=== PATIENT | female | born 1965 | race Caucasian/White ===

== ENCOUNTER → 2016-05-08 | Outpatient (CLI) | payer BC, MEDICARE ==
[~2016-05-08] MED LIST: /ACETCOD2T PO; ACET65TA OR; ALBU0.084 INH; ALBU17IN INH; ALBU83IN INH; ALBUTEROL INH; ALDA25TA2 PO; AMBI5TAB OR; AMBI5TAB PO; AMBIEN PO; ATROVENT0.02% INH; CEFT500T OR; CHAN0.5P6 PO; CIPR0.2S AS; CLIN300C PO; COLA100C2 OR; CORE80CA PO; DIGO0.126 PO; DIOV160T5 PO; DIOV320T PO; DIOV80TA; DOCU10ELUD PO; HYDR25TA6 OR; IBUP200C PO; LASI40TA PO; LASI80TA PO; LEVO25TA5 PO; LISI10TA4 PO; LORTTAB5 PO; MAG-TAB PO; MAG400TA PO; MAGN64TASA PO; MIRALEX PO; MULTIVIT PO; MULTTAB4 PO; PLAQ200T PO; POTASSIUM PO; PRAM0.252 PO; PRED1TAB32 PO; PRED20TA OR; SERT25TA2; SYMB16INH INH; TORS20TA2 PO; TYLE325T5 PO; VENTAER IN; VITA500C24 PO; ZEST10TA4 PO; ZOLO100T PO
[2016-05-08 07:14] LABS: MEAN CORPUSCULAR HEMOGLOBIN 26.6 pg (27.0-33.0); MEAN CORPUSCULAR HGB CONC 30.2 g/dl (32.0-36.5); MEAN CORPUSCULAR VOLUME 88.1 fl (80.0-96.0); RED CELL DISTRIBUTION WIDTH 16.8 % (11.5-14.5); WHITE BLOOD COUNT 5.4 K/mm3 (4.0-10.0)
[2016-05-08 07:26] LABS: INR 1.84
[2016-05-08 07:31] LABS: ANION GAP 10 MEQ/L (8-16); BLOOD UREA NITROGEN 13 MG/DL (7-18); CALCIUM LEVEL 8.5 MG/DL (8.5-10.1); CARBON DIOXIDE LEVEL 29 MEQ/L (21-32); CHLORIDE LEVEL 104 MEQ/L (98-107); CREATININE FOR GFR 0.78 MG/DL (0.55-1.02); GLOMERULAR FILTRATION RATE > 60.0 (>51); GLUCOSE, FASTING 96 MG/DL (70-105); MAGNESIUM LEVEL 2.1 MG/DL (1.8-2.4); POTASSIUM SERUM 4.6 MEQ/L (3.5-5.1); SODIUM LEVEL 143 MEQ/L (136-145)
== END ==
LOC: M LAB 06:25
PROVIDERS: ATTEND Physician Assistant Surgical
DX: I50.9 Heart failure, unspecified (principal)

== ENCOUNTER → 2016-05-14 | Outpatient (CLI) | payer MEDICARE ==
[2016-05-14 07:52] LABS: INR 3.07
[2016-05-14 08:05] LABS: MEAN CORPUSCULAR HGB CONC 30.3 g/dl (32.0-36.5); MEAN CORPUSCULAR VOLUME 89.3 fl (80.0-96.0); RED CELL DISTRIBUTION WIDTH 15.8 % (11.5-14.5); WHITE BLOOD COUNT 5.2 K/mm3 (4.0-10.0)
[2016-05-14 08:12] LABS: ANION GAP 7 MEQ/L (8-16); BLOOD UREA NITROGEN 10 MG/DL (7-18); CALCIUM LEVEL 8.1 MG/DL (8.5-10.1); CARBON DIOXIDE LEVEL 28 MEQ/L (21-32); CHLORIDE LEVEL 106 MEQ/L (98-107); CREATININE FOR GFR 0.94 MG/DL (0.55-1.02); GLOMERULAR FILTRATION RATE > 60.0 (>51); GLUCOSE, FASTING 99 MG/DL (70-105); MAGNESIUM LEVEL 2.5 MG/DL (1.8-2.4); POTASSIUM SERUM 4.4 MEQ/L (3.5-5.1); SODIUM LEVEL 141 MEQ/L (136-145)
== END ==
LOC: M LAB 07:21
PROVIDERS: ATTEND Physician Assistant Surgical
DX: I50.9 Heart failure, unspecified (principal); I42.9 Cardiomyopathy, unspecified; Z95.811 Presence of heart assist device; Z79.01 Long term (current) use of anticoagulants

== ENCOUNTER → 2016-05-22 | Outpatient (CLI) | payer MEDICARE ==
[2016-05-22 06:54] LABS: MEAN CORPUSCULAR HEMOGLOBIN 25.5 pg (27.0-33.0); MEAN CORPUSCULAR HGB CONC 29.8 g/dl (32.0-36.5); MEAN CORPUSCULAR VOLUME 85.5 fl (80.0-96.0); RED CELL DISTRIBUTION WIDTH 17.5 % (11.5-14.5); WHITE BLOOD COUNT 4.8 K/mm3 (4.0-10.0)
[2016-05-22 07:03] LABS: INR 2.83
[2016-05-22 07:12] LABS: ANION GAP 9 MEQ/L (8-16); BLOOD UREA NITROGEN 17 MG/DL (7-18); CALCIUM LEVEL 8.8 MG/DL (8.5-10.1); CARBON DIOXIDE LEVEL 26 MEQ/L (21-32); CHLORIDE LEVEL 104 MEQ/L (98-107); CREATININE FOR GFR 0.95 MG/DL (0.55-1.02); GLOMERULAR FILTRATION RATE > 60.0 (>51); GLUCOSE, FASTING 98 MG/DL (70-105); MAGNESIUM LEVEL 2.3 MG/DL (1.8-2.4); POTASSIUM SERUM 3.8 MEQ/L (3.5-5.1); SODIUM LEVEL 139 MEQ/L (136-145)
== END ==
LOC: M LAB 06:32
PROVIDERS: ATTEND Physician Assistant Surgical
DX: I50.9 Heart failure, unspecified (principal); I42.9 Cardiomyopathy, unspecified; Z95.811 Presence of heart assist device; Z79.01 Long term (current) use of anticoagulants

== ENCOUNTER → 2016-05-29 | Outpatient (CLI) | payer MEDICARE ==
[2016-05-29 06:59] LABS: MEAN CORPUSCULAR HEMOGLOBIN 25.4 pg (27.0-33.0); MEAN CORPUSCULAR VOLUME 84.9 fl (80.0-96.0); RED CELL DISTRIBUTION WIDTH 17.3 % (11.5-14.5); WHITE BLOOD COUNT 6.3 K/mm3 (4.0-10.0)
[2016-05-29 07:02] LABS: INR 3.74
[2016-05-29 07:11] LABS: ANION GAP 7 MEQ/L (8-16); BLOOD UREA NITROGEN 12 MG/DL (7-18); CARBON DIOXIDE LEVEL 28 MEQ/L (21-32); CHLORIDE LEVEL 105 MEQ/L (98-107); CREATININE FOR GFR 0.88 MG/DL (0.55-1.02); GLOMERULAR FILTRATION RATE > 60.0 (>51); GLUCOSE, FASTING 98 MG/DL (70-105); MAGNESIUM LEVEL 2.4 MG/DL (1.8-2.4); POTASSIUM SERUM 4.2 MEQ/L (3.5-5.1); SODIUM LEVEL 140 MEQ/L (136-145)
== END ==
LOC: M LAB 06:32
PROVIDERS: ATTEND Physician Assistant Surgical
DX: I50.9 Heart failure, unspecified (principal); I42.9 Cardiomyopathy, unspecified; Z95.811 Presence of heart assist device; Z79.01 Long term (current) use of anticoagulants

== ENCOUNTER → 2016-06-05 | Outpatient (CLI) | payer MEDICARE ==
[2016-06-05 07:13] LABS: MEAN CORPUSCULAR HEMOGLOBIN 25.4 pg (27.0-33.0); MEAN CORPUSCULAR VOLUME 84.5 fl (80.0-96.0); RED CELL DISTRIBUTION WIDTH 16.6 % (11.5-14.5); WHITE BLOOD COUNT 4.8 K/mm3 (4.0-10.0)
[2016-06-05 07:17] LABS: INR 3.76
[2016-06-05 07:25] LABS: ANION GAP 7 MEQ/L (8-16); BLOOD UREA NITROGEN 14 MG/DL (7-18); CARBON DIOXIDE LEVEL 30 MEQ/L (21-32); CHLORIDE LEVEL 104 MEQ/L (98-107); CREATININE FOR GFR 0.95 MG/DL (0.55-1.02); GLOMERULAR FILTRATION RATE > 60.0 (>51); GLUCOSE, FASTING 90 MG/DL (70-105); POTASSIUM SERUM 4.1 MEQ/L (3.5-5.1); SODIUM LEVEL 141 MEQ/L (136-145)
== END ==
LOC: M LAB 06:40
PROVIDERS: ATTEND Physician Assistant Surgical
DX: I50.9 Heart failure, unspecified (principal); I42.9 Cardiomyopathy, unspecified; Z79.01 Long term (current) use of anticoagulants; Z95.811 Presence of heart assist device

== ENCOUNTER → 2016-06-13 | Outpatient (CLI) | payer MEDICARE ==
[2016-06-13 06:39] LABS: MEAN CORPUSCULAR HEMOGLOBIN 24.7 pg (27.0-33.0); MEAN CORPUSCULAR HGB CONC 29.5 g/dl (32.0-36.5); MEAN CORPUSCULAR VOLUME 83.7 fl (80.0-96.0); RED CELL DISTRIBUTION WIDTH 16.4 % (11.5-14.5)
[2016-06-13 06:45] LABS: INR 3.02
[2016-06-13 06:57] LABS: ANION GAP 7 MEQ/L (8-16); BLOOD UREA NITROGEN 12 MG/DL (7-18); CALCIUM LEVEL 8.2 MG/DL (8.5-10.1); CARBON DIOXIDE LEVEL 29 MEQ/L (21-32); CHLORIDE LEVEL 103 MEQ/L (98-107); CREATININE FOR GFR 0.92 MG/DL (0.55-1.02); GLOMERULAR FILTRATION RATE > 60.0 (>51); GLUCOSE, FASTING 114 MG/DL (70-105); MAGNESIUM LEVEL 2.1 MG/DL (1.8-2.4); POTASSIUM SERUM 3.8 MEQ/L (3.5-5.1); SODIUM LEVEL 139 MEQ/L (136-145)
== END ==
LOC: M LAB 06:10
PROVIDERS: ATTEND Physician Assistant Surgical
DX: Z79.01 Long term (current) use of anticoagulants (principal); I50.9 Heart failure, unspecified; I42.9 Cardiomyopathy, unspecified; Z95.811 Presence of heart assist device

== ENCOUNTER → 2016-06-20 | Outpatient (CLI) | payer MEDICARE ==
[2016-06-20 07:20] LABS: INR 2.98
[2016-06-20 07:21] LABS: MEAN CORPUSCULAR HEMOGLOBIN 25.3 pg (27.0-33.0); MEAN CORPUSCULAR HGB CONC 30.5 g/dl (32.0-36.5); MEAN CORPUSCULAR VOLUME 83.1 fl (80.0-96.0); RED CELL DISTRIBUTION WIDTH 15.9 % (11.5-14.5); WHITE BLOOD COUNT 4.3 K/mm3 (4.0-10.0)
[2016-06-20 07:36] LABS: ANION GAP 8 MEQ/L (8-16); BLOOD UREA NITROGEN 12 MG/DL (7-18); CALCIUM LEVEL 8.5 MG/DL (8.5-10.1); CARBON DIOXIDE LEVEL 30 MEQ/L (21-32); CHLORIDE LEVEL 103 MEQ/L (98-107); CREATININE FOR GFR 0.85 MG/DL (0.55-1.02); GLOMERULAR FILTRATION RATE > 60.0 (>51); GLUCOSE, FASTING 87 MG/DL (70-105); POTASSIUM SERUM 3.8 MEQ/L (3.5-5.1); SODIUM LEVEL 141 MEQ/L (136-145)
== END ==
LOC: M LAB 06:23
PROVIDERS: ATTEND Physician Assistant Surgical
DX: I50.9 Heart failure, unspecified (principal); I42.9 Cardiomyopathy, unspecified; Z95.811 Presence of heart assist device; Z79.01 Long term (current) use of anticoagulants

== ENCOUNTER → 2016-06-27 | Outpatient (CLI) | payer MEDICARE ==
[~2016-06-27] MED LIST changes: +DOXY100T16 PO; +MEDR4PAK PO; +TRAZ50TA4 PO; +WARF-18 PO; +WARF-23 PO; +XANA0.5T PO
[2016-06-27 06:30] LABS: MEAN CORPUSCULAR HEMOGLOBIN 24.2 pg (27.0-33.0); MEAN CORPUSCULAR VOLUME 83.3 fl (80.0-96.0); RED CELL DISTRIBUTION WIDTH 16.6 % (11.5-14.5); WHITE BLOOD COUNT 4.8 K/mm3 (4.0-10.0)
[2016-06-27 06:39] LABS: INR 2.9
[2016-06-27 07:04] LABS: ANION GAP 7 MEQ/L (8-16); BLOOD UREA NITROGEN 12 MG/DL (7-18); CALCIUM LEVEL 7.9 MG/DL (8.5-10.1); CARBON DIOXIDE LEVEL 30 MEQ/L (21-32); CHLORIDE LEVEL 103 MEQ/L (98-107); CREATININE FOR GFR 0.91 MG/DL (0.55-1.02); GLOMERULAR FILTRATION RATE > 60.0 (>51); GLUCOSE, FASTING 130 MG/DL (70-105); MAGNESIUM LEVEL 2.2 MG/DL (1.8-2.4); SODIUM LEVEL 140 MEQ/L (136-145)
== END ==
LOC: M LAB 06:05
PROVIDERS: ATTEND Physician Assistant Surgical
DX: I50.9 Heart failure, unspecified (principal); I42.9 Cardiomyopathy, unspecified; Z95.811 Presence of heart assist device; Z79.01 Long term (current) use of anticoagulants

== ENCOUNTER 2016-06-30 15:21 | Emergency (ER) | payer MEDICARE ==
[~2016-06-30] VITALS: Ht 170.2 cm; Wt 127.0 kg
[~2016-06-30 15:21] MED LIST changes: -DOXY100T16 PO; -MEDR4PAK PO; -TRAZ50TA4 PO; -WARF-18 PO; -WARF-23 PO; -XANA0.5T PO
[2016-06-30] MEDS ORDERED: methylPREDNISolone INJ 125 MG/2 ML VIAL (J2930) IV ONE (16:00)
[2016-06-30] MEDS: IPRATROPIUM 0.5MG/ALBUTEROL 2.5MG INH SOL UD 3ML (DUONEB)(J7620) NEB SCH ×3 (16:10→16:40)
[2016-06-30] MEDS ORDERED: WARF-18 PO (16:12)
[2016-06-30] MEDS ORDERED: XANA0.5T PO (16:12)
[2016-06-30] MEDS ORDERED: WARF-23 PO (16:12)
[2016-06-30] MEDS ORDERED: TRAZ50TA4 PO (16:12)
[2016-06-30 16:17] LABS: INR 3.17
[2016-06-30 16:28] LABS: BASO % 0.2 % (0.0-1.0); EOS # 0.1 K/mm3 (0.0-0.50); EOS % 0.7 % (0.0-3.0); LARGE UNSTAINED CELL # 0.2 K/mm3 (0.0-0.4); LYMPH # 0.3 K/mm3 (1.5-4.5); LYMPH % 2.9 % (24.0-44.0); MEAN CORPUSCULAR HEMOGLOBIN 24.6 pg (27.0-33.0); MEAN CORPUSCULAR HGB CONC 30.4 g/dl (32.0-36.5); MONO # 0.4 K/mm3 (0.0-0.8); NEUTROPHILS # 7.9 K/mm3 (1.8-7.7); NEUTROPHILS % 90.2 % (36.0-66.0); PLATELET COUNT, AUTOMATED 300 k/mm3 (150-450); RED CELL DISTRIBUTION WIDTH 16.6 % (11.5-14.5); WHITE BLOOD COUNT 8.8 K/mm3 (4.0-10.0)
[2016-06-30 16:33] LABS: ANION GAP 6 MEQ/L (8-16); BLOOD UREA NITROGEN 13 MG/DL (7-18); CARBON DIOXIDE LEVEL 30 MEQ/L (21-32); CHLORIDE LEVEL 103 MEQ/L (98-107); CREATININE FOR GFR 0.97 MG/DL (0.55-1.02); GLOMERULAR FILTRATION RATE > 60.0 (>51); GLUCOSE, FASTING 88 MG/DL (70-105); POTASSIUM SERUM 4.2 MEQ/L (3.5-5.1); SODIUM LEVEL 139 MEQ/L (136-145)
[2016-06-30] MEDS ORDERED: MEDR4PAK PO (17:30)
[2016-06-30] MEDS ORDERED: DOXY100T16 PO (17:32)
[2016-06-30 17:55] VITALS: BP 94/62
--- NOTE | 2016-07-01 07:16 | REP ---
PORTABLE CHEST: AP portable view of the chest is performed and compared to prior studies, most recently 04/28/2016. There is cardiomegaly with pulmonary venous hypertension. The findings are similar to the prior exam. There is no evidence of acute infiltrate. The mediastinal silhouette appears unchanged. Left pacemaker is again noted as well as multiple sternal wires. Ventricular assist pump is again seen. IMPRESSION: Cardiomegaly. No new infiltrate. Signed by Brody Carrillo MD 07/01/2016 01:53 P
--- NOTE | 2016-07-01 20:08 | ECGEPIP ---
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
== END 2016-06-30 17:58 | disposition home or self-care (01) ==
LOC: M ED 16:59
DX: J44.1 Chronic obstructive pulmonary disease with (acute) exacerbation (principal); I25.5 Ischemic cardiomyopathy; Z79.899 Other long term (current) drug therapy; Z88.5 Allergy status to narcotic agent; Z88.2 Allergy status to sulfonamides; Z79.01 Long term (current) use of anticoagulants; Z87.891 Personal history of nicotine dependence; Z95.810 Presence of automatic (implantable) cardiac defibrillator; I10 Essential (primary) hypertension; I83.90 Asymptomatic varicose veins of unspecified lower extremity; G47.30 Sleep apnea, unspecified; N39.3 Stress incontinence (female) (male); F41.9 Anxiety disorder, unspecified; F32.9 Major depressive disorder, single episode, unspecified
CPT/HCPCS: 36415; 71010; 80048; 82550; 82553; 83615; 83880; 84484; 85025; 85610; 87040; 87804; 93005; 93041; 94640; 94760; 96374; 99285; J2930

== ENCOUNTER 2016-07-01 16:07 | Emergency (ER) | payer MEDICARE ==
[~2016-07-01] VITALS: Ht 170.2 cm; Wt 127.0 kg
[~2016-07-01 16:07] MED LIST changes: +DOXY100T16 PO; +MEDR4PAK PO; +TRAZ50TA4 PO; +WARF-18 PO; +WARF-23 PO; +XANA0.5T PO
[2016-07-01] MEDS: IPRATROPIUM 0.5MG/ALBUTEROL 2.5MG INH SOL UD 3ML (DUONEB)(J7620) NEB SCH ×3 (17:51→18:22)
[2016-07-01] MEDS ORDERED: methylPREDNISolone INJ 125 MG/2 ML VIAL (J2930) IV ONE (18:45)
[2016-07-01] MEDS ORDERED: ACETAMINOPHEN TAB 650MG DOSE (2X325MG) PO ONE (19:30)
[2016-07-01 19:36] VITALS: BP 110/70
== END 2016-07-01 19:37 | disposition short-term general hospital (02) ==
LOC: EDBD 16:07 → M ED 17:23
DX: J44.1 Chronic obstructive pulmonary disease with (acute) exacerbation (principal); Z79.899 Other long term (current) drug therapy; Z95.811 Presence of heart assist device; Z79.01 Long term (current) use of anticoagulants; Z88.2 Allergy status to sulfonamides; Z88.5 Allergy status to narcotic agent; F17.210 Nicotine dependence, cigarettes, uncomplicated
CPT/HCPCS: 94640; 96374; 99284; J2930

== ENCOUNTER → 2016-07-16 | Outpatient (CLI) | payer MEDICARE ==
[2016-07-16 07:26] LABS: MEAN CORPUSCULAR HEMOGLOBIN 25.9 pg (27.0-33.0); MEAN CORPUSCULAR HGB CONC 30.6 g/dl (32.0-36.5); MEAN CORPUSCULAR VOLUME 84.6 fl (80.0-96.0); RED CELL DISTRIBUTION WIDTH 18.5 % (11.5-14.5)
[2016-07-16 07:34] LABS: INR 2.46
[2016-07-16 07:49] LABS: ANION GAP 7 MEQ/L (8-16); BLOOD UREA NITROGEN 16 MG/DL (7-18); CARBON DIOXIDE LEVEL 33 MEQ/L (21-32); CHLORIDE LEVEL 102 MEQ/L (98-107); CREATININE FOR GFR 0.99 MG/DL (0.55-1.02); GLOMERULAR FILTRATION RATE > 60.0 (>51); GLUCOSE, FASTING 81 MG/DL (70-105); MAGNESIUM LEVEL 2.1 MG/DL (1.8-2.4); POTASSIUM SERUM 3.9 MEQ/L (3.5-5.1); SODIUM LEVEL 142 MEQ/L (136-145)
== END ==
LOC: M LAB 06:58
PROVIDERS: ATTEND Physician Assistant Surgical
DX: I50.9 Heart failure, unspecified (principal); I42.9 Cardiomyopathy, unspecified; Z79.01 Long term (current) use of anticoagulants; Z95.811 Presence of heart assist device

== ENCOUNTER → 2016-07-24 | Outpatient (CLI) | payer MEDICARE ==
[2016-07-24 06:48] LABS: MEAN CORPUSCULAR HEMOGLOBIN 26.2 pg (27.0-33.0); MEAN CORPUSCULAR HGB CONC 30.6 g/dl (32.0-36.5); MEAN CORPUSCULAR VOLUME 85.6 fl (80.0-96.0); RED CELL DISTRIBUTION WIDTH 19.4 % (11.5-14.5); WHITE BLOOD COUNT 4.4 K/mm3 (4.0-10.0)
[2016-07-24 06:54] LABS: INR 3.13
[2016-07-24 07:27] LABS: ANION GAP 6 MEQ/L (8-16); BLOOD UREA NITROGEN 16 MG/DL (7-18); CALCIUM LEVEL 8.2 MG/DL (8.5-10.1); CARBON DIOXIDE LEVEL 31 MEQ/L (21-32); CHLORIDE LEVEL 103 MEQ/L (98-107); CREATININE FOR GFR 0.91 MG/DL (0.55-1.02); GLOMERULAR FILTRATION RATE > 60.0 (>51); GLUCOSE, FASTING 77 MG/DL (70-105); MAGNESIUM LEVEL 2.2 MG/DL (1.8-2.4); POTASSIUM SERUM 4.3 MEQ/L (3.5-5.1); SODIUM LEVEL 140 MEQ/L (136-145)
== END ==
LOC: M LAB 06:27
PROVIDERS: ATTEND Physician Assistant Surgical
DX: I50.9 Heart failure, unspecified (principal); I42.9 Cardiomyopathy, unspecified

== ENCOUNTER → 2016-08-01 | Outpatient (CLI) | payer MEDICARE ==
[2016-08-01 07:04] LABS: INR 2.58; MEAN CORPUSCULAR HEMOGLOBIN 26.7 pg (27.0-33.0); MEAN CORPUSCULAR HGB CONC 30.9 g/dl (32.0-36.5); MEAN CORPUSCULAR VOLUME 86.6 fl (80.0-96.0); RED CELL DISTRIBUTION WIDTH 20.7 % (11.5-14.5); WHITE BLOOD COUNT 3.4 K/mm3 (4.0-10.0)
[2016-08-01 07:41] LABS: ANION GAP 6 MEQ/L (8-16); BLOOD UREA NITROGEN 17 MG/DL (7-18); CALCIUM LEVEL 7.7 MG/DL (8.5-10.1); CARBON DIOXIDE LEVEL 29 MEQ/L (21-32); CHLORIDE LEVEL 105 MEQ/L (98-107); CREATININE FOR GFR 0.91 MG/DL (0.55-1.02); GLOMERULAR FILTRATION RATE > 60.0 (>51); GLUCOSE, FASTING 92 MG/DL (70-105); MAGNESIUM LEVEL 2.1 MG/DL (1.8-2.4); POTASSIUM SERUM 4.1 MEQ/L (3.5-5.1); SODIUM LEVEL 140 MEQ/L (136-145)
== END ==
LOC: M LAB 06:14
PROVIDERS: ATTEND Physician Assistant Surgical
DX: I50.9 Heart failure, unspecified (principal)

== ENCOUNTER → 2016-08-02 | Outpatient (CLI) | payer MEDICARE ==
[2016-08-02 12:47] LABS: INR 2.59; MEAN CORPUSCULAR HEMOGLOBIN 27.7 pg (27.0-33.0); MEAN CORPUSCULAR HGB CONC 31.5 g/dl (32.0-36.5); RED CELL DISTRIBUTION WIDTH 20.6 % (11.5-14.5); WHITE BLOOD COUNT 4.1 K/mm3 (4.0-10.0)
[2016-08-02 13:07] LABS: ANION GAP 4 MEQ/L (8-16); BLOOD UREA NITROGEN 21 MG/DL (7-18); CALCIUM LEVEL 8.2 MG/DL (8.5-10.1); CARBON DIOXIDE LEVEL 30 MEQ/L (21-32); CHLORIDE LEVEL 106 MEQ/L (98-107); CREATININE FOR GFR 0.96 MG/DL (0.55-1.02); GLOMERULAR FILTRATION RATE > 60.0 (>51); GLUCOSE, FASTING 112 MG/DL (70-105); MAGNESIUM LEVEL 2.3 MG/DL (1.8-2.4); POTASSIUM SERUM 4.3 MEQ/L (3.5-5.1); SODIUM LEVEL 140 MEQ/L (136-145)
== END ==
LOC: M LAB 12:01
PROVIDERS: ATTEND Physician Assistant Surgical

== ENCOUNTER 2016-08-06 10:26 | Outpatient (CLI) | payer MEDICARE ==
[~2016-08-06] VITALS: Ht 166.9 cm; Wt 134.7 kg
[2016-08-06] MEDS ORDERED: diphenhydrAMINE 25 MG CAP PO ONE (10:45)
[2016-08-06] MEDS ORDERED: ACETAMINOPHEN TAB 650MG DOSE (2X325MG) PO ONE (10:45)
[2016-08-06] MEDS ORDERED: FUROSEMIDE 40 MG/4 ML VIAL (J1940) IV ONE (11:30)
[2016-08-06 17:05] LABS: MEAN CORPUSCULAR HEMOGLOBIN 27.2 pg (27.0-33.0); MEAN CORPUSCULAR HGB CONC 31.7 g/dl (32.0-36.5); WHITE BLOOD COUNT 6.6 K/mm3 (4.0-10.0)
== END 2016-08-06 17:25 | disposition home or self-care (01) ==
LOC: M INFU 10:26
PROVIDERS: ATTEND Physician Assistant
DX: D64.9 Anemia, unspecified (principal); I42.9 Cardiomyopathy, unspecified; I50.20 Unspecified systolic (congestive) heart failure; Z51.81 Encounter for therapeutic drug level monitoring; Z79.01 Long term (current) use of anticoagulants; Z79.811 Long term (current) use of aromatase inhibitors; Z79.899 Other long term (current) drug therapy; Z88.2 Allergy status to sulfonamides; Z88.5 Allergy status to narcotic agent
CPT/HCPCS: 36415; 36430; 80048; 83615; 83735; 85027; 85610; 86850; 86900; 86901; 86920; G0463; J1940; P9016

== ENCOUNTER → 2016-08-06 | Outpatient (CLI) | payer MEDICARE ==
[2016-08-06 07:23] LABS: INR 2.66
[2016-08-06 07:27] LABS: MEAN CORPUSCULAR HEMOGLOBIN 26.4 pg (27.0-33.0); MEAN CORPUSCULAR HGB CONC 30.2 g/dl (32.0-36.5); MEAN CORPUSCULAR VOLUME 87.3 fl (80.0-96.0); RED CELL DISTRIBUTION WIDTH 20.2 % (11.5-14.5); WHITE BLOOD COUNT 4.8 K/mm3 (4.0-10.0)
[2016-08-06 07:35] LABS: ANION GAP 7 MEQ/L (8-16); BLOOD UREA NITROGEN 20 MG/DL (7-18); CALCIUM LEVEL 8.2 MG/DL (8.5-10.1); CARBON DIOXIDE LEVEL 28 MEQ/L (21-32); CHLORIDE LEVEL 106 MEQ/L (98-107); GLOMERULAR FILTRATION RATE > 60.0 (>51); GLUCOSE, FASTING 80 MG/DL (70-105); MAGNESIUM LEVEL 2.1 MG/DL (1.8-2.4); POTASSIUM SERUM 4.1 MEQ/L (3.5-5.1); SODIUM LEVEL 141 MEQ/L (136-145)
== END ==
LOC: M LAB 06:12
PROVIDERS: ATTEND Physician Assistant Surgical
DX: I50.9 Heart failure, unspecified (principal); I42.9 Cardiomyopathy, unspecified; Z51.81 Encounter for therapeutic drug level monitoring; Z79.01 Long term (current) use of anticoagulants; Z95.811 Presence of heart assist device

== ENCOUNTER → 2016-08-13 | Outpatient (CLI) | payer MEDICARE ==
[2016-08-13 07:29] LABS: MEAN CORPUSCULAR HEMOGLOBIN 28.4 pg (27.0-33.0); MEAN CORPUSCULAR HGB CONC 32.2 g/dl (32.0-36.5); MEAN CORPUSCULAR VOLUME 88.3 fl (80.0-96.0); RED CELL DISTRIBUTION WIDTH 18.2 % (11.5-14.5); WHITE BLOOD COUNT 4.7 K/mm3 (4.0-10.0)
[2016-08-13 07:34] LABS: INR 1.68
[2016-08-13 07:53] LABS: ANION GAP 5 MEQ/L (8-16); BLOOD UREA NITROGEN 13 MG/DL (7-18); CALCIUM LEVEL 8.1 MG/DL (8.5-10.1); CARBON DIOXIDE LEVEL 32 MEQ/L (21-32); CHLORIDE LEVEL 104 MEQ/L (98-107); GLOMERULAR FILTRATION RATE > 60.0 (>51); GLUCOSE, FASTING 87 MG/DL (70-105); MAGNESIUM LEVEL 2.2 MG/DL (1.8-2.4); SODIUM LEVEL 141 MEQ/L (136-145)
== END ==
LOC: M LAB 07:05
PROVIDERS: ATTEND Physician Assistant Surgical
DX: I50.9 Heart failure, unspecified (principal); I42.9 Cardiomyopathy, unspecified

== ENCOUNTER → 2016-08-16 | Outpatient (CLI) | payer MEDICARE ==
--- NOTE | 2016-08-16 13:49 | REP ---
DIGITAL DIAGNOSTIC UNILATERAL RIGHT BREAST MAMMOGRAPHY WITH CAD AND FOCUSED RIGHT BREAST SONOGRAPHY: HISTORY: New right breast lump. The patient is on anticoagulant therapy and has a left ventricular assist device. She reports a new lump in the inferomedial quadrant of the right breast for the past week. There is ecchymosis of the skin at the site. A skin marker is affixed to the skin for today's mammography. MAMMOGRAPHIC FINDINGS: CC, MLO, and magnified focal spot compression CC, MLO and true ML views are obtained at the site of the lump in the right breast. There is an ill-defined linear density just beneath the skin at the site of the palpable lump in the inferomedial right breast. Slight dermal thickening is seen. The ill-defined density measures approximately 18 mm in greatest diameter. No spiculation or microcalcification is seen. There is a needle biopsy marker clip projecting in the lateral aspect of the right breast. No other significant mammographic finding is seen. Normal lymph nodes are again noted in the right axilla. SONOGRAPHIC FINDINGS: The right breast is scanned from 2- o'clock position to the 4-o'clock position through the area of palpable lump and bruising. Somewhat homogeneous background echotexture is seen. There is a complex cystic area with hyperechoic edges in the region of the palpable lump measuring 1.5 x 1.3 x 0.9 cm, 5.4 cm from the nipple. Given the overlying ecchymosis and history of anticoagulant therapy, this is felt to most likely represent a small soft tissue hematoma. IMPRESSION: BIRADS category 0 incomplete right breast imaging. Ill-defined density at the site of the palpable lump corresponds to a hypoechoic complex cystic area 1.5 cm in greatest diameter sonographically. This is most likely a small hematoma. Follow-up ultrasound is recommended in 6 to 8 weeks. BI-RADS/ACR category 0 mammogram, incomplete. Additional imaging and/or prior images are needed before a final assessment can be assigned. This mammogram was interpreted with the aid of an FDA-approved computer-aided detection system. The patient states she/he had a clinical breast exam in August 16, 2016 The patient letter being requested is M0. Signed by González Lafleur MD 08/16/2016 04:47 P
== END ==
LOC: M RAD 09:59
PROVIDERS: ATTEND Rehabilitation Practitioner
DX: N63 Unspecified lump in breast (principal)
CPT/HCPCS: 76642; G0206

== ENCOUNTER → 2016-08-21 | Outpatient (CLI) | payer MEDICARE ==
[2016-08-21 08:51] LABS: INR 2.34
[2016-08-21 08:54] LABS: MEAN CORPUSCULAR HEMOGLOBIN 25.9 pg (27.0-33.0); MEAN CORPUSCULAR HGB CONC 29.5 g/dl (32.0-36.5); MEAN CORPUSCULAR VOLUME 87.8 fl (80.0-96.0); RED CELL DISTRIBUTION WIDTH 16.6 % (11.5-14.5)
[2016-08-21 09:06] LABS: ANION GAP 7 MEQ/L (8-16); BLOOD UREA NITROGEN 13 MG/DL (7-18); CALCIUM LEVEL 7.8 MG/DL (8.5-10.1); CARBON DIOXIDE LEVEL 28 MEQ/L (21-32); CHLORIDE LEVEL 105 MEQ/L (98-107); CREATININE FOR GFR 0.94 MG/DL (0.55-1.02); GLOMERULAR FILTRATION RATE > 60.0 (>51); GLUCOSE, FASTING 85 MG/DL (70-105); MAGNESIUM LEVEL 2.2 MG/DL (1.8-2.4); POTASSIUM SERUM 4.1 MEQ/L (3.5-5.1); SODIUM LEVEL 140 MEQ/L (136-145)
== END ==
LOC: M LAB 08:06
PROVIDERS: ATTEND Physician Assistant Surgical
DX: I50.9 Heart failure, unspecified (principal)

== ENCOUNTER → 2016-08-27 | Outpatient (CLI) | payer MEDICARE ==
[2016-08-27 07:02] LABS: MEAN CORPUSCULAR HEMOGLOBIN 27.4 pg (27.0-33.0); MEAN CORPUSCULAR HGB CONC 31.9 g/dl (32.0-36.5); MEAN CORPUSCULAR VOLUME 85.9 fl (80.0-96.0); RED CELL DISTRIBUTION WIDTH 16.6 % (11.5-14.5); WHITE BLOOD COUNT 5.8 K/mm3 (4.0-10.0)
[2016-08-27 07:10] LABS: INR 2.16
[2016-08-27 07:19] LABS: CALCIUM LEVEL 7.5 MG/DL (8.5-10.1); CREATININE FOR GFR 1.14 MG/DL (0.55-1.02); GLOMERULAR FILTRATION RATE 53.5 (>51); MAGNESIUM LEVEL 2.2 MG/DL (1.8-2.4); POTASSIUM SERUM 3.9 MEQ/L (3.5-5.1)
== END ==
LOC: M LAB 06:18
PROVIDERS: ATTEND Physician Assistant Surgical
DX: I50.9 Heart failure, unspecified (principal); I42.9 Cardiomyopathy, unspecified; Z95.811 Presence of heart assist device; Z79.01 Long term (current) use of anticoagulants

== ENCOUNTER → 2016-09-04 | Outpatient (CLI) | payer MEDICARE ==
[2016-09-04 07:30] LABS: MEAN CORPUSCULAR HGB CONC 30.2 g/dl (32.0-36.5); MEAN CORPUSCULAR VOLUME 85.9 fl (80.0-96.0); RED CELL DISTRIBUTION WIDTH 16.3 % (11.5-14.5); WHITE BLOOD COUNT 6.8 K/mm3 (4.0-10.0)
[2016-09-04 07:39] LABS: ANION GAP 3 MEQ/L (8-16); BLOOD UREA NITROGEN 18 MG/DL (7-18); CALCIUM LEVEL 8.3 MG/DL (8.5-10.1); CARBON DIOXIDE LEVEL 31 MEQ/L (21-32); CHLORIDE LEVEL 105 MEQ/L (98-107); CREATININE FOR GFR 0.78 MG/DL (0.55-1.02); GLOMERULAR FILTRATION RATE > 60.0 (>51); GLUCOSE, FASTING 106 MG/DL (70-105); INR 1.88; MAGNESIUM LEVEL 2.6 MG/DL (1.8-2.4); POTASSIUM SERUM 4.2 MEQ/L (3.5-5.1); SODIUM LEVEL 139 MEQ/L (136-145)
== END ==
LOC: M LAB 06:30
PROVIDERS: ATTEND Physician Assistant Surgical
DX: I50.9 Heart failure, unspecified (principal); I42.9 Cardiomyopathy, unspecified; Z95.811 Presence of heart assist device; Z79.01 Long term (current) use of anticoagulants

== ENCOUNTER → 2016-09-11 | Outpatient (CLI) | payer MEDICARE ==
[2016-09-11 06:41] LABS: MEAN CORPUSCULAR HEMOGLOBIN 24.7 pg (27.0-33.0); MEAN CORPUSCULAR HGB CONC 29.7 g/dl (32.0-36.5); MEAN CORPUSCULAR VOLUME 83.3 fl (80.0-96.0); RED CELL DISTRIBUTION WIDTH 16.5 % (11.5-14.5); WHITE BLOOD COUNT 5.4 K/mm3 (4.0-10.0)
[2016-09-11 06:48] LABS: INR 1.95
[2016-09-11 06:54] LABS: ANION GAP 4 MEQ/L (8-16); BLOOD UREA NITROGEN 22 MG/DL (7-18); CALCIUM LEVEL 8.1 MG/DL (8.5-10.1); CARBON DIOXIDE LEVEL 33 MEQ/L (21-32); CHLORIDE LEVEL 103 MEQ/L (98-107); CREATININE FOR GFR 1.02 MG/DL (0.55-1.02); GLOMERULAR FILTRATION RATE > 60.0 (>51); GLUCOSE, FASTING 113 MG/DL (70-105); MAGNESIUM LEVEL 2.2 MG/DL (1.8-2.4); POTASSIUM SERUM 4.1 MEQ/L (3.5-5.1); SODIUM LEVEL 140 MEQ/L (136-145)
== END ==
LOC: M LAB 06:09
PROVIDERS: ATTEND Physician Assistant Surgical
DX: I50.9 Heart failure, unspecified (principal); I42.9 Cardiomyopathy, unspecified; Z95.811 Presence of heart assist device; Z79.01 Long term (current) use of anticoagulants

== ENCOUNTER → 2016-09-18 | Outpatient (CLI) | payer MEDICARE ==
[2016-09-18 07:12] LABS: INR 1.98
[2016-09-18 07:19] LABS: MEAN CORPUSCULAR HEMOGLOBIN 24.8 pg (27.0-33.0); MEAN CORPUSCULAR HGB CONC 29.9 g/dl (32.0-36.5); MEAN CORPUSCULAR VOLUME 82.9 fl (80.0-96.0); RED CELL DISTRIBUTION WIDTH 17.1 % (11.5-14.5); WHITE BLOOD COUNT 5.6 K/mm3 (4.0-10.0)
[2016-09-18 07:23] LABS: ALBUMIN 3.4 GM/DL (3.2-5.2); ALBUMIN/GLOBULIN RATIO 1.06 (1.00-1.93); ALKALINE PHOSPHATASE 56 U/L (45-117); ALT/SGPT 30 U/L (12-78); ANION GAP 6 MEQ/L (8-16); AST/SGOT 19 U/L (15-37); BILIRUBIN,TOTAL 0.3 MG/DL (0.2-1.0); BLOOD UREA NITROGEN 13 MG/DL (7-18); CALCIUM LEVEL 7.7 MG/DL (8.5-10.1); CARBON DIOXIDE LEVEL 30 MEQ/L (21-32); CHLORIDE LEVEL 105 MEQ/L (98-107); CREATININE FOR GFR 0.87 MG/DL (0.55-1.02); GLOMERULAR FILTRATION RATE > 60.0 (>51); GLUCOSE, FASTING 96 MG/DL (70-105); MAGNESIUM LEVEL 2.2 MG/DL (1.8-2.4); POTASSIUM SERUM 4.1 MEQ/L (3.5-5.1); SODIUM LEVEL 141 MEQ/L (136-145); TOTAL PROTEIN 6.6 GM/DL (6.4-8.2)
== END ==
LOC: M LAB 06:37
PROVIDERS: ATTEND Physician Assistant Surgical
DX: Z95.811 Presence of heart assist device (principal)

== ENCOUNTER → 2016-10-03 | Outpatient (CLI) | payer MEDICARE ==
[2016-10-03 06:37] LABS: MEAN CORPUSCULAR HEMOGLOBIN 25.3 pg (27.0-33.0); MEAN CORPUSCULAR HGB CONC 30.7 g/dl (32.0-36.5); MEAN CORPUSCULAR VOLUME 82.4 fl (80.0-96.0); RED CELL DISTRIBUTION WIDTH 17.6 % (11.5-14.5)
[2016-10-03 06:45] LABS: INR 1.58
[2016-10-03 07:00] LABS: ALBUMIN 3.8 GM/DL (3.2-5.2); ALBUMIN/GLOBULIN RATIO 1.09 (1.00-1.93); BILIRUBIN,TOTAL 0.4 MG/DL (0.2-1.0); CALCIUM LEVEL 8.3 MG/DL (8.5-10.1); CREATININE FOR GFR 1.04 MG/DL (0.55-1.02); GLOMERULAR FILTRATION RATE 59.5 (>51); MAGNESIUM LEVEL 2.2 MG/DL (1.8-2.4); POTASSIUM SERUM 3.8 MEQ/L (3.5-5.1); TOTAL PROTEIN 7.3 GM/DL (6.4-8.2)
== END ==
LOC: M LAB 06:15
PROVIDERS: ATTEND Physician Assistant Surgical
DX: Z95.811 Presence of heart assist device (principal)

== ENCOUNTER → 2016-10-10 | Outpatient (CLI) | payer MEDICARE ==
[2016-10-10 08:28] LABS: MEAN CORPUSCULAR HEMOGLOBIN 25.9 pg (27.0-33.0); MEAN CORPUSCULAR HGB CONC 31.1 g/dl (32.0-36.5); WHITE BLOOD COUNT 3.5 K/mm3 (4.0-10.0)
[2016-10-10 08:33] LABS: INR 2.02
[2016-10-10 08:52] LABS: ALBUMIN 3.4 GM/DL (3.2-5.2); ALBUMIN/GLOBULIN RATIO 1.13 (1.00-1.93); ALKALINE PHOSPHATASE 57 U/L (45-117); ALT/SGPT 32 U/L (12-78); ANION GAP 4 MEQ/L (8-16); AST/SGOT 27 U/L (15-37); BILIRUBIN,TOTAL 0.4 MG/DL (0.2-1.0); BLOOD UREA NITROGEN 17 MG/DL (7-18); CALCIUM LEVEL 8.2 MG/DL (8.5-10.1); CARBON DIOXIDE LEVEL 33 MEQ/L (21-32); CHLORIDE LEVEL 100 MEQ/L (98-107); CREATININE FOR GFR 0.96 MG/DL (0.55-1.02); GLOMERULAR FILTRATION RATE > 60.0 (>51); GLUCOSE, FASTING 87 MG/DL (70-105); MAGNESIUM LEVEL 2.2 MG/DL (1.8-2.4); POTASSIUM SERUM 4.1 MEQ/L (3.5-5.1); SODIUM LEVEL 137 MEQ/L (136-145); TOTAL PROTEIN 6.4 GM/DL (6.4-8.2)
== END ==
LOC: M LAB 07:40
PROVIDERS: ATTEND Physician Assistant Surgical
DX: Z95.811 Presence of heart assist device (principal)

== ENCOUNTER → 2016-10-18 | Outpatient (CLI) | payer MEDICARE ==
[2016-10-18 07:02] LABS: MEAN CORPUSCULAR HEMOGLOBIN 25.9 pg (27.0-33.0); MEAN CORPUSCULAR HGB CONC 31.4 g/dl (32.0-36.5); MEAN CORPUSCULAR VOLUME 82.7 fl (80.0-96.0); RED CELL DISTRIBUTION WIDTH 18.6 % (11.5-14.5); WHITE BLOOD COUNT 5.4 K/mm3 (4.0-10.0)
[2016-10-18 07:24] LABS: ALBUMIN 3.7 GM/DL (3.2-5.2); ALBUMIN/GLOBULIN RATIO 1.03 (1.00-1.93); ALKALINE PHOSPHATASE 64 U/L (45-117); ALT/SGPT 31 U/L (12-78); ANION GAP 5 MEQ/L (8-16); AST/SGOT 27 U/L (15-37); BILIRUBIN,TOTAL 0.5 MG/DL (0.2-1.0); BLOOD UREA NITROGEN 23 MG/DL (7-18); CALCIUM LEVEL 8.6 MG/DL (8.5-10.1); CARBON DIOXIDE LEVEL 33 MEQ/L (21-32); CHLORIDE LEVEL 100 MEQ/L (98-107); CREATININE FOR GFR 1.01 MG/DL (0.55-1.02); GLOMERULAR FILTRATION RATE > 60.0 (>51); GLUCOSE, FASTING 102 MG/DL (70-105); POTASSIUM SERUM 4.4 MEQ/L (3.5-5.1); SODIUM LEVEL 138 MEQ/L (136-145); TOTAL PROTEIN 7.3 GM/DL (6.4-8.2)
== END ==
LOC: M LAB 06:16
PROVIDERS: ATTEND Family Medicine
DX: K92.2 Gastrointestinal hemorrhage, unspecified (principal); Z95.811 Presence of heart assist device

== ENCOUNTER → 2016-10-18 | Outpatient (CLI) | payer MEDICARE ==
[2016-10-18 07:03] LABS: MEAN CORPUSCULAR HEMOGLOBIN 27.3 pg (27.0-33.0); MEAN CORPUSCULAR VOLUME 82.8 fl (80.0-96.0); RED CELL DISTRIBUTION WIDTH 18.5 % (11.5-14.5); WHITE BLOOD COUNT 5.2 K/mm3 (4.0-10.0)
[2016-10-18 07:07] LABS: INR 1.65
[2016-10-18 07:23] LABS: ALBUMIN 3.7 GM/DL (3.2-5.2); ALBUMIN/GLOBULIN RATIO 1.09 (1.00-1.93); ALKALINE PHOSPHATASE 65 U/L (45-117); ALT/SGPT 30 U/L (12-78); ANION GAP 7 MEQ/L (8-16); AST/SGOT 27 U/L (15-37); BILIRUBIN,TOTAL 0.4 MG/DL (0.2-1.0); BLOOD UREA NITROGEN 22 MG/DL (7-18); CALCIUM LEVEL 8.5 MG/DL (8.5-10.1); CARBON DIOXIDE LEVEL 32 MEQ/L (21-32); CHLORIDE LEVEL 100 MEQ/L (98-107); CREATININE FOR GFR 1.03 MG/DL (0.55-1.02); GLOMERULAR FILTRATION RATE > 60.0 (>51); GLUCOSE, FASTING 100 MG/DL (70-105); MAGNESIUM LEVEL 2.4 MG/DL (1.8-2.4); POTASSIUM SERUM 4.1 MEQ/L (3.5-5.1); SODIUM LEVEL 139 MEQ/L (136-145); TOTAL PROTEIN 7.1 GM/DL (6.4-8.2)
== END ==
LOC: M LAB 06:20
PROVIDERS: ATTEND Physician Assistant Surgical
DX: Z95.811 Presence of heart assist device (principal); K92.9 Disease of digestive system, unspecified

== ENCOUNTER → 2016-10-23 | Outpatient (CLI) | payer MEDICARE ==
[2016-10-23 07:57] LABS: MEAN CORPUSCULAR HEMOGLOBIN 26.1 pg (27.0-33.0); MEAN CORPUSCULAR HGB CONC 31.2 g/dl (32.0-36.5); MEAN CORPUSCULAR VOLUME 83.6 fl (80.0-96.0); RED CELL DISTRIBUTION WIDTH 19.3 % (11.5-14.5); WHITE BLOOD COUNT 4.5 K/mm3 (4.0-10.0)
[2016-10-23 08:11] LABS: ALBUMIN 3.8 GM/DL (3.2-5.2); ALBUMIN/GLOBULIN RATIO 1.09 (1.00-1.93); ALKALINE PHOSPHATASE 61 U/L (45-117); ALT/SGPT 31 U/L (12-78); ANION GAP 7 MEQ/L (8-16); AST/SGOT 27 U/L (15-37); BILIRUBIN,TOTAL 0.5 MG/DL (0.2-1.0); BLOOD UREA NITROGEN 27 MG/DL (7-18); CALCIUM LEVEL 8.6 MG/DL (8.5-10.1); CARBON DIOXIDE LEVEL 30 MEQ/L (21-32); CHLORIDE LEVEL 101 MEQ/L (98-107); CREATININE FOR GFR 0.91 MG/DL (0.55-1.02); GLOMERULAR FILTRATION RATE > 60.0 (>51); GLUCOSE, FASTING 82 MG/DL (70-105); MAGNESIUM LEVEL 2.5 MG/DL (1.8-2.4); POTASSIUM SERUM 3.9 MEQ/L (3.5-5.1); SODIUM LEVEL 138 MEQ/L (136-145); TOTAL PROTEIN 7.3 GM/DL (6.4-8.2)
[2016-10-23 08:12] LABS: INR 1.93
== END ==
LOC: M LAB 06:54
PROVIDERS: ATTEND Physician Assistant Surgical
DX: Z95.811 Presence of heart assist device (principal)

== ENCOUNTER → 2016-10-30 | Outpatient (CLI) | payer MEDICARE ==
[~2016-10-30] MED LIST changes: -IBUP200C PO; +IBUP200C10 PO; +TRAZ50TA11 PO; -TRAZ50TA4 PO
[2016-10-30 08:48] LABS: MEAN CORPUSCULAR HEMOGLOBIN 26.9 pg (27.0-33.0); MEAN CORPUSCULAR HGB CONC 31.7 g/dl (32.0-36.5); MEAN CORPUSCULAR VOLUME 84.9 fl (80.0-96.0); RED CELL DISTRIBUTION WIDTH 20.3 % (11.5-14.5); WHITE BLOOD COUNT 3.8 K/mm3 (4.0-10.0)
[2016-10-30 08:53] LABS: INR 1.91
[2016-10-30 09:25] LABS: ALBUMIN 3.9 GM/DL (3.2-5.2); ALBUMIN/GLOBULIN RATIO 1.18 (1.00-1.93); ALKALINE PHOSPHATASE 61 U/L (45-117); ALT/SGPT 33 U/L (12-78); ANION GAP 7 MEQ/L (8-16); AST/SGOT 28 U/L (15-37); BILIRUBIN,TOTAL 0.5 MG/DL (0.2-1.0); BLOOD UREA NITROGEN 21 MG/DL (7-18); CALCIUM LEVEL 8.5 MG/DL (8.5-10.1); CARBON DIOXIDE LEVEL 33 MEQ/L (21-32); CHLORIDE LEVEL 97 MEQ/L (98-107); GLOMERULAR FILTRATION RATE > 60.0 (>51); GLUCOSE, FASTING 87 MG/DL (70-105); POTASSIUM SERUM 3.6 MEQ/L (3.5-5.1); SODIUM LEVEL 137 MEQ/L (136-145); TOTAL PROTEIN 7.2 GM/DL (6.4-8.2)
== END ==
LOC: M LAB 08:16
PROVIDERS: ATTEND Physician Assistant Surgical
DX: Z95.811 Presence of heart assist device (principal)

== ENCOUNTER → 2016-11-14 | Outpatient (CLI) | payer MEDICARE ==
[2016-11-14 07:40] LABS: MEAN CORPUSCULAR HEMOGLOBIN 27.8 pg (27.0-33.0); MEAN CORPUSCULAR HGB CONC 32.7 g/dl (32.0-36.5); MEAN CORPUSCULAR VOLUME 85.2 fl (80.0-96.0); RED CELL DISTRIBUTION WIDTH 20.7 % (11.5-14.5); WHITE BLOOD COUNT 5.7 K/mm3 (4.0-10.0)
[2016-11-14 07:48] LABS: INR 1.96
[2016-11-14 08:05] LABS: ALBUMIN 3.7 GM/DL (3.2-5.2); ALBUMIN/GLOBULIN RATIO 1.06 (1.00-1.93); ALKALINE PHOSPHATASE 62 U/L (45-117); ALT/SGPT 35 U/L (12-78); ANION GAP 7 MEQ/L (8-16); AST/SGOT 29 U/L (15-37); BILIRUBIN,TOTAL 0.6 MG/DL (0.2-1.0); BLOOD UREA NITROGEN 21 MG/DL (7-18); CALCIUM LEVEL 8.7 MG/DL (8.5-10.1); CARBON DIOXIDE LEVEL 32 MEQ/L (21-32); CHLORIDE LEVEL 99 MEQ/L (98-107); CREATININE FOR GFR 0.94 MG/DL (0.55-1.02); GLOMERULAR FILTRATION RATE > 60.0 (>51); GLUCOSE, FASTING 84 MG/DL (70-105); MAGNESIUM LEVEL 2.3 MG/DL (1.8-2.4); POTASSIUM SERUM 3.8 MEQ/L (3.5-5.1); SODIUM LEVEL 138 MEQ/L (136-145); TOTAL PROTEIN 7.2 GM/DL (6.4-8.2)
== END ==
LOC: M LAB 06:58
PROVIDERS: ATTEND Physician Assistant Surgical
DX: Z95.811 Presence of heart assist device (principal)

== ENCOUNTER → 2016-11-19 | Outpatient (CLI) | payer MEDICARE | LOC: M RAD 09:33 | DX: N63 Unspecified lump in breast (principal) ==

== ENCOUNTER → 2016-11-21 | Outpatient (CLI) | payer MEDICARE ==
--- NOTE | 2016-11-21 13:27 | REP ---
ULTRASOUND RIGHT BREAST: Real-time sonographic evaluation of right breast performed and correlated with prior ultrasound of 08/16/2016. Patient had ecchymosis in the region of 2 o'clock of the right breast at the time of the prior study and a complex cystic area was seen at that location felt to most likely represent a small hematoma. It measured 1.5 x 1.3 x 0.9 cm. Real-time sonographic evaluation of the right breast performed between 2-4 o'clock. In the 3 o'clock region, the previously noted complex cyst has significantly decreased in size now measuring 3 mm in diameter, consistent with resolving hematoma. IMPRESSION: ACR 2 benign. Previously noted complex cystic nodule 3 o'clock right breast has significantly decreased in size now only measuring 3 mm in diameter. Findings are consistent with resolving hematoma. ACR 2 benign. Recommend followup bilateral mammogram at a routine screening interval due November 2016. BI-RADS/ACR category 2 mammogram. Benign finding(s). Routine annual screening mammography (for women over age 40). This mammogram was interpreted with the aid of an FDA-approved computer-aided detection system. A. Negative x-ray reports should not delay biopsy if a dominant or clinically suspicious mass is present. B. Four to eight percent of cancers are not identified by x-ray. C. Adenosis and dense breasts may obscure an underlying neoplasm. Signed by Brody Carrillo MD 11/22/2016 05:51 P
== END ==
LOC: M RAD 12:25
PROVIDERS: ATTEND Physician Assistant Surgical
DX: N63 Unspecified lump in breast (principal)

== ENCOUNTER → 2016-11-27 | Outpatient (CLI) | payer MEDICARE ==
[2016-11-27 09:12] LABS: INR 2.63
[2016-11-27 09:27] LABS: MEAN CORPUSCULAR HEMOGLOBIN 29.5 pg (27.0-33.0); MEAN CORPUSCULAR HGB CONC 32.9 g/dl (32.0-36.5); MEAN CORPUSCULAR VOLUME 89.6 fl (80.0-96.0); RED CELL DISTRIBUTION WIDTH 20.3 % (11.5-14.5); WHITE BLOOD COUNT 4.2 K/mm3 (4.0-10.0)
[2016-11-27 09:39] LABS: ALBUMIN 3.4 GM/DL (3.2-5.2); ALBUMIN/GLOBULIN RATIO 0.97 (1.00-1.93); ALKALINE PHOSPHATASE 66 U/L (45-117); ALT/SGPT 27 U/L (12-78); ANION GAP 4 MEQ/L (8-16); AST/SGOT 22 U/L (15-37); BILIRUBIN,TOTAL 0.5 MG/DL (0.2-1.0); BLOOD UREA NITROGEN 16 MG/DL (7-18); CALCIUM LEVEL 8.6 MG/DL (8.5-10.1); CARBON DIOXIDE LEVEL 35 MEQ/L (21-32); CHLORIDE LEVEL 102 MEQ/L (98-107); CREATININE FOR GFR 0.97 MG/DL (0.55-1.02); GLOMERULAR FILTRATION RATE > 60.0 (>51); GLUCOSE, FASTING 82 MG/DL (70-105); MAGNESIUM LEVEL 2.3 MG/DL (1.8-2.4); POTASSIUM SERUM 4.6 MEQ/L (3.5-5.1); SODIUM LEVEL 141 MEQ/L (136-145); TOTAL PROTEIN 6.9 GM/DL (6.4-8.2)
== END ==
LOC: M LAB 08:13
PROVIDERS: ATTEND Physician Assistant Surgical
DX: Z95.811 Presence of heart assist device (principal)

== ENCOUNTER → 2016-12-14 | Outpatient (CLI) | payer MEDICARE ==
[2016-12-14 08:47] LABS: MEAN CORPUSCULAR HEMOGLOBIN 31.2 pg (27.0-33.0); MEAN CORPUSCULAR HGB CONC 34.3 g/dl (32.0-36.5); RED CELL DISTRIBUTION WIDTH 19.4 % (11.5-14.5); WHITE BLOOD COUNT 6.1 K/mm3 (4.0-10.0)
[2016-12-14 08:51] LABS: INR 2.44
[2016-12-14 09:10] LABS: ALBUMIN 3.5 GM/DL (3.2-5.2); ALBUMIN/GLOBULIN RATIO 1.06 (1.00-1.93); ALKALINE PHOSPHATASE 72 U/L (45-117); ALT/SGPT 23 U/L (12-78); ANION GAP 7 MEQ/L (8-16); AST/SGOT 24 U/L (15-37); BILIRUBIN,TOTAL 0.4 MG/DL (0.2-1.0); BLOOD UREA NITROGEN 19 MG/DL (7-18); CALCIUM LEVEL 8.2 MG/DL (8.5-10.1); CARBON DIOXIDE LEVEL 32 MEQ/L (21-32); CHLORIDE LEVEL 103 MEQ/L (98-107); CREATININE FOR GFR 0.94 MG/DL (0.55-1.02); GLOMERULAR FILTRATION RATE > 60.0 (>51); GLUCOSE, FASTING 73 MG/DL (70-105); MAGNESIUM LEVEL 2.3 MG/DL (1.8-2.4); POTASSIUM SERUM 3.9 MEQ/L (3.5-5.1); SODIUM LEVEL 142 MEQ/L (136-145); TOTAL PROTEIN 6.8 GM/DL (6.4-8.2)
== END ==
LOC: M LAB 08:12
PROVIDERS: ATTEND Physician Assistant Surgical
DX: Z95.811 Presence of heart assist device (principal)

== ENCOUNTER → 2016-12-28 | Outpatient (CLI) | payer MEDICARE ==
[2016-12-28 10:42] LABS: INR 2.82
[2016-12-28 10:44] LABS: MEAN CORPUSCULAR HEMOGLOBIN 32.1 pg (27.0-33.0); MEAN CORPUSCULAR HGB CONC 33.9 g/dl (32.0-36.5); MEAN CORPUSCULAR VOLUME 94.6 fl (80.0-96.0); RED CELL DISTRIBUTION WIDTH 17.9 % (11.5-14.5); WHITE BLOOD COUNT 4.2 K/mm3 (4.0-10.0)
[2016-12-28 13:09] LABS: ALBUMIN 3.5 GM/DL (3.2-5.2); ALKALINE PHOSPHATASE 66 U/L (45-117); ALT/SGPT 29 U/L (12-78); ANION GAP 6 MEQ/L (8-16); AST/SGOT 32 U/L (15-37); BILIRUBIN,TOTAL 0.6 MG/DL (0.2-1.0); BLOOD UREA NITROGEN 19 MG/DL (7-18); CALCIUM LEVEL 8.8 MG/DL (8.5-10.1); CARBON DIOXIDE LEVEL 32 MEQ/L (21-32); CHLORIDE LEVEL 101 MEQ/L (98-107); CREATININE FOR GFR 0.86 MG/DL (0.55-1.02); GLOMERULAR FILTRATION RATE > 60.0 (>51); GLUCOSE, FASTING 78 MG/DL (70-105); MAGNESIUM LEVEL 2.2 MG/DL (1.8-2.4); POTASSIUM SERUM 4.1 MEQ/L (3.5-5.1); SODIUM LEVEL 139 MEQ/L (136-145)
== END ==
LOC: M LAB 09:10
PROVIDERS: ATTEND Physician Assistant Surgical
DX: Z95.811 Presence of heart assist device (principal)

== ENCOUNTER → 2017-01-24 | Outpatient (CLI) | payer MEDICARE ==
[2017-01-29 14:32] LABS: COTININE None Detected (.)
== END ==
LOC: M LAB 06:17
PROVIDERS: ATTEND Physician Assistant Surgical
DX: Z87.891 Personal history of nicotine dependence (principal); Z79.01 Long term (current) use of anticoagulants; Z79.82 Long term (current) use of aspirin; Z79.52 Long term (current) use of systemic steroids; Z79.899 Other long term (current) drug therapy

== ENCOUNTER → 2017-01-24 | Outpatient (CLI) | payer MEDICARE ==
[2017-01-24 06:38] LABS: MEAN CORPUSCULAR HEMOGLOBIN 33.5 pg (27.0-33.0); MEAN CORPUSCULAR VOLUME 98.5 fl (80.0-96.0); RED CELL DISTRIBUTION WIDTH 14.3 % (11.5-14.5); WHITE BLOOD COUNT 3.9 10^3/uL (4.0-10.0)
[2017-01-24 07:00] LABS: INR 2.71
[2017-01-24 07:40] LABS: ALBUMIN 3.5 GM/DL (3.2-5.2); ALBUMIN/GLOBULIN RATIO 0.97 (1.00-1.93); ALKALINE PHOSPHATASE 68 U/L (45-117); ALT/SGPT 25 U/L (12-78); ANION GAP 6 MEQ/L (8-16); AST/SGOT 22 U/L (15-37); BILIRUBIN,TOTAL 0.5 MG/DL (0.2-1.0); BLOOD UREA NITROGEN 19 MG/DL (7-18); CARBON DIOXIDE LEVEL 31 MEQ/L (21-32); CHLORIDE LEVEL 104 MEQ/L (98-107); CREATININE FOR GFR 0.87 MG/DL (0.55-1.02); GLOMERULAR FILTRATION RATE > 60.0 (>51); GLUCOSE, FASTING 82 MG/DL (70-105); MAGNESIUM LEVEL 2.1 MG/DL (1.8-2.4); POTASSIUM SERUM 3.8 MEQ/L (3.5-5.1); SODIUM LEVEL 141 MEQ/L (136-145); TOTAL PROTEIN 7.1 GM/DL (6.4-8.2)
== END ==
LOC: M LAB 06:14
PROVIDERS: ATTEND Physician Assistant Surgical
DX: I50.20 Unspecified systolic (congestive) heart failure (principal); I42.9 Cardiomyopathy, unspecified; K92.2 Gastrointestinal hemorrhage, unspecified; F32.9 Major depressive disorder, single episode, unspecified; Z68.42 Body mass index [BMI] 45.0-49.9, adult; R93.5 Abnormal findings on diagnostic imaging of other abdominal regions, including retroperitoneum; E03.9 Hypothyroidism, unspecified; Z72.0 Tobacco use; Z95.810 Presence of automatic (implantable) cardiac defibrillator; Z79.01 Long term (current) use of anticoagulants; Z79.82 Long term (current) use of aspirin; Z79.899 Other long term (current) drug therapy
CPT/HCPCS: 36415; 80053; 82375; 83615; 83735; 85027; 85610; G0480

== ENCOUNTER → 2017-01-29 | Outpatient (CLI) | payer MEDICARE ==
[~2017-01-29] MED LIST changes: +GASTROGRAFIN SOLUTION 30ML (Q9963) As Ordered ONE; +ISOVUE-370 76% 100ML VIAL (Q9967) As Ordered ONE
--- NOTE | 2017-01-29 19:36 | REP ---
CT of the abdomen pelvis without and with IV contrast and with bowel contrast: Comparison are02/18/2016 and 09/25/2015. The visualized lung durand are unremarkable. Ventricular assist pump is again noted spanning the right and left cardiac ventricles. The hepatic parenchyma is homogeneous. There are surgical clips in the gallbladder fossa. The pancreas, is unremarkable. The spleen is unremarkable. Small splenules are again identified at the inferior tip of spleen. The adrenals are unremarkable. There is a low density lesion in the lateral wall of the left kidney measuring 16 mm, seen to better advantage on the current study with IV contrast with the CT density of 33 HU, nonspecific. It is unchanged from the contrast enhanced study of 09/25/2015. Continued follow-up is recommended. There is a tiny 2 ml nonobstructive calculus in the lower pole of the left kidney, unchanged. The abdominal aorta is unremarkable. There is minimal distension of proximal small bowel loops. There is no distension of distal small bowel loops. This may be artifact secondary to the ingested oral contrast in the proximal small bowel loops. There is no contrast in the distal small bowel loops or colon at the time of scanning. The mesentery is unremarkable. There are a few normal size mesenteric nodes identified incidentally. Pelvis: There is a lipoma in the cecum measuring 3 cm in greatest length. I suspect this was also present previously. The appendix is unremarkable except for multiple small appendicoliths. This is unchanged. The patient indicates she has had a hysterectomy. There is a soft tissue density in the location of the uterus, decreased in size from the prior studies, possibly indication of a partial hysterectomy. There are no adnexal masses otherwise. There is no pelvic adenopathy or ascites. The bladder is unremarkable. 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 Cholecystectomy. Study is at the inferior tip of spleen. Nonobstructive left renal calculus. Nonspecific low density lesion in the lateral wall of the left kidney. Follow-up is recommended. Partial hysterectomy. Appendicoliths. Appendix is otherwise unremarkable. Cardiac ventricular assist pump. Signed by Brody Hua MD 01/29/2017 07:27 P
== END ==
LOC: M RAD 14:28
PROVIDERS: ATTEND Physician Assistant
DX: R93.5 Abnormal findings on diagnostic imaging of other abdominal regions, including retroperitoneum (principal)
CPT/HCPCS: 74178; Q9963; Q9967

== ENCOUNTER → 2017-02-20 | Outpatient (CLI) | payer MEDICARE ==
[~2017-02-20] MED LIST changes: -GASTROGRAFIN SOLUTION 30ML (Q9963) As Ordered ONE; -ISOVUE-370 76% 100ML VIAL (Q9967) As Ordered ONE
--- NOTE | 2017-02-20 15:16 | REP ---
DIAGNOSTIC MAMMOGRAM, RIGHT BREAST WITH RIGHT BREAST ULTRASOUND: Diagnostic mammogram of the right breast is performed for a retroareolar palpable abnormality. Comparison is made with a prior mammogram 08/16/2016 as well as other prior exams. Retroareolar fibroglandular tissue is nonspecific. Oval density containing a metallic clip has been previously biopsied with benign results, located in the outer right breast. The patient has a small bruise at the 12 -o'clock position of the right breast and that area is marked on the skin. On the mammogram, there is an ill-defined opacity at this location consistent with a small hematoma. There is no mammographic evidence of mass or clustered microcalcifications. Real-time sonographic evaluation of the right breast performed in the retroareolar region at the site of the reported palpable abnormality. There is a fibroglandular tissue present without a discrete cystic or solid mass. IMPRESSION: ACR 2 benign. There is no mass or clustered microcalcifications by mammography. At the site of a small hematoma at the 12 -o'clock position of the right breast, a small ill-defined opacity is seen in the breast consistent with a small hematoma. Otherwise, there is no change since the prior study 08/16/2016 as well as other prior exams. There are no clustered microcalcifications. Ultrasound shows no mass in the retroareolar region at the site of the reported palpable abnormality. A negative mammogram and ultrasound should not deter biopsy if there is a clinically suspicious palpable mass present. Clinical correlation and followup is recommended. Recommend followup bilateral mammogram in July 2017. This mammogram was interpreted with the aid of an FDA-approved computer-aided detection system. The patient states she/he had a clinical breast exam in January 2017. Patient letter M2. Signed by Brody Carrillo MD 02/20/2017 07:46 P
== END ==
LOC: M RAD 13:03
PROVIDERS: ATTEND Specialist
DX: N63.10 Unspecified lump in the right breast, unspecified quadrant (principal); R92.8 Other abnormal and inconclusive findings on diagnostic imaging of breast; Z95.811 Presence of heart assist device
CPT/HCPCS: 36415; 76642; 80053; 83615; 83735; 85027; 85610; G0206

== ENCOUNTER → 2017-02-20 | Outpatient (CLI) | payer MEDICARE ==
[2017-02-20 13:23] LABS: MEAN CORPUSCULAR HEMOGLOBIN 34.4 pg (27.0-33.0); MEAN CORPUSCULAR HGB CONC 33.8 g/dl (32.0-36.5); MEAN CORPUSCULAR VOLUME 101.5 fl (80.0-96.0); PLATELET COUNT, AUTOMATED 245 10^3/uL (150-450); RED CELL DISTRIBUTION WIDTH 13.2 % (11.5-14.5)
[2017-02-20 13:36] LABS: INR 2.31
[2017-02-20 13:55] LABS: ALBUMIN 3.5 GM/DL (3.2-5.2); ALBUMIN/GLOBULIN RATIO 1.03 (1.00-1.93); ALKALINE PHOSPHATASE 65 U/L (45-117); ALT/SGPT 24 U/L (12-78); ANION GAP 5 MEQ/L (8-16); AST/SGOT 22 U/L (15-37); BILIRUBIN,TOTAL 0.7 MG/DL (0.2-1.0); BLOOD UREA NITROGEN 11 MG/DL (7-18); CALCIUM LEVEL 8.3 MG/DL (8.5-10.1); CARBON DIOXIDE LEVEL 33 MEQ/L (21-32); CHLORIDE LEVEL 100 MEQ/L (98-107); CREATININE FOR GFR 0.85 MG/DL (0.55-1.02); GLOMERULAR FILTRATION RATE > 60.0 (>51); GLUCOSE, FASTING 110 MG/DL (70-105); MAGNESIUM LEVEL 1.9 MG/DL (1.8-2.4); POTASSIUM SERUM 3.5 MEQ/L (3.5-5.1); SODIUM LEVEL 138 MEQ/L (136-145); TOTAL PROTEIN 6.9 GM/DL (6.4-8.2)
== END ==
LOC: M LAB 12:41
PROVIDERS: ATTEND Physician Assistant Surgical
DX: Z95.811 Presence of heart assist device (principal)

== ENCOUNTER → 2017-03-13 | Outpatient (CLI) | payer MEDICARE ==
[2017-03-13 08:02] LABS: MEAN CORPUSCULAR HEMOGLOBIN 34.4 pg (27.0-33.0); PLATELET COUNT, AUTOMATED 257 10^3/uL (150-450); RED CELL DISTRIBUTION WIDTH 12.5 % (11.5-14.5); WHITE BLOOD COUNT 4.1 10^3/uL (4.0-10.0)
[2017-03-13 08:24] LABS: ALBUMIN 3.3 GM/DL (3.2-5.2); ALBUMIN/GLOBULIN RATIO 1.03 (1.00-1.93); ALKALINE PHOSPHATASE 52 U/L (45-117); ALT/SGPT 51 U/L (12-78); ANION GAP 5 MEQ/L (8-16); AST/SGOT 46 U/L (7-37); BILIRUBIN,TOTAL 0.6 MG/DL (0.2-1.0); BLOOD UREA NITROGEN 10 MG/DL (7-18); CALCIUM LEVEL 8.1 MG/DL (8.5-10.1); CARBON DIOXIDE LEVEL 34 MEQ/L (21-32); CHLORIDE LEVEL 100 MEQ/L (98-107); GLOMERULAR FILTRATION RATE > 60.0 (>51); GLUCOSE, FASTING 85 MG/DL (70-105); INR 0.99; MAGNESIUM LEVEL 1.9 MG/DL (1.8-2.4); POTASSIUM SERUM 3.3 MEQ/L (3.5-5.1); SODIUM LEVEL 139 MEQ/L (136-145); TOTAL PROTEIN 6.5 GM/DL (6.4-8.2)
== END ==
LOC: M LAB 07:26
PROVIDERS: ATTEND Physician Assistant Surgical
DX: Z95.811 Presence of heart assist device (principal)

== ENCOUNTER → 2017-03-22 | Outpatient (CLI) | payer MEDICARE ==
[~2017-03-22] MED LIST changes: +COUM1TAB14 PO; +COUM1TAB17 PO; +GABA-282; +LOVE0.4I2 SC; +ONDA4TAB6; +OXYC-517
[2017-03-22 07:17] LABS: MEAN CORPUSCULAR HEMOGLOBIN 34.5 pg (27.0-33.0); MEAN CORPUSCULAR HGB CONC 33.8 g/dl (32.0-36.5); MEAN CORPUSCULAR VOLUME 101.8 fl (80.0-96.0); PLATELET COUNT, AUTOMATED 266 10^3/uL (150-450); RED CELL DISTRIBUTION WIDTH 13.5 % (11.5-14.5); WHITE BLOOD COUNT 4.3 10^3/uL (4.0-10.0)
[2017-03-22 07:29] LABS: INR 1.01
[2017-03-22 07:41] LABS: ALBUMIN 3.2 GM/DL (3.2-5.2); ALKALINE PHOSPHATASE 46 U/L (45-117); ALT/SGPT 29 U/L (12-78); ANION GAP 6 MEQ/L (8-16); AST/SGOT 22 U/L (7-37); BILIRUBIN,TOTAL 0.8 MG/DL (0.2-1.0); BLOOD UREA NITROGEN 8 MG/DL (7-18); CALCIUM LEVEL 8.1 MG/DL (8.5-10.1); CARBON DIOXIDE LEVEL 30 MEQ/L (21-32); CHLORIDE LEVEL 105 MEQ/L (98-107); CREATININE FOR GFR 0.61 MG/DL (0.55-1.02); GLOMERULAR FILTRATION RATE > 60.0 (>51); GLUCOSE, FASTING 77 MG/DL (70-105); MAGNESIUM LEVEL 1.8 MG/DL (1.8-2.4); POTASSIUM SERUM 4.1 MEQ/L (3.5-5.1); SODIUM LEVEL 141 MEQ/L (136-145); TOTAL PROTEIN 6.1 GM/DL (6.4-8.2)
== END ==
LOC: M LAB 06:37
PROVIDERS: ATTEND Physician Assistant Surgical
DX: Z95.811 Presence of heart assist device (principal)

== ENCOUNTER → 2017-03-26 | Outpatient (CLI) | payer MEDICARE ==
[2017-03-26 11:41] LABS: MEAN CORPUSCULAR HEMOGLOBIN 34.8 pg (27.0-33.0); MEAN CORPUSCULAR HGB CONC 34.1 g/dl (32.0-36.5); MEAN CORPUSCULAR VOLUME 102.1 fl (80.0-96.0); PLATELET COUNT, AUTOMATED 269 10^3/uL (150-450); RED CELL DISTRIBUTION WIDTH 14.4 % (11.5-14.5); WHITE BLOOD COUNT 4.9 10^3/uL (4.0-10.0)
[2017-03-26 11:51] LABS: INR 1.07
[2017-03-26 12:23] LABS: ALBUMIN 3.3 GM/DL (3.2-5.2); ALKALINE PHOSPHATASE 45 U/L (45-117); ALT/SGPT 32 U/L (12-78); ANION GAP 7 MEQ/L (8-16); AST/SGOT 37 U/L (7-37); BILIRUBIN,TOTAL 0.6 MG/DL (0.2-1.0); BLOOD UREA NITROGEN 8 MG/DL (7-18); CALCIUM LEVEL 8.5 MG/DL (8.5-10.1); CARBON DIOXIDE LEVEL 29 MEQ/L (21-32); CHLORIDE LEVEL 105 MEQ/L (98-107); CREATININE FOR GFR 0.55 MG/DL (0.55-1.02); GLOMERULAR FILTRATION RATE > 60.0 (>51); GLUCOSE, FASTING 78 MG/DL (70-105); MAGNESIUM LEVEL 1.9 MG/DL (1.8-2.4); SODIUM LEVEL 141 MEQ/L (136-145); TOTAL PROTEIN 6.6 GM/DL (6.4-8.2)
== END ==
LOC: M LAB 11:10
PROVIDERS: ATTEND Physician Assistant Surgical
DX: Z79.01 Long term (current) use of anticoagulants (principal); Z95.811 Presence of heart assist device

== ENCOUNTER 2017-03-29 00:37 | Emergency (ER) | payer MEDICARE ==
[~2017-03-29] VITALS: Ht 170.2 cm; Wt 124.7 kg
[~2017-03-29 00:37] MED LIST changes: -COUM1TAB14 PO; -COUM1TAB17 PO; -GABA-282; -LOVE0.4I2 SC; -ONDA4TAB6; -OXYC-517
[2017-03-29] MEDS ORDERED: COUM1TAB14 PO (01:04)
[2017-03-29] MEDS ORDERED: ONDA4TAB6 (01:04)
[2017-03-29] MEDS ORDERED: GABA-282 (01:04)
[2017-03-29] MEDS ORDERED: OXYC-517 (01:04)
[2017-03-29] MEDS ORDERED: LOVE0.4I2 SC (01:04)
[2017-03-29] MEDS ORDERED: COUM1TAB17 PO (01:04)
[2017-03-29 01:42] LABS: BASO % 0.8 % (0.0-1.0); EOS # 0.1 10^3/uL (0.0-0.50); EOS % 2.3 % (0.0-3.0); IMMATURE GRANULOCYTE % 0.3 % (0-0); LYMPH # 0.9 10^3/uL (1.5-4.5); MEAN CORPUSCULAR HEMOGLOBIN 34.6 pg (27.0-33.0); MEAN CORPUSCULAR HGB CONC 34.2 g/dl (32.0-36.5); MEAN CORPUSCULAR VOLUME 101.1 fl (80.0-96.0); MONO # 0.5 10^3/uL (0.0-0.8); MONO % 12.4 % (0.0-5.0); NEUTROPHILS # 2.4 10^3/uL (1.8-7.7); NEUTROPHILS % 62.2 % (36.0-66.0); PLATELET COUNT, AUTOMATED 285 10^3/uL (150-450); RED CELL DISTRIBUTION WIDTH 14.5 % (11.5-14.5); WHITE BLOOD COUNT 3.9 10^3/uL (4.0-10.0)
[2017-03-29 01:56] LABS: ANION GAP 7 MEQ/L (8-16); BLOOD UREA NITROGEN 10 MG/DL (7-18); CALCIUM LEVEL 8.9 MG/DL (8.5-10.1); CARBON DIOXIDE LEVEL 31 MEQ/L (21-32); CHLORIDE LEVEL 101 MEQ/L (98-107); CREATININE FOR GFR 0.58 MG/DL (0.55-1.02); GLOMERULAR FILTRATION RATE > 60.0 (>51); GLUCOSE, FASTING 79 MG/DL (70-105); MAGNESIUM LEVEL 1.8 MG/DL (1.8-2.4); POTASSIUM SERUM 3.5 MEQ/L (3.5-5.1); SODIUM LEVEL 139 MEQ/L (136-145)
[2017-03-29 05:43] VITALS: BP 121/90
== END 2017-03-29 06:36 | disposition home or self-care (01) ==
LOC: M ED 00:37
DX: T82.198A Other mechanical complication of other cardiac electronic device, initial encounter (principal); Y71.2 Prosthetic and other implants, materials and accessory cardiovascular devices associated with adverse incidents; I42.0 Dilated cardiomyopathy; Z79.899 Other long term (current) drug therapy; Z79.01 Long term (current) use of anticoagulants; Z88.5 Allergy status to narcotic agent; Z88.2 Allergy status to sulfonamides

== ENCOUNTER → 2017-04-01 | Outpatient (CLI) | payer MEDICARE ==
[~2017-04-01] MED LIST changes: +COUM1TAB14 PO; +COUM1TAB17 PO; +GABA-282; +LOVE0.4I2 SC; +ONDA4TAB6; +OXYC-517
[2017-04-01 07:43] LABS: ALBUMIN 3.7 GM/DL (3.2-5.2); ANION GAP 8 MEQ/L (8-16); BLOOD UREA NITROGEN 9 MG/DL (7-18); CALCIUM LEVEL 8.6 MG/DL (8.5-10.1); CARBON DIOXIDE LEVEL 27 MEQ/L (21-32); CHLORIDE LEVEL 104 MEQ/L (98-107); CREATININE FOR GFR 0.61 MG/DL (0.55-1.02); GLOMERULAR FILTRATION RATE > 60.0 (>51); GLUCOSE, FASTING 88 MG/DL (70-105); POTASSIUM SERUM 4.3 MEQ/L (3.5-5.1); SODIUM LEVEL 139 MEQ/L (136-145)
== END ==
LOC: M LAB 06:42
PROVIDERS: ATTEND Internal Medicine Cardiovascular Disease
DX: I42.9 Cardiomyopathy, unspecified (principal)

== ENCOUNTER → 2017-04-01 | Outpatient (CLI) | payer MEDICARE ==
[2017-04-01 07:31] LABS: MEAN CORPUSCULAR HGB CONC 33.2 g/dl (32.0-36.5); MEAN CORPUSCULAR VOLUME 102.6 fl (80.0-96.0); PLATELET COUNT, AUTOMATED 306 10^3/uL (150-450); RED CELL DISTRIBUTION WIDTH 14.6 % (11.5-14.5); WHITE BLOOD COUNT 4.4 10^3/uL (4.0-10.0)
[2017-04-01 07:43] LABS: INR 1.28
[2017-04-01 07:47] LABS: ALBUMIN 3.7 GM/DL (3.2-5.2); ALBUMIN/GLOBULIN RATIO 0.97 (1.00-1.93); ALKALINE PHOSPHATASE 57 U/L (45-117); ALT/SGPT 36 U/L (12-78); ANION GAP 9 MEQ/L (8-16); AST/SGOT 30 U/L (7-37); BILIRUBIN,TOTAL 0.7 MG/DL (0.2-1.0); BLOOD UREA NITROGEN 9 MG/DL (7-18); CALCIUM LEVEL 8.4 MG/DL (8.5-10.1); CARBON DIOXIDE LEVEL 26 MEQ/L (21-32); CHLORIDE LEVEL 103 MEQ/L (98-107); CREATININE FOR GFR 0.64 MG/DL (0.55-1.02); GLOMERULAR FILTRATION RATE > 60.0 (>51); GLUCOSE, FASTING 88 MG/DL (70-105); POTASSIUM SERUM 4.3 MEQ/L (3.5-5.1); SODIUM LEVEL 138 MEQ/L (136-145); TOTAL PROTEIN 7.5 GM/DL (6.4-8.2)
== END ==
LOC: M LAB 06:38
PROVIDERS: ATTEND Physician Assistant Surgical
DX: I42.9 Cardiomyopathy, unspecified (principal); Z95.811 Presence of heart assist device; Z79.01 Long term (current) use of anticoagulants; Z79.899 Other long term (current) drug therapy

== ENCOUNTER → 2017-04-08 | Outpatient (CLI) | payer MEDICARE ==
[2017-04-08 06:57] LABS: MEAN CORPUSCULAR HEMOGLOBIN 34.1 pg (27.0-33.0); MEAN CORPUSCULAR HGB CONC 33.4 g/dl (32.0-36.5); MEAN CORPUSCULAR VOLUME 102.1 fl (80.0-96.0); PLATELET COUNT, AUTOMATED 261 10^3/uL (150-450); RED CELL DISTRIBUTION WIDTH 14.5 % (11.5-14.5); WHITE BLOOD COUNT 3.9 10^3/uL (4.0-10.0)
[2017-04-08 07:19] LABS: ALBUMIN 3.7 GM/DL (3.2-5.2); ALBUMIN/GLOBULIN RATIO 1.03 (1.00-1.93); ALKALINE PHOSPHATASE 60 U/L (45-117); ALT/SGPT 45 U/L (12-78); ANION GAP 6 MEQ/L (8-16); AST/SGOT 36 U/L (7-37); BILIRUBIN,TOTAL 0.7 MG/DL (0.2-1.0); BLOOD UREA NITROGEN 7 MG/DL (7-18); CALCIUM LEVEL 8.5 MG/DL (8.5-10.1); CARBON DIOXIDE LEVEL 29 MEQ/L (21-32); CHLORIDE LEVEL 103 MEQ/L (98-107); CREATININE FOR GFR 0.65 MG/DL (0.55-1.02); GLOMERULAR FILTRATION RATE > 60.0 (>51); GLUCOSE, FASTING 78 MG/DL (70-105); INR 1.87; POTASSIUM SERUM 3.9 MEQ/L (3.5-5.1); SODIUM LEVEL 138 MEQ/L (136-145); TOTAL PROTEIN 7.3 GM/DL (6.4-8.2)
== END ==
LOC: M LAB 06:16
PROVIDERS: ATTEND Physician Assistant Surgical
DX: Z95.811 Presence of heart assist device (principal)

== ENCOUNTER → 2017-04-16 | Outpatient (CLI) | payer MEDICARE ==
[2017-04-16 07:41] LABS: MEAN CORPUSCULAR HEMOGLOBIN 34.5 pg (27.0-33.0); MEAN CORPUSCULAR HGB CONC 34.1 g/dl (32.0-36.5); MEAN CORPUSCULAR VOLUME 101.3 fl (80.0-96.0); PLATELET COUNT, AUTOMATED 254 10^3/uL (150-450); RED CELL DISTRIBUTION WIDTH 14.2 % (11.5-14.5); WHITE BLOOD COUNT 3.3 10^3/uL (4.0-10.0)
[2017-04-16 07:47] LABS: INR 2.35
[2017-04-16 07:58] LABS: ALBUMIN 3.5 GM/DL (3.2-5.2); ALBUMIN/GLOBULIN RATIO 0.97 (1.00-1.93); ALKALINE PHOSPHATASE 61 U/L (45-117); ALT/SGPT 53 U/L (12-78); ANION GAP 10 MEQ/L (8-16); AST/SGOT 41 U/L (7-37); BILIRUBIN,TOTAL 0.6 MG/DL (0.2-1.0); BLOOD UREA NITROGEN 9 MG/DL (7-18); CALCIUM LEVEL 8.2 MG/DL (8.5-10.1); CARBON DIOXIDE LEVEL 27 MEQ/L (21-32); CHLORIDE LEVEL 103 MEQ/L (98-107); CREATININE FOR GFR 0.65 MG/DL (0.55-1.02); GLOMERULAR FILTRATION RATE > 60.0 (>51); GLUCOSE, FASTING 80 MG/DL (70-105); SODIUM LEVEL 140 MEQ/L (136-145); TOTAL PROTEIN 7.1 GM/DL (6.4-8.2)
== END ==
LOC: M LAB 06:46
PROVIDERS: ATTEND Physician Assistant Surgical
DX: Z95.811 Presence of heart assist device (principal)

== ENCOUNTER → 2017-04-23 | Outpatient (CLI) | payer MEDICARE ==
[2017-04-23 09:56] LABS: MEAN CORPUSCULAR HEMOGLOBIN 34.3 pg (27.0-33.0); MEAN CORPUSCULAR HGB CONC 34.2 g/dl (32.0-36.5); MEAN CORPUSCULAR VOLUME 100.2 fl (80.0-96.0); PLATELET COUNT, AUTOMATED 238 10^3/uL (150-450); RED CELL DISTRIBUTION WIDTH 13.9 % (11.5-14.5); WHITE BLOOD COUNT 3.7 10^3/uL (4.0-10.0)
[2017-04-23 10:08] LABS: INR 2.12
[2017-04-23 10:21] LABS: ALBUMIN 3.7 GM/DL (3.2-5.2); ALBUMIN/GLOBULIN RATIO 1.06 (1.00-1.93); ALKALINE PHOSPHATASE 62 U/L (45-117); ALT/SGPT 49 U/L (12-78); ANION GAP 5 MEQ/L (8-16); AST/SGOT 38 U/L (7-37); BILIRUBIN,TOTAL 0.6 MG/DL (0.2-1.0); BLOOD UREA NITROGEN 10 MG/DL (7-18); CALCIUM LEVEL 8.3 MG/DL (8.5-10.1); CARBON DIOXIDE LEVEL 31 MEQ/L (21-32); CHLORIDE LEVEL 107 MEQ/L (98-107); CREATININE FOR GFR 0.74 MG/DL (0.55-1.02); GLOMERULAR FILTRATION RATE > 60.0 (>51); GLUCOSE, FASTING 121 MG/DL (70-105); POTASSIUM SERUM 4.1 MEQ/L (3.5-5.1); SODIUM LEVEL 143 MEQ/L (136-145); TOTAL PROTEIN 7.2 GM/DL (6.4-8.2)
== END ==
LOC: M LAB 09:29
PROVIDERS: ATTEND Physician Assistant Surgical
DX: Z95.811 Presence of heart assist device (principal)

== ENCOUNTER → 2017-05-06 | Outpatient (CLI) | payer MEDICARE ==
[2017-05-06 12:07] LABS: HEMATOCRIT 40.8 % (36.0-47.0); MEAN CORPUSCULAR HEMOGLOBIN 34.1 pg (27.0-33.0); MEAN CORPUSCULAR HGB CONC 34.3 g/dl (32.0-36.5); MEAN CORPUSCULAR VOLUME 99.5 fl (80.0-96.0); PLATELET COUNT, AUTOMATED 259 10^3/uL (150-450); WHITE BLOOD COUNT 6.1 10^3/uL (4.0-10.0)
[2017-05-06 12:24] LABS: INR 2.65; PROTHROMBIN TIME 29.4 SECONDS (12.4-14.5)
[2017-05-06 12:47] LABS: ALBUMIN 3.6 GM/DL (3.2-5.2); ALBUMIN/GLOBULIN RATIO 1.03 (1.00-1.93); ALKALINE PHOSPHATASE 63 U/L (45-117); ALT/SGPT 34 U/L (12-78); ANION GAP 5 MEQ/L (8-16); AST/SGOT 32 U/L (7-37); BILIRUBIN,TOTAL 0.7 MG/DL (0.2-1.0); BLOOD UREA NITROGEN 12 MG/DL (7-18); CALCIUM LEVEL 8.4 MG/DL (8.5-10.1); CARBON DIOXIDE LEVEL 31 MEQ/L (21-32); CHLORIDE LEVEL 103 MEQ/L (98-107); CREATININE FOR GFR 0.61 MG/DL (0.55-1.02); GLOMERULAR FILTRATION RATE > 60.0 (>51); GLUCOSE, FASTING 87 MG/DL (70-105); LDH LACTATE DEHYDROGENASE 256 U/L (84-246); MAGNESIUM LEVEL 1.9 MG/DL (1.8-2.4); POTASSIUM SERUM 4.2 MEQ/L (3.5-5.1); SODIUM LEVEL 139 MEQ/L (136-145); TOTAL PROTEIN 7.1 GM/DL (6.4-8.2)
== END ==
LOC: M LAB 11:28
DX: Z95.811 Presence of heart assist device (principal)
CPT/HCPCS: 83615

== ENCOUNTER → 2017-05-21 | Outpatient (CLI) | payer MEDICARE ==
[2017-05-21 10:21] LABS: HEMATOCRIT 40.8 % (36.0-47.0); HEMOGLOBIN 13.7 g/dl (12.0-16.0); MEAN CORPUSCULAR HEMOGLOBIN 34.1 pg (27.0-33.0); MEAN CORPUSCULAR HGB CONC 33.6 g/dl (32.0-36.5); MEAN CORPUSCULAR VOLUME 101.5 fl (80.0-96.0); PLATELET COUNT, AUTOMATED 245 10^3/uL (150-450); RED BLOOD COUNT 4.02 10^6/uL (4.00-5.40); RED CELL DISTRIBUTION WIDTH 13.2 % (11.5-14.5); WHITE BLOOD COUNT 4.2 10^3/uL (4.0-10.0)
[2017-05-21 10:34] LABS: INR 2.98; PROTHROMBIN TIME 32.3 SECONDS (12.4-14.5)
[2017-05-21 10:38] LABS: ALBUMIN 3.4 GM/DL (3.2-5.2); ALBUMIN/GLOBULIN RATIO 0.92 (1.00-1.93); ALKALINE PHOSPHATASE 60 U/L (45-117); ALT/SGPT 31 U/L (12-78); ANION GAP 4 MEQ/L (8-16); AST/SGOT 28 U/L (7-37); BILIRUBIN,TOTAL 0.5 MG/DL (0.2-1.0); BLOOD UREA NITROGEN 12 MG/DL (7-18); CALCIUM LEVEL 8.6 MG/DL (8.5-10.1); CARBON DIOXIDE LEVEL 33 MEQ/L (21-32); CHLORIDE LEVEL 106 MEQ/L (98-107); CREATININE FOR GFR 0.69 MG/DL (0.55-1.02); GLOMERULAR FILTRATION RATE > 60.0 (>51); GLUCOSE, FASTING 91 MG/DL (70-100); LDH LACTATE DEHYDROGENASE 258 U/L (84-246); MAGNESIUM LEVEL 1.9 MG/DL (1.8-2.4); POTASSIUM SERUM 4.4 MEQ/L (3.5-5.1); SODIUM LEVEL 143 MEQ/L (136-145); TOTAL PROTEIN 7.1 GM/DL (6.4-8.2)
== END ==
LOC: M LAB 09:53
DX: Z95.811 Presence of heart assist device (principal)
CPT/HCPCS: 83615

== ENCOUNTER → 2017-06-04 | Outpatient (CLI) | payer MEDICARE ==
[2017-06-04 11:13] LABS: HEMATOCRIT 40.4 % (36.0-47.0); HEMOGLOBIN 13.6 g/dl (12.0-16.0); MEAN CORPUSCULAR HEMOGLOBIN 34.3 pg (27.0-33.0); MEAN CORPUSCULAR HGB CONC 33.7 g/dl (32.0-36.5); MEAN CORPUSCULAR VOLUME 101.8 fl (80.0-96.0); PLATELET COUNT, AUTOMATED 223 10^3/uL (150-450); RED BLOOD COUNT 3.97 10^6/uL (4.00-5.40); RED CELL DISTRIBUTION WIDTH 13.3 % (11.5-14.5); WHITE BLOOD COUNT 3.4 10^3/uL (4.0-10.0)
[2017-06-04 11:22] LABS: PROTHROMBIN TIME 33.4 SECONDS (12.4-14.5)
[2017-06-04 12:02] LABS: ALBUMIN 3.5 GM/DL (3.2-5.2); ALBUMIN/GLOBULIN RATIO 0.97 (1.00-1.93); ALKALINE PHOSPHATASE 62 U/L (45-117); ALT/SGPT 20 U/L (12-78); ANION GAP 7 MEQ/L (8-16); AST/SGOT 25 U/L (7-37); BILIRUBIN,TOTAL 0.5 MG/DL (0.2-1.0); BLOOD UREA NITROGEN 13 MG/DL (7-18); CALCIUM LEVEL 8.6 MG/DL (8.5-10.1); CARBON DIOXIDE LEVEL 31 MEQ/L (21-32); CHLORIDE LEVEL 102 MEQ/L (98-107); CREATININE FOR GFR 0.67 MG/DL (0.55-1.30); GLOMERULAR FILTRATION RATE > 60.0 (>51); GLUCOSE, FASTING 100 MG/DL (70-100); LDH LACTATE DEHYDROGENASE 245 U/L (84-246); MAGNESIUM LEVEL 1.9 MG/DL (1.8-2.4); SODIUM LEVEL 140 MEQ/L (136-145); TOTAL PROTEIN 7.1 GM/DL (6.4-8.2)
== END ==
LOC: M LAB 10:37
DX: Z95.811 Presence of heart assist device (principal)
CPT/HCPCS: 83615

== ENCOUNTER 2017-06-09 20:09 | Emergency (ER) | payer MEDICARE ==
[2017-06-09] MEDS: dexameTHASONE 20 MG/5 ML VIAL (J1100) IV (21:28)
[2017-06-09 21:31] LABS: ANION GAP 7 MEQ/L (8-16); BLOOD UREA NITROGEN 14 MG/DL (7-18); CALCIUM LEVEL 8.3 MG/DL (8.5-10.1); CARBON DIOXIDE LEVEL 27 MEQ/L (21-32); CHLORIDE LEVEL 105 MEQ/L (98-107); CPK CREATINE PHOSPHOKINASE 53 U/L (26-192); CREATININE FOR GFR 0.61 MG/DL (0.55-1.30); GLOMERULAR FILTRATION RATE > 60.0 (>51); GLUCOSE, FASTING 88 MG/DL (70-100); SODIUM LEVEL 139 MEQ/L (136-145); TROPONIN I < 0.02 NG/ML (< 0.10)
[2017-06-09 21:32] LABS: MB/CK RELATIVE INDEX 1.88 (< OR =4)
[2017-06-09] MEDS: IPRATROPIUM 0.5MG/ALBUTEROL 2.5MG INH SOL UD 3ML (DUONEB)(J7620) NEB ×3 (21:32→21:33)
[2017-06-09 22:10] LABS: BASO % 0.6 % (0.0-1.0); EOS # 0.1 10^3/uL (0.0-0.50); EOS % 1.9 % (0.0-3.0); HEMOGLOBIN 14.3 g/dl (12.0-16.0); IMMATURE GRANULOCYTE % 0.2 % (0-3.0); LYMPH # 1.2 10^3/uL (1.5-4.5); LYMPH % 22.7 % (24.0-44.0); MEAN CORPUSCULAR HEMOGLOBIN 34.3 pg (27.0-33.0); MEAN CORPUSCULAR HGB CONC 34.9 g/dl (32.0-36.5); MEAN CORPUSCULAR VOLUME 98.3 fl (80.0-96.0); MONO # 0.6 10^3/uL (0.0-0.8); NEUTROPHILS # 3.3 10^3/uL (1.8-7.7); NEUTROPHILS % 63.6 % (36.0-66.0); PLATELET COUNT, AUTOMATED 273 10^3/uL (150-450); RED BLOOD COUNT 4.17 10^6/uL (4.00-5.40); RED CELL DISTRIBUTION WIDTH 13.2 % (11.5-14.5); WHITE BLOOD COUNT 5.2 10^3/uL (4.0-10.0)
[2017-06-09 22:13] LABS: INFLUENZA A AMPLIFICATION NEGATIVE (NEGATIVE); INFLUENZA B AMPLIFICATION NEGATIVE (NEGATIVE); RSV AMPLIFICATION NEGATIVE (NEGATIVE)
== END 2017-06-09 23:22 | disposition home or self-care (01) ==
LOC: M ED 20:09
DX: J44.0 Chronic obstructive pulmonary disease with (acute) lower respiratory infection (principal); I10 Essential (primary) hypertension; E03.9 Hypothyroidism, unspecified; F33.9 Major depressive disorder, recurrent, unspecified; I42.9 Cardiomyopathy, unspecified; M54.5 Low back pain; Z95.0 Presence of cardiac pacemaker; Z98.84 Bariatric surgery status; Z79.899 Other long term (current) drug therapy; Z79.890 Hormone replacement therapy; Z79.01 Long term (current) use of anticoagulants; Z88.2 Allergy status to sulfonamides; Z88.5 Allergy status to narcotic agent; F17.210 Nicotine dependence, cigarettes, uncomplicated
CPT/HCPCS: J1100

== ENCOUNTER 2017-06-14 10:27 | Emergency (ER) | payer MEDICARE ==
[2017-06-14] MEDS: IPRATROPIUM 0.5MG/ALBUTEROL 2.5MG INH SOL UD 3ML (DUONEB)(J7620) NEB ×6 (11:23→12:28)
[2017-06-14] MEDS: methylPREDNISolone INJ 125 MG/2 ML VIAL (J2930) IV ×2 (11:36)
[2017-06-14 11:51] LABS: BASO % 0.1 % (0.0-1.0); EOS % 0.1 % (0.0-3.0); HEMOGLOBIN 15.1 g/dl (12.0-16.0); IMMATURE GRANULOCYTE % 0.1 % (0-3.0); LYMPH # 0.7 10^3/uL (1.5-4.5); LYMPH % 8.8 % (24.0-44.0); MEAN CORPUSCULAR HEMOGLOBIN 34.4 pg (27.0-33.0); MEAN CORPUSCULAR HGB CONC 35.1 g/dl (32.0-36.5); MEAN CORPUSCULAR VOLUME 97.9 fl (80.0-96.0); MONO # 0.2 10^3/uL (0.0-0.8); MONO % 2.9 % (0.0-5.0); NEUTROPHILS # 6.6 10^3/uL (1.8-7.7); PLATELET COUNT, AUTOMATED 266 10^3/uL (150-450); RED BLOOD COUNT 4.39 10^6/uL (4.00-5.40); RED CELL DISTRIBUTION WIDTH 13.3 % (11.5-14.5); WHITE BLOOD COUNT 7.5 10^3/uL (4.0-10.0)
[2017-06-14 12:18] LABS: LACTIC ACID SEPSIS PROTOCOL 1.3 MMOL/L (0.4-2.0)
[2017-06-14 12:23] LABS: ANION GAP 6 MEQ/L (8-16); BLOOD UREA NITROGEN 18 MG/DL (7-18); CALCIUM LEVEL 8.8 MG/DL (8.5-10.1); CARBON DIOXIDE LEVEL 29 MEQ/L (21-32); CHLORIDE LEVEL 106 MEQ/L (98-107); CREATININE FOR GFR 0.68 MG/DL (0.55-1.30); GLOMERULAR FILTRATION RATE > 60.0 (>51); GLUCOSE, FASTING 132 MG/DL (70-100); POTASSIUM SERUM 4.2 MEQ/L (3.5-5.1); SODIUM LEVEL 141 MEQ/L (136-145)
[2017-06-14] MEDS: ALPRAZolam 0.25 MG TAB PO ×2 (16:22)
== END 2017-06-14 16:48 | disposition short-term general hospital (02) ==
LOC: M ED 10:27
DX: J45.901 Unspecified asthma with (acute) exacerbation (principal); I11.9 Hypertensive heart disease without heart failure; Z95.1 Presence of aortocoronary bypass graft; J45.909 Unspecified asthma, uncomplicated; I48.91 Unspecified atrial fibrillation; E07.9 Disorder of thyroid, unspecified; F33.9 Major depressive disorder, recurrent, unspecified; Z79.899 Other long term (current) drug therapy; Z79.01 Long term (current) use of anticoagulants; Z79.890 Hormone replacement therapy; Z88.2 Allergy status to sulfonamides; Z88.5 Allergy status to narcotic agent; Z87.891 Personal history of nicotine dependence
CPT/HCPCS: J2930

== ENCOUNTER → 2017-06-17 | Outpatient (CLI) | payer MEDICARE ==
[2017-06-17 09:43] LABS: HEMATOCRIT 44.3 % (36.0-47.0); MEAN CORPUSCULAR HEMOGLOBIN 34.5 pg (27.0-33.0); MEAN CORPUSCULAR HGB CONC 33.9 g/dl (32.0-36.5); MEAN CORPUSCULAR VOLUME 101.8 fl (80.0-96.0); PLATELET COUNT, AUTOMATED 250 10^3/uL (150-450); RED BLOOD COUNT 4.35 10^6/uL (4.00-5.40); RED CELL DISTRIBUTION WIDTH 13.6 % (11.5-14.5); WHITE BLOOD COUNT 6.3 10^3/uL (4.0-10.0)
[2017-06-17 09:54] LABS: INR 2.54; PROTHROMBIN TIME 28.3 SECONDS (12.4-14.5)
[2017-06-17 10:01] LABS: ANION GAP 5 MEQ/L (8-16); BLOOD UREA NITROGEN 17 MG/DL (7-18); CALCIUM LEVEL 8.2 MG/DL (8.5-10.1); CARBON DIOXIDE LEVEL 31 MEQ/L (21-32); CHLORIDE LEVEL 106 MEQ/L (98-107); CREATININE FOR GFR 0.77 MG/DL (0.55-1.30); GLOMERULAR FILTRATION RATE > 60.0 (>51); GLUCOSE, FASTING 78 MG/DL (70-100); LDH LACTATE DEHYDROGENASE 240 U/L (84-246); MAGNESIUM LEVEL 2.3 MG/DL (1.8-2.4); POTASSIUM SERUM 4.3 MEQ/L (3.5-5.1); SODIUM LEVEL 142 MEQ/L (136-145)
== END ==
LOC: M LAB 09:12
DX: Z95.811 Presence of heart assist device (principal)
CPT/HCPCS: 83615

== ENCOUNTER → 2017-07-02 | Outpatient (CLI) | payer MEDICARE ==
[2017-07-02 07:58] LABS: HEMATOCRIT 40.5 % (36.0-47.0); HEMOGLOBIN 13.8 g/dl (12.0-16.0); MEAN CORPUSCULAR HEMOGLOBIN 34.4 pg (27.0-33.0); MEAN CORPUSCULAR HGB CONC 34.1 g/dl (32.0-36.5); PLATELET COUNT, AUTOMATED 200 10^3/uL (150-450); RED BLOOD COUNT 4.01 10^6/uL (4.00-5.40); RED CELL DISTRIBUTION WIDTH 13.4 % (11.5-14.5)
[2017-07-02 08:09] LABS: INR 2.52; PROTHROMBIN TIME 28.2 SECONDS (12.4-14.5)
[2017-07-02 08:11] LABS: ANION GAP 4 MEQ/L (8-16); BLOOD UREA NITROGEN 10 MG/DL (7-18); CALCIUM LEVEL 8.4 MG/DL (8.5-10.1); CARBON DIOXIDE LEVEL 32 MEQ/L (21-32); CHLORIDE LEVEL 107 MEQ/L (98-107); CREATININE FOR GFR 0.67 MG/DL (0.55-1.30); GLOMERULAR FILTRATION RATE > 60.0 (>51); GLUCOSE, FASTING 91 MG/DL (70-100); LDH LACTATE DEHYDROGENASE 242 U/L (84-246); MAGNESIUM LEVEL 1.8 MG/DL (1.8-2.4); SODIUM LEVEL 143 MEQ/L (136-145)
== END ==
LOC: M LAB 07:02
DX: Z95.811 Presence of heart assist device (principal)
CPT/HCPCS: 83615

== ENCOUNTER 2017-07-12 08:31 | Outpatient (RCR) | payer MEDICARE | END 2017-07-27 | LOC: M CR 08:31 | DX: Z51.89 Encounter for other specified aftercare (principal); Z95.811 Presence of heart assist device | CPT/HCPCS: 93798 ==

== ENCOUNTER → 2017-07-12 | Outpatient (CLI) | payer MEDICARE ==
[2017-07-12 07:42] LABS: CHOLESTEROL LEVEL 175 MG/DL (<200); CHOLESTEROL RISK RATIO 2.536 (<5); FREE T4 1.31 NG/DL (0.76-1.46); HDL CHOLESTEROL 69 MG/DL (>40); LDL CHOLESTEROL 91.6 MG/DL (<100); NON-HDL-C 106 MG/DL; THYROID STIMULATING HORMONE 0.142 uIU/ML (0.358-3.740); TRIGLYCERIDES LEVEL 72 MG/DL (<150); URIC ACID 4.3 MG/DL (2.6-6.0)
== END ==
LOC: M LAB 06:14
DX: M1A.0710 Idiopathic chronic gout, right ankle and foot, without tophus (tophi) (principal); E03.9 Hypothyroidism, unspecified; Z13.220 Encounter for screening for lipoid disorders
CPT/HCPCS: 73610

== ENCOUNTER → 2017-07-24 | Outpatient (CLI) | payer MEDICARE ==
[2017-07-24 07:39] LABS: CHOLESTEROL LEVEL 174 MG/DL (<200); CHOLESTEROL RISK RATIO 2.718 (<5); HDL CHOLESTEROL 64 MG/DL (>40); NON-HDL-C 110 MG/DL; TRIGLYCERIDES LEVEL 120 MG/DL (<150)
== END ==
LOC: M LAB 06:11
DX: I50.9 Heart failure, unspecified (principal); Z95.811 Presence of heart assist device

== ENCOUNTER → 2017-07-24 | Outpatient (CLI) | payer MEDICARE ==
[2017-07-24 07:28] LABS: HEMATOCRIT 39.7 % (36.0-47.0); HEMOGLOBIN 13.5 g/dl (12.0-16.0); MEAN CORPUSCULAR HEMOGLOBIN 34.8 pg (27.0-33.0); MEAN CORPUSCULAR VOLUME 102.3 fl (80.0-96.0); PLATELET COUNT, AUTOMATED 236 10^3/uL (150-450); RED BLOOD COUNT 3.88 10^6/uL (4.00-5.40); RED CELL DISTRIBUTION WIDTH 13.6 % (11.5-14.5); WHITE BLOOD COUNT 4.1 10^3/uL (4.0-10.0)
[2017-07-24 07:41] LABS: INR 3.26; PROTHROMBIN TIME 34.8 SECONDS (12.4-14.5)
[2017-07-24 07:44] LABS: ANION GAP 4 MEQ/L (8-16); BLOOD UREA NITROGEN 10 MG/DL (7-18); CALCIUM LEVEL 8.3 MG/DL (8.5-10.1); CARBON DIOXIDE LEVEL 32 MEQ/L (21-32); CHLORIDE LEVEL 106 MEQ/L (98-107); CREATININE FOR GFR 0.63 MG/DL (0.55-1.30); GLOMERULAR FILTRATION RATE > 60.0 (>51); GLUCOSE, FASTING 88 MG/DL (70-100); LDH LACTATE DEHYDROGENASE 270 U/L (84-246); MAGNESIUM LEVEL 2.2 MG/DL (1.8-2.4); POTASSIUM SERUM 4.4 MEQ/L (3.5-5.1); SODIUM LEVEL 142 MEQ/L (136-145)
== END ==
LOC: M LAB 06:17
DX: I50.9 Heart failure, unspecified (principal); Z95.811 Presence of heart assist device
CPT/HCPCS: 83615

== ENCOUNTER 2017-07-29 13:06 | Outpatient (RCR) | payer MEDICARE | END 2017-08-26 | LOC: M CR 13:06 | DX: Z95.810 Presence of automatic (implantable) cardiac defibrillator (principal) | CPT/HCPCS: 93798 ==

== ENCOUNTER → 2017-08-09 | Outpatient (CLI) | payer MEDICARE ==
[2017-08-09 07:40] LABS: HEMATOCRIT 38.7 % (36.0-47.0); HEMOGLOBIN 13.5 g/dl (12.0-15.5); MEAN CORPUSCULAR HEMOGLOBIN 35.4 pg (27.0-33.0); MEAN CORPUSCULAR HGB CONC 34.9 g/dl (32.0-36.5); MEAN CORPUSCULAR VOLUME 101.6 fl (80.0-96.0); PLATELET COUNT, AUTOMATED 254 10^3/uL (150-450); RED BLOOD COUNT 3.81 10^6/uL (4.00-5.40); RED CELL DISTRIBUTION WIDTH 13.8 % (11.5-14.5); WHITE BLOOD COUNT 4.3 10^3/uL (4.0-10.0)
[2017-08-09 07:51] LABS: INR 2.84; PROTHROMBIN TIME 31.1 SECONDS (12.4-14.5)
[2017-08-09 08:06] LABS: ANION GAP 5 MEQ/L (8-16); BLOOD UREA NITROGEN 11 MG/DL (7-18); CALCIUM LEVEL 8.4 MG/DL (8.5-10.1); CARBON DIOXIDE LEVEL 32 MEQ/L (21-32); CHLORIDE LEVEL 106 MEQ/L (98-107); CREATININE FOR GFR 0.76 MG/DL (0.55-1.30); GLOMERULAR FILTRATION RATE > 60.0 (>51); GLUCOSE, FASTING 93 MG/DL (70-100); LDH LACTATE DEHYDROGENASE 255 U/L (84-246); MAGNESIUM LEVEL 2.1 MG/DL (1.8-2.4); POTASSIUM SERUM 4.3 MEQ/L (3.5-5.1); SODIUM LEVEL 143 MEQ/L (136-145)
== END ==
LOC: M LAB 07:11
DX: Z95.811 Presence of heart assist device (principal)
CPT/HCPCS: 83615

== ENCOUNTER → 2017-08-19 | Outpatient (CLI) | payer MEDICARE | LOC: M RAD 06:15 | DX: D17.5 Benign lipomatous neoplasm of intra-abdominal organs (principal) | CPT/HCPCS: 76700 ==

== ENCOUNTER 2017-09-02 09:24 | Outpatient (RCR) | payer MEDICARE | END 2017-09-26 | LOC: M CR 09:24 | DX: Z95.811 Presence of heart assist device (principal) | CPT/HCPCS: 93798 ==

== ENCOUNTER → 2017-09-02 | Outpatient (CLI) | payer MEDICARE ==
[2017-09-02 08:34] LABS: HEMATOCRIT 39.2 % (36.0-47.0); HEMOGLOBIN 13.7 g/dl (12.0-15.5); MEAN CORPUSCULAR HEMOGLOBIN 35.5 pg (27.0-33.0); MEAN CORPUSCULAR HGB CONC 34.9 g/dl (32.0-36.5); MEAN CORPUSCULAR VOLUME 101.6 fl (80.0-96.0); PLATELET COUNT, AUTOMATED 230 10^3/uL (150-450); RED BLOOD COUNT 3.86 10^6/uL (4.00-5.40); RED CELL DISTRIBUTION WIDTH 13.1 % (11.5-14.5); WHITE BLOOD COUNT 4.7 10^3/uL (4.0-10.0)
[2017-09-02 08:57] LABS: ANION GAP 6 MEQ/L (8-16); BLOOD UREA NITROGEN 11 MG/DL (7-18); CALCIUM LEVEL 8.4 MG/DL (8.5-10.1); CARBON DIOXIDE LEVEL 31 MEQ/L (21-32); CHLORIDE LEVEL 104 MEQ/L (98-107); CREATININE FOR GFR 0.78 MG/DL (0.55-1.30); GLOMERULAR FILTRATION RATE > 60.0 (>51); GLUCOSE, FASTING 99 MG/DL (70-100); LDH LACTATE DEHYDROGENASE 250 U/L (84-246); POTASSIUM SERUM 4.2 MEQ/L (3.5-5.1); SODIUM LEVEL 141 MEQ/L (136-145)
[2017-09-02 09:34] LABS: INR 3.08; PROTHROMBIN TIME 33.2 SECONDS (12.4-14.5)
== END ==
LOC: M LAB 08:01
DX: Z95.811 Presence of heart assist device (principal)
CPT/HCPCS: 83615

== ENCOUNTER → 2017-09-13 | Outpatient (CLI) | payer MEDICARE | LOC: M LAB 08:37 | DX: I42.9 Cardiomyopathy, unspecified (principal) ==

== ENCOUNTER → 2017-09-13 | Outpatient (CLI) | payer MEDICARE ==
[2017-09-13 09:28] LABS: HEMATOCRIT 40.9 % (36.0-47.0); HEMOGLOBIN 14.2 g/dl (12.0-15.5); MEAN CORPUSCULAR HEMOGLOBIN 35.3 pg (27.0-33.0); MEAN CORPUSCULAR HGB CONC 34.7 g/dl (32.0-36.5); MEAN CORPUSCULAR VOLUME 101.7 fl (80.0-96.0); PLATELET COUNT, AUTOMATED 262 10^3/uL (150-450); RED BLOOD COUNT 4.02 10^6/uL (4.00-5.40); RED CELL DISTRIBUTION WIDTH 12.9 % (11.5-14.5); WHITE BLOOD COUNT 3.5 10^3/uL (4.0-10.0)
[2017-09-13 09:42] LABS: INR 2.85; PROTHROMBIN TIME 31.2 SECONDS (12.4-14.5)
[2017-09-13 10:08] LABS: ANION GAP 5 MEQ/L (8-16); BLOOD UREA NITROGEN 12 MG/DL (7-18); CARBON DIOXIDE LEVEL 32 MEQ/L (21-32); CHLORIDE LEVEL 102 MEQ/L (98-107); CREATININE FOR GFR 0.72 MG/DL (0.55-1.30); GLOMERULAR FILTRATION RATE > 60.0 (>51); GLUCOSE, FASTING 93 MG/DL (70-100); LDH LACTATE DEHYDROGENASE 266 U/L (84-246); POTASSIUM SERUM 4.4 MEQ/L (3.5-5.1); SODIUM LEVEL 139 MEQ/L (136-145)
== END ==
LOC: M LAB 08:41
DX: Z95.811 Presence of heart assist device (principal)
CPT/HCPCS: 83615

== ENCOUNTER → 2017-09-18 | Outpatient (CLI) | payer MEDICARE ==
[2017-09-18 09:13] LABS: TOTAL VOLUME, URINE 2050 ML; URINE VOLUME 2050 ML
[2017-09-18 09:22] LABS: URINE TOTAL PROTEIN 7.3 MG/DL (0-12)
[2017-09-18 09:32] LABS: CREATININE, SERUM 0.8 MG/DL (0.6-1.0)
[2017-09-18 09:49] LABS: CREATININE CLEARANCE, URINE 100.9 ML/MIN (75-115); CREATININE, URINE 56.7 MG/DL
[2017-09-19 14:40] LABS: UPEP INTERPRETATION NO M-SPIKE NOTED
== END ==
LOC: M LAB 08:16
DX: Z12.31 Encounter for screening mammogram for malignant neoplasm of breast (principal); I50.9 Heart failure, unspecified; I42.9 Cardiomyopathy, unspecified; I11.0 Hypertensive heart disease with heart failure; Z92.0 Personal history of contraception; Z92.89 Personal history of other medical treatment
CPT/HCPCS: 77067

== ENCOUNTER → 2017-09-29 | Outpatient (CLI) | payer MEDICARE ==
[2017-09-29 12:57] LABS: HEMATOCRIT 44.2 % (36.0-47.0); HEMOGLOBIN 15.4 g/dl (12.0-15.5); MEAN CORPUSCULAR HEMOGLOBIN 35.7 pg (27.0-33.0); MEAN CORPUSCULAR HGB CONC 34.8 g/dl (32.0-36.5); MEAN CORPUSCULAR VOLUME 102.6 fl (80.0-96.0); PLATELET COUNT, AUTOMATED 267 10^3/uL (150-450); RED BLOOD COUNT 4.31 10^6/uL (4.00-5.40); RED CELL DISTRIBUTION WIDTH 12.9 % (11.5-14.5); WHITE BLOOD COUNT 7.1 10^3/uL (4.0-10.0)
[2017-09-29 13:08] LABS: INR 2.58; PROTHROMBIN TIME 28.7 SECONDS (12.4-14.5)
[2017-09-29 13:55] LABS: ANION GAP 9 MEQ/L (8-16); BLOOD UREA NITROGEN 15 MG/DL (7-18); CALCIUM LEVEL 8.6 MG/DL (8.5-10.1); CARBON DIOXIDE LEVEL 31 MEQ/L (21-32); CHLORIDE LEVEL 100 MEQ/L (98-107); CREATININE FOR GFR 0.86 MG/DL (0.55-1.30); GLOMERULAR FILTRATION RATE > 60.0 (>51); GLUCOSE, FASTING 82 MG/DL (70-100); LDH LACTATE DEHYDROGENASE 278 U/L (84-246); MAGNESIUM LEVEL 2.1 MG/DL (1.8-2.4); POTASSIUM SERUM 3.9 MEQ/L (3.5-5.1); SODIUM LEVEL 140 MEQ/L (136-145)
== END ==
LOC: M LAB 12:00
DX: Z95.811 Presence of heart assist device (principal)
CPT/HCPCS: 83615

== ENCOUNTER → 2017-10-14 | Outpatient (CLI) | payer MEDICARE ==
[2017-10-14 06:39] LABS: HEMATOCRIT 41.4 % (36.0-47.0); HEMOGLOBIN 14.5 g/dl (12.0-15.5); MEAN CORPUSCULAR HEMOGLOBIN 35.8 pg (27.0-33.0); MEAN CORPUSCULAR VOLUME 102.2 fl (80.0-96.0); PLATELET COUNT, AUTOMATED 222 10^3/uL (150-450); RED BLOOD COUNT 4.05 10^6/uL (4.00-5.40); RED CELL DISTRIBUTION WIDTH 12.9 % (11.5-14.5); WHITE BLOOD COUNT 4.7 10^3/uL (4.0-10.0)
[2017-10-14 06:50] LABS: INR 1.39; PROTHROMBIN TIME 17.4 SECONDS (12.4-14.5)
[2017-10-14 07:03] LABS: ANION GAP 5 MEQ/L (8-16); BLOOD UREA NITROGEN 10 MG/DL (7-18); CALCIUM LEVEL 8.7 MG/DL (8.5-10.1); CARBON DIOXIDE LEVEL 32 MEQ/L (21-32); CHLORIDE LEVEL 103 MEQ/L (98-107); CREATININE FOR GFR 0.87 MG/DL (0.55-1.30); GLOMERULAR FILTRATION RATE > 60.0 (>51); GLUCOSE, FASTING 82 MG/DL (70-100); LDH LACTATE DEHYDROGENASE 277 U/L (84-246); MAGNESIUM LEVEL 2.1 MG/DL (1.8-2.4); POTASSIUM SERUM 4.1 MEQ/L (3.5-5.1); SODIUM LEVEL 140 MEQ/L (136-145)
== END ==
LOC: M LAB 06:16
DX: Z95.811 Presence of heart assist device (principal)
CPT/HCPCS: 83615

== ENCOUNTER → 2017-10-23 | Outpatient (CLI) | payer MEDICARE ==
[2017-10-23 18:24] LABS: LDH LACTATE DEHYDROGENASE 289 U/L (84-246)
[2017-10-23 18:28] LABS: ANION GAP 8 MEQ/L (8-16); BLOOD UREA NITROGEN 21 MG/DL (7-18); CALCIUM LEVEL 8.8 MG/DL (8.5-10.1); CARBON DIOXIDE LEVEL 31 MEQ/L (21-32); CHLORIDE LEVEL 100 MEQ/L (98-107); CREATININE FOR GFR 1.09 MG/DL (0.55-1.30); GLOMERULAR FILTRATION RATE 56.1 (>51); GLUCOSE, FASTING 81 MG/DL (70-100); POTASSIUM SERUM 4.6 MEQ/L (3.5-5.1); SODIUM LEVEL 139 MEQ/L (136-145)
[2017-10-23 18:39] LABS: HEMATOCRIT 42.6 % (36.0-47.0); INR 1.69; MEAN CORPUSCULAR HEMOGLOBIN 35.5 pg (27.0-33.0); MEAN CORPUSCULAR HGB CONC 35.2 g/dl (32.0-36.5); MEAN CORPUSCULAR VOLUME 100.7 fl (80.0-96.0); PLATELET COUNT, AUTOMATED 291 10^3/uL (150-450); PROTHROMBIN TIME 20.2 SECONDS (12.1-14.4); RED BLOOD COUNT 4.23 10^6/uL (4.00-5.40); RED CELL DISTRIBUTION WIDTH 12.6 % (11.5-14.5); WHITE BLOOD COUNT 6.3 10^3/uL (4.0-10.0)
== END ==
LOC: M LAB 17:18
DX: Z95.811 Presence of heart assist device (principal)
CPT/HCPCS: 83615

== ENCOUNTER → 2017-11-06 | Outpatient (CLI) | payer MEDICARE ==
[2017-11-06 07:09] LABS: INR 1.74; PROTHROMBIN TIME 20.7 SECONDS (12.1-14.4)
[2017-11-06 07:23] LABS: ANION GAP 4 MEQ/L (8-16); BLOOD UREA NITROGEN 16 MG/DL (7-18); CALCIUM LEVEL 8.5 MG/DL (8.5-10.1); CARBON DIOXIDE LEVEL 32 MEQ/L (21-32); CHLORIDE LEVEL 103 MEQ/L (98-107); CREATININE FOR GFR 0.82 MG/DL (0.55-1.30); GLOMERULAR FILTRATION RATE > 60.0 (>51); GLUCOSE, FASTING 82 MG/DL (70-100); LDH LACTATE DEHYDROGENASE 274 U/L (84-246); POTASSIUM SERUM 4.2 MEQ/L (3.5-5.1); SODIUM LEVEL 139 MEQ/L (136-145)
== END ==
LOC: M LAB 06:11
DX: I50.9 Heart failure, unspecified (principal)
CPT/HCPCS: 83615

== ENCOUNTER → 2017-11-13 | Outpatient (CLI) | payer MEDICARE ==
[2017-11-13 10:38] LABS: ALBUMIN 3.6 GM/DL (3.2-5.2); ALBUMIN/GLOBULIN RATIO 1.06 (1.00-1.93); ALKALINE PHOSPHATASE 69 U/L (45-117); ALT/SGPT 25 U/L (12-78); ANION GAP 5 MEQ/L (8-16); AST/SGOT 22 U/L (7-37); BILIRUBIN,TOTAL 0.5 MG/DL (0.2-1.0); BLOOD UREA NITROGEN 15 MG/DL (7-18); CALCIUM LEVEL 8.3 MG/DL (8.5-10.1); CARBON DIOXIDE LEVEL 32 MEQ/L (21-32); CHLORIDE LEVEL 105 MEQ/L (98-107); CREATININE FOR GFR 0.86 MG/DL (0.55-1.30); GLOMERULAR FILTRATION RATE > 60.0 (>51); GLUCOSE, FASTING 59 MG/DL (70-100); POTASSIUM SERUM 4.3 MEQ/L (3.5-5.1); SODIUM LEVEL 142 MEQ/L (136-145)
== END ==
LOC: M LAB 09:25
DX: I49.01 Ventricular fibrillation (principal); I50.9 Heart failure, unspecified
CPT/HCPCS: 83615

== ENCOUNTER → 2017-11-13 | Outpatient (CLI) | payer MEDICARE ==
[2017-11-13 10:11] LABS: INR 2.53; PROTHROMBIN TIME 27.8 SECONDS (12.1-14.4)
[2017-11-13 10:38] LABS: ANION GAP 3 MEQ/L (8-16); BLOOD UREA NITROGEN 15 MG/DL (7-18); CALCIUM LEVEL 8.3 MG/DL (8.5-10.1); CARBON DIOXIDE LEVEL 33 MEQ/L (21-32); CHLORIDE LEVEL 106 MEQ/L (98-107); CREATININE FOR GFR 0.82 MG/DL (0.55-1.30); GLOMERULAR FILTRATION RATE > 60.0 (>51); GLUCOSE, FASTING 65 MG/DL (70-100); LDH LACTATE DEHYDROGENASE 263 U/L (84-246); MAGNESIUM LEVEL 2.1 MG/DL (1.8-2.4); POTASSIUM SERUM 4.4 MEQ/L (3.5-5.1); SODIUM LEVEL 142 MEQ/L (136-145)
== END ==
LOC: M LAB 09:28
DX: I50.9 Heart failure, unspecified (principal)

== ENCOUNTER 2017-12-16 13:55 | Emergency (ER) | payer MEDICARE ==
[2017-12-16 15:01] LABS: BASO % 0.2 % (0.0-1.0); EOS # 0.1 10^3/uL (0.0-0.50); EOS % 1.2 % (0.0-3.0); HEMATOCRIT 35.7 % (36.0-47.0); HEMOGLOBIN 12.4 g/dl (12.0-15.5); IMMATURE GRANULOCYTE % 0.2 % (0-3.0); LYMPH # 0.7 10^3/uL (1.5-4.5); LYMPH % 13.7 % (24.0-44.0); MEAN CORPUSCULAR HEMOGLOBIN 36.4 pg (27.0-33.0); MEAN CORPUSCULAR HGB CONC 34.7 g/dl (32.0-36.5); MEAN CORPUSCULAR VOLUME 104.7 fl (80.0-96.0); MONO # 0.6 10^3/uL (0.0-0.8); MONO % 11.5 % (0.0-5.0); NEUTROPHILS # 3.8 10^3/uL (1.8-7.7); NEUTROPHILS % 73.2 % (36.0-66.0); PLATELET COUNT, AUTOMATED 204 10^3/uL (150-450); RED BLOOD COUNT 3.41 10^6/uL (4.00-5.40); RED CELL DISTRIBUTION WIDTH 13.9 % (11.5-14.5); WHITE BLOOD COUNT 5.1 10^3/uL (4.0-10.0)
[2017-12-16 15:10] LABS: INR 2.31; PROTHROMBIN TIME 25.8 SECONDS (12.1-14.4)
[2017-12-16 15:11] LABS: PARTIAL THROMBOPLASTIN TIME 42.7 SECONDS (25.4-37.6)
[2017-12-16 15:31] LABS: ANION GAP 8 MEQ/L (8-16); BLOOD UREA NITROGEN 15 MG/DL (7-18); CALCIUM LEVEL 8.2 MG/DL (8.5-10.1); CARBON DIOXIDE LEVEL 30 MEQ/L (21-32); CHLORIDE LEVEL 104 MEQ/L (98-107); CREATININE FOR GFR 0.83 MG/DL (0.55-1.30); GLOMERULAR FILTRATION RATE > 60.0 (>51); GLUCOSE, FASTING 78 MG/DL (70-100); POTASSIUM SERUM 3.9 MEQ/L (3.5-5.1); SODIUM LEVEL 142 MEQ/L (136-145)
== END 2017-12-16 15:52 | disposition home or self-care (01) ==
LOC: M ED 13:55
DX: M71.22 Synovial cyst of popliteal space [Baker], left knee (principal); I50.9 Heart failure, unspecified; I11.0 Hypertensive heart disease with heart failure; J44.9 Chronic obstructive pulmonary disease, unspecified; E07.9 Disorder of thyroid, unspecified; G47.00 Insomnia, unspecified; F41.9 Anxiety disorder, unspecified; Z79.01 Long term (current) use of anticoagulants; Z79.899 Other long term (current) drug therapy; Z95.811 Presence of heart assist device; Z88.5 Allergy status to narcotic agent; Z88.2 Allergy status to sulfonamides; Z86.79 Personal history of other diseases of the circulatory system; Z86.2 Personal history of diseases of the blood and blood-forming organs and certain disorders involving the immune mechanism
CPT/HCPCS: 93971

== ENCOUNTER → 2018-01-01 | Outpatient (CLI) | payer MEDICARE ==
[2018-01-01 07:16] LABS: INR 2.74; PROTHROMBIN TIME 29.6 SECONDS (12.1-14.4)
[2018-01-01 07:17] LABS: ANION GAP 8 MEQ/L (8-16); BLOOD UREA NITROGEN 13 MG/DL (7-18); CALCIUM LEVEL 8.3 MG/DL (8.5-10.1); CARBON DIOXIDE LEVEL 30 MEQ/L (21-32); CHLORIDE LEVEL 104 MEQ/L (98-107); CREATININE FOR GFR 0.76 MG/DL (0.55-1.30); GLOMERULAR FILTRATION RATE > 60.0 (>51); GLUCOSE, FASTING 74 MG/DL (70-100); LDH LACTATE DEHYDROGENASE 276 U/L (84-246); POTASSIUM SERUM 4.2 MEQ/L (3.5-5.1); SODIUM LEVEL 142 MEQ/L (136-145)
== END ==
LOC: M LAB 06:08
DX: I50.9 Heart failure, unspecified (principal)
CPT/HCPCS: 83615

== ENCOUNTER → 2018-01-14 | Outpatient (CLI) | payer MEDICARE ==
[2018-01-14 07:54] LABS: INR 2.61; PROTHROMBIN TIME 28.5 SECONDS (12.1-14.4)
[2018-01-14 07:56] LABS: ANION GAP 7 MEQ/L (8-16); BLOOD UREA NITROGEN 16 MG/DL (7-18); CALCIUM LEVEL 8.3 MG/DL (8.5-10.1); CARBON DIOXIDE LEVEL 30 MEQ/L (21-32); CHLORIDE LEVEL 103 MEQ/L (98-107); CREATININE FOR GFR 0.86 MG/DL (0.55-1.30); GLOMERULAR FILTRATION RATE > 60.0 (>51); GLUCOSE, FASTING 81 MG/DL (70-100); LDH LACTATE DEHYDROGENASE 249 U/L (84-246); MAGNESIUM LEVEL 1.9 MG/DL (1.8-2.4); POTASSIUM SERUM 4.7 MEQ/L (3.5-5.1); SODIUM LEVEL 140 MEQ/L (136-145)
== END ==
LOC: M LAB 06:45
DX: I50.9 Heart failure, unspecified (principal)
CPT/HCPCS: 83615

== ENCOUNTER → 2018-01-29 | Outpatient (CLI) | payer MEDICARE ==
[2018-01-29 08:24] LABS: BASO % 0.3 % (0.0-1.0); EOS % 0.5 % (0.0-3.0); HEMATOCRIT 38.5 % (36.0-47.0); HEMOGLOBIN 13.4 g/dl (12.0-15.5); IMMATURE GRANULOCYTE % 0.3 % (0-3.0); LYMPH % 20.8 % (24.0-44.0); MEAN CORPUSCULAR HGB CONC 34.8 g/dl (32.0-36.5); MEAN CORPUSCULAR VOLUME 103.5 fl (80.0-96.0); MONO % 6.9 % (0.0-5.0); NEUTROPHILS % 71.2 % (36.0-66.0); PLATELET COUNT, AUTOMATED 259 10^3/uL (150-450); RED BLOOD COUNT 3.72 10^6/uL (4.00-5.40); RED CELL DISTRIBUTION WIDTH 12.6 % (11.5-14.5); WHITE BLOOD COUNT 5.8 10^3/uL (4.0-10.0)
[2018-01-29 08:46] LABS: PROTHROMBIN TIME 30.1 SECONDS (12.1-14.4)
[2018-01-29 09:17] LABS: ANION GAP 6 MEQ/L (8-16); BLOOD UREA NITROGEN 18 MG/DL (7-18); CALCIUM LEVEL 8.3 MG/DL (8.5-10.1); CARBON DIOXIDE LEVEL 33 MEQ/L (21-32); CHLORIDE LEVEL 103 MEQ/L (98-107); CREATININE FOR GFR 0.82 MG/DL (0.55-1.30); GLOMERULAR FILTRATION RATE > 60.0 (>51); GLUCOSE, FASTING 109 MG/DL (70-100); LDH LACTATE DEHYDROGENASE 241 U/L (84-246); POTASSIUM SERUM 3.7 MEQ/L (3.5-5.1); SODIUM LEVEL 142 MEQ/L (136-145)
== END ==
LOC: M LAB 07:30
DX: Z51.81 Encounter for therapeutic drug level monitoring (principal); I50.9 Heart failure, unspecified; Z95.811 Presence of heart assist device; R79.0 Abnormal level of blood mineral; Z79.01 Long term (current) use of anticoagulants
CPT/HCPCS: 83615

== ENCOUNTER → 2018-02-24 | Outpatient (CLI) | payer MEDICARE ==
[2018-02-24 08:17] LABS: FREE T4 0.94 NG/DL (0.76-1.46)
== END ==
LOC: M LAB 07:10
DX: E03.9 Hypothyroidism, unspecified (principal); I50.9 Heart failure, unspecified; Z95.811 Presence of heart assist device; D59.4 Other nonautoimmune hemolytic anemias; T82.897A Other specified complication of cardiac prosthetic devices, implants and grafts, initial encounter
CPT/HCPCS: 83615

== ENCOUNTER → 2018-02-24 | Outpatient (CLI) | payer MEDICARE ==
[2018-02-24 07:58] LABS: BASO % 0.3 % (0.0-1.0); EOS # 0.1 10^3/uL (0.0-0.50); HEMATOCRIT 41.4 % (36.0-47.0); IMMATURE GRANULOCYTE % 0.3 % (0-3.0); LYMPH # 0.9 10^3/uL (1.5-4.5); LYMPH % 25.6 % (24.0-44.0); MEAN CORPUSCULAR HEMOGLOBIN 35.9 pg (27.0-33.0); MEAN CORPUSCULAR HGB CONC 33.8 g/dl (32.0-36.5); MEAN CORPUSCULAR VOLUME 106.2 fl (80.0-96.0); MONO # 0.4 10^3/uL (0.0-0.8); MONO % 12.2 % (0.0-5.0); NEUTROPHILS % 58.6 % (36.0-66.0); PLATELET COUNT, AUTOMATED 251 10^3/uL (150-450); WHITE BLOOD COUNT 3.4 10^3/uL (4.0-10.0)
[2018-02-24 08:09] LABS: LDH LACTATE DEHYDROGENASE 304 U/L (84-246)
[2018-02-24 08:20] LABS: INR 4.16; PROTHROMBIN TIME 41.2 SECONDS (12.1-14.4)
[2018-02-24 16:03] LABS: ANION GAP 6 MEQ/L (8-16); BLOOD UREA NITROGEN 21 MG/DL (7-18); CALCIUM LEVEL 8.1 MG/DL (8.5-10.1); CARBON DIOXIDE LEVEL 33 MEQ/L (21-32); CHLORIDE LEVEL 100 MEQ/L (98-107); CREATININE FOR GFR 0.93 MG/DL (0.55-1.30); GLOMERULAR FILTRATION RATE > 60.0 (>51); GLUCOSE, FASTING 96 MG/DL (70-100); POTASSIUM SERUM 3.8 MEQ/L (3.5-5.1); SODIUM LEVEL 139 MEQ/L (136-145)
== END ==
LOC: M LAB 07:13
DX: I50.9 Heart failure, unspecified (principal); Z95.811 Presence of heart assist device; D59.4 Other nonautoimmune hemolytic anemias; T82.897A Other specified complication of cardiac prosthetic devices, implants and grafts, initial encounter

== ENCOUNTER → 2018-03-06 | Outpatient (CLI) | payer MEDICARE ==
[2018-03-06 07:23] LABS: BASO % 0.4 % (0.0-1.0); EOS # 0.1 10^3/uL (0.0-0.50); EOS % 1.7 % (0.0-3.0); HEMATOCRIT 41.3 % (36.0-47.0); IMMATURE GRANULOCYTE % 0.4 % (0-3.0); LYMPH # 1.2 10^3/uL (1.5-4.5); LYMPH % 24.9 % (24.0-44.0); MEAN CORPUSCULAR HEMOGLOBIN 35.5 pg (27.0-33.0); MEAN CORPUSCULAR HGB CONC 33.9 g/dl (32.0-36.5); MEAN CORPUSCULAR VOLUME 104.8 fl (80.0-96.0); MONO # 0.5 10^3/uL (0.0-0.8); MONO % 10.3 % (0.0-5.0); NEUTROPHILS % 62.3 % (36.0-66.0); PLATELET COUNT, AUTOMATED 238 10^3/uL (150-450); RED BLOOD COUNT 3.94 10^6/uL (4.00-5.40); WHITE BLOOD COUNT 4.8 10^3/uL (4.0-10.0)
[2018-03-06 07:34] LABS: PROTHROMBIN TIME 48.1 SECONDS (12.1-14.4)
[2018-03-06 07:50] LABS: ANION GAP 4 MEQ/L (8-16); BLOOD UREA NITROGEN 15 MG/DL (7-18); CALCIUM LEVEL 8.4 MG/DL (8.5-10.1); CARBON DIOXIDE LEVEL 34 MEQ/L (21-32); CHLORIDE LEVEL 101 MEQ/L (98-107); CREATININE FOR GFR 0.76 MG/DL (0.55-1.30); GLOMERULAR FILTRATION RATE > 60.0 (>51); GLUCOSE, FASTING 92 MG/DL (70-100); INR 5.05; LDH LACTATE DEHYDROGENASE 330 U/L (84-246); POTASSIUM SERUM 4.3 MEQ/L (3.5-5.1); SODIUM LEVEL 139 MEQ/L (136-145)
== END ==
LOC: M LAB 06:42
DX: I50.9 Heart failure, unspecified (principal); D59.4 Other nonautoimmune hemolytic anemias; Z95.811 Presence of heart assist device
CPT/HCPCS: 83615

== ENCOUNTER → 2018-03-12 | Outpatient (CLI) | payer MEDICARE ==
[2018-03-12 06:42] LABS: BASO % 0.5 % (0.0-1.0); EOS # 0.1 10^3/uL (0.0-0.50); HEMATOCRIT 38.6 % (36.0-47.0); IMMATURE GRANULOCYTE % 0.3 % (0-3.0); LYMPH % 24.6 % (24.0-44.0); MEAN CORPUSCULAR HEMOGLOBIN 35.9 pg (27.0-33.0); MEAN CORPUSCULAR HGB CONC 33.7 g/dl (32.0-36.5); MEAN CORPUSCULAR VOLUME 106.6 fl (80.0-96.0); MONO # 0.5 10^3/uL (0.0-0.8); MONO % 12.3 % (0.0-5.0); NEUTROPHILS # 2.4 10^3/uL (1.8-7.7); NEUTROPHILS % 60.3 % (36.0-66.0); PLATELET COUNT, AUTOMATED 213 10^3/uL (150-450); RED BLOOD COUNT 3.62 10^6/uL (4.00-5.40); WHITE BLOOD COUNT 3.9 10^3/uL (4.0-10.0)
[2018-03-12 06:53] LABS: INR 2.85; PROTHROMBIN TIME 30.5 SECONDS (12.1-14.4)
[2018-03-12 07:10] LABS: ANION GAP 3 MEQ/L (8-16); BLOOD UREA NITROGEN 16 MG/DL (7-18); CALCIUM LEVEL 8.1 MG/DL (8.5-10.1); CARBON DIOXIDE LEVEL 32 MEQ/L (21-32); CHLORIDE LEVEL 103 MEQ/L (98-107); CREATININE FOR GFR 0.76 MG/DL (0.55-1.30); GLOMERULAR FILTRATION RATE > 60.0 (>51); GLUCOSE, FASTING 88 MG/DL (70-100); LDH LACTATE DEHYDROGENASE 295 U/L (84-246); MAGNESIUM LEVEL 2.1 MG/DL (1.8-2.4); POTASSIUM SERUM 4.4 MEQ/L (3.5-5.1); SODIUM LEVEL 138 MEQ/L (136-145)
== END ==
LOC: M LAB 06:14
DX: D59.4 Other nonautoimmune hemolytic anemias (principal); Z79.01 Long term (current) use of anticoagulants
CPT/HCPCS: 83615

== ENCOUNTER 2018-03-25 09:09 | Emergency (ER) | payer MEDICARE ==
[2018-03-25 09:44] LABS: BASO % 0.6 % (0.0-1.0); EOS # 0.1 10^3/uL (0.0-0.50); EOS % 2.1 % (0.0-3.0); HEMATOCRIT 40.1 % (36.0-47.0); HEMOGLOBIN 13.8 g/dl (12.0-15.5); IMMATURE GRANULOCYTE % 0.6 % (0-3.0); LYMPH # 0.8 10^3/uL (1.5-4.5); LYMPH % 23.3 % (24.0-44.0); MEAN CORPUSCULAR HGB CONC 34.4 g/dl (32.0-36.5); MEAN CORPUSCULAR VOLUME 104.7 fl (80.0-96.0); MONO # 0.4 10^3/uL (0.0-0.8); NEUTROPHILS % 61.4 % (36.0-66.0); PLATELET COUNT, AUTOMATED 237 10^3/uL (150-450); RED BLOOD COUNT 3.83 10^6/uL (4.00-5.40); RED CELL DISTRIBUTION WIDTH 13.2 % (11.5-14.5); WHITE BLOOD COUNT 3.3 10^3/uL (4.0-10.0)
[2018-03-25 09:56] LABS: INR 3.02; PARTIAL THROMBOPLASTIN TIME 37.9 SECONDS (25.4-37.6); PROTHROMBIN TIME 31.9 SECONDS (12.1-14.4)
[2018-03-25 10:16] LABS: ALBUMIN 3.6 GM/DL (3.2-5.2); ALBUMIN/GLOBULIN RATIO 1.06 (1.00-1.93); ALKALINE PHOSPHATASE 59 U/L (45-117); ALT/SGPT 30 U/L (12-78); ANION GAP 5 MEQ/L (8-16); AST/SGOT 22 U/L (7-37); BILIRUBIN,DIRECT 0.1 MG/DL (0.0-0.2); BILIRUBIN,TOTAL 0.4 MG/DL (0.2-1.0); BLOOD UREA NITROGEN 19 MG/DL (7-18); CALCIUM LEVEL 8.5 MG/DL (8.5-10.1); CARBON DIOXIDE LEVEL 31 MEQ/L (21-32); CHLORIDE LEVEL 102 MEQ/L (98-107); CK-MB VALUE MASS < 1.0 NG/ML (<3.6); CPK CREATINE PHOSPHOKINASE 63 U/L (26-192); FREE T4 0.93 NG/DL (0.76-1.46); GLOMERULAR FILTRATION RATE > 60.0 (>51); GLUCOSE, FASTING 95 MG/DL (70-100); MAGNESIUM LEVEL 2.1 MG/DL (1.8-2.4); MB/CK RELATIVE INDEX 1.59 (< OR =4); POTASSIUM SERUM 3.9 MEQ/L (3.5-5.1); SODIUM LEVEL 138 MEQ/L (136-145); TROPONIN I < 0.02 NG/ML (< 0.10)
[2018-03-25] MEDS: ACETAMINOPH W/CODEINE #3 TAB UD PO (12:13)
== END 2018-03-25 12:57 | disposition home or self-care (01) ==
LOC: M ED 09:09
DX: R07.9 Chest pain, unspecified (principal); R51 Headache; I50.9 Heart failure, unspecified; I11.0 Hypertensive heart disease with heart failure; I25.2 Old myocardial infarction; Z95.811 Presence of heart assist device; J44.9 Chronic obstructive pulmonary disease, unspecified; E03.9 Hypothyroidism, unspecified; Z98.84 Bariatric surgery status; G47.33 Obstructive sleep apnea (adult) (pediatric); Z86.79 Personal history of other diseases of the circulatory system; Z88.5 Allergy status to narcotic agent; Z88.2 Allergy status to sulfonamides; Z79.899 Other long term (current) drug therapy; Z79.01 Long term (current) use of anticoagulants; Z79.02 Long term (current) use of antithrombotics/antiplatelets; Z79.51 Long term (current) use of inhaled steroids
CPT/HCPCS: 71045

== ENCOUNTER → 2018-04-10 | Outpatient (CLI) | payer MEDICARE ==
[2018-04-10 07:13] LABS: BASO % 0.2 % (0.0-1.0); EOS # 0.1 10^3/uL (0.0-0.50); EOS % 1.6 % (0.0-3.0); HEMATOCRIT 43.1 % (36.0-47.0); HEMOGLOBIN 14.9 g/dl (12.0-15.5); IMMATURE GRANULOCYTE % 0.4 % (0-3.0); LYMPH # 0.9 10^3/uL (1.5-4.5); LYMPH % 18.6 % (24.0-44.0); MEAN CORPUSCULAR HEMOGLOBIN 35.8 pg (27.0-33.0); MEAN CORPUSCULAR HGB CONC 34.6 g/dl (32.0-36.5); MEAN CORPUSCULAR VOLUME 103.6 fl (80.0-96.0); MONO # 0.6 10^3/uL (0.0-0.8); MONO % 11.9 % (0.0-5.0); NEUTROPHILS # 3.3 10^3/uL (1.8-7.7); NEUTROPHILS % 67.3 % (36.0-66.0); PLATELET COUNT, AUTOMATED 249 10^3/uL (150-450); RED BLOOD COUNT 4.16 10^6/uL (4.00-5.40); WHITE BLOOD COUNT 4.9 10^3/uL (4.0-10.0)
[2018-04-10 07:25] LABS: INR 2.72; PROTHROMBIN TIME 29.5 SECONDS (12.1-14.4)
[2018-04-10 07:37] LABS: ALBUMIN 3.8 GM/DL (3.2-5.2); ALBUMIN/GLOBULIN RATIO 1.03 (1.00-1.93); ALKALINE PHOSPHATASE 68 U/L (45-117); ALT/SGPT 25 U/L (12-78); ANION GAP 4 MEQ/L (8-16); AST/SGOT 26 U/L (7-37); BILIRUBIN,TOTAL 0.8 MG/DL (0.2-1.0); BLOOD UREA NITROGEN 19 MG/DL (7-18); CALCIUM LEVEL 8.4 MG/DL (8.5-10.1); CARBON DIOXIDE LEVEL 33 MEQ/L (21-32); CHLORIDE LEVEL 102 MEQ/L (98-107); CREATININE FOR GFR 1.04 MG/DL (0.55-1.30); GLOMERULAR FILTRATION RATE 59.2 (>51); GLUCOSE, FASTING 71 MG/DL (70-100); LDH LACTATE DEHYDROGENASE 291 U/L (84-246); SODIUM LEVEL 139 MEQ/L (136-145); TOTAL PROTEIN 7.5 GM/DL (6.4-8.2)
== END ==
LOC: M LAB 06:40
DX: I50.9 Heart failure, unspecified (principal); R79.0 Abnormal level of blood mineral; Z79.01 Long term (current) use of anticoagulants; I42.9 Cardiomyopathy, unspecified; M25.562 Pain in left knee; G89.29 Other chronic pain
CPT/HCPCS: 83615

== ENCOUNTER → 2018-04-10 | Outpatient (CLI) | payer MEDICARE ==
[2018-04-15 14:17] LABS: C6 BORRELIA BURGDORFERI (LYME) <0.91 index (0.00-0.90)
== END ==
LOC: M LAB 15:26
DX: M25.562 Pain in left knee (principal); G89.29 Other chronic pain

== ENCOUNTER → 2018-05-02 | Outpatient (CLI) | payer MEDICARE ==
[~2018-05-02] MED LIST changes: +BIOT1CAP2 PO; +CLOP75TA2; +COLA100C5 PO; -GABA-282; +GABA-843 PO; -IBUP200C10 PO; +IBUP200C25 PO; +IRON65TA PO; +LEVO10VL IM; +LEVO88TA3 PO; +LOVE1INJ SC; +POTA20TA6; +PRAM0.126 PO; -PRAM0.252 PO; +PRAM0.255 PO; +PRED20TA PO; +PROTPAK PO; +SPIR-10; +TRAZ-160 PO; -TRAZ50TA11 PO; +VENL50TA2 PO; +VITA100L PO; +VITA1CAP2 PO; +citracel; +duoneb INH
[2018-05-02 06:59] LABS: BASO % 0.2 % (0.0-1.0); EOS # 0.1 10^3/uL (0.0-0.50); EOS % 1.2 % (0.0-3.0); HEMATOCRIT 40.1 % (36.0-47.0); HEMOGLOBIN 13.8 g/dl (12.0-15.5); LYMPH # 0.7 10^3/uL (1.5-4.5); LYMPH % 17.6 % (24.0-44.0); MEAN CORPUSCULAR HEMOGLOBIN 36.2 pg (27.0-33.0); MEAN CORPUSCULAR HGB CONC 34.4 g/dl (32.0-36.5); MEAN CORPUSCULAR VOLUME 105.2 fl (80.0-96.0); MONO # 0.4 10^3/uL (0.0-0.8); MONO % 10.2 % (0.0-5.0); NEUTROPHILS # 2.8 10^3/uL (1.8-7.7); NEUTROPHILS % 70.6 % (36.0-66.0); PLATELET COUNT, AUTOMATED 233 10^3/uL (150-450); RED BLOOD COUNT 3.81 10^6/uL (4.00-5.40)
[2018-05-02 07:10] LABS: INR 3.89; PROTHROMBIN TIME 39.1 SECONDS (12.1-14.4)
[2018-05-02 07:25] LABS: BLOOD UREA NITROGEN 10 MG/DL (7-18); CALCIUM LEVEL 7.9 MG/DL (8.5-10.1); CARBON DIOXIDE LEVEL 30 MEQ/L (21-32); CHLORIDE LEVEL 105 MEQ/L (98-107); CREATININE FOR GFR 0.77 MG/DL (0.55-1.30); GLOMERULAR FILTRATION RATE > 60.0 (>51); GLUCOSE, FASTING 85 MG/DL (70-100); LDH LACTATE DEHYDROGENASE 258 U/L (84-246); POTASSIUM SERUM 4.3 MEQ/L (3.5-5.1); SODIUM LEVEL 142 MEQ/L (136-145)
== END ==
LOC: M LAB 06:26
PROVIDERS: ATTEND Nurse Practitioner Adult Health
DX: I42.9 Cardiomyopathy, unspecified (principal); Z95.811 Presence of heart assist device; Z79.01 Long term (current) use of anticoagulants

== ENCOUNTER → 2018-05-13 | Outpatient (CLI) | payer MEDICARE ==
[2018-05-13 06:59] LABS: BASO % 0.3 % (0.0-1.0); EOS # 0.1 10^3/uL (0.0-0.50); EOS % 2.3 % (0.0-3.0); HEMATOCRIT 42.8 % (36.0-47.0); HEMOGLOBIN 14.7 g/dl (12.0-15.5); LYMPH # 1.1 10^3/uL (1.5-4.5); LYMPH % 27.4 % (24.0-44.0); MEAN CORPUSCULAR HEMOGLOBIN 36.1 pg (27.0-33.0); MEAN CORPUSCULAR HGB CONC 34.3 g/dl (32.0-36.5); MEAN CORPUSCULAR VOLUME 105.2 fl (80.0-96.0); MONO # 0.5 10^3/uL (0.0-0.8); MONO % 12.8 % (0.0-5.0); NEUTROPHILS # 2.2 10^3/uL (1.8-7.7); NEUTROPHILS % 56.7 % (36.0-66.0); PLATELET COUNT, AUTOMATED 257 10^3/uL (150-450); RED BLOOD COUNT 4.07 10^6/uL (4.00-5.40); WHITE BLOOD COUNT 3.8 10^3/uL (4.0-10.0)
[2018-05-13 07:09] LABS: INR 2.54; PROTHROMBIN TIME 27.9 SECONDS (12.1-14.4)
[2018-05-13 07:22] LABS: ALBUMIN 3.7 GM/DL (3.2-5.2); ALT/SGPT 22 U/L (12-78); BILIRUBIN,TOTAL 0.5 MG/DL (0.2-1.0); BLOOD UREA NITROGEN 12 MG/DL (7-18); CALCIUM LEVEL 8.6 MG/DL (8.5-10.1); CARBON DIOXIDE LEVEL 33 MEQ/L (21-32); CHLORIDE LEVEL 101 MEQ/L (98-107); CREATININE FOR GFR 0.85 MG/DL (0.55-1.30); GLOMERULAR FILTRATION RATE > 60.0 (>51); GLUCOSE, FASTING 61 MG/DL (70-100); LDH LACTATE DEHYDROGENASE 276 U/L (84-246); MAGNESIUM LEVEL 1.9 MG/DL (1.8-2.4); POTASSIUM SERUM 4.2 MEQ/L (3.5-5.1); SODIUM LEVEL 139 MEQ/L (136-145); TOTAL PROTEIN 7.3 GM/DL (6.4-8.2)
== END ==
LOC: M LAB 06:08
PROVIDERS: ATTEND Nurse Practitioner Adult Health
DX: I42.9 Cardiomyopathy, unspecified (principal); Z95.811 Presence of heart assist device; Z79.01 Long term (current) use of anticoagulants

== ENCOUNTER → 2018-06-26 | Outpatient (CLI) | payer MEDICARE ==
--- NOTE | 2018-06-26 14:02 | REP ---
Pleural effusion. Technique: Axial noncontrast images from the thoracic inlet to the upper abdomen with coronal and sagittal re-formations. Comparison: 12/02/2013. Findings: Heart suggests generalized cardiomyopathy with moderate pericardial effusion. Small left pleural effusion is identified along with moderate left lower lobe consolidation/atelectasis with air bronchograms and mild scattered linear fibroatelectatic changes to the lingula, medial right middle lobe and right lower lobe. Small but prominent mediastinal and hilar lymph nodes are identified and nonspecific. Evidence of prior sternotomy noted. No focal osseous abnormality identified. Limited upper abdomen demonstrates normal bilateral adrenal glands and evidence for prior cholecystectomy. Impression: Cardiomyopathy with moderate pericardial effusion, small left pleural effusion, moderate left lower lobe consolidation and scattered linear fibroatelectatic changes. These findings are relatively similar to prior examination and require correlation. Electronically Signed by Chris Senior MD 06/26/2018 01:53 P
== END ==
LOC: M RAD 12:55
DX: I42.9 Cardiomyopathy, unspecified (principal); J90 Pleural effusion, not elsewhere classified; Z94.1 Heart transplant status

== ENCOUNTER → 2018-07-07 | Outpatient (CLI) | payer MEDICARE ==
[2018-07-07 08:43] LABS: BASO % 0.1 % (0.0-1.0); EOS % 0.1 % (0.0-3.0); HEMATOCRIT 34.6 % (36.0-47.0); HEMOGLOBIN 10.9 g/dl (12.0-15.5); LYMPH # 0.6 10^3/uL (1.5-4.5); LYMPH % 6.8 % (24.0-44.0); MEAN CORPUSCULAR HEMOGLOBIN 31.5 pg (27.0-33.0); MEAN CORPUSCULAR HGB CONC 31.5 g/dl (32.0-36.5); MONO # 0.4 10^3/uL (0.0-0.8); MONO % 4.4 % (0.0-5.0); NEUTROPHILS # 7.5 10^3/uL (1.8-7.7); NEUTROPHILS % 87.5 % (36.0-66.0); PLATELET COUNT, AUTOMATED 362 10^3/uL (150-450); RED BLOOD COUNT 3.46 10^6/uL (4.00-5.40); WHITE BLOOD COUNT 8.6 10^3/uL (4.0-10.0)
[2018-07-07 09:10] LABS: ALBUMIN 3.1 GM/DL (3.2-5.2); BILIRUBIN,TOTAL 0.3 MG/DL (0.2-1.0); CALCIUM LEVEL 7.5 MG/DL (8.5-10.1); CREATININE FOR GFR 1.09 MG/DL (0.55-1.30); GLOMERULAR FILTRATION RATE 55.9 (>51); MAGNESIUM LEVEL 1.4 MG/DL (1.8-2.4); POTASSIUM SERUM 3.9 MEQ/L (3.5-5.1)
[2018-07-10 00:06] LABS: CMV QUANT DNA PCR (PLASMA) Negative (Negative)
== END ==
LOC: M LAB 08:13
PROVIDERS: ATTEND Nurse Practitioner Family
DX: I10 Essential (primary) hypertension (principal); D89.9 Disorder involving the immune mechanism, unspecified; Z79.899 Other long term (current) drug therapy; Z94.1 Heart transplant status

== ENCOUNTER → 2018-07-14 | Outpatient (REF) | payer MEDICARE | LOC: M LAB REF 17:45 | PROVIDERS: ATTEND Internal Medicine Advanced Heart Failure and Transplant Cardiology | DX: R19.7 Diarrhea, unspecified (principal); D89.9 Disorder involving the immune mechanism, unspecified; Z79.899 Other long term (current) drug therapy; Z94.1 Heart transplant status ==

== ENCOUNTER → 2018-07-15 | Outpatient (CLI) | payer MEDICARE ==
[2018-07-15 08:53] LABS: BASO % 0.3 % (0.0-1.0); EOS % 0.1 % (0.0-3.0); LYMPH # 0.5 10^3/uL (1.5-4.5); LYMPH % 7.5 % (24.0-44.0); MEAN CORPUSCULAR HEMOGLOBIN 31.8 pg (27.0-33.0); MEAN CORPUSCULAR HGB CONC 32.4 g/dl (32.0-36.5); MEAN CORPUSCULAR VOLUME 98.1 fl (80.0-96.0); MONO # 0.4 10^3/uL (0.0-0.8); MONO % 5.8 % (0.0-5.0); NEUTROPHILS # 5.8 10^3/uL (1.8-7.7); NEUTROPHILS % 83.2 % (36.0-66.0); PLATELET COUNT, AUTOMATED 291 10^3/uL (150-450); RED BLOOD COUNT 3.77 10^6/uL (4.00-5.40)
[2018-07-15 09:30] LABS: ALBUMIN 3.2 GM/DL (3.2-5.2); BILIRUBIN,TOTAL 0.3 MG/DL (0.2-1.0); CALCIUM LEVEL 7.7 MG/DL (8.5-10.1); CREATININE FOR GFR 1.47 MG/DL (0.55-1.30); GLOMERULAR FILTRATION RATE 39.6 (>51); MAGNESIUM LEVEL 1.3 MG/DL (1.8-2.4); POTASSIUM SERUM 3.3 MEQ/L (3.5-5.1); TOTAL PROTEIN 6.2 GM/DL (6.4-8.2)
[2018-07-18 00:08] LABS: CMV QUANT DNA PCR (PLASMA) Negative (Negative)
== END ==
LOC: M LAB 08:21
PROVIDERS: ATTEND Nurse Practitioner Family
DX: D89.9 Disorder involving the immune mechanism, unspecified (principal); E83.111 Hemochromatosis due to repeated red blood cell transfusions; E03.9 Hypothyroidism, unspecified; Z94.1 Heart transplant status

== ENCOUNTER → 2018-07-15 | Outpatient (CLI) | payer MEDICARE ==
[2018-07-15 08:54] LABS: HEMATOCRIT 36.4 % (36.0-47.0); HEMOGLOBIN 11.7 g/dl (12.0-15.5); MEAN CORPUSCULAR HEMOGLOBIN 31.4 pg (27.0-33.0); MEAN CORPUSCULAR HGB CONC 32.1 g/dl (32.0-36.5); MEAN CORPUSCULAR VOLUME 97.6 fl (80.0-96.0); PLATELET COUNT, AUTOMATED 297 10^3/uL (150-450); RED BLOOD COUNT 3.73 10^6/uL (4.00-5.40); WHITE BLOOD COUNT 7.1 10^3/uL (4.0-10.0)
[2018-07-15 09:39] LABS: ALBUMIN 3.3 GM/DL (3.2-5.2); BILIRUBIN,TOTAL 0.3 MG/DL (0.2-1.0); CALCIUM LEVEL 7.7 MG/DL (8.5-10.1); CREATININE FOR GFR 1.48 MG/DL (0.55-1.30); FREE T4 0.86 NG/DL (0.76-1.46); GLOMERULAR FILTRATION RATE 39.3 (>51); PERCENT SATURATION 16.4 % (13.2-45.0); POTASSIUM SERUM 3.4 MEQ/L (3.5-5.1); THYROID STIMULATING HORMONE 5.43 uIU/ML (0.358-3.740); TOTAL PROTEIN 6.2 GM/DL (6.4-8.2)
== END ==
LOC: M LAB 08:14
PROVIDERS: ATTEND Family Medicine
DX: E83.111 Hemochromatosis due to repeated red blood cell transfusions (principal); E03.9 Hypothyroidism, unspecified

== ENCOUNTER 2018-08-01 10:24 | Emergency (ER) | payer MEDICARE ==
[~2018-08-01] VITALS: Ht 170.2 cm; Wt 97.7 kg
[~2018-08-01 10:24] MED LIST changes: -/ACETCOD2T PO; +ACET1TAB15 PO; -DOCU10ELUD PO; +DOCU5LIQ PO; +VITA-183 PO; -VITA1CAP2 PO
[2018-08-01 11:44] LABS: HEMATOCRIT 36.2 % (36.0-47.0); HEMOGLOBIN 11.2 g/dl (12.0-15.5); MEAN CORPUSCULAR HEMOGLOBIN 30.1 pg (27.0-33.0); MEAN CORPUSCULAR HGB CONC 30.9 g/dl (32.0-36.5); MEAN CORPUSCULAR VOLUME 97.3 fl (80.0-96.0); PLATELET COUNT, AUTOMATED 330 10^3/uL (150-450); RED BLOOD COUNT 3.72 10^6/uL (4.00-5.40)
--- NOTE | 2018-08-01 12:08 | REP ---
CHEST X-RAY: Two views. HISTORY: Dyspnea. Cough. COMPARISON STUDY: March 25, 2018. FINDINGS: The previously noted left ventricular assist device is no longer apparent. Similarly, the previously noted pacemaker has been withdrawn. There is increased density behind the heart in the left lower lobe consistent with infiltrate or atelectasis. There was some atelectasis in this distribution at the time of the CT study June 26, 2018. The right lung is clear. Cardiothoracic ratio is 48.6% on today's chest x-ray. Median sternotomy wires are seen. Pulmonary vasculature is not increased. IMPRESSION: Infiltrate versus atelectasis left lower lobe. No evidence of pleural effusion. Mildly prominent heart prior sternotomy wires. The previously noted left ventricular assist device and the previously noted pacemaker have been removed. Electronically Signed by González Lafleur MD 08/01/2018 01:38 P
[2018-08-01 12:15] LABS: INFLUENZA A AMPLIFICATION NEGATIVE (NEGATIVE); INFLUENZA B AMPLIFICATION NEGATIVE (NEGATIVE)
[2018-08-01] MEDS ORDERED: PROG1CAP10 PO (12:18)
[2018-08-01] MEDS ORDERED: MAGN400C PO (12:18)
[2018-08-01] MEDS ORDERED: DIFL200T PO (12:18)
[2018-08-01] MEDS ORDERED: VALC450T PO (12:18)
[2018-08-01] MEDS ORDERED: PRAV40TA2 PO (12:18)
[2018-08-01] MEDS ORDERED: CALC-190 PO (12:18)
[2018-08-01] MEDS ORDERED: DAPS25TA PO (12:18)
[2018-08-01] MEDS ORDERED: CELL250C PO (12:18)
[2018-08-01] MEDS ORDERED: ASPI81TA85 PO (12:18)
[2018-08-01] MEDS ORDERED: DAPS25TA2 PO (12:18)
[2018-08-01] MEDS ORDERED: FURO20TA2 PO (12:18)
[2018-08-01] MEDS ORDERED: AMLO10TA PO (12:18)
[2018-08-01 12:19] LABS: BLOOD UREA NITROGEN 24 MG/DL (7-18); CALCIUM LEVEL 8.2 MG/DL (8.5-10.1); CARBON DIOXIDE LEVEL 32 MEQ/L (21-32); CHLORIDE LEVEL 102 MEQ/L (98-107); CK-MB VALUE MASS < 1.0 NG/ML (<3.6); CPK CREATINE PHOSPHOKINASE 36 U/L (26-192); CREATININE FOR GFR 1.36 MG/DL (0.55-1.30); GLOMERULAR FILTRATION RATE 43.3 (>51); GLUCOSE, FASTING 103 MG/DL (70-100); MB/CK RELATIVE INDEX 2.78 (< OR =4); POTASSIUM SERUM 3.4 MEQ/L (3.5-5.1); SODIUM LEVEL 142 MEQ/L (136-145); TROPONIN I < 0.02 NG/ML (< 0.10)
[2018-08-01 12:22] LABS: EOSINOPHILS 1 % (0-5); LYMPHOCYTES 9 % (16-52); MONOCYTES 6 % (0-8); NEUTROPHILS 82 % (35-75); PLATELET ESTIMATE NORMAL (NORMAL)
[2018-08-01 12:23] LABS: ANISOCYTOSIS 1+
[2018-08-01] MEDS ORDERED: ACETAMINOPHEN TAB 650MG DOSE (2X325MG) PO ONE (13:30)
[2018-08-01 14:00] LABS: C REACTIVE PROTEIN QUANTITATIV < 0.30 MG/DL (0.00-0.30)
[2018-08-01] MEDS ORDERED: VANC125C3 PO (14:26)
[2018-08-01] MEDS ORDERED: LEVO500T3 PO (14:26)
[2018-08-01 15:13] VITALS: BP 125/71
--- NOTE | 2018-08-04 21:29 | ECGEPIP ---
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
== END 2018-08-01 15:30 | disposition home or self-care (01) ==
LOC: M ED 10:24
DX: J18.9 Pneumonia, unspecified organism (principal); R94.31 Abnormal electrocardiogram [ECG] [EKG]; Z79.899 Other long term (current) drug therapy; Z79.82 Long term (current) use of aspirin; Z79.890 Hormone replacement therapy; Z94.1 Heart transplant status; Z87.891 Personal history of nicotine dependence; Z82.49 Family history of ischemic heart disease and other diseases of the circulatory system; Z83.6 Family history of other diseases of the respiratory system; Z88.5 Allergy status to narcotic agent; Z88.2 Allergy status to sulfonamides

== ENCOUNTER → 2018-08-27 | Outpatient (CLI) | payer MEDICARE ==
[~2018-08-27] MED LIST changes: +AMLO10TA PO; +ASPI81TA85 PO; +CALC-190 PO; +CELL250C PO; +DAPS25TA PO; +DAPS25TA2 PO; +DIFL200T PO; +FURO20TA2 PO; +LEVO500T3 PO; +MAGN400C PO; +PRAV40TA2 PO; +PROG1CAP10 PO; +VALC450T PO; +VANC125C3 PO
[2018-08-27 12:40] LABS: HEMATOCRIT 34.1 % (36.0-47.0); HEMOGLOBIN 10.6 g/dl (12.0-15.5); MEAN CORPUSCULAR HGB CONC 31.1 g/dl (32.0-36.5); MEAN CORPUSCULAR VOLUME 93.4 fl (80.0-96.0); PLATELET COUNT, AUTOMATED 323 10^3/uL (150-450); RED BLOOD COUNT 3.65 10^6/uL (4.00-5.40); WHITE BLOOD COUNT 6.9 10^3/uL (4.0-10.0)
[2018-08-27 13:02] LABS: BLOOD UREA NITROGEN 19 MG/DL (7-18); C REACTIVE PROTEIN QUANTITATIV < 0.30 MG/DL (0.00-0.30); CALCIUM LEVEL 8.2 MG/DL (8.5-10.1); CARBON DIOXIDE LEVEL 32 MEQ/L (21-32); CHLORIDE LEVEL 101 MEQ/L (98-107); CREATININE FOR GFR 1.61 MG/DL (0.55-1.30); GLOMERULAR FILTRATION RATE 35.6 (>51); GLUCOSE, FASTING 122 MG/DL (70-100); POTASSIUM SERUM 4.1 MEQ/L (3.5-5.1); SODIUM LEVEL 139 MEQ/L (136-145)
[2018-08-27 13:25] LABS: BASOPHILS 1 % (0-4); LYMPHOCYTES 11 % (16-52); MONOCYTES 4 % (0-8); NEUTROPHILS 75 % (35-75)
[2018-08-27 13:26] LABS: ANISOCYTOSIS 2+; POLYCHROMASIA 1+
[2018-08-27 13:27] LABS: PLATELET CLUMPS SMALL AMT; PLATELET ESTIMATE NORMAL (NORMAL)
== END ==
LOC: M LAB 11:49
PROVIDERS: ATTEND Nurse Practitioner Acute Care
DX: Z94.1 Heart transplant status (principal); Z79.899 Other long term (current) drug therapy; R19.7 Diarrhea, unspecified; D72.825 Bandemia

== ENCOUNTER 2018-09-11 10:32 | Outpatient (RCR) | payer MEDICARE ==
--- NOTE | 2018-09-04 10:27 | CARECAPL ---
Assessment Account #s: Initial Assessment General Diagnoses: CHF (HEART TRANSPLANT) Date of event: September 04, 2018 Physician: Umesh Kelsey Allergies: Coded Allergies: Sulfa (Sulfonamide Antibiotics) (Verified Allergy, Intermediate, RASH AND HIVES, 08/01/18) morphine (Verified Adverse Reaction, Mild, lethargy, 08/01/18) Date Entered Program: September 04, 2018 Risk strat for cardiac event: High Exercise Date: September 04, 2018 Assessment: Initial Assessment Exercise Prescription Plan TO EDUCATE AND BUILD ENDURANCE THROUGH MONITORED EXERCISE Modalities initiated: Cardio-Strider (WILL ADD), Nustep (WILL ADD), Arm Aerome ter (WILL ADD), Dumbells (WILL ADD), Recumbent Bike (WILL ADD) Frequency: 3 Duration (Minutes) 30-60 minutes total exercise a day. 10-12 work intervals in minutes. 5 MIN NEEDED rest intervals in minutes. Functional Capacity Goal Sustained Metabolic Equivalent of a task (MET) goal of 2.0-3.0 for 15-20 minutes. Intensity: 3-Moderate Progression (METS) Increase by: 0.5 METS every: 3-5 sessions Angina with ex: No Target Heart Rate 101-134 AGE PREDICTED Resistance Training: Yes Weight (pounds): 1 Reps: 8-12 Hypertension: Yes Hypertension controlled with: Medication Resting 141/87 Medications Scheduled Acetaminophen (Tylenol), 650 MG PO Q4HP, (Reported) Amlodipine Besylate (Norvasc), 1 TAB PO DAILY, (Reported) Aspirin (Aspir 81), 1 TAB PO DAILY, (Reported) Budesonide/Formoterol (Symbicort 160-4.5 Mcg Inhaler), 2 PUFF INH BID, (Report ed) Calcium Carbonate/Vitamin D3 (Calcium 1,000 + D3 Caplet), 1 TAB PO DAILY, (Reported) Dapsone (Dapsone), 2 TAB PO DAILY, (Reported) Dapsone (Dapsone), 2 TAB PO DAILY, (Reported) Docusate Sodium (Colace), 100 MG PO BID, (Reported) Fluconazole (Diflucan), 200 MG PO DAILY, (Reported) Furosemide (Furosemide), 1 TAB PO BID, (Reported) Levofloxacin (Levofloxacin), 500 MG PO DAILY Levothyroxine Sodium (Levothyroxine Sodium), 50 MCG PO DAILY, (Reported) Magnesium Oxide (Magnesium), 1 CAP PO BID, (Reported) Multivitamin (Multivitamins), 1 TAB PO DAILY, (Reported) Mycophenolate Mofetil (Cellcept), 1,250 MG PO BID, (Reported) Pantoprazole Sodium (Protonix), 40 MG PO BID, (Reported) Pravastatin Sodium (Pravastatin Sodium), 40 MG PO DAILY, (Reported) Prednisone (Prednisone), 60 MG PO DAILY Tacrolimus (Prograf), 3 CAP PO BID, (Reported) Trazodone HCl (Trazodone HCl), 100 MG PO QHS, (Reported) Valganciclovir HCl (Valcyte), 450 MG PO BID, (Reported) Vancomycin Hcl (Vancomycin HCl), 125 MG PO QID Venlafaxine HCl (Venlafaxine HCl), 37.5 MG PO DAILY, (Reported) Miscellaneous Medications Cyanocobalamin (Vitamin B 12), 1,000 MCG PO, (Reported) Current BP 136/82 Intervention Resistance Training: Yes Education: Self pulse, Ex safety, S/S to report, Low NA diet, BP medication, RPE Scale, Equipment orientation, warm up/cool down, Understand BP, Physical Active Target Goals Individual exercise Rx (1) BP 140/90 or 130/80 if DM or CKD (1) Aerobic active 30+min 5 days per week (1) Nutrition Date: September 04, 2018 Assessment: Initial Assessment Lipid- med/supplement PRAVASTATIN Med Change: No Diabetes Diabetes: No Monitor Blood Sugar at home: No Medication Change: No Weight Management Weight (lbs): 223.4 Height (inches): 63.5 Waist Circumference (Inches): 45.5 BMI: 38.9 Weight goal: 170 Special Diet: low salt, low-fat Vitamin/Supplements: Multivitamin, Vitamin B Alcohol: none Diet Access Tool: Rate your plate Score: 59 Current Weight (pounds): 223.4 Weight Goal 170 Intervention 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 Nurse/patient discussion: Yes Dietary Goals MAKE HEART HEALTHY CHOICES Diet Class: Yes Referral to Diabetes education: No Referral to lipid clinic: No Referral to weight mangement p: No Education Eating Healthy Target goal LDL-C<100 if triglycerides are >200 Non-HDL-C should be <130 (1) LDL-C<70 for high risk patients (4) HbA1c<7% (1) BMI<25 Waist cir<40in M/<35in F (1) Education Date: September 04, 2018 Assessment: Initial Assessment Learning Barriers: ready Knowledge Test Score: 7 Family Support: Yes Tobacco use: No Quit: >6 months Tobacco Use Date quit: August 27, 2013 Smokeless tobacco: No Intervention Referral to smoking cessation: No Individual education and couns: Yes Tobacco Adjunct: No Education class schedule given: No Attended education classes: No Education: tobacco triggers, CAD, Risk factors, med compliance, cardiac A&P, Angina S/S, Sexuality Target Goals Complete cessation of tobacco use (1). Psychosocial Date: September 04, 2018 Assessment: Initial Assessment Psych Test (Initial/Discharge) Tool Used: CESD (DR. MIHAI ROBERTS) Score: 27 Intervention Physician Consult: No Physician Referral: No Psychotropic medication TRAZODONE AND EFFEXOR Med Change: No Stress Management Class: No Uses Stress Management Skills: Yes Education Education: Coping Techniques, S/S depression, Relaxation Techniques Target Goal Assess presence or absence of depression using a valid screening tool (1). Maximize coping skills (2). Positive support system (2). Patient/Program Goal Preventative Medication: Yes Aspirin, Yes Statin/OTR lipid Lowering Fall Risk Assess: Yes (USES WALKER FOR LONG DISTANCES) Assisstive Device: walker Provider Assessment Session Number: 1 Provider Assessment: Proceed with rehab Watson Martin RN September 04, 2018 10:27
[~2018-09-11 10:32] MED LIST changes: -TRAZ-160 PO; +TRAZ-252 PO
--- NOTE | 2018-09-24 14:24 | CARECAPL ---
Assessment Account #s: Re-Assessment I (Heart Transplant) General Date of event: May 27, 2018 Physician: Umesh Kelsey Allergies: Coded Allergies: Sulfa (Sulfonamide Antibiotics) (Verified Allergy, Intermediate, RASH AND HIVES, 08/01/18) morphine (Verified Adverse Reaction, Mild, lethargy, 08/01/18) Date Entered Program: September 04, 2018 Risk strat for cardiac event: High Exercise Date: September 24, 2018 Assessment: Re-Assessment I Exercise Prescription Plan To educate about cardiac disease and to build endurance and strength through a monitored exercise program Modalities initiated: Nustep, Arm Aerometer, Dumbells, Recumbent Bike Frequency: 1-2 Duration (Minutes) 30-60 minutes total exercise a day. 5-10 work intervals in minutes. as needed - rest intervals in minutes. Functional Capacity Goal Sustained Metabolic Equivalent of a task (MET) goal of 3.0-4.0 for 15-20 minutes. Intensity: 3-Moderate Progression (METS) Increase by: 0.5 METS every: 2 sessions Angina with ex: No Target Heart Rate 101-134 age predictor Resistance Training: Yes Weight (pounds): 2 Reps: 6-8 Medications Scheduled Acetaminophen (Tylenol), 650 MG PO Q4HP, (Reported) Amlodipine Besylate (Norvasc), 1 TAB PO DAILY, (Reported) Aspirin (Aspir 81), 1 TAB PO DAILY, (Reported) Budesonide/Formoterol (Symbicort 160-4.5 Mcg Inhaler), 2 PUFF INH BID, (Reported) Calcium Carbonate/Vitamin D3 (Calcium 1,000 + D3 Caplet), 1 TAB PO DAILY, (Reported) Dapsone (Dapsone), 2 TAB PO DAILY, (Reported) Dapsone (Dapsone), 2 TAB PO DAILY, (Reported) Docusate Sodium (Colace), 100 MG PO BID, (Reported) Fluconazole (Diflucan), 200 MG PO DAILY, (Reported) Furosemide (Furosemide), 1 TAB PO BID, (Reported) Levofloxacin (Levofloxacin), 500 MG PO DAILY Levothyroxine Sodium (Levothyroxine Sodium), 50 MCG PO DAILY, (Reported) Magnesium Oxide (Magnesium), 1 CAP PO BID, (Reported) Multivitamin (Multivitamins), 1 TAB PO DAILY, (Reported) Mycophenolate Mofetil (Cellcept), 1,250 MG PO BID, (Reported) Pantoprazole Sodium (Protonix), 40 MG PO BID, (Reported) Pravastatin Sodium (Pravastatin Sodium), 40 MG PO DAILY, (Reported) Prednisone (Prednisone), 60 MG PO DAILY Tacrolimus (Prograf), 3 CAP PO BID, (Reported) Trazodone HCl (Trazodone HCl), 100 MG PO QHS, (Reported) Valganciclovir HCl (Valcyte), 450 MG PO BID, (Reported) Vancomycin Hcl (Vancomycin HCl), 125 MG PO QID Venlafaxine HCl (Venlafaxine HCl), 37.5 MG PO DAILY, (Reported) Miscellaneous Medications Cyanocobalamin (Vitamin B 12), 1,000 MCG PO, (Reported) Current BP 110/80 Med Change: No Education Goals Met: No (progressing toward goals) Target Goals Individual exercise Rx (1) BP 140/90 or 130/80 if DM or CKD (1) Aerobic active 30+min 5 days per week (1) Nutrition Date: September 24, 2018 Assessment: Re-Assessment I Med Change: No Medication Change: No Current Weight (pounds): 222.4 Weight Goal 170 Intervention Nurse/patient discussion: Yes Diet Class: No (will see this admission) Education Eating Healthy Education Goals Met: No (progressing toward goals) Target goal LDL-C<100 if triglycerides are >200 Non-HDL-C should be <130 (1) LDL-C<70 for high risk patients (4) HbA1c<7% (1) BMI<25 Waist cir<40in M/<35in F (1) Education Date: September 24, 2018 Assessment: Re-Assessment I Family Support: Yes Education Goals Met: No (progressing toward goals) Target Goals Complete cessation of tobacco use (1). Psychosocial Date: September 24, 2018 Assessment: Re-Assessment I Stress Management Class: Yes Uses Stress Management Skills: Yes Education Education: Coping Techniques, S/S depression, Relaxation Techniques Education Goals Met: No (progressing toward goals) Target Goal Assess presence or absence of depression using a valid screening tool (1). Maximize coping skills (2). Positive support system (2). Provider Assessment Session Number: 2 Provider Assessment: Proceed with rehab (pt in hospital at this time ) Glenys Coker RN September 24, 2018 14:24
== END 2018-09-26 ==
LOC: M CR 10:32
PROVIDERS: ATTEND Internal Medicine Advanced Heart Failure and Transplant Cardiology
DX: Z94.1 Heart transplant status (principal)

== ENCOUNTER → 2018-09-12 | Outpatient (CLI) | payer MEDICARE ==
[~2018-09-12] MED LIST changes: +TRAZ-160 PO; -TRAZ-252 PO
[2018-09-12 07:45] LABS: HEMOGLOBIN 10.1 g/dl (12.0-15.5); MEAN CORPUSCULAR HEMOGLOBIN 29.6 pg (27.0-33.0); MEAN CORPUSCULAR HGB CONC 30.6 g/dl (32.0-36.5); MEAN CORPUSCULAR VOLUME 96.8 fl (80.0-96.0); PLATELET COUNT, AUTOMATED 293 10^3/uL (150-450); RED BLOOD COUNT 3.41 10^6/uL (4.00-5.40); WHITE BLOOD COUNT 7.4 10^3/uL (4.0-10.0)
[2018-09-12 08:07] LABS: ALBUMIN 3.2 GM/DL (3.2-5.2); BILIRUBIN,TOTAL 0.3 MG/DL (0.2-1.0); CALCIUM LEVEL 7.5 MG/DL (8.5-10.1); CREATININE FOR GFR 1.39 MG/DL (0.55-1.30); GLOMERULAR FILTRATION RATE 42.2 (>51); MAGNESIUM LEVEL 1.3 MG/DL (1.8-2.4); POTASSIUM SERUM 3.2 MEQ/L (3.5-5.1); TOTAL PROTEIN 6.1 GM/DL (6.4-8.2)
[2018-09-12 08:26] LABS: ANISOCYTOSIS 1+; BASOPHILS 1 % (0-4); LYMPHOCYTES 15 % (16-52); MONOCYTES 4 % (0-8); NEUTROPHILS 73 % (35-75)
[2018-09-12 08:27] LABS: PLATELET ESTIMATE NORMAL (NORMAL)
[2018-09-19 08:06] LABS: CMV QUANT DNA PCR (PLASMA) Negative (Negative)
== END ==
LOC: M LAB 07:13
PROVIDERS: ATTEND Nurse Practitioner Family
DX: Z94.1 Heart transplant status (principal); Z79.899 Other long term (current) drug therapy; D89.9 Disorder involving the immune mechanism, unspecified; I10 Essential (primary) hypertension

== ENCOUNTER 2018-10-01 08:20 | Outpatient (RCR) | payer MEDICARE ==
[~2018-10-01 08:20] MED LIST changes: -TRAZ-160 PO; +TRAZ-252 PO
--- NOTE | 2018-10-27 13:38 | CARECAPL ---
Assessment Account #s: Re-Assessment II (heart transplant) General Date of event: May 27, 2018 Physician: Umesh Kelsey Allergies: Coded Allergies: Sulfa (Sulfonamide Antibiotics) (Verified Allergy, Intermediate, RASH AND HIVES, 08/01/18) morphine (Verified Adverse Reaction, Mild, lethargy, 08/01/18) Date Entered Program: September 04, 2018 Risk strat for cardiac event: High Exercise Prescription Duration (Minutes) minutes total exercise a day. work intervals in minutes. rest intervals in minutes. Functional Capacity Goal Sustained Metabolic Equivalent of a task (MET) goal of for minutes. Progression (METS) Increase by: METS every: sessions Medications Scheduled Acetaminophen (Tylenol), 650 MG PO Q4HP, (Reported) Amlodipine Besylate (Norvasc), 1 TAB PO DAILY, (Reported) Aspirin (Aspir 81), 1 TAB PO DAILY, (Reported) Budesonide/Formoterol (Symbicort 160-4.5 Mcg Inhaler), 2 PUFF INH BID, (Reported) Calcium Carbonate/Vitamin D3 (Calcium 1,000 + D3 Caplet), 1 TAB PO DAILY, (Reported) Dapsone (Dapsone), 2 TAB PO DAILY, (Reported) Dapsone (Dapsone), 2 TAB PO DAILY, (Reported) Docusate Sodium (Colace), 100 MG PO BID, (Reported) Fluconazole (Diflucan), 200 MG PO DAILY, (Reported) Furosemide (Furosemide), 1 TAB PO BID, (Reported) Levofloxacin (Levofloxacin), 500 MG PO DAILY Levothyroxine Sodium (Levothyroxine Sodium), 50 MCG PO DAILY, (Reported) Magnesium Oxide (Magnesium), 1 CAP PO BID, (Reported) Multivitamin (Multivitamins), 1 TAB PO DAILY, (Reported) Mycophenolate Mofetil (Cellcept), 1,250 MG PO BID, (Reported) Pantoprazole Sodium (Protonix), 40 MG PO BID, (Reported) Pravastatin Sodium (Pravastatin Sodium), 40 MG PO DAILY, (Reported) Prednisone (Prednisone), 60 MG PO DAILY Tacrolimus (Prograf), 3 CAP PO BID, (Reported) Trazodone HCl (Trazodone HCl), 100 MG PO QHS, (Reported) Valganciclovir HCl (Valcyte), 450 MG PO BID, (Reported) Vancomycin Hcl (Vancomycin HCl), 125 MG PO QID Venlafaxine HCl (Venlafaxine HCl), 37.5 MG PO DAILY, (Reported) Miscellaneous Medications Cyanocobalamin (Vitamin B 12), 1,000 MCG PO, (Reported) Education Goals Met: No (has not attended program since 10/01/2018- total of 3 sessions since 09/04/2018) Target Goals Individual exercise Rx (1) BP 140/90 or 130/80 if DM or CKD (1) Aerobic active 30+min 5 days per week (1) Target goal LDL-C<100 if triglycerides are >200 Non-HDL-C should be <130 (1) LDL-C<70 for high risk patients (4) HbA1c<7% (1) BMI<25 Waist cir<40in M/<35in F (1) Target Goals Complete cessation of tobacco use (1). Target Goal Assess presence or absence of depression using a valid screening tool (1). Maximize coping skills (2). Positive support system (2). Provider Assessment Session Number: 3 Provider Assessment: No changes (has not attended program since 10/01/2018 total of 3 session total) Glenys Coker RN Oct 27, 2018 13:38
== END 2018-10-26 ==
LOC: M CR 08:20
PROVIDERS: ATTEND Internal Medicine Advanced Heart Failure and Transplant Cardiology
DX: Z94.1 Heart transplant status (principal)

== ENCOUNTER → 2018-10-07 | Outpatient (REF) | payer MEDICARE | LOC: M LAB REF 13:44 | PROVIDERS: ATTEND Internal Medicine Advanced Heart Failure and Transplant Cardiology | DX: A08.11 Acute gastroenteropathy due to Norwalk agent (principal); Z94.1 Heart transplant status ==

== ENCOUNTER → 2018-10-13 | Outpatient (REF) | payer MEDICARE | LOC: M LAB REF 13:27 | PROVIDERS: ATTEND Internal Medicine Advanced Heart Failure and Transplant Cardiology | DX: Z94.1 Heart transplant status (principal); A08.11 Acute gastroenteropathy due to Norwalk agent ==

== ENCOUNTER → 2018-10-20 | Outpatient (REF) | payer MEDICARE | LOC: M LAB REF 10:05 | PROVIDERS: ATTEND Rehabilitation Practitioner | DX: A08.11 Acute gastroenteropathy due to Norwalk agent (principal); Z94.1 Heart transplant status ==

== ENCOUNTER → 2018-10-28 | Outpatient (CLI) | payer MEDICARE | LOC: M LAB 08:13 | PROVIDERS: ATTEND Rehabilitation Practitioner | DX: Z94.1 Heart transplant status (principal); D89.9 Disorder involving the immune mechanism, unspecified; Z79.899 Other long term (current) drug therapy; I10 Essential (primary) hypertension ==

== ENCOUNTER → 2018-10-28 | Outpatient (CLI) | payer MEDICARE ==
[2018-10-28 08:42] LABS: BASO % 0.3 % (0.0-1.0); HEMATOCRIT 36.5 % (36.0-47.0); LYMPH # 0.6 10^3/uL (1.5-4.5); LYMPH % 14.8 % (24.0-44.0); MEAN CORPUSCULAR HEMOGLOBIN 28.8 pg (27.0-33.0); MEAN CORPUSCULAR HGB CONC 30.1 g/dl (32.0-36.5); MEAN CORPUSCULAR VOLUME 95.5 fl (80.0-96.0); MONO # 0.5 10^3/uL (0.0-0.8); MONO % 12.7 % (0.0-5.0); NEUTROPHILS # 2.7 10^3/uL (1.8-7.7); NEUTROPHILS % 70.4 % (36.0-66.0); PLATELET COUNT, AUTOMATED 215 10^3/uL (150-450); RED BLOOD COUNT 3.82 10^6/uL (4.00-5.40); WHITE BLOOD COUNT 3.9 10^3/uL (4.0-10.0)
[2018-10-28 09:42] LABS: CALCIUM LEVEL 8.3 MG/DL (8.5-10.1); CREATININE FOR GFR 1.04 MG/DL (0.55-1.30); POTASSIUM SERUM 3.3 MEQ/L (3.5-5.1)
[2018-10-28 09:43] LABS: ALBUMIN 3.5 GM/DL (3.2-5.2); BILIRUBIN,TOTAL 0.3 MG/DL (0.2-1.0); MAGNESIUM LEVEL 1.7 MG/DL (1.8-2.4); TOTAL PROTEIN 6.5 GM/DL (6.4-8.2)
[2018-11-01 00:08] LABS: CMV QUANT DNA PCR (PLASMA) Negative (Negative)
== END ==
LOC: M LAB 08:07
PROVIDERS: ATTEND Nurse Practitioner Family
DX: D89.9 Disorder involving the immune mechanism, unspecified (principal); Z79.899 Other long term (current) drug therapy; Z94.1 Heart transplant status; I10 Essential (primary) hypertension

== ENCOUNTER → 2018-11-03 | Outpatient (REF) | payer MEDICARE | LOC: M LAB REF 14:36 | PROVIDERS: ATTEND Internal Medicine Advanced Heart Failure and Transplant Cardiology | DX: A08.11 Acute gastroenteropathy due to Norwalk agent (principal); Z94.1 Heart transplant status ==

== ENCOUNTER → 2018-11-11 | Outpatient (CLI) | payer MEDICARE ==
[2018-11-11 09:29] LABS: HEMATOCRIT 36.4 % (36.0-47.0); LYMPH # 0.7 10^3/uL (1.5-4.5); LYMPH % 22.5 % (24.0-44.0); MEAN CORPUSCULAR HEMOGLOBIN 28.6 pg (27.0-33.0); MEAN CORPUSCULAR HGB CONC 30.2 g/dl (32.0-36.5); MEAN CORPUSCULAR VOLUME 94.8 fl (80.0-96.0); MONO # 0.5 10^3/uL (0.0-0.8); MONO % 14.7 % (0.0-5.0); NEUTROPHILS # 1.9 10^3/uL (1.8-7.7); NEUTROPHILS % 61.5 % (36.0-66.0); PLATELET COUNT, AUTOMATED 267 10^3/uL (150-450); RED BLOOD COUNT 3.84 10^6/uL (4.00-5.40); WHITE BLOOD COUNT 3.1 10^3/uL (4.0-10.0)
[2018-11-11 09:58] LABS: ALBUMIN 3.4 GM/DL (3.2-5.2); BILIRUBIN,TOTAL 0.3 MG/DL (0.2-1.0); CALCIUM LEVEL 8.4 MG/DL (8.5-10.1); CREATININE FOR GFR 1.03 MG/DL (0.55-1.30); GLOMERULAR FILTRATION RATE 59.7 (>51); MAGNESIUM LEVEL 1.5 MG/DL (1.8-2.4); POTASSIUM SERUM 3.6 MEQ/L (3.5-5.1); TOTAL PROTEIN 6.3 GM/DL (6.4-8.2)
[2018-11-14 00:07] LABS: CMV QUANT DNA PCR (PLASMA) Negative (Negative)
== END ==
LOC: M LAB 08:23
PROVIDERS: ATTEND Nurse Practitioner Acute Care
DX: Z94.1 Heart transplant status (principal); D89.9 Disorder involving the immune mechanism, unspecified; Z79.899 Other long term (current) drug therapy

== ENCOUNTER → 2018-11-24 | Outpatient (CLI) | payer MEDICARE ==
[2018-11-24 08:47] LABS: BASO % 0.3 % (0.0-1.0); HEMATOCRIT 33.8 % (36.0-47.0); HEMOGLOBIN 10.4 g/dl (12.0-15.5); LYMPH # 0.6 10^3/uL (1.5-4.5); LYMPH % 14.8 % (24.0-44.0); MEAN CORPUSCULAR HEMOGLOBIN 28.1 pg (27.0-33.0); MEAN CORPUSCULAR HGB CONC 30.8 g/dl (32.0-36.5); MEAN CORPUSCULAR VOLUME 91.4 fl (80.0-96.0); MONO # 0.5 10^3/uL (0.0-0.8); MONO % 13.8 % (0.0-5.0); NEUTROPHILS # 2.7 10^3/uL (1.8-7.7); NEUTROPHILS % 69.8 % (36.0-66.0); PLATELET COUNT, AUTOMATED 224 10^3/uL (150-450); WHITE BLOOD COUNT 3.8 10^3/uL (4.0-10.0)
[2018-11-24 09:15] LABS: ALBUMIN 3.1 GM/DL (3.2-5.2); ALT/SGPT 12 U/L (12-78); BILIRUBIN,TOTAL 0.4 MG/DL (0.2-1.0); BLOOD UREA NITROGEN 10 MG/DL (7-18); CARBON DIOXIDE LEVEL 34 MEQ/L (21-32); CHLORIDE LEVEL 105 MEQ/L (98-107); CREATININE FOR GFR 0.94 MG/DL (0.55-1.30); GLOMERULAR FILTRATION RATE > 60.0 (>51); GLUCOSE, FASTING 74 MG/DL (70-100); MAGNESIUM LEVEL 1.7 MG/DL (1.8-2.4); POTASSIUM SERUM 3.7 MEQ/L (3.5-5.1); SODIUM LEVEL 144 MEQ/L (136-145); TOTAL PROTEIN 6.3 GM/DL (6.4-8.2); TRIGLYCERIDES LEVEL 80 MG/DL (<150)
[2018-11-27 00:06] LABS: CMV QUANT DNA PCR (PLASMA) Negative (Negative)
== END ==
LOC: M LAB 08:03
PROVIDERS: ATTEND Nurse Practitioner Acute Care
DX: Z79.899 Other long term (current) drug therapy (principal); Z94.1 Heart transplant status

== ENCOUNTER → 2018-12-18 | Outpatient (CLI) | payer MEDICARE ==
[2018-12-18 07:11] LABS: BASO % 0.4 % (0.0-1.0); EOS % 1.3 % (0.0-3.0); HEMOGLOBIN 11.8 g/dl (12.0-15.5); LYMPH # 0.7 10^3/uL (1.5-4.5); LYMPH % 29.8 % (24.0-44.0); MEAN CORPUSCULAR HEMOGLOBIN 28.8 pg (27.0-33.0); MEAN CORPUSCULAR HGB CONC 31.9 g/dl (32.0-36.5); MEAN CORPUSCULAR VOLUME 90.2 fl (80.0-96.0); MONO # 0.4 10^3/uL (0.0-0.8); MONO % 14.9 % (0.0-5.0); NEUTROPHILS # 1.3 10^3/uL (1.8-7.7); NEUTROPHILS % 53.6 % (36.0-66.0); PLATELET COUNT, AUTOMATED 187 10^3/uL (150-450); WHITE BLOOD COUNT 2.4 10^3/uL (4.0-10.0)
[2018-12-18 07:37] LABS: ALBUMIN 3.3 GM/DL (3.2-5.2); ALT/SGPT 14 U/L (12-78); BILIRUBIN,TOTAL 0.3 MG/DL (0.2-1.0); BLOOD UREA NITROGEN 10 MG/DL (7-18); CALCIUM LEVEL 8.4 MG/DL (8.5-10.1); CARBON DIOXIDE LEVEL 30 MEQ/L (21-32); CHLORIDE LEVEL 107 MEQ/L (98-107); CREATININE FOR GFR 0.83 MG/DL (0.55-1.30); GLOMERULAR FILTRATION RATE > 60.0 (>51); GLUCOSE, FASTING 96 MG/DL (70-100); MAGNESIUM LEVEL 1.6 MG/DL (1.8-2.4); POTASSIUM SERUM 3.6 MEQ/L (3.5-5.1); SODIUM LEVEL 143 MEQ/L (136-145); TOTAL PROTEIN 6.5 GM/DL (6.4-8.2); TRIGLYCERIDES LEVEL 74 MG/DL (<150)
[2018-12-21 00:06] LABS: CMV QUANT DNA PCR (PLASMA) Negative (Negative)
== END ==
LOC: M LAB 06:45
PROVIDERS: ATTEND Nurse Practitioner Acute Care
DX: Z94.1 Heart transplant status (principal); D89.9 Disorder involving the immune mechanism, unspecified; Z79.899 Other long term (current) drug therapy

== ENCOUNTER → 2018-12-22 | Outpatient (CLI) | payer MEDICARE ==
[2018-12-22 09:09] LABS: BASO % 0.4 % (0.0-1.0); EOS % 0.8 % (0.0-3.0); HEMATOCRIT 39.7 % (36.0-47.0); HEMOGLOBIN 12.6 g/dl (12.0-15.5); LYMPH # 0.4 10^3/uL (1.5-4.5); LYMPH % 16.1 % (24.0-44.0); MEAN CORPUSCULAR HEMOGLOBIN 27.9 pg (27.0-33.0); MEAN CORPUSCULAR HGB CONC 31.7 g/dl (32.0-36.5); MONO # 0.4 10^3/uL (0.0-0.8); MONO % 16.5 % (0.0-5.0); NEUTROPHILS # 1.6 10^3/uL (1.8-7.7); NEUTROPHILS % 65.8 % (36.0-66.0); PLATELET COUNT, AUTOMATED 206 10^3/uL (150-450); RED BLOOD COUNT 4.51 10^6/uL (4.00-5.40); WHITE BLOOD COUNT 2.5 10^3/uL (4.0-10.0)
[2018-12-22 09:40] LABS: ALBUMIN 3.4 GM/DL (3.2-5.2); ALT/SGPT 17 U/L (12-78); BILIRUBIN,TOTAL 0.3 MG/DL (0.2-1.0); BLOOD UREA NITROGEN 10 MG/DL (7-18); CALCIUM LEVEL 8.6 MG/DL (8.5-10.1); CARBON DIOXIDE LEVEL 30 MEQ/L (21-32); CHLORIDE LEVEL 103 MEQ/L (98-107); CREATININE FOR GFR 0.76 MG/DL (0.55-1.30); GLOMERULAR FILTRATION RATE > 60.0 (>51); GLUCOSE, FASTING 75 MG/DL (70-100); MAGNESIUM LEVEL 1.5 MG/DL (1.8-2.4); POTASSIUM SERUM 3.8 MEQ/L (3.5-5.1); SODIUM LEVEL 142 MEQ/L (136-145); TOTAL PROTEIN 6.7 GM/DL (6.4-8.2); TRIGLYCERIDES LEVEL 101 MG/DL (<150)
[2018-12-24 11:14] LABS: SIROLIMUS (RAPAMUNE) OTHER LAB SEE SEPARATE REPORT
[2018-12-26 00:06] LABS: CMV QUANT DNA PCR (PLASMA) Negative (Negative)
== END ==
LOC: M LAB 08:12
PROVIDERS: ATTEND Nurse Practitioner Acute Care
DX: Z79.899 Other long term (current) drug therapy (principal); Z94.1 Heart transplant status

== ENCOUNTER 2018-12-24 11:41 | Outpatient (RCR) | payer MEDICARE | END 2018-12-27 | LOC: M PT 11:41 | PROVIDERS: ATTEND Nurse Practitioner Acute Care | DX: I89.0 Lymphedema, not elsewhere classified (principal) ==

== ENCOUNTER 2018-12-30 14:40 | Outpatient (RCR) | payer MEDICARE | END 2019-01-26 | LOC: M PT 14:40 | PROVIDERS: ATTEND Nurse Practitioner Acute Care | DX: I89.0 Lymphedema, not elsewhere classified (principal) ==

== ENCOUNTER → 2018-12-30 | Outpatient (CLI) | payer MEDICARE ==
[2018-12-30 09:44] LABS: BASO % 0.4 % (0.0-1.0); EOS % 1.1 % (0.0-3.0); LYMPH # 0.5 10^3/uL (1.5-5.0); LYMPH % 18.6 % (24.0-44.0); MEAN CORPUSCULAR HEMOGLOBIN 28.5 pg (27.0-33.0); MEAN CORPUSCULAR HGB CONC 31.7 g/dl (32.0-36.5); MEAN CORPUSCULAR VOLUME 89.9 fl (80.0-96.0); MONO # 0.4 10^3/uL (0.0-0.8); MONO % 14.1 % (0.0-5.0); NEUTROPHILS # 1.8 10^3/uL (1.5-8.5); NEUTROPHILS % 65.8 % (36.0-66.0); PLATELET COUNT, AUTOMATED 207 10^3/uL (150-450); RED BLOOD COUNT 4.56 10^6/uL (4.00-5.40); WHITE BLOOD COUNT 2.7 10^3/uL (4.0-10.0)
[2018-12-30 10:25] LABS: ALBUMIN 3.4 GM/DL (3.2-5.2); ALT/SGPT 23 U/L (12-78); BILIRUBIN,TOTAL 0.5 MG/DL (0.2-1.0); BLOOD UREA NITROGEN 11 MG/DL (7-18); CALCIUM LEVEL 8.7 MG/DL (8.5-10.1); CARBON DIOXIDE LEVEL 32 MEQ/L (21-32); CHLORIDE LEVEL 106 MEQ/L (98-107); CREATININE FOR GFR 0.79 MG/DL (0.55-1.30); GLOMERULAR FILTRATION RATE > 60.0 (>51); GLUCOSE, FASTING 72 MG/DL (70-100); MAGNESIUM LEVEL 1.8 MG/DL (1.8-2.4); SODIUM LEVEL 144 MEQ/L (136-145); TOTAL PROTEIN 6.8 GM/DL (6.4-8.2); TRIGLYCERIDES LEVEL 112 MG/DL (<150)
[2019-01-04 10:40] LABS: CMV QUANT DNA PCR (PLASMA) Negative (Negative); SIROLIMUS (RAPAMUNE) LABCORP 1.6 ng/mL (3.0-20.0)
== END ==
LOC: M LAB 08:15
PROVIDERS: ATTEND Registered Nurse
DX: Z51.81 Encounter for therapeutic drug level monitoring (principal); Z79.899 Other long term (current) drug therapy; Z94.1 Heart transplant status; D89.9 Disorder involving the immune mechanism, unspecified; R79.0 Abnormal level of blood mineral; R53.83 Other fatigue

== ENCOUNTER → 2019-01-12 | Outpatient (CLI) | payer MEDICARE ==
[~2019-01-12] MED LIST changes: +ALPR0.5T3; -DOXY100T16 PO; +DOXY100T27 PO; +HYDR200T3; +LISI10TA4; +SIRO1TAB; +TACR1CAP3
[2019-01-12 09:04] LABS: BASO % 0.4 % (0.0-1.0); EOS % 1.3 % (0.0-3.0); HEMATOCRIT 39.7 % (36.0-47.0); HEMOGLOBIN 13.1 g/dl (12.0-15.5); LYMPH # 0.5 10^3/uL (1.5-5.0); LYMPH % 22.9 % (24.0-44.0); MEAN CORPUSCULAR HEMOGLOBIN 28.2 pg (27.0-33.0); MEAN CORPUSCULAR VOLUME 85.4 fl (80.0-96.0); MONO # 0.4 10^3/uL (0.0-0.8); MONO % 16.5 % (0.0-5.0); NEUTROPHILS # 1.4 10^3/uL (1.5-8.5); NEUTROPHILS % 58.9 % (36.0-66.0); PLATELET COUNT, AUTOMATED 220 10^3/uL (150-450); RED BLOOD COUNT 4.65 10^6/uL (4.00-5.40); WHITE BLOOD COUNT 2.4 10^3/uL (4.0-10.0)
[2019-01-12 09:28] LABS: ALBUMIN 3.8 GM/DL (3.2-5.2); ALT/SGPT 21 U/L (12-78); BILIRUBIN,TOTAL 0.3 MG/DL (0.2-1.0); BLOOD UREA NITROGEN 13 MG/DL (7-18); CALCIUM LEVEL 8.8 MG/DL (8.5-10.1); CARBON DIOXIDE LEVEL 30 MEQ/L (21-32); CHLORIDE LEVEL 106 MEQ/L (98-107); CREATININE FOR GFR 0.81 MG/DL (0.55-1.30); GLOMERULAR FILTRATION RATE > 60.0 (>51); GLUCOSE, FASTING 72 MG/DL (70-100); MAGNESIUM LEVEL 1.8 MG/DL (1.8-2.4); SODIUM LEVEL 143 MEQ/L (136-145); TOTAL PROTEIN 7.1 GM/DL (6.4-8.2); TRIGLYCERIDES LEVEL 83 MG/DL (<150)
[2019-01-15 00:06] LABS: CMV QUANT DNA PCR (PLASMA) Negative (Negative)
== END ==
LOC: M LAB 07:45
PROVIDERS: ATTEND Nurse Practitioner Acute Care
DX: Z79.899 Other long term (current) drug therapy (principal); R79.0 Abnormal level of blood mineral; D89.9 Disorder involving the immune mechanism, unspecified

== ENCOUNTER → 2019-01-14 | Outpatient (REF) | payer MEDICARE ==
[~2019-01-14] MED LIST changes: -ALPR0.5T3; +DOXY100T16 PO; -DOXY100T27 PO; -HYDR200T3; -LISI10TA4; -SIRO1TAB; -TACR1CAP3
== END ==
LOC: M LAB REF 10:23
PROVIDERS: ATTEND Rehabilitation Practitioner
DX: Z94.1 Heart transplant status (principal); A08.11 Acute gastroenteropathy due to Norwalk agent

== ENCOUNTER → 2019-01-20 | Outpatient (CLI) | payer MEDICARE ==
[2019-01-20 08:51] LABS: EOS % 1.3 % (0.0-3.0); HEMATOCRIT 39.4 % (36.0-47.0); HEMOGLOBIN 12.6 g/dl (12.0-15.5); LYMPH # 0.6 10^3/uL (1.5-5.0); LYMPH % 19.5 % (24.0-44.0); MEAN CORPUSCULAR HEMOGLOBIN 28.3 pg (27.0-33.0); MEAN CORPUSCULAR VOLUME 88.3 fl (80.0-96.0); MONO # 0.5 10^3/uL (0.0-0.8); MONO % 16.2 % (0.0-5.0); NEUTROPHILS # 1.9 10^3/uL (1.5-8.5); NEUTROPHILS % 62.7 % (36.0-66.0); PLATELET COUNT, AUTOMATED 192 10^3/uL (150-450); RED BLOOD COUNT 4.46 10^6/uL (4.00-5.40)
[2019-01-20 09:13] LABS: ALBUMIN 3.4 GM/DL (3.2-5.2); ALT/SGPT 23 U/L (12-78); BILIRUBIN,TOTAL 0.3 MG/DL (0.2-1.0); BLOOD UREA NITROGEN 10 MG/DL (7-18); CALCIUM LEVEL 8.6 MG/DL (8.5-10.1); CARBON DIOXIDE LEVEL 30 MEQ/L (21-32); CHLORIDE LEVEL 106 MEQ/L (98-107); CREATININE FOR GFR 0.82 MG/DL (0.55-1.30); GLOMERULAR FILTRATION RATE > 60.0 (>51); GLUCOSE, FASTING 78 MG/DL (70-100); MAGNESIUM LEVEL 1.5 MG/DL (1.8-2.4); POTASSIUM SERUM 3.8 MEQ/L (3.5-5.1); SODIUM LEVEL 143 MEQ/L (136-145); TOTAL PROTEIN 6.7 GM/DL (6.4-8.2); TRIGLYCERIDES LEVEL 108 MG/DL (<150)
[2019-01-23 00:08] LABS: CMV QUANT DNA PCR (PLASMA) Negative (Negative)
== END ==
LOC: M LAB 07:59
PROVIDERS: ATTEND Nurse Practitioner Acute Care
DX: Z94.1 Heart transplant status (principal); Z79.899 Other long term (current) drug therapy

== ENCOUNTER → 2019-02-03 | Outpatient (CLI) | payer MEDICARE ==
[2019-02-03 08:47] LABS: BASO % 0.3 % (0.0-1.0); EOS % 0.7 % (0.0-3.0); HEMOGLOBIN 12.7 g/dl (12.0-15.5); LYMPH # 0.5 10^3/uL (1.5-5.0); LYMPH % 15.6 % (24.0-44.0); MEAN CORPUSCULAR HGB CONC 31.8 g/dl (32.0-36.5); MEAN CORPUSCULAR VOLUME 88.1 fl (80.0-96.0); MONO # 0.4 10^3/uL (0.0-0.8); MONO % 12.4 % (0.0-5.0); NEUTROPHILS # 2.2 10^3/uL (1.5-8.5); NEUTROPHILS % 70.7 % (36.0-66.0); PLATELET COUNT, AUTOMATED 195 10^3/uL (150-450); RED BLOOD COUNT 4.54 10^6/uL (4.00-5.40); WHITE BLOOD COUNT 3.1 10^3/uL (4.0-10.0)
[2019-02-03 09:16] LABS: ALBUMIN 3.4 GM/DL (3.2-5.2); ALT/SGPT 27 U/L (12-78); BILIRUBIN,TOTAL 0.4 MG/DL (0.2-1.0); BLOOD UREA NITROGEN 11 MG/DL (7-18); CALCIUM LEVEL 8.6 MG/DL (8.5-10.1); CARBON DIOXIDE LEVEL 31 MEQ/L (21-32); CHLORIDE LEVEL 106 MEQ/L (98-107); CREATININE FOR GFR 0.81 MG/DL (0.55-1.30); GLOMERULAR FILTRATION RATE > 60.0 (>51); GLUCOSE, FASTING 88 MG/DL (70-100); MAGNESIUM LEVEL 1.4 MG/DL (1.8-2.4); POTASSIUM SERUM 3.3 MEQ/L (3.5-5.1); SODIUM LEVEL 144 MEQ/L (136-145); TOTAL PROTEIN 6.9 GM/DL (6.4-8.2); TRIGLYCERIDES LEVEL 90 MG/DL (<150)
[2019-02-06 00:06] LABS: CMV QUANT DNA PCR (PLASMA) Negative (Negative)
== END ==
LOC: M LAB 08:00
PROVIDERS: ATTEND Nurse Practitioner Acute Care
DX: Z51.81 Encounter for therapeutic drug level monitoring (principal); Z79.899 Other long term (current) drug therapy; Z94.1 Heart transplant status

== ENCOUNTER → 2019-02-16 | Outpatient (CLI) | payer MEDICARE ==
[~2019-02-16] MED LIST changes: -DOXY100T16 PO; +DOXY100T27 PO
[2019-02-16 08:03] LABS: BASO % 0.2 % (0.0-1.0); EOS % 0.9 % (0.0-3.0); HEMATOCRIT 41.6 % (36.0-47.0); HEMOGLOBIN 13.4 g/dl (12.0-15.5); LYMPH # 0.5 10^3/uL (1.5-5.0); LYMPH % 12.5 % (24.0-44.0); MEAN CORPUSCULAR HEMOGLOBIN 28.8 pg (27.0-33.0); MEAN CORPUSCULAR HGB CONC 32.2 g/dl (32.0-36.5); MEAN CORPUSCULAR VOLUME 89.3 fl (80.0-96.0); MONO # 0.5 10^3/uL (0.0-0.8); MONO % 10.9 % (0.0-5.0); NEUTROPHILS # 3.2 10^3/uL (1.5-8.5); NEUTROPHILS % 74.8 % (36.0-66.0); PLATELET COUNT, AUTOMATED 214 10^3/uL (150-450); RED BLOOD COUNT 4.66 10^6/uL (4.00-5.40); WHITE BLOOD COUNT 4.3 10^3/uL (4.0-10.0)
[2019-02-16 08:28] LABS: ALBUMIN 3.5 GM/DL (3.2-5.2); ALT/SGPT 21 U/L (12-78); BILIRUBIN,TOTAL 0.4 MG/DL (0.2-1.0); BLOOD UREA NITROGEN 13 MG/DL (7-18); CALCIUM LEVEL 8.9 MG/DL (8.5-10.1); CARBON DIOXIDE LEVEL 31 MEQ/L (21-32); CHLORIDE LEVEL 107 MEQ/L (98-107); CREATININE FOR GFR 0.84 MG/DL (0.55-1.30); GLOMERULAR FILTRATION RATE > 60.0 (>51); GLUCOSE, FASTING 75 MG/DL (70-100); MAGNESIUM LEVEL 1.7 MG/DL (1.8-2.4); POTASSIUM SERUM 3.3 MEQ/L (3.5-5.1); SODIUM LEVEL 144 MEQ/L (136-145); TRIGLYCERIDES LEVEL 107 MG/DL (<150)
[2019-02-19 00:15] LABS: CMV QUANT DNA PCR (PLASMA) Negative (Negative)
== END ==
LOC: M LAB 07:23
PROVIDERS: ATTEND Nurse Practitioner Acute Care
DX: Z94.1 Heart transplant status (principal); Z79.899 Other long term (current) drug therapy

== ENCOUNTER → 2019-03-09 | Outpatient (CLI) | payer MEDICARE ==
[2019-03-09 09:18] LABS: BASO % 0.3 % (0.0-1.0); EOS % 0.6 % (0.0-3.0); HEMATOCRIT 39.7 % (36.0-47.0); HEMOGLOBIN 12.8 g/dl (12.0-15.5); LYMPH # 0.5 10^3/uL (1.5-5.0); LYMPH % 15.2 % (24.0-44.0); MEAN CORPUSCULAR HEMOGLOBIN 29.4 pg (27.0-33.0); MEAN CORPUSCULAR HGB CONC 32.2 g/dl (32.0-36.5); MEAN CORPUSCULAR VOLUME 91.3 fl (80.0-96.0); MONO # 0.4 10^3/uL (0.0-0.8); MONO % 12.4 % (0.0-5.0); NEUTROPHILS # 2.5 10^3/uL (1.5-8.5); NEUTROPHILS % 71.2 % (36.0-66.0); PLATELET COUNT, AUTOMATED 206 10^3/uL (150-450); RED BLOOD COUNT 4.35 10^6/uL (4.00-5.40); WHITE BLOOD COUNT 3.6 10^3/uL (4.0-10.0)
[2019-03-09 09:49] LABS: ALBUMIN 3.3 GM/DL (3.2-5.2); ALT/SGPT 20 U/L (12-78); BILIRUBIN,TOTAL 0.4 MG/DL (0.2-1.0); BLOOD UREA NITROGEN 14 MG/DL (7-18); CALCIUM LEVEL 8.5 MG/DL (8.5-10.1); CARBON DIOXIDE LEVEL 29 MEQ/L (21-32); CHLORIDE LEVEL 106 MEQ/L (98-107); CREATININE FOR GFR 0.79 MG/DL (0.55-1.30); GLOMERULAR FILTRATION RATE > 60.0 (>51); GLUCOSE, FASTING 75 MG/DL (70-100); MAGNESIUM LEVEL 1.6 MG/DL (1.8-2.4); SODIUM LEVEL 141 MEQ/L (136-145); TOTAL PROTEIN 6.6 GM/DL (6.4-8.2); TRIGLYCERIDES LEVEL 83 MG/DL (<150)
[2019-03-12 00:06] LABS: CMV QUANT DNA PCR (PLASMA) Negative (Negative)
== END ==
LOC: M LAB 07:48
PROVIDERS: ATTEND Internal Medicine Advanced Heart Failure and Transplant Cardiology
DX: Z94.1 Heart transplant status (principal); Z79.899 Other long term (current) drug therapy

== ENCOUNTER → 2019-03-31 | Outpatient (CLI) | payer MEDICARE ==
[~2019-03-31] MED LIST changes: +ALPR0.5T3; +HYDR200T3; +LISI10TA4; +SIRO1TAB; +TACR1CAP3
[2019-03-31 09:08] LABS: BASO % 0.4 % (0.0-1.0); EOS % 1.7 % (0.0-3.0); HEMATOCRIT 40.9 % (36.0-47.0); HEMOGLOBIN 12.9 g/dl (12.0-15.5); LYMPH # 0.6 10^3/uL (1.5-5.0); LYMPH % 26.1 % (24.0-44.0); MEAN CORPUSCULAR HEMOGLOBIN 29.2 pg (27.0-33.0); MEAN CORPUSCULAR HGB CONC 31.5 g/dl (32.0-36.5); MEAN CORPUSCULAR VOLUME 92.5 fl (80.0-96.0); MONO # 0.4 10^3/uL (0.0-0.8); MONO % 16.2 % (0.0-5.0); NEUTROPHILS # 1.3 10^3/uL (1.5-8.5); NEUTROPHILS % 55.6 % (36.0-66.0); PLATELET COUNT, AUTOMATED 207 10^3/uL (150-450); RED BLOOD COUNT 4.42 10^6/uL (4.00-5.40); WHITE BLOOD COUNT 2.4 10^3/uL (4.0-10.0)
[2019-03-31 09:33] LABS: ALBUMIN 3.4 GM/DL (3.2-5.2); ALT/SGPT 22 U/L (12-78); BILIRUBIN,TOTAL 0.3 MG/DL (0.2-1.0); BLOOD UREA NITROGEN 11 MG/DL (7-18); CALCIUM LEVEL 8.4 MG/DL (8.5-10.1); CARBON DIOXIDE LEVEL 30 MEQ/L (21-32); CHLORIDE LEVEL 107 MEQ/L (98-107); GLOMERULAR FILTRATION RATE > 60.0 (>51); GLUCOSE, FASTING 81 MG/DL (70-100); MAGNESIUM LEVEL 1.7 MG/DL (1.8-2.4); POTASSIUM SERUM 3.9 MEQ/L (3.5-5.1); SODIUM LEVEL 143 MEQ/L (136-145); TOTAL PROTEIN 6.9 GM/DL (6.4-8.2); TRIGLYCERIDES LEVEL 59 MG/DL (<150)
[2019-04-03 00:07] LABS: CMV QUANT DNA PCR (PLASMA) Negative (Negative)
== END ==
LOC: M LAB 08:19
PROVIDERS: ATTEND Nurse Practitioner Acute Care
DX: Z94.1 Heart transplant status (principal); Z79.899 Other long term (current) drug therapy; D89.9 Disorder involving the immune mechanism, unspecified

== ENCOUNTER 2019-04-03 16:09 | Emergency (ER) | payer MEDICARE ==
[~2019-04-03 16:09] MED LIST changes: -ALPR0.5T3; -HYDR200T3; -LISI10TA4; -SIRO1TAB; -TACR1CAP3
[2019-04-03] MEDS ORDERED: LISI10TA4 (16:35)
[2019-04-03] MEDS ORDERED: HYDR200T3 (16:35)
[2019-04-03] MEDS ORDERED: TACR1CAP3 (16:35)
[2019-04-03] MEDS ORDERED: ALPR0.5T3 (16:35)
[2019-04-03] MEDS ORDERED: SIRO1TAB (16:35)
[2019-04-03 17:07] LABS: VENOUS BASE EXCESS 1.5 (-2.0-2.0); VENOUS O2 SATURATION 95.9 % (60.0-80.0); VENOUS PARTIAL PRESSURE CO2 35.9 mmHg (38.0-50.0); VENOUS PARTIAL PRESSURE O2 77.9 mmHg (30.0-50.0); VENOUS PH 7.461 UNITS (7.330-7.430); VENOUS STANDARD HCO3 25.8 MEQ/L; VENOUS TOTAL CO2 26.1 MEQ/L (24.0-28.0)
[2019-04-03 17:09] LABS: BASO % 0.6 % (0.0-1.0); EOS % 0.6 % (0.0-3.0); HEMATOCRIT 40.1 % (36.0-47.0); LYMPH # 0.7 10^3/uL (1.5-5.0); LYMPH % 19.2 % (24.0-44.0); MEAN CORPUSCULAR HEMOGLOBIN 29.7 pg (27.0-33.0); MEAN CORPUSCULAR HGB CONC 32.4 g/dl (32.0-36.5); MEAN CORPUSCULAR VOLUME 91.6 fl (80.0-96.0); MONO # 0.4 10^3/uL (0.0-0.8); MONO % 11.5 % (0.0-5.0); NEUTROPHILS # 2.4 10^3/uL (1.5-8.5); NEUTROPHILS % 67.8 % (36.0-66.0); PLATELET COUNT, AUTOMATED 222 10^3/uL (150-450); RED BLOOD COUNT 4.38 10^6/uL (4.00-5.40); WHITE BLOOD COUNT 3.5 10^3/uL (4.0-10.0)
[2019-04-03 17:25] LABS: INR 1.04; PROTHROMBIN TIME 13.3 SECONDS (11.8-14.0)
[2019-04-03 17:44] LABS: ALBUMIN 3.5 GM/DL (3.2-5.2); ALT/SGPT 21 U/L (12-78); BILIRUBIN,DIRECT 0.1 MG/DL (0.0-0.2); BILIRUBIN,TOTAL 0.3 MG/DL (0.2-1.0); BLOOD UREA NITROGEN 11 MG/DL (7-18); CALCIUM LEVEL 8.8 MG/DL (8.5-10.1); CARBON DIOXIDE LEVEL 28 MEQ/L (21-32); CHLORIDE LEVEL 106 MEQ/L (98-107); CK-MB VALUE MASS < 1.0 NG/ML (<3.6); CPK CREATINE PHOSPHOKINASE 70 U/L (26-192); CREATININE FOR GFR 0.88 MG/DL (0.55-1.30); GLOMERULAR FILTRATION RATE > 60.0 (>51); GLUCOSE, FASTING 72 MG/DL (70-100); MB/CK RELATIVE INDEX 1.43 (< OR =4); POTASSIUM SERUM 3.6 MEQ/L (3.5-5.1); SODIUM LEVEL 141 MEQ/L (136-145); TOTAL PROTEIN 7.3 GM/DL (6.4-8.2); TROPONIN I < 0.02 NG/ML (< 0.10)
--- NOTE | 2019-04-03 17:45 | REP ---
AP PORTABLE CHEST 04/03/2019. Comparison: 03/25/2018. Clinical history: Sepsis. Findings: Compared to the previous study the pacer unit and left ventricular assist device are no longer evident. Sternotomy wires are again seen. Heart mildly prominent. There is slight elevation of the left diaphragm. Some linear atelectatic change in the left base. No dense consolidation or gross effusion but this has a portable chest with limited evaluation of posterior lower lung zones. Mid and upper lung zones clear. No widening of the mediastinum. Impression: 1. Linear atelectatic change in left base with slight elevation left diaphragm since previous study. 2. Interval removal since 03/25/2018 of the left ventricular assist device and AICD pacer. 3. Borderline heart size without pulmonary edema or gross effusion. Electronically Signed by Adrian Hickman MD 04/03/2019 08:01 P
[2019-04-03 19:08] LABS: NT-PRO BNP 237 PG/ML (<125)
[2019-04-03 20:00] VITALS: BP 121/72
--- NOTE | 2019-04-03 20:09 | ECGEPIP ---
[facility] - ED Test Date: 2019-04-03 Pat Name: LESVIA MURRAY Department: Room: - Gender: Female [place]: TREVER : 1965 Requested By: Fabi Chavez Order Number: [id number] Reading MD: Fabi Chavez Measurements Intervals [place] Rate: 103 P: 40 TX: 112 QRS: 23 QRSD: 98 T: 31 QT: 358 QTc: 470 Interpretive Statements SINUS TACHYCARDIA WITH SHORT TX INTERVAL NONSPECIFIC T-WAVE ABNORMALITY LESS PRONOUNCED COMPARED 08/01/18 ABNORMAL RHYTHM ECG Electronically Signed on 04-03-2019 20:08:53 EST by Fabi Chavez
== END 2019-04-03 20:08 | disposition home or self-care (01) ==
LOC: M ED 16:09
DX: J06.9 Acute upper respiratory infection, unspecified (principal); I48.91 Unspecified atrial fibrillation; I10 Essential (primary) hypertension; R00.0 Tachycardia, unspecified; R94.31 Abnormal electrocardiogram [ECG] [EKG]; Z79.82 Long term (current) use of aspirin; Z79.899 Other long term (current) drug therapy; Z88.2 Allergy status to sulfonamides; Z88.6 Allergy status to analgesic agent

== ENCOUNTER → 2019-04-14 | Outpatient (CLI) | payer MEDICARE ==
[~2019-04-14] MED LIST changes: +ALPR0.5T3; +HYDR200T3; +LISI10TA4; +SIRO1TAB; +TACR1CAP3
[2019-04-14 09:56] LABS: ALBUMIN 3.6 GM/DL (3.2-5.2); ALT/SGPT 20 U/L (12-78); BILIRUBIN,TOTAL 0.5 MG/DL (0.2-1.0); BLOOD UREA NITROGEN 15 MG/DL (7-18); CALCIUM LEVEL 8.8 MG/DL (8.5-10.1); CARBON DIOXIDE LEVEL 30 MEQ/L (21-32); CHLORIDE LEVEL 107 MEQ/L (98-107); CREATININE FOR GFR 0.99 MG/DL (0.55-1.30); GLOMERULAR FILTRATION RATE > 60.0 (>51); GLUCOSE, FASTING 78 MG/DL (70-100); MAGNESIUM LEVEL 1.8 MG/DL (1.8-2.4); POTASSIUM SERUM 4.5 MEQ/L (3.5-5.1); SODIUM LEVEL 142 MEQ/L (136-145); TOTAL PROTEIN 7.1 GM/DL (6.4-8.2); TRIGLYCERIDES LEVEL 80 MG/DL (<150)
[2019-04-14 10:22] LABS: BASO % 0.4 % (0.0-1.0); EOS % 0.8 % (0.0-3.0); HEMATOCRIT 43.1 % (36.0-47.0); HEMOGLOBIN 13.7 g/dl (12.0-15.5); LYMPH # 0.5 10^3/uL (1.5-5.0); MEAN CORPUSCULAR HEMOGLOBIN 29.3 pg (27.0-33.0); MEAN CORPUSCULAR HGB CONC 31.8 g/dl (32.0-36.5); MEAN CORPUSCULAR VOLUME 92.3 fl (80.0-96.0); MONO # 0.4 10^3/uL (0.0-0.8); MONO % 17.4 % (0.0-5.0); NEUTROPHILS # 1.6 10^3/uL (1.5-8.5); NEUTROPHILS % 62.4 % (36.0-66.0); PLATELET COUNT, AUTOMATED 227 10^3/uL (150-450); RED BLOOD COUNT 4.67 10^6/uL (4.00-5.40); WHITE BLOOD COUNT 2.5 10^3/uL (4.0-10.0)
[2019-04-17 00:07] LABS: CMV QUANT DNA PCR (PLASMA) Negative (Negative)
== END ==
LOC: M LAB 08:06
PROVIDERS: ATTEND Nurse Practitioner Acute Care
DX: D89.9 Disorder involving the immune mechanism, unspecified (principal); Z94.1 Heart transplant status; Z79.899 Other long term (current) drug therapy

== ENCOUNTER → 2019-04-24 | Outpatient (CLI) | payer MEDICARE ==
--- NOTE | 2019-04-24 14:49 | REP ---
BILATERAL MAMMOGRAM WITH DIAGNOSTIC MAMMOGRAM RIGHT BREAST AND RIGHT BREAST ULTRASOUND: HISTORY: Palpable lump right breast near the nipple, upper outer aspect. Area is marked on the skin. No family history of breast cancer. Tyrer-Cuzick lifetime risk of breast cancer, 11.6%. MLO and CC views of both breasts performed with 3D tomosynthesis. Additional spot compression views are performed of the right breast. Comparison made with prior studies, most recently 09/18/2017. There is mild to moderate scattered fibroglandular tissue bilaterally, which is similar in appearance compared to the prior study. Metallic clip is again seen in the outer right breast from a prior benign stereotactic biopsy. Previously noted pacemaker has been removed, and at that location there are benign-appearing calcifications with linear scarring. No new mass is seen in either breast, and there are no suspicious clusters of microcalcifications. Real-time sonographic evaluation of right breast performed at the site of the palpable lump, which is reportedly pea sized. The palpable lump is located near the right nipple at 10-o'clock position. At that location, there is a hypoechoic nodule, which is fairly superficial, measuring 7 x 6 x 6 mm. There is some distal acoustic shadowing. Margins are somewhat irregular. IMPRESSION: BIRADS 4: BI-RADS/ACR category 4 mammogram. Suspicious Abnormality - biopsy should be considered. ACR 4 suspicious. No new mammographic abnormalities are seen. However, by ultrasound, at the site of the palpable lump right breast 10-o'clock position near the nipple, is a fairly superficial hypoechoic nodule with a maximum diameter of 7 mm. Recommend ultrasound-guided biopsy. This mammogram was interpreted with the aid of an FDA-approved computer-aided detection system. The patient states that she or he has not had a clinical breast exam in over a year. The patient letter being requested is M4. Electronically Signed by Brody Carrillo MD 04/24/2019 05:14 P
== END ==
LOC: M RAD 09:58
PROVIDERS: ATTEND Family Medicine
DX: N63.10 Unspecified lump in the right breast, unspecified quadrant (principal)
CPT/HCPCS: 76642; 77066; G0279

== ENCOUNTER → 2019-05-04 | Outpatient (CLI) | payer MEDICARE ==
--- NOTE | 2019-05-04 13:11 | REP ---
Right axillary ultrasound: History: Right breast lump with suspicious mammographic and sonographic findings from 04/24/2019. Axillary ultrasound requested for further evaluation. Findings: Right axillary sonography is performed. Multiple normal appearing lymph nodes are seen with a thin cortical margin and echogenic fatty center. The largest of these measures 2.0 x 1.6 x 0.5 cm. None of these appear pathologic by sonographic criteria. Impression: BIRADS category 2 benign findings. Normal appearing lymph nodes visible.
== END ==
LOC: M WHC 10:48
PROVIDERS: ATTEND Surgery
DX: N63.11 Unspecified lump in the right breast, upper outer quadrant (principal)

== ENCOUNTER → 2019-05-05 | Outpatient (CLI) | payer MEDICARE ==
[2019-05-05 08:51] LABS: BASO % 0.3 % (0.0-1.0); EOS # 0.1 10^3/uL (0.0-0.5); EOS % 1.4 % (0.0-3.0); HEMATOCRIT 44.7 % (36.0-47.0); LYMPH # 0.7 10^3/uL (1.5-5.0); MEAN CORPUSCULAR HEMOGLOBIN 29.2 pg (27.0-33.0); MEAN CORPUSCULAR HGB CONC 31.3 g/dl (32.0-36.5); MEAN CORPUSCULAR VOLUME 93.3 fl (80.0-96.0); MONO # 0.4 10^3/uL (0.0-0.8); MONO % 11.9 % (0.0-5.0); NEUTROPHILS # 2.5 10^3/uL (1.5-8.5); NEUTROPHILS % 68.1 % (36.0-66.0); PLATELET COUNT, AUTOMATED 196 10^3/uL (150-450); RED BLOOD COUNT 4.79 10^6/uL (4.00-5.40); WHITE BLOOD COUNT 3.6 10^3/uL (4.0-10.0)
[2019-05-05 11:24] LABS: ALBUMIN 3.3 GM/DL (3.2-5.2); ALT/SGPT 18 U/L (12-78); BILIRUBIN,TOTAL 0.4 MG/DL (0.2-1.0); BLOOD UREA NITROGEN 13 MG/DL (7-18); CALCIUM LEVEL 8.7 MG/DL (8.5-10.1); CARBON DIOXIDE LEVEL 27 MEQ/L (21-32); CHLORIDE LEVEL 107 MEQ/L (98-107); CREATININE FOR GFR 0.92 MG/DL (0.55-1.30); GLOMERULAR FILTRATION RATE > 60.0 (>51); GLUCOSE, FASTING 74 MG/DL (70-100); MAGNESIUM LEVEL 1.7 MG/DL (1.8-2.4); SODIUM LEVEL 142 MEQ/L (136-145); TOTAL PROTEIN 6.7 GM/DL (6.4-8.2); TRIGLYCERIDES LEVEL 90 MG/DL (<150)
[2019-05-08 00:07] LABS: CMV QUANT DNA PCR (PLASMA) Negative (Negative)
== END ==
LOC: M LAB 08:13
PROVIDERS: ATTEND Internal Medicine Advanced Heart Failure and Transplant Cardiology
DX: D89.9 Disorder involving the immune mechanism, unspecified (principal); Z94.1 Heart transplant status; Z79.899 Other long term (current) drug therapy

== ENCOUNTER → 2019-05-11 | Outpatient (CLI) | payer MEDICARE ==
[~2019-05-11] MED LIST changes: +LIDOCAINE 1% MDV 20ML VIAL As Ordered ONE; +SODIUM BICARBONATE 8.4% INJ 50MEQ 50 ML VIAL As Ordered ONE; +diphenhydrAMINE 25 MG CAP PO ONE; +diphenhydrAMINE 50 MG CAP As Ordered ONE
[2019-05-11 11:05] VITALS: BP 161/96
--- NOTE | 2019-05-11 11:58 | REP ---
DIGITAL DIAGNOSTIC UNILATERAL RIGHT BREAST MAMMOGRAPHY WITH CAD: TWO VIEWS. HISTORY: Marker clip placement views. The patient status post ultrasound-guided needle biopsy right breast. Comparison mammography: April 24, 2019 FINDINGS: Craniocaudal and true mediolateral views of the right breast were obtained. The previously noted marker clip again seen in the right lateral breast. A new needle biopsy marker clip is seen in approximately 12-o'clock position superiorly on the right. There is no visible hematoma. IMPRESSION: A second needle biopsy marker clip is now visible in the right breast. Electronically Signed by González Lafleur MD 05/11/2019 02:48 P
--- NOTE | 2019-05-11 20:54 | ROOPDOC ---
[facility] Report Of Operation Report of Operation DATE OF PROCEDURE: 05/11/19 PREPROCEDURE DIAGNOSES: Right breast masses POSTPROCEDURE DIAGNOSES: Right breast masses PROCEDURE: Ultrasound guided right breast biopsy SURGEON: Benson Cool D.O. BUNCHER OPERATOR: ANESTHESIA: local, 20 cc ESTIMATED BLOOD LOSS: Approximately 1 mL. COMPLICATIONS: patient developed chest pruritus at the end of procedure, improved with PO Benadryl. No issues with breathing, not hypotensive. DESCRIPTION OF PROCEDURE: Lidocaine 1% LOT [id number] Expiration May 2020 Sodium Bicarbonate 8.4% LOT 03-432-EV 2020 Hydromark clip Shape 3 LOT [id number] Expiration 2021 Bx device: BARD [id number] x10 cm LOT [id number] Expiration Informed consent was obtained in the preop area. The most common risk and possible complications including bleeding, hematoma, bruising, infection, injury to surrounding structures were explained to the patient and she expressed understanding. Patient was taken to the procedure room and placed on the bed in the supine position with the right upper extremity placed above the head. Appropriate time out was done stating patients name, date of , and the procedure to be performed. The right breast was prepped and draped in the usual fashion. The ultrasound was used to confirm the location of the lesion in the right breast at 10:00 and at 7:00 at the areolar border. Since both lesions were very close to each other, biopsy tract was chosen to biopsy both of the lesions at the same time. Plain Lidocaine 1% and 8.4% sodium bicarbonate 10:1 mix was used to numb the skin, the biopsy site and tissues along the anticipated biopsy tract. Small skin incision was made with blade number 11. BARD Marquee 14G cannula with introducer ([id number]) was inserted through the incision and advanced under the ultrasound guidance to position immediately adjacent to the lesion. Next, the introducer was removed and BARD Marquee 14G biopsy device was places in the cannula. Pre-biopsy imaging, and post-biopsy imaging were captured. Five good core biopsies were taken at various levels of the lesion. Next, the biopsy device was withdrawn and a clip introducer was inserted into the biopsy site via the cannula. The Hydromark clip was deployed under direct vision. Post-clip placement image was captured. Manual pressure over the biopsy cavity and tract was held after the clip introducer was withdrawn. No bleeding was noted upon removal of the pressure. Patient noted severe itching in the upper chest. Clean towel was used to wash off any residual cleaning solution from patients chest and breasts. Benadryl 50 mg pill PO was given with small sip of water. Patient did not have problems breathing. The itching subsided after a few minutes. Patient was advised to avoid scratching her skin due to risk of infection. Post-biopsy mammogram of the right breast was obtained and showed clip in expected position. Postprocedural dressing was placed. Patient tolerated procedure well and was taken to the recovery unit in stable condition. Discharge instructions were discussed with the patient and she expressed understanding. BENSON Metz DO May 11, 2019 20:54
== END ==
LOC: M IRPRO 09:34
PROVIDERS: ATTEND Surgery
DX: C50.011 Malignant neoplasm of nipple and areola, right female breast (principal)

== ENCOUNTER → 2019-05-19 | Outpatient (CLI) | payer MEDICARE ==
[~2019-05-19] MED LIST changes: -LIDOCAINE 1% MDV 20ML VIAL As Ordered ONE; -SODIUM BICARBONATE 8.4% INJ 50MEQ 50 ML VIAL As Ordered ONE; -diphenhydrAMINE 25 MG CAP PO ONE; -diphenhydrAMINE 50 MG CAP As Ordered ONE
[2019-05-19 08:43] LABS: BASO % 0.3 % (0.0-1.0); EOS # 0.1 10^3/uL (0.0-0.5); EOS % 1.6 % (0.0-3.0); HEMATOCRIT 41.8 % (36.0-47.0); HEMOGLOBIN 13.8 g/dl (12.0-15.5); LYMPH # 0.6 10^3/uL (1.5-5.0); LYMPH % 19.6 % (24.0-44.0); MEAN CORPUSCULAR HEMOGLOBIN 30.7 pg (27.0-33.0); MEAN CORPUSCULAR VOLUME 93.1 fl (80.0-96.0); MONO # 0.4 10^3/uL (0.0-0.8); MONO % 13.9 % (0.0-5.0); NEUTROPHILS % 63.7 % (36.0-66.0); PLATELET COUNT, AUTOMATED 209 10^3/uL (150-450); RED BLOOD COUNT 4.49 10^6/uL (4.00-5.40); WHITE BLOOD COUNT 3.2 10^3/uL (4.0-10.0)
[2019-05-19 09:07] LABS: ALBUMIN 3.3 GM/DL (3.2-5.2); ALT/SGPT 22 U/L (12-78); BILIRUBIN,TOTAL 0.3 MG/DL (0.2-1.0); BLOOD UREA NITROGEN 12 MG/DL (7-18); CALCIUM LEVEL 8.1 MG/DL (8.5-10.1); CARBON DIOXIDE LEVEL 33 MEQ/L (21-32); CHLORIDE LEVEL 108 MEQ/L (98-107); CREATININE FOR GFR 0.74 MG/DL (0.55-1.30); GLOMERULAR FILTRATION RATE > 60.0 (>51); GLUCOSE, FASTING 79 MG/DL (70-100); MAGNESIUM LEVEL 1.7 MG/DL (1.8-2.4); POTASSIUM SERUM 4.3 MEQ/L (3.5-5.1); SODIUM LEVEL 144 MEQ/L (136-145); TOTAL PROTEIN 6.6 GM/DL (6.4-8.2); TRIGLYCERIDES LEVEL 126 MG/DL (<150)
[2019-05-22 00:06] LABS: CMV QUANT DNA PCR (PLASMA) Negative (Negative)
== END ==
LOC: M LAB 07:57
PROVIDERS: ATTEND Nurse Practitioner Acute Care
DX: Z79.899 Other long term (current) drug therapy (principal)

== ENCOUNTER → 2019-05-26 | Outpatient (CLI) | payer MEDICARE ==
[2019-05-26 08:44] LABS: BASO % 0.4 % (0.0-1.0); EOS % 1.2 % (0.0-3.0); HEMATOCRIT 43.4 % (36.0-47.0); HEMOGLOBIN 13.8 g/dl (12.0-15.5); LYMPH # 0.6 10^3/uL (1.5-5.0); LYMPH % 24.4 % (24.0-44.0); MEAN CORPUSCULAR HEMOGLOBIN 29.8 pg (27.0-33.0); MEAN CORPUSCULAR HGB CONC 31.8 g/dl (32.0-36.5); MEAN CORPUSCULAR VOLUME 93.7 fl (80.0-96.0); MONO # 0.4 10^3/uL (0.0-0.8); MONO % 17.1 % (0.0-5.0); NEUTROPHILS # 1.5 10^3/uL (1.5-8.5); NEUTROPHILS % 56.9 % (36.0-66.0); PLATELET COUNT, AUTOMATED 199 10^3/uL (150-450); RED BLOOD COUNT 4.63 10^6/uL (4.00-5.40); WHITE BLOOD COUNT 2.6 10^3/uL (4.0-10.0)
[2019-05-26 09:13] LABS: ALBUMIN 3.4 GM/DL (3.2-5.2); ALT/SGPT 21 U/L (12-78); BILIRUBIN,TOTAL 0.3 MG/DL (0.2-1.0); BLOOD UREA NITROGEN 12 MG/DL (7-18); CALCIUM LEVEL 8.2 MG/DL (8.5-10.1); CARBON DIOXIDE LEVEL 33 MEQ/L (21-32); CHLORIDE LEVEL 106 MEQ/L (98-107); CHOLESTEROL LEVEL 168 MG/DL (<200); CHOLESTEROL RISK RATIO 2.434 (<5); CREATININE FOR GFR 0.78 MG/DL (0.55-1.30); FREE T4 1.14 NG/DL (0.76-1.46); GLOMERULAR FILTRATION RATE > 60.0 (>51); GLUCOSE, FASTING 79 MG/DL (70-100); HDL CHOLESTEROL 69 MG/DL (>40); LDL CHOLESTEROL 67 MG/DL (<100); MAGNESIUM LEVEL 1.6 MG/DL (1.8-2.4); NON-HDL-C 99 MG/DL; POTASSIUM SERUM 3.8 MEQ/L (3.5-5.1); SODIUM LEVEL 143 MEQ/L (136-145); TOTAL PROTEIN 6.8 GM/DL (6.4-8.2); TRIGLYCERIDES LEVEL 160 MG/DL (<150)
[2019-05-26 09:41] LABS: TOTAL 25(OH) VITAMIN D 44.6 NG/ML (30.0-100.0)
[2019-05-26 09:48] LABS: HEMOGLOBIN A1c 5.4 %
[2019-05-26 10:03] LABS: CREATININE, SERUM 0.8 MG/DL (0.6-1.0)
[2019-05-26 10:22] LABS: CREATININE CLEARANCE, URINE 98.5 ML/MIN (75-115); CREATININE, URINE 52.8 MG/DL
[2019-05-29 00:07] LABS: CMV QUANT DNA PCR (PLASMA) Negative (Negative); EBV VIRAL CAPSID AG IgM <36.0 U/mL (0.0-35.9)
== END ==
LOC: M LAB 07:36
PROVIDERS: ATTEND Internal Medicine Advanced Heart Failure and Transplant Cardiology
DX: Z94.1 Heart transplant status (principal); Z79.899 Other long term (current) drug therapy; E78.00 Pure hypercholesterolemia, unspecified

== ENCOUNTER → 2019-06-17 | Outpatient (CLI) | payer MEDICARE ==
[2019-06-17 09:43] LABS: BASO % 0.9 % (0.0-1.0); EOS % 1.2 % (0.0-3.0); HEMATOCRIT 40.5 % (36.0-47.0); HEMOGLOBIN 13.7 g/dl (12.0-15.5); LYMPH % 30.7 % (24.0-44.0); MEAN CORPUSCULAR HGB CONC 33.8 g/dl (32.0-36.5); MEAN CORPUSCULAR VOLUME 94.6 fl (80.0-96.0); MONO # 0.5 10^3/uL (0.0-0.8); MONO % 13.8 % (0.0-5.0); NEUTROPHILS # 1.7 10^3/uL (1.5-8.5); NEUTROPHILS % 53.4 % (36.0-66.0); PLATELET COUNT, AUTOMATED 260 10^3/uL (150-450); RED BLOOD COUNT 4.28 10^6/uL (4.00-5.40); WHITE BLOOD COUNT 3.3 10^3/uL (4.0-10.0)
[2019-06-17 10:11] LABS: ALBUMIN 3.6 GM/DL (3.2-5.2); ALT/SGPT 27 U/L (12-78); BILIRUBIN,TOTAL 0.7 MG/DL (0.2-1.0); BLOOD UREA NITROGEN 15 MG/DL (7-18); CALCIUM LEVEL 8.9 MG/DL (8.5-10.1); CARBON DIOXIDE LEVEL 32 MEQ/L (21-32); CHLORIDE LEVEL 105 MEQ/L (98-107); CREATININE FOR GFR 0.85 MG/DL (0.55-1.30); GLOMERULAR FILTRATION RATE > 60.0 (>51); GLUCOSE, FASTING 73 MG/DL (70-100); MAGNESIUM LEVEL 1.7 MG/DL (1.8-2.4); POTASSIUM SERUM 4.4 MEQ/L (3.5-5.1); SODIUM LEVEL 141 MEQ/L (136-145); TOTAL PROTEIN 6.9 GM/DL (6.4-8.2); TRIGLYCERIDES LEVEL 82 MG/DL (<150)
[2019-06-20 00:06] LABS: CMV QUANT DNA PCR (PLASMA) Negative (Negative)
== END ==
LOC: M LAB 08:11
PROVIDERS: ATTEND Nurse Practitioner Acute Care
DX: Z94.1 Heart transplant status (principal); Z79.899 Other long term (current) drug therapy

== ENCOUNTER 2019-06-30 05:18 | Inpatient (IN) | payer MEDICARE ==
[~2019-06-30] VITALS: Ht 170.2 cm; Wt 85.6 kg
[~2019-06-30 05:18] MED LIST changes: -ALPR0.5T3; +ALPR0.5T3 PO; -TACR1CAP3; +TACR1CAP3 PO
[2019-06-30] MEDS ORDERED: PLAQ200T4 PO (05:30)
[2019-06-30] MEDS ORDERED: MYCO250C PO (05:30)
[2019-06-30] MEDS ORDERED: CIPRODEX AU (05:30)
[2019-06-30] MEDS ORDERED: TORS10TA3 PO (05:30)
[2019-06-30] MEDS ORDERED: KLOR20TA42 PO (05:30)
[2019-06-30] MEDS ORDERED: MM S100C PO (05:30)
[2019-06-30] MEDS ORDERED: CEFD1CAP8 PO (05:58)
[2019-06-30] MEDS ORDERED: NS 500 ML IV ONE (06:00)
[2019-06-30 06:26] LABS: ABG BASE EXCESS 0.9 (-2.0-2.0); ABG HCO3 24.6 MEQ/L (22.0-26.0); ABG O2 SATURATION 95.6 % (95.0-99.0); ABG PARTIAL PRESSURE O2 74.5 mmHg (75.0-100.0); ABG STANDARD HCO3 25.3 MEQ/L (22.0-26.0); ABG TOTAL CO2 25.7 MEQ/L (22.0-29.0); ABG pH (ARTERIAL) 7.452 UNITS (7.350-7.450)
[2019-06-30] MEDS ORDERED: LOSA50TA88 PO (06:27)
[2019-06-30 06:43] LABS: BASO % 0.2 % (0.0-1.0); EOS % 0.2 % (0.0-3.0); HEMATOCRIT 37.7 % (36.0-47.0); HEMOGLOBIN 12.4 g/dl (12.0-15.5); LYMPH # 0.4 10^3/uL (1.5-5.0); LYMPH % 8.6 % (24.0-44.0); MEAN CORPUSCULAR HEMOGLOBIN 31.8 pg (27.0-33.0); MEAN CORPUSCULAR HGB CONC 32.9 g/dl (32.0-36.5); MEAN CORPUSCULAR VOLUME 96.7 fl (80.0-96.0); MONO # 0.4 10^3/uL (0.0-0.8); NEUTROPHILS # 3.3 10^3/uL (1.5-8.5); NEUTROPHILS % 81.8 % (36.0-66.0); PLATELET COUNT, AUTOMATED 197 10^3/uL (150-450); WHITE BLOOD COUNT 4.1 10^3/uL (4.0-10.0)
[2019-06-30 06:53] LABS: CK-MB VALUE MASS < 1.0 NG/ML (<3.6); CPK CREATINE PHOSPHOKINASE 37 U/L (26-192); NT-PRO BNP 255 PG/ML (<125); TROPONIN I < 0.02 NG/ML (< 0.10)
[2019-06-30] MEDS ORDERED: VANCOMYCIN HCL 1,750 MG in D5W 250 ML IV ONE (07:45)
[2019-06-30] MEDS ORDERED: PIPERACILLIN/TAZOBACTAM SOD 4.5 GM in D5W MINI-BAG PLUS 50 ML IV ONE (07:45)
[2019-06-30] MEDS ORDERED: VANCOMYCIN HCL 1,000 MG, VIAL MATE ADAPTER 1 EACH in D5W 250 ML IV ONE (08:00)
[2019-06-30] MEDS ORDERED: VANCOMYCIN HCL 750 MG, VIAL MATE ADAPTER 1 EACH in D5W 250 ML IV ONE (08:00)
--- NOTE | 2019-06-30 08:27 | REP ---
Chest x-ray: Two views. History: Dyspnea. Comparison chest x-ray: April 03, 2019. Findings: Left hemidiaphragm is again noted be somewhat elevated and there is discoid atelectasis above it in the left lower lobe. The patient status post prior median sternotomy. Lung durand are otherwise clear. The pleural angles are sharp. Pulmonary vasculature is not increased. No focal infiltrate is seen. The heart is near the upper range of normal with cardiothoracic ratio 47.3%. No bony abnormalities seen. Impression: Prior sternotomy. Borderline heart size unchanged. Elevated left hemidiaphragm plate-like atelectasis left base. Otherwise no acute disease. Electronically Signed by González Lafleur MD 06/30/2019 08:18 A
[2019-06-30] MEDS ORDERED: IPRATROPIUM 0.5MG/ALBUTEROL 2.5MG INH SOL UD 3ML (DUONEB)(J7620) NEB ONE (09:30)
[2019-06-30] MEDS ORDERED: methylPREDNISolone INJ 125 MG/2 ML VIAL (J2930) IV ONE (09:30)
[2019-06-30] MEDS ORDERED: ALBUTEROL SULFATE 2.5 MG/0.5 ML INH NEB SOLN INH ONE (09:30)
[2019-06-30] MEDS ORDERED: NS 1,000 ML IV ONE (10:45)
--- NOTE | 2019-06-30 12:28 | REP ---
CT chest without IV contrast: History: Shortness of breath. The patient is status post cardiac transplant. The patient also gives a history of prior right breast malignancy and gastric sleeve resection. Comparison chest CT study June 26, 2018. CT findings: Preliminary digital feeder tender radiograph shows slight elevation left hemidiaphragm, mildly prominent heart and median sternotomy wires. There is mild diffuse peribronchial thickening bilaterally. This is most pronounced in the right upper lobe and in the lower lobes bilaterally. This may reflect bronchitis. There is a band of parenchymal discoid atelectasis in the left lower lobe above the elevated left hemidiaphragm. This is fairly coarse. No definite infiltrate is seen associated with this or elsewhere. No pleural effusion is seen. The previously noted left pleural effusion and large pericardial effusion have resolved. No right pleural effusion is seen. There is a pretracheal lymph node measuring 11 mm in short axis dimension which is felt to be unchanged. No axillary or other extrathoracic adenopathy is appreciated. Postoperative changes seen in the stomach and clips are noted in the gallbladder fossa. Accessory splenules are noted in the left upper quadrant. Normal adrenal glands. No bony destructive lesion is seen. Impression: A diffuse pattern of mild bronchial wall thickening question bronchitis; bilateral lower lobes and right upper lobe. There is a coarse band of discoid atelectasis in the left lower lobe above the elevated left hemidiaphragm. The small left effusion and the moderate to large pericardial effusion seen on the study done June 26, 2018 have resolved. Otherwise no active disease. Electronically Signed by González Lafleur MD 06/30/2019 05:57 P
--- NOTE | 2019-06-30 12:52 | HPE ---
DATE OF ADMISSION: 06/30/2019 PRIMARY CARE PROVIDER: [facility] in [place]. CHIEF COMPLAINT: Shortness of breath, fever, presumed viral illness. HISTORY: Tom Hagan is a 54-year-old with a recent history of orthotropic heart transplant at [facility], April 2018. She was admitted with a respiratory infection. She was seen in the office yesterday, had a sore throat, myalgias, cough, feeling weak and rundown, bringing up occasional sputum. No sinus pressure and headache was noted. Treated with Cefdinir for bilateral acute otitis media based on exam. She presented to the emergency room with increasing cough, generalized weakness and more shortness of breath. She had a self-reported temperature of 103 at home that developed overnight. She has had no recent travel to [place] nor has had any contact with anyone with similar travel history. Her boyfriend is ill with an upper respiratory infection. PAST MEDICAL HISTORY: She has a past medical history of nonischemic cardiomyopathy and left ventricular assistance device at [facility] for a period of time and underwent orthotropic heart transplant at [facility] April 2018. Election fraction when last checked February 2019 was 58%. She has a history of bariatric surgery with a sleeve gastrectomy at [facility] February 2017. She is anemic and has had multiple blood transfusions to the point of iron overload. Underwent esophagogastroduodenoscopy (EGD) with push enteroscopy, colonoscopy and capsule endoscopy at the [facility] April 2014. She was admitted with an upper gastrointestinal bleed July 2016. At that time, EGD showed gastric erosions. Past history of atrial fibrillation was on chronic anticoagulant therapy at that time. History of hypertensive heart disease, hypothyroidism, anxiety with insomnia. History of depression, hypomagnesemia. She has rheumatoid arthritis and was followed by [facility] in [place] for a period of time. Most recent medical history is significant for right breast cancer. She underwent screening mammography March 2019 with an ultrasound. Had a lump near the right nipple at the 10-o'clock position. Underwent ultrasound-guided biopsy which showed an invasive lobular carcinoma grade 1, ER/DC positive HER2/sunitha negative. She had a planned surgery in the [facility] in 3 days on 07/03/2019 of a right mastectomy was sentinel lymph node biopsy with cardiac anesthesia and her heart transplant team on standby. She had been transitioned to a new immunosuppressant regimen by her transplant team in anticipation of this. She had C difficile colitis and norovirus enteritis in 2018. She had enteropathogenic E Coli December 2018. She had C difficile colitis diagnoses in June 2018 as well as August 2018. PAST SURGICAL HISTORY: Ganglion cyst left ankle. section. Tonsillectomy. Pacemaker defibrillator. Cholecystectomy June 2013. Left ventricular assistive device (LVAD) February 2014. EGD with push enteroscopy, colonoscopy, capsule endoscopy April 2014. Hysterectomy June 2016. EGD colonoscopy at [facility] July 2016. Sleeve gastrectomy with 120-pound weight loss February 2017. Heart transplant April 2018. FAMILY HISTORY: Father at 72 of aneurysm, chronic obstructive pulmonary disease (COPD) and smoker. He apparently had a stroke. Mother has hypertension and she is alive. SOCIAL HISTORY: She quit smoking in 2013. No alcohol. Deemed stable from cardiac circumstances. MEDICATIONS: - alprazolam 0.5 mg as needed - aspirin 81 mg daily - amlodipine 10 mg daily - Symbicort 160/4.5 two puffs twice a day - cefdinir 300 mg twice a day - Cipro/dexamethasone otic suspension four drops twice a day in each ear. - Colace 100 mg daily - Plaquenil 400 mg daily - levothyroxine 75 mcg daily - losartan 50 mg daily - Mag Ox 400 mg twice a day - tacrolimus 1 mg capsule take 3 mg in the morning on Saturday, Saturday and Saturday, 2 mg in the morning on Saturday, and Saturday and Saturday and 2 mg every evening. - Cellcept 250 mg twice a day - torsemide 10 mg three times a week up to 10 mg daily depending on edema. - multivitamins - potassium chloride 20 mEq twice a day - alprazolam 0.25 mg at night time. - pravastatin 40 mg daily - venlafaxine ER 75 mg daily - calcium carbonate - [id number] B12 1000 mcg daily - trazodone 100 mg tablets two tablets (200 mg) at bedtime - DuoNebs as needed ALLERGIES: SULFA caused skin rash, MORPHINE causes central nervous system side effects. REVIEW OF SYSTEMS: No hemoptysis, rectal bleeding or urinary bleeding. No neck stiffness, photophobia. There is no orthopnea or paroxysmal nocturnal dyspnea (PND), dyspnea on exertion or palpitations. PHYSICAL EXAMINATION: Blood pressure 96/60, pulse 119, respiratory rate 18, 98% oxygen saturation. General appearance: She looks mildly ill, resting in bed, fully conversant without dyspnea, wearing a mask. Pupils equal and reactive to light. HEENT grossly unremarkable. Lungs: Decreased breath sounds. No expiratory wheezes. Heart regular rate and rhythm. No murmur. Abdomen soft, tender, no masses. Extremities: No clubbing, cyanosis. Trace peripheral edema. Normal strength in the arms and legs. LABS: White count 4.1, hemoglobin 12.4, platelets 197. Troponins were negative. BNP 255. Sodium 140, potassium 3.7, BUN 14, creatinine 0.8. AB.45/36/74. Blood cultures pending. Respiratory panel is negative. Chest x-ray showed no active disease. CT scan of the chest. Initial report is "diffuse pattern of mild bronchial wall thickening, question bronchitis. Bilateral lower lobe and right upper lobe coarse band of discoid atelectasis left lower lobe above the left hemidiaphragms. Small left pleural effusion, moderate to large pericardial effusion seen on the study from 06/16/2018 (most recent CT scan at [facility]) have resolved. Otherwise no active disease". Coronavirus testing was ordered through the emergency room per protocol. IMPRESSION: 1. Respiratory illness of unknown etiology. Dr. Abreu in the emergency room spoke with Dr. Bellamy at the [facility] ([phone]) who was going to accept the patient in transfer but there are no beds. Recommended Zosyn and vancomycin empirically. She is supposed to be undergoing a mastectomy and sentinel node biopsy 07/03/2019. Hoping that we will be able to continue plans for transfer once a bed becomes available. Nebulized bronchodilator has been ordered. There is no infiltrates on the CT scan and the patient has no obvious risk factors for coronavirus COV-19. That testing was ordered through the emergency room and I will had that over to the infection control staff here. The patient is currently isolated as a consequence of this. Will ask infectious disease to weigh in. 2. History of orthotropic heart transplant: Will continue her current regimen for this. 3. Right breast cancer: Waiting for mastectomy, which might be delayed because of this illness. 4. Hypotension: She has received some saline. Will continue IV saline. She does not look volume overloaded by exam.
[2019-06-30] MEDS ORDERED: VANCOMYCIN HCL 1,000 MG, VIAL MATE ADAPTER 1 EACH in D5W 250 ML IV SCH (13:15)
[2019-06-30 13:40] VITALS: BP 113/80
[2019-06-30] MEDS ORDERED: LEVO75TA4 PO (13:45)
[2019-06-30] MEDS ORDERED: TRAZ-189 PO (13:45)
[2019-06-30] MEDS ORDERED: PANT40TA3 PO (13:45)
[2019-06-30] MEDS ORDERED: CYAN100049 PO (13:45)
[2019-06-30] MEDS ORDERED: MAGN400T2 PO (13:45)
[2019-06-30] MEDS ORDERED: TORS20TA2 PO (13:45)
[2019-06-30] MEDS ORDERED: VITMTA PO (13:45)
[2019-06-30] MEDS ORDERED: TACR1CAP3 PO ×2 (13:45)
[2019-06-30] MEDS ORDERED: VENL75CA2 PO (13:45)
[2019-06-30 14:54] LABS: BLOOD UREA NITROGEN 11 MG/DL (7-18); CALCIUM LEVEL 8.2 MG/DL (8.5-10.1); CARBON DIOXIDE LEVEL 26 MEQ/L (21-32); CHLORIDE LEVEL 110 MEQ/L (98-107); CREATININE FOR GFR 0.73 MG/DL (0.55-1.30); GLOMERULAR FILTRATION RATE > 60.0 (>51); GLUCOSE, FASTING 152 MG/DL (70-100); POTASSIUM SERUM 3.9 MEQ/L (3.5-5.1); SODIUM LEVEL 141 MEQ/L (136-145)
[2019-06-30] MEDS: PIPERACILLIN/TAZOBACTAM SOD 4.5 GM in D5W MINI-BAG PLUS 50 ML IV SCH ×2 (16:41→20:10)
[2019-06-30] MEDS: LACTOBACILLUS ACIDOPHILUS CAP (BACID) PO SCH (16:41)
[2019-06-30] MEDS: ENOXAPARIN 40 MG/0.4 ML SYRINGE (J1650) SC SCH (16:41)
[2019-06-30] MEDS ORDERED: VANCOMYCIN HCL 750 MG, VIAL MATE ADAPTER 1 EACH in D5W 250 ML IV SCH (17:00)
[2019-06-30] MEDS: HYDROXYCHLOROQUINE 200 MG TAB PO SCH (17:39)
[2019-06-30] MEDS: MULTIVITAMINS/MINERALS THERAP 1 TAB PO SCH (17:40)
[2019-06-30 18:00] VITALS: BP 127/79
[2019-06-30] MEDS ORDERED: VANCOMYCIN HCL 500 MG in D5W MINI-BAG PLUS 100 ML IV SCH (18:00)
[2019-06-30] MEDS: SYMBICORT 160/4.5MCG INHALER 6GM INH SCH (19:55)
[2019-06-30] MEDS: MAGNESIUM OXIDE 400 MG TAB (MAG-OX) PO SCH (20:09)
[2019-06-30] MEDS: CIPRODEX OTIC SUSP 7.5ML AU SCH (20:09)
[2019-06-30] MEDS ORDERED: LOSARTAN 50 MG TAB PO SCH (21:00)
[2019-06-30] MEDS ORDERED: traZODone 100 MG TAB PO SCH (21:00)
[2019-06-30] MEDS ORDERED: ALPRAZolam 0.5 MG TAB PO SCH (21:00)
[2019-06-30] MEDS ORDERED: PRAVASTATIN 20 MG TAB PO SCH (21:00)
[2019-06-30] MEDS ORDERED: TACROLIMUS 1 MG CAP (J7507) PO SCH (21:00)
[2019-06-30] MEDS ORDERED: amLODIPine 10 MG TAB PO SCH (21:00)
[2019-06-30] MEDS: MYCOPHENOLATE MOFETIL 250 MG CAP (J7517) PO SCH (21:06)
[2019-06-30 22:00] VITALS: BP 119/75
[2019-06-30] MEDS ORDERED: LEVALBUTEROL 1.25 MG/0.5 ML CONCENTRATE NEB INH PRN (23:15)
[2019-07-01 02:00] VITALS: BP 115/72
[2019-07-01] MEDS: PIPERACILLIN/TAZOBACTAM SOD 4.5 GM in D5W MINI-BAG PLUS 50 ML IV SCH ×2 (02:34→09:21)
[2019-07-01 06:00] VITALS: BP 126/77
[2019-07-01] MEDS ORDERED: LEVOTHYROXINE 75MCG TABLET (0.075MG) PO SCH (06:00)
[2019-07-01 06:13] LABS: HEMATOCRIT 36.3 % (36.0-47.0); HEMOGLOBIN 12.2 g/dl (12.0-15.5); MEAN CORPUSCULAR HEMOGLOBIN 32.3 pg (27.0-33.0); MEAN CORPUSCULAR HGB CONC 33.6 g/dl (32.0-36.5); PLATELET COUNT, AUTOMATED 200 10^3/uL (150-450); RED BLOOD COUNT 3.78 10^6/uL (4.00-5.40); WHITE BLOOD COUNT 3.1 10^3/uL (4.0-10.0)
[2019-07-01 06:35] LABS: BLOOD UREA NITROGEN 14 MG/DL (7-18); CALCIUM LEVEL 7.9 MG/DL (8.5-10.1); CARBON DIOXIDE LEVEL 27 MEQ/L (21-32); CHLORIDE LEVEL 110 MEQ/L (98-107); CREATININE FOR GFR 0.73 MG/DL (0.55-1.30); GLOMERULAR FILTRATION RATE > 60.0 (>51); GLUCOSE, FASTING 106 MG/DL (70-100); POTASSIUM SERUM 3.8 MEQ/L (3.5-5.1); SODIUM LEVEL 144 MEQ/L (136-145)
[2019-07-01] MEDS ORDERED: IPRATROPIUM 0.5MG/ALBUTEROL 2.5MG INH SOL UD 3ML (DUONEB)(J7620) NEB SCH (08:00)
[2019-07-01] MEDS: SYMBICORT 160/4.5MCG INHALER 6GM INH SCH (08:24)
[2019-07-01] MEDS ORDERED: ACETAMINOPHEN TAB 650MG DOSE (2X325MG) PO PRN (08:30)
--- NOTE | 2019-07-01 08:44 | IPNPDOC ---
Subjective Date Seen The patient was seen on 07/01/19. Subjective Chief Complaint/HPI URI Events since last encounter patient states Duoneb provided more relief than xopenex for breathing. c/o persistent cough also. The cough is contributing to PEREA, stomach and chest discomfort. Constitutional: Reports: Fever, Weakness, Fatigue; Denies: Chills, Night Sweats ENT: Reports: Head Aches, Post Nasal Drip, Sore Throat; Denies: Ear Pain, Dysphagia Skin: Denies: Rash, Lesions, Breakdown Pulmonary: Reports: Dyspnea, Cough, Pleuritic Chest Pain Cardiovascular: Denies: Chest Pain, Palpitations, Orthopnea Gastrointestinal: Denies: Nausea, Vomiting, Abdominal Pain, Diarrhea, Constipa tion Genitourinary: Denies: Dysuria, Frequency, Incontinence, Retention Psych: Reports: Mood Normal; Denies: Depression, Memory Issues Objective Physical Examination General Exam: Positive: Alert, No Acute Distress Eye Exam: Positive: PERRLA, Conjunctiva & lids normal, EOMI; Negative: Sclera icteric Neck Exam: Positive: Supple; Negative: JVD, thyromegaly Chest Exam: Positive: Clear to auscultation, Normal air movement, Wheezing (occasional expiratopry wheeze), Other (dry cough) Heart Exam: Positive: Rate Normal, Regular Rhythm, Normal S1, Normal S2; Negative: Murmurs, Rubs Extremity Exam: Positive: Normal pulses; Negative: Clubbing, Cyanosis, Edema Skin Exam: Positive: Nl turgor and temperature; Negative: Rash, Breakdown Psych Exam: Positive: Mental status NL Assessment /Plan Problems (1) Upper respiratory infection, viral Status: Acute Problem Text: respiratory panel negative. Flu swab was ordered and canceled. Will treat empirically with Zosyn. patient intolerant to Vancomycin due to significant reaction last evening. (2) COPD with acute exacerbation Status: Acute Problem Text: Solumedrol IV, Duoneb q 6 hrs in between Symbicort dosing. Zopenex prn SOB. (3) Breast CA Problem Text: Planned mastectomy with sentinel node biopsy 07/03/2019. [facility] and is [facility] a bed. (4) Hx of heart transplant Problem Text: S/p cardiac transplant 04/2018. Patient has been accepted as transfer to [facility] and is awaiting a bed. She has been in contact with her chest pain coordinator. (5) Immunocompromised state due to drug therapy Status: Chronic (6) Hypothyroid Status: Chronic (7) Hx of Clostridium difficile infection Status: Chronic Problem Text: at risk for C. diff given immune compromise and abx treatment. will monitor closely. Continue Bacid (8) HTN (hypertension) Status: Chronic Response to Treatment: Stable Problem Text: home meds ordered. (9) History of atrial fibrillation Status: Chronic Problem Text: NSR rate controlled. Plan/VTE VTE Prophylaxis Ordered?: Yes VS, I&O, 24H, Fishbone Vital Signs/I&O Vital Signs Date Time Temp Pulse Resp B/P (MAP) Pulse Ox O2 Delivery O2 Flow Rate FiO2 07/01/19 06:00 98.0 96 18 126/77 (93) 95 Room Air I&O- Last 24 Hours up to 6 AM 07/01/19 06:00 Intake Total 2095 ml Output Total 0 ml Balance 2095 ml Laboratory Data 24H LABS Laboratory Tests 2 06/30/19 14:11: Anion Gap 5L, Glomerular Filtration Rate > 60.0, Calcium Level 8.2L 06/30/19 20:19: Methicillin-Resist S.aureus DNA PCR NOT DETECTED 07/01/19 05:50: Anion Gap 7L, Glomerular Filtration Rate > 60.0, Calcium Level 7.9L, Nucleated Red Blood Cells % (auto) 0.0 07/01/19 08:12: CBC/BMP Laboratory Tests 06/30/19 14:11 07/01/19 05:50 Microbiology Microbiology 06/30/19 Respiratory Virus Panel (PCR) (JORDYN) - Final, Complete 06/30/19 Blood Culture - Preliminary, Resulted No growth after 24 hours . All specim... Josefina Lua [facility] Jul 01, 2019 08:44
[2019-07-01] MEDS ORDERED: ASPIRIN 81 MG ENTERIC TAB PO SCH (09:00)
[2019-07-01] MEDS ORDERED: VENLAFAXINE **XR** 75MG CAPSULE PO SCH (09:00)
[2019-07-01] MEDS ORDERED: amLODIPine 10 MG TAB PO SCH (09:00)
[2019-07-01] MEDS ORDERED: FLUTICASONE PROP 0.05% NASAL SPRAY 16 GM (FLONASE) NARES SCH (09:00)
[2019-07-01] MEDS ORDERED: CYANOCOBALAMIN 500 MCG TAB PO SCH (09:00)
[2019-07-01] MEDS ORDERED: TACROLIMUS 1 MG CAP (J7507) PO SCH (09:00)
[2019-07-01] MEDS ORDERED: PANTOPRAZOLE 40MG TAB (PROTONIX) PO SCH (09:00)
[2019-07-01] MEDS: MULTIVITAMINS/MINERALS THERAP 1 TAB PO SCH (09:22)
[2019-07-01] MEDS: LACTOBACILLUS ACIDOPHILUS CAP (BACID) PO SCH ×2 (09:22→13:21)
[2019-07-01] MEDS: MYCOPHENOLATE MOFETIL 250 MG CAP (J7517) PO SCH (09:23)
[2019-07-01] MEDS: HYDROXYCHLOROQUINE 200 MG TAB PO SCH (09:23)
[2019-07-01] MEDS: MAGNESIUM OXIDE 400 MG TAB (MAG-OX) PO SCH (09:23)
[2019-07-01] MEDS: ENOXAPARIN 40 MG/0.4 ML SYRINGE (J1650) SC SCH (09:24)
[2019-07-01 09:26] VITALS: BP 118/65
[2019-07-01] MEDS: CIPRODEX OTIC SUSP 7.5ML AU SCH (09:27)
[2019-07-01] MEDS: CEPACOL LOZENGE PO PRN ×2 (09:33→11:56)
[2019-07-01 10:00] VITALS: BP 117/65
[2019-07-01] MEDS ORDERED: RISATAB3 PO (11:24)
[2019-07-01] MEDS ORDERED: SORE15LO PO (11:24)
[2019-07-01] MEDS ORDERED: IPRA0.00 NEB (11:24)
[2019-07-01] MEDS ORDERED: ACET1TAB55 PO (11:24)
[2019-07-01] MEDS ORDERED: LEVA12INH INH (11:24)
[2019-07-01] MEDS ORDERED: FLUTISP NARES (11:24)
[2019-07-01] MEDS ORDERED: ZOSY1SOL6 IV (11:24)
[2019-07-01] MEDS ORDERED: LOVE1INJ SC (11:24)
[2019-07-01] MEDS ORDERED: ALBUTEROL SULFATE 2.5 MG/0.5 ML INH NEB SOLN NEB PRN (12:00)
--- NOTE | 2019-07-01 12:33 | DSES ---
DATE OF ADMISSION: 06/30/2019 DATE OF DISCHARGE: 07/01/2019 PRIMARY CARE PROVIDER: Dr. Dalton Payne ATTENDING PHYSICIAN: Dr. Dalton Payne HISTORY OF PRESENT ILLNESS: 54-year-old female with a past medical history significant for nonischemic cardiomyopathy with a cardiac transplant in April 2018 who presented to [facility] for complaints of worsening shortness of breath, fever and a presumed viral illness. Workup in the emergency department (ED) included a CT of the chest as well as chest x-ray. CT impression states diffuse pattern of mild bronchial wall thickening questioning bronchitis, bilateral lower lobes and of the right upper lobe. The patient was noted to have a coarse band of discoid atelectasis in the left lower lobe. The case was discussed with Dr. Bellamy at [place] in [place] and he agreed to transfer patient, however, beds were unavailable at that time. The patient was subsequently admitted to our facility and empiric therapy was started. HOSPITAL COURSE: The patient was placed on IV Solu-Medrol 80 mg every 8 hours along with Xopenex nebulizers. Her Symbicort inhaler was continued. The patient was placed on Zosyn as well as vancomycin for empiric antibiotic coverage, however, patient had a significant reaction to the vancomycin, which included significant erythema and itching. The vancomycin was stopped and the Zosyn was continued. The patient's routine blood pressure medications as well as her transplant medications were continued throughout her stay with us. This morning, the patient complained of worsening dyspnea. She was given a DuoNeb with good effect. She has not required oxygenation throughout her hospitalization. Her oxygen saturations have remained stable in the 95% range. Vital signs have remained stable. The patient had a T-max of 99.5 while hospitalized. She had a reported T-max of 103 at home. Most recent labs show a CBC with a white blood cell count of 3.1, hemoglobin 12.2, hematocrit 36.3. Renal function is stable with a creatinine of 0.73, BUN 14, sodium level 144. PHYSICAL EXAMINATION: The patient has occasional expiratory wheeze with diminished bibasilar breath sounds. HEENT: Neck is supple, without significant lymphadenopathy of jugular venous distention (JVD). Cardiovascular: Heart rate and rhythm are regular. Abdomen: Soft. Nontender. Bilateral lower extremities are without any edema. Neurologic: Patient is alert and oriented times three. Psych: She appears mildly anxious, however, conversation is appropriate and congruent. Eye contact is maintained. DISCHARGE DIAGNOSES: 1. Bronchitis with respiratory illness of unknown etiology. Respiratory panel was obtained in this facility. Influenza swab was inadvertently canceled upon arrival to the facility. We are repeating an influenza A and B swab prior to her transfer. She will continue on her Zosyn IV until she is evaluated at the [facility]. 2. History of heart transplant. Patient will continue her current medication regimen and will be transferred to the facility under the care of Dr. Lennox Bellamy for continuing management and treatment. 3. Patient with a history of right breast cancer. She is pending a mastectomy for this week at the same facility. They will evaluate this and consider her mastectomy appropriateness for scheduling in that facility. 4. Hypertension. The patient did have some mild hypotension while in the facility. She did receive IV fluids with stability of her blood pressure while here and she did take her antihypertensives this morning without incident. PLAN: The patient will be transferred to [facility] under the care of Dr. Lennox Bellamy. The patient is agreeable to transfer. This has been validated with the medical center. Dr. Dalton Payne is the attending physician and is agreeable to plan of care. The patient is discharged in stable condition from our facility. INES
[2019-07-01 12:47] LABS: INFLUENZA A AMPLIFICATION NEGATIVE (NEGATIVE); INFLUENZA B AMPLIFICATION POSITIVE (NEGATIVE)
[2019-07-01 14:00] VITALS: BP 102/64
[2019-07-01] MEDS ORDERED: OSELTAMIVIR PHOSPHATE 75 MG CAP (TAMIFLU) PO ONE (14:00)
[2019-07-01] MEDS ORDERED: OSELTAMIVIR PHOSPHATE 75 MG CAP (TAMIFLU) PO SCH (21:00)
--- NOTE | 2019-07-02 06:10 | ECGEPIP ---
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
[2019-07-02] MEDS ORDERED: TACROLIMUS 1 MG CAP (J7507) PO SCH (09:00)
== END 2019-07-01 14:54 | disposition other institution (70) | DRG 194 ==
LOC: M ED 05:18 → M ED INP 12:29 → ENRESERVTM 14:37 → ENRESERVDT 14:37 → M MSPAV 15:25
PROVIDERS: ADMIT Family Medicine; ATTEND Family Medicine
DX: J10.1 Influenza due to other identified influenza virus with other respiratory manifestations (principal); Z94.1 Heart transplant status; J44.1 Chronic obstructive pulmonary disease with (acute) exacerbation; D84.8 Other specified immunodeficiencies; J98.11 Atelectasis; J40 Bronchitis, not specified as acute or chronic; Z98.84 Bariatric surgery status; D64.9 Anemia, unspecified; Z88.2 Allergy status to sulfonamides; Z88.5 Allergy status to narcotic agent; Z79.82 Long term (current) use of aspirin; C50.911 Malignant neoplasm of unspecified site of right female breast; I10 Essential (primary) hypertension; Z90.79 Acquired absence of other genital organ(s); Z90.49 Acquired absence of other specified parts of digestive tract; E03.9 Hypothyroidism, unspecified; I48.91 Unspecified atrial fibrillation; Z79.01 Long term (current) use of anticoagulants; Z79.899 Other long term (current) drug therapy

== ENCOUNTER → 2019-07-07 | Outpatient (CLI) | payer MEDICARE ==
[~2019-07-07] MED LIST changes: +ACET1TAB55 PO; +CEFD1CAP8 PO; +CIPRODEX AU; +CYAN100049 PO; +FLUTISP NARES; +IPRA0.00 NEB; +KLOR20TA42 PO; +LEVA12INH INH; +LEVO75TA4 PO; +LOSA50TA88 PO; +MAGN400T2 PO; +MM S100C PO; +MYCO250C PO; +PANT40TA3 PO; +PLAQ200T4 PO; +RISATAB3 PO; +SORE15LO PO; +TORS10TA3 PO; +TRAZ-189 PO; +VENL75CA2 PO; +VITMTA PO; +ZOSY1SOL6 IV
[2019-07-07 08:23] LABS: BASO % 0.3 % (0.0-1.0); EOS # 0.1 10^3/uL (0.0-0.5); EOS % 1.5 % (0.0-3.0); HEMATOCRIT 43.8 % (36.0-47.0); HEMOGLOBIN 14.5 g/dl (12.0-15.5); LYMPH % 24.8 % (24.0-44.0); MEAN CORPUSCULAR HEMOGLOBIN 32.2 pg (27.0-33.0); MEAN CORPUSCULAR HGB CONC 33.1 g/dl (32.0-36.5); MEAN CORPUSCULAR VOLUME 97.3 fl (80.0-96.0); MONO # 0.4 10^3/uL (0.0-0.8); MONO % 10.5 % (0.0-5.0); NEUTROPHILS # 2.5 10^3/uL (1.5-8.5); NEUTROPHILS % 62.6 % (36.0-66.0); PLATELET COUNT, AUTOMATED 254 10^3/uL (150-450); WHITE BLOOD COUNT 3.9 10^3/uL (4.0-10.0)
[2019-07-07 08:55] LABS: ALBUMIN 3.7 GM/DL (3.2-5.2); ALT/SGPT 26 U/L (12-78); BILIRUBIN,TOTAL 0.4 MG/DL (0.2-1.0); BLOOD UREA NITROGEN 14 MG/DL (7-18); CALCIUM LEVEL 8.7 MG/DL (8.5-10.1); CARBON DIOXIDE LEVEL 32 MEQ/L (21-32); CHLORIDE LEVEL 105 MEQ/L (98-107); CREATININE FOR GFR 0.88 MG/DL (0.55-1.30); GLOMERULAR FILTRATION RATE > 60.0 (>51); GLUCOSE, FASTING 91 MG/DL (70-100); POTASSIUM SERUM 4.2 MEQ/L (3.5-5.1); SODIUM LEVEL 140 MEQ/L (136-145); TOTAL PROTEIN 6.9 GM/DL (6.4-8.2)
== END ==
LOC: M LAB 07:54
PROVIDERS: ATTEND Nurse Practitioner Acute Care
DX: Z94.1 Heart transplant status (principal)

== ENCOUNTER → 2019-07-27 | Outpatient (REF) | payer MEDICARE ==
[2019-07-27 10:38] LABS: BASO % 0.5 % (0.0-1.0); EOS # 0.1 10^3/uL (0.0-0.5); EOS % 2.1 % (0.0-3.0); HEMATOCRIT 40.8 % (36.0-47.0); HEMOGLOBIN 13.6 g/dl (12.0-15.5); LYMPH % 22.7 % (24.0-44.0); MEAN CORPUSCULAR HEMOGLOBIN 33.7 pg (27.0-33.0); MEAN CORPUSCULAR HGB CONC 33.3 g/dl (32.0-36.5); MONO # 0.6 10^3/uL (0.0-0.8); MONO % 13.7 % (0.0-5.0); NEUTROPHILS # 2.6 10^3/uL (1.5-8.5); NEUTROPHILS % 60.8 % (36.0-66.0); PLATELET COUNT, AUTOMATED 228 10^3/uL (150-450); RED BLOOD COUNT 4.04 10^6/uL (4.00-5.40); WHITE BLOOD COUNT 4.2 10^3/uL (4.0-10.0)
[2019-07-27 10:42] LABS: ALBUMIN 3.4 GM/DL (3.2-5.2); ALT/SGPT 21 U/L (12-78); BILIRUBIN,TOTAL 0.6 MG/DL (0.2-1.0); BLOOD UREA NITROGEN 16 MG/DL (7-18); CARBON DIOXIDE LEVEL 32 MEQ/L (21-32); CHLORIDE LEVEL 106 MEQ/L (98-107); GLOMERULAR FILTRATION RATE > 60.0 (>51); GLUCOSE, FASTING 89 MG/DL (70-100); MAGNESIUM LEVEL 1.9 MG/DL (1.8-2.4); SODIUM LEVEL 141 MEQ/L (136-145); TOTAL PROTEIN 6.5 GM/DL (6.4-8.2)
== END ==
LOC: M LAB REF 09:39
PROVIDERS: ATTEND Internal Medicine Advanced Heart Failure and Transplant Cardiology
DX: Z94.1 Heart transplant status (principal)

== ENCOUNTER → 2019-07-27 | Outpatient (REF) | payer MEDICARE ==
[2019-07-27 10:52] LABS: ESTRADIOL < 19.0 PG/ML; FOLLICLE STIMULATING HORMONE 61.8 mIU/mL
== END ==
LOC: M LAB REF 09:46
DX: C50.919 Malignant neoplasm of unspecified site of unspecified female breast (principal); Z94.1 Heart transplant status

== ENCOUNTER → 2019-08-17 | Outpatient (REF) | payer MEDICARE ==
[2019-08-17 09:21] LABS: BASO % 0.8 % (0.0-1.0); EOS # 0.1 10^3/uL (0.0-0.5); EOS % 2.1 % (0.0-3.0); HEMATOCRIT 43.9 % (36.0-47.0); HEMOGLOBIN 14.6 g/dl (12.0-15.5); LYMPH # 1.3 10^3/uL (1.5-5.0); LYMPH % 32.7 % (24.0-44.0); MEAN CORPUSCULAR HGB CONC 33.3 g/dl (32.0-36.5); MEAN CORPUSCULAR VOLUME 102.1 fl (80.0-96.0); MONO # 0.5 10^3/uL (0.0-0.8); MONO % 12.7 % (0.0-5.0); NEUTROPHILS % 51.4 % (36.0-66.0); PLATELET COUNT, AUTOMATED 266 10^3/uL (150-450); WHITE BLOOD COUNT 3.9 10^3/uL (4.0-10.0)
[2019-08-17 09:26] LABS: ALBUMIN 3.5 GM/DL (3.2-5.2); ALT/SGPT 19 U/L (12-78); BILIRUBIN,TOTAL 0.5 MG/DL (0.2-1.0); BLOOD UREA NITROGEN 19 MG/DL (7-18); CALCIUM LEVEL 8.7 MG/DL (8.5-10.1); CARBON DIOXIDE LEVEL 31 MEQ/L (21-32); CHLORIDE LEVEL 108 MEQ/L (98-107); GLOMERULAR FILTRATION RATE > 60.0 (>51); GLUCOSE, FASTING 97 MG/DL (70-100); MAGNESIUM LEVEL 1.8 MG/DL (1.8-2.4); POTASSIUM SERUM 4.7 MEQ/L (3.5-5.1); SODIUM LEVEL 142 MEQ/L (136-145); TOTAL PROTEIN 6.8 GM/DL (6.4-8.2)
== END ==
LOC: M LAB REF 08:55
PROVIDERS: ATTEND Nurse Practitioner Acute Care
DX: Z94.1 Heart transplant status (principal); Z79.899 Other long term (current) drug therapy; D89.9 Disorder involving the immune mechanism, unspecified

== ENCOUNTER → 2019-09-23 | Outpatient (CLI) | payer MEDICARE ==
[2019-09-23 07:44] LABS: BASO % 0.4 % (0.0-1.0); EOS # 0.1 10^3/uL (0.0-0.5); EOS % 2.4 % (0.0-3.0); LYMPH # 0.8 10^3/uL (1.5-5.0); LYMPH % 18.4 % (24.0-44.0); MEAN CORPUSCULAR HEMOGLOBIN 35.4 pg (27.0-33.0); MEAN CORPUSCULAR HGB CONC 34.3 g/dl (32.0-36.5); MEAN CORPUSCULAR VOLUME 103.2 fl (80.0-96.0); MONO # 0.5 10^3/uL (0.0-0.8); MONO % 11.5 % (0.0-5.0); NEUTROPHILS % 67.1 % (36.0-66.0); PLATELET COUNT, AUTOMATED 295 10^3/uL (150-450); RED BLOOD COUNT 3.39 10^6/uL (4.00-5.40); WHITE BLOOD COUNT 4.5 10^3/uL (4.0-10.0)
[2019-09-23 08:05] LABS: ALBUMIN 3.1 GM/DL (3.2-5.2); ALT/SGPT 17 U/L (12-78); BILIRUBIN,TOTAL 0.3 MG/DL (0.2-1.0); BLOOD UREA NITROGEN 11 MG/DL (7-18); CALCIUM LEVEL 8.1 MG/DL (8.5-10.1); CARBON DIOXIDE LEVEL 33 MEQ/L (21-32); CHLORIDE LEVEL 105 MEQ/L (98-107); CREATININE FOR GFR 0.78 MG/DL (0.55-1.30); GLOMERULAR FILTRATION RATE > 60.0 (>51); GLUCOSE, FASTING 78 MG/DL (70-100); MAGNESIUM LEVEL 1.8 MG/DL (1.8-2.4); POTASSIUM SERUM 3.4 MEQ/L (3.5-5.1); SODIUM LEVEL 141 MEQ/L (136-145); TOTAL PROTEIN 6.2 GM/DL (6.4-8.2)
== END ==
LOC: M LAB 06:46
PROVIDERS: ATTEND Nurse Practitioner Acute Care
DX: Z94.1 Heart transplant status (principal)

== ENCOUNTER → 2019-09-30 | Outpatient (CLI) | payer MEDICARE ==
[~2019-09-30] MED LIST changes: -COUM1TAB14 PO; +COUM4TAB8 PO; +OXYC1TAB23 PO
--- NOTE | 2019-10-08 01:11 | REP ---
ULTRASOUND GUIDANCE FOR RIGHT BREAST SEROMA DRAINAGE: Ultrasound guidance was provided for Dr. Cool, who performed ultrasound-guided drainage of seroma. Pre-aspiration images show the seroma to measure 6.6 x 2.0 x 3.6 cm.
== END ==
LOC: M WHC 07:29
PROVIDERS: ATTEND Surgery
DX: N64.89 Other specified disorders of breast (principal)

== ENCOUNTER 2019-10-05 16:39 | Inpatient (IN) | payer MEDICARE ==
[~2019-10-05] VITALS: Ht 170.2 cm; Wt 92.0 kg
[~2019-10-05 16:39] MED LIST changes: -OXYC1TAB23 PO
[2019-10-05 17:58] LABS: HEMATOCRIT 37.2 % (36.0-47.0); HEMOGLOBIN 12.2 g/dl (12.0-15.5); MEAN CORPUSCULAR HEMOGLOBIN 32.9 pg (27.0-33.0); MEAN CORPUSCULAR HGB CONC 32.8 g/dl (32.0-36.5); MEAN CORPUSCULAR VOLUME 100.3 fl (80.0-96.0); PLATELET COUNT, AUTOMATED 246 10^3/uL (150-450); RED BLOOD COUNT 3.71 10^6/uL (4.00-5.40); WHITE BLOOD COUNT 3.2 10^3/uL (4.0-10.0)
[2019-10-05] MEDS ORDERED: CALC-190 PO (18:26)
[2019-10-05 18:29] LABS: ATYPICAL LYMPH 11 % (0-5); EOSINOPHILS 5 % (0-3); LYMPHOCYTES 31 % (16-44); MONOCYTES 4 % (0-5); NEUTROPHILS 48 % (28-66); PLATELET ESTIMATE NORMAL (NORMAL)
[2019-10-05] MEDS ORDERED: ACETAMINOPHEN TAB 650MG DOSE (2X325MG) PO PRN (18:30)
[2019-10-05] MEDS ORDERED: IPRA0.00 NEB (18:30)
[2019-10-05] MEDS ORDERED: RISATAB3 PO (18:30)
[2019-10-05] MEDS ORDERED: IPRATROPIUM 0.5MG/ALBUTEROL 2.5MG INH SOL UD 3ML (DUONEB)(J7620) NEB PRN (18:45)
--- NOTE | 2019-10-05 19:03 | HPEPDOC ---
[facility] Medical History & Physical Date of Admission Oct 05, 2019 Date of Service: Oct 05, 2019 Primary Care Physician: Dalton Payne MD Attending Physician: IVANIA NEWBERRY MD History and Physical CHIEF COMPLAINT: Chest pain HISTORY OF PRESENT ILLNESS: Patient is a 54-year-old female with a past medical history significant for nonischemic cardiomyopathy status post transplant in 2019 and recently diagnosed breast cancer who presented to the [facility] emergency department with a complaint of chest pain. Patient had recently received a right sided mastectomy with Dr. Cool. She had developed a seroma and subsequently had drains placed on her right. One of the drains was successfully removed previously. Today the patient was having her second drain removed. During the removal of the second drain the patient had noted pain on the right side of her chest. She developed a "gripping feeling" as well as shortness of breath. The patient was subsequently sent to the ER for further evaluation In the ER the patient was vitally stable. Given her cardiac history and past medical the patient was admitted to hospitalist service for further evaluation and management PAST MEDICAL HISTORY: 1. Nonischemic Cardiomyopathy s/p heart transplant in 2019 2. Breast Cancer s/p right mastectomy 3. Hypertension 4. GERD 5. Asthma 6. Anxiety PAST SURGICAL HISTORY: 1. Heart Transplant 2. Gastric Sleeve 3. Right Breast Mastectomy 4. Cholecystectomy 5. Tonsillectomy SOCIAL HISTORY: Patient lives at home with her fiance. She is independant with her ADLs. She is a former smoker. She quit 6 years ago. She started smoking at the age of 18. She drinks alcohol on occasion. She denies any IV or illicit drug use. She is currently not working due to her illness FAMILY HISTORY: Patient denies any family history of heart attack or stroke. Her brother has diabetes. Her sister has carcinoid of the lung. ALLERGIES: Please see below. REVIEW OF SYSTEMS: CONSTITUTIONAL: Denies fevers, chills, unintentional weightloss or weight gain. HEENT: Denies difficulty swallowing. Admits to headaches occasionally CARDIOVASCULAR: Denies chest pain currently. Admits to chest pain earlier described as gripping. Denies palpitations RESPIRATORY: Denies current shortness of breath. Denies cough or wheeze GASTROINTESTINAL: Denies abdominal pain. Denies nausea, vomiting, diarrhea, or constipation GENITOURINARY: Denies dysuria, increased frequency or urgency SKIN: Denies rashes or lesions MUSCULOSKELETAL: Simon muscle weakness NEUROLOGICAL: Denies changes in gait or speech PSYCHIATRIC: Admits to anxiety ENDOCRINE: Denies heat intolerance or cold intolerance. Denies diabetes HEMATOLOGIC/LYMPHATIC: Denies easy bruising or bleeding. Denies history of DVT or PE HOME MEDICATIONS: Please see below. PHYSICAL EXAMINATION: VITAL SIGNS: Temperature 97.5, pulse 89, respiratory rate 17, blood pressure 137/87, pulse oximetry 97% on room air. GENERAL APPEARANCE: Patient is awake, alert, and oriented. Lying comfortably in stretcher. Does not appear to be in acute distress HEENT: Atraumatic, normocephalic. Eyes are nonicteric. Trachea is midline CARDIOVASCULAR: Normal S1, S2. Regular rate and rhythm. No clicks rubs or murmurs. CHEST: Right mastectomy scar present. Drain in place on right chest. No surrounding erythema LUNGS: Clear vesicular breath sounds bilaterally. Good respiratory effort. No wheezes, rhonchi or rales ABDOMEN: Soft, nondistended. Nontender. normoactive bowel sounds throughout . EXTREMITIES: No edema. Full and equal pulses bilaterally NEUROLOGICAL: No focal neurological deficits PSYCHIATRIC: Mood and affect appear appropriate LABORATORY DATA: See below. IMAGING: Report pending; however does not appear to be an acute cardiopulmonary process MICROBIOLOGY: Please see below. ASSESSMENT: Patient is a 54 year old female with a past medical history significant for nonischemic cardiomyopathy s/p heart transplant and recent diagnosis of breast cancer s/p right mastectomy who presented to [facility] after developing chest pain and shortness of breath during removal of her right breast seroma drainage tube . PLAN: 1. Chest pain likely noncardiac -Does not appear to be cardiac in origin. Located on the right side. Patient developed pain during removal of her seroma drain. She was short of breath at one point. -Cardiac troponin negative. Will get one more set to trend -Chest X-ray is negative for an acute process -EKG is normal sinus rhythm without change from prior -Will place on tele overnight -Will avoid NSAIDs given patients history of gastric sleeve -Morphine and Tylenol for pain -Cardiac diet for now. NPO after midnight for possible procedure 2. Right chest seroma drain -Patient will need her seroma drain removed. Dr. Cool to possibly take patient to OR tomorrow after clearance with [facility] 3. History of nonischemic Cardiomyopathy s/p heart transplant -Currently no signs of graft rejection. -Continue patients home medications 4. Hypertension -Will continue patients home medications -Currently normotensive 5. Anxiety -Continue patients home medications 6. GERD -Continue home protonix 7. Asthma -Continue patients home inhalers -Currently stable and not in exacerbation 8. DVT prophylaxis -Mechanical Vital Signs Vital Signs Date Time Temp Pulse Resp B/P (MAP) Pulse Ox O2 Delivery O2 Flow Rate FiO2 10/05/19 18:19 97.5 89 17 137/87 (104) 97 Room Air Laboratory Data Labs 24H Laboratory Tests 2 10/05/19 17:47: Neutrophils (%) (Auto) , Nucleated Red Blood Cells % (auto) 0.0, Neutrophils 48, Band Neutrophils 1, Lymphocytes (Manual) 31, Monocytes (Manual) 4, Eosinophils (Manual) 5H, Atypical Lymphocytes 11H, Red Blood Cell Morphology NORMAL, Platelet Estimate NORMAL 10/05/19 17:48: POC Glucose (Misc Panel) 83, POC Sodium (Misc Panel) 142, POC Potassium (Misc Panel) 3.9, POC Chloride (Misc Panel) 98, POC Total CO2 (Misc Panel) 29.0H, POC Blood Urea Nitrogen (Misc Panel 14, POC Ionized Calcium (Misc Panel) 4.7, POC Creatinine (Misc Panel) 0.9, POC Hematocrit (Misc Panel) 36.0L 10/05/19 17:50: POC Troponin I (Misc) 0.00 CBC/BMP Laboratory Tests 10/05/19 17:47 Home Medications Scheduled Amlodipine Besylate (Norvasc) 10 Mg Tab, 10 MG PO DAILY Aspirin (Aspir 81) 81 Mg Tab, 81 MG PO DAILY Budesonide/Formoterol (Symbicort 160-4.5 Mcg Inhaler) 60 Puff/Inhaler Aers, 2 PUFF INH BID Calcium Carbonate/Vitamin D3 (Calcium 1,000 + D3 Caplet) 1 Each Tablet, 1 TAB PO BID Cyanocobalamin (Vitamin B-12) (Vitamin B-12) 1,000 Mcg Tablet, 1,000 MCG PO DAILY Ipratropium/Albuterol Sulfate (Iprat-Albut 0.5-3(2.5) mg/3 ml) 3 Ml Ampul.neb, 3 ML NEB RQ6H L.acidoph/L.bulg/B.bif/S.therm (Annie-Bid Caplet) 1 Each Tablet, 2 EA PO WM Levothyroxine Sodium (Levothyroxine Sodium) 75 Mcg Tablet, 75 MCG PO DAILY Losartan Potassium (Losartan Potassium) 50 Mg Tablet, 50 MG PO QHS Magnesium Oxide (Magnesium Oxide) 400 Mg Tablet, 400 MG PO BID Multivitamins (Thera M Plus Tablet) 1 Each Tablet, 1 TAB PO DAILY Mycophenolate Mofetil (Mycophenolate Mofetil) 250 Mg Capsule, 250 MG PO BID Pantoprazole Sodium (Pantoprazole Sodium) 40 Mg Tablet.dr, 40 MG PO DAILY Potassium Chloride (Klor-Con M20) 20 Meq Tab.er.prt, 20 MEQ PO BID TAKES AT NOON/1800 Pravastatin Sodium (Pravastatin Sodium) 40 Mg Tab, 40 MG PO QHS Tacrolimus (Tacrolimus) 1 Mg Capsule, 3 MG PO 3XW MON/WED/FRI MORNING Tacrolimus (Tacrolimus) 1 Mg Capsule, 2 MG PO 4XWK TUE//SAT/SUN MORNINGS Tacrolimus (Tacrolimus) 1 Mg Capsule, 2 MG PO QHS Torsemide (Torsemide) 20 Mg Tablet, 10 MG PO DAILY Trazodone HCl (Trazodone HCl) 100 Mg Tablet, 200 MG PO QHS Venlafaxine HCl (Venlafaxine HCl ER) 75 Mg Cap.er.24h, 75 MG PO DAILY Scheduled PRN Acetaminophen (Acetaminophen) 325 Mg Tablet, 650 MG PO Q6HP PRN for PAIN / FEVER Alprazolam (Alprazolam) 0.5 Mg Tablet, 0.5 MG PO BIDP PRN for ANXIETY Allergies Coded Allergies: Sulfa (Sulfonamide Antibiotics) (Verified Allergy, Intermediate, RASH AND HIVES, 06/30/19) vancomycin (Verified Adverse Reaction, Intermediate, rash on chest, head felt hot, 07/01/19) morphine (Verified Adverse Reaction, Mild, lethargy, 06/30/19) pseudoephedrine (Unverified Adverse Reaction, Unknown, CONTRAINDICATION, 10/05/19) CONTRAINDICATION A-FIB/CHADSVASC A-FIB History Current/History of A-Fib/PAF?: No DOMINICK DUGAN DO Oct 05, 2019 19:03
--- NOTE | 2019-10-05 20:15 | CR.PDOC ---
Plastic Surgery Consultation Date of Consultation 10/05/19 History and Physical HISTORY OF PRESENT ILLNESS: Ms. Hagan is a 54 y o F with PMH of cardiac transplantation 04/2018 and recently diagnosed R breast Ca ([facility]) 04/2019. She has R mastectomy at [facility] with Dr Iglesias on 09/11/2019. She presented to the clinic today for removal of second right axillary drain and aspiration of her recurring R mastectomy site seroma. Previous drain was removed last week without issues. Attempt was made today to remove the remaining drain however it seems it is stuck for some reason. Due to intense pain, the further attempts to remove the drain in the clinic were aborted. Ultrasound guided aspiration of right medial chest wall seroma was done suc cessfully in the office. Shortly after completion of procedure patient started to complain of chest heaviness and pain. She also became dizzy. Her vitals were stable. Due to cardiac transplant history, EMS was called to transfer patient to the ED for further evaluation. Attempt was made to contact Dr Iglesias, surgeon from [facility] however I could not reach her. Cardiac nursing coordinator from [facility] was informed about the situation. ED will contact them with additional details. She is still on ASA for her cardiac issues. PAST MEDICAL HISTORY: 1. Nonischemic Cardiomyopathy s/p heart transplant in 2019 2. Breast Cancer s/p right mastectomy 3. Hypertension 4. GERD 5. Asthma 6. Anxiety PAST SURGICAL HISTORY: 1. Heart Transplant 2. Gastric Sleeve 3. Right Breast Mastectomy 4. Cholecystectomy 5. Tonsillectomy SOCIAL HISTORY: She is a former smoker. She quit 6 years ago. ALLERGIES: Please see below. FAMILY HISTORY: see chart HOME MEDICATIONS: Please see below. REVIEW OF SYSTEMS: GENERAL: feels dizzy CARDIOVASCULAR: chest pain and heaviness. MUSCULOSKELETAL: pain in R axilla and R lateral chest site SKIN: R medial chest wall seroma NEUROLOGIC: no PEREA PULMONARY: [former smoker GASTROINTESTINAL: GERD GENERAL: in mild distress due to pain CARDIO: mild tachycardia PULM: no wheezing AXILLA: R axillary drain in place with now some s/s drainage, scar tissue in upper axilla CHEST: R chest wall mastectomy site, well healed ABDOMEN: Abdomen is soft, EXTREMITIES: no lymphedema LABORATORY DATA: Please see below. IMPRESSION: 54 y o F w PMHX of cardiac transplant and recent R breast CA, s/s R simple mastectomy and ALND at [facility] 09/11/19 , admitted for evaluation of chest pain and chest heaviness and for likely intraop drain removal. Initial cardiac workup negative. CRX without PTX PLAN: - admitted to medicine for cardiac monitoring - will reach out to [facility]/ Abdirizak Dewitt axillary drain will need to be removed intraop - keep NPO after MN for possible add on tomorrow PM, will provide update in EMR - greatly appreciate Medical team help in management of this patient - Case discussed with Dr Eugene from Medical team Vital Signs Vital Signs Date Time Temp Pulse Resp B/P (MAP) Pulse Ox O2 Delivery O2 Flow Rate FiO2 10/05/19 18:19 97.5 89 17 137/87 (104) 97 Room Air Laboratory Data Labs 24H Laboratory Tests 2 10/05/19 17:47: Neutrophils (%) (Auto) , Nucleated Red Blood Cells % (auto) 0.0, Neutrophils 48, Band Neutrophils 1, Lymphocytes (Manual) 31, Monocytes (Manual) 4, Eosinophils (Manual) 5H, Atypical Lymphocytes 11H, Red Blood Cell Morphology NORMAL, Platelet Estimate NORMAL 10/05/19 17:48: POC Glucose (Misc Panel) 83, POC Sodium (Misc Panel) 142, POC Potassium (Misc Panel) 3.9, POC Chloride (Misc Panel) 98, POC Total CO2 (Misc Panel) 29.0H, POC Blood Urea Nitrogen (Misc Panel 14, POC Ionized Calcium (Misc Panel) 4.7, POC Creatinine (Misc Panel) 0.9, POC Hematocrit (Misc Panel) 36.0L 10/05/19 17:50: POC Troponin I (Misc) 0.00 CBC/BMP Laboratory Tests 10/05/19 17:47 Home Medications Scheduled Amlodipine Besylate (Norvasc) 10 Mg Tab, 10 MG PO DAILY, (Reported) Aspirin (Aspir 81) 81 Mg Tab, 81 MG PO DAILY, (Reported) Budesonide/Formoterol (Symbicort 160-4.5 Mcg Inhaler) 60 Puff/Inhaler Aers, 2 PUFF INH BID, (Reported) Calcium Carbonate/Vitamin D3 (Calcium 1,000 + D3 Caplet) 1 Each Tablet, 1 TAB PO BID, (Reported) Cyanocobalamin (Vitamin B-12) (Vitamin B-12) 1,000 Mcg Tablet, 1,000 MCG PO DA FORTINO, (Reported) L.acidoph/L.bulg/B.bif/S.therm (Annie-Bid Caplet) 1 Each Tablet, 2 TAB PO WM, (Reported) Levothyroxine Sodium (Levothyroxine Sodium) 75 Mcg Tablet, 75 MCG PO DAILY, (Reported) Losartan Potassium (Losartan Potassium) 50 Mg Tablet, 50 MG PO QHS, (Reported) Magnesium Oxide (Magnesium Oxide) 400 Mg Tablet, 400 MG PO BID, (Reported) Multivitamins (Thera M Plus Tablet) 1 Each Tablet, 1 TAB PO DAILY, (Reported) Mycophenolate Mofetil (Mycophenolate Mofetil) 250 Mg Capsule, 250 MG PO BID, (Reported) Pantoprazole Sodium (Pantoprazole Sodium) 40 Mg Tablet.dr, 40 MG PO DAILY, (Reported) Potassium Chloride (Klor-Con M20) 20 Meq Tab.er.prt, 20 MEQ PO BID, (Reported) TAKES AT NOON/1800 Pravastatin Sodium (Pravastatin Sodium) 40 Mg Tab, 40 MG PO QHS, (Reported) Tacrolimus (Tacrolimus) 1 Mg Capsule, 2 MG PO BID, (Reported) Torsemide (Torsemide) 20 Mg Tablet, 10 MG PO DAILY, (Reported) Trazodone HCl (Trazodone HCl) 100 Mg Tablet, 200 MG PO QHS, (Reported) Venlafaxine HCl (Venlafaxine HCl ER) 75 Mg Cap.er.24h, 75 MG PO DAILY, (Reported) Scheduled PRN Acetaminophen (Acetaminophen) 325 Mg Tablet, 650 MG PO Q6HP PRN for PAIN / FEVER Alprazolam (Alprazolam) 0.5 Mg Tablet, 0.5 MG PO BIDP PRN for ANXIETY, (Reported) Ipratropium/Albuterol Sulfate (Iprat-Albut 0.5-3(2.5) mg/3 ml) 3 Ml Ampul.neb, 3 ML NEB Q6HP PRN for SHORTNESS OF BREATH, (Reported) Allergies Coded Allergies: Sulfa (Sulfonamide Antibiotics) (Verified Allergy, Intermediate, RASH AND HIVES, 06/30/19) vancomycin (Verified Adverse Reaction, Intermediate, rash on chest, head felt hot, 07/01/19) morphine (Verified Adverse Reaction, Mild, lethargy, 06/30/19) pseudoephedrine (Unverified Adverse Reaction, Unknown, CONTRAINDICATION, 6/8/20) CONTRAINDICATION BENSON LUJAN DO Oct 05, 2019 19:59
[2019-10-05] MEDS: MAGNESIUM OXIDE 400 MG TAB (MAG-OX) PO SCH (21:00)
--- NOTE | 2019-10-05 21:10 | ECGEPIP ---
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
[2019-10-05 21:30] VITALS: BP 122/90
[2019-10-05] MEDS: traZODone 100 MG TAB PO SCH (21:50)
[2019-10-05] MEDS: TACROLIMUS 1 MG CAP (J7507) PO SCH (21:50)
[2019-10-05] MEDS: MYCOPHENOLATE MOFETIL 250 MG CAP (J7517) PO SCH (21:50)
[2019-10-05] MEDS: PRAVASTATIN 20 MG TAB PO SCH (21:50)
[2019-10-05] MEDS: LOSARTAN 50MG TABLET PO SCH (21:58)
[2019-10-05] MEDS: ALPRAZolam 0.5 MG TAB PO PRN (21:58)
[2019-10-05] MEDS: SYMBICORT 160/4.5MCG INHALER 6GM INH SCH (22:20)
[2019-10-06] VITALS (7 sets, daily range): BP systolic 107–138; BP diastolic 65–83
--- NOTE | 2019-10-06 02:17 | REP ---
SINGLE-VIEW CHEST, 10/05/2019: INDICATION: Chest pain. COMPARISON: 06/30/2019 FINDINGS: Median sternotomy, elevated left hemidiaphragm, and discoid atelectasis of the left lung base are re-demonstrated. Heart size is at the upper limits of normal. The lungs are free of an acute process. IMPRESSION: Essentially stable exam compared to 06/30/2019. No acute process. MTDD
[2019-10-06 05:41] LABS: HEMATOCRIT 35.5 % (36.0-47.0); HEMOGLOBIN 12.1 g/dl (12.0-15.5); MEAN CORPUSCULAR HEMOGLOBIN 34.1 pg (27.0-33.0); MEAN CORPUSCULAR HGB CONC 34.1 g/dl (32.0-36.5); PLATELET COUNT, AUTOMATED 234 10^3/uL (150-450); RED BLOOD COUNT 3.55 10^6/uL (4.00-5.40); WHITE BLOOD COUNT 4.2 10^3/uL (4.0-10.0)
[2019-10-06] MEDS: LEVOTHYROXINE 75MCG TABLET (0.075MG) PO SCH (05:46)
[2019-10-06 06:01] LABS: BLOOD UREA NITROGEN 13 MG/DL (7-18); CALCIUM LEVEL 8.2 MG/DL (8.5-10.1); CARBON DIOXIDE LEVEL 29 MEQ/L (21-32); CHLORIDE LEVEL 111 MEQ/L (98-107); CREATININE FOR GFR 0.75 MG/DL (0.55-1.30); GLOMERULAR FILTRATION RATE > 60.0 (>51); GLUCOSE, FASTING 83 MG/DL (70-100); POTASSIUM SERUM 3.9 MEQ/L (3.5-5.1); SODIUM LEVEL 145 MEQ/L (136-145)
[2019-10-06] MEDS: SYMBICORT 160/4.5MCG INHALER 6GM INH SCH ×2 (07:38→19:34)
[2019-10-06] MEDS ORDERED: fentaNYL 100 MCG/2 ML INJECTION (J3010) As Ordered ONE (08:37)
[2019-10-06] MEDS ORDERED: propofoL 200 MG/20 ML VIAL As Ordered ONE (08:38)
[2019-10-06] MEDS: MULTIVITAMINS/MINERALS THERAP 1 TAB PO SCH (08:47)
[2019-10-06] MEDS: MAGNESIUM OXIDE 400 MG TAB (MAG-OX) PO SCH ×2 (08:47→19:59)
[2019-10-06] MEDS: TACROLIMUS 1 MG CAP (J7507) PO SCH ×2 (08:47→21:02)
[2019-10-06] MEDS: PANTOPRAZOLE 40MG TAB (PROTONIX) PO SCH (08:47)
[2019-10-06] MEDS: VENLAFAXINE **XR** 75MG CAPSULE PO SCH (08:47)
[2019-10-06] MEDS: MYCOPHENOLATE MOFETIL 250 MG CAP (J7517) PO SCH ×2 (08:47→21:02)
[2019-10-06] MEDS: CYANOCOBALAMIN 500 MCG TAB PO SCH (08:47)
[2019-10-06] MEDS: amLODIPine 10 MG TAB PO SCH (08:47)
[2019-10-06] MEDS ORDERED: BUPIVACAINE HCL 0.25% 30ML VIAL As Ordered ONE (08:55)
[2019-10-06] MEDS ORDERED: LIDOCAINE 1% SDV 30ML VIAL As Ordered ONE (08:55)
--- NOTE | 2019-10-06 09:33 | IPNPDOC ---
Text Note Date of Service The patient was seen on 10/06/19. NOTE SUBJECTIVE: -No issues overnight -Admitted from breast clinic with panic attack with chest pain during trial to remove breast drain. Cardiac workup was negative for ACS. PHYSICAL EXAMINATION: VITAL SIGNS: HDS, afebrile GENERAL APPEARANCE: NAD HEENT: Atraumatic, normocephalic. Eyes are nonicteric. Trachea is midline CARDIOVASCULAR: Normal S1, S2. Regular rate and rhythm. No clicks rubs or murmurs. CHEST: Right mastectomy scar present. Drain in place on right chest. No surrounding erythema LUNGS: CTAB, good effort and air movement ABDOMEN: Normoactive bowel sounds, nondistended. Nontender. normoactive bowel sounds throughout . EXTREMITIES: No edema. Full and equal pulses bilaterally NEUROLOGICAL: No focal neurological deficits PSYCHIATRIC: AOx3 LABORATORY DATA: Reviewed WBC 4.2 hgb 12.1 platelets 234 na 145 K 3.9 Cr 0.75 troponin negative x 1 EKG NSR Covid-19 pending IMAGING: Admission CXR without acute cardiopulmonary process MICROBIOLOGY: Please see below. ASSESSMENT: 54 year old W with a past medical history significant for nonischemic cardiomyopathy s/p heart transplant and recent diagnosis of breast cancer s/p right mastectomy who presented to [facility] after developing chest pain and shortness of breath during removal of her right breast seroma drainage tube and had a grossly negative ACS workup, otherwise clinically stable and cleared for her low risk surgery of her drain removal with breast surgeon. . PLAN: Preop clearance: RCRI: 1 point for history NICM with 6% risk of , NH or cardiac arrest in 30d -EKG was wnl -Telemetry with sinus rhythm -troponin negative -resolved chest pain -comfortably on room air -CBC and BMP wnl -CXR was without acute cardiopulmonary pathology -At this time, Ms. Hagan has been medically cleared for drain removal surgery -To continue avoiding NSAIDs given patients history of gastric sleeve -NPO for surgery 2. Right chest seroma drain -Patient scheduled for drain removal Dr. Cool today 3. History of nonischemic Cardiomyopathy s/p heart transplant -Currently no signs of graft rejection or decompensated HF -Continue patients home medications 4. Hypertension -Will continue patients home medications -Currently normotensive 5. Anxiety -Continue patients home medications 6. GERD -Continue home protonix 7. Asthma -Continue patients home inhalers -Currently stable and not in exacerbation 8. DVT prophylaxis -Mechanical Dispo: will likely watch overnight post drain removal, with plan for discharge home tomorrow AM if stable. VS,Fishbone, I+O VS, Fishbone, I+O Laboratory Tests 10/05/19 17:47 10/06/19 05:28 Vital Signs Date Time Temp Pulse Resp B/P (MAP) Pulse Ox O2 Delivery O2 Flow Rate FiO2 10/06/19 08:47 89 119/73 10/06/19 08:00 97.6 20 97 Room Air ELMO MONTOYA MD Oct 06, 2019 09:33
--- NOTE | 2019-10-06 09:59 | IPNPDOC ---
Subjective General Date Seen: Oct 06, 2019 Subject Chief Complaint/History The patient is a 54-year-old female with PMHx of cardiac transplant admitted with a reason for visit of Chest Pain after attempted R axillary CHRISTINE removal in the office and Right chest seroma drainage. She was evaluated in the ER. Cardiac and thoracic evaluations were normal. Pain is better today. Aspirated seroma site is fine Current Medications Current Medications Current Medications Medications (Trade) Dose Ordered Sig/Tawny Route PRN Reason Start Time Stop Time Status Last Admin Dose Admin Acetaminophen (Tylenol Tab) 650 mg Q6HP PRN PO PAIN / FEVER 10/05/19 18:30 10/06/19 05:46 Albuterol/ Ipratropium (Duoneb (Ipr 0.5mg/Alb 2.5mg)) 3 ml Q6HP PRN NEB SHORTNESS OF BREATH 10/05/19 18:45 Alprazolam (Xanax) 0.5 mg BIDP PRN PO ANXIETY 10/05/19 18:45 10/05/19 21:58 Amlodipine Besylate (Norvasc) 10 mg DAILY PO 10/06/19 09:00 10/06/19 08:47 Budesonide/ Formoterol Fumarate (Symbicort 160/ 4.5mcg) 2 puff RBID INH 10/05/19 20:00 10/06/19 07:38 Cyanocobalamin (Vitamin B12) 1,000 mcg DAILY PO 10/06/19 09:00 10/06/19 08:47 Home Med (Med Rec Complete!) ASDIRECTED XX 10/05/19 18:45 10/05/19 18:34 DC Levothyroxine Sodium (Synthroid) 75 mcg DAILY@0600 PO 10/06/19 06:00 10/06/19 05:46 Losartan Potassium (Cozaar) 50 mg QHS PO 10/05/19 21:00 10/05/19 21:58 Magnesium Oxide (Mag-Ox) 400 mg BID PO 10/05/19 21:00 10/06/19 08:47 Multivitamins (Theragram-M) 1 tab DAILY PO 10/06/19 09:00 10/06/19 08:47 Mycophenolate Mofetil (Cellcept) 250 mg BID PO 10/05/19 21:00 10/06/19 08:47 Pantoprazole Sodium (Protonix) 40 mg DAILY PO 10/06/19 09:00 10/06/19 08:47 Pravastatin Sodium (Pravachol) 40 mg QHS PO 10/05/19 21:00 10/05/19 21:50 Tacrolimus (Prograf) 2 mg BID PO 10/05/19 21:00 10/06/19 08:47 Torsemide (Demadex) 10 mg DAILY PO 10/06/19 09:00 Trazodone HCl (Desyrel) 200 mg QHS PO 10/05/19 21:00 10/05/19 21:50 Venlafaxine HCl (Effexor Xr) 75 mg DAILY PO 10/06/19 09:00 10/06/19 08:47 Allergies Coded Allergies: Sulfa (Sulfonamide Antibiotics) (Verified Allergy, Intermediate, RASH AND HIVES, 06/30/19) vancomycin (Verified Adverse Reaction, Intermediate, rash on chest, head felt hot, 07/01/19) morphine (Verified Adverse Reaction, Mild, lethargy, 06/30/19) pseudoephedrine (Unverified Adverse Reaction, Unknown, CONTRAINDICATION, 10/05/19) CONTRAINDICATION Objective Physical Examination Examination GENERAL APPEARANCE:Patient seen, laying in bed, awake, alert, and oriented. Comfortable, in no acute distress. SKIN: Warm and moist. BREAST: right chest wall with mastectomy scar. There is CHRISTINE in place with serous drainage. There is some tenderness in the area. No palpable hematoma. Medial seroma aspiration site is flat and no erythema is present. HEENT: Normocephalic, NECK: Supple, LUNGS: breathing comfortably on room air HEART: mildly tachy, chronic. ABDOMEN: Abdomen is soft, EXTREMITIES: no edema Vital Signs Vital Signs Date Time Temp Pulse Resp B/P (MAP) Pulse Ox O2 Delivery O2 Flow Rate FiO2 10/06/19 08:47 89 119/73 10/06/19 08:00 97.6 20 97 Room Air Laboratory Data Labs 24H Laboratory Tests 2 10/05/19 17:47: Neutrophils (%) (Auto) , Nucleated Red Blood Cells % (auto) 0.0, Neutrophils 48, Band Neutrophils 1, Lymphocytes (Manual) 31, Monocytes (Manual) 4, Eosinophils (Manual) 5H, Atypical Lymphocytes 11H, Red Blood Cell Morphology NORMAL, Platelet Estimate NORMAL 10/05/19 17:48: POC Glucose (Misc Panel) 83, POC Sodium (Misc Panel) 142, POC Potassium (Misc Panel) 3.9, POC Chloride (Misc Panel) 98, POC Total CO2 (Misc Panel) 29.0H, POC Blood Urea Nitrogen (Misc Panel 14, POC Ionized Calcium (Misc Panel) 4.7, POC Creatinine (Misc Panel) 0.9, POC Hematocrit (Misc Panel) 36.0L 10/05/19 17:50: POC Troponin I (Misc) 0.00 10/05/19 21:54: Troponin I < 0.02 10/06/19 05:28: Nucleated Red Blood Cells % (auto) 0.0, Anion Gap 5L, Glomerular Filtration Rate > 60.0, Calcium Level 8.2L 10/06/19 08:52: CBC/BMP Laboratory Tests 10/05/19 17:47 10/06/19 05:28 Imaging Studies CXR w/u PTX Impression 54 y o lady with PMHx of cardiac transplant 04/2018, on immunosuppression and ASA, with R breast CA, s/p R simple mastectomy, R SLNBx, and completion of R ALND 09/11/2019 - keep NPO - to OR today for R axillary drain removal pending medical clearance from Hospitalist team - case discussed with Dr Iglesias from [place] - greatly appreciate help of medical team with this patient's care Plan / VTE VTE Prophylaxis Ordered?: Yes BENSON LUJAN DO Oct 06, 2019 09:59
[2019-10-06] MEDS ORDERED: ceFAZolin 2 GM/D5W 50 ML IV BAG (J0690 PER 500MG) As Ordered ONE (10:59)
[2019-10-06] MEDS ORDERED: MIDAZOLAM INJ 2MG/2ML VIAL (J2250 PER 1MG) As Ordered ONE (11:26)
[2019-10-06] MEDS ORDERED: ONDANSETRON 4MG/2ML VIAL IV PRN (12:30)
[2019-10-06] MEDS ORDERED: fentaNYL 100 MCG/2 ML INJECTION (J3010) IV PRN (12:30)
[2019-10-06] MEDS ORDERED: LR 1,000 ML IV SCH (12:30)
[2019-10-06] MEDS ORDERED: PHENYLephrine HCL 500 MCG/5 ML (100MCG/ML) SYRINGE (J2370) As Ordered ONE (13:00)
[2019-10-06] MEDS ORDERED: ePHEDrine SULFATE 25 MG/5 ML(5MG/ML) SYRINGE As Ordered ONE (13:00)
[2019-10-06] MEDS: TORSEMIDE 10 MG TABLET PO SCH (13:01)
[2019-10-06] MEDS: ACETAMINOPHEN TAB 650MG DOSE (2X325MG) PO SCH ×2 (13:01→17:35)
[2019-10-06] MEDS: oxyCODONE 5MG TAB PO PRN ×2 (15:43→20:01)
[2019-10-06] MEDS: ceFAZolin SOD 2 GM in IV 1 EA IV SCH (18:38)
[2019-10-06] MEDS: PRAVASTATIN 20 MG TAB PO SCH (19:59)
[2019-10-06] MEDS: LOSARTAN 50MG TABLET PO SCH (19:59)
[2019-10-06] MEDS: ALPRAZolam 0.5 MG TAB PO PRN (21:02)
[2019-10-06] MEDS: traZODone 100 MG TAB PO SCH (21:02)
[2019-10-07] VITALS: BP 102/65
[2019-10-07] MEDS: oxyCODONE 5MG TAB PO PRN (01:48)
[2019-10-07] MEDS: ceFAZolin SOD 2 GM in IV 1 EA IV SCH ×2 (02:11→10:29)
[2019-10-07 04:00] VITALS: BP 109/67
[2019-10-07] MEDS: LEVOTHYROXINE 75MCG TABLET (0.075MG) PO SCH (05:43)
[2019-10-07] MEDS: ACETAMINOPHEN TAB 650MG DOSE (2X325MG) PO SCH ×2 (05:44)
[2019-10-07] MEDS: SYMBICORT 160/4.5MCG INHALER 6GM INH SCH (07:16)
[2019-10-07 07:59] VITALS: BP 119/62
[2019-10-07] MEDS: PANTOPRAZOLE 40MG TAB (PROTONIX) PO SCH (08:18)
[2019-10-07] MEDS: MULTIVITAMINS/MINERALS THERAP 1 TAB PO SCH (08:19)
[2019-10-07] MEDS: CYANOCOBALAMIN 500 MCG TAB PO SCH (08:19)
[2019-10-07] MEDS: MAGNESIUM OXIDE 400 MG TAB (MAG-OX) PO SCH (08:19)
[2019-10-07 08:20] VITALS: BP 119/62
[2019-10-07] MEDS: VENLAFAXINE **XR** 75MG CAPSULE PO SCH (08:20)
[2019-10-07] MEDS: amLODIPine 10 MG TAB PO SCH (08:20)
[2019-10-07] MEDS: TORSEMIDE 10 MG TABLET PO SCH (08:20)
[2019-10-07] MEDS: TACROLIMUS 1 MG CAP (J7507) PO SCH (08:21)
[2019-10-07] MEDS: MYCOPHENOLATE MOFETIL 250 MG CAP (J7517) PO SCH (08:21)
--- NOTE | 2019-10-07 08:34 | IPNPDOC ---
Subjective General Date Seen: Oct 07, 2019 Subject Chief Complaint/History The patient is a 54-year-old female admitted with a reason for visit of Chest Pain after outpatient procedure. Cardiac workup is negative. She underwent removal of R axillary drain in OR. Doing well. No acute issues over night. Still has some pain Current Medications Current Medications Current Medications Medications (Trade) Dose Ordered Sig/Tawny Route PRN Reason Start Time Stop Time Status Last Admin Dose Admin Acetaminophen (Tylenol Tab) 650 mg Q6H PO 10/06/19 12:00 10/07/19 05:44 Acetaminophen (Tylenol Tab) 650 mg Q6HP PRN PO PAIN / FEVER 10/05/19 18:30 10/06/19 12:26 DC 10/06/19 05:46 Albuterol/ Ipratropium (Duoneb (Ipr 0.5mg/Alb 2.5mg)) 3 ml Q6HP PRN NEB SHORTNESS OF BREATH 10/05/19 18:45 Alprazolam (Xanax) 0.5 mg BIDP PRN PO ANXIETY 10/05/19 18:45 10/06/19 21:02 Amlodipine Besylate (Norvasc) 10 mg DAILY PO 10/06/19 09:00 10/07/19 08:20 Budesonide/ Formoterol Fumarate (Symbicort 160/ 4.5mcg) 2 puff RBID INH 10/05/19 20:00 10/07/19 07:16 Cefazolin Sodium/ Dextrose 2 gm/IV Miscellaneous Supplies 50 ml @ 75 mls/hr Q8H IV 10/06/19 19:00 10/07/19 11:39 10/07/19 02:11 Cyanocobalamin (Vitamin B12) 1,000 mcg DAILY PO 10/06/19 09:00 10/07/19 08:19 Fentanyl Citrate (Sublimaze) 25 mcg Q5MP PRN IV PAIN LEVEL 5-10 10/06/19 12:30 10/06/19 13:30 DC Home Med (Med Rec Complete!) ASDIRECTED XX 10/05/19 18:45 10/05/19 18:34 DC Lactated Ringer's 1,000 ml @ 50 mls/hr Q20H IV 10/06/19 12:30 10/06/19 13:30 DC Levothyroxine Sodium (Synthroid) 75 mcg DAILY@0600 PO 10/06/19 06:00 10/07/19 05:43 Losartan Potassium (Cozaar) 50 mg QHS PO 10/05/19 21:00 10/06/19 19:59 Magnesium Oxide (Mag-Ox) 400 mg BID PO 10/05/19 21:00 10/07/19 08:19 Multivitamins (Theragram-M) 1 tab DAILY PO 10/06/19 09:00 10/07/19 08:19 Mycophenolate Mofetil (Cellcept) 250 mg BID PO 10/05/19 21:00 10/07/19 08:21 Ondansetron HCl (ZOFRAN INJection) 4 mg Q8HP PRN IV NAUSEA OR VOMITING 10/06/19 12:30 Oxycodone HCl (Roxicodone, Oxyir) 5 mg Q4HP PRN PO PAIN 10/06/19 12:30 10/07/19 01:48 Pantoprazole Sodium (Protonix) 40 mg DAILY PO 10/06/19 09:00 10/07/19 08:18 Pravastatin Sodium (Pravachol) 40 mg QHS PO 10/05/19 21:00 10/06/19 19:59 Tacrolimus (Prograf) 2 mg BID PO 10/05/19 21:00 10/07/19 08:21 Torsemide (Demadex) 10 mg DAILY PO 10/06/19 09:00 10/07/19 08:20 Trazodone HCl (Desyrel) 200 mg QHS PO 10/05/19 21:00 10/06/19 21:02 Venlafaxine HCl (Effexor Xr) 75 mg DAILY PO 10/06/19 09:00 10/07/19 08:20 Allergies Coded Allergies: Sulfa (Sulfonamide Antibiotics) (Verified Allergy, Intermediate, RASH AND HIVES, 06/30/19) vancomycin (Verified Adverse Reaction, Intermediate, rash on chest, head felt hot, 07/01/19) morphine (Verified Adverse Reaction, Mild, lethargy, 06/30/19) pseudoephedrine (Unverified Adverse Reaction, Unknown, CONTRAINDICATION, 10/05/19) CONTRAINDICATION Objective Physical Examination Examination GENERAL APPEARANCE:Patient seen, laying in bed, awake, alert, and oriented. Comfortable, in no acute distress BREAST: Right breast mastectomy scar well approximated. Right lateral incision without drainage. Closed with the surgical glue. There is no palpable hematoma. No drainage from previous drain site. Some pain in the area. HEENT: Normocephalic. NECK: Supple LUNGS: Not in respiratory distress HEART: Mild tachycardia, chronic ABDOMEN: Abdomen is soft EXTREMITIES: No edema identified Vital Signs Vital Signs Date Time Temp Pulse Resp B/P (MAP) Pulse Ox O2 Delivery O2 Flow Rate FiO2 10/07/19 08:20 120 119/62 10/07/19 07:59 98.1 18 97 Room Air 10/06/19 13:00 0.0 I&Os I&O- Last 24 Hours up to 6 AM 10/07/19 05:59 Intake Total 1535 ml Output Total 305 ml Balance 1230 ml Laboratory Data Labs 24H Laboratory Tests 2 10/06/19 08:52: Coronavirus (COVID-19)(PCR) NEGATIVE, Methicillin-Resist S.aureus DNA PCR NOT DETECTED Impression 54-year-old woman with previous past medical history of cardiac transplant, on aspirin, was admitted to hospital for chest pain after outpatient procedure. Cardiac evaluation was normal. She underwent Intra-Op removal of right axillary drain yesterday. Doing well since the surgery. Stable for discharge from breast surgery point of view Please sent home with some pain medications. Patient prefers Percocet I informed the patient that I want her to keep Mike wrap till Saturday10/10/2019. Afterwards she can remove the Mike wrap and shower. Her postoperative appointment is scheduled for 10 13 at 4 PM Plan / VTE VTE Prophylaxis Ordered?: Yes BENSON LUJAN DO Oct 07, 2019 08:34
[2019-10-07] MEDS ORDERED: OXYC1TAB23 PO (09:25)
--- NOTE | 2019-10-07 10:39 | DS.PDOC ---
Discharge Summary General Date of Admission Oct 05, 2019 at 19:01 Date of Discharge 10/07/2019 Discharge Summary PROCEDURES PERFORMED DURING STAY: R axillary drain removal ADMITTING DIAGNOSES: 1. chest pain DISCHARGE DIAGNOSES: Atypical non cardiac chest wall pain likely musculoskeletal from attempted drain removal procedure Nonischemic Cardiomyopathy s/p heart transplant in 2019 Breast Cancer s/p right mastectomy Hypertension GERD Asthma Anxiety COMPLICATIONS/CHIEF COMPLAINT: Chest Pain. HISTORY OF PRESENT ILLNESS: 54-year-old W with a history of nonischemic cardiomyopathy status post transplant in 2019 and recently diagnosed breast cancer who presented to the [facility] emergency department with a complaint of chest pain that started in breast clinic while Dr. Cool was removing her R breast axillary drain that was in place s/p mastectomy. She had developed a seroma and subsequently had drains placed on her right. One of the drains was successfully removed previously. On the day of admission, patient was having her second drain removed and during the removal of the second drain the patient had noted pain on the right side of her chest. She developed a "gripping feeling" as well as shortness of breath and was subsequently sent to the ER for further evaluation. In the ER the patient was vitally stable. Given her cardiac history and past medical the patient was admitted to hospitalist service for further evaluation and management. HOSPITAL COURSE: In the ED, her workup was grossly negative for ACS with a negative troponin, EKG in NSR without ischemic changes, CXR wnl, normal proBNP, euvolemic physical examination and resolution of pain with adequate pain control. She was otherwise clinically stable and cleared for her low risk surgery of her drain removal with breast surgeon that went well without any complications. She was observed overnight after her drain removal and is doing very well and will now be discharged home to follow up with her breast surgeon as well as PCP in the outpatient setting. For now, she was advised to keep the chandler wrapping placed by her breast surgeon in place until Saturday after which, she may shower and follow up in clinic. DISCHARGE MEDICATIONS: Please see below. ALLERGIES: Please see below. PHYSICAL EXAMINATION ON DISCHARGE: VITAL SIGNS: Please see below. GENERAL APPEARANCE: Awake, alert, and oriented. NAD BREAST: Right breast mastectomy scar is noted. The Right lateral incision site has no noted drainage, surrounding erythema and has mild TTP. HEENT: NCAT, PERRLA, EOMI, MMM NECK: Supple LUNGS: CTAB HEART: RRR, no murmurs ABDOMEN: Normoactive sounds, soft, NTND EXTREMITIES: No edema, WWP LABORATORY DATA: Please see below. IMAGING: CXR: no acute cardiopulmonary pathology identified PROGNOSIS: Good ACTIVITY: As tolerated DIET: regular DISCHARGE PLAN: Home with breast surgery follow up with pain medication PRN for 7d. DISPOSITION: Home DISCHARGE INSTRUCTIONS: 1. To keep chandler wrapping in place until Saturday per breast surgery's instruction after which she may shower. ITEMS TO FOLLOWUP ON ON OUTPATIENT: 1. Breast CA DISCHARGE CONDITION: Stable TIME SPENT ON DISCHARGE: 43 minutes. Vital Signs/I&Os Vital Signs Date Time Temp Pulse Resp B/P (MAP) Pulse Ox O2 Delivery O2 Flow Rate FiO2 10/07/19 08:20 120 119/62 10/07/19 07:59 98.1 18 97 Room Air 10/06/19 13:00 0.0 I&O- Last 24 Hours up to 6 AM 10/07/19 06:00 Intake Total 1535 ml Output Total 655 ml Balance 880 ml Discharge Medications Scheduled Amlodipine Besylate (Norvasc) 10 Mg Tab, 10 MG PO DAILY, (Reported) Aspirin (Aspir 81) 81 Mg Tab, 81 MG PO DAILY, (Reported) Budesonide/Formoterol (Symbicort 160-4.5 Mcg Inhaler) 60 Puff/Inhaler Aers, 2 PUFF INH BID, (Reported) Calcium Carbonate/Vitamin D3 (Calcium 1,000 + D3 Caplet) 1 Each Tablet, 1 TAB PO BID, (Reported) Cyanocobalamin (Vitamin B-12) (Vitamin B-12) 1,000 Mcg Tablet, 1,000 MCG PO DAILY, (Reported) L.acidoph/L.bulg/B.bif/S.therm (Annie-Bid Caplet) 1 Each Tablet, 2 TAB PO WM, (Reported) Levothyroxine Sodium (Levothyroxine Sodium) 75 Mcg Tablet, 75 MCG PO DAILY, (Reported) Losartan Potassium (Losartan Potassium) 50 Mg Tablet, 50 MG PO QHS, (Reported) Magnesium Oxide (Magnesium Oxide) 400 Mg Tablet, 400 MG PO BID, (Reported) Multivitamins (Thera M Plus Tablet) 1 Each Tablet, 1 TAB PO DAILY, (Reported) Mycophenolate Mofetil (Mycophenolate Mofetil) 250 Mg Capsule, 250 MG PO BID, (Reported) Pantoprazole Sodium (Pantoprazole Sodium) 40 Mg Tablet.dr, 40 MG PO DAILY, (Reported) Potassium Chloride (Klor-Con M20) 20 Meq Tab.er.prt, 20 MEQ PO BID, (Reported) TAKES AT NOON/1800 Pravastatin Sodium (Pravastatin Sodium) 40 Mg Tab, 40 MG PO QHS, (Reported) Tacrolimus (Tacrolimus) 1 Mg Capsule, 2 MG PO BID, (Reported) Torsemide (Torsemide) 20 Mg Tablet, 10 MG PO DAILY, (Reported) Trazodone HCl (Trazodone HCl) 100 Mg Tablet, 200 MG PO QHS, (Reported) Venlafaxine HCl (Venlafaxine HCl ER) 75 Mg Cap.er.24h, 75 MG PO DAILY, (Reported) Scheduled PRN Acetaminophen (Acetaminophen) 325 Mg Tablet, 650 MG PO Q6HP PRN for PAIN / FEVER Alprazolam (Alprazolam) 0.5 Mg Tablet, 0.5 MG PO BIDP PRN for ANXIETY, (R eported) Ipratropium/Albuterol Sulfate (Iprat-Albut 0.5-3(2.5) mg/3 ml) 3 Ml Ampul.neb, 3 ML NEB Q6HP PRN for SHORTNESS OF BREATH, (Reported) Oxycodone HCl/Acetaminophen (Oxycodone-Acetaminophen 5-325) 1 Each Tablet, 1 TAB PO QIDP PRN for pain Allergies Coded Allergies: Sulfa (Sulfonamide Antibiotics) (Verified Allergy, Intermediate, RASH AND HIVES, 06/30/19) vancomycin (Verified Adverse Reaction, Intermediate, rash on chest, head felt hot, 07/01/19) morphine (Verified Adverse Reaction, Mild, lethargy, 06/30/19) pseudoephedrine (Unverified Adverse Reaction, Unknown, CONTRAINDICATION, 10/05/19) CONTRAINDICATION ELMO MONTOYA MD Oct 07, 2019 09:23
--- NOTE | 2019-10-07 19:32 | ROOPDOC ---
[facility] Report Of Operation Report of Operation DATE OF PROCEDURE: 10/06/19 PREPROCEDURE DIAGNOSES: right breast cancer and malfunction of the postmastectomy drain POSTPROCEDURE DIAGNOSES: same PROCEDURE: removal of right mastectomty site drain and exploration of previous mastectomy cavity SURGEON: Benson Lujan MEDICAL TECHNOLOGIST HEMATOLOGY: ANESTHESIA: moderate sedation ESTIMATED BLOOD LOSS: Approximately 5 mL. COMPLICATIONS: none REMARKS: drain removed , appears whole without signs of tear DESCRIPTION OF PROCEDURE: INDICATIONS: Ms. Hagan is 65 year-old woman with PMHx of cardiac transplant and recent diagnosis of Right breast cancer. She underwent right simple mastectomy , right SLNBx and right ALND in [place] on 09/11/[address] Iglesias. Patient followed up with me, local office, for drain removal. The lateral drain was removed without issue a week prior. The medial drain was attempted to be removed in the office however due to severe pain procedure was aborted and removal of the drain in the operating room was offered. decision to operate on ASA was made due to cardiac issues. Risks and possible complications of surgical procedure including bleeding, infection and injury to surrounding structures were explained to the patient and she wished to proceed. Consent was signed. My initials were placed on the operative site. Subcutaneous injection of 5000 units of heparin was done in Preop. DETAILS: Patient was taken to the operating room and placed on the operating room table. A sign in was called stating patients name, date of and the procedure to be done. Preoperative antibiotics were infused. Moderate sedation was started. Patients hands were extended on arm rests. Care was taken not to over extend the arms. Next, patients right chest wall was prepped and draped in the usual fashion. Drain was clamped and prepped. The distal part of drain with the bulb was cut off. Appropriate time out was done prior second part of the procedure. Patients name, date of , and the procedure to be done were confirmed. Next, local anesthetic using 1% lidocaine and 0.25 % Marcaine 50/50 mix was injected at the site of planned lateral mastectomy site incision. The lateral edges of the previous scar were excised and sent to pathology for evaluation. Previous mastectomy cavity was entered and the drain track was followed upward. Blunt dissection along the drain was done minimizing trauma to distal tissue. Area of extensive scarring was noted at the medial aspect of axillary dimple. This is the place where train was appeared to be stuck. Blunt dissection of this area was carried which allowed mobilization of the drain and removal. The drain was examined and appeared whole without signs of tear. Drain was sent to p athology for gross evaluation. Next, the wound was irrigated thoroughly and adequate hemostasis was assured. Additional local anesthetic was injected into surrounding tissues. space was approximated with 3-0 Vicryl. The dermis was closed with 3-0 Monocryl and skin was closed with 4-0 Monocryl. Surgical glue was placed over the incision. Patient emerged from the anesthesia without any problems. Fluffs were placed over the operative site and patients chest was wrapped snuggly in the ALVAREZ wrap. Sponge and instrument counts were done and were correct. Patient tolerated procedure well and was taken to recovery unit in stable condition. BENSON LUJAN DO Oct 06, 2019 21:50
== END 2019-10-07 11:23 | disposition home or self-care (01) | DRG 600 ==
LOC: EDBD 16:39 → M ED 16:39 → M ED INP 19:01 → ENRESERV 19:25 → M PCU 21:23
PROVIDERS: ADMIT Internal Medicine; ATTEND Internal Medicine
PROC: 0HP Skin and Breast, Removal (ICD-10-PCS; 2019-10-06)
PROC: 0WB80ZX Excision of Chest Wall, Open Approach, Diagnostic (ICD-10-PCS; principal; 2019-10-06 09:30)
DX: N64.4 Mastodynia (principal); N99.842 Postprocedural seroma of a genitourinary system organ or structure following a genitourinary system procedure; Z94.1 Heart transplant status; Z90.11 Acquired absence of right breast and nipple; C50.911 Malignant neoplasm of unspecified site of right female breast; R07.89 Other chest pain; I10 Essential (primary) hypertension; K21.9 Gastro-esophageal reflux disease without esophagitis; J45.909 Unspecified asthma, uncomplicated; F41.9 Anxiety disorder, unspecified; Z98.84 Bariatric surgery status; Z90.49 Acquired absence of other specified parts of digestive tract; Z87.891 Personal history of nicotine dependence; Z79.82 Long term (current) use of aspirin; Z79.899 Other long term (current) drug therapy; Z88.1 Allergy status to other antibiotic agents; Z88.2 Allergy status to sulfonamides; Z88.5 Allergy status to narcotic agent; Z88.8 Allergy status to other drugs, medicaments and biological substances; Z11.59 Encounter for screening for other viral diseases

== ENCOUNTER → 2019-10-13 | Outpatient (CLI) | payer MEDICARE ==
[~2019-10-13] MED LIST changes: +OXYC1TAB23 PO
[2019-10-13 08:52] LABS: BASO % 0.4 % (0.0-1.0); EOS # 0.1 10^3/uL (0.0-0.5); EOS % 1.8 % (0.0-3.0); HEMATOCRIT 37.8 % (36.0-47.0); HEMOGLOBIN 12.6 g/dl (12.0-15.5); LYMPH # 0.8 10^3/uL (1.5-5.0); LYMPH % 15.6 % (24.0-44.0); MEAN CORPUSCULAR HEMOGLOBIN 33.6 pg (27.0-33.0); MEAN CORPUSCULAR HGB CONC 33.3 g/dl (32.0-36.5); MEAN CORPUSCULAR VOLUME 100.8 fl (80.0-96.0); MONO # 0.6 10^3/uL (0.0-0.8); MONO % 11.9 % (0.0-5.0); NEUTROPHILS # 3.4 10^3/uL (1.5-8.5); NEUTROPHILS % 69.7 % (36.0-66.0); PLATELET COUNT, AUTOMATED 270 10^3/uL (150-450); RED BLOOD COUNT 3.75 10^6/uL (4.00-5.40); WHITE BLOOD COUNT 4.9 10^3/uL (4.0-10.0)
[2019-10-13 09:21] LABS: ALBUMIN 3.1 GM/DL (3.2-5.2); ALT/SGPT 19 U/L (12-78); BILIRUBIN,TOTAL 0.5 MG/DL (0.2-1.0); BLOOD UREA NITROGEN 16 MG/DL (7-18); CALCIUM LEVEL 8.3 MG/DL (8.5-10.1); CARBON DIOXIDE LEVEL 33 MEQ/L (21-32); CHLORIDE LEVEL 103 MEQ/L (98-107); CREATININE FOR GFR 0.77 MG/DL (0.55-1.30); GLOMERULAR FILTRATION RATE > 60.0 (>51); GLUCOSE, FASTING 84 MG/DL (70-100); MAGNESIUM LEVEL 1.6 MG/DL (1.8-2.4); POTASSIUM SERUM 3.6 MEQ/L (3.5-5.1); SODIUM LEVEL 139 MEQ/L (136-145); TOTAL PROTEIN 6.6 GM/DL (6.4-8.2); TRIGLYCERIDES LEVEL 89 MG/DL (<150)
== END ==
LOC: M LAB 08:16
PROVIDERS: ATTEND Nurse Practitioner Acute Care
DX: R79.0 Abnormal level of blood mineral (principal); D89.9 Disorder involving the immune mechanism, unspecified; Z79.899 Other long term (current) drug therapy

== ENCOUNTER → 2019-10-15 | Outpatient (CLI) | payer MEDICARE ==
[~2019-10-15] MED LIST changes: +ALBU1.25 NEB; -ASPI81TA85 PO; +ASPI81TA86 PO; +CIPR7.5D5 AU; -CIPRODEX AU; +DOXY-350 PO; +GABA-282 PO; -GABA-843 PO; +GASTROGRAFIN SOLUTION 30ML (Q9963) As Ordered ONE; +ISOVUE-370 76% 100ML VIAL As Ordered ONE; +LISI10TA22; +LISI10TA22 PO; -LISI10TA4; -LISI10TA4 PO; +OXYC-1 PO; +PANT40TA29 PO; -PANT40TA3 PO; +PRED10TA2 PO; +PROA1AER2 INH
--- NOTE | 2019-10-15 10:34 | REP ---
CT CHEST WITH IV CONTRAST: HISTORY: Staging breast cancer. Comparison chest CT study June 30, 2019. The patient is status post cardiac transplant. CT CONTRAST DOSE: 100 mL of intravenous Isovue 370. FINDINGS: The patient is status post right mastectomy in the interval since the prior exam. There are multiple surgical clips in the right axilla. No chest wall mass lesion is seen. Median sternotomy wires are noted. There is no evidence of supraclavicular or axillary lymphadenopathy. No hilar or mediastinal mass is seen. There are scattered normal-sized mediastinal lymph nodes unchanged from the comparison study. A pretracheal lymph node is again seen measuring 8 mm in greatest diameter. Previously 11 mm. The patient is status post gastric sleeve resection. There are two small accessory splenules noted. Normal adrenal glands are seen. No pleural or pericardial effusion is seen. The lung durand show minimal linear fibrosis and/or plate-like atelectasis in the left base. No pulmonary mass or significant pulmonary nodule is appreciated. No bony destructive lesion is seen. IMPRESSION: No evidence of mass or adenopathy. Status post right mastectomy changes. Prior median sternotomy. Electronically Signed by González Lafleur MD 10/15/2019 01:34 P
--- NOTE | 2019-10-15 10:35 | REP ---
CT ABDOMEN AND PELVIS WITH IV AND ORAL CONTRAST: HISTORY: Breast carcinoma staging. Status post cardiac transplant. Comparison CT abdomen pelvis January 29, 2017. CT contrast dose: 100 mL of intravenous Isovue 370. CT FINDINGS: There are multiple accessory splenules. No splenic mass lesion is seen. No focal liver lesion is observed. Adrenal glands are unremarkable. No abnormality is noted in the pancreas. The gallbladder is surgically absent. Kidneys enhance symmetrically and are morphologically intact. There is a 2 mm calculus in the lower pole collecting system of the right kidney. No hydronephrosis is seen. There is a 3 mm calculus in the lower pole collecting system of the left kidney. There are scattered normal-sized periaortic lymph nodes again noted unchanged from the February 15, [address] study. There is no evidence of progressive enlargement or adenopathy. Normal appendix is seen in the right lower quadrant. No abdominal wall defect is seen. The patient is status post gastric sleeve resection. No small or large bowel mass lesion is observed. No pelvic adenopathy is observed. The uterus is surgically absent. The left ovary is not well seen. Right ovary is unremarkable. No lytic or sclerotic bony destructive lesion is appreciated. There are degenerative spondylosis changes in the lumbar spine. IMPRESSION: Post cholecystectomy, hysterectomy, and gastric sleeve resection. Bilateral intrarenal nephrolithiasis. No acute abdominal or pelvic abnormality. Electronically Signed by González Lafleur MD 10/15/2019 01:34 P
--- NOTE | 2019-10-15 14:42 | REP ---
WHOLE BODY RADIONUCLIDE BONE SCAN: HISTORY: Malignant neoplasm central portion left breast. ER positive. No comparison whole body bone scan. TECHNIQUE: 21.3 mCi technetium 99m MDP is injected and standard whole body bone scan imaging was acquired. SCINTIGRAPHIC FINDINGS: There is osteoarthritic uptake in the medial compartment of each knee and bilaterally in the ankles, particularly in the right ankle in the midfoot region. Comparison three-phase imaging of the feet from 2015 showed similar findings in the feet. This is consistent with arthropathy. Otherwise, there is a normal distribution of skeletal tracer with uptake in bilateral kidneys and the urinary bladder. There is a mild levoconvex curvature in the lumbar spine. Mild degenerative thoracic and lumbar spine uptake pattern is seen. IMPRESSION: Osteoarthritic and degenerative disc disease uptake pattern. No evidence to suggest skeletal metastatic disease. Electronically Signed by González Lafleur MD 10/15/2019 03:03 P
== END ==
LOC: M RAD 08:15
PROVIDERS: ATTEND Surgery Surgical Oncology
DX: C50.112 Malignant neoplasm of central portion of left female breast (principal); Z17.0 Estrogen receptor positive status [ER+]; M17.0 Bilateral primary osteoarthritis of knee; M19.071 Primary osteoarthritis, right ankle and foot; M19.072 Primary osteoarthritis, left ankle and foot; M51.34 Other intervertebral disc degeneration, thoracic region; M51.36 Other intervertebral disc degeneration, lumbar region; Z90.11 Acquired absence of right breast and nipple; Z98.84 Bariatric surgery status; Z90.49 Acquired absence of other specified parts of digestive tract; N20.0 Calculus of kidney
CPT/HCPCS: 71260; 74177; 78306; A9503; Q9963; Q9967

== ENCOUNTER 2019-10-19 08:07 | Outpatient (RCR) | payer MEDICARE ==
[~2019-10-19 08:07] MED LIST changes: -ALBU1.25 NEB; +ASPI81TA85 PO; -ASPI81TA86 PO; -CIPR7.5D5 AU; +CIPRODEX AU; -DOXY-350 PO; -GABA-282 PO; +GABA-843 PO; -GASTROGRAFIN SOLUTION 30ML (Q9963) As Ordered ONE; -ISOVUE-370 76% 100ML VIAL As Ordered ONE; -LISI10TA22; -LISI10TA22 PO; +LISI10TA4; +LISI10TA4 PO; -OXYC-1 PO; -PANT40TA29 PO; +PANT40TA3 PO; -PRED10TA2 PO; -PROA1AER2 INH
== END 2019-10-27 ==
LOC: M PT 08:07
DX: C50.112 Malignant neoplasm of central portion of left female breast (principal)

== ENCOUNTER → 2019-10-20 | Outpatient (CLI) | payer MEDICARE | LOC: EEVIPCON 09:12 → M PLALAB 09:12 | PROVIDERS: ATTEND Surgery | DX: Z15.09 Genetic susceptibility to other malignant neoplasm (principal) ==

== ENCOUNTER → 2019-11-11 | Outpatient (CLI) | payer MEDICARE ==
[~2019-11-11] MED LIST changes: -ASPI81TA85 PO; +ASPI81TA86 PO; +OXYC-1 PO; +PANT40TA29 PO; -PANT40TA3 PO; +PRED10TA2 PO
== END ==
LOC: M ONCR 12:43
PROVIDERS: ATTEND Radiology Radiation Oncology
DX: C50.111 Malignant neoplasm of central portion of right female breast (principal); Z92.3 Personal history of irradiation; Z94.1 Heart transplant status

== ENCOUNTER 2019-11-26 08:30 | Outpatient (RCR) | payer MEDICARE ==
[~2019-11-26 08:30] MED LIST changes: -OXYC-1 PO; -PRED10TA2 PO
== END 2019-11-27 ==
LOC: M PT 08:30
PROVIDERS: ATTEND Surgery Surgical Oncology
DX: Z85.3 Personal history of malignant neoplasm of breast (principal)

== ENCOUNTER → 2019-12-15 | Outpatient (CLI) | payer MEDICARE ==
[~2019-12-15] MED LIST changes: +OXYC-1 PO; +PRED10TA2 PO
[2020-02-07 07:12] LABS: C REACTIVE PROTEIN QUANTITATIV < 0.30 MG/DL (0.00-0.30); RHEUMATOID FACTOR QUANT 39.6 IU/ML (<15.0)
== END ==
LOC: M LAB 07:54
PROVIDERS: ATTEND Internal Medicine Rheumatology
DX: M06.9 Rheumatoid arthritis, unspecified (principal)

== ENCOUNTER → 2019-12-15 | Outpatient (CLI) | payer MEDICARE ==
[2020-02-01 21:57] LABS: BASO % 0.5 % (0.0-1.0); EOS % 0.3 % (0.0-3.0); HEMATOCRIT 39.3 % (36.0-47.0); LYMPH # 1.4 10^3/uL (1.5-5.0); LYMPH % 18.1 % (24.0-44.0); MEAN CORPUSCULAR HEMOGLOBIN 32.8 pg (27.0-33.0); MEAN CORPUSCULAR HGB CONC 33.1 g/dl (32.0-36.5); MEAN CORPUSCULAR VOLUME 99.2 fl (80.0-96.0); MONO # 0.7 10^3/uL (0.0-0.8); MONO % 8.2 % (0.0-5.0); NEUTROPHILS # 5.7 10^3/uL (1.5-8.5); NEUTROPHILS % 71.5 % (36.0-66.0); PLATELET COUNT, AUTOMATED 206 10^3/uL (150-450); RED BLOOD COUNT 3.96 10^6/uL (4.00-5.40)
[2020-02-01 22:16] LABS: ERYTHROCYTE SEDIMENTATION RATE 11 mm/hr (0-30)
[2020-02-08 03:47] LABS: ALBUMIN 3.4 GM/DL (3.2-5.2); ALT/SGPT 30 U/L (12-78); BILIRUBIN,TOTAL 0.3 MG/DL (0.2-1.0); BLOOD UREA NITROGEN 17 MG/DL (7-18); CALCIUM LEVEL 8.5 MG/DL (8.5-10.1); CARBON DIOXIDE LEVEL 34 MEQ/L (21-32); CHLORIDE LEVEL 103 MEQ/L (98-107); CREATININE FOR GFR 0.77 MG/DL (0.55-1.30); GLOMERULAR FILTRATION RATE > 60.0 (>51); GLUCOSE, FASTING 75 MG/DL (70-100); MAGNESIUM LEVEL 1.8 MG/DL (1.8-2.4); POTASSIUM SERUM 3.5 MEQ/L (3.5-5.1); SODIUM LEVEL 142 MEQ/L (136-145); TOTAL PROTEIN 6.5 GM/DL (6.4-8.2)
== END ==
LOC: M LAB 07:54
PROVIDERS: ATTEND Nurse Practitioner Acute Care
DX: Z51.81 Encounter for therapeutic drug level monitoring (principal); Z94.1 Heart transplant status; Z91.89 Other specified personal risk factors, not elsewhere classified; E83.42 Hypomagnesemia; D89.9 Disorder involving the immune mechanism, unspecified

== ENCOUNTER 2019-12-26 06:20 | Emergency (ER) | payer MEDICARE ==
[~2019-12-26] VITALS: Ht 170.2 cm; Wt 89.5 kg
[~2019-12-26 06:20] MED LIST changes: -OXYC-1 PO; -PRED10TA2 PO
[2019-12-26] MEDS ORDERED: OXYC-1 PO (06:49)
[2019-12-26] MEDS ORDERED: PRED10TA2 PO (06:49)
[2019-12-26 07:16] LABS: HEMATOCRIT 32.4 % (36.0-47.0); HEMOGLOBIN 10.6 g/dl (12.0-15.5); MEAN CORPUSCULAR HEMOGLOBIN 32.7 pg (27.0-33.0); MEAN CORPUSCULAR HGB CONC 32.7 g/dl (32.0-36.5); PLATELET COUNT, AUTOMATED 153 10^3/uL (150-450); RED BLOOD COUNT 3.24 10^6/uL (4.00-5.40); WHITE BLOOD COUNT 5.8 10^3/uL (4.0-10.0)
--- NOTE | 2019-12-26 07:45 | REPVR ---
PROCEDURE INFORMATION: Exam: XR Chest, 1 View Exam date and time: 12/26/2019 7:17 AM Age: 54 years old Clinical indication: Fever TECHNIQUE: Imaging protocol: XR of the chest Views: 1 view. COMPARISON: CT Chest with contrast 10/15/2019 9:47 AM FINDINGS: Lungs: There is elevation of the left hemidiaphragm with minimal basilar atelectatic changes. Grossly unchanged since CT scan of October 15, 2019. Pleural space: Unremarkable. No pleural effusion. No pneumothorax. Heart/Mediastinum: Unremarkable. No cardiomegaly. Bones/joints: The patient is status post sternotomy with grossly intact sternal wires. IMPRESSION: No focal consolidation. Electronically signed by: Get Mauro On 12/26/2019 07:45:04 AM
[2019-12-26 07:56] LABS: ANISOCYTOSIS 2+; ATYPICAL LYMPH 4 % (0-5); BASOPHILS 1 % (0-1); EOSINOPHILS 2 % (0-3); LYMPHOCYTES 6 % (16-44); MONOCYTES 1 % (0-5); NEUTROPHILS 81 % (28-66); PLATELET CLUMPS SMALL AMT; PLATELET ESTIMATE NORMAL (NORMAL)
[2019-12-26 07:57] LABS: TOXIC VACUOLATION 1+
[2019-12-26 07:59] LABS: ALBUMIN 3.1 GM/DL (3.2-5.2); ALT/SGPT 17 U/L (12-78); BILIRUBIN,DIRECT 0.2 MG/DL (0.0-0.2); BILIRUBIN,TOTAL 0.6 MG/DL (0.2-1.0); BLOOD UREA NITROGEN 9 MG/DL (7-18); CALCIUM LEVEL 8.1 MG/DL (8.5-10.1); CARBON DIOXIDE LEVEL 31 MEQ/L (21-32); CHLORIDE LEVEL 105 MEQ/L (98-107); CREATININE FOR GFR 0.68 MG/DL (0.55-1.30); GLOMERULAR FILTRATION RATE > 60.0 (>51); GLUCOSE, FASTING 88 MG/DL (70-100); POTASSIUM SERUM 3.4 MEQ/L (3.5-5.1); SODIUM LEVEL 141 MEQ/L (136-145); TOTAL PROTEIN 5.9 GM/DL (6.4-8.2)
[2019-12-26 08:23] LABS: CK-MB VALUE MASS < 1.0 NG/ML (<3.6); CPK CREATINE PHOSPHOKINASE 30 U/L (26-192); MB/CK RELATIVE INDEX 3.33 (< OR =4); TROPONIN I < 0.02 NG/ML (< 0.10)
[2019-12-26 08:26] LABS: APPEARANCE, URINE CLEAR (CLEAR); BACTERIA, URINE AUTO NEGATIVE (NEGATIVE); BILIRUBIN, URINE AUTO NEGATIVE (NEGATIVE); BLOOD, URINE BLOOD NEGATIVE (NEGATIVE); COLOR, URINE YELLOW (YELLOW); GLUCOSE, URINE (UA) AUTO NEGATIVE (NEGATIVE); KETONE, URINE AUTO NEGATIVE (NEGATIVE); LEUKOCYTE ESTERASE, URINE AUTO NEGATIVE (NEGATIVE); NITRITE, URINE AUTO NEGATIVE (NEGATIVE); PROTEIN, URINE AUTO NEGATIVE (NEGATIVE); RBC, URINE AUTO 1 /HPF (0-3); SPECIFIC GRAVITY URINE AUTO 1.014 (1.002-1.035); SQUAMOUS EPITHELIAL CELL UR AU 0 /HPF (0-6); WBC, URINE AUTO 1 /HPF (0-3)
[2019-12-26 10:06] VITALS: BP 114/60
--- NOTE | 2020-02-02 09:11 | ECGEPIP ---
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
== END 2019-12-26 10:08 | disposition home or self-care (01) ==
LOC: M ED 06:20
DX: R50.9 Fever, unspecified (principal); Z94.1 Heart transplant status; Z92.21 Personal history of antineoplastic chemotherapy; I10 Essential (primary) hypertension; J44.9 Chronic obstructive pulmonary disease, unspecified; J45.909 Unspecified asthma, uncomplicated; I42.8 Other cardiomyopathies; E03.9 Hypothyroidism, unspecified; E78.5 Hyperlipidemia, unspecified; K21.9 Gastro-esophageal reflux disease without esophagitis; M06.9 Rheumatoid arthritis, unspecified; Z85.3 Personal history of malignant neoplasm of breast; Z79.899 Other long term (current) drug therapy; Z79.890 Hormone replacement therapy; Z79.82 Long term (current) use of aspirin; Z88.1 Allergy status to other antibiotic agents; Z88.2 Allergy status to sulfonamides; Z88.5 Allergy status to narcotic agent; Z87.891 Personal history of nicotine dependence

== ENCOUNTER 2020-01-19 10:19 | Outpatient (RCR) | payer MEDICARE | END 2020-01-27 | LOC: M ONCR 10:19 | PROVIDERS: ATTEND General Practice | DX: C50.111 Malignant neoplasm of central portion of right female breast (principal) ==

== ENCOUNTER → 2020-01-19 | Outpatient (CLI) | payer MEDICARE ==
[~2020-01-19] MED LIST changes: +OXYC-1 PO; +PRED10TA2 PO
--- NOTE | 2020-01-26 16:53 | REP ---
DUPLEX CAROTID SONOGRAPHY HISTORY: Left-sided neck pain. FINDINGS: Antegrade flow was observed in both vertebral arteries. RIGHT CAROTID: The right common carotid artery is unremarkable. There is mild calcific plaquing in the proximal ICA without high grade stenosis. Color flow and spectral Doppler velocities are unremarkable on the right. Velocity chart right carotid: Right CCA PSV 109 cm/s. Right ICA PSV 52, EDV 24. Right ECA PSV 82. Right ICA/CCA ratio normal 0.48. IMPRESSION: Less than 50% category narrowing in the right ICA. Minimal calcific plaquing. LEFT CAROTID: The left common carotid artery is unremarkable on two dimensional scanning. There is minimal calcific plaquing in the proximal ICA on the left. Color flow and spectral Doppler interrogation is unremarkable on the left. Velocity chart left carotid: Left CCA PSV 79 cm/s. Left ICA PSV 49, EDV 24. Left ECA PSV 81. Left ICA/CCA ratio normal 0.6. IMPRESSION: Less than 50% category narrowing in the left ICA by Doppler velocity criteria. [facility]
== END ==
LOC: M RAD 06:27
PROVIDERS: ATTEND Nurse Practitioner Acute Care
DX: M54.2 Cervicalgia (principal)

== ENCOUNTER → 2020-02-04 | Outpatient (CLI) | payer MEDICARE ==
[2020-02-04 09:11] LABS: BASO % 0.7 % (0.0-1.0); EOS % 0.5 % (0.0-3.0); HEMATOCRIT 38.7 % (36.0-47.0); HEMOGLOBIN 12.2 g/dl (12.0-15.5); LYMPH # 0.9 10^3/uL (1.5-5.0); LYMPH % 15.4 % (24.0-44.0); MEAN CORPUSCULAR HEMOGLOBIN 32.8 pg (27.0-33.0); MEAN CORPUSCULAR HGB CONC 31.5 g/dl (32.0-36.5); MONO # 0.6 10^3/uL (0.0-0.8); MONO % 10.9 % (0.0-5.0); NEUTROPHILS # 4.1 10^3/uL (1.5-8.5); NEUTROPHILS % 72.1 % (36.0-66.0); PLATELET COUNT, AUTOMATED 275 10^3/uL (150-450); RED BLOOD COUNT 3.72 10^6/uL (4.00-5.40); WHITE BLOOD COUNT 5.7 10^3/uL (4.0-10.0)
[2020-02-04 09:33] LABS: ALBUMIN 3.2 GM/DL (3.2-5.2); ALT/SGPT 18 U/L (12-78); BILIRUBIN,TOTAL 0.6 MG/DL (0.2-1.0); BLOOD UREA NITROGEN 15 MG/DL (7-18); CALCIUM LEVEL 8.4 MG/DL (8.5-10.1); CARBON DIOXIDE LEVEL 31 MEQ/L (21-32); CHLORIDE LEVEL 105 MEQ/L (98-107); CREATININE FOR GFR 0.89 MG/DL (0.55-1.30); GLOMERULAR FILTRATION RATE > 60.0 (>51); GLUCOSE, FASTING 89 MG/DL (70-100); MAGNESIUM LEVEL 1.7 MG/DL (1.8-2.4); SODIUM LEVEL 141 MEQ/L (136-145); TOTAL PROTEIN 6.2 GM/DL (6.4-8.2)
== END ==
LOC: M LAB 07:44
PROVIDERS: ATTEND Nurse Practitioner Acute Care
DX: M05.9 Rheumatoid arthritis with rheumatoid factor, unspecified (principal); D89.9 Disorder involving the immune mechanism, unspecified; E83.42 Hypomagnesemia; Z94.1 Heart transplant status; Z79.899 Other long term (current) drug therapy; Z91.89 Other specified personal risk factors, not elsewhere classified

== ENCOUNTER → 2020-02-04 | Outpatient (CLI) | payer MEDICARE ==
[2020-02-04 09:09] LABS: BASO % 0.7 % (0.0-1.0); EOS % 0.3 % (0.0-3.0); HEMATOCRIT 39.2 % (36.0-47.0); HEMOGLOBIN 12.4 g/dl (12.0-15.5); LYMPH # 0.8 10^3/uL (1.5-5.0); LYMPH % 14.4 % (24.0-44.0); MEAN CORPUSCULAR HEMOGLOBIN 32.9 pg (27.0-33.0); MEAN CORPUSCULAR HGB CONC 31.6 g/dl (32.0-36.5); MONO # 0.6 10^3/uL (0.0-0.8); MONO % 10.9 % (0.0-5.0); NEUTROPHILS # 4.2 10^3/uL (1.5-8.5); NEUTROPHILS % 73.4 % (36.0-66.0); PLATELET COUNT, AUTOMATED 279 10^3/uL (150-450); RED BLOOD COUNT 3.77 10^6/uL (4.00-5.40); WHITE BLOOD COUNT 5.8 10^3/uL (4.0-10.0)
[2020-02-04 09:28] LABS: ERYTHROCYTE SEDIMENTATION RATE 21 mm/hr (0-30)
[2020-02-04 09:31] LABS: BLOOD UREA NITROGEN 15 MG/DL (7-18); GLUCOSE, FASTING 83 MG/DL (70-100)
[2020-02-04 09:32] LABS: ALBUMIN 3.2 GM/DL (3.2-5.2); ALT/SGPT 19 U/L (12-78); BILIRUBIN,TOTAL 0.6 MG/DL (0.2-1.0); CALCIUM LEVEL 8.4 MG/DL (8.5-10.1); CARBON DIOXIDE LEVEL 31 MEQ/L (21-32); CHLORIDE LEVEL 105 MEQ/L (98-107); GLOMERULAR FILTRATION RATE > 60.0 (>51); POTASSIUM SERUM 3.9 MEQ/L (3.5-5.1); SODIUM LEVEL 142 MEQ/L (136-145); TOTAL PROTEIN 6.2 GM/DL (6.4-8.2)
== END ==
LOC: M LAB 07:51
PROVIDERS: ATTEND Internal Medicine
DX: M05.9 Rheumatoid arthritis with rheumatoid factor, unspecified (principal)

== ENCOUNTER → 2020-02-15 | Outpatient (CLI) | payer MEDICARE ==
[2020-02-15 11:31] LABS: BASO % 0.5 % (0.0-1.0); EOS # 0.1 10^3/uL (0.0-0.5); EOS % 1.2 % (0.0-3.0); HEMATOCRIT 35.7 % (36.0-47.0); HEMOGLOBIN 11.7 g/dl (12.0-15.5); LYMPH # 0.4 10^3/uL (1.5-5.0); LYMPH % 9.6 % (24.0-44.0); MEAN CORPUSCULAR HEMOGLOBIN 34.1 pg (27.0-33.0); MEAN CORPUSCULAR HGB CONC 32.8 g/dl (32.0-36.5); MEAN CORPUSCULAR VOLUME 104.1 fl (80.0-96.0); MONO # 0.5 10^3/uL (0.0-0.8); MONO % 12.9 % (0.0-5.0); NEUTROPHILS # 3.2 10^3/uL (1.5-8.5); NEUTROPHILS % 75.6 % (36.0-66.0); PLATELET COUNT, AUTOMATED 218 10^3/uL (150-450); RED BLOOD COUNT 3.43 10^6/uL (4.00-5.40); WHITE BLOOD COUNT 4.2 10^3/uL (4.0-10.0)
[2020-02-15 12:14] LABS: ALT/SGPT 12 U/L (12-78); BILIRUBIN,TOTAL 0.8 MG/DL (0.2-1.0); BLOOD UREA NITROGEN 10 MG/DL (7-18); CALCIUM LEVEL 8.1 MG/DL (8.5-10.1); CARBON DIOXIDE LEVEL 32 MEQ/L (21-32); CHLORIDE LEVEL 103 MEQ/L (98-107); CREATININE FOR GFR 0.68 MG/DL (0.55-1.30); GLOMERULAR FILTRATION RATE > 60.0 (>51); GLUCOSE, FASTING 69 MG/DL (70-100); MAGNESIUM LEVEL 1.6 MG/DL (1.8-2.4); POTASSIUM SERUM 3.5 MEQ/L (3.5-5.1); SODIUM LEVEL 138 MEQ/L (136-145); TOTAL PROTEIN 6.1 GM/DL (6.4-8.2); TRIGLYCERIDES LEVEL 83 MG/DL (<150)
== END ==
LOC: M LAB 09:10
PROVIDERS: ATTEND Nurse Practitioner Acute Care
DX: D84.9 Immunodeficiency, unspecified (principal); Z94.1 Heart transplant status; Z79.899 Other long term (current) drug therapy

== ENCOUNTER 2020-02-26 08:10 | Outpatient (RCR) | payer MEDICARE | END 2020-02-27 | LOC: M ONCR 08:10 | PROVIDERS: ATTEND General Practice | DX: C50.111 Malignant neoplasm of central portion of right female breast (principal) ==

== ENCOUNTER 2020-03-14 08:10 | Outpatient (RCR) | payer MEDICARE | END 2020-03-28 | LOC: M ONCR 08:10 | PROVIDERS: ATTEND General Practice | DX: C50.111 Malignant neoplasm of central portion of right female breast (principal) ==

== ENCOUNTER → 2020-03-14 | Outpatient (CLI) | payer MEDICARE ==
--- NOTE | 2020-03-14 14:38 | DEXA ---
INDICATION: POSTMENOPAUSAL STATUS,HX BREAST CA,ON AI. COMPARISON: None. TECHNIQUE: Bone density was measured using dual-energy x-ray absorptiometry (DEXA). FINDINGS: AP SPINE L1-L4 BMD 1.445 g/cm2 Young Adult T-Score 2.0 Age Matched Z-Score 2.8. LT FEMUR, TOTAL BMD 1.094 g/cm2 Young Adult T-Score 0.7 Age Matched Z-Score 1.3. LT NECK BMD 0.959 g/cm2 Young Adult T-Score -0.6 Age Matched Z-Score 0.4. RT FEMUR, TOTAL BMD 1.153 g/cm2 Young Adult T-Score 1.2 Age Matched Z-Score 1.8. RT NECK BMD 1.044 g/cm2 Young Adult T-Score 0.0 Age Matched Z-Score 1.0. IMPRESSION: There is normal bone density of the spine. There is normal bone density of the left hip. There is normal bone density of the right hip. FOLLOW-UP: Recommendation for the next bone density exam: 2 years. <Electronically signed by Brody Carrillo > 03/14/20 [id number]
== END ==
LOC: M WHC 13:48
PROVIDERS: ATTEND Nurse Practitioner Family
DX: C50.111 Malignant neoplasm of central portion of right female breast (principal); Z78.0 Asymptomatic menopausal state; Z17.0 Estrogen receptor positive status [ER+]; Z13.820 Encounter for screening for osteoporosis

== ENCOUNTER → 2020-03-29 | Outpatient (CLI) | payer MEDICARE ==
[2020-03-29 09:27] LABS: BASO % 0.5 % (0.0-1.0); EOS # 0.1 10^3/uL (0.0-0.5); EOS % 2.4 % (0.0-3.0); HEMATOCRIT 39.6 % (36.0-47.0); LYMPH # 0.3 10^3/uL (1.5-5.0); LYMPH % 13.3 % (24.0-44.0); MEAN CORPUSCULAR HEMOGLOBIN 32.1 pg (27.0-33.0); MEAN CORPUSCULAR HGB CONC 32.8 g/dl (32.0-36.5); MEAN CORPUSCULAR VOLUME 97.8 fl (80.0-96.0); MONO # 0.3 10^3/uL (0.0-0.8); MONO % 13.3 % (0.0-5.0); NEUTROPHILS # 1.5 10^3/uL (1.5-8.5); PLATELET COUNT, AUTOMATED 158 10^3/uL (150-450); RED BLOOD COUNT 4.05 10^6/uL (4.00-5.40); WHITE BLOOD COUNT 2.1 10^3/uL (4.0-10.0)
[2020-03-29 10:03] LABS: ALBUMIN 2.9 GM/DL (3.2-5.2); ALT/SGPT 22 U/L (12-78); BILIRUBIN,TOTAL 0.3 MG/DL (0.2-1.0); BLOOD UREA NITROGEN 9 MG/DL (7-18); CARBON DIOXIDE LEVEL 31 MEQ/L (21-32); CHLORIDE LEVEL 108 MEQ/L (98-107); CREATININE FOR GFR 0.86 MG/DL (0.55-1.30); GLOMERULAR FILTRATION RATE > 60.0 (>51); GLUCOSE, FASTING 94 MG/DL (70-100); MAGNESIUM LEVEL 1.2 MG/DL (1.8-2.4); POTASSIUM SERUM 3.1 MEQ/L (3.5-5.1); SODIUM LEVEL 143 MEQ/L (136-145); TOTAL PROTEIN 6.1 GM/DL (6.4-8.2); TRIGLYCERIDES LEVEL 110 MG/DL (<150)
== END ==
LOC: M LAB 08:40
PROVIDERS: ATTEND Internal Medicine Advanced Heart Failure and Transplant Cardiology
DX: Z94.1 Heart transplant status (principal); D84.9 Immunodeficiency, unspecified; Z79.899 Other long term (current) drug therapy

== ENCOUNTER → 2020-04-25 | Outpatient (CLI) | payer MEDICARE ==
--- NOTE | 2020-04-25 11:21 | REPPI ---
INDICATION: PAIN BILATERAL KNEE COMPARISON: Right knee dated 04/28/2016 TECHNIQUE: AP, lateral, bilateral oblique and sunrise views. FINDINGS: Early advanced tricompartmental osteoarthritic degenerative changes are appreciated bilaterally. No acute fracture or dislocation. No effusion. IMPRESSION: Bilateral early advanced tricompartmental osteoarthritic degenerative changes. <Electronically signed by Chris Senior > 04/25/20 111
== END ==
LOC: M PLAIMG 10:46
PROVIDERS: ATTEND Internal Medicine
DX: M17.0 Bilateral primary osteoarthritis of knee (principal); M25.561 Pain in right knee; M25.562 Pain in left knee

== ENCOUNTER → 2020-04-25 | Outpatient (CLI) | payer MEDICARE ==
[2020-04-25 08:56] LABS: BASO % 0.3 % (0.0-1.0); EOS # 0.1 10^3/uL (0.0-0.5); HEMATOCRIT 39.7 % (36.0-47.0); HEMOGLOBIN 13.1 g/dl (12.0-15.5); LYMPH # 0.4 10^3/uL (1.5-5.0); LYMPH % 12.6 % (24.0-44.0); MEAN CORPUSCULAR HEMOGLOBIN 32.6 pg (27.0-33.0); MEAN CORPUSCULAR VOLUME 98.8 fl (80.0-96.0); MONO # 0.4 10^3/uL (0.0-0.8); MONO % 14.3 % (0.0-5.0); NEUTROPHILS # 2.1 10^3/uL (1.5-8.5); NEUTROPHILS % 70.1 % (36.0-66.0); PLATELET COUNT, AUTOMATED 193 10^3/uL (150-450); RED BLOOD COUNT 4.02 10^6/uL (4.00-5.40)
[2020-04-25 09:22] LABS: ALBUMIN 3.1 GM/DL (3.2-5.2); ALT/SGPT 22 U/L (12-78); BILIRUBIN,TOTAL 0.4 MG/DL (0.2-1.0); BLOOD UREA NITROGEN 17 MG/DL (7-18); CALCIUM LEVEL 8.1 MG/DL (8.5-10.1); CARBON DIOXIDE LEVEL 32 MEQ/L (21-32); CHLORIDE LEVEL 104 MEQ/L (98-107); CREATININE FOR GFR 0.93 MG/DL (0.55-1.30); GLOMERULAR FILTRATION RATE > 60.0 (>51); GLUCOSE, FASTING 85 MG/DL (70-100); MAGNESIUM LEVEL 1.8 MG/DL (1.8-2.4); POTASSIUM SERUM 3.4 MEQ/L (3.5-5.1); SODIUM LEVEL 142 MEQ/L (136-145); TOTAL PROTEIN 6.4 GM/DL (6.4-8.2); TRIGLYCERIDES LEVEL 75 MG/DL (<150)
== END ==
LOC: M LAB 08:17
PROVIDERS: ATTEND Nurse Practitioner Acute Care
DX: D84.9 Immunodeficiency, unspecified (principal); Z94.1 Heart transplant status; Z79.899 Other long term (current) drug therapy

== ENCOUNTER → 2020-04-25 | Outpatient (CLI) | payer MEDICARE ==
--- NOTE | 2020-04-25 10:40 | REPMRS ---
Patient History The patient states she had a clinical breast exam in October 2019.Patient has history of cancer in the right breast at age 53 and had first child at age 33. No known family history of cancer. Malignant US guided breast biopsy of the right breast, May 11, 2019. Benign stereotatic breast biopsy of the right breast, 2007. Took hormonal contraceptives for 8 months. Taking tamoxifen for 6 months. Taking unspecified hormones for 15 years. Diagnostic Unilateral Mammo: Left Breast - April 25, 2020 - Exam #: [id number] CC and MLO view(s) were taken of the left breast. Technologist: Janeth Montes De Oca, Technologist Prior study comparison: May 11, 2019, right breast digital mammo diagnostic unilateral, performed at [facility]. April 24, 2019, digital mammo diagnostic bilateral, performed at [facility]. September 18, 2017, bilateral digital mammo screening bilat, performed at [facility]. December 19, 2015, digital woman screen mammo performed at [facility]. FINDINGS: There are scattered fibroglandular densities. There has been no change in the appearance of the left breast parenchyma in the interval since the prior examination. No mass, architectural distortion, or microcalcific grouping has developed. No suspicious finding. The [place] breast parenchymal pattern is B. 3-D tomosynthesis shows no additional findings. Assessment: BI-RADS/ACR category 2 mammogram. Benign Findings. Recommendation Routine screening mammogram of the left breast in 1 year. This mammogram was interpreted with the aid of an FDA-approved computer-aided dectection system. Electronically Signed By: Tim Lafleur MD 04/25/20 1034
== END ==
LOC: M WHC 09:56
PROVIDERS: ATTEND Surgery
DX: C50.111 Malignant neoplasm of central portion of right female breast (principal); Z92.0 Personal history of contraception; Z92.29 Personal history of other drug therapy; Z90.11 Acquired absence of right breast and nipple; D84.9 Immunodeficiency, unspecified; Z94.1 Heart transplant status; Z79.899 Other long term (current) drug therapy; M17.0 Bilateral primary osteoarthritis of knee; M25.561 Pain in right knee; M25.562 Pain in left knee
CPT/HCPCS: 36415; 73564; 77065; 80053; 83735; 84478; 85025; G0279

== ENCOUNTER → 2020-05-10 | Outpatient (CLI) | payer MEDICARE ==
[~2020-05-10] MED LIST changes: +ALBU1.25 NEB; +DOXY-350 PO; +GABA-282 PO; -GABA-843 PO; +PROA1AER2 INH
[2020-05-10 09:53] LABS: BASO % 0.4 % (0.0-1.0); EOS % 1.2 % (0.0-3.0); HEMATOCRIT 40.9 % (36.0-47.0); LYMPH # 0.3 10^3/uL (1.5-5.0); MEAN CORPUSCULAR HEMOGLOBIN 31.6 pg (27.0-33.0); MEAN CORPUSCULAR HGB CONC 31.8 g/dl (32.0-36.5); MEAN CORPUSCULAR VOLUME 99.3 fl (80.0-96.0); MONO # 0.3 10^3/uL (0.0-0.8); MONO % 13.2 % (0.0-5.0); NEUTROPHILS # 1.9 10^3/uL (1.5-8.5); NEUTROPHILS % 72.8 % (36.0-66.0); PLATELET COUNT, AUTOMATED 196 10^3/uL (150-450); RED BLOOD COUNT 4.12 10^6/uL (4.00-5.40); WHITE BLOOD COUNT 2.6 10^3/uL (4.0-10.0)
[2020-05-10 10:19] LABS: GLUCOSE, FASTING 82 MG/DL (70-100)
[2020-05-10 10:20] LABS: ALBUMIN 3.2 GM/DL (3.2-5.2); ALT/SGPT 20 U/L (12-78); BILIRUBIN,TOTAL 0.4 MG/DL (0.2-1.0); BLOOD UREA NITROGEN 18 MG/DL (7-18); CALCIUM LEVEL 8.4 MG/DL (8.5-10.1); CARBON DIOXIDE LEVEL 31 MEQ/L (21-32); CHLORIDE LEVEL 106 MEQ/L (98-107); CREATININE FOR GFR 0.86 MG/DL (0.55-1.30); GLOMERULAR FILTRATION RATE > 60.0 (>51); MAGNESIUM LEVEL 1.8 MG/DL (1.8-2.4); POTASSIUM SERUM 3.9 MEQ/L (3.5-5.1); SODIUM LEVEL 143 MEQ/L (136-145); TOTAL PROTEIN 6.3 GM/DL (6.4-8.2); TRIGLYCERIDES LEVEL 85 MG/DL (<150)
== END ==
LOC: M LAB 08:44
PROVIDERS: ATTEND Nurse Practitioner Acute Care
DX: D84.9 Immunodeficiency, unspecified (principal); Z94.1 Heart transplant status; Z79.899 Other long term (current) drug therapy

== ENCOUNTER → 2020-05-10 | Outpatient (CLI) | payer MEDICARE ==
[2020-05-10 10:17] LABS: C REACTIVE PROTEIN QUANTITATIV < 0.30 MG/DL (0.00-0.30); RHEUMATOID FACTOR QUANT 58.3 IU/ML (<15.0)
[2020-05-12 02:07] LABS: CYCLIC CITRULLINATED PEPTIDE 7 units (0-19); SSA SJOGRENS A <0.2 AI (0.0-0.9); SSB SJOGRENS B <0.2 AI (0.0-0.9)
== END ==
LOC: M LAB 08:40
PROVIDERS: ATTEND Internal Medicine
DX: M06.9 Rheumatoid arthritis, unspecified (principal); D84.9 Immunodeficiency, unspecified; Z94.1 Heart transplant status; Z79.899 Other long term (current) drug therapy

== ENCOUNTER → 2020-05-11 | Outpatient (CLI) | payer MEDICARE ==
--- NOTE | 2020-05-11 14:36 | RADONC ---
Radiation Oncology Hx/FUP Radiation Oncology Hx/FUP Date of Service: May 11, 2020 Pt Identifier Tom Hagan is a 54 year old female with a history of orthotopic heart transplant on chronic immunosuppression with tacrolimus seen for a followup visit today at the department of radiation oncology for a history of right breast cancer [id number] ER/WA+ HER2- she completed adjuvant chemotherapy on 01/11/20 and PMRT with comprehensive RNI 50.4 Gy in 28 fractions on 03/14/20. Diagnosis/Treatment History Oncologic History OHT @ [facility] 201804/24/19 Mammogram with abnormality near right nipple which was palpable. 05/11/19 Biposy showing ILC ER/WA+ HER2- grade 1 05/27/19 MRI without adenopathy 09/11/19 Mastectomy @ [facility] Dr. Iglesias [id number] ILC 11/09 LN+ SIDNEY+ 01/11/20 completed 4 cycles of chemotherapy omitting anthracyclines @ [facility] 03/14/20 Completed PMRT 50.4 Gy in 28 fractions w/ VMAT Continues on AI Interval History Here for follow up due to recently increased SOB and NELSON with cough. No CP. Productive cough, not dry not hacking. Also feels fatigued, no subjective fevers. No recent changes in immunosuppressants continues on tacro, prednisone (5mg for RA). No N, V, some intermittent PEREA, but this is stable. No swelling in the legs or orthopnea. Current Therapy AI per Dr. Aparicio [facility] Stage Stage IB Right breast ILC [id number] ER/WA+ HER2- Grade 1 11/09 nodes positive with SIDNEY+ Social History: Former smoker 15 pack year Past drinker, not currently Allergies / Meds Allergies: Coded Allergies: Sulfa (Sulfonamide Antibiotics) (Verified Allergy, Intermediate, RASH AND HIVES, 06/30/19) vancomycin (Verified Adverse Reaction, Intermediate, rash on chest, head felt hot, 07/01/19) morphine (Verified Adverse Reaction, Mild, lethargy, 06/30/19) pseudoephedrine (Unverified Adverse Reaction, Unknown, CONTRAINDICATION, 10/05/19) CONTRAINDICATION Home Meds Active Scripts Albuterol Sulfate (Proair Respiclick) 90 Mcg Aer.pow.ba, 2 PUFF INH Q4-6HP PRN for shortness of breath, #1 INHALER 3 Refills Prov:MILTON STOLL MD 05/11/20 Albuterol Sulfate (Albuterol Sulfate) 1.25 Mg/3 Ml Vial.neb, 1 VIAL NEB Q4-6HP PRN for wheezing for 10 Days, #150 ML 3 Refills Prov:MILTON STOLL MD 05/11/20 Acetaminophen (Acetaminophen) 325 Mg Tablet, 650 MG PO Q6HP PRN for PAIN / FEVER for 30 Days, #30 TAB Prov:Josefina Lua SUGARCANE RESEARCH TECHNICIAN 07/01/19 Reported Medications Oxycodone Hcl (Oxycodone HCl) 15 Mg Tablet, 5 MG PO QIDP PRN for pain MDD 4 Tablet(s) for 30 Days, #120 TAB 12/26/19 Prednisone (Prednisone) 10 Mg Tablet, 20 MG PO DAILY for 7 Days, #7 TAB 12/26/19 Ipratropium/Albuterol Sulfate (Iprat-Albut 0.5-3(2.5) mg/3 ml) 3 Ml Ampul.neb, 3 ML NEB Q6HP PRN for SHORTNESS OF BREATH, DWAYNE 10/05/19 Calcium Carbonate/Vitamin D3 (Calcium 1,000 + D3 Caplet) 1 Each Tablet, 1 TAB PO BID, TAB 10/05/19 Pantoprazole Sodium (Pantoprazole Sodium) 40 Mg Tablet.dr, 40 MG PO DAILY, TAB 06/30/19 Tacrolimus (Tacrolimus) 1 Mg Capsule, 2 MG PO BID, CAP 06/30/19 Multivitamins (Thera M Plus Tablet) 1 Each Tablet, 1 TAB PO DAILY, TAB 06/30/19 Cyanocobalamin (Vitamin B-12) (Vitamin B-12) 1,000 Mcg Tablet, 1000 MCG PO DAILY, TAB 06/30/19 Torsemide (Torsemide) 20 Mg Tablet, 10 MG PO DAILY, TAB 06/30/19 Magnesium Oxide (Magnesium Oxide) 400 Mg Tablet, 400 MG PO BID, TAB 06/30/19 Levothyroxine Sodium (LEVOTHYROXINE SODIUM) 75 Mcg Tablet, 75 MCG PO DAILY, TAB 06/30/19 Venlafaxine HCl (Venlafaxine HCl ER) 75 Mg Cap.er.24h, 75 MG PO DAILY 06/30/19 Trazodone HCl (Trazodone HCl) 100 Mg Tablet, 200 MG PO QHS, TAB 06/30/19 Losartan Potassium (Losartan Potassium) 50 Mg Tablet, 50 MG PO QHS 06/30/19 Potassium Chloride (Klor-Con M20) 20 Meq Tab.er.prt, 20 MEQ PO BID TAKES AT NOON/1800 06/30/19 Alprazolam (Alprazolam) 0.5 Mg Tablet, 0.5 MG PO BIDP PRN for ANXIETY 04/03/19 Amlodipine Besylate (Norvasc) 10 Mg Tab, 10 MG PO DAILY 08/01/18 Pravastatin Sodium (Pravastatin Sodium) 40 Mg Tab, 40 MG PO QHS 08/01/18 Aspirin (Aspir 81) 81 Mg Tab, 81 MG PO DAILY 08/01/18 Budesonide/Formoterol (Symbicort 160-4.5 Mcg Inhaler) 60 Puff/Inhaler Aers, 2 PUFF INH BID, INHALER 07/12/17 Review of Systems Review of Systems Constitutional: Reports: Fatigue; Denies: Chills, Fever, Weight Loss Eyes: Denies: Pain HEENT: Reports: Head Aches; Denies: Sinus Congestion Skin: Denies: Rash Breast: Denies: New Breast Lumps / Masses, Nipple Retraction, Nipple Discharge, Breast Skin Changes, Breast Pain or Tenderness, Other Breast Complaints Pulmonary: Reports: Dyspnea, Cough; Denies: Pleuritic Chest Pain Cardiovascular: Denies: Chest Pain, Palpitations Gastrointestinal: Denies: Nausea, Vomiting, Abdominal Pain Hematologic: Denies: Bruising Endocrine: Denies: Polydipsia Musculoskeletal: Denies: Neck pain, Back pain Neurological: Denies: Weakness, Numbness Psych: Reports: Mood Normal Physical Examination Vital Signs O2 99% on RA BP 123/83 Wt 203 lb P 100 RR 16 Pain 0 Fatigue 2 General Exam: Positive: Alert, Cooperative; Negative: No Acute Distress Eye Exam: Positive: PERRLA, EOMI ENT EXAM: Positive: Atraumatic Neck Exam: Positive: Supple Chest Exam: Positive: Clear to auscultation, Wheezing (Right sided wheezes, none on left); Negative: Rales, Rhonchi Heart Exam: Positive: Rate Normal Abdomen Exam: Positive: Normal bowel sounds, Soft; Negative: Tenderness Extremity Exam: Negative: Edema Skin Exam: Positive: Nl turgor and temperature Neuro Exam: Positive: Normal Gait, Normal Speech, Cranial Nerves 3-12 NL Psych Exam: Positive: Mental status NL Diagnostic and Laboratory Diagnostic Review Radiologic images, relevant labs and pathology reports were personally reviewed and discussed with Ms. Hagan. Assessment and Plan Impression Assessment Ms. Hagan is a 54 year old female with a history of orthotopic heart transplant on chronic immunosuppression with tacrolimus seen for a followup visit today at the department of radiation oncology for a history of right breast cancer [id number] ER/WA+ HER2- she completed adjuvant chemotherapy on 01/11/20 and PMRT with comprehensive RNI 50.4 Gy in 28 fractions on 03/14/20. She has some pulmonary symptoms, productive cough and NELSON which are subacute in onset. She has some corresponding wheezing only on the right side of her chest on exam today. I am concerned she may have some radiation pneumonitis as she is at the usual latency for this post treatment. I reviewed her RT plan and we did meet lung V20<20% which is the established recommendation on RTOG protocols, however, her history of immunosuppression may modify this risk although there is not good data suggesting she would be at any higher risk than the general breast cancer population. I will order a CXR today to investigate. If she has unilateral findings consis tent with pneumonitis, I would reach out to her transplant team @ [facility] regarding a plan to put her on a prednisone taper 60 mg daily for 2 weeks then decrease by 20 mg per week until off. If she does not have convincing findings, I would opt for a shorter pulse of 40 mg x 5 days which should not interfere with her immunosuppression and give her antibiotics as well, as if this is a bronchitis type picture. I will also refill her albuterol nebs and inhaler, which she has taken previously with some positive effect. I have scheduled follow up with her in August 2020, this of course could be moved up if needed. Performance Status ECOG 0 Plan CXR if unilateral infiltrates then plan to discuss steroid taper with transplant team at [facility] If not then prednisone 40 mg x 5 days and doxycycline 100 mg BID for 10 days Refilled albuterol nebs and inhaler Follow up in August 2020 as previously scheduled Ms. Hagan was encouraged to call with questions or concerns in the interim david od. MILTON STOLL MD May 11, 2020 14:36
== END ==
LOC: M ONCR 11:24
PROVIDERS: ATTEND General Practice
DX: Z08 Encounter for follow-up examination after completed treatment for malignant neoplasm (principal); Z85.3 Personal history of malignant neoplasm of breast; Z92.3 Personal history of irradiation; Z92.21 Personal history of antineoplastic chemotherapy; R06.02 Shortness of breath; R06.09 Other forms of dyspnea; R05 Cough

== ENCOUNTER → 2020-05-11 | Outpatient (CLI) | payer MEDICARE ==
[~2020-05-11] MED LIST changes: +CIPR7.5D5 AU; -CIPRODEX AU; +LISI10TA22; +LISI10TA22 PO; -LISI10TA4; -LISI10TA4 PO
--- NOTE | 2020-05-11 12:45 | REP ---
INDICATION: COUGH COMPARISON: 12/26/2019 as well as other prior exams. TECHNIQUE: PA/Lateral FINDINGS: Lungs: Bibasilar fibro atelectatic change is noted without evidence of acute infiltrate. Heart: Normal in size. Mediastinum: Mediastinal silhouette unremarkable. Multiple sternal wires are present. Pleural angles: Unremarkable.. Bones and soft tissues: Unremarkable. IMPRESSION: No acute pulmonary disease. <Electronically signed by Brody Carrillo > 05/11/20 1313
== END ==
LOC: M RAD 12:17
PROVIDERS: ATTEND General Practice
DX: R05 Cough (principal)
CPT/HCPCS: 71046; G0463

== ENCOUNTER → 2020-05-19 | Outpatient (CLI) | payer MEDICARE ==
[2020-05-19 07:30] LABS: BASO % 0.3 % (0.0-1.0); EOS % 1.2 % (0.0-3.0); HEMATOCRIT 41.3 % (36.0-47.0); HEMOGLOBIN 13.4 g/dl (12.0-15.5); LYMPH # 0.5 10^3/uL (1.5-5.0); LYMPH % 14.7 % (24.0-44.0); MEAN CORPUSCULAR HEMOGLOBIN 31.8 pg (27.0-33.0); MEAN CORPUSCULAR HGB CONC 32.4 g/dl (32.0-36.5); MEAN CORPUSCULAR VOLUME 97.9 fl (80.0-96.0); MONO # 0.3 10^3/uL (0.0-0.8); MONO % 10.4 % (0.0-5.0); NEUTROPHILS # 2.4 10^3/uL (1.5-8.5); NEUTROPHILS % 72.5 % (36.0-66.0); PLATELET COUNT, AUTOMATED 216 10^3/uL (150-450); RED BLOOD COUNT 4.22 10^6/uL (4.00-5.40); WHITE BLOOD COUNT 3.3 10^3/uL (4.0-10.0)
[2020-05-19 08:00] LABS: ALBUMIN 3.1 GM/DL (3.2-5.2); ALT/SGPT 25 U/L (12-78); BILIRUBIN,TOTAL 0.4 MG/DL (0.2-1.0); BLOOD UREA NITROGEN 29 MG/DL (7-18); CALCIUM LEVEL 8.7 MG/DL (8.5-10.1); CARBON DIOXIDE LEVEL 32 MEQ/L (21-32); CHLORIDE LEVEL 105 MEQ/L (98-107); CHOLESTEROL LEVEL 165 MG/DL (<200); CHOLESTEROL RISK RATIO 1.813 (<5); CREATININE FOR GFR 0.93 MG/DL (0.55-1.30); FREE T4 1.07 NG/DL (0.76-1.46); GLOMERULAR FILTRATION RATE > 60.0 (>51); GLUCOSE, FASTING 64 MG/DL (70-100); HDL CHOLESTEROL 91 MG/DL (>40); LDL CHOLESTEROL 50 MG/DL (<100); MAGNESIUM LEVEL 1.4 MG/DL (1.8-2.4); NON-HDL-C 74 MG/DL; POTASSIUM SERUM 3.8 MEQ/L (3.5-5.1); SODIUM LEVEL 141 MEQ/L (136-145); TOTAL PROTEIN 6.2 GM/DL (6.4-8.2); TRIGLYCERIDES LEVEL 121 MG/DL (<150)
[2020-05-19 09:52] LABS: CREATININE CLEARANCE, URINE 126.3 ML/MIN (75-115); CREATININE, URINE 42.3 MG/DL
[2020-05-19 11:10] LABS: HEMOGLOBIN A1c 4.9 %
[2020-05-19 11:23] LABS: TOTAL 25(OH) VITAMIN D 56.4 NG/ML (30.0-100.0)
[2020-05-25 18:10] LABS: CMV QUANT DNA PCR (PLASMA) Negative (Negative); SIROLIMUS (RAPAMUNE) LABCORP 5.3 ng/mL (3.0-20.0)
== END ==
LOC: M LAB 06:49
PROVIDERS: ATTEND Nurse Practitioner Acute Care
DX: D84.9 Immunodeficiency, unspecified (principal); Z94.1 Heart transplant status; Z79.899 Other long term (current) drug therapy; E78.00 Pure hypercholesterolemia, unspecified

== ENCOUNTER → 2020-06-14 | Outpatient (CLI) | payer MEDICARE ==
[~2020-06-14] MED LIST changes: +EXEM25TA PO; +FOLI1TAB11 PO; +HYDR200T3 PO; +METH2.5T48 PO; +METO1TAB32 PO; +PRED5TA PO
--- NOTE | 2020-06-14 09:39 | RADENCPD ---
Date/Time of Encounter Date of Encounter: Jun 14, 2020 Time of Encounter: 09:20 Encounter Tom came in today for follow up for right breast cancer [id number] ER/ND+ HER2- s/p mastectomy and ALND, adjuvant chemotherapy and PMRT 50.4 Gy in 28 fractions completed 03/14/20. She has a chief complaint today of CTCAE grade 3 treatment refractory lymphedema in the right upper extremity and chest wall dating from the time of her initial breast cancer surgery and made worse by the addition of PMRT. She has utilized physical and occupational therapy recommended exercises and interventions with no avail. These include constant compression (sports bras, compression sleeves), elevation, daily exercise, and a basic lymphedema pump once daily for an hour from December 2019 to present. The basic pump has failed to improve the patient's RUE swelling and chest swelling and has in fact mobilized fluid from the proximal right arm into the chest causing further swelling there and discomfort. The patient eats a low sodium diet. Her pain in the chest and RUE related to lymphedema limits her ability to use the arm. Rates 3/10 constant flaring to 5-6/10 with activity. On exam today there is CTCAE grade 3 lymphedema in the RUE particularly severe about the elbow and impairing active ROM. There is also significant and tender swelling in the right lateral chest wall, axilla and anterior chest, with dependent edema noted in the area of her mastectomy scar. There are no lesions suggestive of cancer recurrence palpable in the right chest or axilla. The left breast is ptotic and has no palpable abnormalities. The left axilla has no palpable adenopathy. There is hyperpigmentation of the right chest and supraclavicular fossa consistent with prior RT. Chest measurements taken have been documented separately in nursing notes [place]. Assessment: No evidence of cancer recurrence. Treatment refractory and functionally limiting CTCAE grade 3 lymphedema. She has clearly failed conservative measures for this up to and including a standard lymphedema pump. Her current pump is mobilizing fluid to the right chest wall causing pain. She would benefit from a Tactile Flexitouch lymphedema pump, this will help mobi lize fluid from the chest wall, it is thus medically necessary. Plan: Follow up in 1 month for lymphedema symptoms. Recommend Tactile Flexitouch pump. MILTON STOLL MD Jun 14, 2020 09:39
== END ==
LOC: M ONCR 08:39
PROVIDERS: ATTEND General Practice
DX: C50.111 Malignant neoplasm of central portion of right female breast (principal)

== ENCOUNTER → 2020-07-11 | Outpatient (CLI) | payer MEDICARE ==
[~2020-07-11] MED LIST changes: -EXEM25TA PO; -FOLI1TAB11 PO; -HYDR200T3 PO; -METH2.5T48 PO; -METO1TAB32 PO; -PRED5TA PO
[2020-07-11 09:49] LABS: BASO % 0.8 % (0.0-1.0); EOS # 0.1 10^3/uL (0.0-0.5); EOS % 1.9 % (0.0-3.0); HEMATOCRIT 41.5 % (36.0-47.0); HEMOGLOBIN 13.7 g/dl (12.0-15.5); LYMPH # 0.6 10^3/uL (1.5-5.0); LYMPH % 16.7 % (24.0-44.0); MEAN CORPUSCULAR HEMOGLOBIN 33.8 pg (27.0-33.0); MEAN CORPUSCULAR VOLUME 102.5 fl (80.0-96.0); MONO # 0.4 10^3/uL (0.0-0.8); MONO % 10.8 % (2.0-8.0); NEUTROPHILS # 2.5 10^3/uL (1.5-8.5); NEUTROPHILS % 68.2 % (36.0-66.0); PLATELET COUNT, AUTOMATED 207 10^3/uL (150-450); RED BLOOD COUNT 4.05 10^6/uL (4.00-5.40); WHITE BLOOD COUNT 3.7 10^3/uL (4.0-10.0)
[2020-07-11 10:21] LABS: ALBUMIN 3.5 GM/DL (3.2-5.2); BILIRUBIN,TOTAL 0.7 MG/DL (0.2-1.0); CALCIUM LEVEL 8.7 MG/DL (8.5-10.1); CREATININE FOR GFR 1.18 MG/DL (0.55-1.30); GLOMERULAR FILTRATION RATE 50.6 (>51); MAGNESIUM LEVEL 1.7 MG/DL (1.8-2.4); POTASSIUM SERUM 3.9 MEQ/L (3.5-5.1); TOTAL PROTEIN 6.6 GM/DL (6.4-8.2)
== END ==
LOC: M LAB 08:32
PROVIDERS: ATTEND Nurse Practitioner Acute Care
DX: D84.9 Immunodeficiency, unspecified (principal); Z94.1 Heart transplant status; Z79.899 Other long term (current) drug therapy

== ENCOUNTER → 2020-07-13 | Outpatient (CLI) | payer MEDICARE ==
--- NOTE | 2020-07-13 10:55 | RADENCPD ---
Date/Time of Encounter Date of Encounter: Jul 13, 2020 Time of Encounter: 10:50 Encounter Tom came in today for follow up for right breast cancer [id number] ER/MN+ HER2- s/p mastectomy and ALND, adjuvant chemotherapy and PMRT 50.4 Gy in 28 fractions completed 03/14/20. She continues to suffer from CTCAE grade 3 treatment refractory lymphedema in the right upper extremity and chest wall dating from the time of her initial kaylie ast cancer surgery and made worse by the addition of PMRT. She recently underwent lymphoscintigraphy in [place] which showed no collateral RUE drainage through the right axilla. Severely impaired efflux. She has discussed orthotopic lymph node transfer surgery versus vascular bypass with providers in [place]. She continues to utilize physical and occupational therapy recommended exercises and interventions with no avail. These include constant compression (sports bras, compression sleeves), elevation, daily exercise, and a basic lymphedema pump once daily for an hour from December 2019 to present. The basic pump continues to fail to improve the patient's RUE swelling and chest swelling and has in fact mobilized fluid from the proximal right arm into the chest causing further swelling there and discomfort. The patient eats a low sodium diet. Her pain continues to rate 3/10 constant flaring to 5-6/10 with activity. On exam today there is CTCAE grade 3 lymphedema in the RUE. There is also significant and tender swelling in the right lateral chest wall, axilla and anterior chest, with dependent edema noted in the right anterior chest Chest measurements taken have been documented separately in nursing notes in [facility]. Weight has increased 4 lbs today Assessment: Ongoing treatment refractory and functionally limiting CTCAE grade 3 lymphedema. She has clearly failed conservative measures for this in fact she is exploring surgical options for management now, such is her disability from this lymphedema. To restate from the previous visit she would benefit from a Tactile Flexitouch lymphedema pump, this will help mobilize fluid from the chest wall, it is thus medically necessary. Plan: Recommend Tactile Flexitouch pump. Follow up as previously scheduled in August 2020 MILTON STOLL MD Jul 13, 2020 10:55
== END ==
LOC: M ONCR 09:34
PROVIDERS: ATTEND General Practice
DX: C50.111 Malignant neoplasm of central portion of right female breast (principal)

== ENCOUNTER 2020-07-23 08:49 | Emergency (ER) | payer MEDICARE ==
[~2020-07-23] VITALS: Ht 170.2 cm; Wt 98.7 kg
[2020-07-23] MEDS ORDERED: TACR1CAP3 PO (09:04)
[2020-07-23] MEDS ORDERED: PRED5TA PO (09:04)
[2020-07-23] MEDS ORDERED: HYDR200T3 PO (09:05)
[2020-07-23] MEDS ORDERED: FOLI1TAB11 (09:05)
[2020-07-23] MEDS ORDERED: METO1TAB32 (09:05)
[2020-07-23] MEDS ORDERED: METH2.5T48 (09:05)
[2020-07-23] MEDS ORDERED: EXEM25TA (09:05)
[2020-07-23 09:45] LABS: BASO % 0.5 % (0.0-1.0); EOS # 0.1 10^3/uL (0.0-0.5); EOS % 2.2 % (0.0-3.0); HEMATOCRIT 38.7 % (36.0-47.0); LYMPH # 0.4 10^3/uL (1.5-5.0); LYMPH % 11.1 % (24.0-44.0); MEAN CORPUSCULAR HEMOGLOBIN 34.8 pg (27.0-33.0); MEAN CORPUSCULAR HGB CONC 33.6 g/dl (32.0-36.5); MEAN CORPUSCULAR VOLUME 103.5 fl (80.0-96.0); MONO # 0.4 10^3/uL (0.0-0.8); MONO % 10.3 % (2.0-8.0); NEUTROPHILS # 2.7 10^3/uL (1.5-8.5); NEUTROPHILS % 74.3 % (36.0-66.0); PLATELET COUNT, AUTOMATED 169 10^3/uL (150-450); RED BLOOD COUNT 3.74 10^6/uL (4.00-5.40); WHITE BLOOD COUNT 3.7 10^3/uL (4.0-10.0)
[2020-07-23 09:54] LABS: INR 0.97; PROTHROMBIN TIME 13.1 SECONDS (12.5-14.3)
[2020-07-23 10:09] LABS: BLOOD UREA NITROGEN 15 MG/DL (7-18); CALCIUM LEVEL 8.1 MG/DL (8.5-10.1); CARBON DIOXIDE LEVEL 31 MEQ/L (21-32); CHLORIDE LEVEL 105 MEQ/L (98-107); CREATININE FOR GFR 1.08 MG/DL (0.55-1.30); GLOMERULAR FILTRATION RATE 56.1 (>51); GLUCOSE, FASTING 85 MG/DL (70-100); POTASSIUM SERUM 3.6 MEQ/L (3.5-5.1); SODIUM LEVEL 141 MEQ/L (136-145)
--- NOTE | 2020-07-23 10:34 | REP ---
INDICATION: R/o dvt RUE. COMPARISON: None. TECHNIQUE: Right upper extremity duplex venous ultrasound. FINDINGS: The internal jugular, axillary, brachial, basilic, and cephalic veins are anechoic and compressible in the right upper extremity. Color flow imaging is homogeneous. Spectral Doppler interrogation is unremarkable. There is no evidence of right upper extremity venous thrombosis. IMPRESSION: Negative right upper extremity duplex venous ultrasound. No evidence of venous thrombosis. <Electronically signed by Tim Lafleur > 07/23/20 [id number]
[2020-07-23 10:46] LABS: FERRITIN 34 NG/ML (8-252); IRON (FE) 306 UG/DL (50-170); PERCENT SATURATION 89.5 % (13.2-45.0); TOTAL IRON BINDING CAPACITY 342 UG/DL (250-450)
[2020-07-23] MEDS ORDERED: ISOVUE-370 76% 100ML VIAL As Ordered ONE (11:36)
--- NOTE | 2020-07-23 12:29 | REP ---
INDICATION: RUE edema, h/o breast ca, r/o mass/axilla mass/SVC syndrome. COMPARISON: Comparison chest CT study November 24, 2019.. TECHNIQUE: 75 mL of intravenous Isovue 370 is administered. Helical scanning is acquired 3 mm axial images re-formatted. Coronal and sagittal MPR and coronal MIP images are provided. FINDINGS: Digital preliminary viscera washer radiograph demonstrates that the patient is apparently unable to raise the right arm out of the scanned field. Median sternotomy wires are visible and multiple rounded densities overlie the chest, apparently related to an external breast prosthesis. The patient is status post right mastectomy. There is minimal subpleural fibrosis along the right anterior chest wall as before. No new infiltrate is seen. There is some linear discoid atelectasis in the left lower lobe. This is new compared to the October 2019 prior study. No new infiltrate is seen. Mild left upper lobe linear platelike atelectasis is present as well. There is no evidence of pleural effusion or pericardial effusion. No mediastinal mass or adenopathy is observed. Superior vena cava is in widely patent and unremarkable. No chest wall mass lesion is seen. Postoperative fibrosis is seen in the linear fashion along the right pectoralis muscle and right chest wall. The appearance is felt to be unchanged from the November 24, 2019 study. No axillary or supraclavicular mass or adenopathy is observed on either side. No are mole adrenals are seen bilaterally in the upper abdomen. There are multiple small accessory splenule is period clips are noted in the gallbladder fossa post cholecystectomy. The visualized upper abdominal structures are otherwise unremarkable. Bone window settings show no bony destructive lesion. IMPRESSION: Status post right mastectomy and radiation with mild linear subpleural fibrosis on the right unchanged. There is left basilar plate-like atelectasis. No pleural effusion, mass or adenopathy is observed. <Electronically signed by Tim Lafleur > 07/23/20 2637
[2020-07-23 12:48] VITALS: BP 105/64
[2020-07-25 11:48] LABS: VITAMIN B12 LEVEL 1522 PG/ML
[2020-07-25 11:49] LABS: FOLATE > 24.0 NG/ML
== END 2020-07-23 13:30 | disposition home or self-care (01) ==
LOC: M ED 08:49
DX: I89.0 Lymphedema, not elsewhere classified (principal); J98.11 Atelectasis; R23.3 Spontaneous ecchymoses; I11.0 Hypertensive heart disease with heart failure; J44.9 Chronic obstructive pulmonary disease, unspecified; I50.9 Heart failure, unspecified; I48.91 Unspecified atrial fibrillation; I25.10 Atherosclerotic heart disease of native coronary artery without angina pectoris; E78.5 Hyperlipidemia, unspecified; F33.9 Major depressive disorder, recurrent, unspecified; F41.9 Anxiety disorder, unspecified; M06.9 Rheumatoid arthritis, unspecified; E03.9 Hypothyroidism, unspecified; Z94.1 Heart transplant status; Z92.21 Personal history of antineoplastic chemotherapy; Z85.3 Personal history of malignant neoplasm of breast; Z98.84 Bariatric surgery status; Z79.899 Other long term (current) drug therapy; Z79.890 Hormone replacement therapy; Z79.82 Long term (current) use of aspirin; Z88.1 Allergy status to other antibiotic agents; Z88.2 Allergy status to sulfonamides; Z88.5 Allergy status to narcotic agent; Z88.8 Allergy status to other drugs, medicaments and biological substances
CPT/HCPCS: 36415; 71260; 80048; 82607; 82728; 82746; 83550; 85025; 85610; 85730; 93971; 99284; Q9967

== ENCOUNTER → 2020-07-25 | Outpatient (CLI) | payer MEDICARE ==
[~2020-07-25] MED LIST changes: +EXEM25TA PO; +FOLI1TAB11 PO; +HYDR200T3 PO; +METH2.5T48 PO; +METO1TAB32 PO; +PRED5TA PO
[2020-07-25 11:07] LABS: BASO % 0.8 % (0.0-1.0); EOS # 0.1 10^3/uL (0.0-0.5); EOS % 1.5 % (0.0-3.0); HEMATOCRIT 40.8 % (36.0-47.0); HEMOGLOBIN 13.5 g/dl (12.0-15.5); LYMPH # 0.6 10^3/uL (1.5-5.0); LYMPH % 15.2 % (24.0-44.0); MEAN CORPUSCULAR HEMOGLOBIN 34.3 pg (27.0-33.0); MEAN CORPUSCULAR HGB CONC 33.1 g/dl (32.0-36.5); MEAN CORPUSCULAR VOLUME 103.6 fl (80.0-96.0); MONO # 0.4 10^3/uL (0.0-0.8); MONO % 10.8 % (2.0-8.0); NEUTROPHILS # 2.7 10^3/uL (1.5-8.5); NEUTROPHILS % 69.6 % (36.0-66.0); PLATELET COUNT, AUTOMATED 217 10^3/uL (150-450); RED BLOOD COUNT 3.94 10^6/uL (4.00-5.40); WHITE BLOOD COUNT 3.9 10^3/uL (4.0-10.0)
[2020-07-25 11:28] LABS: ALBUMIN 3.4 GM/DL (3.2-5.2); ALT/SGPT 17 U/L (12-78); BILIRUBIN,TOTAL 0.5 MG/DL (0.2-1.0); BLOOD UREA NITROGEN 18 MG/DL (7-18); CALCIUM LEVEL 8.6 MG/DL (8.5-10.1); CARBON DIOXIDE LEVEL 33 MEQ/L (21-32); CHLORIDE LEVEL 105 MEQ/L (98-107); CREATININE FOR GFR 0.97 MG/DL (0.55-1.30); GLOMERULAR FILTRATION RATE > 60.0 (>51); GLUCOSE, FASTING 79 MG/DL (70-100); MAGNESIUM LEVEL 1.7 MG/DL (1.8-2.4); SODIUM LEVEL 142 MEQ/L (136-145); TOTAL PROTEIN 6.2 GM/DL (6.4-8.2); TRIGLYCERIDES LEVEL 51 MG/DL (<150)
== END ==
LOC: M LAB 09:17
PROVIDERS: ATTEND Nurse Practitioner Acute Care
DX: D84.9 Immunodeficiency, unspecified (principal); Z94.1 Heart transplant status; Z79.899 Other long term (current) drug therapy

== ENCOUNTER → 2020-07-28 | Outpatient (CLI) | payer MEDICARE | LOC: M LABSMTC 10:08 | PROVIDERS: ATTEND Anesthesiology | DX: Z01.812 Encounter for preprocedural laboratory examination (principal); Z20.822 Contact with and (suspected) exposure to COVID-19 ==

== ENCOUNTER 2020-08-02 10:23 | Day surgery (SDC) | payer MEDICARE ==
[~2020-08-02] VITALS: Ht 170.2 cm; Wt 85.3 kg
[~2020-08-02 10:23] MED LIST changes: +LIDOCAINE 2% 100MG/5ML SDV (FOR ANES.) As Ordered ONE; +NS 1,000 ML IV ONE; +propofoL 200 MG/20 ML VIAL As Ordered ONE
--- NOTE | 2020-08-02 12:30 | ROOR ---
Patient Name: Tom Hagan Procedure Date: 08/02/2020 12:00 PM Date of : 1965 Age: 55 Room: [facility] Gender: Female Note Status: Finalized Procedure: Colonoscopy Indications: High risk colon cancer surveillance: Personal history of colonic polyps, Last colonoscopy: November 2017 Providers: Levi Car MD Referring MD: Dalton Payne MD Requesting Provider: Medicines: Monitored Anesthesia Care Complications: No immediate complications. Procedure: Pre-Anesthesia Assessment: - Prior to the procedure, a History and Physical was performed, and patient medications and allergies were reviewed. The patient is competent. The risks and benefits of the procedure and the sedation options and risks were discussed with the patient. All questions were answered and informed consent was obtained. Patient identification and proposed procedure were verified by the physician, the nurse and the anesthesiologist in the procedure room. Mental Status Examination: alert and oriented. Airway Examination: normal oropharyngeal airway and neck mobility. Prophylactic Antibiotics: The patient does not require prophylactic antibiotics. Prior Anticoagulants: The patient has taken no previous anticoagulant or antiplatelet agents. ASA Grade Assessment: III - A patient with severe systemic disease. After reviewing the risks and benefits, the patient was deemed in satisfactory condition to undergo the procedure. The anesthesia plan was to use monitored anesthesia care (MAC). Immediately prior to administration of medications, the patient was re-assessed for adequacy to receive sedatives. The heart rate, respiratory rate, oxygen saturations, blood pressure, adequacy of pulmonary ventilation, and response to care were monitored throughout the procedure. The physical status of the patient was re-assessed after the procedure. The Colonoscope was introduced through the anus and advanced to the cecum, identified by appendiceal orifice and ileocecal valve. The colonoscopy was performed without difficulty. The patient tolerated the procedure well. The quality of the bowel preparation was excellent. Findings: The perianal and digital rectal examinations were normal. A single medium-mouthed diverticulum was found in the proximal ascending colon. The exam was otherwise without abnormality. Impression: - Diverticulosis in the proximal ascending colon. - The examination was otherwise normal. - No specimens collected. Recommendation: - Discharge patient to home. - Resume previous diet. - Continue present medications. Procedure Code(s): --- Professional --- G0105, Colorectal cancer screening; colonoscopy on individual at high risk Diagnosis Code(s): --- Professional --- Z86.010, Personal history of colonic polyps K57.30, Diverticulosis of large intestine without perforation or abscess without bleeding CPT copyright 2019 [employer]. All rights reserved. The codes documented in this report are preliminary and upon director of patient financial services review may be revised to meet current compliance requirements. Levi Cra MD Levi Car MD 08/02/2020 12:29:52 PM Electronically signed by Levi Car MD Number of Addenda: 0 Note Initiated On: 08/02/2020 12:00 PM Estimated Blood Loss: Estimated blood loss: none.
[2020-08-02 12:41] VITALS: BP 122/75
== END 2020-08-02 12:42 | disposition home or self-care (01) ==
LOC: M OPP 10:23
PROVIDERS: ATTEND Surgery
DX: Z12.11 Encounter for screening for malignant neoplasm of colon (principal); Z86.010 Personal history of colon polyps; K57.30 Diverticulosis of large intestine without perforation or abscess without bleeding; Z79.82 Long term (current) use of aspirin; Z79.891 Long term (current) use of opiate analgesic; Z79.899 Other long term (current) drug therapy; Z88.1 Allergy status to other antibiotic agents; Z88.2 Allergy status to sulfonamides; Z88.5 Allergy status to narcotic agent; Z88.8 Allergy status to other drugs, medicaments and biological substances; Z85.3 Personal history of malignant neoplasm of breast; Z94.1 Heart transplant status

== ENCOUNTER → 2020-08-12 | Outpatient (CLI) | payer MEDICARE ==
[~2020-08-12] MED LIST changes: -LIDOCAINE 2% 100MG/5ML SDV (FOR ANES.) As Ordered ONE; -NS 1,000 ML IV ONE; -propofoL 200 MG/20 ML VIAL As Ordered ONE
[2020-08-12 06:48] LABS: MEAN CORPUSCULAR HEMOGLOBIN 34.8 pg (27.0-33.0); MEAN CORPUSCULAR HGB CONC 32.6 g/dl (32.0-36.5); PLATELET COUNT, AUTOMATED 219 10^3/uL (150-450); RED BLOOD COUNT 4.02 10^6/uL (4.00-5.40); WHITE BLOOD COUNT 3.7 10^3/uL (4.0-10.0)
[2020-08-12 07:09] LABS: ALBUMIN 3.4 GM/DL (3.2-5.2); ALT/SGPT 19 U/L (12-78); BILIRUBIN,TOTAL 0.4 MG/DL (0.2-1.0); BLOOD UREA NITROGEN 17 MG/DL (7-18); CALCIUM LEVEL 8.4 MG/DL (8.5-10.1); CARBON DIOXIDE LEVEL 31 MEQ/L (21-32); CHLORIDE LEVEL 107 MEQ/L (98-107); CREATININE FOR GFR 0.99 MG/DL (0.55-1.30); GLOMERULAR FILTRATION RATE > 60.0 (>51); GLUCOSE, FASTING 80 MG/DL (70-100); POTASSIUM SERUM 3.7 MEQ/L (3.5-5.1); SODIUM LEVEL 143 MEQ/L (136-145); TOTAL PROTEIN 6.4 GM/DL (6.4-8.2)
[2020-08-12 07:18] LABS: BASOPHILS 2 % (0-1); LYMPHOCYTES 22 % (16-44); MONOCYTES 4 % (0-5); NEUTROPHILS 72 % (28-66); PLATELET ESTIMATE NORMAL (NORMAL)
== END ==
LOC: M LAB 06:14
PROVIDERS: ATTEND Internal Medicine
DX: M05.79 Rheumatoid arthritis with rheumatoid factor of multiple sites without organ or systems involvement (principal)

== ENCOUNTER → 2020-08-30 | Outpatient (CLI) | payer MEDICARE ==
[2020-08-30 08:32] LABS: BASO % 0.3 % (0.0-1.0); EOS # 0.1 10^3/uL (0.0-0.5); EOS % 1.8 % (0.0-3.0); HEMATOCRIT 42.6 % (36.0-47.0); HEMOGLOBIN 14.3 g/dl (12.0-15.5); LYMPH # 0.6 10^3/uL (1.5-5.0); LYMPH % 14.8 % (24.0-44.0); MEAN CORPUSCULAR HEMOGLOBIN 35.9 pg (27.0-33.0); MEAN CORPUSCULAR HGB CONC 33.6 g/dl (32.0-36.5); MONO # 0.6 10^3/uL (0.0-0.8); MONO % 15.4 % (2.0-8.0); NEUTROPHILS # 2.4 10^3/uL (1.5-8.5); NEUTROPHILS % 63.5 % (36.0-66.0); PLATELET COUNT, AUTOMATED 274 10^3/uL (150-450); RED BLOOD COUNT 3.98 10^6/uL (4.00-5.40); WHITE BLOOD COUNT 3.8 10^3/uL (4.0-10.0)
[2020-08-30 09:05] LABS: ALBUMIN 3.4 GM/DL (3.2-5.2); BILIRUBIN,TOTAL 0.5 MG/DL (0.2-1.0); CALCIUM LEVEL 8.8 MG/DL (8.5-10.1); CREATININE FOR GFR 1.1 MG/DL (0.55-1.30); GLOMERULAR FILTRATION RATE 54.9 (>51); MAGNESIUM LEVEL 1.9 MG/DL (1.8-2.4); POTASSIUM SERUM 3.8 MEQ/L (3.5-5.1); TOTAL PROTEIN 6.7 GM/DL (6.4-8.2)
== END ==
LOC: M LAB 07:10
PROVIDERS: ATTEND Nurse Practitioner Acute Care
DX: D84.9 Immunodeficiency, unspecified (principal); Z94.1 Heart transplant status; Z79.899 Other long term (current) drug therapy

== ENCOUNTER → 2020-09-07 | Outpatient (CLI) | payer MEDICARE ==
--- NOTE | 2020-09-07 10:15 | RADONC ---
Radiation Oncology Hx/FUP Radiation Oncology Hx/FUP Date of Service: September 07, 2020 Pt Identifier Tom Hagan is a 55 year old female with a history of OHT (2019 @ [facility]) on chronic immunosuppression seen for a followup visit today at the department of radiation oncology for a history of ht breast cancer [id number] ER/IN+ HER2- s/p mastectomy and ALND, adjuvant chemotherapy and PMRT 50.4 Gy in 28 fractions completed 03/14/20. She continues on exemestane. She has CTCAE grade 3 lymphedema of the RUE and chest and has a pending vascular bypass surgery at [facility] to attempt to ameliorate this complication of therapy. Diagnosis/Treatment History Oncologic History 04/24/19 Mammogram and US with right subareolar lesion 05/11/19 Biopsy showing ILC grade 1 ER/IN+ HER2- 05/27/19 MRI negative for regional disease 06/04/19 Axillary US with no pathologically enlarged LN 09/11/19 Right mastectomy ([facility], Kelsie) [id number] 11/09 LN+ SIDNEY+ Grade 1 ILC October-December 2020 TC chemo x 4 cycles @ [facility] 02/02/20-03/14/20 PMRT 50.4 Gy in 28 fractions with VMAT 07/13/20 Assessed with CTCAE grade 3 lymphedema, this was present starting in Summer 2019 post ALND, gradually has worsened since RT Interval History Tom reports she has ongoing tenderness in the right chest, using the flexitouch pump but feels this is not calibrated well and may be making her edema worse. Arm is heavy and sore at all times. Reports she is having vascular bypass operation at [facility] to help with this. Appetite is good. Energy levels are so-so. Current Therapy Exemestane Stage Right breast cancer [id number] ER/IN+ HER2- ILC Grade 1 Stage IB Social History: Former smoker 15 pack years Former drinker Allergies / Meds Allergies: Coded Allergies: Sulfa (Sulfonamide Antibiotics) (Verified Allergy, Intermediate, RASH AND HIVES, 07/27/20) vancomycin (Verified Adverse Reaction, Intermediate, rash on chest, head felt hot, 07/27/20) morphine (Verified Adverse Reaction, Mild, lethargy, 07/27/20) pseudoephedrine (Unverified Adverse Reaction, Unknown, CONTRAINDICATION, 07/27/20) CONTRAINDICATION Home Meds Active Scripts Albuterol Sulfate (Proair Respiclick) 90 Mcg Aer.pow.ba, 2 PUFF INH Q4-6HP PRN for shortness of breath, #1 INHALER 3 Refills Prov:MILTON STOLL MD 05/11/20 Albuterol Sulfate (Albuterol Sulfate) 1.25 Mg/3 Ml Vial.neb, 1 VIAL NEB Q4-6HP PRN for wheezing for 10 Days, #150 ML 3 Refills Prov:MILTON STOLL MD 05/11/20 Acetaminophen (Acetaminophen) 325 Mg Tablet, 650 MG PO Q6HP PRN for PAIN / FEVER for 30 Days, #30 TAB Prov:Josefina Lua PIPELINE GANG SUPERVISOR 07/01/19 Reported Medications Methotrexate Sodium (Methotrexate) 2.5 Mg Tablet, 10 MG PO 1XWK DOES ON Thursdays07/23/20 Folic Acid (Folic Acid) 1 Mg Tablet, 1 MG PO DAILY 07/23/20 Metoprolol Succinate (Metoprolol Succinate) 25 Mg Tab.er.24h, 12.5 MG PO DAILY 07/23/20 Exemestane (Exemestane) 25 Mg Tablet, 25 MG PO DAILY 07/23/20 Hydroxychloroquine Sulfate (Hydroxychloroquine Sulfate) 200 Mg Tablet, 1 TAB PO BID 07/23/20 Tacrolimus (Tacrolimus) 1 Mg Capsule, 3 CAP PO QPM for 30 Days, #90 CAP 07/23/20 Prednisone (Prednisone) 5 Mg Tablet, 7 MG PO DAILY for 30 Days, #30 TAB 07/23/20 Oxycodone Hcl (Oxycodone HCl) 15 Mg Tablet, 5 MG PO QIDP PRN for pain MDD 4 Tablet(s) for 30 Days, #120 TAB 12/26/19 Ipratropium/Albuterol Sulfate (Iprat-Albut 0.5-3(2.5) mg/3 ml) 3 Ml Ampul.neb, 3 ML NEB Q6HP PRN for SHORTNESS OF BREATH, DWAYNE 10/05/19 Calcium Carbonate/Vitamin D3 (Calcium 1,000 + D3 Caplet) 1 Each Tablet, 1 TAB PO BID, TAB 10/05/19 Pantoprazole Sodium (Pantoprazole Sodium) 40 Mg Tablet.dr, 40 MG PO DAILY, TAB 06/30/19 Tacrolimus (Tacrolimus) 1 Mg Capsule, 2 MG PO QAM, CAP 06/30/19 Multivitamins (Thera M Plus Tablet) 1 Each Tablet, 1 TAB PO DAILY, TAB 06/30/19 Cyanocobalamin (Vitamin B-12) (Vitamin B-12) 1,000 Mcg Tablet, 1000 MCG PO DAILY, TAB 06/30/19 Torsemide (Torsemide) 20 Mg Tablet, 10 MG PO DAILY, TAB 06/30/19 Magnesium Oxide (Magnesium Oxide) 400 Mg Tablet, 400 MG PO BID, TAB 06/30/19 Levothyroxine Sodium (LEVOTHYROXINE SODIUM) 75 Mcg Tablet, 75 MCG PO DAILY, TAB 06/30/19 Venlafaxine HCl (Venlafaxine HCl ER) 75 Mg Cap.er.24h, 75 MG PO DAILY 06/30/19 Trazodone HCl (Trazodone HCl) 100 Mg Tablet, 200 MG PO QHS, TAB 06/30/19 Losartan Potassium (Losartan Potassium) 50 Mg Tablet, 50 MG PO QHS 06/30/19 Potassium Chloride (Klor-Con M20) 20 Meq Tab.er.prt, 20 MEQ PO BID TAKES AT NOON/1800 06/30/19 Alprazolam (Alprazolam) 0.5 Mg Tablet, 0.5 MG PO BIDP PRN for ANXIETY 04/03/19 Amlodipine Besylate (Norvasc) 10 Mg Tab, 10 MG PO DAILY 08/01/18 Pravastatin Sodium (Pravastatin Sodium) 40 Mg Tab, 40 MG PO QHS 08/01/18 Aspirin (Aspir 81) 81 Mg Tab, 81 MG PO DAILY 08/01/18 Budesonide/Formoterol (Symbicort 160-4.5 Mcg Inhaler) 60 Puff/Inhaler Aers, 2 PUFF INH BID, INHALER 07/12/17 Review of Systems Review of Systems Constitutional: Reports: Fatigue; Denies: Chills, Fever, Weight Loss Eyes: Denies: Pain HEENT: Denies: Head Aches Skin: Denies: Rash Breast: Reports: Breast Pain or Tenderness; Denies: New Breast Lumps / Masses, Breast Skin Changes Pulmonary: Denies: Dyspnea Cardiovascular: Denies: Chest Pain Gastrointestinal: Denies: Abdominal Pain Hematologic: Denies: Bruising Endocrine: Denies: Cold Intolerance Musculoskeletal: Denies: Neck pain, Leg pain Neurological: Denies: Weakness, Numbness Psych: Reports: Mood Normal Physical Examination Vital Signs Wt 202 lbs T 98.1 P 120 RR 18 BP 124/80 O2 95% Pain 0 Fatigue 0 General Exam: Positive: Alert, Cooperative, No Acute Distress Eye Exam: Positive: PERRLA, EOMI ENT EXAM: Positive: Atraumatic Neck Exam: Positive: Supple, Other (Mild hyperpigmentation right superclavicular fossa); Negative: Lymphadenopathy Chest Exam: Positive: Clear to auscultation Heart Exam: Positive: Rate Normal Breast Exam: Positive: Other Breast Findings (Right chest wall with palpable subcutaneous fibrosis and mild hyperpigmentation of the overlying skin, there are no palpable lesions or masses. There are no palpable axillary nodes, there is lymphedema in the right axilla and RUE, ROM intact. Left breast and axilla are without palpale lesions. ) Abdomen Exam: Positive: Soft Skin Exam: Positive: Nl turgor and temperature Neuro Exam: Positive: Normal Gait, Normal Speech, Strength at 5/5 X4 ext, Cranial Nerves 3-12 NL Psych Exam: Positive: Mental status NL Diagnostic and Laboratory Diagnostic Review Radiologic images, relevant labs and pathology reports were personally reviewed and discussed with Ms. Hagan. Assessment and Plan Impression Assessment Ms. Hagan is a 55 year old female with a history of OHT (2019 @ [facility]) on chronic immunosuppression seen for a followup visit today at the department of radiation oncology for a history of ht breast cancer [id number] ER/IN+ HER2- s/p mastectomy and ALND, adjuvant chemotherapy and PMRT 50.4 Gy in 28 fractions completed 03/14/20. She continues on exemestane. She has CTCAE grade 3 lymphedema of the RUE and chest and has a pending vascular bypass surgery at [facility] to attempt to ameliorate this complication of therapy. She has no evidence of recurrent disease on exam today. She should have a screening mammogram on the contralateral side done this year, last was on 04/25/20 and was normal. 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 Fortunately she states that she does not have gerber right chest wall pain per se. We agreed to follow up in 6 months time. She will call with any concerns in the interim and also have medical oncology follow up in that interval. We also reviewed that thyroid function can change control manager time in response to supraclavicular fossa RT. She is on thyroid replacement currently with her human resource intern, and is monitored annually, this constitutes adequate follow up for this. She also has close cardiology follow up so I will not be monitoring her cardiovascular status (except peripherally) in this survivorship phase of care. Performance Status ECOG 1 Plan 6 month follow up Ms. Hagan was encouraged to call with questions or concerns in the interim period. Billing Statement Total time of [25] minutes was spent preparing for the visit [2], obtaining HPI [4], examining the patient [4], reviewing diagnostic tests [1], discussing management options [5], coordinating care [1], and writing this note [8]. MILTON STOLL MD September 07, 2020 10:15
== END ==
LOC: M ONCR 09:10
PROVIDERS: ATTEND General Practice
DX: C50.111 Malignant neoplasm of central portion of right female breast (principal)

== ENCOUNTER → 2020-09-20 | Outpatient (CLI) | payer MEDICARE ==
[2020-09-20 08:55] LABS: HEMATOCRIT 41.5 % (36.0-47.0); HEMOGLOBIN 13.8 g/dl (12.0-15.5); MEAN CORPUSCULAR HEMOGLOBIN 36.4 pg (27.0-33.0); MEAN CORPUSCULAR HGB CONC 33.3 g/dl (32.0-36.5); MEAN CORPUSCULAR VOLUME 109.5 fl (80.0-96.0); PLATELET COUNT, AUTOMATED 201 10^3/uL (150-450); RED BLOOD COUNT 3.79 10^6/uL (4.00-5.40); WHITE BLOOD COUNT 3.7 10^3/uL (4.0-10.0)
[2020-09-20 09:18] LABS: ALBUMIN 3.2 GM/DL (3.2-5.2); ALT/SGPT 22 U/L (12-78); BILIRUBIN,TOTAL 0.4 MG/DL (0.2-1.0); BLOOD UREA NITROGEN 13 MG/DL (7-18); CALCIUM LEVEL 8.3 MG/DL (8.5-10.1); CARBON DIOXIDE LEVEL 28 MEQ/L (21-32); CHLORIDE LEVEL 111 MEQ/L (98-107); CREATININE FOR GFR 0.86 MG/DL (0.55-1.30); GLOMERULAR FILTRATION RATE > 60.0 (>51); GLUCOSE, FASTING 85 MG/DL (70-100); MAGNESIUM LEVEL 1.6 MG/DL (1.8-2.4); POTASSIUM SERUM 3.8 MEQ/L (3.5-5.1); SODIUM LEVEL 145 MEQ/L (136-145); TOTAL PROTEIN 6.1 GM/DL (6.4-8.2); TRIGLYCERIDES LEVEL 59 MG/DL (<150)
[2020-09-20 09:31] LABS: ATYPICAL LYMPH 1 % (0-5); BASOPHILS 2 % (0-1); EOSINOPHILS 2 % (0-3); LYMPHOCYTES 18 % (16-44); MONOCYTES 13 % (0-5); NEUTROPHILS 64 % (28-66)
[2020-09-20 09:32] LABS: PLATELET ESTIMATE NORMAL (NORMAL)
== END ==
LOC: M LAB 08:08
PROVIDERS: ATTEND Nurse Practitioner Acute Care
DX: Z94.1 Heart transplant status (principal); D84.9 Immunodeficiency, unspecified; Z79.899 Other long term (current) drug therapy

== ENCOUNTER 2020-10-29 07:51 | Emergency (ER) | payer MEDICARE ==
[~2020-10-29] VITALS: Ht 170.2 cm; Wt 93.6 kg
[2020-10-29] MEDS ORDERED: IPRATROPIUM 0.5MG/ALBUTEROL 2.5MG INH SOL UD 3ML (DUONEB) NEB ONE ×2 (08:15→09:45)
[2020-10-29] MEDS ORDERED: ALBUTEROL SULFATE 2.5 MG/0.5 ML INH NEB SOLN INH ONE (08:15)
--- NOTE | 2020-10-29 08:39 | REP ---
INDICATION: DYSPNEA/COUGH COMPARISON: 05/11/2020 TECHNIQUE: Portable AP view of the chest FINDINGS: The mediastinum and cardiac silhouette are stable and within normal limits for portable technique. Prior sternotomy. The lung durand without focal consolidation, effusion, or pneumothorax. Skeletal structures are intact. IMPRESSION: No acute cardiopulmonary process appreciated. <Electronically signed by Chris Senior > 10/29/20 [id number]
[2020-10-29 08:42] LABS: BASO % 0.8 % (0.0-1.0); EOS # 0.1 10^3/uL (0.0-0.5); EOS % 2.2 % (0.0-3.0); HEMATOCRIT 40.4 % (36.0-47.0); HEMOGLOBIN 13.4 g/dl (12.0-15.5); LYMPH # 0.5 10^3/uL (1.5-5.0); MEAN CORPUSCULAR HGB CONC 33.2 g/dl (32.0-36.5); MEAN CORPUSCULAR VOLUME 111.6 fl (80.0-96.0); MONO # 0.4 10^3/uL (0.0-0.8); MONO % 11.4 % (2.0-8.0); NEUTROPHILS # 2.6 10^3/uL (1.5-8.5); NEUTROPHILS % 71.2 % (36.0-66.0); PLATELET COUNT, AUTOMATED 173 10^3/uL (150-450); RED BLOOD COUNT 3.62 10^6/uL (4.00-5.40); WHITE BLOOD COUNT 3.6 10^3/uL (4.0-10.0)
[2020-10-29 08:57] LABS: INR 0.94; PARTIAL THROMBOPLASTIN TIME 24.1 SECONDS (24.2-38.5); PROTHROMBIN TIME 12.8 SECONDS (12.5-14.3)
[2020-10-29 09:18] LABS: ALBUMIN 3.3 GM/DL (3.2-5.2); ALT/SGPT 23 U/L (12-78); BILIRUBIN,DIRECT 0.2 MG/DL (0.0-0.2); BILIRUBIN,TOTAL 0.5 MG/DL (0.2-1.0); BLOOD UREA NITROGEN 12 MG/DL (7-18); CALCIUM LEVEL 8.2 MG/DL (8.5-10.1); CARBON DIOXIDE LEVEL 29 MEQ/L (21-32); CHLORIDE LEVEL 107 MEQ/L (98-107); CREATININE FOR GFR 0.86 MG/DL (0.55-1.30); GLOMERULAR FILTRATION RATE > 60.0 (>51); GLUCOSE, FASTING 81 MG/DL (70-100); MAGNESIUM LEVEL 1.7 MG/DL (1.8-2.4); NT-PRO BNP 175 PG/ML (<125); SODIUM LEVEL 143 MEQ/L (136-145); TOTAL PROTEIN 6.5 GM/DL (6.4-8.2)
[2020-10-29] MEDS ORDERED: methylPREDNISolone 125MG 2ML VIAL IV ONE (10:10)
--- NOTE | 2020-10-29 10:49 | ECGEPIP ---
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
[2020-10-29 12:16] VITALS: BP 135/85
[2020-10-29] MEDS ORDERED: PRED20TA PO (12:20)
== END 2020-10-29 12:58 | disposition home or self-care (01) ==
LOC: M ED 07:51
DX: J44.0 Chronic obstructive pulmonary disease with (acute) lower respiratory infection (principal); B34.8 Other viral infections of unspecified site; I10 Essential (primary) hypertension; E78.9 Disorder of lipoprotein metabolism, unspecified; F33.9 Major depressive disorder, recurrent, unspecified; F41.9 Anxiety disorder, unspecified; Z79.899 Other long term (current) drug therapy; Z79.82 Long term (current) use of aspirin; Z88.1 Allergy status to other antibiotic agents; Z88.2 Allergy status to sulfonamides; Z88.5 Allergy status to narcotic agent; Z88.8 Allergy status to other drugs, medicaments and biological substances; F17.210 Nicotine dependence, cigarettes, uncomplicated
CPT/HCPCS: 36600; 71045; 80047; 80048; 80076; 82803; 83605; 83735; 83880; 84436; 84443; 84484; 85025; 85610; 85730; 87040; 87798; 93005; 93041; 96374; 99285; J2930

== ENCOUNTER 2020-11-11 16:04 | Emergency (ER) | payer MEDICARE ==
[~2020-11-11] VITALS: Ht 170.2 cm; Wt 89.5 kg
--- NOTE | 2020-11-11 16:37 | REP ---
INDICATION: DYSPNEA/COUGH. COMPARISON: Portable exam of 10/29/2020 TECHNIQUE: PA and lateral FINDINGS: The lung durand are unchanged. No acute patchy parenchymal opacities or pleural effusions have developed. The heart is not enlarged the pleural angles are sharp. The osseous structures are unchanged. IMPRESSION: No acute cardiopulmonary disease or significant change compared to the prior exam <Electronically signed by Bernardo Ruiz > 11/11/20 [id number]
[2020-11-11 17:04] LABS: HEMATOCRIT 39.6 % (36.0-47.0); HEMOGLOBIN 13.9 g/dl (12.0-15.5); MEAN CORPUSCULAR HEMOGLOBIN 38.4 pg (27.0-33.0); MEAN CORPUSCULAR HGB CONC 35.1 g/dl (32.0-36.5); MEAN CORPUSCULAR VOLUME 109.4 fl (80.0-96.0); PLATELET COUNT, AUTOMATED 172 10^3/uL (150-450); RED BLOOD COUNT 3.62 10^6/uL (4.00-5.40)
[2020-11-11 17:37] LABS: ALBUMIN 3.3 GM/DL (3.2-5.2); ALT/SGPT 39 U/L (12-78); ANISOCYTOSIS 1+; BILIRUBIN,DIRECT 0.3 MG/DL (0.0-0.2); BLOOD UREA NITROGEN 14 MG/DL (7-18); CALCIUM LEVEL 8.2 MG/DL (8.5-10.1); CARBON DIOXIDE LEVEL 29 MEQ/L (21-32); CHLORIDE LEVEL 104 MEQ/L (98-107); CK-MB VALUE MASS < 1.0 NG/ML (<3.6); CPK CREATINE PHOSPHOKINASE 112 U/L (26-192); CREATININE FOR GFR 1.15 MG/DL (0.55-1.30); EOSINOPHILS 1 % (0-3); GLOMERULAR FILTRATION RATE 52.2 (>51); GLUCOSE, FASTING 125 MG/DL (70-100); LYMPHOCYTES 3 % (16-44); MB/CK RELATIVE INDEX 0.89 (< OR =4); MONOCYTES 9 % (0-5); NEUTROPHILS 85 % (28-66); NT-PRO BNP 259 PG/ML (<125); PLATELET ESTIMATE NORMAL (NORMAL); POLYCHROMASIA 1+; POTASSIUM SERUM 3.9 MEQ/L (3.5-5.1); SODIUM LEVEL 140 MEQ/L (136-145); THYROID STIMULATING HORMONE 0.819 uIU/ML (0.358-3.740); TOTAL PROTEIN 6.2 GM/DL (6.4-8.2); TROPONIN I < 0.02 NG/ML (< 0.10)
[2020-11-11] MEDS ORDERED: CEFTAROLINE FOSAMIL 600 MG in D5W MINI-BAG PLUS 50 ML IV ONE (20:15)
[2020-11-11] MEDS ORDERED: ACETAMINOPHEN TAB 650MG DOSE (2X325MG) PO ONE (20:15)
[2020-11-11] MEDS ORDERED: NS 1,000 ML IV ONE (20:20)
--- NOTE | 2020-11-11 21:44 | REPVR ---
PROCEDURE INFORMATION: Exam: CT Chest Without Contrast; Diagnostic Exam date and time: 11/11/2020 8:21 PM Age: 55 years old Clinical indication: Cough; Additional info: Cough, SOB TECHNIQUE: Imaging protocol: Diagnostic computed tomography of the chest without contrast. 3D rendering (Not supervised by radiologist): MIP and/or 3D reconstructed images were created by the technologist. Radiation optimization: All CT scans at this facility use at least one of these dose optimization techniques: automated exposure control; mA and/or kV adjustment per patient size (includes targeted exams where dose is matched to clinical indication); or iterative reconstruction. COMPARISON: CT Chest with contrast 07/23/2020 11:47 AM FINDINGS: Probable mild subsegmental atelectasis in the left lingula, slightly more prominent than on previous examination. Lungs are otherwise clear. No pleural or pericardial effusion. No evidence of pneumothorax. Mediastinal structures are grossly normal. Mild atherosclerotic changes in the aortic arch. No thoracic lymphadenopathy. Sequelae of sternotomy. Visualized osseous structures are otherwise unremarkable for age. Limited views of the upper abdominal solid organs are grossly normal. Surgical suture at the gastroesophageal junction and along the greater curvature of the stomach likely consistent with previous bariatric surgery. Gallbladder is surgically absent. IMPRESSION: Probable mild subsegmental atelectasis in the left lingula slightly more prominent than on previous examination. No other acute intrathoracic process on this unenhanced examination. Electronically signed by: Umesh Romero On 11/11/2020 21:44:17 PM
[2020-11-11] MEDS ORDERED: IBUPROFEN 400MG TAB PO ONE (23:10)
[2020-11-11 23:59] VITALS: BP 107/63
--- NOTE | 2020-11-12 10:55 | ECGEPIP ---
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
== END 2020-11-12 00:11 | disposition short-term general hospital (02) ==
LOC: M ED 16:04
DX: I89.0 Lymphedema, not elsewhere classified (principal); L03.113 Cellulitis of right upper limb; Z94.1 Heart transplant status; I10 Essential (primary) hypertension; J44.9 Chronic obstructive pulmonary disease, unspecified; E03.9 Hypothyroidism, unspecified; Z79.899 Other long term (current) drug therapy; Z79.82 Long term (current) use of aspirin; Z79.890 Hormone replacement therapy; Z88.1 Allergy status to other antibiotic agents; Z88.2 Allergy status to sulfonamides; Z88.5 Allergy status to narcotic agent; Z88.8 Allergy status to other drugs, medicaments and biological substances; Z87.891 Personal history of nicotine dependence
CPT/HCPCS: 36415; 71046; 71250; 80048; 80076; 82550; 82553; 83605; 83880; 84443; 84484; 85025; 87040; 87798; 93005; 93041; 94760; 96361; 96365; 99284; J0712

== ENCOUNTER 2020-11-22 08:53 | Outpatient (RCR) | payer MEDICARE ==
[~2020-11-22 08:53] MED LIST changes: -CEFD1CAP8 PO; +CEFD300C41 PO; -KLOR20TA42 PO; -LEVO500T3 PO; +LEVO500T4 PO; +LOSA50TA28 PO; -LOSA50TA88 PO; +POTA-141 PO; +POTA-151; -POTA20TA6
[2021-03-31] MEDS ORDERED: LEVO500T4 PO (16:39)
== END 2020-11-26 ==
LOC: M PT 08:53
PROVIDERS: ATTEND General Practice
DX: I97.2 Postmastectomy lymphedema syndrome (principal); C50.111 Malignant neoplasm of central portion of right female breast

== ENCOUNTER → 2020-11-24 | Outpatient (REF) | payer MEDICARE ==
[~2020-11-24] MED LIST changes: +CEFD1CAP8 PO; -CEFD300C41 PO; +KLOR20TA42 PO; +LEVO500T3 PO; -LEVO500T4 PO; -LOSA50TA28 PO; +LOSA50TA88 PO; -POTA-141 PO; -POTA-151; +POTA20TA6
[2020-11-24 12:11] LABS: HEMATOCRIT 42.4 % (36.0-47.0); HEMOGLOBIN 14.1 g/dl (12.0-15.5); MEAN CORPUSCULAR HEMOGLOBIN 37.1 pg (27.0-33.0); MEAN CORPUSCULAR HGB CONC 33.3 g/dl (32.0-36.5); MEAN CORPUSCULAR VOLUME 111.6 fl (80.0-96.0); PLATELET COUNT, AUTOMATED 229 10^3/uL (150-450); WHITE BLOOD COUNT 2.7 10^3/uL (4.0-10.0)
[2020-11-24 12:43] LABS: ALBUMIN 3.6 GM/DL (3.2-5.2); ALT/SGPT 26 U/L (12-78); BILIRUBIN,TOTAL 0.4 MG/DL (0.2-1.0); BLOOD UREA NITROGEN 9 MG/DL (7-18); CALCIUM LEVEL 9.4 MG/DL (8.5-10.1); CARBON DIOXIDE LEVEL 33 MEQ/L (21-32); CHLORIDE LEVEL 106 MEQ/L (98-107); CREATININE FOR GFR 0.84 MG/DL (0.55-1.30); GLOMERULAR FILTRATION RATE > 60.0 (>51); GLUCOSE, FASTING 84 MG/DL (70-100); POTASSIUM SERUM 4.2 MEQ/L (3.5-5.1); SODIUM LEVEL 145 MEQ/L (136-145); TOTAL PROTEIN 6.6 GM/DL (6.4-8.2)
[2020-11-24 12:48] LABS: EOSINOPHILS 1 % (0-3); LYMPHOCYTES 20 % (16-44); MONOCYTES 9 % (0-5); NEUTROPHILS 69 % (28-66); PLATELET ESTIMATE NORMAL (NORMAL)
[2020-11-24 13:13] LABS: ERYTHROCYTE SEDIMENTATION RATE 17 mm/hr (0-30)
== END ==
LOC: M SFHCRHEU 08:33
PROVIDERS: ATTEND Internal Medicine Rheumatology
DX: M05.79 Rheumatoid arthritis with rheumatoid factor of multiple sites without organ or systems involvement (principal)
CPT/HCPCS: 80053; 85025; 85652; 86140; G0463

== ENCOUNTER 2020-12-22 08:18 | Outpatient (RCR) | payer MEDICARE | END 2020-12-27 | LOC: M PT 08:18 | PROVIDERS: ATTEND General Practice | DX: C50.111 Malignant neoplasm of central portion of right female breast (principal) ==

== ENCOUNTER → 2020-12-27 | Outpatient (CLI) | payer MEDICARE ==
[2020-12-27 07:18] LABS: HEMATOCRIT 44.5 % (36.0-47.0); HEMOGLOBIN 14.9 g/dl (12.0-15.5); MEAN CORPUSCULAR HEMOGLOBIN 36.9 pg (27.0-33.0); MEAN CORPUSCULAR HGB CONC 33.5 g/dl (32.0-36.5); MEAN CORPUSCULAR VOLUME 110.1 fl (80.0-96.0); PLATELET COUNT, AUTOMATED 171 10^3/uL (150-450); RED BLOOD COUNT 4.04 10^6/uL (4.00-5.40); WHITE BLOOD COUNT 2.7 10^3/uL (4.0-10.0)
[2020-12-27 07:48] LABS: ALBUMIN 3.2 GM/DL (3.2-5.2); ALT/SGPT 25 U/L (12-78); BILIRUBIN,TOTAL 0.5 MG/DL (0.2-1.0); BLOOD UREA NITROGEN 16 MG/DL (7-18); CALCIUM LEVEL 8.7 MG/DL (8.5-10.1); CARBON DIOXIDE LEVEL 30 MEQ/L (21-32); CHLORIDE LEVEL 110 MEQ/L (98-107); CREATININE FOR GFR 0.85 MG/DL (0.55-1.30); GLOMERULAR FILTRATION RATE > 60.0 (>51); GLUCOSE, FASTING 85 MG/DL (70-100); MAGNESIUM LEVEL 1.7 MG/DL (1.8-2.4); POTASSIUM SERUM 3.8 MEQ/L (3.5-5.1); SODIUM LEVEL 144 MEQ/L (136-145); TOTAL PROTEIN 6.6 GM/DL (6.4-8.2); TRIGLYCERIDES LEVEL 88 MG/DL (<150)
[2020-12-27 07:57] LABS: BASOPHILS 2 % (0-1); EOSINOPHILS 3 % (0-3); LYMPHOCYTES 32 % (16-44); MONOCYTES 9 % (0-5); NEUTROPHILS 53 % (28-66); PLATELET ESTIMATE NORMAL (NORMAL)
== END ==
LOC: M LAB 06:42
PROVIDERS: ATTEND Nurse Practitioner Acute Care
DX: D84.9 Immunodeficiency, unspecified (principal); Z94.1 Heart transplant status; Z79.899 Other long term (current) drug therapy

== ENCOUNTER 2021-01-24 12:00 | Outpatient (RCR) | payer MEDICARE ==
[~2021-01-24 12:00] MED LIST changes: -KLOR20TA42 PO; +POTA-141 PO
== END 2021-01-26 ==
LOC: M PT 12:00
PROVIDERS: ATTEND General Practice
DX: C50.111 Malignant neoplasm of central portion of right female breast (principal)

== ENCOUNTER → 2021-01-30 | Outpatient (CLI) | payer MEDICARE ==
[2021-01-30 08:19] LABS: BASO % 1.1 % (0.0-1.0); EOS # 0.1 10^3/uL (0.0-0.5); EOS % 1.8 % (0.0-3.0); HEMATOCRIT 42.7 % (36.0-47.0); HEMOGLOBIN 14.4 g/dl (12.0-15.5); LYMPH # 0.5 10^3/uL (1.5-5.0); MEAN CORPUSCULAR HEMOGLOBIN 35.2 pg (27.0-33.0); MEAN CORPUSCULAR HGB CONC 33.7 g/dl (32.0-36.5); MEAN CORPUSCULAR VOLUME 104.4 fl (80.0-96.0); MONO # 0.4 10^3/uL (0.0-0.8); MONO % 14.7 % (2.0-8.0); NEUTROPHILS # 1.7 10^3/uL (1.5-8.5); NEUTROPHILS % 63.7 % (36.0-66.0); PLATELET COUNT, AUTOMATED 160 10^3/uL (150-450); RED BLOOD COUNT 4.09 10^6/uL (4.00-5.40); WHITE BLOOD COUNT 2.7 10^3/uL (4.0-10.0)
[2021-01-30 08:41] LABS: ALBUMIN 3.1 GM/DL (3.2-5.2); ALT/SGPT 18 U/L (12-78); BILIRUBIN,TOTAL 0.4 MG/DL (0.2-1.0); BLOOD UREA NITROGEN 14 MG/DL (7-18); CALCIUM LEVEL 8.6 MG/DL (8.5-10.1); CARBON DIOXIDE LEVEL 32 MEQ/L (21-32); CHLORIDE LEVEL 108 MEQ/L (98-107); CREATININE FOR GFR 0.92 MG/DL (0.55-1.30); GLOMERULAR FILTRATION RATE > 60.0 (>51); GLUCOSE, FASTING 112 MG/DL (70-100); MAGNESIUM LEVEL 1.3 MG/DL (1.8-2.4); POTASSIUM SERUM 3.3 MEQ/L (3.5-5.1); SODIUM LEVEL 145 MEQ/L (136-145); TOTAL PROTEIN 6.1 GM/DL (6.4-8.2); TRIGLYCERIDES LEVEL 96 MG/DL (<150)
== END ==
LOC: M LAB 07:05
PROVIDERS: ATTEND Nurse Practitioner Acute Care
DX: Z94.1 Heart transplant status (principal); Z79.899 Other long term (current) drug therapy; D64.9 Anemia, unspecified

== ENCOUNTER → 2021-02-08 | Outpatient (CLI) | payer MEDICARE ==
--- NOTE | 2021-02-08 10:48 | REP ---
INDICATION: RHEU ARTHRITIS W RHEU FACTOR MULT SITE W/O ORG/SYS INVOLV COMPARISON: None. TECHNIQUE: AP, lateral, bilateral oblique views right and left hand. FINDINGS: Right hand: Relatively symmetric generalized age-related changes are appreciated. Findings include subchondral sclerosis with minimal joint space narrowing at the interphalangeal joints. There is mildly prominent arthritic change at the 1st metacarpophalangeal joint including subchondral sclerosis, joint space narrowing and marginal spurring. No focal periarticular soft tissue swelling, erosive changes or calcifications are identified to suggest inflammatory arthritic change. No evidence for acute or healed injury. Left hand: Relatively symmetric generalized age-related changes are appreciated. Findings include subchondral sclerosis with minimal joint space narrowing most pronounced at the 1st metacarpophalangeal joint. No focal periarticular soft tissue swelling, erosive changes or calcifications are identified to suggest inflammatory arthritic change. No evidence for acute or healed injury. IMPRESSION: Generalized bilateral osteoarthritic changes. <Electronically signed by Chris Senior > 02/08/21 [id number]
--- NOTE | 2021-02-08 10:52 | REP ---
INDICATION: RHEU ARTHRITIS W RHEU FACTOR MULT SITE W/O ORG/SYS INVOLV COMPARISON: None. TECHNIQUE: AP, lateral, bilateral oblique views right and left ankle. FINDINGS: Right ankle demonstrates osteopenia and moderate osteoarthritic degenerative changes including subtle cortical irregularities and spurring at the medial and lateral malleoli. The ankle mortise appears intact. Moderate osteoarthritic degenerative changes with spurring and periarticular sclerosis as well as joint space narrowing noted through the visualized mid foot. Mild soft tissue swelling. No evidence for acute fracture or dislocation. Left ankle demonstrates moderate soft tissue swelling which should be correlated with possible acute injury. Osteopenia noted along with moderate arthritic change primarily at the medial malleolus where spurring and osteophyte formation is appreciated. Oblique views demonstrate small corticated densities at the tip of the medial malleolus as well as small linear calcification adjacent to the fibular head raising the possibility of acute/chronic avulsion injuries. Ankle mortise appears intact. Moderate osteoarthritic degenerative changes also include periarticular sclerosis and elements of joint space narrowing through the midfoot. IMPRESSION: 1. Moderate osteoarthritic degenerative changes noted bilaterally (right greater than left). 2. Asymmetric left ankle swelling and findings to suggest small chronic versus acute avulsion injuries at the medial and lateral malleoli. <Electronically signed by Chris Senior > 02/08/21 [id number]
--- NOTE | 2021-02-08 10:57 | REP ---
INDICATION: RHEU ARTHRITIS W RHEU FACTOR MULT SITE W/O ORG/SYS INVOLV COMPARISON: None. TECHNIQUE: AP, lateral, bilateral oblique views right and left foot. FINDINGS: Left foot: Osteopenia and relatively mild/moderate age-related arthritic changes include subchondral sclerosis with joint space narrowing primarily involving the interphalangeal joints. Increased sclerosis with minimal joint space narrowing also suggested at the midfoot level. Soft tissue swelling at the level of the lateral malleolus noted. No significant periarticular erosive changes or loose bodies to suggest inflammatory arthritic disease. No obvious acute fracture. Right foot: Osteopenia and moderate age related arthritic changes include subchondral sclerosis with joint space narrowing primarily involving the interphalangeal joints and 1st metatarsophalangeal joint. Increased sclerosis with minimal joint space narrowing with elements of spurring also noted at the midfoot level. No significant periarticular erosive changes or loose bodies to suggest inflammatory arthritic disease. No obvious acute fracture. IMPRESSION: Bilateral osteopenia and moderate osteoarthritic degenerative changes suggested bilaterally. <Electronically signed by Chris Senior > 02/08/21 [id number]
[2021-02-08 13:08] LABS: BASO % 0.4 % (0.0-1.0); EOS % 1.1 % (0.0-3.0); HEMATOCRIT 43.3 % (36.0-47.0); HEMOGLOBIN 14.4 g/dl (12.0-15.5); LYMPH # 0.4 10^3/uL (1.5-5.0); LYMPH % 13.6 % (24.0-44.0); MEAN CORPUSCULAR HEMOGLOBIN 35.5 pg (27.0-33.0); MEAN CORPUSCULAR HGB CONC 33.3 g/dl (32.0-36.5); MEAN CORPUSCULAR VOLUME 106.7 fl (80.0-96.0); MONO # 0.4 10^3/uL (0.0-0.8); MONO % 16.2 % (2.0-8.0); NEUTROPHILS # 1.8 10^3/uL (1.5-8.5); NEUTROPHILS % 67.6 % (36.0-66.0); PLATELET COUNT, AUTOMATED 163 10^3/uL (150-450); RED BLOOD COUNT 4.06 10^6/uL (4.00-5.40); WHITE BLOOD COUNT 2.7 10^3/uL (4.0-10.0)
[2021-02-08 13:41] LABS: ALBUMIN 3.2 GM/DL (3.2-5.2); ALT/SGPT 22 U/L (12-78); BILIRUBIN,TOTAL 0.5 MG/DL (0.2-1.0); BLOOD UREA NITROGEN 12 MG/DL (7-18); CALCIUM LEVEL 8.2 MG/DL (8.5-10.1); CARBON DIOXIDE LEVEL 33 MEQ/L (21-32); CHLORIDE LEVEL 107 MEQ/L (98-107); CREATININE FOR GFR 0.95 MG/DL (0.55-1.30); GLOMERULAR FILTRATION RATE > 60.0 (>51); GLUCOSE, FASTING 83 MG/DL (70-100); POTASSIUM SERUM 4.1 MEQ/L (3.5-5.1); SODIUM LEVEL 143 MEQ/L (136-145); TOTAL PROTEIN 6.5 GM/DL (6.4-8.2)
[2021-02-08 13:43] LABS: ERYTHROCYTE SEDIMENTATION RATE 17 mm/hr (0-30)
== END ==
LOC: M PLAIMG 08:47
PROVIDERS: ATTEND Internal Medicine Rheumatology
DX: M05.79 Rheumatoid arthritis with rheumatoid factor of multiple sites without organ or systems involvement (principal)

== ENCOUNTER → 2021-02-15 | Outpatient (CLI) | payer MEDICARE ==
--- NOTE | 2021-02-15 09:17 | REP ---
INDICATION: BILAT KNEE PAIN/LEUKOCORIA. COMPARISON: 04/25/2020 left knee, 04/28/2016 right knee. TECHNIQUE: Three views bilateral knees. FINDINGS: There is no acute fracture or dislocation. There is moderate medial symmetrical joint space narrowing with subchondral sclerosis and spurring. There is mild spurring of the superior and inferior poles of the left patella. There is mild bilateral spurring of the lateral patellar facets. There is mild narrowing of the lateral patellofemoral joints with subchondral sclerosis. There appears to be a small right suprapatellar effusion and a moderate left suprapatellar effusion. IMPRESSION: Bilateral degenerative changes have progressed somewhat since prior studies. <Electronically signed by Brody Carrillo > 02/15/21 0911
== END ==
LOC: M SOG 07:54
PROVIDERS: ATTEND Orthopaedic Surgery Adult Reconstructive Orthopaedic Surgery
DX: H44.533 Leucocoria, bilateral (principal); M25.562 Pain in left knee; M25.561 Pain in right knee

== ENCOUNTER → 2021-02-24 | Outpatient (CLI) | payer MEDICARE ==
--- NOTE | 2021-02-24 14:43 | REP ---
INDICATION: OTH CHONDROCALCINOSIS,ASSESS CART/MENISCUS INJURY. COMPARISON: None. TECHNIQUE: Sagittal spin-echo proton density, T2 STIR and T2 FLASH. Coronal spin-echo proton density and fat suppressed proton density. Axial fat suppressed proton density. FINDINGS: There is grade 3 signal change seen in the posterior horn of the lateral meniscus. Grade 1 and grade 3 signal changes are seen in the anterior horn. There is grade 3 signal change seen in a truncated posterior horn of the medial meniscus. The anterior horn is subluxed antro medially. T2 hyper signal is seen throughout a somewhat indistinct anterior cruciate ligament. The posterior cruciate ligament is intact but somewhat bowed. The quadriceps and patellar tendons are intact. T2 hyper signal is seen throughout the medial collateral ligament which is intact. The lateral collateral ligament is intact. The medial and lateral patellar retinacula are intact. There is advanced thinning and irregularity of all articular cartilages with areas involving the medial femoral condyle and medial tibial plateau appearing devoid of articular cartilage. There is advanced tricompartmental marginal osteophytosis with tricompartmental asymmetric narrowing particularly affecting the medial compartment. There is a complex joint effusion and a complex Winters's cyst which measures approximately 5.1 x 2 by 3.4 cm. There is superior parapatellar plica. IMPRESSION: 1. The posterior horn of the medial meniscus is torn. Due to truncation I cannot rule out the possibility of a bucket-handle component. 2. The anterior and posterior horns of the medial meniscus are torn. 3. The anterior cruciate ligament is sprained. I cannot rule out the possibility of a partial tear. 4. There is medial collateral ligamentous sprain. 5. Advanced tricompartmental degenerative change as described above 6. Joint effusion and Winters's cyst with parapatellar plica as described above 7. Other findings as described above. <Electronically signed by Bernardo Ruiz > 02/24/21 [id number]
== END ==
LOC: M PLARAD 11:44
PROVIDERS: ATTEND Orthopaedic Surgery Adult Reconstructive Orthopaedic Surgery
DX: M11.262 Other chondrocalcinosis, left knee (principal); M23.212 Derangement of anterior horn of medial meniscus due to old tear or injury, left knee; M23.222 Derangement of posterior horn of medial meniscus due to old tear or injury, left knee; M17.12 Unilateral primary osteoarthritis, left knee; M71.22 Synovial cyst of popliteal space [Baker], left knee; S83.512A Sprain of anterior cruciate ligament of left knee, initial encounter; S83.412A Sprain of medial collateral ligament of left knee, initial encounter; X58.XXXA Exposure to other specified factors, initial encounter; Y92.9 Unspecified place or not applicable; Y93.9 Activity, unspecified; Y99.9 Unspecified external cause status

== ENCOUNTER → 2021-03-01 | Outpatient (CLI) | payer MEDICARE ==
--- NOTE | 2021-03-01 13:26 | REP ---
INDICATION: LT ANKLE OA W/ PAIN. COMPARISON: Radiographs 02/08/2021. TECHNIQUE: Multiple sequences are obtained in the axial, coronal and sagittal planes. FINDINGS: The Achilles, anterior tibial, posterior tibial, flexor hallucis longus, and flexor digitorum longus tendons are all intact without significant tenosynovitis. There are findings compatible with a longitudinal split tear of the peroneus brevis tendon at the level of the distal end of the fibula. There is thickening and ill-defined signal involving the peroneus longus tendon compatible with tendinitis. The anterior and posterior talofibular, calcaneofibular and deltoid ligaments appear intact. Plantar tendon appears intact. There is no plantar fasciitis. Sinus tarsi demonstrates edematous signal diffusely with moderate fluid. 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 No ganglion cyst is seen. Mild fluid is seen surrounding the talus. There is moderate diffuse chondromalacia at the tibiotalar joint. There is mild marrow edema in the posterior aspect of the lateral malleolus. There is minor marrow edema in the tip of the medial malleolus. Small grade 1 osteochondral lesions are seen at the medial and lateral talar domes. There appears to be scattered arthritic change at the tarsal/metatarsal joints of a cyia-lb-ksfyuwwu degree with subcortical cystic change and marrow edema in the middle and lateral cuneiform bones and the base of 2nd and 3rd metatarsals. There is mild to moderate diffuse subcutaneous edema. IMPRESSION: Longitudinal split tear of the peroneus brevis tendon at the level of the distal fibula. There is tendinitis of the peroneus longus tendon. There is associated marrow edema in the posterior aspect of the lateral malleolus. 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 Moderate diffuse chondromalacia at the tibiotalar joint. There appear to be small grade 1 osteochondral lesions at the medial and lateral talar domes. Arthritic changes noted at the tarsal/metatarsal joints. There is mild to moderate diffuse subcutaneous edema. <Electronically signed by Brody Carrillo > 03/01/21 [id number]
== END ==
LOC: M RAD 11:15
PROVIDERS: ATTEND Internal Medicine Rheumatology
DX: M06.9 Rheumatoid arthritis, unspecified (principal); M66.88 Spontaneous rupture of other tendons, other sites; M94.272 Chondromalacia, left ankle and joints of left foot; M76.72 Peroneal tendinitis, left leg

== ENCOUNTER → 2021-03-07 | Outpatient (CLI) | payer MEDICARE ==
[2021-03-07 06:58] LABS: BASO % 0.4 % (0.0-1.0); EOS # 0.1 10^3/uL (0.0-0.5); EOS % 1.8 % (0.0-3.0); HEMATOCRIT 41.5 % (36.0-47.0); LYMPH # 0.5 10^3/uL (1.5-5.0); LYMPH % 17.9 % (24.0-44.0); MEAN CORPUSCULAR HEMOGLOBIN 34.9 pg (27.0-33.0); MEAN CORPUSCULAR HGB CONC 33.7 g/dl (32.0-36.5); MEAN CORPUSCULAR VOLUME 103.5 fl (80.0-96.0); MONO # 0.4 10^3/uL (0.0-0.8); MONO % 13.6 % (2.0-8.0); NEUTROPHILS # 1.8 10^3/uL (1.5-8.5); NEUTROPHILS % 64.8 % (36.0-66.0); PLATELET COUNT, AUTOMATED 161 10^3/uL (150-450); RED BLOOD COUNT 4.01 10^6/uL (4.00-5.40); WHITE BLOOD COUNT 2.7 10^3/uL (4.0-10.0)
[2021-03-07 07:14] LABS: ALBUMIN 3.2 GM/DL (3.2-5.2); ALT/SGPT 28 U/L (12-78); BILIRUBIN,TOTAL 0.5 MG/DL (0.2-1.0); BLOOD UREA NITROGEN 13 MG/DL (7-18); CALCIUM LEVEL 8.4 MG/DL (8.5-10.1); CARBON DIOXIDE LEVEL 33 MEQ/L (21-32); CHLORIDE LEVEL 106 MEQ/L (98-107); CREATININE FOR GFR 0.86 MG/DL (0.55-1.30); GLOMERULAR FILTRATION RATE > 60.0 (>51); GLUCOSE, FASTING 102 MG/DL (70-100); MAGNESIUM LEVEL 1.7 MG/DL (1.8-2.4); POTASSIUM SERUM 3.6 MEQ/L (3.5-5.1); SODIUM LEVEL 143 MEQ/L (136-145); TRIGLYCERIDES LEVEL 101 MG/DL (<150)
== END ==
LOC: M LAB 06:33
PROVIDERS: ATTEND Nurse Practitioner Acute Care
DX: Z94.1 Heart transplant status (principal); D84.9 Immunodeficiency, unspecified; Z79.899 Other long term (current) drug therapy

== ENCOUNTER → 2021-03-08 | Outpatient (CLI) | payer MEDICARE ==
--- NOTE | 2021-03-08 14:55 | RADONC ---
Radiation Oncology Hx/FUP Radiation Oncology Hx/FUP Date of Service: Mar 08, 2021 Pt Identifier Tom Hagan is a 55 year old female with a history of OHT (2018 @ [facility]) on chronic immunosuppression seen for a followup visit today at the department of radiation oncology for a history of ht breast cancer [id number] ER/CA+ HER2- s/p mastectomy and ALND, adjuvant chemotherapy and PMRT 50.4 Gy in 28 fractions completed 03/14/20. She continues on exemestane. She has CTCAE grade 3 lymphedema of the RUE and chest she is s/p vascular bypass surgery at [facility] in Summer 2020 to ameliorate this complication of therapy. Diagnosis/Treatment History Oncologic History 04/24/19 Mammogram and US with right subareolar lesion 05/11/19 Biopsy showing ILC grade 1 ER/CA+ HER2- 05/27/19 MRI negative for regional disease 06/04/19 Axillary US with no pathologically enlarged LN 09/11/19 Right mastectomy ([facility], Kelsie) [id number] 11/09 LN+ SIDNEY+ Grade 1 ILC October-December 2020 TC chemo x 4 cycles @ [facility] 02/02/20-03/14/20 PMRT 50.4 Gy in 28 fractions with VMAT 07/13/20 Assessed with CTCAE grade 3 lymphedema, this was present starting in Summer 2019 post ALND, gradually has worsened since RT Summer 2020 vascular surgery @ [facility] (autologous LN transfer? v bypass) for lymphedema Survivorship: Test Due Next Last result Notes TSH, T4* 6m post-tx, then q1y Per rheumatology Carotid US* q10 y post-tx [address] Hardwick @ [facility] Smoking cessation Assess annually if applicable N/A Quit Screening CT chest q1y if eligible per USPSTF N/A Mammograms Min q1y, if breast conservation March negative CBC,CMP, Lipids q1y Per cardiology DEXA q2y if on AI Per medical oncology Med onc is Dr. Aparicio @ [facility] Interval History Tom reports she has palpated a small nodule in the left axilla. It is tender to touch, she feels it has diminished somewhat in the last 2 weeks. She has a pending diagnostic mammo/US on order from her medical oncologist. She notes no recent vaccinations in the left arm. No recent infections. No left breast lesions on self exam. She has noted some improvement of her RUE and chest wall lymphedema since her procedure. Still has some end of day soreness, but not as bad as previously. Appetite and weight stable. Current Therapy Exemestane Stage Right breast cancer [id number] ER/CA+ HER2- ILC Grade 1 Stage IB Social History: Former smoker 15 pack years Former drinker Allergies / Meds Allergies: Coded Allergies: Sulfa (Sulfonamide Antibiotics) (Verified Allergy, Intermediate, RASH AND HIVES, 07/27/20) vancomycin (Verified Adverse Reaction, Intermediate, rash on chest, head felt hot, 07/27/20) morphine (Verified Adverse Reaction, Mild, lethargy, 07/27/20) NSAIDS (Non-Steroidal Anti-Inflamma (Verified Adverse Reaction, Unknown, states cant have due to heart transplant, 11/12/20) pseudoephedrine (Unverified Adverse Reaction, Unknown, CONTRAINDICATION, 07/27/20) CONTRAINDICATION Home Meds Active Scripts Prednisone (Prednisone) 20 Mg Tablet, 20 MG PO ASDIRECTED, #20 TAB 3 po day 1-3; 2 po day 4-7; 1 po day 8-10 Prov:Venessa Turk MD 10/29/20 Albuterol Sulfate (Proair Respiclick) 90 Mcg Aer.pow.ba, 2 PUFF INH Q4-6HP PRN for shortness of breath, #1 INHALER 3 Refills Prov:MILTON STOLL MD 05/11/20 Albuterol Sulfate (Albuterol Sulfate) 1.25 Mg/3 Ml Vial.neb, 1 VIAL NEB Q4-6HP PRN for wheezing for 10 Days, #150 ML 3 Refills Prov:MILTON STOLL MD 05/11/20 Acetaminophen (Acetaminophen) 325 Mg Tablet, 650 MG PO Q6HP PRN for PAIN / FEVER for 30 Days, #30 TAB Prov:Josefina Lua [place] 07/01/19 Reported Medications Methotrexate Sodium (Methotrexate) 2.5 Mg Tablet, 10 MG PO 1XWK DOES ON Thursdays07/23/20 Folic Acid (Folic Acid) 1 Mg Tablet, 1 MG PO DAILY 07/23/20 Metoprolol Succinate (Metoprolol Succinate) 25 Mg Tab.er.24h, 12.5 MG PO DAILY 07/23/20 Exemestane (Exemestane) 25 Mg Tablet, 25 MG PO DAILY 07/23/20 Hydroxychloroquine Sulfate (Hydroxychloroquine Sulfate) 200 Mg Tablet, 1 TAB PO BID 07/23/20 Prednisone (Prednisone) 5 Mg Tablet, 7 MG PO DAILY for 30 Days, #30 TAB 07/23/20 Oxycodone Hcl (Oxycodone HCl) 15 Mg Tablet, 5 MG PO QIDP PRN for pain MDD 4 Tablet(s) for 30 Days, #120 TAB 12/26/19 Ipratropium/Albuterol Sulfate (Iprat-Albut 0.5-3(2.5) mg/3 ml) 3 Ml Ampul.neb, 3 ML NEB Q6HP PRN for SHORTNESS OF BREATH, DWAYNE 10/05/19 Calcium Carbonate/Vitamin D3 (Calcium 1,000 + D3 Caplet) 1 Each Tablet, 1 TAB PO BID, TAB 10/05/19 Pantoprazole Sodium (Pantoprazole Sodium) 40 Mg Tablet.dr, 40 MG PO DAILY, TAB 06/30/19 Tacrolimus (Tacrolimus) 1 Mg Capsule, 2 MG PO QAM, CAP 06/30/19 Multivitamins (Thera M Plus Tablet) 1 Each Tablet, 1 TAB PO DAILY, TAB 06/30/19 Cyanocobalamin (Vitamin B-12) (Vitamin B-12) 1,000 Mcg Tablet, 1000 MCG PO SAMMY Y, TAB 06/30/19 Torsemide (Torsemide) 20 Mg Tablet, 10 MG PO DAILY, TAB 06/30/19 Magnesium Oxide (Magnesium Oxide) 400 Mg Tablet, 400 MG PO BID, TAB 06/30/19 Levothyroxine Sodium (LEVOTHYROXINE SODIUM) 75 Mcg Tablet, 75 MCG PO DAILY, TAB 06/30/19 Venlafaxine HCl (Venlafaxine HCl ER) 75 Mg Cap.er.24h, 75 MG PO DAILY 06/30/19 Trazodone HCl (Trazodone HCl) 100 Mg Tablet, 200 MG PO QHS, TAB 06/30/19 Losartan Potassium (Losartan Potassium) 50 Mg Tablet, 50 MG PO QHS 06/30/19 Potassium Chloride (Klor-Con M20) 20 Meq Tab.er.prt, 20 MEQ PO BID TAKES AT NOON/1800 3/3/20 Alprazolam (Alprazolam) 0.5 Mg Tablet, 0.5 MG PO BIDP PRN for ANXIETY 04/03/19 Amlodipine Besylate (Norvasc) 10 Mg Tab, 10 MG PO DAILY 08/01/18 Pravastatin Sodium (Pravastatin Sodium) 40 Mg Tab, 40 MG PO QHS 08/01/18 Aspirin (Aspir 81) 81 Mg Tab, 81 MG PO DAILY 08/01/18 Budesonide/Formoterol (Symbicort 160-4.5 Mcg Inhaler) 60 Puff/Inhaler Aers, 2 PUFF INH BID, INHALER 07/12/17 Review of Systems Review of Systems Constitutional: Denies: Fatigue, Weight Loss Eyes: Denies: Pain HEENT: Denies: Head Aches Skin: Denies: Rash Breast: Reports: New Breast Lumps / Masses; Denies: Breast Skin Changes, Breast Pain or Tenderness Pulmonary: Denies: Dyspnea, Cough Cardiovascular: Denies: Chest Pain Gastrointestinal: Denies: Abdominal Pain Neurological: Reports: Numbness (Right chest wall is numb); Denies: Weakness Psych: Reports: Mood Normal Physical Examination Vital Signs Wt 200 lbs T 98.3 P 112 RR 18 BP 123/74 O2 96% Pain 0 Fatigue 0 General Exam: Alert, Cooperative, No Acute Distress Eye Exam: PERRLA, EOMI ENT EXAM: Atraumatic Neck Exam: Negative: Lymphadenopathy Chest Exam: Clear to auscultation Heart Exam: Rate Normal Breast Exam: Lumps or Masses (In the anterior left axilla there is a 0.5 cm tender, rubbery nodule with is mobile. No additional left axilla lesions. No left breast lesions. There are no lesions apparent on the right chest wall or on palpation of the axilla. There is lymphedema in the RUE, but not in the chest wall. There is fibrosis of the subcutaneous tissues in the right chest c/w RT changes.) Abdomen Exam: Soft Skin Exam: Nl turgor and temperature Neuro Exam: Normal Gait, Normal Speech, Cranial Nerves 3-12 NL Psych Exam: Mental status NL Diagnostic and Laboratory Diagnostic Review Radiologic images, relevant labs and pathology reports were personally reviewed and discussed with Ms. Hagan. Assessment and Plan Impression Assessment Ms. Hagan is a 55 year old female with a history of OHT (2019 @ [facility]) on chronic immunosuppression seen for a followup visit today at the department of radiation oncology for a history of ht breast cancer [id number] ER/CA+ HER2- s/p mastectomy and ALND, adjuvant chemotherapy and PMRT 50.4 Gy in 28 fractions completed 03/14/20. She continues on exemestane. She has CTCAE grade 3 lymphedema of the RUE and chest she is s/p vascular bypass surgery at [facility] in Summer 2020 to ameliorate this complication of therapy. She has what feels like a small reactive LN in the left axilla. The tenderness and soft texture and possible spontaneous decrease in size I think support a benign etiology, however I think this warrants a diagnostic left mammogram and US, her medical oncologist @ [facility] has ordered one, but per patient it has not been scheduled. I would be happy to facilitate the study if she has difficulty in getting it performed. She is due for mammography in March 2021 anyhow, so this diagnostic study could serve that function as well. Her lymphedema seems to have improved, it is now CTCAE grade 2 and less painful for her. She has no additional survivorship items outstanding, she is well-followed for her cancer and other medical problems. I will see her back in 6 months. Performance Status ECOG 1 Plan Follow up in 6 months Patient to call if she has further difficulty in getting left diagnostic mammogram/US Ms. Hagan was encouraged to call with questions or concerns in the interim period. Billing Statement Total time of [25] minutes was spent preparing for the visit [2], obtaining HPI [5], examining the patient [4], reviewing diagnostic tests [1], discussing management options [7], coordinating care [1], and writing this note [5]. MILTON STOLL MD Mar 08, 2021 14:55
== END ==
LOC: M ONCR 13:40
PROVIDERS: ATTEND General Practice
DX: C50.111 Malignant neoplasm of central portion of right female breast (principal); Z92.3 Personal history of irradiation; Z92.21 Personal history of antineoplastic chemotherapy; Z87.891 Personal history of nicotine dependence; Z88.2 Allergy status to sulfonamides; Z88.6 Allergy status to analgesic agent; Z79.899 Other long term (current) drug therapy

== ENCOUNTER 2021-03-29 23:10 | Inpatient (IN) | payer MEDICARE ==
[~2021-03-29] VITALS: Ht 170.2 cm; Wt 88.0 kg
--- OUTSIDE RECORDS SUMMARY | 2021-03-29 23:20 | CCD ---
Continuity of Care Document (CCD) Created on: 03/06/2021 Tom Hagan External Reference #: [id number] : [id number] Sex: Female Author Author Tom CARVAJAL MD Organization Unknown Address [id number] [place] [address], [place] [address] Phone [phone] Care Team Providers Care Laboratory Monitor Name Role Phone Sydney Johnson M.D. [facility] [phone] Mary Lou Huitron R.P.A. AUTM [phone] Tyra Costa M.D. [facility] [phone] Dalton Payne M.D. [facility] [phone] E Pre Op AUTM [phone] AUTM Unavailable Ivory Nunes M.D. [facility] [phone] Problems Active Problems Provider Date Infective otitis externa Jono Renee MD Onset: 2013 Postmastoidectomy complication Jono Renee MD Onset: 04/30/2013 Gallbladder calculus with acute cholecystitis and no o bstruction Levi Car M.D. Onset: 08/05/2013 Chronic otitis externa Trav Dela Cruz MD Onset: 11/09/2013 Central perforation of tympanic membrane Trav Dela Cruz MD Onset: 11/09/2013 Foreign body in ear Trav Dela Cruz MD Onset: 11/09/2013 Difficulty speaking Trav Deal Cruz MD Onset: 02/15/2014 Chronic laryngitis Trav Dela Cruz MD Onset: 02/15/2014 Otorrhea Trav Dela Cruz MD Onset: 02/15/2014 Social History Type Date Description Comments Sex Unknown ETOH Use 5 A Week Recreational Drug Use Denies Drug Use Tobacco Use Start: 04/29/02 End: 04/29/12 Patient is a forme r smoker 1 PPD Smoking Status Reviewed: 02/15/21 Patient is a former smoker 1 PPD Allergies and adverse reactions Active Allergies Criticality Reaction | Severity Comments Date Sulfa Unable to assess criticality HIVES 04/24/2013 Morphine Unable to assess criticality CONFUSION 09/02/2019 Medications Active Medications SIG Qnty Indications Ordering Provide r Date Symbicort 160-4.5mcg/Act Aerosol Inhale Two Puffs By Mouth Twice A Day Unknown 0 Metoprolol Succinate ER 25mg Tablets ER 24HR Take One Half Tablet By Mouth Every Day No Crushing Or Chewing Unknown Folic Acid 1mg Tablets Take One Tablet By Mouth Every Day Unknown Sirolimus 0.5mg Tablets 4 tab s po qd Unknown Multivitamin Tablets 1 by mouth every day Unknown Vitamin B12 1000mcg Tablets ER 1 by mouth every day Unknown Hydroxychloroquine Sulfate 200mg T ablets 2 tabs po qd Unknown Magnesium Oxide 400mg Tablets 1 tab po qd Unknown Aspirin [address] 1 by mouth every day Unknown Tacrolimus 1mg Capsules 2 caps by mouth qam and 3 caps qhs Unknown Cyclobenzaprine HCL 5mg Tablets Take One Tablet By Mouth Twice A Day as Needed For Muscle Spasms Unknown Albuterol Sulfate 1.25mg/3ML Nebul izer Use 1 Vial Via Nebulizer Every 4 To 6 Hours as Needed For Wheezing Unknown Methotrexate 2.5mg Tablets 3 qd [facility] Potassium Chloride Lidia ER 20Meq Tablets ER Take One Tablet By Mouth Every Day Unknow n Alprazolam 0.5mg Tablets Take 1Tab.By Mouth Twice A Day as Needed For Anxiety Insomnia Max 2Tabs/Day Unknown Losartan Potassium 50mg Tablets Take 1 Tablet By Mouth Once Daily Unknown Exemestane 25mg Tablets Take 1 Tablet 25MG Total By Mouth Daily Unknown Venlafaxine HCL ER 75mg Caps ER 24HR 1 qd Unknown Torsemide 20mg Tablets 1 qd Unknown Pravastatin Sodium 40mg Tablets Take One Tablet By Mouth Every Day With Dinner Unknown Pantoprazole Sodium 40mg Tablets D R Take 1 Tablet By Mouth Daily Swallow Whole No Chewing/Breaking/Crushing Unknown Levothyroxine Sodium 75mcg Tablets Take One Tablet By Mouth Every Day Before Breakfast U nknown Amlodipine Besylate 10mg Tablets 1 tab po qd Unknown Trazodone HCL 100mg Tablets Take Two Tablets By Mouth Nightly AT Bedtime Unknown Immunizations Description No Information Available Vital Signs Date Vital Result Comment 02/15/2021 8:19am Body Temperature 98.3 F Height 67 inches 5'7" Weight 200.50 lb BMI (Body Mass Index) 31.4 kg/m2 [place] Body Weight 135 lb Weight 90.947 kg BSA (Body Surface Area) 2.02 m2 07/04/2020 11:52am BP Systolic 132 mmHg BP Diastolic 80 mmHg Height 67 inches 5'7" Weight 208.25 lb BMI (Body Mass Index) 32.6 kg/m2 [place] Body Weight 135 lb Weight 94.462 kg BSA (Body Surface Area) 2.06 m2 Results Description No Information Available Procedures Date Code Description Status 03/03/2021 72238 Office/Outpatient Established Mo d MDM 30-39 Min Completed 03/03/202157599 Inject/Drain Arthrocentesis Janel r Joint/Bursa/Ganglion Cyst Completed 02/15/2021 21324 Office/Outpatient New Low MDM 30 -44 Minutes Completed 09/18/2017 53834116 Mammogram Completed Medical Devices Description No Information Available Encounters Type Date Location Provider Dx Diagnosis Office Visit 03/03/2021 8:00a [facility] Memo Carvajal MD M11.262 Other chondrocalcinosis, left knee S83.222A Prph tear of medial meniscus , current injury, l knee, init Office Visit 02/15/2021 8:30a [facility] Memo Carvajal MD M11.262 Other chondrocalcinosis, left knee M25.572 Pain in left ankle and joint s of left foot Assessments Date Code Description Provider 03/03/2021 M11.262 Bilateral osteoarthritis of knee s Memo Carvajal MD 03/03/2021 S83.222A Tear of medial meniscus of knee Memo Carvajal MD 02/15/2021 M11.262 Bilateral osteoarthritis of knee s Memo Carvajal MD 02/15/2021 M25.572 Pain of left ankle joint Memo trujillo MD Plan of Treatment Future Appointment(s):* 06/05/2021 8:00 am - Memo Car[facility]ajal MD at [facility] 03/03/2021 - Memo Carvajal MD* M11.262 Bilateral osteoarthritis of knees * S83.222A Tear of medial meniscus of knee* Comments:* The patient demonstrates left knee medial meniscal tearing with degenerative changes noted. Based on the patient's examination it sounds as if the degenerative changes are the primary source of her pain. We did discuss interventions including a cortisone injection for conservative treatment versus a total knee arthroplasty given the degenerative change that she has particularly to the medial comp artment.Patient has opted for a cortisone injection knowing that this could delay any surgical intervention by 3 months for an arthroplasty procedure. She states that she has received cortisone or other injections since her transplant procedure without adverse effect.The risks and benefits of a knee cortisone injection were discussed with the patient. The patient verbally consented to the procedure. Medication expiration dates were reviewed. The left knee was cleansed with chlorhexidine. 1 mL of 80 mg Depo-Medrol with 5 mL of 0.5% bupivacaine was injected via the superiolateral approach. Topical anesthetic was utilized as available. The injection site was appropriately dressed. The patient was advised on instructions and appropriate literature was handed out as needed. They tolerated the procedure well with no known complications.See the patient for follow-up in 3 months time. She can contact the office in 6 weeks if she is not having any effect.I did advise the patient that if she is considering a total knee arthroplasty. I may refer her to [place] where she had her transplant surgery. * Follow up:* Follow-up 3 months. Contact the office in 6 weeks if no alleviation of symptoms Functional Status Description No Information Available Mental Status Description No Information Available Referrals Description No Information Available
--- OUTSIDE RECORDS SUMMARY | 2021-03-29 23:20 | CCD ---
Author Author [facility] Organization [facility] Address Unknown Phone Unavailable Care Team Providers Care Junior Web Designer Name Role Phone Ivory Nunes Unavailable PROBLEMS Type Condition ICD9-CM Code [id number] Code Onset Dates Condition S tatus W/U Status Risk SNOMED Code Notes Problem Major depressive disorder, single episode, unspecified F32.9 Active confirmed 29788492 Problem Unspecified atrial fibrillation I48.91 Active confi rmed 87604729 Problem Chronic obstructive pulmonary disease, unspecified J44.9 Active confirmed 88551045 Problem 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 Active confirmed 468745777 Problem Dilated cardiomyopathy I42.0 Active confirmed 686850396 Problem Vaginal bleeding N93.9 Active confirmed 289 124260 Problem Dyslipidemia E78.5 Active confirmed 6899233 07 Problem Seroma of breast N64.89 Active confirmed 297 159210 Problem Cardiomyopathy, unspecified I42.9 Active confirmed 45029383 Problem Malignant neoplasm of unspecified site of right female breast C50.911 Active confirmed 860738042 Problem Hypothyroidism, unspecified E03.9 Active confirmed 56391078 Problem Rheumatoid arthritis, unspecified M06.9 Active con firmed 30529911 Problem 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 0710 Active confirmed 138842476 Problem Hypothyroidism, unspecified type E03.9 Active conf irmed 57493839 Problem Iron overload due to repeated red blood cell transfusions E83.111 Active confirmed 012309101 Problem Acute gout of right foot, unspecified cause M10.9 Active confirmed 181123371 Problem Hypertensive heart disease with heart failure I11. 0 Active confirmed 14311818 Problem Heart transplant, orthotopic, status Z94.1 Act maddie confirmed 794335630 Problem Rheumatoid arthritis involvi ng multiple sites, unspecified whether rheumatoid factor present M06.9 Active confirmed 2870 31788 Problem Lymphedema of arm I89.0 Active confirmed 44 8966973 Problem Heart transplant recipient Z94.1 Active confirmed 449547381 Problem Primary osteoarthritis involving multiple joints M 89.49 Active confirmed 937992377 Problem BMI 45.0-49.9, adult Z68.42 Active confirmed 573580326 Problem shelter (current) use of systemic steroids Z79.5 2 Active confirmed 445195805616990 Problem Abnormal mammogram R92.8 Active confirmed 1 55225689 Problem Chronic gastrointestinal hemorrhage K92.2 Acti ve confirmed 50227256 Problem Rheumatoid arthritis involvi ng multiple sites with positive rheumatoid factor M05.79 Active confirmed 325345976 Problem Primary osteoarthritis of both knees M17.0 Act maddie confirmed 432030208 Problem Lymphedema I89.0 Active confirmed 42513816 Problem Medicare annual wellness visit, subsequent Z00.00 Active confirmed 976776152 ALLERGIES Allergen (clinical drug ingredient) Drug/Non Drug Allergy do cumented on EMR Reaction Allergy Type Onset Date Status morphine Morphine Sulfate(ND Code:[address]-77) goofy Drug A llergy Active Sudafed(ND Code:[address]-90) Unknown Drug Allergy Active Sulfacet Red blotches on skin Drug Allergy Ac tive ENCOUNTERS from 1965 to 2021-02-11 Encounter Location Date Provider Diagnosis [facility] Rheumatology [address] [place] [address] [place] [address] 13 Jan, 2021 Ivory Nunes Rheumatoid arthritis, unspec ified M06.9 IMMUNIZATIONS Vaccine Route Administration Date Status COVID-19 dose #1 given elsewhere Unspecified Unknown Jun 26, 2020 Administered Hepatitis A & B 1mL Twinrix IM Intramuscular Jan 07, 2018 Adm inistered Hepatitis A & B 1mL Twinrix IM Intramuscular September 18, 2017 Adm inistered Pneumococcal Adult 0.5mL Pneumovax 23 Unknown Jan 27 14 Administered TDAP 0.5mL (Boostrix) IM Intramuscular September 18, 2017 Administe red Pneumococcal 0.5mL Prevnar 13 IM Intramuscular May 13, 2015 A dministered COVID-19 dose #2 given elsewhere Unspecified Unknown Jun Administered Influenza 6mo & up Fluzone Unknown July 09, 2017 Admin istered Influenza 6mo & up Fluzone IM Intramuscular Jan 26, 2015 Admi nistered Influenza 6mo & up Fluzone IM Intramuscular Jan 12, 2014 Admi nistered SOCIAL HISTORY Tobacco Use: Social History Observation Description Date Details (start date - stop date) Former Smoker Sex Assigned At : Social History Observation Description Sex Assigned At Unknown Language: Question Answer Notes Languages spoken: Welsh Taoist: Question Answer Notes Taoist 21 Jain Sexual Hx: Question Answer Notes Had sex in the last 12 months (vaginal, oral, or anal)? Yes Have you ever had an STD? No Prevention Strategies discussed: Other with Men only Use protection? No Alcohol Screening: Question Answer Notes Did you have a drink containing alcohol in the past year? Ye s Points 3 Interpretation Positive How often did you have six or more drinks on one occas ion in the past year? Never (0 points) How many drinks did you have on a typica l day when you were drinking in the past year? 3 or 4 (1 point) How often did you have a drink containing alcohol in t he past year? Two to four times a month (2 points) BMI Care Goal Follow-Up Question Answer Notes Above Normal BMI Follow-Up Giving encouragement to exercise Tobacco Use: Question Answer Notes Are you a: former smoker How long has it been since you last smoked? 5-10 years REASON FOR REFERRAL No Information VITAL SIGNS No information MEDICATIONS Medication SIG (Take, Route, Frequency, Duration) Notes Start Da te End Date Status Famciclovir 500 MG 1 tablet Orally tid for 7 day(s) Oct Active Magnesium Oxide 400 MG 1 tablet with food Orally bid Active Torsemide 20 MG 1/2 tablet Orally Once a day Active amLODIPine Besylate 10 MG 1 tablet Orally Once a day Active Losartan Potassium 50 MG 1 tablet Orally Once a day Active Tacrolimus 1 MG 3 MG Orally Once a day Active Methotrexate Sodium 2.5 MG 4 tablets Orally Once weekly for 90 d ay(s) Jun, Active Folic Acid 1 MG 1 tablet Orally Once a day for 30 day(s) 0 8 Jun, 2020 Active Venlafaxine HCl ER 75 MG 1 capsule with food Orally Once a day Active Aspirin 81 MG 1 tablet Orally Once a day Active Multi For Her 1 1 tab Orally once daily Active traZODone HCl 100 mg 2 tablet at bedtime Orally Once a day Active Metoprolol Succinate ER 25 mg 1/2 tablet Oral Once a day Active Exemestane 25 MG 1 tablet with a meal Orally Once a day for 30 day(s) Active Calcium 1000 + D 1000-800 MG-UNIT 1 tablet with a meal Orally twice d aily Active Acetaminophen 325 MG 2 tablets as needed Orally every 6 hrs Active Vitamin B12 1000 MCG 1 tablet Orally Once a day Active Hydroxychloroquine Sulfate 200 MG 1 tablet Orally bid for 90 day s Dec, Active Zofran 4 MG 1 tablet Orally Once a day Active predniSONE 5 MG 1.5 tablets Orally Once a day 06/20/20 taking 7.5 mg QD Dec, Active Pravastatin Sodium 40 MG 1 tablet Orally Once a day Active Senna Concentrate 8.6 MG 2 tablets Orally Once a day Active Fludrocortisone Acetate 0.1 MG 1 tablet Orally Daily Active ALPRAZolam 0.5 MG 1 tablet Orally Twice a day as needed Active Klor-Con M20 20 MEQ 1 tablet with food Orally twice daily Active Cefdinir 300 MG 1 cap Orally bid for 10 day(s) Mar, 9 Active Annie-Bid Probiotic 1 Two tablets with meals Orally three times daily Active Ipratropium-Albuterol 0.5-2.5 (3) MG/3ML 3 ml as needed Inha lation every 6 hrs as needed Active Levothyroxine Sodium 75 MCG 1 tablet on an empty stoma ch in the morning Orally Once a day Feb, Active Protonix 40 MG 1 tablet Orally Once a day Active MiraLax 8.5 8.5 grams mixed with [address] or juice as needed Orally Once a day Active Symbicort 160-4.5 MCG/ACT 2 puffs Inhalation bid for 30 Active Ciprodex 0.3-0.1 % 4 drops into affected ear Otic Twice a day fo r 7 day(s) Jun, Active Cyclobenzaprine HCl 5 MG 1 tablet as needed Orally Three times a day Active Lasix 20 MG 1/2 tablet Orally Once a day Active Fluconazole 200 MG 1 tablet Orally Once a day Active CellCept 250 MG as directed Orally bid Active Bisoprolol Fumarate 5 MG 1 tablet Orally Once a day Active PROCEDURES No Information RESULTS No Results REASON FOR VISIT X-ray results MEDICAL (GENERAL) HISTORY Type Description Date Medical History orthotropic heart transplant [facility] 05/17; dobutamine echo 03/18: EF 59%, normal mitral valve (NO SBE prophylaxis needed unless MVR is noted) Medical History insomnia Medical History anxiety Medical History hypertension Medical History Hypothyroidism, hx of Medical History systolic CHF - follows with Dr Kelsey--echo 03/12 EF 22%; now s/p orthotropic heart transplant; echo 03/17: EF 58%, biatrial enlargement; dobutamine echo 03/18: EF 59%, normal valves Medical History AFib - follows with Dr Elpidio camarillo; anticoagulation monitored/dose by [facility] Medical History depression Medical History hypertension Medical History hypomagnesemia Medical History pacemaker - follows with Dr Kelsey Medical History rheumatoid arthritis - follows with Dr Jenniffer partida Medical History COPD Medical History tobacco use- history of quit 2013 Medical History Previous LVAD (Left Ventricu lar Assist Device) for nonischemic cardiomyopathy and systolic heart failure - follows with LVAD team in [place]; 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, received orthotropic heart transplant, EF up to 58% (03/17) Medical History anemia, s/p 2 units transfus ion-- 05/13 at [facility]-- had EGD/push enteroscopy, colonoscopy, capsule endo-- no bleeding source found; admitted UGI bleed 08/13, EGD showed gastric erosions, had colon npolyps that were not removed (high INR) Medical History bariatric surgery--sleeve gastrectomy [facility] 03/15/17 Medical History iron overload (from multiple blood transfusions, hemochromatoses w/u was neg) Medical History lobular carcinoma rt breast 05/18, rt modified radical mastectomy; lymphedema rt arm; s/p chemo and rad tx Medical History lymphadema in right arm Surgical History ganglion cyst, left ankle Surgical History C section Surgical History tonsillectomy Surgical History Defibrillator pacemaker Surgical History ear x3 Surgical History Gallbladder Removal 06/2013 Surgical History LVAD 03-12 Surgical History EGD/push enteroscopy, colono scopy, capsule endo-- no bleeding source found 05/13 Surgical History hysterectomy 06/2016 Surgical History ERGD/colonoscopy [facility]: adm itted UGI bleed 08/13, EGD showed gastric erosions, colonscopy: had colon npolyps that were not removed (high INR 08/13 Surgical History gastric sleeve [facility]-- lost 12 0 # 03/15 Surgical History heart transplant 05/27/18 Surgical History R mastectomy 08/2019 Hospitalization History CHF 04/2013 Hospitalization History [facility] Gallbladder removed - Dr Car 06/2013 Hospitalization History bleeding-hysterectomy - [place] 2016 Hospitalization History Influenza 06/2016 Hospitalization History GI bleed--[place] 07/2016 Hospitalization History COPD/HTN - [place] 05/2017 Hospitalization History C Diff, Norovirus 2018 Hospitalization History [facility]/[place] influenza Hospitalization History [place] cellulitis left arm 10/2020 Goals Section No Information Health Concerns No Information MEDICAL EQUIPMENT No Information MENTAL STATUS No Information FUNCTIONAL STATUS No Information ASSESSMENTS Encounter Date Diagnosis Assessment Notes Treatment Notes Treatm ent Clinical Notes Jan, Rheumatoid arthritis, unspecified (ICD-10 - M06. 9) PLAN OF TREATMENT Medication Medication Name Sig Start Date Stop Date Folic Acid 1 MG 1 tablet Orally Once a day for 30 day(s) Jun, Treatment Notes Test Name Order Date [facility] MRI Ankle WITHOUT CONTRAST 2021-02-08 Next Appt Details Provider Name:Dalton Payne, 2021-01 10:00:00 AM, [address] , , [place], [address], Provider Name:Ivory Nunes, 09:30:00 AM, [address] [facility], , [place], [address], Provider Name:Paris Cool, 20 20-05-06 08:00:00 AM, [address] [facility], , [place], [address], Insurance Providers Payer Name Payer Address Payer Phone Insured Name Patient Relati onship to Insured Coverage Start Date Coverage End Date [employer] [facility] CLAIM DIV [address] [facility] [id number] LESVIA MURRAY self MEDICARE Part A and B [address] [facility] [id number] [phone] LESVIA MURRAY self
--- OUTSIDE RECORDS SUMMARY | 2021-03-29 23:20 | CCD ---
Author Author [facility] Organization [facility] Address Unknown Phone Unavailable Care Team Providers Care Softlines Supervisor Name Role Phone Dalton Payne Unavailable PROBLEMS Type Condition ICD9-CM Code [id number] Code Onset Dates Condition S tatus W/U Status Risk SNOMED Code Notes Problem Major depressive disorder, single episode, unspecified F32.9 Active confirmed 90869521 Problem Unspecified atrial fibrillation I48.91 Active confi rmed 64935105 Problem Chronic obstructive pulmonary disease, unspecified J44.9 Active confirmed 72594060 Problem 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 Active confirmed 170119468 Problem Dilated cardiomyopathy I42.0 Active confirmed 854305024 Problem Vaginal bleeding N93.9 Active confirmed 289 745069 Problem Dyslipidemia E78.5 Active confirmed 4654854 07 Problem Seroma of breast N64.89 Active confirmed 297 301419 Problem Cardiomyopathy, unspecified I42.9 Active confirmed 99595892 Problem Malignant neoplasm of unspecified site of right female breast C50.911 Active confirmed 814163731 Problem Hypothyroidism, unspecified E03.9 Active confirmed 64260413 Problem Rheumatoid arthritis, unspecified M06.9 Active con firmed 21603541 Problem 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 0710 Active confirmed 842738540 Problem Hypothyroidism, unspecified type E03.9 Active conf irmed 95056098 Problem Iron overload due to repeated red blood cell transfusions E83.111 Active confirmed 138713402 Problem Acute gout of right foot, unspecified cause M10.9 Active confirmed 260917211 Problem Hypertensive heart disease with heart failure I11. 0 Active confirmed 56860745 Problem Heart transplant, orthotopic, status Z94.1 Act maddie confirmed 460575253 Problem Rheumatoid arthritis involvi ng multiple sites, unspecified whether rheumatoid factor present M06.9 Active confirmed 2870 56898 Problem Lymphedema of arm I89.0 Active confirmed 44 0079299 Problem Heart transplant recipient Z94.1 Active confirmed 283365528 Problem Primary osteoarthritis involving multiple joints M 89.49 Active confirmed 434204920 Problem BMI 45.0-49.9, adult Z68.42 Active confirmed 068191672 Problem half-way (current) use of systemic steroids Z79.5 2 Active confirmed 971814070018052 Problem Abnormal mammogram R92.8 Active confirmed 1 33006067 Problem Chronic gastrointestinal hemorrhage K92.2 Acti ve confirmed 31385854 Problem Rheumatoid arthritis involvi ng multiple sites with positive rheumatoid factor M05.79 Active confirmed 858419364 Problem Primary osteoarthritis of both knees M17.0 Act maddie confirmed 435468210 Problem Lymphedema I89.0 Active confirmed 22855693 Problem Medicare annual wellness visit, subsequent Z00.00 Active confirmed 962167825 ALLERGIES Allergen (clinical drug ingredient) Drug/Non Drug Allergy do cumented on EMR Reaction Allergy Type Onset Date Status morphine Morphine Sulfate(NDC Code:[address]-94) goofy Drug A llergy Active Sudafed(NDC Code:[address]-59) Unknown Drug Allergy Active Sulfacet Red blotches on skin Drug Allergy Ac tive ENCOUNTERS from 1965 to 2021-03-02 Encounter Location Date Provider Diagnosis [place] [id number] [place] [id number] Jan, Dalton Payne Heart transplant, orthotopic, status Z94 .1 ; Cardiomyopathy, unspecified I42.9 ; Hypertensive heart disease with heart failure I11.0 and Unspecified atrial fibrillation I48.91 IMMUNIZATIONS Vaccine Route Administration Date Status COVID-19 [...] Unknown Language: Question Answer Notes Languages spoken: Belarusian Jewish: Question Answer Notes Jewish 21 Restorationism Sexual Hx: Question Answer Notes Had sex [...] REASON FOR REFERRAL No Information VITAL SIGNS Weight 202 lbs Jan, Height 65.75 in Jan, BMI 32.85 kg/m2 Jan, Heart Rate 128 /min Jan, Respiratory Rate 18 /min Jan, Temperature 98.2 degrees Fahrenheit Jan, Oximetry 98 Jan, Blood pressure systolic 110 mm Hg Jan, Blood pressure diastolic 60 mm Hg Jan, MEDICATIONS Medication SIG (Take, Route, Frequency, Duration) Notes Start Da te End Date Status Calcium 1000 + D 1000-800 MG-UNIT 1 tablet with a meal Orally twice d aily Active Symbicort 160-4.5 MCG/ACT 2 puffs Inhalation bid for 30 Active Torsemide 20 MG 1/2 tablet Orally Once a day Active Ipratropium-Albuterol 0.5-2.5 (3) MG/3ML 3 ml as needed Inha lation every 6 hrs as needed Active Senna Concentrate 8.6 MG 2 tablets Orally Once a day Active CellCept 250 MG as directed Orally bid Not-Taking Metoprolol Succinate ER 25 mg 1/2 tablet Oral Once a day Active MiraLax 8.5 8.5 grams mixed with [address] or juice as needed Orally Once a day Active Tacrolimus 1 MG 3 MG Orally Once a day Active Ciprodex 0.3-0.1 % 4 drops into affected ear Otic Twice a day fo r 7 day(s) Jun, Not-Taking Vitamin B12 1000 MCG 1 tablet Orally Once a day Active Bisoprolol Fumarate 5 MG 1 tablet Orally Once a day Active Exemestane 25 MG 1 tablet with a meal Orally Once a day for 30 day(s) Active Venlafaxine HCl ER 75 MG 1 capsule with food Orally Once a day Active Cefdinir 300 MG 1 cap Orally bid for 10 day(s) Mar, Not-Taking predniSONE 5 MG 1.5 tablets Orally Once a day 06/20/20 taking 7.5 mg QD Dec, Not-Taking Fluconazole 200 MG 1 tablet Orally Once a day Active traZODone HCl 100 mg 2 tablet at bedtime Orally Once a day Active Fludrocortisone Acetate 0.1 MG 1 tablet Orally Daily Not-Taking Lasix 20 MG 1/2 tablet Orally Once a day Active Klor-Con M20 20 MEQ 1 tablet with food Orally twice daily Active Levothyroxine Sodium 75 MCG 1 tablet on an empty stoma ch in the morning Orally Once a day Feb, Active Zofran 4 MG 1 tablet Orally Once a day Active Methotrexate Sodium 2.5 MG 4 tablets Orally Once weekly for 90 d ay(s) Jun, Active ALPRAZolam 0.5 MG 1 tablet Orally Twice a day as needed Active Folic Acid 1 MG 1 tablet Orally Once a day for 30 day(s) 0 Jun, Active Aspirin 81 MG 1 tablet Orally Once a day Active Hydroxychloroquine Sulfate 200 MG 1 tablet Orally bid for 90 day s Dec, Active Famciclovir 500 MG 1 tablet Orally tid for 7 day(s) Oct Active Cyclobenzaprine HCl 5 MG 1 tablet as needed Orally Three times a day Not-Taking Pravastatin Sodium 40 MG 1 tablet Orally Once a day Active amLODIPine Besylate 10 MG 1 tablet Orally Once a day Active Losartan Potassium 50 MG 1 tablet Orally Once a day Active Protonix 40 MG 1 tablet Orally Once a day Active Magnesium Oxide 400 MG 1 tablet with food Orally bid Active Annie-Bid Probiotic 1 Two tablets with meals Orally three times daily Active Multi For Her 1 1 tab Orally once daily Active Acetaminophen 325 MG 2 tablets as needed Orally every 6 hrs Active PROCEDURES No Information RESULTS No Results REASON FOR VISIT 03 months follow up/ okay by shereen MEDICAL (GENERAL) HISTORY Type Description Date Medical [...] failure - follows with LVAD team in [place]; 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, [...] s/p chemo and rad tx Medical History lymphedema in right arm Surgical History ganglion cyst, left ankle Surgical History C section Surgical History tonsillectomy Surgical History Defibrillator pacemaker Surgical History ear x3 Surgical History Gallbladder Removal 06/2013 Surgical History LVAD - Surgical History EGD/push enteroscopy, colono scopy, capsule endo-- no bleeding source found 05/13 Surgical History hysterectomy 06/2016 Surgical History ERGD/colonoscopy [facility]: adm itted UGI bleed 08/13, EGD showed gastric erosions, colonscopy: had colon npolyps that were not removed (high INR 08/13 Surgical History gastric sleeve [facility]-- lost 12 0 # 03/15 Surgical History heart transplant 05/27/18 Surgical History R mastectomy 08/2019 Hospitalization History CHF 04/2013 Hospitalization History [facility] Gallbladder removed - Dr Car 06/2013 Hospitalization History bleeding-hysterectomy - [place] 2016 Hospitalization History Influenza 06/2016 Hospitalization History GI bleed--[place] 07/2016 Hospitalization History COPD/HTN - [place] 05/2017 Hospitalization History C Diff, Norovirus 2018 Hospitalization History [facility]/[place] influenza Hospitalization History [place] cellulitis left arm 10/2020 Goals Section No Information Health Concerns No Information MEDICAL EQUIPMENT No Information MENTAL STATUS No Information FUNCTIONAL STATUS No Information ASSESSMENTS Encounter Date Diagnosis Assessment Notes Treatment Notes Treatm ent Clinical Notes Jan, Heart transplant, orthotopic, status (ICD-10 - Z 94.1) reviewed notes from transplant team. restarting MTX, Plaquenil Jan, Cardiomyopathy, unspecified (ICD-10 - I42.9) Jan, Hypertensive heart disease with heart failure (I CD-10 - I11.0) Per JNC 8 guidelines, goal BP < 140/90 (150/90 if age >60), is meeting goal on current regimen. Advised heart-healthy diet, sodium restriction Jan, Unspecified atrial fibrillation (ICD-10 - I48.91 ) PLAN OF TREATMENT Treatment Notes Assessment Notes Clinical Notes Heart transplant, orthotopic, status rev iewed notes from transplant team. restarting MTX, Plaquenil Hypertensive heart disease with heart failure Per JNC 8 guidelines, goal BP < 140/90 (150/90 if age >60), is meeting goal on current regimen. Advised heart- healthy diet, sodium restriction Next Appt Details 6 Months Reason: Provider Name:Ivory Nunes, 09:30:00 AM, [address] [facility], , [place], [address], Provider Name:Paris Cool, 20-05-06 08:00:00 AM, [address] [facility], , [place], [address], Provider Name:Dalton Payne, 2021-08 08:30:00 AM, [address], , [place], [address], Insurance Providers Payer Name Payer Address Payer Phone Insured Name Patient Relati onship to Insured Coverage Start Date Coverage End Date [employer]IONS [facility] CLAIM DIV [address] [facility] [id number] LESVIA MURRAY MEDICARE Part A and B [address] [facility] [phone] LESVIA MURRAY
--- OUTSIDE RECORDS SUMMARY | 2021-03-29 23:20 | CCD ---
Continuity of Care Document (CCD) Created on: 02/16/2021 Tom Hagan External Reference #: [id number] : [id number] Sex: Female Author Author Tom CARVAJAL MD Organization Unknown Address [address] [place] [address], [place] [address] Phone [phone] Care Team Providers Care Litigation Legal Assistant Name Role Phone Sydney Johnson M.D. AUTM [phone] Mary Lou Huitron R.P.A. AUTM [phone] Tyra Costa M.D. AUTM [phone] Dalton Payne M.D. AUTM [phone] E Pre Op AUTM [phone] AUTM Unavailable Ivory Nunes M.D. AUTM [phone] Problems Active Problems Provider Date Infective otitis [...] Cruz MD Onset: 11/09/2013 Difficulty speaking Trav Dela Cruz MD Onset: 02/15/2014 Chronic laryngitis Trav [...] Wheezing Unknown Methotrexate 2.5mg Tablets 3 qd [facility] Rhe[facility]ology Clinic Potassium Chloride Lidia ER 20Meq [...] lb BMI (Body Mass Index) 31.4 kg/m2 [place] Body Weight 135 lb Weight 90.947 kg BSA (Body Surface Area) 2.02 m2 07/04/2020 11:52am BP Systolic 132 mmHg BP Diastolic 80 mmHg Height 67 inches 5'7" Weight 208.25 lb BMI (Body Mass Index) 32.6 kg/m2 [place] Body Weight 135 lb Weight 94.462 kg BSA (Body Surface Area) 2.06 m2 Results Description No Information Available Procedures Date Code Description Status 02/15/2021 58980 Office/Outpatient New Low MDM 30 -44 Minutes Completed 09/18/2017 [id number] Mammogram Completed Medical Devices Description No Information Available Encounters Type Date Location Provider Dx Diagnosis Office Visit 02/15/2021 8:30a [facility] Orth[facility] Memo Carvajal MD M11.262 Other chondrocalcinosis, left knee M25.572 Pain in left ankle and joint s of left foot Assessments Date Code Description Provider 02/15/2021 M11.262 Bilateral osteoarthritis of knee s Memo Carvajal MD 02/15/2021 M25.572 Pain of left ankle joint Memo trujillo MD Plan of Treatment 02/15/2021 - Memo Carvajal MD* M11.262 Bilateral osteoarthritis of knees* New Xrays:* MRI Knee W/O Contrast Left, Ordered: 02/15/21 * Comments:* The patient reports left more so than right knee pain. There is no iopa-ij-fphv osteoarthritic change in her pain primarily appears to be posterior lateral where the joint space is well-maintained. I suspect a meniscal tear or some other cartilage injury so I would like to get an MRI to evaluate for soft tissue injury. I have also prescribed her a brace as she states that the left knee has been giving way on her with snapping and popping. I have provided her with a home therapy program to start with strengthening and range of motion * Follow up:* Post MRI * M25.572 Pain of left ankle joint* Comments:* The patient does have x-ray imaging which shows evidence of degenerative change in previous likely medial and lateral ligamentous strains or avulsion injuries. An MRI has been ordered by her registered art therapist. We will reevaluate this once the MRI is completed. Functional Status Description No Information Available Mental Status Description No Information Available Referrals Description No Information Available
--- OUTSIDE RECORDS SUMMARY | 2021-03-29 23:20 | CCD ---
Author Author [facility] Organization [facility] Address Unknown Phone Unavailable Care Team Providers Care Belt Maker Name Role Phone Ivory Nunes Unavailable PROBLEMS Type Condition ICD9-CM Code [id number] Code Onset Dates Condition S tatus W/U Status Risk SNOMED Code Notes Problem Major depressive disorder, single episode, unspecified F32.9 Active confirmed 28392751 Problem Unspecified atrial fibrillation I48.91 Active confi rmed 72206307 Problem Chronic obstructive pulmonary disease, unspecified J44.9 Active confirmed 67505886 Problem 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 Active confirmed 370294925 Problem Dilated cardiomyopathy I42.0 Active confirmed 312539130 Problem Vaginal bleeding N93.9 Active confirmed 289 887570 Problem Dyslipidemia E78.5 Active confirmed 9961534 07 Problem Seroma of breast N64.89 Active confirmed 297 258477 Problem Cardiomyopathy, unspecified I42.9 Active confirmed 98846492 Problem Malignant neoplasm of unspecified site of right female breast C50.911 Active confirmed 599864793 Problem Hypothyroidism, unspecified E03.9 Active confirmed 29152093 Problem Rheumatoid arthritis, unspecified M06.9 Active con firmed 45864440 Problem 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 0710 Active confirmed 156329844 Problem Hypothyroidism, unspecified type E03.9 Active conf irmed 11364229 Problem Iron overload due to repeated red blood cell transfusions E83.111 Active confirmed 238338783 Problem Acute gout of right foot, unspecified cause M10.9 Active confirmed 269546740 Problem Hypertensive heart disease with heart failure I11. 0 Active confirmed 99659464 Problem Heart transplant, orthotopic, status Z94.1 Act maddie confirmed 497132954 Problem Rheumatoid arthritis involvi ng multiple sites, unspecified whether rheumatoid factor present M06.9 Active confirmed 2870 89275 Problem Lymphedema of arm I89.0 Active confirmed 44 9143001 Problem Heart transplant recipient Z94.1 Active confirmed 530920846 Problem Primary osteoarthritis involving multiple joints M 89.49 Active confirmed 737788531 Problem BMI 45.0-49.9, adult Z68.42 Active confirmed 934435792 Problem FCI (current) use of systemic steroids Z79.5 2 Active confirmed 725404641005695 Problem Abnormal mammogram R92.8 Active confirmed 1 70144138 Problem Chronic gastrointestinal hemorrhage K92.2 Acti ve confirmed 49173773 Problem Rheumatoid arthritis involvi ng multiple sites with positive rheumatoid factor M05.79 Active confirmed 403598023 Problem Primary osteoarthritis of both knees M17.0 Act maddie confirmed 928622346 Problem Lymphedema I89.0 Active confirmed 46470300 Problem Medicare annual wellness visit, subsequent Z00.00 Active confirmed 801998302 ALLERGIES Allergen (clinical drug ingredient) Drug/Non Drug Allergy do cumented on EMR Reaction Allergy Type Onset Date Status morphine Morphine Sulfate(ND Code:[address]-61) goofy Drug A llergy Active Sudafed(ND Code:[address]-32) Unknown Drug Allergy Active Sulfacet Red blotches on skin Drug Allergy Ac tive ENCOUNTERS from 1965 to 2021-02-10 Encounter Location Date Provider Diagnosis [facility] Rheumatology [address] [place] [address] [place] [address] 14 Jan, 2021 Ivoryrob Nunes Rheumatoid arthritis involvi ng multiple sites with positive rheumatoid factor M05.79 IMMUNIZATIONS Vaccine Route Administration Date Status COVID-19 [...] Unknown Language: Question Answer Notes Languages spoken: Malaysian Amish: Question Answer Notes Amish 21 Jain Sexual Hx: Question Answer Notes [...] Information RESULTS No Results REASON FOR VISIT Medication Refill Request: Folic Acid MEDICAL (GENERAL) HISTORY Type Description Date Medical [...] failure - follows with LVAD team in [place]; 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, [...] (high INR 08/13 Surgical History gastric sleeve [facility]-- lost 12 0 # 03/15 Surgical History heart transplant 05/27/18 Surgical History R mastectomy 08/2019 Hospitalization History CHF 04/2013 Hospitalization History [facility] Gallbladder removed - Dr Car 06/2013 Hospitalization History bleeding-hysterectomy - [place] 2016 Hospitalization History Influenza 06/2016 Hospitalization History GI bleed--[place] 07/2016 Hospitalization History COPD/HTN - [place] 05/2017 Hospitalization History C Diff, Norovirus 2018 Hospitalization History [facility] influenza Hospitalization History [place] cellulitis left arm 10/2020 Goals Section No Information Health Concerns No Information MEDICAL EQUIPMENT No Information MENTAL STATUS No Information FUNCTIONAL STATUS No Information ASSESSMENTS Encounter Date Diagnosis Assessment Notes Treatment Notes Treatm ent Clinical Notes Jan, Rheumatoid arthritis involvi ng multiple sites with positive rheumatoid factor (ICD-10 - M05.79) PLAN OF TREATMENT Medication Medication Name Sig Start Date Stop Date Folic Acid 1 MG 1 tablet Orally Once a day for 30 day(s) Jun, Next Appt Details Provider Name:Dalton Payne, 2021-01 10:00:00 AM, [id number] , , [place], [address], Provider Name:Ivory Nunes, 09:30:00 AM, [address] [facility], , [place], [address], Provider Name:Paris Cool, 20 20-05-06 08:00:00 AM, [address] [facility], , [place], [address], Insurance Providers Payer Name Payer Address Payer Phone Insured Name Patient Relati onship to Insured Coverage Start Date Coverage End Date [employer] OPTIONS [facility] CLAIM DIV [address] [facility] [id number] LESVIA MURRAY self MEDICARE Part A and B [address] [facility] [phone] LESVIA MURRAY self
--- OUTSIDE RECORDS SUMMARY | 2021-03-29 23:20 | CCD | Continuity of Care Document ---
Author Author Tom CARVAJAL MD Organization Unknown Address [address] [place] [address], [place] [address] Phone [phone] Care Team Providers Care Bander And Cellophaner Helper Machine Name Role Phone Sydney Johnson M.D. AUTM [phone] Mary Lou Huitorn R.P.A. AUTM [phone] Tyra Costa M.D. AUTM [phone] Dalton Payne M.D. AUTM [phone] E Pre Op AUTM [phone] AUTM Unavailable Ivory Nunes M.D. AUTM [phone] Problems Active Problems Provider Date Infective otitis [...] Wheezing Unknown Methotrexate 2.5mg Tablets 3 qd [facility] Rheumatology Clinic Potassium Chloride Lidia ER [...] lb BMI (Body Mass Index) 31.4 kg/m2 [place] Body Weight 135 lb Weight 90.947 kg BSA (Body Surface Area) 2.02 m2 07/04/2020 11:52am BP Systolic 132 mmHg BP Diastolic 80 mmHg Height 67 inches 5'7" Weight 208.25 lb BMI (Body Mass Index) 32.6 kg/m2 [place] Body Weight 135 lb Weight 94.462 kg BSA (Body Surface Area) 2.06 m2 Results Description No Information Available Procedures Date Code Description Status 02/15/2021 35084 Office/Outpatient New Low MDM 30 -44 Minutes Completed 09/18/2017 [id number] Mammogram Completed Medical Devices Description No Information Available Encounters Type Date Location Provider Dx Diagnosis Office Visit 02/15/2021 8:30a [facility] Memo Carvajal MD M11.262 Other chondrocalcinosis, left knee M25.572 Pain in left ankle and joint s of left foot Assessments Date Code Description Provider 02/15/2021 M11.262 Bilateral osteoarthritis of knee s Memo Carvajal MD 02/15/2021 M25.572 Pain of left ankle joint Memo trujillo MD Plan of Treatment Future Appointment(s):* 06/05/2021 8:00 am - Memo Carvajal MD at [facility] 02/15/2021 - Memo Carvajal MD* M11.262 Bilateral osteoarthritis of knees* Comments:* The patient reports left more so than right knee pain. There is no alap-ux-lymd osteoarthritic change in her pain primarily appears [...] An MRI has been ordered by her barrel handler. We will reevaluate this once the MRI is completed. Functional Status Description No Information Available Mental Status Description No Information Available Referrals Description No Information Available
--- OUTSIDE RECORDS SUMMARY | 2021-03-29 23:20 | CCD ---
Author Author [facility] Organization [facility] Address Unknown Phone Unavailable Care Team Providers Care Enterprise Project Manager Name Role Phone Ivoyr Nunes Unavailable PROBLEMS Type Condition ICD9-CM Code DXR00-OO Code Onset Dates Condition S tatus W/U Status Risk SNOMED Code Notes Problem Major depressive disorder, single episode, unspecified F32.9 Active confirmed 20278467 Problem Unspecified atrial fibrillation I48.91 Active confi rmed 62792245 Problem Chronic obstructive pulmonary disease, unspecified J44.9 Active confirmed 65345327 Problem 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 Active confirmed 068662580 Problem Dilated cardiomyopathy I42.0 Active confirmed 488508648 Problem Vaginal bleeding N93.9 Active confirmed 289 974244 Problem Dyslipidemia E78.5 Active confirmed 3987086 07 Problem Seroma of breast N64.89 Active confirmed 297 800730 Problem Cardiomyopathy, unspecified I42.9 Active confirmed 12462055 Problem Malignant neoplasm of unspecified site of right female breast C50.911 Active confirmed 309673221 Problem Hypothyroidism, unspecified E03.9 Active confirmed 30375357 Problem Rheumatoid arthritis, unspecified M06.9 Active con firmed 60136540 Problem 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 0710 Active confirmed 797765000 Problem Hypothyroidism, unspecified type E03.9 Active conf irmed 53370494 Problem Iron overload due to repeated red blood cell transfusions E83.111 Active confirmed 783814188 Problem Acute gout of right foot, unspecified cause M10.9 Active confirmed 863992214 Problem Hypertensive heart disease with heart failure I11. 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 Active confirmed 372018019 Problem Primary osteoarthritis involving multiple joints M 89.49 Active confirmed 501053882 Problem BMI 45.0-49.9, adult Z68.42 Active confirmed 627222130 Problem custodial (current) use of systemic steroids Z79.5 2 Active confirmed 696938124767371 Problem Abnormal mammogram R92.8 Active confirmed 1 58817090 Problem Chronic gastrointestinal hemorrhage K92.2 Acti ve confirmed 92716185 Problem Rheumatoid arthritis involvi ng multiple sites with positive rheumatoid factor M05.79 Active confirmed 297226566 Problem Primary osteoarthritis of both knees M17.0 Act maddie confirmed 272155453 Problem Lymphedema I89.0 Active confirmed 20356597 Problem Medicare annual wellness visit, subsequent Z00.00 Active confirmed 288555060 ALLERGIES Allergen (clinical drug ingredient) Drug/Non Drug Allergy do cumented on EMR Reaction Allergy Type Onset Date Status morphine Morphine Sulfate(ND Code:[address]-89) goofy Drug A llergy Active Sudafed(ND Code:[address]-16) Unknown Drug Allergy Active Sulfacet Red blotches on skin Drug Allergy Ac tive ENCOUNTERS from 1965 to 2021-01-31 Encounter Location Date Provider Diagnosis [facility] Rheumatology [address] [place] [address] [place] [address] 05 Jan, 2021 Ivory Nunes IMMUNIZATIONS Vaccine Route Administration Date Status COVID-19 [...] Unknown Language: Question Answer Notes Languages spoken: Czech Yazdanism: Question Answer Notes Yazdanism 21 Orthodoxy Sexual Hx: Question Answer Notes Had sex [...] Notes Start Da te End Date Status Fludrocortisone Acetate 0.1 MG 1 tablet Orally Daily Active Multi For Her 1 1 tab Orally once daily Active Tacrolimus 1 MG 2mg each morning, 3 mg easch evening Orally Active Exemestane 25 MG 1 tablet with a meal Orally Once a day for 30 day(s) Active Pravastatin Sodium 40 MG 1 tablet Orally Once a day Active CellCept 250 MG as directed Orally bid Active Venlafaxine HCl ER 75 MG 1 capsule with food Orally Once a day Active Magnesium Oxide 400 MG 1 tablet with food Orally bid Active Acetaminophen 325 MG 2 tablets as needed Orally every 6 hrs Active Vitamin B12 1000 MCG 1 tablet Orally Once a day Active Zofran 4 MG 1 tablet Orally Once a day Active Famciclovir 500 MG 1 tablet Orally tid for 7 day(s) Oct Active Fluconazole 200 MG 1 tablet Orally Once a day Active Levothyroxine Sodium 75 MCG 1 tablet on an empty stoma ch in the morning Orally Once a day Feb, Active Methotrexate Sodium 2.5 MG 4 tablets Orally Once weekly for 90 d ay(s) Jun, Active Cyclobenzaprine HCl 5 MG 1 tablet as needed Orally Three times a day Active Losartan Potassium 50 MG 1 tablet Orally Once a day Active Ipratropium-Albuterol 0.5-2.5 (3) MG/3ML 3 ml as needed Inha lation every 6 hrs as needed Active Lasix 20 MG 1/2 tablet Orally Once a day Active Klor-Con M20 20 MEQ 1 tablet with food Orally twice daily Active traZODone HCl 100 mg 2 tablet at bedtime Orally Once a day Active amLODIPine Besylate 10 MG 1 tablet Orally Once a day Active Ciprodex 0.3-0.1 % 4 drops into affected ear Otic Twice a day fo r 7 day(s) Jun, Active predniSONE 5 MG 1.5 tablets Orally Once a day 06/20/20 taking 7.5 mg QD Dec, Active Protonix 40 MG 1 tablet Orally Once a day Active Calcium 1000 + D 1000-800 MG-UNIT 1 tablet with a meal Orally twice d aily Active Cefdinir 300 MG 1 cap Orally bid for 10 day(s) Mar, 9 Active Bisoprolol Fumarate 5 MG 1 tablet Orally Once a day Active Annie-Bid Probiotic 1 Two tablets with meals Orally three times daily Active Torsemide 20 MG 1/2 tablet Orally Once a day Active Hydroxychloroquine Sulfate 200 MG 1 tablet Orally bid for 90 day s Dec, Active MiraLax 8.5 8.5 grams mixed with [address] or juice as needed Orally Once a day Active Aspirin 81 MG 1 tablet Orally Once a day Active Metoprolol Succinate ER 25 mg 1/2 tablet Oral Once a day Active Senna Concentrate 8.6 MG 2 tablets Orally Once a day Active Folic Acid 1 MG 1 tablet Orally Once a day for 30 day(s) 0 Jun, Active Symbicort 160-4.5 MCG/ACT 2 puffs Inhalation bid for 30 Active ALPRAZolam 0.5 MG 1 tablet Orally Twice a day as needed Active PROCEDURES No Information RESULTS No Results REASON FOR VISIT reschedule MEDICAL (GENERAL) HISTORY Type Description Date Medical [...] failure - follows with LVAD team in [place]; 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, [...] 08/2019 Hospitalization History CHF 04/2013 Hospitalization History [facility] Gallbladder removed - Dr Car 06/2013 Hospitalization History bleeding-hysterectomy - [place] 2016 Hospitalization History Influenza 06/2016 Hospitalization History GI bleed--[place] 07/2016 Hospitalization History COPD/HTN - [place] 05/2017 Hospitalization History C Diff, Norovirus 2018 Hospitalization History [facility] influenza Hospitalization History [place] cellulitis left arm 10/2020 Goals Section No Information Health Concerns No Information MEDICAL EQUIPMENT No Information MENTAL STATUS No Information FUNCTIONAL STATUS No Information ASSESSMENTS No Information PLAN OF TREATMENT Medication Medication Name Sig Start Date Stop Date Methotrexate Sodium 2.5 MG 4 tablets Orally Once weekly for 90 day(s) Jun, Next Appt Details Provider Name:Ivory Nunes, 08:00:00 AM, [address] [facility], , [place], [address], Provider Name:Dalton Payne, 2021-01 08:30:00 AM, [address] , , [place], [address], Provider Name:Paris Cool, 20-05-06 08:00:00 AM, [address] [facility], , [place], [address], Insurance Providers Payer Name Payer Address Payer Phone Insured Name Patient Relati onship to Insured Coverage Start Date Coverage End Date MEDICARE Part A and B [address] [facility] [id number] [phone] LESVIA MURRAY [facility] HEALTH CARE OPTIONS [facility] CLAIM DIV [address] [facility] [id number] LESVIA MURRAY
--- OUTSIDE RECORDS SUMMARY | 2021-03-29 23:20 | CCD | Continuity of Care Document ---
Author Author Tom CARVAJAL MD Organization Unknown Address [address] [place] [address], [place] [address] Phone [phone] Care Team Providers Care Frame Gate Mortiser Operator Name Role Phone Sydney Johnson M.D. AUTM [phone] Mary Lou Huitron R.P.A. AUTM [phone] Tyra Costa M.D. AUTM [phone] Dalton Payne M.D. AUTM [phone] E Pre Op AUTM [phone] AUTM Unavailable Ivory Nunes M.D. AUTM [phone] Problems Active Problems Provider Date Infective otitis [...] Wheezing Unknown Methotrexate 2.5mg Tablets 3 qd [facility] Rheumatology Clinic Potassium Chloride Lidia [...] lb BMI (Body Mass Index) 31.4 kg/m2 [place] Body Weight 135 lb Weight 90.947 kg BSA (Body Surface Area) 2.02 m2 07/04/2020 11:52am BP Systolic 132 mmHg BP Diastolic 80 mmHg Height 67 inches 5'7" Weight 208.25 lb BMI (Body Mass Index) 32.6 kg/m2 [place] Body Weight 135 lb Weight 94.462 kg BSA (Body Surface Area) 2.06 m2 Results Description No Information Available Procedures Date Code Description Status 02/15/2021 41432 Office/Outpatient New Moderate M DM 45-59 Minutes Completed 09/18/2017 [id number] Mammogram Completed Medical Devices Description No Information Available Encounters Type Date Location Provider Dx Diagnosis Office Visit 02/15/2021 8:30a [facility] Orthopedics Memo Carvajal MD M11.262 Other [...] Knee W/O Contrast Left, Ordered: 02/15/21 * New Orders:* Hinged Knee Brace, Ordered: 02/15/21 * Comments:* The patient reports left more so than right knee pain. There is no nbsy-jn-ygmc osteoarthritic change in her pain primarily appears [...] An MRI has been ordered by her type bar and segment assembler. We will reevaluate this once the MRI is completed. Functional Status Description No Information Available Mental Status Description No Information Available Referrals Description No Information Available
--- OUTSIDE RECORDS SUMMARY | 2021-03-29 23:20 | CCD ---
Author Author [facility] Organization [facility] Address Unknown Phone Unavailable Care Team Providers Care Burlapper Name Role Phone Dalton Payne Unavailable PROBLEMS Type Condition ICD9-CM Code [id number] Code Onset Dates Condition S tatus W/U Status Risk SNOMED Code Notes Problem Major depressive disorder, single episode, unspecified F32.9 Active confirmed 36458224 Problem Unspecified atrial fibrillation I48.91 Active confi rmed 97992501 Problem Chronic obstructive pulmonary disease, unspecified J44.9 Active confirmed 29714657 Problem 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 Active confirmed 013996221 Problem Dilated cardiomyopathy I42.0 Active confirmed 341996194 Problem Vaginal bleeding N93.9 Active confirmed 289 876191 Problem Dyslipidemia E78.5 Active confirmed 1003336 07 Problem Seroma of breast N64.89 Active confirmed 297 228811 Problem Cardiomyopathy, unspecified I42.9 Active confirmed 59867805 Problem Malignant neoplasm of unspecified site of right female breast C50.911 Active confirmed 950866043 Problem Hypothyroidism, unspecified E03.9 Active confirmed 45700158 Problem Rheumatoid arthritis, unspecified M06.9 Active con firmed 70361243 Problem 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 0710 Active confirmed 714145494 Problem Hypothyroidism, unspecified type E03.9 Active conf irmed 79072031 Problem Iron overload due to repeated red blood cell transfusions E83.111 Active confirmed 732184730 Problem Acute gout of right foot, unspecified cause M10.9 Active confirmed 042802852 Problem Hypertensive heart disease with heart failure I11. 0 Active confirmed 05387742 Problem Hearing disorder, unspecified laterality H91.90 Active confirmed 221844103 Problem Heart transplant, orthotopic, status Z94.1 Act maddie confirmed 488395625 Problem Rheumatoid arthritis involvi ng multiple sites, unspecified whether rheumatoid factor present M06.9 Active confirmed 2870 27172 Problem Lymphedema of arm I89.0 Active confirmed 44 6127854 Problem Heart transplant recipient Z94.1 Active confirmed 010382840 Problem Primary osteoarthritis involving multiple joints M 89.49 Active confirmed 324359420 Problem BMI 45.0-49.9, adult Z68.42 Active confirmed 142463555 Problem longterm (current) use of systemic steroids Z79.5 2 Active confirmed 960066884923031 Problem Abnormal mammogram R92.8 Active confirmed 1 96633060 Problem Chronic gastrointestinal hemorrhage K92.2 Acti ve confirmed 49161274 Problem Rheumatoid arthritis involvi ng multiple sites with positive rheumatoid factor M05.79 Active confirmed 466793823 Problem Primary osteoarthritis of both knees M17.0 Act maddie confirmed 131023397 Problem Lymphedema I89.0 Active confirmed 37813787 Problem Medicare annual wellness visit, subsequent Z00.00 Active confirmed 412127937 ALLERGIES Allergen (clinical drug ingredient) Drug/Non Drug Allergy do cumented on EMR Reaction Allergy Type Onset Date Status morphine Morphine Sulfate(ND Code:[address]-30) goofy Drug A llergy Active Sudafed(NDC Code:[address]-49) Unknown Drug Allergy Active Sulfacet Red blotches on skin Drug Allergy Ac tive ENCOUNTERS from 1965 to 2021-03-10 Encounter Location Date Provider Diagnosis [place] [id number] [place] [address] Feb, 2021 Dalton Payne IMMUNIZATIONS Vaccine Route Administration Date Status Hepatitis A & B 1mL Twinrix IM Intramuscular September 18, 2017 Adm inistered COVID-19 dose #2 given elsewhere Unspecified Unknown Jun Administered COVID-19 dose #1 given elsewhere Unspecified Unknown Jun 26, 2020 Administered Pneumococcal Adult 0.5mL Pneumovax 23 Unknown Jan 27 14 Administered TDAP 0.5mL (Boostrix) IM Intramuscular September 18, 2017 Administe red Pneumococcal 0.5mL Prevnar 13 IM Intramuscular May 13, 2015 A dministered Hepatitis A & B 1mL Twinrix IM Intramuscular Jan 07, 2018 Adm inistered Influenza 6mo & up Fluzone Unknown July [...] Unknown Language: Question Answer Notes Languages spoken: Filipino Taoist: Question Answer Notes Taoist 21 Hinduism Sexual Hx: Question Answer Notes Had sex [...] Orally bid for 10 day(s) Mar, 9 Not-Taking predniSONE 5 MG 1.5 tablets Orally [...] Information RESULTS No Results REASON FOR VISIT referral MEDICAL (GENERAL) HISTORY Type Description Date Medical [...] failure - follows with LVAD team in [place]; 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/[place] influenza Hospitalization History [place] cellulitis left arm 10/2020 Goals Section No Information Health Concerns No Information MEDICAL EQUIPMENT No Information MENTAL STATUS No Information FUNCTIONAL STATUS No Information ASSESSMENTS No Information PLAN OF TREATMENT Next Appt Details Provider Name:Ivory Curielew, 09:30:00 AM, [address] [facility], , [place], [address], Provider Name:Paris Cool, 20 20-05-06 08:00:00 AM, [address] [facility], , [place], [address], Provider Name:Dalton Payne, 2021-08 08:30:00 AM, [address], , [place], [address], Insurance Providers Payer Name Payer Address Payer Phone Insured Name Patient Relati onship to Insured Coverage Start Date Coverage End Date MEDICARE Part A and B [address] [facility] [id number] LESVIA MURRAY [facility] OPTIONS [facility] CLAIM DIV [address] [facility] [phone] LESVIA MURRAY
--- OUTSIDE RECORDS SUMMARY | 2021-03-29 23:20 | CCD ---
Author Author [facility] Organization [facility] Address Unknown Phone Unavailable Care Team Providers Care Size Tester Name Role Phone Ivory Nunes Unavailable PROBLEMS Type Condition ICD9-CM Code OJK21-RP Code Onset Dates Condition S tatus W/U Status Risk SNOMED Code Notes Problem Major depressive disorder, single episode, unspecified F32.9 Active confirmed 52397451 Problem Unspecified atrial fibrillation I48.91 Active confi rmed 98462774 Problem Chronic obstructive pulmonary disease, unspecified J44.9 Active confirmed 80558257 Problem 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 Active confirmed 287248187 Problem Dilated cardiomyopathy I42.0 Active confirmed 994156655 Problem Vaginal bleeding N93.9 Active confirmed 289 554825 Problem Dyslipidemia E78.5 Active confirmed 2137465 07 Problem Seroma of breast N64.89 Active confirmed 297 202988 Problem Cardiomyopathy, unspecified I42.9 Active confirmed 33010841 Problem Malignant neoplasm of unspecified site of right female breast C50.911 Active confirmed 998192865 Problem Hypothyroidism, unspecified E03.9 Active confirmed 67961330 Problem Rheumatoid arthritis, unspecified M06.9 Active con firmed 78776190 Problem 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 0710 Active confirmed 534106523 Problem Hypothyroidism, unspecified type E03.9 Active conf irmed 88690351 Problem Iron overload due to repeated red blood cell transfusions E83.111 Active confirmed 142820033 Problem Acute gout of right foot, unspecified cause M10.9 Active confirmed 611004761 Problem Hypertensive heart disease with heart failure I11. 0 Active confirmed 28154447 Problem Heart transplant, orthotopic, status Z94.1 Act maddie confirmed 923433702 Problem Rheumatoid arthritis involvi ng multiple sites, unspecified whether rheumatoid factor present M06.9 Active confirmed 2870 10691 Problem Lymphedema of arm I89.0 Active confirmed 44 5745070 Problem Heart transplant recipient Z94.1 Active confirmed 800401147 Problem Primary osteoarthritis involving multiple joints M 89.49 Active confirmed 533408498 Problem BMI 45.0-49.9, adult Z68.42 Active confirmed 093011897 Problem USP (current) use of systemic steroids Z79.5 2 Active confirmed 567813757380029 Problem Abnormal mammogram R92.8 Active confirmed 1 88751046 Problem Chronic gastrointestinal hemorrhage K92.2 Acti ve confirmed 79051997 Problem Rheumatoid arthritis involvi ng multiple sites with positive rheumatoid factor M05.79 Active confirmed 735934984 Problem Primary osteoarthritis of both knees M17.0 Act maddie confirmed 041192933 Problem Lymphedema I89.0 Active confirmed 91959153 Problem Medicare annual wellness visit, subsequent Z00.00 Active confirmed 422906884 ALLERGIES Allergen (clinical drug ingredient) Drug/Non Drug Allergy do cumented on EMR Reaction Allergy Type Onset Date Status morphine Morphine Sulfate(ND Code:[address]-50) goofy Drug A llergy Active Sudafed(ND Code:[address]-93) Unknown Drug Allergy Active Sulfacet Red blotches on skin Drug Allergy Ac tive ENCOUNTERS from 1965 to 2021-02-03 Encounter Location Date Provider Diagnosis 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 5-10 years REASON FOR REFERRAL from 1965 to 2021-02-03 Reason Please eval and treat left> right knee osteoarthritis , no relief with IA steroid or hyaluronic acid Diagnosis 1 Primary osteoarthritis invol ving multiple joints (M89.49) Referral Organization [facility] Rheumatology Referring Provider First Name Ivory Referring Provider Last Name Des Referring Provider Specialty Rheumatology Referred Provider Specialty Orthopedic Surgery Referral Priority Routine General Notes Erika Tan 02/02/2021 8:58:5 2 AM > Referral sent to [facility] Orthopedics with attachments. Clinical Notes Ivory Nunes 02/02/2021 8:32:36 AM > Please eval and treat left> right knee osteoarthritis , no relief with IA steroid or hyaluronic acid VITAL SIGNS Weight 202.4 lbs Jan, Weight-kg 91.81 kg Jan, Height 65.75 in Jan, BMI 32.91 kg/m2 Jan, Heart Rate 115 /min Jan, Respiratory Rate 18 /min Jan, Temperature 98.3 degrees Fahrenheit Jan, Oximetry 95 Jan, Blood pressure systolic 118 mm Hg Jan, Blood pressure diastolic 78 mm Hg Jan, MEDICATIONS Medication SIG (Take, [...] weekly for 90 d ay(s) Jun, Active Acetaminophen 325 MG 2 tablets as needed Orally every 6 hrs Active Venlafaxine HCl ER 75 MG 1 capsule with food Orally Once a day Active Aspirin 81 MG 1 tablet Orally Once a day Active Multi For Her 1 1 tab Orally once daily Active traZODone HCl 100 mg 2 tablet at bedtime Orally Once a day Active Zofran 4 MG 1 tablet Orally Once a day Active Exemestane 25 MG 1 tablet with a meal Orally Once a day for 30 day(s) Active Calcium 1000 + D 1000-800 MG-UNIT 1 tablet with a meal Orally twice d aily Active Metoprolol Succinate ER 25 mg 1/2 tablet Oral Once a day Active Vitamin B12 1000 MCG 1 tablet Orally Once a day Active Hydroxychloroquine Sulfate 200 MG 1 tablet Orally bid for 90 day s Dec, Active Folic Acid 1 MG 1 tablet Orally Once a day for 30 day(s) 0 Jun, Active predniSONE 5 MG 1.5 tablets [...] Information RESULTS No Results REASON FOR VISIT C/o left knee pain, c/o left ankle pain. Left ankle pain ingoing for one month. 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, [...] (high INR 08/13 Surgical History gastric sleeve [facility]-- lost 12 0 # 03/15 Surgical History heart transplant 05/27/18 Surgical History R mastectomy 08/2019 Hospitalization History CHF 04/2013 Hospitalization History [facility] Gallbladder removed - Dr Car 06/2013 Hospitalization History bleeding-hysterectomy - [place] 2016 Hospitalization History Influenza 06/2016 Hospitalization History GI bleed--[place] 07/2016 Hospitalization History COPD/HTN - [place] 05/2017 Hospitalization History C Diff, Norovirus 2018 Hospitalization History [facility]/[place] influenza Hospitalization History [place] cellulitis left arm 10/2020 Goals Section No Information Health Concerns No Information MEDICAL EQUIPMENT No Information MENTAL STATUS No Information FUNCTIONAL STATUS No Information ASSESSMENTS Encounter Date Diagnosis Assessment Notes Treatment Notes Treatm ent Clinical Notes Jan, 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 (IC D-10 - Z79.52) DEXA scan 2019 normal Continue calcium and vitamin D Continue physical therapy Jan, Rheumatoid arthritis involvi ng multiple sites with positive rheumatoid factor (ICD-10 - M05.79) SEROPOSITIVE rheumatoid factor positive anti-CCP negative Nonerosive Non deforming No extra-articular manifestations to date On Plaquenil since diagnosis On prednisone 5 mg a day since March 2020 following which the transplant surgeons in [place] increased to 7.5 mg daily for the knee pain Today with complaints of left knee pain which is same since taper of prednisone and left ankle pains which is started a month ago No evidence of inflammatory arthritis on exam today except LEFT PERONEAL TENDON TENDERNESS WITH NO INFLAMMATORY SIGNAL Symptoms most likely from osteoarthritis/ bone spur Given no benefit from low-dose steroids and only from high-dose steroids, x-ray showing significant osteoarthritis, normal inflammation marker, no other joint involvement, no prolonged morning stiffness most likely knee pain secondary to osteoarthritis Recommend follow-up with orthopedics for the same, referral given today Continue methotrexate 10 mg weekly by mouth on Continue folic acid daily- refiils given Continue prednisone 5 mg for now Labs ordered today ordered Xrays of both ankles for further eval If inflammation markers stable will decrease prednisone to 2.5 mg a day and maintain methotrexate at 10 mg weekly If inflammation markers elevated will increase methotrexate to 15 mg weekly Repeat labs in a month then taper accordingly Explained to the patient the need for Plaquenil eye exam in detail eye exam mar 09, 2021 Recommend holding off on the Plaquenil until the eye exam is completed since it has been more than 3 years since she has had an eye exam and she has been on the Plaquenil for more than 10 years Return in 2 months Jan, USP current use of immunosuppressi ve drug (ICD-10 - Z79.899) Explained the need for an eye exam soon as possible given the possibility of Plaquenil eye toxicity where she has been on it for more than 10 years Referral given to eye doctor for further eval - exam scheduled for mar 09, [facility] today Continue folic acid 1 mg a day Jan, Primary osteoarthritis involving multipl e joints (ICD-10 - M89.49) Mainly affecting the knees Left more than right No relief with gel or steroid injections in the past Benefit with high-dose of prednisone but no benefit on low-dose Recommend follow-up with orthopedics for further management referral given to orthot Jan, Other PATIENTS INSTRUCTIONS Labs today ordered Xrays of both hands, foot, ankles for further eval , make sure Xrays are covered with insurance before doing it we will call you regarding the taper of prednisone continue Methotrexate 10 mg weekly for now on continue folic acid 1 mg daily continue prednisone 5 mg daily for now After Xrays will determine if we need further testing with MRI please call us if symptoms worsen or new symptoms develop keep appointment with opthalmology on Mar 09, 2021 for eye exam to make sure it is safe to continue the plaquenil referred to orthopedics to eval for knee pain return in 2 months. More than 50% of the 35 minute visit was spent in patient education, counseling, and coordination of care. I reviewed her symptoms, imaging findings, laboratory results, physical findings, and treatment to date. I have answered patient's questions, and they stated satisfaction regarding the treatment plan and recommendations. PLAN OF TREATMENT Treatment Notes Assessment Notes Clinical Notes USP (current) use of systemic steroids DEXA scan 2019 normalContinue calcium and vitamin DContinue physical therapy 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 rheumatoid factor SEROPOSITIVE rheumatoid factor positive anti-CCP negativeNonerosiveNon deformingNo extra-articular manifestations to dateOn Plaquenil since diagnosisOn prednisone 5 mg a day since March 2020 following which the transplant surgeons in [place] increased to 7.5 mg daily for the knee painToday with complaints of left knee pain which is same since taper of prednisone and left ankle pains which is started a month agoNo evidence of inflammatory arthritis on exam today except LEFT PERONEAL TENDON TENDERNESS WITH NO INFLAMMATORY SIGNALSymptoms most likely from osteoarthritis/ bone spurGiven no benefit from low-dose steroids and only from high-dose steroids, x-ray showing significant osteoarthritis, normal inflammation marker, no other joint involvement, no prolonged morning stiffness most likely knee pain secondary to osteoarthritisRecommend follow-up with orthopedics for the same, referral given todayContinue methotrexate 10 mg weekly by mouth on Continue folic acid daily- refiils givenContinue prednisone 5 mg for nowLabs ordered todayordered Xrays of both ankles for further evalIf inflammation markers stable will decrease prednisone to 2.5 mg a day and maintain methotrexate at 10 mg weeklyIf inflammation markers elevated will increase methotrexate to 15 mg weeklyRepeat labs in a month then taper accordinglyExplained to the patient the need for Plaquenil eye exam in det[place] exam mar 09ecommend holding off on the Plaquenil until the eye exam is completed since it has been more than 3 years since she has had an eye exam and she has been on the Plaquenil for more than 10 yearsReturn in 2 months USP current use of immunosuppressive drug Explained the need for an eye exam soon as possible given the possibility of Plaquenil eye toxicity where she has been on it for more than 10 yearsReferral given to eye doctor for further eval - [facility] todayContinue folic acid 1 mg a day Primary osteoarthritis involving multiple joints Mainly affecting the kneesLeft more than rightNo relief with gel or steroid injections in the pastBenefit with high-dose of prednisone but no benefit on low-doseRecommend follow-up with orthopedics for further managementreferral given to orthot Treatment Notes Test Name Order Date Ankle, complete PLZ or [facility] 2021-02-02 [facility] Hand, complete 2021-02-02 [facility] Foot, complete 2021-02-02 ERYTHROCYTE SEDIMENTATION RATE 2021-02-02 Comprehensive Metabolic Profile (CMP) 2021-02-02 CBC with Differential 2021-02-02 C REACTIVE PROTEIN QUANTITATIV (At [facility] Lab) 2021-02-02 Referrals Referral Date Details Please eval and treat left> right knee osteoarthritis , no relief with IA steroid or hyaluronic acid Next Appt Details 2 Months Reason:f/u RA Provider Name:Dalton Payne, 2021-01 08:30:00 AM, [address], , [place], [address], Provider Name:Ivroy Nunes, 09:30:00 AM, [address] [facility], , [place], [address], Provider Name:Paris Cool, 20-05-06 08:00:00 AM, [address] [facility], , [place], [address], Follow Up:2 Monthsf/u RA Insurance Providers Payer Name Payer Address Payer Phone Insured Name Patient Relati onship to Insured Coverage Start Date Coverage End Date [employer] HE[employer] CARE OPTIONS [facility] CLAIM DIV [id number] [facility] [phone] LESVIA MURRAY MEDICARE Part A and B [address] [facility] [id number] [phone] LESVIA MURRAY self
--- OUTSIDE RECORDS SUMMARY | 2021-03-29 23:21 | CCD ---
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 Name Role Phone Ysabel Cardona MD Unavailable Unavailable Ysabel Cardona MD Unavailable Unavailable Ysabel Cardona MD Unavailable Unavailable Ysabel Cardona MD Unavailable Unavailable Ysabel Cardona MD Unavailable Unavailable Ysabel Cardona MD Unavailable Unavailable Ysabel Cardona MD Unavailable Unavailable Ysabel Cardona MD Unavailable Unavailable Ysabel Cardona MD Unavailable Unavailable Ysabel Cardona MD Unavailable Unavailable Ysabel Cardona MD Unavailable Unavailable Ysabel Cardona MD Unavailable Unavailable Ysabel Cardona MD Unavailable Unavailable Ysabel Cardona MD Unavailable Unavailable Ysabel Cardona MD Unavailable Unavailable Ysabel Cardona MD Unavailable Unavailable Ysabel Cardona MD Unavailable Unavailable Ali, Ysabel VEGAS Unavailable Unavailable Ali, Ysabel VEGAS Unavailable Unavailable Ali, Ysabel VEGAS Unavailable Unavailable Ali, Ysabel VEGAS Unavailable Unavailable Ali, Ysabel VEGAS Unavailable Unavailable Ali, Ysabel VEGAS Unavailable Unavailable Ali, Ysabel VEGAS Unavailable Unavailable Ali, Ysabel VEGAS Unavailable Unavailable Ali, Ysabel VEGAS Unavailable Unavailable Ali, Ysabel VEGAS Unavailable Unavailable Ali, Ysabel VEGAS Unavailable Unavailable Ali, Ysabel VEGAS Unavailable Unavailable Ali, Ysabel VEGAS Unavailable Unavailable Ali, Ysabel VEGAS Unavailable Unavailable Ali, Ysabel VEGAS Unavailable Unavailable Ali, Ysabel VEGAS Unavailable Unavailable Ali, Ysabel VEGAS Unavailable Unavailable Ali, Ysabel VEGAS Unavailable Unavailable Ali, Ysabel VEGAS Unavailable Unavailable Ali, Ysabel VEGAS Unavailable Unavailable Ali, Ysabel VEGAS Unavailable Unavailable Ali, Ysabel VEGAS Unavailable Unavailable Ali, Ysabel VEGAS Unavailable Unavailable Ali, Ysabel VEGAS Unavailable Unavailable Ali, Ysabel VEGAS Unavailable Unavailable Ali, Ysabel VEGAS Unavailable Unavailable Ali, Ysabel VEGAS Unavailable Unavailable Ali, Ysabel VEGAS Unavailable Unavailable Ali, Ysabel VEGAS Unavailable Unavailable Ali, Ysabel VEGAS Unavailable Unavailable Ali, Ysabel VEGAS Unavailable Unavailable Dulce, Ysabel VEGAS Unavailable Unavailable Ali, Ysabel VEGAS Unavailable Unavailable Ali, Ysabel VEGAS Unavailable Unavailable Dulce, Ysabel VEGAS Unavailable Unavailable Memo Bird MD Unavailable Unavailable Memo Bird MD Unavailable Unavailable Memo Bird MD Unavailable Unavailable Memo Bird MD Unavailable Unavailable Memo Bird MD Unavailable Unavailable Memo Bird MD Unavailable Unavailable Memo Bird MD Unavailable Unavailable Memo Bird MD Unavailable Unavailable Memo Bird MD Unavailable Unavailable Memo Bird MD Unavailable Unavailable DERRICK HODGE Unavailable Unavailable NONA REY MD Unavailable Unavailable NONA REY MD Unavailable Unavailable NONA REY MD Unavailable Unavailable NONA REY MD Unavailable Unavailable NONA REY MD Unavailable Unavailable NONA REY MD Unavailable Unavailable NONA REY MD Unavailable Unavailable NONA REY MD Unavailable Unavailable NONA REY MD Unavailable Unavailable NONA REY MD Unavailable Unavailable NONA REY MD Unavailable Unavailable NONA REY MD Unavailable Unavailable NONA REY MD Unavailable Unavailable NONA REY MD Unavailable Unavailable NONA REY MD Unavailable Unavailable NONA REY MD Unavailable Unavailable NONA REY MD Unavailable Unavailable NONA REY MD Unavailable Unavailable NONA REY MD Unavailable Unavailable NONA REY MD Unavailable Unavailable NONA REY MD Unavailable Unavailable NONA REY MD Unavailable Unavailable NONA REY MD Unavailable Unavailable NONA REY MD Unavailable Unavailable NONA REY MD Unavailable Unavailable NONA REY MD Unavailable Unavailable REY, LEWAY MD Unavailable Unavailable REY, LEWAY MD Unavailable Unavailable REY, LEWAY MD Unavailable Unavailable REY, LEWAY MD Unavailable Unavailable REY, LEWAY MD Unavailable Unavailable REY, LEWAY MD Unavailable Unavailable REY, LEWAY MD Unavailable Unavailable REY, LEWAY MD Unavailable Unavailable REY, LEWAY MD Unavailable Unavailable REY, LEWAY MD Unavailable Unavailable REY, LEWAY MD Unavailable Unavailable REY, LEWAY MD Unavailable Unavailable REY, LEWAY MD Unavailable Unavailable REY, LEWAY MD Unavailable Unavailable REY, LEWAY MD Unavailable Unavailable REY, LEWAY MD Unavailable Unavailable REY, LEWAY MD Unavailable Unavailable REY, LEWAY MD Unavailable Unavailable REY, LEWAY MD Unavailable Unavailable REY, LEWAY MD Unavailable Unavailable REY, LEWAY MD Unavailable Unavailable REY, LEWAY MD Unavailable Unavailable REY, LEWAY MD Unavailable Unavailable Re-disclosure Warning The records that you are about to access may contain information from federally-assisted alcohol or drug abuse programs. If such information is present, then the following federally mandated warning applies: This information has been disclosed to you from records protected by federal confidentiality rules (42 CFR part 2). The federal rules prohibit you from making any further disclosure of this information unless further disclosure is expressly permitted by the written consent of the person to whom it pertains or as otherwise permitted by 42 CFR part 2. A general authorization for the release of medical or other information is NOT sufficient for this purpose. The Federal rules restrict any use of the information to criminally investigate or prosecute any alcohol or drug abuse patient.The records that you are about to access may contain highly sensitive health information, the redisclosure of which is protected by Article 27-F of the [facility] Public Health law. If you continue you may have access to information: Regarding HIV / AIDS; Provided by facilities licensed or operated by the [facility] Office of Mental Health; or Provided by the [facility] Office for People With Developmental Disabilities. If such information is present, then the following [facility] mandated warning applies: This information has been disclosed to you from confidential records which are protected by state law. State law prohibits you from making any further disclosure of this information without the specific written consent of the person to whom it pertains, or as otherwise permitted by law. Any unauthorized further disclosure in violation of state law may result in a fine or penitentiary sentence or both. A general authorization for the release of medical or other information is NOT sufficient authorization for further disc losure. Family History Family Member Name Family Member Gender Family Member Status Date o f Status Description Data Source(s) Unknown Female Problem [facility] ([facility] Encounters Encounter Providers Location Date Indications Data Source(s ) [place] [address] [facility] [address] 03/08/2021 12:00:00 AM EST [facility]CW1 [facility] Outpatient Attender: DERRICK Gallegoser: DERRICK ARRIAGA 03/07/2021 12:00:00 AM EST - 03/08/2021 12:00:00 AM EST Heart transplant status [facility] Heart transplant status Outpatient Attender: Memo Dela Cruz/Yessi/Amanuel/Rein dl 03/03/2021 08:00:00 AM EDT [facility] ([facility] [place] [address] [facility] [address] 02/22/2021 12:00:00 AM EDT eCW1 ([facility]) Outpatient Attender: Memo Dela Cruz/[place]/Amanuel/Rein dl 02/15/2021 08:30:00 AM EDT [facility] ([facility]) Unknown [address] [facility] [address] 02/09/2021 12:00:00 AM EDT eCW1 ([facility]) Unknown [address] [facility] [address] 02/08/2021 12:00:00 AM EDT eCW1 ([facility]) [place] [address] [facility] [address] 02/02/2021 12:00:00 AM EDT eCW1 ([facility]) Unknown [address] [facility] [address] 01/31/2021 12:00:00 AM EDT eCW1 ([facility]) Outpatient Attender: DERRICK HODGEReferrer: DERRICK ARRIAGA 01/30/2021 12:00:00 AM EDT - 01/31/2021 12:00:00 AM EDT Immunodeficiency, unspecified [facility] Immunodeficiency, unspecified Outpatient Attender: DERRICK HODGEReferrer: DERRICK ARRIAGA 12/27/2020 12:00:00 AM EDT - 12/28/2020 12:00:00 AM EDT Other fdc (current) drug therapy [facility] Other fdc (current) drug therapy Unknown [address] [facility] [address] 12/08/2020 12:00:00 AM EDT eCW1 [facility] [place] [address] [facility] [address] 11/24/2020 12:00:00 AM EDT eCW1 [facility] [place] [address] [facility] [address] 11/18/2020 12:00:00 AM EDT eCW1 ([facility]) Unknown [address] [facility] [address] 10/24/2020 12:00:00 AM EDT eCW1 [facility]) Outpatient 10/20/2020 12:00:00 AM EDT [facility] Outpatient Attender: Ysabel Cardona MD Main office - [place] 10/12/2020 01:45:00 PM EDT [facility] ([facility]) [place] [address] [facility] [address] 10/04/2020 12:00:00 AM EDT eCW1 [facility] [place] [address] [facility] [address] 09/05/2020 12:00:00 AM EDT eCW1 ([facility]) Outpatient Attender: DERRICK HODGEReferrer: DERRICK ARRIAGA 08/30/2020 12:00:00 AM EDT - 08/31/2020 12:00:00 AM EDT Heart transplant status [facility] Heart transplant status [place] [address] [facility] [address] 08/29/2020 12:00:00 AM EDT eCW1 ([facility]) Outpatient Attender: DERRICK Forresterrer: DERRICK ARRIAGA 07/25/2020 12:00:00 AM EDT - 07/26/2020 12:00:00 AM EDT Heart transplant status [facility] Heart transplant status [place] [address] [facility] [address] 07/20/2020 12:00:00 AM EDT eCW1 ([facility]) Outpatient Attender: DERRICK Forresterrer: DERRICK ARRIAGA 07/11/2020 12:00:00 AM EDT - 07/12/2020 12:00:00 AM EDT Heart transplant status [facility] Heart transplant status [place] [address] [facility] [address] 07/04/2020 12:00:00 AM EST eCW1 ([facility]) Unknown [address] [facility] [address] 06/20/2020 12:00:00 AM EST eCW1 ([facility]) Office Visit, Est Pt., Level 4 PC [address] [place] [address] 06/20/2020 12:00:00 AM EST eCW1 ([facility]) Outpatient Attender: DERRICK Forresterrer: DERRICK ARRIAGA 05/10/2020 12:00:00 AM EST - 05/11/2020 12:00:00 AM EST no dx [facility] no dx Outpatient Attender: DERRICK Gallegoser: DERRICK ARRIAGA 04/25/2020 12:00:00 AM EST - 04/25/2020 11:59:00 PM EST Heart transplant status [facility] Heart transplant status Unknown [address] [facility] [address] 04/15/2020 12:00:00 AM EST eCW1 ([facility]) Office Visit, Est Pt., Level 4 PC [address] [place] [address] 04/04/2020 12:00:00 AM EST eCW1 ([facility]) Outpatient [address] [facility] [address] 03/30/2020 12:00:00 AM EST eCW1 ([facility]) Outpatient Attender: Ysabel Cardona MD Main office - [place] 03/29/2020 12:45:00 PM EST [facility] ([facility]) Outpatient Attender: NONA REY MDReferrer: NONA REY MD 03/29/2020 12:00:00 AM EST - 03/30/2020 12:00:00 AM EST Heart transplant status [facility] Heart transplant status Outpatient Attender: DERRICK HODGEReferrer: DERRICK ARRIAGA 02/15/2020 12:00:00 AM EDT - 02/16/2020 12:00:00 AM EDT Immunodeficiency, unspecified [facility] Immunodeficiency, unspecified Outpatient [address] [facility] [address] 02/15/2020 12:00:00 AM EDT eCW1 ([facility]) Immunizations Vaccine Date Status Description Data Source(s) COVID-19 VACC, MRNA(PFIZER)/PF 01/10/2021 12:00:00 AM EDT completed [facility] COVID-19 VACCINE Pfizer 01/10/2021 12:00:00 AM EDT completed [facility] Vaccine Series Complete: YESThis Data wa s Submitted to [facility] Via [facility]. COVID-19 dose #2 given elsewhere Unspecified 07/17/2020 10:0 5:00 AM EDT completed eCW1 ([facility]) COVID-19 dose #2 given elsewhere Unspecified 07/17/2020 10:0 5:00 AM EDT completed eCW1 ([facility]) COVID-19 dose #2 given elsewhere Unspecified 07/17/2020 10:0 5:00 AM EDT completed eCW1 ([facility]) COVID-19 dose #2 given elsewhere Unspecified 07/17/2020 10:0 5:00 AM EDT completed eCW1 ([facility]) COVID-19 dose #2 given elsewhere Unspecified 07/17/2020 10:0 5:00 AM EDT completed eCW1 ([facility]) COVID-19 dose #2 given elsewhere Unspecified 07/17/2020 10:0 5:00 AM EDT completed eCW1 ([facility]) COVID-19 dose #2 given elsewhere Unspecified 07/17/2020 10:0 5:00 AM EDT completed eCW1 ([facility]) COVID-19 dose #2 given elsewhere Unspecified 07/17/2020 10:0 5:00 AM EDT completed eCW1 ([facility]) COVID-19 dose #2 given elsewhere Unspecified 07/17/2020 10:0 5:00 AM EDT completed eCW1 ([facility]) COVID-19 dose #2 given elsewhere Unspecified 07/17/2020 10:0 5:00 AM EDT completed eCW1 ([facility]) COVID-19 dose #2 given elsewhere Unspecified 07/17/2020 10:0 5:00 AM EDT completed eCW1 ([facility]) COVID-19 dose #2 given elsewhere Unspecified 07/17/2020 10:0 5:00 AM EDT completed eCW1 ([facility]) COVID-19 dose #2 given elsewhere Unspecified 07/17/2020 10:0 5:00 AM EDT completed eCW1 ([facility]) COVID-19 dose #2 given elsewhere Unspecified 07/17/2020 10:0 5:00 AM EDT completed eCW1 ([facility]) COVID-19 dose #2 given elsewhere Unspecified 07/17/2020 10:0 5:00 AM EDT completed eCW1 ([facility]) COVID-19 VACCINE Pfizer 07/17/2020 12:00:00 AM EDT completed [facility] Vaccine Series Complete: YESThis Data wa s Submitted to [facility] Via [facility]. COVID-19 dose #1 given elsewhere Unspecified 06/26/2020 10:0 4:00 AM EST completed eCW1 ([facility]) COVID-19 dose #1 given elsewhere Unspecified 06/26/2020 10:0 4:00 AM EST completed eCW1 ([facility]) COVID-19 dose #1 given elsewhere Unspecified 06/26/2020 10:0 4:00 AM EST completed eCW1 ([facility]) COVID-19 dose #1 given elsewhere Unspecified 06/26/2020 10:0 4:00 AM EST completed eCW1 ([facility]) COVID-19 dose #1 given elsewhere Unspecified 06/26/2020 10:0 4:00 AM EST completed eCW1 ([facility]) COVID-19 dose #1 given elsewhere Unspecified 06/26/2020 10:0 4:00 AM EST completed eCW1 ([facility]) COVID-19 dose #1 given elsewhere Unspecified 06/26/2020 10:0 4:00 AM EST completed eCW1 ([facility]) COVID-19 dose #1 given elsewhere Unspecified 06/26/2020 10:0 4:00 AM EST completed eCW1 ([facility]) COVID-19 dose #1 given elsewhere Unspecified 06/26/2020 10:0 4:00 AM EST completed eCW1 ([facility]) COVID-19 dose #1 given elsewhere Unspecified 06/26/2020 10:0 4:00 AM EST completed eCW1 ([facility]) COVID-19 dose #1 given elsewhere Unspecified 06/26/2020 10:0 4:00 AM EST completed eCW1 ([facility]) COVID-19 dose #1 given elsewhere Unspecified 06/26/2020 10:0 4:00 AM EST completed eCW1 ([facility]) COVID-19 dose #1 given elsewhere Unspecified 06/26/2020 10:0 4:00 AM EST completed eCW1 ([facility]) COVID-19 dose #1 given elsewhere Unspecified 06/26/2020 10:0 4:00 AM EST completed eCW1 ([facility]) COVID-19 dose #1 given elsewhere Unspecified 06/26/2020 10:0 4:00 AM EST completed eCW1 ([facility]) COVID-19 VACCINE Pfizer 06/26/2020 12:00:00 AM EST completed [facility] Vaccine Series Complete: NOThis Data was Submitted to [facility] Via [employer]. Medications Medication Brand Name Start Date Product Form Dose Route Admi nistrative Instructions Pharmacy Instructions Status Indications Reaction Description Data Source(s) Alprazolam 0.5 MG Oral Tablet ALPRAZOLAM 03/10/2021 12:00:00 AM EST ta blet 60 TAKE 1TAB.BY MOUTH 2X/DAY NEEDED FOR ANXIETY AND INSOMNIA MAX=2TABS/DAY TAKE 1TAB.BY MOUTH 2X/DAY NEEDED FOR ANXIETY AND INSOMNIA MAX=2TABS/DAY SOLD: 03/11/2021 [facility] 1 mg 02/11/2021 12:00:00 AM EDT tablet 30 TAKE ONE TABLET BY MOUTH EVERY DAY TAKE ONE TABLET BY MOUTH EVERY DAY SOLD: 02/12/2021 [facility] 1 mg 02/11/2021 12:00:00 AM EDT tablet 30 TAKE ONE TABLET BY MOUTH EVERY DAY TAKE ONE TABLET BY MOUTH EVERY DAY SOLD: 03/22/2021 [facility] 25 mg 01/11/2021 12:00:00 AM EDT tablet extended release 24 hr 15 TAKE ONE- HALF TABLET BY MOUTH EVERY DAY, NO CRUSHING OR CHEWING TAKE ONE-HALF TABLET BY MOUTH EVERY DAY, NO CRUSHING OR CHEWING SOLD: 01/14/2021 [facility] 25 mg 01/11/2021 12:00:00 AM EDT tablet extended release 24 hr 15 TAKE ONE- HALF TABLET BY MOUTH EVERY DAY, NO CRUSHING OR CHEWING TAKE ONE-HALF TABLET BY MOUTH EVERY DAY, NO CRUSHING OR CHEWING SOLD: 03/22/2021 [facility] 25 mg 01/11/2021 12:00:00 AM EDT tablet extended release 24 hr 15 TAKE ONE- HALF TABLET BY MOUTH EVERY DAY, NO CRUSHING OR CHEWING TAKE ONE-HALF TABLET BY MOUTH EVERY DAY, NO CRUSHING OR CHEWING SOLD: 02/12/2021 [facility] Trazodone Hydrochloride 100 MG Oral Tablet TRAZODONE HCL 12/28/2020 12:00:00 AM EDT tablet 60 TAKE 2 TABLETS B Y MOUTH EVERY NIGHT AT BEDTIME MAXIMUM DAILY DOSE = 2 TAKE 2 TABLETS BY MOUTH EVERY NIGHT AT BEDTIME MAXIMUM DAILY DOSE = 2 SOLD: 12/29/2020 [facility] Trazodone Hydrochloride 100 MG Oral Tablet TRAZODONE HCL 12/28/2020 12:00:00 AM EDT tablet 60 TAKE 2 TABLETS B Y MOUTH EVERY NIGHT AT BEDTIME MAXIMUM DAILY DOSE = 2 TAKE 2 TABLETS BY MOUTH EVERY NIGHT AT BEDTIME MAXIMUM DAILY DOSE = 2 SOLD: 02/02/2021 [facility] Trazodone Hydrochloride 100 MG Oral Tablet TRAZODONE HCL 12/28/2020 12:00:00 AM EDT tablet 60 TAKE 2 TABLETS B Y MOUTH EVERY NIGHT AT BEDTIME MAXIMUM DAILY DOSE = 2 TAKE 2 TABLETS BY MOUTH EVERY NIGHT AT BEDTIME MAXIMUM DAILY DOSE = 2 SOLD: 03/04/2021 [facility] Alprazolam 0.5 MG Oral Tablet ALPRAZOLAM 12/27/2020 12:00:00 AM EDT ta blet 60 TAKE 1 TABLET BY MOUTH 2X/DAY NEEDED FOR ANXIETY & INSOMNIA MAX=2TABS/DAY TAKE 1 TABLET BY MOUTH 2X/DAY NEEDED FOR ANXIETY & INSOMNIA MAX=2TABS/DAY SOLD: 12/29/2020 [facility] 2.5 mg 12/08/2020 12:00:00 AM EDT tablet 48 TAKE 4 TABLETS BY MOUTH ONCE WEEKLY TAKE 4 TABLETS BY MOUTH ONCE WEEKLY SOLD: 03/04/2021 [facility] 2.5 mg 12/08/2020 12:00:00 AM EDT tablet 48 TAKE 4 TABLETS BY MOUTH ONCE WEEKLY TAKE 4 TABLETS BY MOUTH ONCE WEEKLY SOLD: 12/09/2020 [facility] famciclovir 500 MG Oral Tablet Famciclovir 500 MG Famciclovi r 500 MG 11/18/2020 12:00:00 AM EDT 1.0 {tablet} active Fa mciclovir 500 MG eCW1 ([facility]) famciclovir 500 MG Oral Tablet Famciclovir 500 MG Famciclovi r 500 MG 11/18/2020 12:00:00 AM EDT 1.0 {tablet} active Fa mciclovir 500 MG eCW1 ([facility]) famciclovir 500 MG Oral Tablet Famciclovir 500 MG Famciclovi r 500 MG 11/18/2020 12:00:00 AM EDT 1.0 {tablet} active eCW1 ([facility]) famciclovir 500 MG Oral Tablet Famciclovir 500 MG Famciclovi r 500 MG 11/18/2020 12:00:00 AM EDT 1.0 {tablet} active Fa mciclovir 500 MG eCW1 ([facility]) famciclovir 500 MG Oral Tablet Famciclovir 500 MG Famciclovi r 500 MG 11/18/2020 12:00:00 AM EDT 1.0 {tablet} active Fa mciclovir 500 MG eCW1 ([facility]) famciclovir 500 MG Oral Tablet Famciclovir 500 MG Famciclovi r 500 MG 11/18/2020 12:00:00 AM EDT 1.0 {tablet} active Fa mciclovir 500 MG eCW1 ([facility]) 500 mg 11/18/2020 12:00:00 AM EDT tablet 21 TAKE ONE TABLET BY MOUTH THREE TIMES A DAY FOR 7 DAYS TAKE ONE TABLET BY MOUTH THREE TIMES A DAY FOR 7 DAYS SOLD: 11/25/2020 [facility] famciclovir 500 MG Oral Tablet Famciclovir 500 MG Famciclovi r 500 MG 11/18/2020 12:00:00 AM EDT 1.0 {tablet} active Fa mciclovir 500 MG eCW1 ([facility]) famciclovir 500 MG Oral Tablet Famciclovir 500 MG Famciclovi r 500 MG 11/18/2020 12:00:00 AM EDT 1.0 {tablet} active Fa mciclovir 500 MG eCW1 ([facility]) famciclovir 500 MG Oral Tablet Famciclovir 500 MG Famciclovi r 500 MG 11/18/2020 12:00:00 AM EDT 1.0 {tablet} active Fa mciclovir 500 MG eCW1 ([facility]) 20 mg 10/29/2020 12:00:00 AM EDT tablet 20 TAKE 3 TABLETS BY MOUTH ONCE DAILY FOR 3 DAYS;2/DAY X4DAYS;1/DAY X3DAYS TAKE 3 TABLETS BY MOUTH ONCE DAILY FOR 3 DAYS;2/DAY X4DAYS;1/DAY X3DAYS SOLD: 10/29/2020 [facility] Alprazolam 0.5 MG Oral Tablet ALPRAZOLAM 10/13/2020 12:00:00 AM EDT ta blet 60 TAKE 1TAB.BY MOUTH TWICE A DAY NEEDED FOR ANXIETY & INSOMNIA MAX=2TABS/DAY TAKE 1TAB.BY MOUTH TWICE A DAY NEEDED FOR ANXIETY & INSOMNIA MAX=2TABS/DAY SOLD: 10/15/2020 [facility] 2.5 mg 10/05/2020 12:00:00 AM EDT tablet 16 TAKE 4 TABLETS BY MOUTH DIRECTED ONCE A WEEK TAKE 4 TABLETS BY MOUTH DIRECTED ONCE A WEEK SOLD: 10/08/2020 [facility] 40 mg 09/27/2020 12:00:00 AM EDT tablet 90 TAKE ONE TABLET BY MOUTH EVERY DAY WITH DINNER TAKE ONE TABLET BY MOUTH EVERY DAY WITH DINNER SOLD: [facility] 40 mg 09/27/2020 12:00:00 AM EDT tablet 90 TAKE ONE TABLET BY MOUTH EVERY DAY WITH DINNER TAKE ONE TABLET BY MOUTH EVERY DAY WITH DINNER SOLD: 021 [facility] Trazodone Hydrochloride 100 MG Oral Tablet TRAZODONE HCL 09/24/2020 12:00:00 AM EDT tablet 60 TAKE 2 TABLETS B Y MOUTH EVERY NIGHT AT BEDTIME MAXIMUM DAILY DOSE = 2 TAKE 2 TABLETS BY MOUTH EVERY NIGHT AT BEDTIME MAXIMUM DAILY DOSE = 2 SOLD: 10/29/2020 [facility] Trazodone Hydrochloride 100 MG Oral Tablet TRAZODONE HCL 09/24/2020 12:00:00 AM EDT tablet 60 TAKE 2 TABLETS B Y MOUTH EVERY NIGHT AT BEDTIME MAXIMUM DAILY DOSE = 2 TAKE 2 TABLETS BY MOUTH EVERY NIGHT AT BEDTIME MAXIMUM DAILY DOSE = 2 SOLD: 09/26/2020 [facility] Trazodone Hydrochloride 100 MG Oral Tablet TRAZODONE HCL 09/24/2020 12:00:00 AM EDT tablet 60 TAKE 2 TABLETS B Y MOUTH EVERY NIGHT AT BEDTIME MAXIMUM DAILY DOSE = 2 TAKE 2 TABLETS BY MOUTH EVERY NIGHT AT BEDTIME MAXIMUM DAILY DOSE = 2 SOLD: 11/30/2020 [facility] 160-4.5 mcg/actuation 09/09/2020 12:00:00 AM EDT HFA aerosol inhaler 10 INHALE TWO PUFFS BY MOUTH TWICE A DAY INHALE TWO PUFFS BY MOUTH TWICE A DAY SOLD: 11/25/2020 [facility] 160-4.5 mcg/actuation 09/09/2020 12:00:00 AM EDT HFA aerosol inhaler 10 INHALE TWO PUFFS BY MOUTH TWICE A DAY INHALE TWO PUFFS BY MOUTH TWICE A DAY SOLD: 09/21/2020 [facility] 160-4.5 mcg/actuation 09/09/2020 12:00:00 AM EDT HFA aerosol inhaler 10 INHALE TWO PUFFS BY MOUTH TWICE A DAY INHALE TWO PUFFS BY MOUTH TWICE A DAY SOLD: 10/22/2020 [facility] 300-15 mg 08/03/2020 12:00:00 AM EDT tablet 20 TAKE ONE TABLET BY MOUTH EVERY 4 HOURS NEEDED FOR PAIN MAXIMUM DAILY DOSE = 6 TABLETS TAKE ONE TABLET BY MOUTH EVERY 4 HOURS NEEDED FOR PAIN MAXIMUM DAILY DOSE = 6 TABLETS SOLD: 08/03/2020 [facility] Alprazolam 0.5 MG Oral Tablet ALPRAZOLAM 07/30/2020 12:00:00 AM EDT ta blet 60 TAKE 1 TABLET BY MOUTH TWICE A DAY NEEDED FOR ANXIETY & INSONMIA MAXIMUM DAILY DOSE = 2 TABLETS TAKE 1 TABLET BY MOUTH TWICE A DAY NE EDED FOR ANXIETY & INSONMIA MAXIMUM DAILY DOSE = 2 TABLETS SOLD: 08/01/2020 [facility] pantoprazole 40 MG Delayed Release Oral Tablet PANTOPRAZOLE SODIUM 07/25/2020 12:00:00 AM EDT tablet,delayed release (DR/EC) 30 T CHET 1 TABLET BY MOUTH DAILY (SWALLOW WHOLE, NO CHEWING/BREAKING/CRUSHING) TAKE 1 TABLET BY MOUTH DAILY (SWALLOW WHOLE, NO CHEWING/BREAKING/CRUSHING) SOLD: 10/29/2020 [facility] pantoprazole 40 MG Delayed Release Oral Tablet PANTOPRAZOLE SODIUM 07/25/2020 12:00:00 AM EDT tablet,delayed release (DR/EC) 30 T CHET 1 TABLET BY MOUTH DAILY (SWALLOW WHOLE, NO CHEWING/BREAKING/CRUSHING) TAKE 1 TABLET BY MOUTH DAILY (SWALLOW WHOLE, NO CHEWING/BREAKING/CRUSHING) SOLD: 03/04/2021 [facility] pantoprazole 40 MG Delayed Release Oral Tablet PANTOPRAZOLE SODIUM 07/25/2020 12:00:00 AM EDT tablet,delayed release (DR/EC) 30 T CHET 1 TABLET BY MOUTH DAILY (SWALLOW WHOLE, NO CHEWING/BREAKING/CRUSHING) TAKE 1 TABLET BY MOUTH DAILY (SWALLOW WHOLE, NO CHEWING/BREAKING/CRUSHING) SOLD: 02/02/2021 [facility] pantoprazole 40 MG Delayed Release Oral Tablet PANTOPRAZOLE SODIUM 07/25/2020 12:00:00 AM EDT tablet,delayed release (DR/EC) 30 T CHET 1 TABLET BY MOUTH DAILY (SWALLOW WHOLE, NO CHEWING/BREAKING/CRUSHING) TAKE 1 TABLET BY MOUTH DAILY (SWALLOW WHOLE, NO CHEWING/BREAKING/CRUSHING) SOLD: 09/26/2020 [facility] pantoprazole 40 MG Delayed Release Oral Tablet PANTOPRAZOLE SODIUM 07/25/2020 12:00:00 AM EDT tablet,delayed release (DR/EC) 30 T CHET 1 TABLET BY MOUTH DAILY (SWALLOW WHOLE, NO CHEWING/BREAKING/CRUSHING) TAKE 1 TABLET BY MOUTH DAILY (SWALLOW WHOLE, NO CHEWING/BREAKING/CRUSHING) SOLD: 12/29/2020 [facility] pantoprazole 40 MG Delayed Release Oral Tablet PANTOPRAZOLE SODIUM 07/25/2020 12:00:00 AM EDT tablet,delayed release (DR/EC) 30 T CHET 1 TABLET BY MOUTH DAILY (SWALLOW WHOLE, NO CHEWING/BREAKING/CRUSHING) TAKE 1 TABLET BY MOUTH DAILY (SWALLOW WHOLE, NO CHEWING/BREAKING/CRUSHING) SOLD: 08/27/2020 [facility] pantoprazole 40 MG Delayed Release Oral Tablet PANTOPRAZOLE SODIUM 07/25/2020 12:00:00 AM EDT tablet,delayed release (DR/EC) 30 T CHET 1 TABLET BY MOUTH DAILY (SWALLOW WHOLE, NO CHEWING/BREAKING/CRUSHING) TAKE 1 TABLET BY MOUTH DAILY (SWALLOW WHOLE, NO CHEWING/BREAKING/CRUSHING) SOLD: 11/30/2020 [facility] pantoprazole 40 MG Delayed Release Oral Tablet PANTOPRAZOLE SODIUM 07/25/2020 12:00:00 AM EDT tablet,delayed release (DR/EC) 30 T CHET 1 TABLET BY MOUTH DAILY (SWALLOW WHOLE, NO CHEWING/BREAKING/CRUSHING) TAKE 1 TABLET BY MOUTH DAILY (SWALLOW WHOLE, NO CHEWING/BREAKING/CRUSHING) SOLD: 07/26/2020 [facility] Hydroxychloroquine Sulfate 200 MG Oral Tablet HYDROXYCHLOROQ UINE SULFATE 07/22/2020 12:00:00 AM EDT tablet 60 TAKE ONE TABLE T BY MOUTH TWICE A DAY TAKE ONE TABLET BY MOUTH TWICE A DAY SOLD: 10/29/2020 [facility] Hydroxychloroquine Sulfate 200 MG Oral Tablet HYDROXYCHLOROQ UINE SULFATE 07/22/2020 12:00:00 AM EDT tablet 180 TAKE ONE TABLE T BY MOUTH TWICE A DAY TAKE ONE TABLET BY MOUTH TWICE A DAY SOLD: 07/26/2020 [facility] Hydroxychloroquine Sulfate 200 MG Oral Tablet HYDROXYCHLOROQ UINE SULFATE 07/22/2020 12:00:00 AM EDT tablet 60 TAKE ONE TABLE T BY MOUTH TWICE A DAY TAKE ONE TABLET BY MOUTH TWICE A DAY SOLD: 11/30/2020 [facility] Hydroxychloroquine Sulfate 200 MG Oral Tablet HYDROXYCHLOROQ UINE SULFATE 07/22/2020 12:00:00 AM EDT tablet 60 TAKE ONE TABLE T BY MOUTH TWICE A DAY TAKE ONE TABLET BY MOUTH TWICE A DAY SOLD: 12/29/2020 [facility] 2.5 mg 07/04/2020 12:00:00 AM EST tablet 16 TAKE FOUR TABLETS BY MOUTH DIRECTED ONCE WEEKLY TAKE FOUR TABLETS BY MOUTH DIRECTED ONCE WEEKLY DWAYNE [facility] Methotrexate 2.5 MG Oral Tablet Methotrexate Sodium 2. 5 MG Methotrexate Sodium 2.5 MG 07/04/2020 12:00:00 AM EST active Methotrexate Sodium 2.5 MG eCW1 ([facility]) Folic Acid 1 MG Oral Tablet Folic Acid 1 MG 07/04/2020 12:00:00 AM EST 1.0 {tablet} active Folic Acid 1 MG eCW1 ([facility]) Folic Acid 1 MG Oral Tablet Folic Acid 1 MG 07/04/2020 12:00:00 AM EST 1.0 {tablet} active Folic Acid 1 MG eCW1 ([facility]) 1 mg 07/04/2020 12:00:00 AM EST tablet 30 TAKE ONE TABLET BY MOUTH EVERY DAY TAKE ONE TABLET BY MOUTH EVERY DAY SOLD: 11/10/2020 [facility] 1 mg 07/04/2020 12:00:00 AM EST tablet 30 TAKE ONE TABLET BY MOUTH EVERY DAY TAKE ONE TABLET BY MOUTH EVERY DAY SOLD: 07/06/2020 [facility] Folic Acid 1 MG Oral Tablet Folic Acid 1 MG 07/04/2020 12:00:00 AM EST 1.0 {tablet} active Folic Acid 1 MG eCW1 ([facility]) Methotrexate 2.5 MG Oral Tablet Methotrexate Sodium 2. 5 MG Methotrexate Sodium 2.5 MG 07/04/2020 12:00:00 AM EST 4.0 {tablets} acti ve Methotrexate Sodium 2.5 MG eCW1 ([facility]) Methotrexate 2.5 MG Oral Tablet Methotrexate Sodium 2. 5 MG Methotrexate Sodium 2.5 MG 07/04/2020 12:00:00 AM EST active Methotrexate Sodium 2.5 MG eCW1 ([facility]) Methotrexate 2.5 MG Oral Tablet Methotrexate Sodium 2. 5 MG Methotrexate Sodium 2.5 MG 07/04/2020 12:00:00 AM EST active Methotrexate Sodium 2.5 MG eCW1 ([facility]) Folic Acid 1 MG Oral Tablet Folic Acid 1 MG 07/04/2020 12:00:00 AM EST 1.0 {tablet} active Folic Acid 1 MG eCW1 ([facility]) Folic Acid 1 MG Oral Tablet Folic Acid 1 MG 07/04/2020 12:00:00 AM EST 1.0 {tablet} active Folic Acid 1 MG eCW1 ([facility]) Methotrexate 2.5 MG Oral Tablet Methotrexate Sodium 2. 5 MG Methotrexate Sodium 2.5 MG 07/04/2020 12:00:00 AM EST 4.0 {tablets} acti ve Methotrexate Sodium 2.5 MG eCW1 ([facility]) Folic Acid 1 MG Oral Tablet Folic Acid 1 MG 07/04/2020 12:00:00 AM EST 1.0 {tablet} active Folic Acid 1 MG eCW1 ([facility]) Folic Acid 1 MG Oral Tablet Folic Acid 1 MG 07/04/2020 12:00:00 AM EST 1.0 {tablet} active Folic Acid 1 MG eCW1 ([facility]) Methotrexate 2.5 MG Oral Tablet Methotrexate Sodium 2. 5 MG Methotrexate Sodium 2.5 MG 07/04/2020 12:00:00 AM EST active Methotrexate Sodium 2.5 MG eCW1 ([facility]) 1 mg 07/04/2020 12:00:00 AM EST tablet 30 TAKE ONE TABLET BY MOUTH EVERY DAY TAKE ONE TABLET BY MOUTH EVERY DAY SOLD: 10/08/2020 [facility] Methotrexate 2.5 MG Oral Tablet Methotrexate Sodium 2. 5 MG Methotrexate Sodium 2.5 MG 07/04/2020 12:00:00 AM EST 4.0 {tablets} acti ve Methotrexate Sodium 2.5 MG eCW1 ([facility]) Methotrexate 2.5 MG Oral Tablet Methotrexate Sodium 2. 5 MG Methotrexate Sodium 2.5 MG 07/04/2020 12:00:00 AM EST 4.0 {tablets} acti ve Methotrexate Sodium 2.5 MG eCW1 ([facility]) Methotrexate 2.5 MG Oral Tablet Methotrexate Sodium 2. 5 MG Methotrexate Sodium 2.5 MG 07/04/2020 12:00:00 AM EST 4.0 {tablets} acti ve Methotrexate Sodium 2.5 MG eCW1 ([facility]) Methotrexate 2.5 MG Oral Tablet Methotrexate Sodium 2. 5 MG Methotrexate Sodium 2.5 MG 07/04/2020 12:00:00 AM EST active eCW1 ([facility]) Folic Acid 1 MG Oral Tablet Folic Acid 1 MG 07/04/2020 12:00:00 AM EST 1.0 {tablet} active Folic Acid 1 MG eCW1 ([facility]) Methotrexate 2.5 MG Oral Tablet Methotrexate Sodium 2. 5 MG Methotrexate Sodium 2.5 MG 07/04/2020 12:00:00 AM EST active Methotrexate Sodium 2.5 MG eCW1 ([facility]) Folic Acid 1 MG Oral Tablet Folic Acid 1 MG 07/04/2020 12:00:00 AM EST 1.0 {tablet} active Folic Acid 1 MG eCW1 ([facility]) Folic Acid 1 MG Oral Tablet Folic Acid 1 MG 07/04/2020 12:00:00 AM EST 1.0 {tablet} active Folic Acid 1 MG eCW1 ([facility]) 1 mg 07/04/2020 12:00:00 AM EST tablet 30 TAKE ONE TABLET BY MOUTH EVERY DAY TAKE ONE TABLET BY MOUTH EVERY DAY SOLD: 09/08/2020 [facility] 1 mg 07/04/2020 12:00:00 AM EST tablet 30 TAKE ONE TABLET BY MOUTH EVERY DAY TAKE ONE TABLET BY MOUTH EVERY DAY SOLD: 08/07/2020 [facility] Methotrexate 2.5 MG Oral Tablet Methotrexate Sodium 2. 5 MG Methotrexate Sodium 2.5 MG 07/04/2020 12:00:00 AM EST 4.0 {tablets} acti ve Methotrexate Sodium 2.5 MG eCW1 ([facility]) Folic Acid 1 MG Oral Tablet Folic Acid 1 MG 07/04/2020 12:00:00 AM EST 1.0 {tablet} active Folic Acid 1 MG eCW1 ([facility]) Methotrexate 2.5 MG Oral Tablet Methotrexate Sodium 2. 5 MG Methotrexate Sodium 2.5 MG 07/04/2020 12:00:00 AM EST active Methotrexate Sodium 2.5 MG eCW1 ([facility]) Folic Acid 1 MG Oral Tablet Folic Acid 1 MG 07/04/2020 12:00:00 AM EST 1.0 {tablet} active Folic Acid 1 MG eCW1 ([facility]) Folic Acid 1 MG Oral Tablet Folic Acid 1 MG 07/04/2020 12:00:00 AM EST 1.0 {tablet} active eCW1 ([facility]) 1 mg 07/04/2020 12:00:00 AM EST tablet 30 TAKE ONE TABLET BY MOUTH EVERY DAY TAKE ONE TABLET BY MOUTH EVERY DAY SOLD: 12/09/2020 [facility] 2.5 mg 07/04/2020 12:00:00 AM EST tablet 16 TAKE FOUR TABLETS BY MOUTH DIRECTED ONCE WEEKLY TAKE FOUR TABLETS BY MOUTH DIRECTED ONCE WEEKLY DWAYNE [facility] 2.5 mg 07/04/2020 12:00:00 AM EST tablet 16 TAKE FOUR TABLETS BY MOUTH DIRECTED ONCE WEEKLY TAKE FOUR TABLETS BY MOUTH DIRECTED ONCE WEEKLY DWAYNE [facility] Methotrexate 2.5 MG Oral Tablet Methotrexate Sodium 2. 5 MG Methotrexate Sodium 2.5 MG 07/04/2020 12:00:00 AM EST 4.0 {tablets} acti ve Methotrexate Sodium 2.5 MG eCW1 ([facility]) Folic Acid 1 MG Oral Tablet Folic Acid 1 MG 07/04/2020 12:00:00 AM EST 1.0 {tablet} active Folic Acid 1 MG eCW1 ([facility]) Folic Acid 1 MG Oral Tablet Folic Acid 1 MG 07/04/2020 12:00:00 AM EST 1.0 {tablet} active Folic Acid 1 MG eCW1 ([facility]) Methotrexate 2.5 MG Oral Tablet Methotrexate Sodium 2. 5 MG Methotrexate Sodium 2.5 MG 07/04/2020 12:00:00 AM EST active Methotrexate Sodium 2.5 MG eCW1 ([facility]) Folic Acid 1 MG Oral Tablet Folic Acid 1 MG 07/04/2020 12:00:00 AM EST 1.0 {tablet} active Folic Acid 1 MG eCW1 ([facility]) Methotrexate 2.5 MG Oral Tablet Methotrexate Sodium 2. 5 MG Methotrexate Sodium 2.5 MG 07/04/2020 12:00:00 AM EST active Methotrexate Sodium 2.5 MG eCW1 ([facility]) 5 mg 06/14/2020 12:00:00 AM EST tablet 45 TAKE ONE AND ONE-HALF TABLETS BY MOUTH EVERY DAY TAKE ONE AND ONE-HALF TABLETS BY MOUTH EVERY DAY SOLD: 06/19/2020 [facility] 5 mg 06/14/2020 12:00:00 AM EST tablet 45 TAKE ONE AND ONE-HALF TABLETS BY MOUTH EVERY DAY TAKE ONE AND ONE-HALF TABLETS BY MOUTH EVERY DAY SOLD: 11/25/2020 [facility] 50 mg 06/14/2020 12:00:00 AM EST tablet 30 TAKE 1 TABLET BY MOUTH ONCE DAILY TAKE 1 TABLET BY MOUTH ONCE DAILY SOLD: 11/10/2020 [facility] 5 mg 06/14/2020 12:00:00 AM EST tablet 45 TAKE ONE AND ONE-HALF TABLETS BY MOUTH EVERY DAY TAKE ONE AND ONE-HALF TABLETS BY MOUTH EVERY DAY SOLD: 10/22/2020 [facility] 50 mg 06/14/2020 12:00:00 AM EST tablet 30 TAKE 1 TABLET BY MOUTH ONCE DAILY TAKE 1 TABLET BY MOUTH ONCE DAILY SOLD: 08/09/2020 [facility] 50 mg 06/14/2020 12:00:00 AM EST tablet 30 TAKE 1 TABLET BY MOUTH ONCE DAILY TAKE 1 TABLET BY MOUTH ONCE DAILY SOLD: 03/11/2021 [facility] 50 mg 06/14/2020 12:00:00 AM EST tablet 30 TAKE 1 TABLET BY MOUTH ONCE DAILY TAKE 1 TABLET BY MOUTH ONCE DAILY SOLD: 12/09/2020 [facility] 5 mg 06/14/2020 12:00:00 AM EST tablet 45 TAKE ONE AND ONE-HALF TABLETS BY MOUTH EVERY DAY TAKE ONE AND ONE-HALF TABLETS BY MOUTH EVERY DAY SOLD: 08/09/2020 [facility] 5 mg 06/14/2020 12:00:00 AM EST tablet 45 TAKE ONE AND ONE-HALF TABLETS BY MOUTH EVERY DAY TAKE ONE AND ONE-HALF TABLETS BY MOUTH EVERY DAY SOLD: 01/14/2021 [facility] 5 mg 06/14/2020 12:00:00 AM EST tablet 45 TAKE ONE AND ONE-HALF TABLETS BY MOUTH EVERY DAY TAKE ONE AND ONE-HALF TABLETS BY MOUTH EVERY DAY SOLD: 03/01/2021 [facility] 50 mg 06/14/2020 12:00:00 AM EST tablet 30 TAKE 1 TABLET BY MOUTH ONCE DAILY TAKE 1 TABLET BY MOUTH ONCE DAILY SOLD: 01/07/2021 [facility] 50 mg 06/14/2020 12:00:00 AM EST tablet 30 TAKE 1 TABLET BY MOUTH ONCE DAILY TAKE 1 TABLET BY MOUTH ONCE DAILY SOLD: 09/08/2020 [facility] 5 mg 06/14/2020 12:00:00 AM EST tablet 45 TAKE ONE AND ONE-HALF TABLETS BY MOUTH EVERY DAY TAKE ONE AND ONE-HALF TABLETS BY MOUTH EVERY DAY SOLD: 08/27/2020 [facility] 50 mg 06/14/2020 12:00:00 AM EST tablet 30 TAKE 1 TABLET BY MOUTH ONCE DAILY TAKE 1 TABLET BY MOUTH ONCE DAILY SOLD: 06/19/2020 [facility] 50 mg 06/14/2020 12:00:00 AM EST tablet 30 TAKE 1 TABLET BY MOUTH ONCE DAILY TAKE 1 TABLET BY MOUTH ONCE DAILY SOLD: 10/08/2020 [facility] 50 mg 06/14/2020 12:00:00 AM EST tablet 30 TAKE 1 TABLET BY MOUTH ONCE DAILY TAKE 1 TABLET BY MOUTH ONCE DAILY SOLD: 07/21/2020 [facility] 50 mg 06/14/2020 12:00:00 AM EST tablet 30 TAKE 1 TABLET BY MOUTH ONCE DAILY TAKE 1 TABLET BY MOUTH ONCE DAILY SOLD: 02/09/2021 [facility] 25 mg 06/10/2020 12:00:00 AM EST tablet extended release 24 hr 15 TAKE 1/2 TABLET (12.5 MG) BY MOUTH ONCE DAILY - DO NOT CRUSH OR CHEW, MAY BE DIVIDED TAKE 1/2 TABLET (12.5 MG) BY MOUTH ONCE DAILY - DO NOT CRUSH OR CHEW, MAY BE DIVIDED SOLD: 09/08/2020 [facility] 25 mg 06/10/2020 12:00:00 AM EST tablet extended release 24 hr 15 TAKE 1/2 TABLET (12.5 MG) BY MOUTH ONCE DAILY - DO NOT CRUSH OR CHEW, MAY BE DIVIDED TAKE 1/2 TABLET (12.5 MG) BY MOUTH ONCE DAILY - DO NOT CRUSH OR CHEW, MAY BE DIVIDED SOLD: 06/11/2020 [facility] 25 mg 06/10/2020 12:00:00 AM EST tablet extended release 24 hr 15 TAKE 1/2 TABLET (12.5 MG) BY MOUTH ONCE DAILY - DO NOT CRUSH OR CHEW, MAY BE DIVIDED TAKE 1/2 TABLET (12.5 MG) BY MOUTH ONCE DAILY - DO NOT CRUSH OR CHEW, MAY BE DIVIDED SOLD: 10/08/2020 [facility] 25 mg 06/10/2020 12:00:00 AM EST tablet extended release 24 hr 15 TAKE 1/2 TABLET (12.5 MG) BY MOUTH ONCE DAILY - DO NOT CRUSH OR CHEW, MAY BE DIVIDED TAKE 1/2 TABLET (12.5 MG) BY MOUTH ONCE DAILY - DO NOT CRUSH OR CHEW, MAY BE DIVIDED SOLD: 07/10/2020 [facility] 25 mg 06/10/2020 12:00:00 AM EST tablet extended release 24 hr 15 TAKE 1/2 TABLET (12.5 MG) BY MOUTH ONCE DAILY - DO NOT CRUSH OR CHEW, MAY BE DIVIDED TAKE 1/2 TABLET (12.5 MG) BY MOUTH ONCE DAILY - DO NOT CRUSH OR CHEW, MAY BE DIVIDED SOLD: 11/10/2020 [facility] 25 mg 06/10/2020 12:00:00 AM EST tablet extended release 24 hr 15 TAKE 1/2 TABLET (12.5 MG) BY MOUTH ONCE DAILY - DO NOT CRUSH OR CHEW, MAY BE DIVIDED TAKE 1/2 TABLET (12.5 MG) BY MOUTH ONCE DAILY - DO NOT CRUSH OR CHEW, MAY BE DIVIDED SOLD: 12/09/2020 [facility] 25 mg 06/10/2020 12:00:00 AM EST tablet extended release 24 hr 15 TAKE 1/2 TABLET (12.5 MG) BY MOUTH ONCE DAILY - DO NOT CRUSH OR CHEW, MAY BE DIVIDED TAKE 1/2 TABLET (12.5 MG) BY MOUTH ONCE DAILY - DO NOT CRUSH OR CHEW, MAY BE DIVIDED SOLD: 08/07/2020 [facility] Trazodone Hydrochloride 100 MG Oral Tablet TRAZODONE HCL 05/26/2020 12:00:00 AM EST tablet 60 TAKE TWO TABLETS BY MOUTH NI GHTLY AT BEDTIME TAKE TWO TABLETS BY MOUTH NIGHTLY AT BEDTIME SOLD: 05/26/2020 [facility] Trazodone Hydrochloride 100 MG Oral Tablet TRAZODONE HCL 05/26/2020 12:00:00 AM EST tablet 60 TAKE TWO TABLETS BY MOUTH NI GHTLY AT BEDTIME TAKE TWO TABLETS BY MOUTH NIGHTLY AT BEDTIME SOLD: 06/27/2020 [facility] Trazodone Hydrochloride 100 MG Oral Tablet TRAZODONE HCL 05/26/2020 12:00:00 AM EST tablet 60 TAKE TWO TABLETS BY MOUTH NI GHTLY AT BEDTIME TAKE TWO TABLETS BY MOUTH NIGHTLY AT BEDTIME SOLD: 07/26/2020 [facility] Trazodone Hydrochloride 100 MG Oral Tablet TRAZODONE HCL 05/26/2020 12:00:00 AM EST tablet 60 TAKE TWO TABLETS BY MOUTH NI GHTLY AT BEDTIME TAKE TWO TABLETS BY MOUTH NIGHTLY AT BEDTIME SOLD: 08/27/2020 [facility] Alprazolam 0.5 MG Oral Tablet ALPRAZOLAM 05/25/2020 12:00:00 AM EST ta blet 60 TAKE 1TAB.BY MOUTH TWICE A DAY NEEDED FOR ANXIETY & INSOMNIA MAX=2TABS/DAY TAKE 1TAB.BY MOUTH TWICE A DAY NEEDED FOR ANXIETY & INSOMNIA MAX=2TABS/DAY SOLD: 05/26/2020 [facility] 1.25 mg/3 mL 05/15/2020 12:00:00 AM EST solution for nebuliz ation 150 USE 1 VIAL VIA NEBULIZER EVERY 4 TO 6 HOURS NEEDED FOR WHEEZING USE 1 VIAL VIA NEBULIZER EVERY 4 TO 6 HOURS NEEDED FOR WHEEZING SOLD: 05/15/2020 [facility] 90 mcg/actuation 05/11/2020 12:00:00 AM EST HFA aerosol inha ler 8 INHALE TWO PUFFS BY MOUTH EVERY 4 TO 6 HOURS NEEDED FOR SHORTNESS OF BREATH INHALE TWO PUFFS BY MOUTH EVERY 4 TO 6 HOURS NEEDED FOR SHORTNESS OF BREATH SOLD: 05/12/2020 [facility] 100 mg 05/11/2020 12:00:00 AM EST capsule 20 TAKE ONE CAPSULE BY MOUTH TWICE A DAY TAKE ONE CAPSULE BY MOUTH TWICE A DAY SOLD: 05/12/2020 [facility] 20 mg 05/11/2020 12:00:00 AM EST tablet 10 TAKE 2 TABLETS BY MOUTH DAILY TAKE 2 TABLETS BY MOUTH DAILY SOLD: 05/12/2020 [facility] 20 mEq 04/29/2020 12:00:00 AM EST tablet,ER particles/cry stals 30 TAKE ONE TABLET BY MOUTH EVERY DAY TAKE ONE TABLET BY MOUTH EVERY DAY SOLD: 09/08/2020 [facility] 20 mEq 04/29/2020 12:00:00 AM EST tablet,ER particles/cry stals 30 TAKE ONE TABLET BY MOUTH EVERY DAY TAKE ONE TABLET BY MOUTH EVERY DAY SOLD: 10/08/2020 [facility] 20 mEq 04/29/2020 12:00:00 AM EST tablet,ER particles/cry stals 30 TAKE ONE TABLET BY MOUTH EVERY DAY TAKE ONE TABLET BY MOUTH EVERY DAY SOLD: 07/10/2020 [facility] 20 mEq 04/29/2020 12:00:00 AM EST tablet,ER particles/cry stals 30 TAKE ONE TABLET BY MOUTH EVERY DAY TAKE ONE TABLET BY MOUTH EVERY DAY SOLD: 08/07/2020 [facility] 20 mEq 04/29/2020 12:00:00 AM EST tablet,ER particles/cry stals 30 TAKE ONE TABLET BY MOUTH EVERY DAY TAKE ONE TABLET BY MOUTH EVERY DAY SOLD: 06/11/2020 [facility] doxycycline hyclate 100 MG Oral Capsule Doxycycline Hy clate 100 MG Doxycycline Hyclate 100 MG 04/15/2020 12:00:00 AM EST 1.0 {capsule} active Doxycycline Hyclate 100 MG eCW1 ([facility]) doxycycline hyclate 100 MG Oral Capsule Doxycycline Hy clate 100 MG Doxycycline Hyclate 100 MG 04/15/2020 12:00:00 AM EST 1.0 {capsule} active Doxycycline Hyclate 100 MG eCW1 ([facility]) Alprazolam 0.5 MG Oral Tablet ALPRAZOLAM 03/23/2020 12:00:00 AM EST ta blet 60 TAKE 1 TABLET BY MOUTH TWICE A DAY NEEDED ANXIETY & INSOMNIA MAX=2TABS/DAY TAKE 1 TABLET BY MOUTH TWICE A DAY NEEDED ANXIETY & INSOMNIA MAX=2TABS/DAY SOLD: 03/26/2020 [facility] 25 mg 03/07/2020 12:00:00 AM EST tablet 30 TAKE 1 TABLET [25MG TOTAL] BY MOUTH DAILY TAKE 1 TABLET [25MG TOTAL] BY MOUTH DAILY SOLD: 02/02/2021 [facility] 25 mg 03/07/2020 12:00:00 AM EST tablet 30 TAKE 1 TABLET [25MG TOTAL] BY MOUTH DAILY TAKE 1 TABLET [25MG TOTAL] BY MOUTH DAILY SOLD: 09/26/2020 [facility] 25 mg 03/07/2020 12:00:00 AM EST tablet 30 TAKE 1 TABLET [25MG TOTAL] BY MOUTH DAILY TAKE 1 TABLET [25MG TOTAL] BY MOUTH DAILY SOLD: 12/29/2020 [facility] 25 mg 03/07/2020 12:00:00 AM EST tablet 30 TAKE 1 TABLET [25MG TOTAL] BY MOUTH DAILY TAKE 1 TABLET [25MG TOTAL] BY MOUTH DAILY SOLD: 07/21/2020 [facility] 25 mg 03/07/2020 12:00:00 AM EST tablet 30 TAKE 1 TABLET [25MG TOTAL] BY MOUTH DAILY TAKE 1 TABLET [25MG TOTAL] BY MOUTH DAILY SOLD: 08/27/2020 [facility] 25 mg 03/07/2020 12:00:00 AM EST tablet 30 TAKE 1 TABLET [25MG TOTAL] BY MOUTH DAILY TAKE 1 TABLET [25MG TOTAL] BY MOUTH DAILY SOLD: 03/20/2020 [facility] 25 mg 03/07/2020 12:00:00 AM EST tablet 30 TAKE 1 TABLET [25MG TOTAL] BY MOUTH DAILY TAKE 1 TABLET [25MG TOTAL] BY MOUTH DAILY SOLD: 06/19/2020 [facility] 25 mg 03/07/2020 12:00:00 AM EST tablet 30 TAKE 1 TABLET [25MG TOTAL] BY MOUTH DAILY TAKE 1 TABLET [25MG TOTAL] BY MOUTH DAILY SOLD: 11/30/2020 [facility] 25 mg 03/07/2020 12:00:00 AM EST tablet 30 TAKE 1 TABLET [25MG TOTAL] BY MOUTH DAILY TAKE 1 TABLET [25MG TOTAL] BY MOUTH DAILY SOLD: 05/21/2020 [facility] 25 mg 03/07/2020 12:00:00 AM EST tablet 30 TAKE 1 TABLET [25MG TOTAL] BY MOUTH DAILY TAKE 1 TABLET [25MG TOTAL] BY MOUTH DAILY SOLD: 03/04/2021 [facility] 25 mg 03/07/2020 12:00:00 AM EST tablet 30 TAKE 1 TABLET [25MG TOTAL] BY MOUTH DAILY TAKE 1 TABLET [25MG TOTAL] BY MOUTH DAILY SOLD: 10/29/2020 [facility] 5 mg 02/08/2020 12:00:00 AM EDT tablet 45 TAKE ONE TABLET BY MOUTH TWICE A DAY NEEDED FOR MUSCLE SPASMS TAKE ONE TABLET BY MOUTH TWICE A DAY NEEDED FOR MUSCLE SPASMS SOLD: 02/11/2020 [facility] Hydroxychloroquine Sulfate 200 MG Oral Tablet HYDROXYCHLOROQ UINE SULFATE 01/27/2020 12:00:00 AM EDT tablet 180 TAKE ONE TABLE T BY MOUTH TWICE A DAY TAKE ONE TABLET BY MOUTH TWICE A DAY SOLD: 04/26/2020 [facility] 75 mcg 01/20/2020 12:00:00 AM EDT tablet 30 TAKE ONE TABLET BY MOUTH EVERY DAY BEFORE BREAKFAST TAKE ONE TABLET BY MOUTH EVERY DAY BEFORE BREAKFAST SO LD: 08/27/2020 [facility] 75 mcg 01/20/2020 12:00:00 AM EDT tablet 30 TAKE ONE TABLET BY MOUTH EVERY DAY BEFORE BREAKFAST TAKE ONE TABLET BY MOUTH EVERY DAY BEFORE BREAKFAST SO LD: 12/29/2020 [facility] 75 mcg 01/20/2020 12:00:00 AM EDT tablet 30 TAKE ONE TABLET BY MOUTH EVERY DAY BEFORE BREAKFAST TAKE ONE TABLET BY MOUTH EVERY DAY BEFORE BREAKFAST SO LD: 07/26/2020 [facility] 75 mcg 01/20/2020 12:00:00 AM EDT tablet 30 TAKE ONE TABLET BY MOUTH EVERY DAY BEFORE BREAKFAST TAKE ONE TABLET BY MOUTH EVERY DAY BEFORE BREAKFAST SO LD: 11/30/2020 [facility] 75 mcg 01/20/2020 12:00:00 AM EDT tablet 30 TAKE ONE TABLET BY MOUTH EVERY DAY BEFORE BREAKFAST TAKE ONE TABLET BY MOUTH EVERY DAY BEFORE BREAKFAST SO LD: 04/26/2020 [facility] 75 mcg 01/20/2020 12:00:00 AM EDT tablet 30 TAKE ONE TABLET BY MOUTH EVERY DAY BEFORE BREAKFAST TAKE ONE TABLET BY MOUTH EVERY DAY BEFORE BREAKFAST SO LD: 06/27/2020 [facility] 75 mcg 01/20/2020 12:00:00 AM EDT tablet 30 TAKE ONE TABLET BY MOUTH EVERY DAY BEFORE BREAKFAST TAKE ONE TABLET BY MOUTH EVERY DAY BEFORE BREAKFAST SO LD: 10/29/2020 [facility] 75 mcg 01/20/2020 12:00:00 AM EDT tablet 30 TAKE ONE TABLET BY MOUTH EVERY DAY BEFORE BREAKFAST TAKE ONE TABLET BY MOUTH EVERY DAY BEFORE BREAKFAST SO LD: 03/26/2020 [facility] 75 mcg 01/20/2020 12:00:00 AM EDT tablet 30 TAKE ONE TABLET BY MOUTH EVERY DAY BEFORE BREAKFAST TAKE ONE TABLET BY MOUTH EVERY DAY BEFORE BREAKFAST SO LD: 05/25/2020 [facility] 75 mcg 01/20/2020 12:00:00 AM EDT tablet 30 TAKE ONE TABLET BY MOUTH EVERY DAY BEFORE BREAKFAST TAKE ONE TABLET BY MOUTH EVERY DAY BEFORE BREAKFAST SO LD: 09/26/2020 [facility] 75 mcg 01/20/2020 12:00:00 AM EDT tablet 30 TAKE ONE TABLET BY MOUTH EVERY DAY BEFORE BREAKFAST TAKE ONE TABLET BY MOUTH EVERY DAY BEFORE BREAKFAST SO LD: 02/24/2020 [facility] Trazodone Hydrochloride 100 MG Oral Tablet TRAZODONE HCL 12/03/2019 12:00:00 AM EDT tablet 60 TAKE 2 TABLETS B Y MOUTH EVERY NIGHT AT BEDTIME MAXIMUM DAILY DOSE = 2 TAKE 2 TABLETS BY MOUTH EVERY NIGHT AT BEDTIME MAXIMUM DAILY DOSE = 2 SOLD: 02/11/2020 [facility] Trazodone Hydrochloride 100 MG Oral Tablet TRAZODONE HCL 12/03/2019 12:00:00 AM EDT tablet 60 TAKE 2 TABLETS B Y MOUTH EVERY NIGHT AT BEDTIME MAXIMUM DAILY DOSE = 2 TAKE 2 TABLETS BY MOUTH EVERY NIGHT AT BEDTIME MAXIMUM DAILY DOSE = 2 SOLD: 03/18/2020 [facility] 40 mg 09/23/2019 12:00:00 AM EDT tablet 90 TAKE ONE TABLET BY MOUTH EVERY DAY WITH DINNER TAKE ONE TABLET BY MOUTH EVERY DAY WITH DINNER SOLD: 021 [facility] 40 mg 09/23/2019 12:00:00 AM EDT tablet 90 TAKE ONE TABLET BY MOUTH EVERY DAY WITH DINNER TAKE ONE TABLET BY MOUTH EVERY DAY WITH DINNER SOLD: 020 [facility] 160-4.5 mcg/actuation 08/04/2019 12:00:00 AM EDT HFA aerosol inhaler 10 INHALE TWO PUFFS BY MOUTH TWICE A DAY INHALE TWO PUFFS BY MOUTH TWICE A DAY SOLD: 06/19/2020 [facility] pantoprazole 40 MG Delayed Release Oral Tablet PANTOPRAZOLE SODIUM 07/27/2019 12:00:00 AM EDT tablet,delayed release (DR/EC) 30 T CHET 1 TABLET BY MOUTH DAILY (SWALLOW WHOLE, NO CHEWING/BREAKING/CRUSHING) TAKE 1 TABLET BY MOUTH DAILY (SWALLOW WHOLE, NO CHEWING/BREAKING/CRUSHING) SOLD: 05/25/2020 [facility] pantoprazole 40 MG Delayed Release Oral Tablet PANTOPRAZOLE SODIUM 07/27/2019 12:00:00 AM EDT tablet,delayed release (DR/EC) 30 T CHET 1 TABLET BY MOUTH DAILY (SWALLOW WHOLE, NO CHEWING/BREAKING/CRUSHING) TAKE 1 TABLET BY MOUTH DAILY (SWALLOW WHOLE, NO CHEWING/BREAKING/CRUSHING) SOLD: 02/24/2020 [facility] pantoprazole 40 MG Delayed Release Oral Tablet PANTOPRAZOLE SODIUM 07/27/2019 12:00:00 AM EDT tablet,delayed release (DR/EC) 30 T CHET 1 TABLET BY MOUTH DAILY (SWALLOW WHOLE, NO CHEWING/BREAKING/CRUSHING) TAKE 1 TABLET BY MOUTH DAILY (SWALLOW WHOLE, NO CHEWING/BREAKING/CRUSHING) SOLD: 06/27/2020 [facility] pantoprazole 40 MG Delayed Release Oral Tablet PANTOPRAZOLE SODIUM 07/27/2019 12:00:00 AM EDT tablet,delayed release (DR/EC) 30 T CHET 1 TABLET BY MOUTH DAILY (SWALLOW WHOLE, NO CHEWING/BREAKING/CRUSHING) TAKE 1 TABLET BY MOUTH DAILY (SWALLOW WHOLE, NO CHEWING/BREAKING/CRUSHING) SOLD: 03/26/2020 [facility] pantoprazole 40 MG Delayed Release Oral Tablet PANTOPRAZOLE SODIUM 07/27/2019 12:00:00 AM EDT tablet,delayed release (DR/EC) 30 T CHET 1 TABLET BY MOUTH DAILY (SWALLOW WHOLE, NO CHEWING/BREAKING/CRUSHING) TAKE 1 TABLET BY MOUTH DAILY (SWALLOW WHOLE, NO CHEWING/BREAKING/CRUSHING) SOLD: 04/26/2020 [facility] 50 mg 06/12/2019 12:00:00 AM EST tablet 30 TAKE 1 TABLET BY MOUTH ONCE DAILY TAKE 1 TABLET BY MOUTH ONCE DAILY SOLD: 02/18/2020 [facility] 50 mg 06/12/2019 12:00:00 AM EST tablet 30 TAKE 1 TABLET BY MOUTH ONCE DAILY TAKE 1 TABLET BY MOUTH ONCE DAILY SOLD: 05/15/2020 [facility] 50 mg 06/12/2019 12:00:00 AM EST tablet 30 TAKE 1 TABLET BY MOUTH ONCE DAILY TAKE 1 TABLET BY MOUTH ONCE DAILY SOLD: 03/18/2020 [facility] Insurance Providers Payer name Policy type / Coverage type Policy ID Covered constitution party ID Covered constitution party's relationship to howard Policy Howard Plan Information [facility] [id number]. [id number] Self [facility] [id number] 2.0.1.329576.3.227.99.991.40162.0 Self C [id number] BCBS FHP Commercial [id number] Self BCBS FHP Commercial [id number] 2.0.1.619809.3.227.99.572.47254 .0 Self [id number] BCBS FHP Commercial [id number] 2.0.1.142465.3.227.99.572.50498 .0 Self [id number] BCBS FHP Commercial [id number] 2.0.1.267092.3.227.99.572.70268 .0 Self [id number] BCBS FHP Commercial [id number] 2.0.1.513101.3.227.99.572.39660 .0 Self [id number] BCBS FHP Commercial [id number] 2.0.1.655543.3.227.99.572.32718 .0 Self [id number] [employer] [employer] PLAN [id number] BCBS FHP Commercial [id number] 2.0.1.590174.3.227.99.572.73071 .0 Self [id number] HMO BLUE [id number] SP [id number] [place] PPO 302/307 [id number] SP [id number] BS [place] Medigap Part B [id number]. [id number] Self BS [place] Medigap Part B [id number] 2.0.1.828677.3.227.99.991.01743.0 Self C [id number] BS [place] Medigap Part B [id number] 2.0.1.006096.3.227.99.991.45950.0 Self C [id number] BS [place] Medigap Part B [id number] 2.0.1.184205.3.227.99.991.16932.0 Self C [id number] BCBS FHP Commercial [id number] 2.0.1.105353.3.227.99.572.31312 .0 Self [id number] BCBS FHP Commercial [id number] Self BCBS FHP Commercial [id number] 2.0.1.075232.3.227.99.572.20370 .0 Self [id number] BCBS FHP Commercial [id number] 2.0.1.539645.3.227.99.572.72819 .0 Self [id number] BCBS FHP Commercial [id number] 2.0.1.927996.3.227.99.572.67412 .0 Self [id number] BCBS FHP Commercial [id number] 2.0.1.078386.3.227.99.572.80666 .0 Self [id number] BCBS FHP Commercial [id number] 2.0.1.826557.3.227.99.572.92159 .0 Self [id number] MEDICARE [id number] SP [id number] MVP Hmo - In Network Health Maintenance Organization (HMO) [id number] 2.0.1.170645.3.227.99.572.98117.0 Self [id number] MVP Hmo/Pos Health Maintenance Organization (HMO) [id number] Self MEDICAID M [id number] Self [id number] MEDICARE [id number] SP [id number] [id number] Medicaid [place] Medigap Part B [id number] 2.0.1.983967.3.227.99.991. 73760.0 Self [id number] [place] Med[place] Part [place] 2.0.1.736264.3.227.99.991.52 025.0 Self [place] [id number] 2.0.1.463004.3.227.99.991. 44390.0 Self [id number] [place] Med[place] Part [place] [id number] 2.0.1.861956.3.227.99.991. 00097.0 Self [id number] MEDICAID [id number] SP [id number] [facility] Medigap Part B [id number] 2.0.1.194553.3.227.99.8646.98519.0 Self [id number] MEDICARE [id number] SP [id number] [id number] [place] Primary [id number] 2.0.1.915993.3.227.99.991.87493.0 Self 0 [id number] MEDICARE [id number] SP [id number] A [place] Primary 2.0.1.420778.3.227. 99.991.97990.0 Self MEDICARE A [id number] Self [id number] [id number] [place] Primary [id number] 2.0.1.497156.3.227.99.991.45935.0 Self 0 [id number] Medicare [facility] Medicare Primary [id number] 2.16.840.1.038122.3.227.99.991.51647.0 Self 0 [id number] BC[place] P[place] 302/307 [id number] SP [id number] AARP U [id number] Self [id number] AARP HEALTH CARE OPTIONS [id number] SP [id number] AARP HEALTH CARE OPTIONS [id number] SP [id number] AARP HEALTH CARE OPTIONS [id number] SP [id number] [facility] Options Medigap Part B [id number] 2.16.840.1.714266.3.227.99.572.17573.0 Self [id number] AARP HEALTH CARE OPTIONS [id number] SP [id number] Medicare Dme Medigap Part B [id number] 2.16.840.1.862962.3.227.99 .936.67991.0 Self [id number] Medicare Medicare Primary [id number] 2.16.840.1.380683.3.227. 99.936.75877.0 Self [id number] Medicare Dme Medigap Part B [id number] 2.16.840.1.832417.3.227.99 .936.54597.0 Self [id number] Medicare [facility] Medicare Primary [id number] 2.16.840.1.348088.3.227.99.8646.70310.0 Self [id number] Medicare (Part B) Medicare Primary [id number] 2.16.840.1.488853.3.227.99.572.44913.0 Self 0 [id number] Medicare (Part B) Medicare Primary [id number] 2.16.840.1.832299.3.227.99.572.25577.0 Self 0 [id number] MEDICAID [id number] SP [id number] MEDICARE [id number] SP [id number] A Medicare (Part B) Medicare Primary [id number] 2.16.840.1.511813.3.227.99.572.90533.0 Self 0 [id number] Medicare (Part B) Medicare Primary [id number] 2.16.840.1.508299.3.227.99.572.93685.0 Self 0 [id number] Medicare (Part B) Medicare Primary [id number] 2.16.840.1.814724.3.227.99.572.56216.0 Self 0 [id number] Blue Preferred Ppo Medigap Part B [id number] 2.16.840.1.672779.3.227.99.572.55751.0 Self C [id number] Medicare (Part B) Medicare Primary [id number] 2.16.840.1.612461.3.227.99.572.99553.0 Self 0 [id number] ANSI-Medicare Part B [id number] ANSI-Medicaid [id number] ANSI-Commercial pu08tz7b-u7u6-9l12-v564-7c2hbr90lhfo ag64cw4q-v0i3-1z99-u255-5s4lgd92gwks ANSI-Medicare Part B [id number] ANSI-Commercial [id number]-[id number] 58259577-he13-7483-430x-[id number] ANSI-Medicaid [id number] ANSI-Medicaid [id number] ANSI-Commercial 57xy7v55-158f-5t55-8226-29422pklbq19 49ty4u54-443g-8w20-1051-41166ygzng24 ANSI-Commercial vor12871-ip59-793n-7686-1256l4u5uk04 xrv93124-pl09-339b-7227-8077v5g1wc22 ANSI-Medicare Part B [id number] ANSI-Commercial [id number]-0t05-23ez-197c-[id number] 667054gx-5i39-14kn-830b-4ge52f642aq3 ANSI-Medicare Part B [id number] ANSI-Commercial [id number]-e003n0b53z39 172u4730-4044-7j04-0537-h098v4z64i51 ANSI-Medicaid [id number] ANSI-Commercial 08u4i2z4-4x39-9y9r-87vh-4198768g2p53 23w9m5z2-8j60-6d4e-99al-3767039g7o37 ANSI-Commercial 3h5yqu72-0389-209v-434g-u45mlu005z84 1b3vfa73-5114-222d-200x-v93ctx938h99 ANSI-Medicaid [id number] ANSI-Medicare Part B [id number] ANSI-Medicare Part B [id number] ANSI-Commercial 76u21m98-4e96-9979-k334-9a6s3d204o7l 75c59m07-9a55-8331-e014-6l1v0b931t6v ANSI-Commercial 6o8906p5-0635-58z7-el25-a3025l2lw8yt 5m1455f2-2737-77b5-nt93-i1367v1yj8ps ANSI-Medicaid [id number]-[id number] ANSI-Commercial 240n71j4-3h3q-1q22-32id-js79bse05mvf 124w71n4-9g7c-4b98-43dn-vq99ywc96ffd ANSI-Medicaid [id number] ANSI-Commercial 79nvgx65-3nvm-67g4-243j-[id number] 79gfex18-4vto-06v8-003o-25r628973122 ANSI-Medicare Part B [id number] [facility] HEALTH CARE OPTIONS [id number] SP [id number] ANSI-Commercial o6692533-p10w-8g86-1m3b-247w389o1s7c d2911679-f29d-0e11-1n6h-584c921w0h5a ANSI-Commercial 80101r86-6834-7q88-1u11-6ii4jm324o04 63713y56-9987-9z88-4v02-9jn3tk726g74 ANSI-Medicaid [id number] ANSI-Medicare Part B [id number] [facility] [id number] [facility] [id number] ANSI-Commercial [id number]-mr7x1l6e4886 6q155607-2ru9-9l19-1o40-zn0w9m3s1421 ANSI-Commercial 7t2g0915-3585-8pz5-8z8f-260vppdb647x 7j1c8070-5578-3kx6-2i2n-764ifiat301z ANSI-Commercial 1b6y91ag-297b-5842-j9r5-9g66qa82r5xb 7b4m18dd-756y-6279-j8n5-5e40ia92b0sf ANSI-Medicare Part B [id number] ANSI-Medicaid [id number] ANSI-Commercial 399wqsa6-18f7-03r3-aoch-p675w942e0a1 098ijiv6-12p7-79q0-qnyi-y596u196w3m7 ANSI-Commercial m57s3165-91i2-4vk7-z913-7y2xoqcggvb3 l64m6961-78e1-6rj9-j161-6k7jrxlneqa8 ANSI-Medicaid [id number]-3l4n-[id number] ANSI-Medicare Part B [id number] ANSI-Commercial a25qkeke-os7j-6290-6m9d-u2m4517i630e p67xtqsb-ld3d-3757-8o4k-s2r4570b459q MEDICARE [id number] SP [id number] AARP HEALTH CARE OPTIONS [id number] SP [id number] AARP HEALTH CARE OPTIONS [id number] SP [id number] AARP HEALTH CARE OPTIONS [id number] SP [id number] SELF PAY ONLY [id number] SP [id number] [place] O [id number] S [id number] AARP O [id number] S [id number] MEDICARE C [id number] S [id number] ANSI-Medicare Part B [id number] ANSI-Commercial [id number]i634a3i8153 i683h371-69l5-92v4-7gw4-3p840j5u5264 ANSI-Commercial 51do627i-0xei-4koi-am04-3u194z38j14y 38wn041s-8duq-0iva-sv30-8o945n00l99a ANSI-Medicaid [id number] ANSI-Medicare Part B [id number] ANSI-Commercial 140f9884-4w2t-4481-0l3k-k4g0zovzl885 833t9364-0y7d-6747-6o5a-t4y9xwjmo792 ANSI-Commercial 0112f2lk-t3j9-99e7-5nex-98z08h6jhs16 9752t4xv-h9r1-22v4-4rjl-52h16k1axj04 ANSI-Medicaid [id number] ANSI-Medicaid [id number] ANSI-Medicare Part B [id number] ANSI-Commercial 932d22mc-18ul-3487-n6af-0u11qyibg89h 266n18dn-43nk-1231-u2ao-1w52vqrku23q ANSI-Commercial nt716q07-7b51-6zaw-6re0-58o5tt67v556 ob383b76-9g86-4hjs-5yx5-87x5iq57m440 ANSI-Medicare Part B [id number] ANSI-Commercial 7604c9j6-ua1q-6xk8-05d0-w704do807ul6 1390l5c5-yu2k-7gi3-79j2-z638vf823pd7 ANSI-Commercial 5s808f34-4870-1k96-3a7a-n3104hcm0426 8t644y82-4856-0r07-9o5h-y1367hxs7684 ANSI-Medicaid [id number] ANSI-Commercial 50t10134-79g0-216f-h4a3-2d07s849z195 85c56562-26t2-408j-n8y9-9n55k346k026 ANSI-Commercial k6pb72gj-9c66-5q21-5qny-ub55tj9k0421 f4mi98kl-2q55-9n70-2cho-me90qb1y3744 ANSI-Medicaid [id number] ANSI-Medicare Part B [id number] EXCELLUS BS B [id number] S [id number] Health Maintenance Organization (HMO) 2.16.840.1.178129.3.227.99.8646.06620.0 Self MEDICAID [id number] SP [id number] Blue Preferred Ppo Medigap Part B [id number] Self Medicaid Medicaid [id number] Self [facility] PHY [id number] SP [id number] SELF PAY UNAVAILABLE [place] BLE MEDICAID [id number] SP [id number] BLUE CROSS [place] PLAN [id number] SP [id number] [place] 305/805 [id number] SP [id number] MEDICARE C [id number] S [id number] A Medicare Medicare Primary 2.16.840.1.465996.3.227.99.936.26 853.0 Self Medicare Medicare Primary [id number] 2.16.840.1.331042.3.227. 99.936.06925.0 Self [id number] Medicare Medicare Primary [id number] 2.16.840.1.831330.3.227. 99.936.32380.0 Self [id number] Medicare Medicare Primary [id number] 2.16.840.1.331385.3.227. 99.936.01913.0 Self [id number] Medicare Medicare Primary [id number] 2.16.840.1.589346.3.227. 99.936.64013.0 Self [id number] Medicare Medicare Primary [id number] 2.16.840.1.190018.3.227. 99.936.30700.0 Self [id number] Medicare Medicare Primary [id number] 2.16.840.1.064833.3.227. 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 Diagnosis 01/30/2021 01:53:00 PM EDT [facility] D84.9 Immunodeficiency, unspecified Immunodeficiency, unspec ified Diagnosis 01/30/2021 01:53:00 PM [facility] no dx no dx Diagnosis 05/10/2020 02:48:00 PM [facility] H91.90 [id number] Hearing disorder, unspecified laterality Problem 03/09/2021 12:00:00 AM EST eCW1 ([facility]) Z79.52 [id number] roasterman (current) use of systemic st eroids Problem 11/24/2020 12:00:00 AM EDT eCW1 ([facility]) M89.49 [id number] Primary osteoarthritis involving multiple joints Problem 11/24/2020 12:00:00 AM EDT eCW1 ([facility]) Z00.00 [id number] Medicare annual wellness visit, subsequen t Problem 11/18/2020 12:00:00 AM EDT eCW1 ([facility]) I89.0 Lymphedema Lymphedema Problem 08/29/2020 12:00:00 AM ED T eCW1 ([facility]) M17.0 [id number] Primary osteoarthritis of both knees Prob lakisha 06/20/2020 12:00:00 AM EST eCW1 ([facility]) M05.79 352565014 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 rheumatoid factor Problem 06/20/2020 12:00:00 AM EST eCW1 ([facility]) Z94.1 [id number] Heart transplant recipient Problem 12:00:00 AM EST eCW1 ([facility]) M06.9 920587133 Rheumatoid arthritis involving multiple sites, unspecified whether rheumatoid factor present Problem 04/04/2020 12:00:00 AM EST eCW1 ([facility]) I89.0 599579314 Lymphedema of arm Problem 03/30/2020 12:00:0 0 AM EST eCW1 ([facility]) Surgeries/Procedures Procedure Description Date Indications Data Source(s) Inject/Drain Arthrocentesis Major Joint/Bursa/Ganglion Cyst 03/03/2021 12:00:00 AM EDT [facility] ([facility]) OFFICE OUTPATIENT VISIT 25 MINUTES 03/03/2021 12:00:00 AM EDT [facility] ([facility]) OFFICE OUTPATIENT NEW 30 MINUTES 02/15/2021 12:00:00 A M EDT [facility] ([facility] ) OFFICE OUTPATIENT NEW 45 MINUTES 02/15/2021 12:00:00 A M EDT [facility] ([facility]) Results ID Date Data Source [id number] 03/09/2021 10:06:11 AM [facility] Value Range Interpretation Code Description Data Allegra rce(s) Supporting Document(s) Sirolimus [Mass/volume] in Blood 4.1 ng/mL 6.5-15.0 L [facility] (NOTE)The stated therapeutic range is ba sed on a trough specimen, with the patient in the maintenance phase, and in combination with cyclosporine for a kidney transplant. ID Date Data Source [id number] 03/07/2021 02:53:40 PM [facility] Value Range Interpretation Code Description Data Allegra rce(s) Supporting Document(s) Tacrolimus [Mass/volume] in Blood 7.7 ng/mL [facility] Renal Transplant Target ValuesImmediate post-transplant: 10 - 15 ng/mL First 6 months: 6 - 15 ng/mL Greater than 6 months: 6 - 15 ng/mL ID Date Data Source [id number] 01/31/2021 09:06:01 AM [facility] Value Range Interpretation Code Description Data Allegra rce(s) Supporting Document(s) Sirolimus [Mass/volume] in Blood 8.9 ng/mL 6.5-15.0 [facility] (NOTE)The stated therapeutic range is ba sed on a trough specimen, with the patient in the maintenance phase, and in combination with cyclosporine for a kidney transplant. ID Date Data Source [id number] 01/30/2021 03:40:25 PM [facility] Value Range Interpretation Code Description Data Allegra rce(s) Supporting Document(s) Tacrolimus [Mass/volume] in Blood 8.5 ng/mL [facility] Renal Transplant Target ValuesImmediate post-transplant: 10 - 15 ng/mL First 6 months: 6 - 15 ng/mL Greater than 6 months: 6 - 15 ng/mL ID Date Data Source [id number] 12/28/2020 08:30:25 AM [facility] Value Range Interpretation Code Description Data Allegra rce(s) Supporting Document(s) Cyclosporine [Mass/volume] in Blood [facility] Therapeutic: ng/mLRenal Transplan t: 100-250Liver Translpant: 100- 400Cardiac Transplant:100-400Bone Marrow: 200-300 ID Date Data Source [id number] 12/28/2020 08:30:18 AM EDT [facility] Name Value Range Interpretation Code Description Data Allegra rce(s) Supporting Document(s) Tacrolimus [Mass/volume] in Blood 7.1 ng/mL [facility] Renal Transplant Target ValuesImmediate post-transplant: 10 - 15 ng/mL First 6 months: 6 - 15 ng/mL Greater than 6 months: 6 - 15 ng/mL ID Date Data Source [id number] SEDIMENTATION RATE 11/24/2020 12:00:00 AM EDT eC W1 ([facility]) Name Value Range Interpretation Code Description Data Allegra rce(s) Supporting Document(s) 17 0-30 eCW1 ([facility]) ID Date Data Source C REACTIVE PROTEIN QUANTITATIV (At [facility]) 11/24/2020 12:00 :00 AM EDT eCW1 ([facility]) Name Value Range Interpretation Code Description Data Allegra rce(s) Supporting Document(s) 0.30 0.00-0.30 eCW1 ([facility]) ID Date Data Source Comprehensive Metabolic Profile (CMP) 11/24/2020 12:00:00 AM EDT eCW1 ([facility]) Name Value Range Interpretation Code Description Data Allegra rce(s) Supporting Document(s) 84 70-100 eCW1 ([facility]) 9 7-18 eCW1 ([facility]) 145 136-145 eCW1 ([facility]) 4.2 3.5-5.1 eCW1 ([facility]) > 60.0 >51 eCW1 ([facility]) 0.84 0.55-1.30 eCW1 ([facility]) 25 7-37 eCW1 ([facility]) 9.4 8.5-10.1 eCW1 ([facility]) 106 98-107 eCW1 ([facility]) 33 21-32 eCW1 ([facility]) 65 45-117 eCW1 ([facility]) 0.4 0.2-1.0 eCW1 ([facility]) 26 12-78 eCW1 ([facility]) 3.6 3.2-5.2 eCW1 ([facility]) 1.2 1.2-2.2 eCW1 ([facility]) 6.6 6.4-8.2 eCW1 ([facility]) ID Date Data Source CBC with Differential 11/24/2020 12:00:00 AM EDT eCW1 ([facility]) Name Value Range Interpretation Code Description Data Allegra rce(s) Supporting Document(s) 2.7 4.0-10.0 eCW1 ([facility]) 14.1 12.0-15.5 eCW1 ([facility]) 3.80 4.00-5.40 eCW1 ([facility]) 42.4 36.0-47.0 eCW1 ([facility]) 37.1 27.0-33.0 eCW1 ([facility]) 111.6 80.0-96.0 eCW1 ([facility]) 33.3 32.0-36.5 eCW1 ([facility]) 13.1 11.5-14.5 eCW1 ([facility]) 229 150-450 eCW1 ([facility]) ID Date Data Source [id number] 11/12/2020 09:17:00 AM EDT [facility] Name Value Range Interpretation Code Description Data Allegra rce(s) Supporting Document(s) SARS-CoV-2 RNA Pnl Spec SAAD+probe NEG [facility] This lab was ordered by [facility] ([facility]) and reported by [facility]. ID Date Data Source [id number] 11/11/2020 08:44:00 PM EDT [facility] Name Value Range Interpretation Code Description Data Allegra rce(s) Supporting Document(s) SARS-CoV-2 (COVID 19) NEGATIVE - SARS-CoV-2 (COVID19) [facility] This lab was ordered by [facility] a nd reported by [facility]. ID Date Data Source [id number] 10/29/2020 08:22:00 AM EDT [facility] Name Value Range Interpretation Code Description Data Allegra rce(s) Supporting Document(s) SARS-CoV-2 (COVID 19) NEGATIVE - SARS-CoV-2 (COVID19) [facility] This lab was ordered by [facility] a nd reported by [facility]. ID Date Data Source [id number] 10/20/2020 09:44:00 AM EDT [facility] Name Value Range Interpretation Code Description Data Allegra rce(s) Supporting Document(s) SARS-CoV-2 RNA Pnl Spec SAAD+probe NEG [facility] This lab was ordered by [address] and reported by [facility]. ID Date Data Source [id number] 09/01/2020 08:31:44 AM EDT [facility] Name Value Range Interpretation Code Description Data Allegra rce(s) Supporting Document(s) Sirolimus [Mass/volume] in Blood 6.5-15.0 L [facility] (NOTE)The stated therapeutic range is ba sed on a trough specimen, with the patient in the maintenance phase, and in combination with cyclosporine for a kidney transplant. ID Date Data Source [id number] 08/31/2020 09:22:52 AM EDT [facility] Name Value Range Interpretation Code Description Data Allegra rce(s) Supporting Document(s) Tacrolimus [Mass/volume] in Blood 10.7 ng/mL [facility] Renal Transplant Target ValuesImmediate post-transplant: 10 - 15 ng/mL First 6 months: 6 - 15 ng/mL Greater than 6 months: 6 - 15 ng/mL ID Date Data Source [id number] 07/28/2020 11:20:00 AM EDT [facility] Name Value Range Interpretation Code Description Data Allegra rce(s) Supporting Document(s) SARS-CoV-2 (COVID-19) RNA [Presence] in Respiratory specimen by SAAD with probe detection Not Detected [facility] This lab was ordered by [facility] and reported by [employer]. ID Date Data Source [id number] 07/26/2020 09:15:40 AM [facility] Value Range Interpretation Code Description Data Allegra rce(s) Supporting Document(s) Sirolimus [Mass/volume] in Blood 6.5-15.0 L [facility] (NOTE)The stated therapeutic range is ba sed on a trough specimen, with the patient in the maintenance phase, and in combination with cyclosporine for a kidney transplant. ID Date Data Source [id number] 07/26/2020 08:35:40 AM [facility] Value Range Interpretation Code Description Data Allegra rce(s) Supporting Document(s) Tacrolimus [Mass/volume] in Blood 9.2 ng/mL [facility] Renal Transplant Target ValuesImmediate post-transplant: 10 - 15 ng/mL First 6 months: 6 - 15 ng/mL Greater than 6 months: 6 - 15 ng/mL ID Date Data Source [id number] 07/12/2020 10:16:06 AM [facility] Value Range Interpretation Code Description Data Allegra rce(s) Supporting Document(s) Sirolimus [Mass/volume] in Blood 6.5-15.0 [facility] (NOTE)The stated therapeutic range is ba sed on a trough specimen, with the patient in the maintenance phase, and in combination with cyclosporine for a kidney transplant. ID Date Data Source [id number] 07/12/2020 09:25:04 AM [facility] Value Range Interpretation Code Description Data Allegra rce(s) Supporting Document(s) Tacrolimus [Mass/volume] in Blood 9.6 ng/mL [facility] Renal Transplant Target ValuesImmediate post-transplant: 10 - 15 ng/mL First 6 months: 6 - 15 ng/mL Greater than 6 months: 6 - 15 ng/mL ID Date Data Source [id number] 05/12/2020 12:43:53 PM [facility] Value Range Interpretation Code Description Data Allegra rce(s) Supporting Document(s) Sirolimus [Mass/volume] in Blood 7.1 ng/mL 6.5-15.0 [facility] (NOTE)The stated therapeutic range is ba sed on a trough specimen, with the patient in the maintenance phase, and in combination with cyclosporine for a kidney transplant. ID Date Data Source [id number] 05/11/2020 09:36:18 AM [facility] Name Value Range Interpretation Code Description Data Allegra rce(s) Supporting Document(s) Tacrolimus [Mass/volume] in Blood 6.0 ng/mL [facility] Renal Transplant Target ValuesImmediate post-transplant: 10 - 15 ng/mL First 6 months: 6 - 15 ng/mL Greater than 6 months: 6 - 15 ng/mL ID Date Data Source [id number] 04/26/2020 10:10:12 AM [facility] Value Range Interpretation Code Description Data Allegra rce(s) Supporting Document(s) Tacrolimus [Mass/volume] in Blood 5.7 ng/mL [facility] Renal Transplant Target ValuesImmediate post-transplant: 10 - 15 ng/mL First 6 months: 6 - 15 ng/mL Greater than 6 months: 6 - 15 ng/mL ID Date Data Source [id number] 04/26/2020 09:14:08 AM [facility] Value Range Interpretation Code Description Data Allegra rce(s) Supporting Document(s) Sirolimus [Mass/volume] in Blood 6.7 ng/mL 6.5-15.0 [facility] (NOTE)The stated therapeutic range is ba sed on a trough specimen, with the patient in the maintenance phase, and in combination with cyclosporine for a kidney transplant. ID Date Data Source [id number] 04/12/2020 12:00:[address] [facility] Name Value Range Interpretation Code Description Data Allegra rce(s) Supporting Document(s) SARS-CoV-2 (COVID-19) RNA [Presence] in Respiratory specimen by SAAD with probe detection [facility] This lab was ordered by [facility] and reported by [employer]. ID Date Data Source [id number] 03/31/2020 09:41:39 AM [facility] Value Range Interpretation Code Description Data Allegra rce(s) Supporting Document(s) Sirolimus [Mass/volume] in Blood 10.8 ng/mL 6.5-15.0 [facility] (NOTE)The stated therapeutic range is ba sed on a trough specimen, with the patient in the maintenance phase, and in combination with cyclosporine for a kidney transplant. ID Date Data Source [id number] 03/30/2020 08:51:20 AM [facility] Name Value Range Interpretation Code Description Data Allegra rce(s) Supporting Document(s) Tacrolimus [Mass/volume] in Blood 10.2 ng/mL [facility] Renal Transplant Target ValuesImmediate post-transplant: 10 - 15 ng/mL First 6 months: 6 - 15 ng/mL Greater than 6 months: 6 - 15 ng/mL ID Date Data Source [id number] 03/02/2020 12:00:00 AM EST [facility] Name Value Range Interpretation Code Description Data Allegra rce(s) Supporting Document(s) SARS coronavirus 2 RNA [Presence] in Res piratory specimen by SAAD with probe detection [facility] This lab was ordered by Noemi Mina and reported by [email or web address]. ID Date Data Source [id number] 02/18/2020 10:50:55 AM EDT [facility] Name Value Range Interpretation Code Description Data Allegra rce(s) Supporting Document(s) Sirolimus [Mass/volume] in Blood 5.3 ng/mL 6.5-15.0 L [facility] (NOTE)The stated therapeutic range is ba sed on a trough specimen, with the patient in the maintenance phase, and in combination with cyclosporine for a kidney transplant. ID Date Data Source [id number] 02/17/2020 09:10:19 AM EDT [facility] Name Value Range Interpretation Code Description Data Allegra rce(s) Supporting Document(s) Tacrolimus [Mass/volume] in Blood 5.9 ng/mL [facility] Renal Transplant Target ValuesImmediate post-transplant: 10 - 15 ng/mL First 6 months: 6 - 15 ng/mL Greater than 6 months: 6 - 15 ng/mL Procedure Social History Code Duration Value Status Description Data Source(s ) Smoking 02/22/2021 12:00:00 AM EDT Former Smoker completed Former Smoker eCW1 ([facility]) Smoking 02/22/2021 12:00:00 AM EDT Former Smoker completed Former Smoker eCW1 ([facility]) Smoking 02/15/2021 12:00:00 AM EDT Patient is a former smoker completed Patient is a former smoker MEDENT ([facility], ) Smoking 02/02/2021 12:00:00 AM EDT Former Smoker completed Former Smoker eCW1 ([facility]) Smoking 02/02/2021 12:00:00 AM EDT Former Smoker completed Former Smoker eCW1 ([facility]) Smoking 02/02/2021 12:00:00 AM EDT Former Smoker completed Former Smoker eCW1 ([facility]) Smoking 11/24/2020 12:00:00 AM EDT Former Smoker completed Former Smoker eCW1 ([facility]) Smoking 11/24/2020 12:00:00 AM EDT Former Smoker completed Former Smoker eCW1 ([facility]) Smoking 11/24/2020 12:00:00 AM EDT Former Smoker completed Former Smoker eCW1 ([facility]) Smoking 11/18/2020 12:00:00 AM EDT Former Smoker completed Former Smoker eCW1 ([facility]) Smoking 09/14/2020 12:00:00 AM EDT Former Smoker completed Former Smoker eCW1 ([facility]) Smoking 09/14/2020 12:00:00 AM EDT Former Smoker completed Former Smoker eCW1 ([facility]) Smoking 09/14/2020 12:00:00 AM EDT Former Smoker completed Former Smoker eCW1 ([facility]) Smoking 07/20/2020 12:00:00 AM EDT Former Smoker completed Former Smoker eCW1 ([facility]) Smoking 07/20/2020 12:00:00 AM EDT Former Smoker completed Former Smoker eCW1 ([facility]) Smoking 07/20/2020 12:00:00 AM EDT Former Smoker completed Former Smoker eCW1 ([facility]) Smoking 06/20/2020 12:00:00 AM EST Former Smoker completed Former Smoker eCW1 ([facility]) Smoking 06/20/2020 12:00:00 AM EST Former Smoker completed Former Smoker eCW1 ([facility]) Smoking 06/20/2020 12:00:00 AM EST Former Smoker completed Former Smoker eCW1 ([facility]) Smoking 04/04/2020 12:00:00 AM EST Former Smoker completed Former Smoker eCW1 ([facility]) Smoking 04/04/2020 12:00:00 AM EST Former Smoker completed Former Smoker eCW1 ([facility]) Smoking 04/04/2020 12:00:00 AM EST Former Smoker completed Former Smoker eCW1 ([facility]) Smoking 03/30/2020 12:00:00 AM EST Former Smoker completed Former Smoker eCW1 ([facility]) Smoking 03/14/2020 12:00:00 AM EST Former Smoker completed Former Smoker eCW1 ([facility]) Vital Signs ID Date Data Source [id number] Name Value Range Interpretation Code Description Data Source(s) Body weight 202 [lb_av] 202 [lb_av] eCW1 ([facility]) Body height 65.75 [in_i] 65.75 [in_i] eCW1 ([facility]) Body mass index (BMI) [Ratio] 32.85 kg/m2 32.85 kg/m2 eCW1 ([facility]) Heart rate 128 /min 128 /min eCW1 ([facility]) Respiratory rate 18 /min 18 /min eCW1 ([facility]) Body temperature 98.2 [degF] 98.2 [degF] eCW1 ( [facility]) Systolic blood pressure 110 mm[Hg] 110 mm[Hg] e CW1 ([facility]) Diastolic blood pressure 60 mm[Hg] 60 mm[Hg] eCW1 ([facility]) Body weight 90.947 kg 90.947 kg [facility], ) Body temperature 98.3 [degF] 98.3 [degF] MEDENT ([facility]) Body surface area Derived from formula 2.02 m2 2.02 m2 [facility] ([facility], ) Body height 67 [in_i] 67 [in_i] MED[facility] (Health system) 5'7" Body weight 200.50 [lb_av] 200.50 [lb_av] MEDEN T ([facility]) Body mass index (BMI) [Ratio] 31.4 kg/m2 31.4 k g/m2 [facility] ([facility], ) [place] body weight 135 [lb_av] 135 [lb_av] MEDEN T ([facility], ) Body weight 202.4 [lb_av] 202.4 [lb_av] eCW1 ([facility]) Body weight 91.81 kg 91.81 kg eCW1 ([facility]) Body height 65.75 [in_i] 65.75 [in_i] eCW1 ([facility]) Body mass index (BMI) [Ratio] 32.91 kg/m2 32.91 kg/m2 eCW1 ([facility]) Heart rate 115 /min 115 /min eCW1 ([facility]) Respiratory rate 18 /min 18 /min eCW1 ([facility]) Body temperature 98.3 [degF] 98.3 [degF] eCW1 ( [facility]) Systolic blood pressure 118 mm[Hg] 118 mm[Hg] e CW1 ([facility]) Diastolic blood pressure 78 mm[Hg] 78 mm[Hg] eCW1 ([facility]) Body weight 203.4 [lb_av] 203.4 [lb_av] eCW1 ([facility]) Body weight 92.3 kg 92.3 kg eCW1 ([facility]) Body height 65.75 [in_i] 65.75 [in_i] eCW1 ([facility]) Body mass index (BMI) [Ratio] 33.08 kg/m2 33.08 kg/m2 eCW1 ([facility]) Heart rate 118 /min 118 /min eCW1 ([facility]) Respiratory rate 18 /min 18 /min eCW1 ([facility]) Body temperature 98.6 [degF] 98.6 [degF] eCW1 ( [facility]) Systolic blood pressure 128 mm[Hg] 128 mm[Hg] e CW1 ([facility]) Diastolic blood pressure 78 mm[Hg] 78 mm[Hg] eCW1 ([facility]) Heart rate 132 /min 132 /min eCW1 ([facility]) Respiratory rate 18 /min 18 /min eCW1 ([facility]) Body temperature 98.6 [degF] 98.6 [degF] eCW1 ( [facility]) Systolic blood pressure 110 mm[Hg] 110 mm[Hg] e CW1 ([facility]) Diastolic blood pressure 76 mm[Hg] 76 mm[Hg] eCW1 ([facility]) Body weight 200.4 [lb_av] 200.4 [lb_av] eCW1 ([facility]) Body height 65.75 [in_i] 65.75 [in_i] eCW1 ([facility]) Body mass index (BMI) [Ratio] 32.59 kg/m2 32.59 kg/m2 eCW1 ([facility]) Body weight 207 [lb_av] 207 [lb_av] eCW1 ([facility]) Body weight 93.89 kg 93.89 kg eCW1 ([facility]) Body height 65.75 [in_i] 65.75 [in_i] eCW1 ([facility]) Body mass index (BMI) [Ratio] 33.66 kg/m2 33.66 kg/m2 eCW1 ([facility]) Heart rate 102 /min 102 /min eCW1 ([facility]) Respiratory rate 18 /min 18 /min eCW1 ([facility]) Body temperature 97.5 [degF] 97.5 [degF] eCW1 ( [facility]) Systolic blood pressure 124 mm[Hg] 124 mm[Hg] e CW1 ([facility]) Diastolic blood pressure 80 mm[Hg] 80 mm[Hg] eCW1 ([facility]) Body weight 211 [lb_av] 211 [lb_av] eCW1 ([facility]) Body height 65.75 [in_i] 65.75 [in_i] eCW1 ([facility]) Body mass index (BMI) [Ratio] 34.31 kg/m2 34.31 kg/m2 eCW1 ([facility]) Heart rate 127 /min 127 /min eCW1 ([facility]) Respiratory rate 18 /min 18 /min eCW1 ([facility]) Body temperature 97.1 [degF] 97.1 [degF] eCW1 ( [facility]) Systolic blood pressure 122 mm[Hg] 122 mm[Hg] e CW1 ([facility]) Diastolic blood pressure 62 mm[Hg] 62 mm[Hg] eCW1 ([facility]) Body weight 211 [lb_av] 211 [lb_av] eCW1 ([facility]) Body height 65.75 [in_i] 65.75 [in_i] eCW1 ([facility]) Body mass index (BMI) [Ratio] 34.31 kg/m2 34.31 kg/m2 eCW1 ([facility]) Heart rate 127 /min 127 /min eCW1 ([facility]) Respiratory rate 18 /min 18 /min eCW1 ([facility]) Body temperature 97.1 [degF] 97.1 [degF] eCW1 ( [facility]) Systolic blood pressure 122 mm[Hg] 122 mm[Hg] e CW1 ([facility]) Diastolic blood pressure 62 mm[Hg] 62 mm[Hg] eCW1 ([facility]) Body height 67 [in_i] 67 [in_i] [facility] ([facility], ) 5'7" Body weight 208.25 [lb_av] 208.25 [lb_av] MEDEN T ([facility], ) Body mass index (BMI) [Ratio] 32.6 kg/m2 32.6 k g/m2 [facility] ([facility], ) [place] body weight 135 [lb_av] 135 [lb_av] MEDEN T ([facility], ) Body weight 94.462 kg 94.462 kg [facility] ([facility], ) Body surface area Derived from formula 2.06 m2 2.06 m2 [facility] ([facility], ) Diastolic blood pressure 80 mm[Hg] 80 mm[Hg] [facility] ([facility], ) Body height 67 [in_i] 67 [in_i] [facility] (Health system) 5'7" Body weight 208.25 [lb_av] 208.25 [lb_av] MEDEN T ([facility]) Body mass index (BMI) [Ratio] 32.6 kg/m2 32.6 k g/m2 [facility] ([facility]) Systolic blood pressure 132 mm[Hg] 132 mm[Hg] M EDENT ([facility]) [place] body weight 135 [lb_av] 135 [lb_av] MEDEN T ([facility]) Body weight 94.462 kg 94.462 kg [facility] (Health system) Body surface area Derived from formula 2.06 m2 2.06 m2 [facility] ([facility]) Body weight 209.8 [lb_av] 209.8 [lb_av] eCW1 ([facility]) Body weight 95.1 kg 95.1 kg eCW1 ([facility]) Body height 65.75 [in_i] 65.75 [in_i] eCW1 ([facility]) Body mass index (BMI) [Ratio] 34.12 kg/m2 34.12 kg/m2 W1 ([facility]) Heart rate 129 /min 129 /min eCW1 ([facility]) Respiratory rate 18 /min 18 /min eCW1 ([facility]) Body temperature 97.6 [degF] 97.6 [degF] eCW1 ( [facility]) Systolic blood pressure 106 mm[Hg] 106 mm[Hg] e CW1 ([facility]) Diastolic blood pressure 66 mm[Hg] 66 mm[Hg] eCW1 ([facility]) Body mass index (BMI) [Ratio] 33.53 kg/m2 33.53 kg/m2 W1 ([facility]) Body temperature 98.3 [degF] 98.3 [degF] eCW1 ( [facility]) Body height 65.75 [in_i] 65.75 [in_i] eCW1 ([facility]) Systolic blood pressure 122 mm[Hg] 122 mm[Hg] e CW1 ([facility]) Diastolic blood pressure 60 mm[Hg] 60 mm[Hg] eCW1 ([facility]) Heart rate 96 /min 96 /min eCW1 ([facility]) Respiratory rate 18 /min 18 /min eCW1 ([facility]) Body weight 206.2 [lb_av] 206.2 [lb_av] eCW1 ([facility]) Body weight 93.5 kg 93.5 kg eCW1 ([facility]) Body weight 205 [lb_av] 205 [lb_av] eCW1 ([facility]) Body height 65.75 [in_i] 65.75 [in_i] eCW1 ([facility]) Body mass index (BMI) [Ratio] 33.34 kg/m2 33.34 kg/m2 eCW1 ([facility]) Heart rate 129 /min 129 /min eCW1 ([facility]) Respiratory rate 18 /min 18 /min eCW1 ([facility]) Body temperature 98.7 [degF] 98.7 [degF] eCW1 ( [facility]) Systolic blood pressure 118 mm[Hg] 118 mm[Hg] e CW1 ([facility]) Diastolic blood pressure 76 mm[Hg] 76 mm[Hg] eCW1 ([facility]) Body weight 198.0 [lb_av] 198.0 [lb_av] eCW1 ([facility]) Body weight 89.81 kg 89.81 kg eCW1 ([facility]) Body height 65.75 [in_i] 65.75 [in_i] eCW1 ([facility]) Body mass index (BMI) [Ratio] 32.2 kg/m2 32.2 k g/m2 eCW1 ([facility]) Heart rate 127 /min 127 /min eCW1 ([facility]) Body temperature 97.7 [degF] 97.7 [degF] eCW1 ( [facility]) Patient Treatment Plan of Care Planned Activity Planned Date Details Description Data Source (s) famciclovir 500 MG Oral Tablet 11/18/2020 12:00:00 AM EDT eCW1 ([facility]) Folic Acid 1 MG Oral Tablet 07/04/2020 12:00:00 AM EST eCW1 ([facility]) Folic Acid 1 MG Oral Tablet 07/04/2020 12:00:00 AM EST eCW1 ([facility]) Methotrexate 2.5 MG Oral Tablet 07/04/2020 12:00:00 AM EST eCW1 ([facility]) Methotrexate 2.5 MG Oral Tablet 07/04/2020 12:00:00 AM EST eCW1 ([facility]) Methotrexate 2.5 MG Oral Tablet 07/04/2020 12:00:00 AM EST eCW1 ([facility]) Methotrexate 2.5 MG Oral Tablet 07/04/2020 12:00:00 AM EST eCW1 ([facility]) Folic Acid 1 MG Oral Tablet 07/04/2020 12:00:00 AM EST eCW1 ([facility]) Methotrexate 2.5 MG Oral Tablet 07/04/2020 12:00:00 AM EST eCW1 ([facility]) doxycycline hyclate 100 MG Oral Capsule 04/15/2020 12:00:00 AM EST eCW1 ([facility]) doxycycline hyclate 100 MG Oral Capsule 04/15/2020 12:00:00 AM EST eCW1 ([facility])
[2021-03-30] MEDS ORDERED: ACETAMINOPHEN 325 MG TAB PO ONE (00:10)
[2021-03-30 01:24] LABS: EOS % 0.3 % (0.0-3.0); HEMATOCRIT 41.8 % (36.0-47.0); HEMOGLOBIN 13.9 g/dl (12.0-15.5); LYMPH # 0.2 10^3/uL (1.5-5.0); LYMPH % 6.7 % (24.0-44.0); MEAN CORPUSCULAR HEMOGLOBIN 34.4 pg (27.0-33.0); MEAN CORPUSCULAR HGB CONC 33.3 g/dl (32.0-36.5); MEAN CORPUSCULAR VOLUME 103.5 fl (80.0-96.0); MONO # 0.3 10^3/uL (0.0-0.8); MONO % 9.9 % (2.0-8.0); NEUTROPHILS # 2.6 10^3/uL (1.5-8.5); NEUTROPHILS % 82.1 % (36.0-66.0); PLATELET COUNT, AUTOMATED 158 10^3/uL (150-450); RED BLOOD COUNT 4.04 10^6/uL (4.00-5.40); WHITE BLOOD COUNT 3.1 10^3/uL (4.0-10.0)
[2021-03-30 01:46] LABS: BLOOD UREA NITROGEN 15 MG/DL (7-18); C REACTIVE PROTEIN QUANTITATIV 2.25 MG/DL (0.00-0.30); CALCIUM LEVEL 8.6 MG/DL (8.5-10.1); CARBON DIOXIDE LEVEL 30 MEQ/L (21-32); CHLORIDE LEVEL 105 MEQ/L (98-107); CREATININE FOR GFR 0.93 MG/DL (0.55-1.30); GLOMERULAR FILTRATION RATE > 60.0 (>51); GLUCOSE, FASTING 80 MG/DL (70-100); POTASSIUM SERUM 3.6 MEQ/L (3.5-5.1); SODIUM LEVEL 143 MEQ/L (136-145)
--- OUTSIDE RECORDS SUMMARY | 2021-03-30 01:56 | CCD ---
Author Author [facility] Address Unknown Phone Unavailable Care Team Providers Care Medicine Assistant Name Role Phone Ysabel Cardona MD Unavailable [...] Unavailable Ali, Ysabel VEGAS Unavailable Unavailable Ali, Ysbael VEGAS Unavailable Unavailable Ali, Ysabel VEGAS Unavailable [...] is protected by Article 27-F of the [facility] Public Health law. If you continue you may have access to information: Regarding HIV / AIDS; Provided by facilities licensed or operated by the [facility] Office of Mental Health; or Provided by the [facility] Office for People With Developmental Disabilities. If such information is present, then the following [facility] mandated warning applies: This information has [...] law may result in a fine or halfway sentence or both. A general authorization for the release of medical or other information is NOT sufficient authorization for further disc losure. Family History Family Member Name Family Member Gender Family Member Status Date o f Status Description Data Source(s) Unknown Female Problem MEDENT ([facility] Encounters Encounter Providers Location Date Indications Data Source(s ) [place] [address] [facility] [address] 03/08/2021 12:00:00 AM EST eCW1 ([facility]) Outpatient Attender: DERRICK Gallegoser: DERRICK ARRIAGA 03/07/2021 12:00:00 AM EST - 03/08/2021 12:00:00 AM EST Heart transplant status [facility] Heart transplant status Outpatient Attender: Memo Dela Cruz/Yessi/Amanuel/Rein dl 03/03/2021 08:00:00 AM EDT [facility] ([facility] [place] [address] [facility] [address] 02/22/2021 12:00:00 AM EDT eCW1 ([facility]) Outpatient Attender: Memo Dela Cruz/Mcintyre/Amanuel/Rein dl 02/15/2021 08:30:00 AM EDT [facility] ([facility]) [place] [address] [facility] [address] 02/09/2021 12:00:00 AM EDT eCW1 ([facility]) [place] [address] [facility] [address] 02/08/2021 12:00:00 AM EDT eCW1 ([facility]) [place]patient [address] [facility] [address] 02/02/2021 12:00:00 AM EDT eCW1 ([facility]) [place] [address] [facility] [address] 01/31/2021 12:00:00 AM EDT eCW1 ([facility]) Outpatient Attender: DERRICK HODGEReferrer: DERRICK ARRIAGA 01/30/2021 12:00:00 AM EDT - 01/31/2021 12:00:00 AM EDT Immunodeficiency, unspecified [facility] Immunodeficiency, unspecified Outpatient Attender: DERRICK HODGEReferrer: DERRICK ARRIAGA 12/27/2020 12:00:00 AM EDT - 12/28/2020 12:00:00 AM EDT Other senior care (current) drug therapy [facility] Other senior care (current) drug therapy Unknown [address] [facility] [address] 12/08/2020 12:00:00 AM EDT [facility] [place] [address] [facility] [address] 11/24/2020 12:00:00 AM EDT [facility]CW1 [facility] [place] [address] [facility] [place] [address] 11/18/2020 12:00:00 AM EDT [facility]1 [facility] [place] [address] [facility] [address] 10/24/2020 12:00:00 AM EDT eCW1 ([facility]) Outpatient 10/20/2020 12:00:00 AM EDT [facility] Outpatient Attender: Ysabel Cardona MD Main office - [place] 10/12/2020 01:45:00 PM EDT MED[facility] ([facility]) [place] [address] [facility] [address] 10/04/2020 12:00:00 AM EDT [facility]CW1 [facility] [place] [address] [facility] [address] 09/05/2020 12:00:00 AM EDT eCW1 ([facility] Outpatient Attender: DERRICK HODGEReferrer: DERRICK ARRIAGA 08/30/2020 12:00:00 AM EDT - 08/31/2020 12:00:00 AM EDT Heart transplant status [facility] Heart transplant status Unknown [address] [facility] [address] 08/29/2020 12:00:00 AM EDT eCW1 ([facility]) Outpatient Attender: DERRICK Forresterrer: DERRICK ARRIAGA 07/25/2020 12:00:00 AM EDT - 07/26/2020 12:00:00 AM EDT Heart transplant status [facility] Heart transplant status Outpatient [address] [facility] [place] [address] 07/20/2020 12:00:00 AM EDT eCW1 ([facility]) Outpatient Attender: DERRICK Forresterrer: DERRICK ARRIAGA 07/11/2020 12:00:00 AM EDT - 07/12/2020 12:00:00 AM EDT Heart transplant status [facility] Heart transplant status Unknown [address] [facility] [place] [address] 07/04/2020 12:00:00 AM EST eCW1 ([facility]) Unknown [address] [facility] [place] [address] 06/20/2020 12:00:00 AM EST eCW1 ([facility]) Office Visit, Est Pt., Level 4 PC [address] [place] [address] 06/20/2020 12:00:00 AM EST eCW1 ([facility]) Outpatient Attender: DERRICK Forresterrer: DERRICK ARRIAGA 05/10/2020 12:00:00 AM EST - 05/11/2020 12:00:00 AM EST no dx [facility] no dx Outpatient Attender: DERRICK Gallegoser: DERRICK ARRIAGA 04/25/2020 12:00:00 AM EST - 04/25/2020 11:59:00 PM EST Heart transplant status [facility] Heart transplant status Unknown [address] [facility] [address] 04/15/2020 12:00:00 AM EST eCW1 ([facility]) Office Visit, Est Pt., Level 4 PC [address] [place] [address] 04/04/2020 12:00:00 AM EST eCW1 ([facility]) Outpatient [address] [facility] [place] [address] 03/30/2020 12:00:00 AM EST eCW1 ([facility]) Outpatient Attender: Ysabel Cardona MD Main office - [place] 03/29/2020 12:45:00 PM EST MEDENT ([facility]) Outpatient Attender: NONA REY MDReferrer: NONA REY MD 03/29/2020 12:00:00 AM EST - 03/30/2020 12:00:00 AM EST Heart transplant status [facility] Heart transplant status Outpatient Attender: DERRICK HODGEReferrer: DERRICK ARRIAGA 02/15/2020 12:00:00 AM EDT - 02/16/2020 12:00:00 AM EDT Immunodeficiency, unspecified [facility] Immunodeficiency, unspecified Outpatient [address] [facility] [address] 02/15/2020 12:00:00 AM EDT eCW1 ([facility]) Immunizations Vaccine Date Status Description Data Source(s) COVID-19 VACC, MRNA(PFIZER)/PF 01/10/2021 12:00:00 AM EDT completed [facility] COVID-19 VACCINE Pfizer 01/10/2021 12:00:00 AM EDT completed [facility] Vaccine Series Complete: YESThis Data wa s Submitted to [facility] Via [facility]. COVID-19 dose #2 given elsewhere Unspecified 07/17/2020 10:0 5:00 AM EDT completed eCW1 ([facility]) COVID-19 dose #2 given elsewhere Unspecified 07/17/2020 10:0 5:00 AM EDT completed eCW1 ([facility]) COVID-19 dose #2 given elsewhere Unspecified 07/17/2020 10:0 5:00 AM EDT completed eCW1 ([facility]) COVID-19 dose #2 given elsewhere Unspecified 07/17/2020 10:0 5:00 AM EDT completed eCW1 ([facility]) COVID-19 dose #2 given elsewhere Unspecified 07/17/2020 10:0 5:00 AM EDT completed eCW1 ([facility]) COVID-19 dose #2 given elsewhere Unspecified 07/17/2020 10:0 5:00 AM EDT completed eCW1 ([facility]) COVID-19 dose #2 given elsewhere Unspecified 07/17/2020 10:0 5:00 AM EDT completed eCW1 ([facility]) COVID-19 dose #2 given elsewhere Unspecified 07/17/2020 10:0 5:00 AM EDT completed eCW1 ([facility]) COVID-19 dose #2 given elsewhere Unspecified 07/17/2020 10:0 5:00 AM EDT completed eCW1 ([facility]) COVID-19 dose #2 given elsewhere Unspecified 07/17/2020 10:0 5:00 AM EDT completed eCW1 ([facility]) COVID-19 dose #2 given elsewhere Unspecified 07/17/2020 10:0 5:00 AM EDT completed eCW1 ([facility]) COVID-19 dose #2 given elsewhere Unspecified 07/17/2020 10:0 5:00 AM EDT completed eCW1 ([facility]) COVID-19 dose #2 given elsewhere Unspecified 07/17/2020 10:0 5:00 AM EDT completed eCW1 ([facility]) COVID-19 dose #2 given elsewhere Unspecified 07/17/2020 10:0 5:00 AM EDT completed eCW1 ([facility]) COVID-19 dose #2 given elsewhere Unspecified 07/17/2020 10:0 5:00 AM EDT completed eCW1 ([facility]) COVID-19 VACCINE Pfizer 07/17/2020 12:00:00 AM EDT completed [facility] Vaccine Series Complete: YESThis Data wa s Submitted to [facility] Via [facility]. COVID-19 dose #1 given elsewhere Unspecified 06/26/2020 10:0 4:00 AM EST completed eCW1 ([facility]) COVID-19 dose #1 given elsewhere Unspecified 06/26/2020 10:0 4:00 AM EST completed eCW1 ([facility]) COVID-19 dose #1 given elsewhere Unspecified 06/26/2020 10:0 4:00 AM EST completed eCW1 ([facility]) COVID-19 dose #1 given elsewhere Unspecified 06/26/2020 10:0 4:00 AM EST completed eCW1 ([facility]) COVID-19 dose #1 given elsewhere Unspecified 06/26/2020 10:0 4:00 AM EST completed eCW1 ([facility]) COVID-19 dose #1 given elsewhere Unspecified 06/26/2020 10:0 4:00 AM EST completed eCW1 ([facility]) COVID-19 dose #1 given elsewhere Unspecified 06/26/2020 10:0 4:00 AM EST completed eCW1 ([facility]) COVID-19 dose #1 given elsewhere Unspecified 06/26/2020 10:0 4:00 AM EST completed eCW1 ([facility]) COVID-19 dose #1 given elsewhere Unspecified 06/26/2020 10:0 4:00 AM EST completed eCW1 ([facility]) COVID-19 dose #1 given elsewhere Unspecified 06/26/2020 10:0 4:00 AM EST completed eCW1 ([facility]) COVID-19 dose #1 given elsewhere Unspecified 06/26/2020 10:0 4:00 AM EST completed eCW1 ([facility]) COVID-19 dose #1 given elsewhere Unspecified 06/26/2020 10:0 4:00 AM EST completed eCW1 ([facility]) COVID-19 dose #1 given elsewhere Unspecified 06/26/2020 10:0 4:00 AM EST completed eCW1 ([facility]) COVID-19 dose #1 given elsewhere Unspecified 06/26/2020 10:0 4:00 AM EST completed eCW1 ([facility]) COVID-19 dose #1 given elsewhere Unspecified 06/26/2020 10:0 4:00 AM EST completed eCW1 ([facility]) COVID-19 VACCINE Pfizer 06/26/2020 12:00:00 AM EST completed [facility] Vaccine Series Complete: NOThis Data was Submitted to [facility] Via [facility]. Medications Medication Brand Name Start Date Product [...] {tablet} active Fa mciclovir 500 MG eCW1 ([facility]) famciclovir 500 MG Oral Tablet Famciclovir 500 MG Famciclovi r 500 MG 11/18/2020 12:00:00 AM EDT 1.0 {tablet} active Fa mciclovir 500 MG eCW1 ([facility]) famciclovir 500 MG Oral Tablet Famciclovir 500 MG Famciclovi r 500 MG 11/18/2020 12:00:00 AM EDT 1.0 {tablet} active eCW1 ([facility]) famciclovir 500 MG Oral Tablet Famciclovir 500 MG Famciclovi r 500 MG 11/18/2020 12:00:00 AM EDT 1.0 {tablet} active Fa mciclovir 500 MG eCW1 ([facility]) famciclovir 500 MG Oral Tablet Famciclovir 500 MG Famciclovi r 500 MG 11/18/2020 12:00:00 AM EDT 1.0 {tablet} active Fa mciclovir 500 MG eCW1 ([facility]) famciclovir 500 MG Oral Tablet Famciclovir 500 MG Famciclovi r 500 MG 11/18/2020 12:00:00 AM EDT 1.0 {tablet} active Fa mciclovir 500 MG eCW1 ([facility]) 500 mg 11/18/2020 12:00:00 AM EDT tablet 21 TAKE ONE TABLET BY MOUTH THREE TIMES A DAY FOR 7 DAYS TAKE ONE TABLET BY MOUTH THREE TIMES A DAY FOR 7 DAYS SOLD: 11/25/2020 [facility] famciclovir 500 MG Oral Tablet Famciclovir 500 MG Famciclovi r 500 MG 11/18/2020 12:00:00 AM EDT 1.0 {tablet} active Fa mciclovir 500 MG eCW1 ([facility]) famciclovir 500 MG Oral Tablet Famciclovir 500 MG Famciclovi r 500 MG 11/18/2020 12:00:00 AM EDT 1.0 {tablet} active Fa mciclovir 500 MG eCW1 ([facility]) famciclovir 500 MG Oral Tablet Famciclovir 500 MG Famciclovi r 500 MG 11/18/2020 12:00:00 AM EDT 1.0 {tablet} active Fa mciclovir 500 MG eCW1 ([facility]) 20 mg 10/29/2020 12:00:00 AM EDT [...] BY MOUTH TWICE A DAY SOLD: 10/22/2020 [facility] 300-15 mg 08/03/2020 12:00:00 AM EDT tablet 20 TAKE ONE TABLET BY MOUTH EVERY 4 HOURS NEEDED FOR PAIN MAXIMUM DAILY DOSE = 6 TABLETS TAKE ONE TABLET BY MOUTH EVERY 4 HOURS NEEDED FOR PAIN MAXIMUM DAILY DOSE = 6 TABLETS SOLD: 08/03/2020 [facility] Alprazolam 0.5 MG Oral Tablet ALPRAZOLAM 07/30/2020 12:00:00 AM EDT ta blet 60 TAKE 1 TABLET BY MOUTH TWICE A DAY NEEDED FOR ANXIETY & INSONMIA MAXIMUM DAILY DOSE = 2 TABLETS TAKE 1 TABLET BY MOUTH TWICE A DAY NE EDED FOR ANXIETY & INSONMIA MAXIMUM DAILY DOSE = 2 TABLETS SOLD: 08/01/2020 [facility] pantoprazole 40 MG Delayed Release Oral Tablet PANTOPRAZOLE SODIUM 07/25/2020 12:00:00 AM EDT tablet,delayed release (DR/EC) 30 T CHET 1 TABLET BY MOUTH DAILY (SWALLOW WHOLE, NO CHEWING/BREAKING/CRUSHING) TAKE 1 TABLET BY MOUTH DAILY (SWALLOW WHOLE, NO CHEWING/BREAKING/CRUSHING) SOLD: 10/29/2020 [facility] pantoprazole 40 MG Delayed Release Oral Tablet PANTOPRAZOLE SODIUM 07/25/2020 12:00:00 AM EDT tablet,delayed release (DR/EC) 30 T CHET 1 TABLET BY MOUTH DAILY (SWALLOW WHOLE, NO CHEWING/BREAKING/CRUSHING) TAKE 1 TABLET BY MOUTH DAILY (SWALLOW WHOLE, NO CHEWING/BREAKING/CRUSHING) SOLD: 03/04/2021 [facility] pantoprazole 40 MG Delayed Release Oral Tablet PANTOPRAZOLE SODIUM 07/25/2020 12:00:00 AM EDT tablet,delayed release (DR/EC) 30 T CHET 1 TABLET BY MOUTH DAILY (SWALLOW WHOLE, NO CHEWING/BREAKING/CRUSHING) TAKE 1 TABLET BY MOUTH DAILY (SWALLOW WHOLE, NO CHEWING/BREAKING/CRUSHING) SOLD: 02/02/2021 [facility] pantoprazole 40 MG Delayed Release Oral Tablet PANTOPRAZOLE SODIUM 07/25/2020 12:00:00 AM EDT tablet,delayed release (DR/EC) 30 T CHET 1 TABLET BY MOUTH DAILY (SWALLOW WHOLE, NO CHEWING/BREAKING/CRUSHING) TAKE 1 TABLET BY MOUTH DAILY (SWALLOW WHOLE, NO CHEWING/BREAKING/CRUSHING) SOLD: 09/26/2020 [facility] pantoprazole 40 MG Delayed Release Oral Tablet PANTOPRAZOLE SODIUM 07/25/2020 12:00:00 AM EDT tablet,delayed release (DR/EC) 30 T CHET 1 TABLET BY MOUTH DAILY (SWALLOW WHOLE, NO CHEWING/BREAKING/CRUSHING) TAKE 1 TABLET BY MOUTH DAILY (SWALLOW WHOLE, NO CHEWING/BREAKING/CRUSHING) SOLD: 12/29/2020 [facility] pantoprazole 40 MG Delayed Release Oral Tablet PANTOPRAZOLE SODIUM 07/25/2020 12:00:00 AM EDT tablet,delayed release (DR/EC) 30 T CHET 1 TABLET BY MOUTH DAILY (SWALLOW WHOLE, NO CHEWING/BREAKING/CRUSHING) TAKE 1 TABLET BY MOUTH DAILY (SWALLOW WHOLE, NO CHEWING/BREAKING/CRUSHING) SOLD: 08/27/2020 [facility] pantoprazole 40 MG Delayed Release Oral Tablet PANTOPRAZOLE SODIUM 07/25/2020 12:00:00 AM EDT tablet,delayed release (DR/EC) 30 T CHET 1 TABLET BY MOUTH DAILY (SWALLOW WHOLE, NO CHEWING/BREAKING/CRUSHING) TAKE 1 TABLET BY MOUTH DAILY (SWALLOW WHOLE, NO CHEWING/BREAKING/CRUSHING) SOLD: 11/30/2020 [facility] pantoprazole 40 MG Delayed Release Oral Tablet [...] EST active Methotrexate Sodium 2.5 MG eCW1 ([facility]) Folic Acid 1 MG Oral Tablet Folic Acid 1 MG 07/04/2020 12:00:00 AM EST 1.0 {tablet} active Folic Acid 1 MG eCW1 ([facility]) Folic Acid 1 MG Oral Tablet Folic Acid 1 MG 07/04/2020 12:00:00 AM EST 1.0 {tablet} active Folic Acid 1 MG eCW1 ([facility]) 1 mg 07/04/2020 12:00:00 AM EST [...] {tablet} active Folic Acid 1 MG eCW1 ([facility]) Methotrexate 2.5 MG Oral Tablet Methotrexate Sodium 2. 5 MG Methotrexate Sodium 2.5 MG 07/04/2020 12:00:00 AM EST 4.0 {tablets} acti ve Methotrexate Sodium 2.5 MG eCW1 ([facility]) Methotrexate 2.5 MG Oral Tablet Methotrexate Sodium 2. 5 MG Methotrexate Sodium 2.5 MG 07/04/2020 12:00:00 AM EST active Methotrexate Sodium 2.5 MG eCW1 ([facility]) Methotrexate 2.5 MG Oral Tablet Methotrexate Sodium 2. 5 MG Methotrexate Sodium 2.5 MG 07/04/2020 12:00:00 AM EST active Methotrexate Sodium 2.5 MG eCW1 ([facility]) Folic Acid 1 MG Oral Tablet Folic Acid 1 MG 07/04/2020 12:00:00 AM EST 1.0 {tablet} active Folic Acid 1 MG eCW1 ([facility]) Folic Acid 1 MG Oral Tablet Folic Acid 1 MG 07/04/2020 12:00:00 AM EST 1.0 {tablet} active Folic Acid 1 MG eCW1 ([facility]) Methotrexate 2.5 MG Oral Tablet Methotrexate Sodium 2. 5 MG Methotrexate Sodium 2.5 MG 07/04/2020 12:00:00 AM EST 4.0 {tablets} acti ve Methotrexate Sodium 2.5 MG eCW1 ([facility]) Folic Acid 1 MG Oral Tablet Folic Acid 1 MG 07/04/2020 12:00:00 AM EST 1.0 {tablet} active Folic Acid 1 MG eCW1 ([facility]) Folic Acid 1 MG Oral Tablet Folic Acid 1 MG 07/04/2020 12:00:00 AM EST 1.0 {tablet} active Folic Acid 1 MG eCW1 ([facility]) Methotrexate 2.5 MG Oral Tablet Methotrexate Sodium 2. 5 MG Methotrexate Sodium 2.5 MG 07/04/2020 12:00:00 AM EST active Methotrexate Sodium 2.5 MG eCW1 ([facility]) 1 mg 07/04/2020 12:00:00 AM EST tablet 30 TAKE ONE TABLET BY MOUTH EVERY DAY TAKE ONE TABLET BY MOUTH EVERY DAY SOLD: 10/08/2020 [facility] Methotrexate 2.5 MG Oral Tablet Methotrexate Sodium 2. 5 MG Methotrexate Sodium 2.5 MG 07/04/2020 12:00:00 AM EST 4.0 {tablets} acti ve Methotrexate Sodium 2.5 MG eCW1 ([facility]) Methotrexate 2.5 MG Oral Tablet Methotrexate Sodium 2. 5 MG Methotrexate Sodium 2.5 MG 07/04/2020 12:00:00 AM EST 4.0 {tablets} acti ve Methotrexate Sodium 2.5 MG eCW1 ([facility]) Methotrexate 2.5 MG Oral Tablet Methotrexate Sodium 2. 5 MG Methotrexate Sodium 2.5 MG 07/04/2020 12:00:00 AM EST 4.0 {tablets} acti ve Methotrexate Sodium 2.5 MG eCW1 ([facility]) Methotrexate 2.5 MG Oral Tablet Methotrexate Sodium 2. 5 MG Methotrexate Sodium 2.5 MG 07/04/2020 12:00:00 AM EST active eCW1 ([facility]) Folic Acid 1 MG Oral Tablet Folic Acid 1 MG 07/04/2020 12:00:00 AM EST 1.0 {tablet} active Folic Acid 1 MG eCW1 ([facility]) Methotrexate 2.5 MG Oral Tablet Methotrexate Sodium 2. 5 MG Methotrexate Sodium 2.5 MG 07/04/2020 12:00:00 AM EST active Methotrexate Sodium 2.5 MG eCW1 ([facility]) Folic Acid 1 MG Oral Tablet Folic Acid 1 MG 07/04/2020 12:00:00 AM EST 1.0 {tablet} active Folic Acid 1 MG eCW1 ([facility]) Folic Acid 1 MG Oral Tablet Folic Acid 1 MG 07/04/2020 12:00:00 AM EST 1.0 {tablet} active Folic Acid 1 MG eCW1 ([facility]) 1 mg 07/04/2020 12:00:00 AM EST [...] acti ve Methotrexate Sodium 2.5 MG eCW1 ([facility]) Folic Acid 1 MG Oral Tablet Folic Acid 1 MG 07/04/2020 12:00:00 AM EST 1.0 {tablet} active Folic Acid 1 MG eCW1 ([facility]) Methotrexate 2.5 MG Oral Tablet Methotrexate Sodium 2. 5 MG Methotrexate Sodium 2.5 MG 07/04/2020 12:00:00 AM EST active Methotrexate Sodium 2.5 MG eCW1 ([facility]) Folic Acid 1 MG Oral Tablet Folic Acid 1 MG 07/04/2020 12:00:00 AM EST 1.0 {tablet} active Folic Acid 1 MG eCW1 ([facility]) Folic Acid 1 MG Oral Tablet Folic Acid 1 MG 07/04/2020 12:00:00 AM EST 1.0 {tablet} active eCW1 ([facility]) 1 mg 07/04/2020 12:00:00 AM EST [...] acti ve Methotrexate Sodium 2.5 MG eCW1 ([facility]) Folic Acid 1 MG Oral Tablet Folic Acid 1 MG 07/04/2020 12:00:00 AM EST 1.0 {tablet} active Folic Acid 1 MG eCW1 ([facility]) Folic Acid 1 MG Oral Tablet Folic Acid 1 MG 07/04/2020 12:00:00 AM EST 1.0 {tablet} active Folic Acid 1 MG eCW1 ([facility]) Methotrexate 2.5 MG Oral Tablet Methotrexate Sodium 2. 5 MG Methotrexate Sodium 2.5 MG 07/04/2020 12:00:00 AM EST active Methotrexate Sodium 2.5 MG eCW1 ([facility]) Folic Acid 1 MG Oral Tablet Folic Acid 1 MG 07/04/2020 12:00:00 AM EST 1.0 {tablet} active Folic Acid 1 MG eCW1 ([facility]) Methotrexate 2.5 MG Oral Tablet Methotrexate Sodium 2. 5 MG Methotrexate Sodium 2.5 MG 07/04/2020 12:00:00 AM EST active Methotrexate Sodium 2.5 MG eCW1 ([facility]) 5 mg 06/14/2020 12:00:00 AM EST [...] {capsule} active Doxycycline Hyclate 100 MG eCW1 ([facility]) doxycycline hyclate 100 MG Oral Capsule Doxycycline Hy clate 100 MG Doxycycline Hyclate 100 MG 04/15/2020 12:00:00 AM EST 1.0 {capsule} active Doxycycline Hyclate 100 MG eCW1 ([facility]) Alprazolam 0.5 MG Oral Tablet ALPRAZOLAM [...] BY MOUTH TWICE A DAY SOLD: 06/19/2020 [facility] pantoprazole 40 MG Delayed Release Oral Tablet PANTOPRAZOLE SODIUM 07/27/2019 12:00:00 AM EDT tablet,delayed release (DR/EC) 30 T CHET 1 TABLET BY MOUTH DAILY (SWALLOW WHOLE, NO CHEWING/BREAKING/CRUSHING) TAKE 1 TABLET BY MOUTH DAILY (SWALLOW WHOLE, NO CHEWING/BREAKING/CRUSHING) SOLD: 05/25/2020 [facility] pantoprazole 40 MG Delayed Release Oral Tablet PANTOPRAZOLE SODIUM 07/27/2019 12:00:00 AM EDT tablet,delayed release (DR/EC) 30 T CHET 1 TABLET BY MOUTH DAILY (SWALLOW WHOLE, NO CHEWING/BREAKING/CRUSHING) TAKE 1 TABLET BY MOUTH DAILY (SWALLOW WHOLE, NO CHEWING/BREAKING/CRUSHING) SOLD: 02/24/2020 [facility] pantoprazole 40 MG Delayed Release Oral Tablet PANTOPRAZOLE SODIUM 07/27/2019 12:00:00 AM EDT tablet,delayed release (DR/EC) 30 T CHET 1 TABLET BY MOUTH DAILY (SWALLOW WHOLE, NO CHEWING/BREAKING/CRUSHING) TAKE 1 TABLET BY MOUTH DAILY (SWALLOW WHOLE, NO CHEWING/BREAKING/CRUSHING) SOLD: 06/27/2020 [facility] pantoprazole 40 MG Delayed Release Oral Tablet PANTOPRAZOLE SODIUM 07/27/2019 12:00:00 AM EDT tablet,delayed release (DR/EC) 30 T CHET 1 TABLET BY MOUTH DAILY (SWALLOW WHOLE, NO CHEWING/BREAKING/CRUSHING) TAKE 1 TABLET BY MOUTH DAILY (SWALLOW WHOLE, NO CHEWING/BREAKING/CRUSHING) SOLD: 03/26/2020 [facility] pantoprazole 40 MG Delayed Release Oral Tablet PANTOPRAZOLE SODIUM 07/27/2019 12:00:00 AM EDT tablet,delayed release (DR/EC) 30 T CHET 1 TABLET BY MOUTH DAILY (SWALLOW WHOLE, NO CHEWING/BREAKING/CRUSHING) TAKE 1 TABLET BY MOUTH DAILY (SWALLOW WHOLE, NO CHEWING/BREAKING/CRUSHING) SOLD: 04/26/2020 [facility] 50 mg 06/12/2019 12:00:00 AM EST [...] type / Coverage type Policy ID Covered alliance party ID Covered alliance party's relationship to howard Policy Howard Plan Information [facility] [id number] Self BS [facility] [id number] Self C [id number] [employer] F[employer] Commercial [id number] Self [employer]BS FHP Commercial [id number] Self [id number] [employer] Commercial [id number] Self [id number] [employer] Commercial [id number] Self [id number] [employer] Commercial [id number] Self [id number] [employer] F[employer] Commercial [id number] Self [id number] [place] [employer] [id number] [employer] F[employer] Commercial [id number] Self [id number] HMO BLUE [id number] SP [id number] [employer] [place] PPO 302/307 [id number] SP [id number] BS [facility] [employer] Part B [id number] Self BS [employer] [employer] Part B [id number] Self C [id number] BS [employer] [employer] Part B [id number] Self C [id number] BS [place] [employer] Part B [id number] 2.0.1.856763.3.227.99.991.22642.0 Self C [id number] [employer] Commercial [id number] 2.0.1.576202.3.227.99.572.13392 .0 Self [id number] [employer] Commercial [id number] Self [employer] Commercial [id number] 2.0.1.428312.3.227.99.572.18734 .0 Self [id number] [employer] Commercial [id number] 2.0.1.298522.3.227.99.572.73202 .0 Self [id number] [employer] Commercial [id number] 2.0.1.325897.3.227.99.572.34251 .0 Self [id number] BCBS FHP Commercial [id number] 2.0.1.947110.3.227.99.572.33768 .0 Self [id number] BCBS FHP Commercial [id number] 2.0.1.971964.3.227.99.572.94539 .0 Self [id number] MEDICARE [id number] SP [id number] [id number] MVP Hmo - In Network Health Maintenance Organization (HMO) [id number] 2.0.1.090238.3.227.99.572.68605.0 Self [id number] MVP Hmo/Pos Health Maintenance Organization (HMO) [id number] Self MEDICAID M [id number] Self [id number] MEDICARE [id number] SP [id number] [id number] Medicaid [place] Medigap Part B [id number] 2.0.1.300116.3.227.99.991. 86438.0 Self [id number] [place] Med[place] Part B 2.0.1.239391.3.227.99.991.52 025.0 Self [place] [id number] 2.0.1.921598.3.227.99.991. 57713.0 Self [id number] [place] Med[place] Part B [id number] 2.0.1.798814.3.227.99.991. 88577.0 Self [id number] MEDICAID [id number] SP [id number] [facility] Medigap Part B [id number] 2.0.1.757063.3.227.99.8646.48132.0 Self [id number] MEDICARE [id number] SP [id number] [place] Primary [id number] 2.0.1.062997.3.227.99.991.62747.0 Self 0 [id number] MEDICARE [id number] SP [id number] A [place] Primary 2.0.1.628648.3.227. 99.991.73207.0 Self MEDICARE A [id number] Self [id number] [place] Primary [id number] 2.0.1.689745.3.227.99.991.93115.0 Self 0 [id number] Medicare [facility] Medicare Primary [id number] 2.16.840.1.254709.3.227.99.991.75994.0 Self 0 [id number] BCBS [place] PPO 302/307 [id number] SP [id number] AARP U [id number] Self [id number] AARP HEALTH CARE OPTIONS [id number] SP [id number] AARP HEALTH CARE OPTIONS [id number] SP [id number] AARP HEALTH CARE OPTIONS [id number] SP [id number] [facility] Options Medigap Part B [id number] 2.16.840.1.252348.3.227.99.572.60196.0 Self [id number] AARP HEALTH CARE OPTIONS [id number] SP [id number] Medicare Dme Medigap Part B [id number] 2.16.840.1.879397.3.227.99 .936.94389.0 Self [id number] Medicare Medicare Primary [id number] 2.16.840.1.386346.3.227. 99.936.09300.0 Self [id number] Medicare Dme Medigap Part B [id number] 2.16.840.1.909608.3.227.99 .936.01504.0 Self [id number] Medicare [facility] Medicare Primary [id number] 2.16.840.1.495883.3.227.99.8646.84015.0 Self [id number] Medicare (Part B) Medicare Primary [id number] 2.16.840.1.948541.3.227.99.572.22082.0 Self 0 [id number] Medicare (Part B) Medicare Primary [id number] 2.16.840.1.280068.3.227.99.572.08595.0 Self 0 [id number] MEDICAID [id number] SP [id number] MEDICARE [id number] SP [id number] A Medicare (Part B) Medicare Primary [id number] 2.16.840.1.551262.3.227.99.572.68867.0 Self 0 [id number] Medicare (Part B) Medicare Primary [id number] 2.16.840.1.779643.3.227.99.572.29861.0 Self 0 [id number] Medicare (Part B) Medicare Primary [id number] 2.16.840.1.538656.3.227.99.572.97926.0 Self 0 [id number] Blue Preferred Ppo Medigap Part B [id number] 2.16.840.1.762133.3.227.99.572.02249.0 Self [id number] Medicare (Part B) Medicare Primary [id number] 2.16.840.1.201259.3.227.99.572.67654.0 Self 0 [id number] ANSI-Medicare Part B [id number] ANSI-Medicaid [id number] ANSI-Commercial em09bv0p-b2s5-4g88-a346-0r0ygn20wtdy ee17zp1b-x2u3-8i99-f226-8q3ufe36lcxa ANSI-Medicare Part B [id number] ANSI-Commercial [id number]-tq51-6404-637s-[id number] [id number]-in52-7814-512v-j5888f876g57 ANSI-Medicaid [id number] ANSI-Medicaid [id number] ANSI-Commercial 35so4z69-728f-8o36-2384-60638jzrip56 69zz6a06-899b-2h04-9217-08074tkvdx45 ANSI-Commercial ffu39930-qq57-027a-3289-3122c9s8kj73 mtv36295-jt12-976l-0362-2636t6h0ct56 ANSI-Medicare Part B [id number] ANSI-Commercial 280575sf-2e32-93aa-142k-6tv11h895lz3 834184bz-8o90-76ep-311h-6dz18c529zi2 ANSI-Medicare Part B [id number] ANSI-Commercial 406j3815-9408-9u79-1613-b894l7c34y89 [id number]-t690y8l00e01 ANSI-Medicaid [id number] ANSI-Commercial 21o6o3h0-7k08-1z2j-87hq-6581125f1d39 64f2h9j1-9a46-0n8k-57zq-5812891y5p66 ANSI-Commercial 3s7ijd70-4427-176o-038b-u07uye143e34 7m3vtt57-8477-340k-112o-t78utg242d28 ANSI-Medicaid [id number] ANSI-Medicare Part B [id number] ANSI-Medicare Part B [id number] ANSI-Commercial 17j42r45-2a71-0626-m656-6m2t7p502s7z 27h30j86-9l46-5637-v271-0v1y9t723n1u ANSI-Commercial 4f1008q0-5088-00r8-nk12-z0008x2as4yl 5h2670t2-9435-59p0-vz93-q8177v7su3mr ANSI-Medicaid [id number] ANSI-Commercial 824h29o4-6a1y-1p76-76yx-ky88hgr14gox 888o47e2-2u1q-2s69-57ab-rz52vqh82dhi ANSI-Medicaid [id number] ANSI-Commercial 03njis13-0wry-25t0-086r-[id number] 58vtvk28-4era-23u8-577x-79x889779224 ANSI-Medicare Part B [id number] [facility] CARE OPTIONS [id number] SP [id number] ANSI-Commercial [id number]-w09f-6z33-8l7z-702h232o4x2x v4572011-i77a-3r24-0u0w-720q951i9o8z ANSI-Commercial 67342i86-3172-2o00-1t64-5gn5cq300r39 14364y40-7931-5c53-2w54-6ms1hi177l24 ANSI-Medicaid [id number] ANSI-Medicare Part B [id number] [facility] [id number] [facility] [id number] ANSI-Commercial [id number]-sd5c3z4o6762 3z871931-1lh9-8c96-1e07-vh9k5o3h1123 ANSI-Commercial 7x7p4460-2680-8ob9-6v8q-612wekrd504b 8a2w2255-8915-6pe6-7q1c-523dasvj046y ANSI-Commercial 0z5g87nv-101t-9910-v4o8-1b01qu10x0za 7q6z58jj-035y-4740-o9f1-0j29dv24y6ez ANSI-Medicare Part B [id number] ANSI-Medicaid [id number] ANSI-Commercial 477kosg4-89e1-70v6-wahz-z921j664n6o4 215cnsd2-59j9-63o2-twyp-y857r233h2s0 ANSI-Commercial v25h2923-81o0-8ae0-h876-6t8ekvjvzca1 r40c8379-21s6-7bu2-i599-2p4mrbjvwpy8 ANSI-Medicaid [id number] ANSI-Medicare Part B [id number] ANSI-Commercial s60bcjca-bj9o-2360-6g9t-b8t7617c395v p27cagsa-dz2j-5564-2a1r-d5g5562s985d MEDICARE [id number] SP [id number] AARP HEALTH CARE OPTIONS [id number] SP [id number] AARP HEALTH CARE OPTIONS [id number] SP [id number] AARP HEALTH CARE OPTIONS [id number] SP [id number] SELF PAY ONLY [id number] SP [id number] [place] O [id number] S [id number] AARP O [id number] S [id number] MEDICARE C [id number] S [id number] ANSI-Medicare Part B [id number] ANSI-Commercial m135i101-91e1-61h1-5hc2-5n395x6k5393 i700a344-28k3-66r3-8za5-2g063a9e7441 ANSI-Commercial 39lu687d-9fen-8qon-dv21-8d790n17q54h 47lr917c-1jsv-8rft-ij68-4t653l39h12y ANSI-Medicaid [id number] ANSI-Medicare Part B [id number] ANSI-Commercial 948e8994-4z8i-8990-3i1v-w8k9vwfah109 385m2374-9a4u-1730-6q8q-a8p6sfldh568 ANSI-Commercial 2789b2hf-c9g2-22r9-9pkw-33s68f0nzq51 8305z9jz-k7q8-88d9-3rcr-09n85w1xar93 ANSI-Medicaid [id number] ANSI-Medicaid [id number] ANSI-Medicare Part B [id number] ANSI-Commercial 957h54ax-53tf-5704-g9vd-2l10yuuoc95v 661k78hl-79fj-2095-h8xn-1h00ryxnr49x ANSI-Commercial fx521z86-1v93-0guh-0zx2-90u5ra13y647 jq696k86-7p88-1olo-8pt3-21n9bv84p058 ANSI-Medicare Part B [id number] ANSI-Commercial 5041t3k0-fm9b-8kz5-78u6-a884qk919oj6 4560y7m2-ba4y-2cy1-17s6-y697hz260xr2 ANSI-Commercial 8l044d23-3009-1f74-3e5g-s2262cqp4862 0s979k69-1894-6f18-1n7d-i0451ldj5640 ANSI-Medicaid [id number] ANSI-Commercial 90l18614-10f0-327a-e0d3-2m11l529k698 79m08452-28s8-426v-a2k5-6f63p680v186 ANSI-Commercial r1ay56pf-9g88-5y26-4wts-ku35qd4k5372 x0qm12cd-7i33-6z39-8goh-id65vd4r0193 ANSI-Medicaid [id number] ANSI-Medicare Part B [id number] EXCELLUS BS B [id number] S [id number] [facility] Health Maintenance Organization (HMO) [id number]646.35663.0 Self MEDICAID [id number] SP [id number] Blue Preferred Ppo Medigap Part B [id number] Self Medicaid Medicaid [id number] Self [facility] PHY [id number] SP [id number] SELF PAY UNAVAILABLE UNAVAILA BLE MEDICAID [id number] SP [id number] BLUE CROSS GREGORIO PLAN [id number] SP [id number] [place] 305/805 [id number] SP [id number] MEDICARE C [id number] S [id number] A Medicare Medicare Primary 2.16.840.1.050916.3.227.99.936.26 853.0 Self Medicare Medicare Primary [id number] 2.16.840.1.553840.3.227. 99.936.81171.0 Self [id number] Medicare Medicare Primary [id number] 2.16.840.1.915990.3.227. 99.936.74610.0 Self [id number] Medicare Medicare Primary [id number] 2.16.840.1.842056.3.227. 99.936.40678.0 Self [id number] Medicare Medicare Primary [id number] 2.16.840.1.826997.3.227. 99.936.54482.0 Self [id number] Medicare Medicare Primary [id number] 2.16.840.1.692518.3.227. 99.936.67047.0 Self [id number] Medicare Medicare Primary [id number] 2.16.840.1.337737.3.227. 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 Diagnosis 01/30/2021 01:53:00 PM EDT [facility] D84.9 Immunodeficiency, unspecified Immunodeficiency, unspec ified Diagnosis 01/30/2021 01:53:00 PM [facility] no dx no dx Diagnosis 05/10/2020 02:48:00 PM Health system H91.90 [id number] Hearing disorder, unspecified laterality Problem 03/09/2021 12:00:00 AM EST eCW1 ([facility]) 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.52 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 Problem 11/24/2020 12:00:00 AM EDT eCW1 ([facility]) M89.49 [id number] Primary osteoarthritis involving multiple joints Problem 11/24/2020 12:00:00 AM EDT eCW1 ([facility]) Z00.00 [id number] Medicare annual wellness visit, subsequen t Problem 11/18/2020 12:00:00 AM EDT eCW1 ([facility]) I89.0 Lymphedema Lymphedema Problem 08/29/2020 12:00:00 AM ED T eCW1 ([facility]) M17.0 [id number] Primary osteoarthritis of both knees Prob lakisha 06/20/2020 12:00:00 AM EST eCW1 ([facility]) M05.79 [id number] 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 rheumatoid factor Problem 06/20/2020 12:00:00 AM EST eCW1 ([facility]) Z94.1 [id number] Heart transplant recipient Problem 12:00:00 AM EST eCW1 ([facility]) M06.9 512998436 Rheumatoid arthritis involving multiple sites, unspecified whether rheumatoid factor present Problem 04/04/2020 12:00:00 AM EST eCW1 ([facility]) I89.0 910009498 Lymphedema of arm Problem 03/30/2020 12:00:0 0 AM EST eCW1 ([facility]) Surgeries/Procedures Procedure Description Date Indications Data Source(s) Inject/Drain Arthrocentesis Major Joint/Bursa/Ganglion Cyst 03/03/2021 12:00:00 AM EDT [facility] ([facility]) OFFICE OUTPATIENT VISIT 25 MINUTES 03/03/2021 12:00:00 AM EDT [facility] ([facility]) OFFICE OUTPATIENT NEW 30 MINUTES 02/15/2021 12:00:00 A M EDT [facility] ([facility] ) OFFICE OUTPATIENT NEW 45 MINUTES 02/15/2021 12:00:00 A M EDT [facility] ([facility]) Results ID Date Data Source [id number] 03/09/2021 10:06:11 AM [facility] Value Range Interpretation Code Description Data Allegra rce(s) Supporting Document(s) Sirolimus [Mass/volume] in Blood 4.1 ng/mL 6.5-15.0 L [facility] (NOTE)The stated therapeutic range is ba sed on a trough specimen, with the patient in the maintenance phase, and in combination with cyclosporine for a kidney transplant. ID Date Data Source [id number] 03/07/2021 02:53:40 PM [facility] Value Range Interpretation Code Description Data Allegra rce(s) Supporting Document(s) Tacrolimus [Mass/volume] in Blood 7.7 ng/mL [facility] Renal Transplant Target ValuesImmediate post-transplant: 10 - 15 ng/mL First 6 months: 6 - 15 ng/mL Greater than 6 months: 6 - 15 ng/mL ID Date Data Source [id number] 01/31/2021 09:06:01 AM [facility] Value Range Interpretation Code Description Data Allegra rce(s) Supporting Document(s) Sirolimus [Mass/volume] in Blood 8.9 ng/mL 6.5-15.0 [facility] (NOTE)The stated therapeutic range is ba sed on a trough specimen, with the patient in the maintenance phase, and in combination with cyclosporine for a kidney transplant. ID Date Data Source [id number] 01/30/2021 03:40:25 PM [facility] Value Range Interpretation Code Description Data Allegra rce(s) Supporting Document(s) Tacrolimus [Mass/volume] in Blood 8.5 ng/mL [facility] Renal Transplant Target ValuesImmediate post-transplant: 10 - 15 ng/mL First 6 months: 6 - 15 ng/mL Greater than 6 months: 6 - 15 ng/mL ID Date Data Source [id number] 12/28/2020 08:30:25 AM [facility] Value Range Interpretation Code Description Data Allegra rce(s) Supporting Document(s) Cyclosporine [Mass/volume] in Blood [facility] Therapeutic: ng/mLRenal Transplan t: 100-250Liver Translpant: 100- 400Cardiac Transplant:100-400Bone Marrow: 200-300 ID Date Data Source [id number] 12/28/2020 08:30:18 AM EDT [facility] Name Value Range Interpretation Code Description Data Allegra rce(s) Supporting Document(s) Tacrolimus [Mass/volume] in Blood 7.1 ng/mL [facility] Renal Transplant Target ValuesImmediate post-transplant: 10 - 15 ng/mL First 6 months: 6 - 15 ng/mL Greater than 6 months: 6 - 15 ng/mL ID Date Data Source [id number] SEDIMENTATION RATE 11/24/2020 12:00:00 AM EDT eC W1 ([facility]) Name Value Range Interpretation Code Description Data Allegra rce(s) Supporting Document(s) 17 0-30 eCW1 ([facility]) ID Date Data Source C REACTIVE PROTEIN QUANTITATIV (At [facility]) 11/24/2020 12:00 :00 AM EDT eCW1 ([facility]) Name Value Range Interpretation Code Description Data Allegra rce(s) Supporting Document(s) 0.30 0.00-0.30 eCW1 ([facility]) ID Date Data Source Comprehensive Metabolic Profile (CMP) 11/24/2020 12:00:00 AM EDT eCW1 ([facility]) Name Value Range Interpretation Code Description Data Allegra rce(s) Supporting Document(s) 84 70-100 eCW1 ([facility]) 9 7-18 eCW1 ([facility]) 145 136-145 eCW1 ([facility]) 4.2 3.5-5.1 eCW1 ([facility]) > 60.0 >51 eCW1 ([facility]) 0.84 0.55-1.30 eCW1 ([facility]) 25 7-37 eCW1 ([facility]) 9.4 8.5-10.1 eCW1 ([facility]) 106 98-107 eCW1 ([facility]) 33 21-32 eCW1 ([facility]) 65 45-117 eCW1 ([facility]) 0.4 0.2-1.0 eCW1 ([facility]) 26 12-78 eCW1 ([facility]) 3.6 3.2-5.2 eCW1 ([facility]) 1.2 1.2-2.2 eCW1 ([facility]) 6.6 6.4-8.2 eCW1 ([facility]) ID Date Data Source CBC with Differential 11/24/2020 12:00:00 AM EDT eCW1 ([facility]ending [facility] to [facility]) Name Value Range Interpretation Code Description Data Allegra rce(s) Supporting Document(s) 2.7 4.0-10.0 eCW1 ([facility]) 14.1 12.0-15.5 eCW1 ([facility]) 3.80 4.00-5.40 eCW1 ([facility]) 42.4 36.0-47.0 eCW1 ([facility]) 37.1 27.0-33.0 eCW1 ([facility]) 111.6 80.0-96.0 eCW1 ([facility]) 33.3 32.0-36.5 eCW1 ([facility]) 13.1 11.5-14.5 eCW1 ([facility]) 229 150-450 eCW1 ([facility]) ID Date Data Source [id number] 11/12/2020 09:17:00 AM EDT [facility] Name Value Range Interpretation Code Description Data Allegra rce(s) Supporting Document(s) SARS-CoV-2 RNA Pnl Spec SAAD+probe NEG [facility] This lab was ordered by [facility] ([facility]) and reported by [facility]. ID Date Data Source [id number] 11/11/2020 08:44:00 PM EDT [facility] Name Value Range Interpretation Code Description Data Allegra rce(s) Supporting Document(s) SARS-CoV-2 (COVID 19) NEGATIVE - SARS-CoV-2 (COVID19) [facility] This lab was ordered by [facility] a nd reported by . ID Date Data Source [id number] 10/29/2020 08:22:00 AM EDT [facility] Name Value Range Interpretation Code Description Data Allegra rce(s) Supporting Document(s) SARS-CoV-2 (COVID 19) NEGATIVE - SARS-CoV-2 (COVID19) [facility] This lab was ordered by [facility] a nd reported by . ID Date Data Source [id number] 10/20/2020 09:44:00 AM EDT [facility] Name Value Range Interpretation Code Description Data Allegra rce(s) Supporting Document(s) SARS-CoV-2 RNA Pnl Spec SAAD+probe NEG [facility] This lab was ordered by [address] and reported by [facility]. ID Date Data Source [id number] 09/01/2020 08:31:44 AM EDT [facility] Name Value Range Interpretation Code Description Data Allegra rce(s) Supporting Document(s) Sirolimus [Mass/volume] in Blood 6.5-15.0 L [facility] (NOTE)The stated therapeutic range is ba sed on a trough specimen, with the patient in the maintenance phase, and in combination with cyclosporine for a kidney transplant. ID Date Data Source [id number] 08/31/2020 09:22:52 AM EDT [facility] Name Value Range Interpretation Code Description Data Allegra rce(s) Supporting Document(s) Tacrolimus [Mass/volume] in Blood 10.7 ng/mL [facility] Renal Transplant Target ValuesImmediate post-transplant: 10 - 15 ng/mL First 6 months: 6 - 15 ng/mL Greater than 6 months: 6 - 15 ng/mL ID Date Data Source [id number] 07/28/2020 11:20:00 AM EDT [facility] Name Value Range Interpretation Code Description Data Allegra rce(s) Supporting Document(s) SARS-CoV-2 (COVID-19) RNA [Presence] in Respiratory specimen by SAAD with probe detection Not Detected [facility] This lab was ordered by [facility] and reported by [facility]. ID Date Data Source [id number] 07/26/2020 09:15:40 AM [facility] Value Range Interpretation Code Description Data Allegra rce(s) Supporting Document(s) Sirolimus [Mass/volume] in Blood 6.5-15.0 L [facility] (NOTE)The stated therapeutic range is ba sed on a trough specimen, with the patient in the maintenance phase, and in combination with cyclosporine for a kidney transplant. ID Date Data Source [id number] 07/26/2020 08:35:40 AM [facility] Value Range Interpretation Code Description Data Allegra rce(s) Supporting Document(s) Tacrolimus [Mass/volume] in Blood 9.2 ng/mL [facility] Renal Transplant Target ValuesImmediate post-transplant: 10 - 15 ng/mL First 6 months: 6 - 15 ng/mL Greater than 6 months: 6 - 15 ng/mL ID Date Data Source [id number] 07/12/2020 10:16:06 AM [facility] Value Range Interpretation Code Description Data Allegra rce(s) Supporting Document(s) Sirolimus [Mass/volume] in Blood 6.5-15.0 [facility] (NOTE)The stated therapeutic range is ba sed on a trough specimen, with the patient in the maintenance phase, and in combination with cyclosporine for a kidney transplant. ID Date Data Source [id number] 07/12/2020 09:25:04 AM [facility] Value Range Interpretation Code Description Data Allegra rce(s) Supporting Document(s) Tacrolimus [Mass/volume] in Blood 9.6 ng/mL [facility] Renal Transplant Target ValuesImmediate post-transplant: 10 - 15 ng/mL First 6 months: 6 - 15 ng/mL Greater than 6 months: 6 - 15 ng/mL ID Date Data Source [id number] 05/12/2020 12:43:53 PM [facility] Value Range Interpretation Code Description Data Allegra rce(s) Supporting Document(s) Sirolimus [Mass/volume] in Blood 7.1 ng/mL 6.5-15.0 [facility] (NOTE)The stated therapeutic range is ba sed on a trough specimen, with the patient in the maintenance phase, and in combination with cyclosporine for a kidney transplant. ID Date Data Source [id number] 05/11/2020 09:36:18 AM [facility] Name Value Range Interpretation Code Description Data Allegra rce(s) Supporting Document(s) Tacrolimus [Mass/volume] in Blood 6.0 ng/mL [facility] Renal Transplant Target ValuesImmediate post-transplant: 10 - 15 ng/mL First 6 months: 6 - 15 ng/mL Greater than 6 months: 6 - 15 ng/mL ID Date Data Source [id number] 04/26/2020 10:10:12 AM [facility] Value Range Interpretation Code Description Data Allegra rce(s) Supporting Document(s) Tacrolimus [Mass/volume] in Blood 5.7 ng/mL [facility] Renal Transplant Target ValuesImmediate post-transplant: 10 - 15 ng/mL First 6 months: 6 - 15 ng/mL Greater than 6 months: 6 - 15 ng/mL ID Date Data Source [id number] 04/26/2020 09:14:08 AM [facility] Value Range Interpretation Code Description Data Allegra rce(s) Supporting Document(s) Sirolimus [Mass/volume] in Blood 6.7 ng/mL 6.5-15.0 [facility] (NOTE)The stated therapeutic range is ba sed on a trough specimen, with the patient in the maintenance phase, and in combination with cyclosporine for a kidney transplant. ID Date Data Source [id number] 04/12/2020 12:00:00 AM EST [facility] Name Value Range Interpretation Code Description Data Allegra rce(s) Supporting Document(s) SARS-CoV-2 (COVID-19) RNA [Presence] in Respiratory specimen by SAAD with probe detection [facility] This lab was ordered by [facility] and reported by [facility]. ID Date Data Source [id number] 03/31/2020 09:41:39 AM [facility] Value Range Interpretation Code Description Data Allegra rce(s) Supporting Document(s) Sirolimus [Mass/volume] in Blood 10.8 ng/mL 6.5-15.0 [facility] (NOTE)The stated therapeutic range is ba sed on a trough specimen, with the patient in the maintenance phase, and in combination with cyclosporine for a kidney transplant. ID Date Data Source [id number] 03/30/2020 08:51:20 AM [facility] Name Value Range Interpretation Code Description Data Allegra rce(s) Supporting Document(s) Tacrolimus [Mass/volume] in Blood 10.2 ng/mL [facility] Renal Transplant Target ValuesImmediate post-transplant: 10 - 15 ng/mL First 6 months: 6 - 15 ng/mL Greater than 6 months: 6 - 15 ng/mL ID Date Data Source [id number] 03/02/2020 12:00:00 AM EST [facility] Name Value Range Interpretation Code Description Data Allegra rce(s) Supporting Document(s) SARS coronavirus 2 RNA [Presence] in Res piratory specimen by SAAD with probe detection [facility] This lab was ordered by Noemi Mina and reported by [facility]. ID Date Data Source [id number] 02/18/2020 10:50:55 AM EDT [facility] Name Value Range Interpretation Code Description Data Allegra rce(s) Supporting Document(s) Sirolimus [Mass/volume] in Blood 5.3 ng/mL 6.5-15.0 L [facility] (NOTE)The stated therapeutic range is ba sed on a trough specimen, with the patient in the maintenance phase, and in combination with cyclosporine for a kidney transplant. ID Date Data Source [id number] 02/17/2020 09:10:19 AM EDT [facility] Name Value Range Interpretation Code Description Data Allegra rce(s) Supporting Document(s) Tacrolimus [Mass/volume] in Blood 5.9 ng/mL [facility] Renal Transplant Target ValuesImmediate post-transplant: 10 - 15 ng/mL First 6 months: 6 - 15 ng/mL Greater than 6 months: 6 - 15 ng/mL Procedure Social History Code Duration Value Status Description Data Source(s ) Smoking 02/22/2021 12:00:00 AM EDT Former Smoker completed Former Smoker eCW1 ([facility]) Smoking 02/22/2021 12:00:00 AM EDT Former Smoker completed Former Smoker eCW1 ([facility]) Smoking 02/15/2021 12:00:00 AM EDT Patient is a former smoker completed Patient is a former smoker MEDENT ([facility], ) Smoking 02/02/2021 12:00:00 AM EDT Former Smoker completed Former Smoker eCW1 ([facility]) Smoking 02/02/2021 12:00:00 AM EDT Former Smoker completed Former Smoker eCW1 ([facility]) Smoking 02/02/2021 12:00:00 AM EDT Former Smoker completed Former Smoker eCW1 ([facility]) Smoking 11/24/2020 12:00:00 AM EDT Former Smoker completed Former Smoker eCW1 ([facility]) Smoking 11/24/2020 12:00:00 AM EDT Former Smoker completed Former Smoker eCW1 ([facility]) Smoking 11/24/2020 12:00:00 AM EDT Former Smoker completed Former Smoker eCW1 ([facility]) Smoking 11/18/2020 12:00:00 AM EDT Former Smoker completed Former Smoker eCW1 ([facility]) Smoking 09/14/2020 12:00:00 AM EDT Former Smoker completed Former Smoker eCW1 ([facility]) Smoking 09/14/2020 12:00:00 AM EDT Former Smoker completed Former Smoker eCW1 ([facility]) Smoking 09/14/2020 12:00:00 AM EDT Former Smoker completed Former Smoker eCW1 ([facility]) Smoking 07/20/2020 12:00:00 AM EDT Former Smoker completed Former Smoker eCW1 ([facility]) Smoking 07/20/2020 12:00:00 AM EDT Former Smoker completed Former Smoker eCW1 ([facility]) Smoking 07/20/2020 12:00:00 AM EDT Former Smoker completed Former Smoker eCW1 ([facility]) Smoking 06/20/2020 12:00:00 AM EST Former Smoker completed Former Smoker eCW1 ([facility]) Smoking 06/20/2020 12:00:00 AM EST Former Smoker completed Former Smoker eCW1 ([facility]) Smoking 06/20/2020 12:00:00 AM EST Former Smoker completed Former Smoker eCW1 ([facility]) Smoking 04/04/2020 12:00:00 AM EST Former Smoker completed Former Smoker eCW1 ([facility]) Smoking 04/04/2020 12:00:00 AM EST Former Smoker completed Former Smoker eCW1 ([facility]) Smoking 04/04/2020 12:00:00 AM EST Former Smoker completed Former Smoker eCW1 ([facility]) Smoking 03/30/2020 12:00:00 AM EST Former Smoker completed Former Smoker eCW1 ([facility]) Smoking 03/14/2020 12:00:00 AM EST Former Smoker completed Former Smoker eCW1 ([facility]) Vital Signs ID Date Data Source UNK Name Value Range Interpretation Code Description Data Source(s) Body weight 202 [lb_av] 202 [lb_av] eCW1 (Pending sale to [facility]) Body height 65.75 [in_i] 65.75 [in_i] eCW1 ([facility]) Body mass index (BMI) [Ratio] 32.85 kg/m2 32.85 kg/m2 eCW1 ([facility]) Heart rate 128 /min 128 /min eCW1 ([facility]) Respiratory rate 18 /min 18 /min eCW1 ([facility]) Body temperature 98.2 [degF] 98.2 [degF] eCW1 ( [facility]) Systolic blood pressure 110 mm[Hg] 110 mm[Hg] e CW1 ([facility]) Diastolic blood pressure 60 mm[Hg] 60 mm[Hg] eCW1 ([facility]) Body weight 90.947 kg 90.947 kg [facility] ([facility], ) Body temperature 98.3 [degF] 98.3 [degF] MEDENT ([facility]) Body surface area Derived from formula 2.02 m2 2.02 m2 [facility] ([facility], ) Body height 67 [in_i] 67 [in_i] MEDENT ([facility]) 5'7" Body weight 200.50 [lb_av] 200.50 [lb_av] MEDEN T ([facility]) Body mass index (BMI) [Ratio] 31.4 kg/m2 31.4 k g/m2 [facility] ([facility], ) [place] body weight 135 [lb_av] 135 [lb_av] MEDEN T ([facility], ) Body weight 202.4 [lb_av] 202.4 [lb_av] eCW1 ([facility]) Body weight 91.81 kg 91.81 kg eCW1 ([facility]) Body height 65.75 [in_i] 65.75 [in_i] eCW1 ([facility]) Body mass index (BMI) [Ratio] 32.91 kg/m2 32.91 kg/m2 eCW1 ([facility]) Heart rate 115 /min 115 /min eCW1 ([facility]) Respiratory rate 18 /min 18 /min eCW1 ([facility]) Body temperature 98.3 [degF] 98.3 [degF] eCW1 ( [facility]) Systolic blood pressure 118 mm[Hg] 118 mm[Hg] e CW1 ([facility]) Diastolic blood pressure 78 mm[Hg] 78 mm[Hg] eCW1 ([facility]) Body weight 203.4 [lb_av] 203.4 [lb_av] eCW1 ([facility]) Body weight 92.3 kg 92.3 kg eCW1 ([facility]) Body height 65.75 [in_i] 65.75 [in_i] eCW1 ([facility]) Body mass index (BMI) [Ratio] 33.08 kg/m2 33.08 kg/m2 eCW1 ([facility]) Heart rate 118 /min 118 /min eCW1 ([facility]) Respiratory rate 18 /min 18 /min eCW1 ([facility]) Body temperature 98.6 [degF] 98.6 [degF] eCW1 ( [facility]) Systolic blood pressure 128 mm[Hg] 128 mm[Hg] e CW1 ([facility]) Diastolic blood pressure 78 mm[Hg] 78 mm[Hg] eCW1 ([facility]) Body weight 200.4 [lb_av] 200.4 [lb_av] eCW1 ([facility]) Body height 65.75 [in_i] 65.75 [in_i] eCW1 ([facility]) Body mass index (BMI) [Ratio] 32.59 kg/m2 32.59 kg/m2 eCW1 ([facility]) Heart rate 132 /min 132 /min eCW1 ([facility]) Respiratory rate 18 /min 18 /min eCW1 ([facility]) Body temperature 98.6 [degF] 98.6 [degF] eCW1 ( [facility]) Systolic blood pressure 110 mm[Hg] 110 mm[Hg] e CW1 ([facility]) Diastolic blood pressure 76 mm[Hg] 76 mm[Hg] eCW1 ([facility]) Body weight 207 [lb_av] 207 [lb_av] eCW1 ([facility]ending sale to [facility]) Body weight 93.89 kg 93.89 kg eCW1 ([facility]) Body height 65.75 [in_i] 65.75 [in_i] eCW1 ([facility]) Body mass index (BMI) [Ratio] 33.66 kg/m2 33.66 kg/m2 eCW1 ([facility]) Heart rate 102 /min 102 /min eCW1 ([facility]) Respiratory rate 18 /min 18 /min eCW1 ([facility]) Body temperature 97.5 [degF] 97.5 [degF] eCW1 ( [facility]) Systolic blood pressure 124 mm[Hg] 124 mm[Hg] e CW1 ([facility]) Diastolic blood pressure 80 mm[Hg] 80 mm[Hg] eCW1 ([facility]) Body weight 211 [lb_av] 211 [lb_av] eCW1 ([facility]ending sale to [facility]) Body weight 211 [lb_av] 211 [lb_av] eCW1 ([facility]ending sale to [facility]) Body height 65.75 [in_i] 65.75 [in_i] eCW1 ([facility]) Body mass index (BMI) [Ratio] 34.31 kg/m2 34.31 kg/m2 eCW1 ([facility]) Heart rate 127 /min 127 /min eCW1 ([facility]) Respiratory rate 18 /min 18 /min eCW1 ([facility]) Body temperature 97.1 [degF] 97.1 [degF] eCW1 ( [facility]) Systolic blood pressure 122 mm[Hg] 122 mm[Hg] e CW1 ([facility]) Diastolic blood pressure 62 mm[Hg] 62 mm[Hg] eCW1 ([facility]) Body height 65.75 [in_i] 65.75 [in_i] eCW1 ([facility]) Body mass index (BMI) [Ratio] 34.31 kg/m2 34.31 kg/m2 eCW1 ([facility]) Heart rate 127 /min 127 /min eCW1 ([facility]) Respiratory rate 18 /min 18 /min eCW1 ([facility]) Body temperature 97.1 [degF] 97.1 [degF] eCW1 ( [facility]) Systolic blood pressure 122 mm[Hg] 122 mm[Hg] e CW1 ([facility]) Diastolic blood pressure 62 mm[Hg] 62 mm[Hg] eCW1 ([facility]) Body height 67 [in_i] 67 [in_i] [facility] ([facility], ) 5'7" Body weight 208.25 [lb_av] 208.25 [lb_av] MEDEN T ([facility], ) Body mass index (BMI) [Ratio] 32.6 kg/m2 32.6 k g/m2 [facility] ([facility], ) [place] body weight 135 [lb_av] 135 [lb_av] MEDEN T ([facility], ) Body weight 94.462 kg 94.462 kg [facility] ([facility], ) Body surface area Derived from formula 2.06 m2 2.06 m2 [facility] ([facility], ) Diastolic blood pressure 80 mm[Hg] 80 mm[Hg] [facility] ([facility], ) Body height 67 [in_i] 67 [in_i] [facility] ([facility]) 5'7" Body weight 208.25 [lb_av] 208.25 [lb_av] MEDEN T ([facility]) Body mass index (BMI) [Ratio] 32.6 kg/m2 32.6 k g/m2 [facility] ([facility]) Systolic blood pressure 132 mm[Hg] 132 mm[Hg] M EDENT ([facility]) [place] body weight 135 [lb_av] 135 [lb_av] MEDEN T ([facility]) Body weight 94.462 kg 94.462 kg [facility] ([facility]) Body surface area Derived from formula 2.06 m2 2.06 m2 [facility] ([facility]) Body weight 209.8 [lb_av] 209.8 [lb_av] eCW1 ([facility]) Body weight 95.1 kg 95.1 kg eCW1 ([facility]) Body height 65.75 [in_i] 65.75 [in_i] eCW1 ([facility]) Body mass index (BMI) [Ratio] 34.12 kg/m2 34.12 kg/m2 W1 ([facility]) Heart rate 129 /min 129 /min eCW1 ([facility]) Respiratory rate 18 /min 18 /min eCW1 ([facility]) Body temperature 97.6 [degF] 97.6 [degF] eCW1 ( [facility]) Systolic blood pressure 106 mm[Hg] 106 mm[Hg] e CW1 ([facility]) Diastolic blood pressure 66 mm[Hg] 66 mm[Hg] eCW1 ([facility]) Body height 65.75 [in_i] 65.75 [in_i] eCW1 ([facility]) Body mass index (BMI) [Ratio] 33.53 kg/m2 33.53 kg/m2 eCW1 ([facility]) Systolic blood pressure 122 mm[Hg] 122 mm[Hg] e CW1 ([facility]) Body temperature 98.3 [degF] 98.3 [degF] eCW1 ( [facility]) Diastolic blood pressure 60 mm[Hg] 60 mm[Hg] eCW1 ([facility]) Body weight 93.5 kg 93.5 kg eCW1 ([facility]) Body weight 206.2 [lb_av] 206.2 [lb_av] eCW1 ([facility]) Heart rate 96 /min 96 /min eCW1 ([facility]) Respiratory rate 18 /min 18 /min eCW1 ([facility]) Body weight 205 [lb_av] 205 [lb_av] eCW1 (Pending sale to [facility]) Body height 65.75 [in_i] 65.75 [in_i] eCW1 ([facility]) Body mass index (BMI) [Ratio] 33.34 kg/m2 33.34 kg/m2 eCW1 ([facility]) Heart rate 129 /min 129 /min eCW1 ([facility]) Respiratory rate 18 /min 18 /min eCW1 ([facility]) Body temperature 98.7 [degF] 98.7 [degF] eCW1 ( [facility]) Systolic blood pressure 118 mm[Hg] 118 mm[Hg] e CW1 ([facility]) Diastolic blood pressure 76 mm[Hg] 76 mm[Hg] eCW1 ([facility]) Body weight 198.0 [lb_av] 198.0 [lb_av] eCW1 ([facility]) Body weight 89.81 kg 89.81 kg eCW1 ([facility]) Body height 65.75 [in_i] 65.75 [in_i] eCW1 ([facility]) Body mass index (BMI) [Ratio] 32.2 kg/m2 32.2 k g/m2 eCW1 ([facility]) Heart rate 127 /min 127 /min eCW1 ([facility]) Body temperature 97.7 [degF] 97.7 [degF] eCW1 ( [facility]) Patient Treatment Plan of Care Planned Activity Planned Date Details Description Data Source (s) famciclovir 500 MG Oral Tablet 11/18/2020 12:00:00 AM EDT eCW1 ([facility]) Folic Acid 1 MG Oral Tablet 07/04/2020 12:00:00 AM EST eCW1 ([facility]) Folic Acid 1 MG Oral Tablet 07/04/2020 12:00:00 AM EST eCW1 ([facility]) Methotrexate 2.5 MG Oral Tablet 07/04/2020 12:00:00 AM EST eCW1 ([facility]) Methotrexate 2.5 MG Oral Tablet 07/04/2020 12:00:00 AM EST eCW1 ([facility]) Methotrexate 2.5 MG Oral Tablet 07/04/2020 12:00:00 AM EST eCW1 ([facility]) Methotrexate 2.5 MG Oral Tablet 07/04/2020 12:00:00 AM EST eCW1 ([facility]) Folic Acid 1 MG Oral Tablet 07/04/2020 12:00:00 AM EST eCW1 ([facility]) Methotrexate 2.5 MG Oral Tablet 07/04/2020 12:00:00 AM EST eCW1 ([facility]) doxycycline hyclate 100 MG Oral Capsule 04/15/2020 12:00:00 AM EST eCW1 ([facility]) doxycycline hyclate 100 MG Oral Capsule 04/15/2020 12:00:00 AM EST eCW1 ([facility])
[2021-03-30 01:59] LABS: ERYTHROCYTE SEDIMENTATION RATE 28 mm/hr (0-30)
--- NOTE | 2021-03-30 02:27 | REPVR ---
PROCEDURE INFORMATION: Exam: XR Right Shoulder Exam date and time: 03/30/2021 12:42 AM Age: 55 years old Clinical indication: Pain; Shoulder; Right; Additional info: Septic arthritis TECHNIQUE: Imaging protocol: XR Right shoulder. Views: 2 or more views. COMPARISON: 1. CR Chest, 1 view 2021-03-30 00:[address] Chest without contrast 2020-11-11 20:15 3. CR Chest, 2 view PA, Lat 2020-11-11 16:07 4. CR PORTABLE CHEST X-RAY 2020-10-29 08:25 FINDINGS: Bones/joints: Increased widening of the subacromial joint space indicating a joint effusion. Could be infected. No obvious bone erosion. Soft tissues: Dissection clips in the right axilla. IMPRESSION: Increased widening of the subacromial joint space indicating a significant joint effusion. Could be infected. No obvious bone erosion. Electronically signed by: Memo Ryan On 03/30/2021 02:27:29 AM
--- NOTE | 2021-03-30 02:27 | REPVR ---
PROCEDURE INFORMATION: Exam: XR Chest Exam date and time: 03/30/2021 12:42 AM Age: 55 years old Clinical indication: Fever TECHNIQUE: Imaging protocol: XR of the chest. Views: 1 view. COMPARISON: 1. CT Chest without contrast 2020-11-11 20:15 2. CR Chest, 2 view PA, Lat 2020-11-11 16:07 3. CR PORTABLE CHEST X-RAY 2020-10-29 08:25 FINDINGS: Tubes, catheters and devices: There are sternal wires consistent with a previous sternotomy incision. There are sternal wires consistent with a previous sternotomy incision. Lungs: Left lung base subsegmental atelectasis. Pleural spaces: Unremarkable. No pleural effusion. No pneumothorax. Heart/Mediastinum: Unremarkable. No cardiomegaly. Bones/joints: Unremarkable. IMPRESSION: Left lung base subsegmental atelectasis. No acute airspace disease. Electronically signed by: Memo Ryan On 03/30/2021 02:26:26 AM
[2021-03-30] MEDS ORDERED: PROHANCE 279.3MG/ML 15ML VIAL As Ordered ONE (05:26)
--- NOTE | 2021-03-30 07:37 | REPVR ---
PROCEDURE INFORMATION: Exam: MR Right Upper Extremity Joint Without and With Contrast; Shoulder Exam date and time: 03/30/2021 5:38 AM Age: 55 years old Clinical indication: Pain; Shoulder; Right; Additional info: R/O osteomyelitis TECHNIQUE: Imaging protocol: MR of the Right upper extremity without and with contrast. Exam focused on the shoulder. Contrast material: PROHANCE; Contrast volume: 15 ml; Contrast route: INTRAVENOUS (IV); COMPARISON: CR Shoulder, complete RIGHT 03/30/2021 12:18 AM FINDINGS: Limitations: Mild motion on some sequences. Bones and cartilage: There is mild to moderate acromioclavicular arthrosis. There is moderate glenohumeral chondromalacia with mild periarticular osteophyte formation. Mild subcortical degenerative cystic changes are present about the glenohumeral joint as well. There are mild productive changes along the greater tuberosity, with moderate degenerative cystic changes along it and the lesser tuberosity. There are no marrow signal changes or areas of cortical destruction to indicate osteomyelitis. Joint spaces: A very small glenohumeral joint effusion is present. Glenoid labrum: Heterogeneity of the superior glenoid labrum suggests degeneration and chronic tearing. Bursae: Edema is present without discrete fluid in the subacromial, subdeltoid bursa. There is, however, small fluid in the subcoracoid bursa. Supraspinatus tendon: Moderate supraspinatus tendinopathy with some partial-thickness bursal surface fraying. Infraspinatus tendon: Mild infraspinatus tendinopathy. Subscapularis tendon: Mild subscapularis tendinopathy. Teres minor tendon: Unremarkable. No evidence of tear. Tendon of biceps brachii: The long head of the biceps tendon demonstrates mild tendinopathy and is in normal location. Glenohumeral ligaments: Unremarkable. Muscles: Moderate enhancing edema involves the coracobrachialis muscle. More mild edema involves the pectoralis minor muscle. Soft tissues: Unremarkable. IMPRESSION: 1. Degenerative changes as described. 2. Rotator cuff tendinopathy as described, without full-thickness tear identified. 3. Very small glenohumeral joint effusion with small fluid in the subcoracoid bursa, the latter which suggest bursitis in the absence of full-thickness rotator cuff tear. Either fluid could be septic in the appropriate clinical situation. 4. Moderate enhancing edema involving the coracobrachialis muscle with more mild edema of the pectoralis minor. This could relate to strain or myositis. 5. No evidence for osteomyelitis. Electronically signed by: Chico Falrey On 03/30/2021 07:36:39 AM
[2021-03-30] MEDS ORDERED: [UNRECOGNIZED DRUG - OTHER] PO SCH (09:00)
[2021-03-30] MEDS ORDERED: METHOTREXATE 2.5 MG TAB (J8610 PER 2.5MG) PO SCH (09:00)
[2021-03-30] MEDS ORDERED: ALBU1.25 NEB (09:44)
[2021-03-30] MEDS ORDERED: ECOT81TA5 PO (09:45)
[2021-03-30] MEDS ORDERED: HOME MED LIST COMPLETE! XX SCH (09:55)
[2021-03-30] MEDS ORDERED: ALPRAZolam 0.5 MG TAB PO PRN (09:55)
--- NOTE | 2021-03-30 10:30 | REP ---
INDICATION: r/o PNA COMPARISON: None TECHNIQUE: Axial noncontrast images from the thoracic inlet to the upper abdomen with coronal and sagittal reformations. This CT examination was performed using the following dose reduction techniques: Automated exposure control, adjustment of mA and/or kv according to the patient's size, and use of iterative reconstruction technique. FINDINGS: Very minimal linear fibro atelectatic changes are noted involving the lingula and left lower lobe consistent with the linear changes on x-ray. No acute consolidation. No effusion or pneumothorax. Tracheobronchial tree is patent. No significant adenopathy. Atherosclerotic changes to the thoracic aorta without aneurysm. No cardiomegaly or pericardial effusion. Prior right mastectomy. Limited upper abdomen suggests fatty infiltration to the liver and normal bilateral adrenal glands with evidence for prior cholecystectomy. IMPRESSION: Mild subtle linear fibroatelectatic changes in the left lung corresponding to findings on x-ray. No acute consolidation or effusion. <Electronically signed by Chris Senior > 03/30/21 1024
[2021-03-30] MEDS: VENLAFAXINE **XR** 75MG CAPSULE PO SCH (10:40)
[2021-03-30] MEDS: ASPIRIN 81MG ENTERIC TABLET PO SCH (10:40)
[2021-03-30] MEDS: LevoFLOXacin IV 750 MG in IV 1 EA IV SCH (10:40)
[2021-03-30] MEDS: PANTOPRAZOLE 40MG TAB (PROTONIX) PO SCH (10:40)
[2021-03-30] MEDS: FOLIC ACID 1 MG TAB PO SCH (10:40)
[2021-03-30] MEDS: MULTIVITAMINS/MINERALS THERAP 1 TAB PO SCH (10:40)
[2021-03-30] MEDS: TORSEMIDE 10 MG TABLET PO SCH (10:41)
[2021-03-30] MEDS: CYANOCOBALAMIN 500 MCG TAB PO SCH (10:41)
[2021-03-30] MEDS: MAGNESIUM OXIDE 400MG TAB (MAG-OX) PO SCH ×2 (10:42→21:08)
[2021-03-30] MEDS ORDERED: TACR1CAP3 PO (10:53)
[2021-03-30] MEDS ORDERED: SIRO1TAB3 PO (10:54)
[2021-03-30 11:00] LABS: HEMATOCRIT 39.6 % (36.0-47.0); HEMOGLOBIN 13.2 g/dl (12.0-15.5); MEAN CORPUSCULAR HEMOGLOBIN 34.7 pg (27.0-33.0); MEAN CORPUSCULAR HGB CONC 33.3 g/dl (32.0-36.5); MEAN CORPUSCULAR VOLUME 104.2 fl (80.0-96.0); PLATELET COUNT, AUTOMATED 141 10^3/uL (150-450); WHITE BLOOD COUNT 2.2 10^3/uL (4.0-10.0)
[2021-03-30 11:10] LABS: INR 0.94
[2021-03-30 11:11] LABS: PARTIAL THROMBOPLASTIN TIME 28.7 SECONDS (25.9-37.0)
[2021-03-30 11:30] LABS: ALT/SGPT 23 U/L (12-78); BILIRUBIN,TOTAL 0.4 MG/DL (0.2-1.0); BLOOD UREA NITROGEN 10 MG/DL (7-18); CALCIUM LEVEL 8.4 MG/DL (8.5-10.1); CARBON DIOXIDE LEVEL 27 MEQ/L (21-32); CHLORIDE LEVEL 109 MEQ/L (98-107); CREATININE FOR GFR 0.71 MG/DL (0.55-1.30); GLOMERULAR FILTRATION RATE > 60.0 (>51); GLUCOSE, FASTING 86 MG/DL (70-100); POTASSIUM SERUM 3.6 MEQ/L (3.5-5.1); SODIUM LEVEL 142 MEQ/L (136-145)
[2021-03-30] MEDS: METOPROLOL SUCC *XL* 12.5MG PER 1/2 TAB (TopROL *XL*) PO SCH (11:34)
--- NOTE | 2021-03-30 12:08 | HPEPDOC ---
[facility] Medical History & Physical Date of Admission Mar 30, 2021 Date of Service: Mar 30, 2021 Attending Physician: Robina London MD History and Physical CHIEF COMPLAINT: Increased right arm pain HISTORY OF PRESENT ILLNESS: Patient is a 55-year-old female with past medical history of breast cancer status post radiation and chemotherapy, heart transplant 2018, history of atrial fibrillation, rheumatoid arthritis, COPD who presented to [facility] emergency room with a chief complaint of increased right arm pain beginning 03/29/2020 1 in the AM. The patient states she has had no recent trauma to the right upper extremity yet yesterday morning she noticed increasing right posterior shoulder pain along with worsening right upper extremity pain throughout yesterday and today. The patient states that she has had similar pain in her arm in the past when she has had cellulitis. She describes the pain as sharp, nonradiating localized to the posterior shoulder and the right upper extremity but not extending to the hand. She has a history of lymphedema in the right upper extremity as well and always has swelling, no increased swelling from her baseline she states if she does not wear a compression sleeve. She also states to have had 3-4 days of increased shortness of breath from baseline, productive cough of clear sputum, weakness. She also states to have only recently began with fevers at home as high as 102. She also describes some mild chest heaviness in the central part of her chest, nonradiating and associated with increased shortness of breath. She denies any sick contacts, recent illnesses, nausea, vomiting diarrhea, abdominal pain. Due to right upper extremity pain an d fevers the patient came in to be further evaluated. In the emergency room, vital signs showed fever 101.7, heart rate 96, respiratory rate 20, 105/59, 96% on room air. CXR showed atelectasis, no PNA. She had no elevated WBC; however, patient is on immunosuppressants with her history of cardiac transplant. Right shoulder MRI showed 1. Degenerative changes, 2. Rotator cuff tendinopathy as described, without full-thickness tear identified. 3. Very small glenohumeral joint effusion with small fluid in the subcoracoid bursa, the latter which suggest bursitis in the absence of full- thickness rotator cuff tear. Either fluid could be septic in the appropriate clinical situation. 4. Moderate enhancing edema involving the coracobrachialis muscle with more mild edema of the pectoralis minor. This could relate to strain or myositis. Orthopedic surgery was called and Dr. Elaine will see on the h ospital floor. On exam the patient had increased wheezing, coughing suspicious for respiratory illness. Respiratory panel was negative. CT of the chest was ordered to get a better look. The patient was ultimately admitted for right shoulder pain, fever in immunocompromise patient, rule out right shoulder infection versus secondary to respiratory cause. REVIEW OF SYSTEMS: Neg except for what is mentioned above PAST MEDICAL HISTORY: breast cancer status post radiation and chemotherapy, heart transplant 2019, history of atrial fibrillation, rheumatoid arthritis, COPD, GERD , HTN, hypomag nesemia, HLD, anxiety PAST SURGICAL HISTORY: Heart transplant 2019 LVAD placement Partial hysterectomy AICD placement and later removal Gastric sleeve FAMILY HISTORY: Sister/carcinoid of the lung. Alive. Motherbladder cancer. Alive. SOCIAL HISTORY: Prior smoker 1 pack/day for over 30 years. Quit 2013. Drinks alcohol socially occasionally, denies drug use. Follows with transplant team in [facility] (activities coordinator Jamir Whipple), cardiologistDr. Hardwick,, hematology[facility]oncolog [facility]. PCP-Dr. Payne ALLERGIES: Please see below. HOME MEDICATIONS: Please see below. PHYSICAL EXAMINATION: VS: 101.7, heart rate 96, respiratory rate 20, 105/59, 96% on room air CONSTITUTIONAL: No acute distress, resting comfortably, AAO x 3 EYES: PERRLA, EOM intact HENT, MOUTH: Normocephalic, atraumatic, moist mucous membranes NECK: SUPPLE, no JVD, no lymphadenopathy, no carotid bruit CV: Regular rate and rhythm, S1S2 normal, no murmurs/rubs/gallops RESPIRATORY: Wheezing bilaterally mild rhonchi. no rales/wheezes GI: BS positive in 4 quadrants, soft, nontender, nondistended, no rebound or guarding, no organomegaly : Deferred MUSCULOSKELETAL: Right upper extremity swellingpatient states this is baseline when she does not have her arm sleeve on., Nonpitting, no erythema. Decreased ROM of right upper extremity. Point tenderness behind the right scapula, below. No cyanosis, clubbing, swelling, joint deformity, extremity edema INTEGUMENTARY: Intact, no rashes, no lesions, no erythema NEUROLOGIC: Cranial Nerves II-XII are intact, no focal deficits PSYCHIATRIC: Mood and affect are normal LABORATORY DATA: Please see below IMAGING: CT chest: Mild subtle linear fibroatelectatic changes in the left lung corresponding to findings on x-ray. No acute consolidation or effusion. CT right shoulder: 1. Degenerative changes as described. 2. Rotator cuff tendinopathy as described, without full-thickness tear identified. 3. Very small glenohumeral joint effusion with small fluid in the subcoracoid bursa, the latter which suggest bursitis in the absence of full-thickness rotator cuff tear. Either fluid could be septic in the appropriate clinical situation. 4. Moderate enhancing edema involving the coracobrachialis muscle with more mild edema of the pectoralis minor. This could relate to strain or myositis. 5. No evidence for osteomyelitis. MICRO: Blood cultures x 2 sets-pending UA ordered Sputum culture ordered ASSESSMENT: 55-year-old female with past medical history of breast cancer status post radiation and chemotherapy, heart transplant 2019, history of atrial fibrillation, rheumatoid arthritis, COPD admitted for right shoulder pain, fever in immunocompromise patient, rule out right shoulder infection vs secondary to respiratory cause. PLAN: Fever in immunocompromised patient, rule out secondary to right shoulder infection vs respiratory cause -T-max one 1.7 here, fevers of 102 at home, mild tachycardia. WBC within normal limits. -CT of the chest and chest x-ray negative for pneumonia, procalcitonin is p ending -Patient remains wheezy, coughing despite negative respiratory panel -Follow-up mycoplasma, Legionella, strep pneumo studies to rule out atypical pneumonia -Follow-up blood cultures, UA -Right shoulder infection work-up, see below -On levofloxacin IV only now, Tylenol as needed -If persists, discuss with her transplant team about stopping immunosuppressive drugs Acute right upper extremity/right shoulder pain, rule out secondary to rotator cuff tendinopathy vs. bursitis in the absence of full-thickness rotator cuff tear vs. septic joint vs. muscle strain/myositis -Denies recent trauma to the right upper extremity or shoulder, denies pushing, pulling or lifting anything heavy -Could not remember if she slept on her shoulder/right arm the wrong way -No signs or symptoms of cellulitis of that extremity or shoulder. No erythema, swelling on examination -CT shoulder above -CRP elevated, Sed rate wnl -Orthopedic surgery, Dr. Ceja consulted to see Shortness of breath likely secondary to COPD exacerbation -Saturating well on room air -CT of the chest, chest x-ray negative for pneumonia -Wheezing, rhonchi bilaterally -Resp panel negative -Continue with albuterol, methylprednisolone, levofloxacin Chronic lymphedema right upper extremity secondary to right breast mastectomy -Per patient swelling of the right upper extremity is not worsened -Continue with right upper extremity sleeve Breast cancer status post radiation and chemotherapy -Continue with home meds -Follow-up with heme-onc, [facility] Hx of heart transplant 2019 -Follows with cardiology, transplant team through [facility] History of atrial fibrillation -Resolved after heart transplant -Currently sinus rhythm RA -C/w home meds GERD -PPI HTN -C/w home meds Hypomagnesemia -C/w home meds HLD -Home meds Anxiety -Home meds DVT px -Enoxaparin DISPOSITION: Admitted as observation status. Plan is d/c home when medically improved. Vital Signs Vital Signs Date Time Temp Pulse Resp B/P (MAP) Pulse Ox O2 Delivery O2 Flow Rate FiO2 03/30/21 10:41 89 110/57 03/30/21 04:40 99.7 20 03/30/21 02:45 96 03/29/21 23:13 Room Air Laboratory Data Labs 24H Laboratory Tests 2 03/30/21 01:12: Immature Granulocyte % (Auto) 1.0, Neutrophils (%) (Auto) 82.1H, Lymphocytes (%) (Auto) 6.7L, Monocytes (%) (Auto) 9.9H, Eosinophils (%) (Auto) 0.3, Basophils (%) (Auto) 0.0, Neutrophils # (Auto) 2.6, Lymphocytes # (Auto) 0.2L, Monocytes # (Auto) 0.3, Eosinophils # (Auto) 0.0, Basophils # (Auto) 0.0, Nucleated Red Blood Cells % (auto) 0.0, Erythrocyte Sedimentation Rate 28, Anion Gap 8, Glomerular Filtration Rate > 60.0, Lactic Acid Level 0.7, Calcium Level 8.6, C- Reactive Protein, Quantitative 2.25H 03/30/21 10:45: Nucleated Red Blood Cells % (auto) 0.0, Prothrombin Time 13.0, Prothromb Time International Ratio 0.94, Activated Partial Thromboplast Time 28.7 CBC/BMP Laboratory Tests 03/30/21 01:12 03/30/21 10:45 Microbiology Microbiology 03/30/21 Blood Culture, Received Pending 03/30/21 Respiratory Virus Panel (PCR) (JORDYN) - Final, Complete 03/30/21 Blood Culture, Received Pending Home Medications Scheduled Amlodipine Besylate (Norvasc) 10 Mg Tab, 10 MG PO DAILY Aspirin (Ecotrin) 81 Mg Tablet.dr, 81 MG PO DAILY Budesonide/Formoterol (Symbicort 160-4.5 Mcg Inhaler) 60 Puff/Inhaler Aers, 2 PUFF INH BID Calcium Carbonate/Vitamin D3 (Calcium 1,000 + D3 Caplet) 1 Each Tablet, 1 TAB PO BID Cyanocobalamin (Vitamin B-12) (Vitamin B-12) 1,000 Mcg Tablet, 1,000 MCG PO DAILY Exemestane (Exemestane) 25 Mg Tablet, 25 MG PO DAILY Folic Acid (Folic Acid) 1 Mg Tablet, 1 MG PO DAILY Losartan Potassium (Losartan Potassium) 50 Mg Tablet, 50 MG PO QHS Magnesium Oxide (Magnesium Oxide) 400 Mg Tablet, 400 MG PO BID Methotrexate Sodium (Methotrexate) 2.5 Mg Tablet, 10 MG PO 1XWK DOES ON THURSDAYS Metoprolol Succinate (Metoprolol Succinate) 25 Mg Tab.er.24h, 12.5 MG PO DAILY Multivitamins (Thera M Plus Tablet) 1 Each Tablet, 1 TAB PO DAILY Pantoprazole Sodium (Pantoprazole Sodium) 40 Mg Tablet.dr, 40 MG PO DAILY Pravastatin Sodium (Pravastatin Sodium) 40 Mg Tab, 40 MG PO QHS Prednisone (Prednisone) 5 Mg Tablet, 5 MG PO DAILY Sirolimus (Sirolimus) 1 Mg Tablet, 1 TAB PO DAILY Tacrolimus (Tacrolimus) 1 Mg Capsule, 2 CAP PO BID Torsemide (Torsemide) 20 Mg Tablet, 10 MG PO DAILY Trazodone HCl (Trazodone HCl) 100 Mg Tablet, 200 MG PO QHS Venlafaxine HCl (Venlafaxine HCl ER) 75 Mg Cap.er.24h, 75 MG PO DAILY Scheduled PRN Acetaminophen (Acetaminophen) 325 Mg Tablet, 650 MG PO Q6HP PRN for PAIN / FEVER Albuterol Sulfate (Proair Respiclick) 90 Mcg Aer.pow.ba, 2 PUFF INH Q4-6HP PRN for shortness of breath Albuterol Sulfate (Albuterol Sulfate) 1.25 Mg/3 Ml Vial.neb, 1 VIAL NEB Q4-6HP PRN for SHORTNESS OF BREATH Alprazolam (Alprazolam) 0.5 Mg Tablet, 0.5 MG PO DAILY PRN for ANXIETY Allergies Coded Allergies: Sulfa (Sulfonamide Antibiotics) (Verified Allergy, Intermediate, RASH AND HIVES, 07/27/20) vancomycin (Verified Adverse Reaction, Intermediate, rash on chest, head felt hot, 07/27/20) morphine (Verified Adverse Reaction, Mild, lethargy, 07/27/20) NSAIDS (Non-Steroidal Anti-Inflamma (Verified Adverse Reaction, Unknown, states cant have due to heart transplant, 11/12/20) pseudoephedrine (Unverified Adverse Reaction, Unknown, CONTRAINDICATION, 07/27/20) CONTRAINDICATION A-FIB/CHADSVASC A-FIB History Current/History of A-Fib/PAF?: Yes Current PO Anticoag Therapy: No Age/Risk Factor Scoring CHADSVASC: CHADSVASC Response (Comments) Value Age Risk Factor Age < 65 years old 0 Gender Risk Factor Female 1 Hx of CHF No 0 Hx of HTN Yes 1 Hx of Stroke/TIA/or VTE No 0 Hx of Diabetes No 0 Hx of Vascular Disease No 0 Total 2 Treatment Treatment ordered: Other Other anticoagulant ordered: Robina Laboy MD Mar 30, 2021 12:07
[2021-03-30] MEDS: methylPREDNISolone 125MG 2ML VIAL IV SCH (13:44)
[2021-03-30] MEDS: SIROLIMUS 1 MG TAB (RAPAMUNE) PO SCH (13:44)
[2021-03-30] MEDS: NS 1,000 ML IV SCH (13:45)
[2021-03-30] MEDS: ACETAMINOPHEN TAB 650MG DOSE (2X325MG) PO PRN (15:59)
[2021-03-30 16:00] VITALS: BP 108/71
[2021-03-30] MEDS: SYMBICORT 160/4.5MCG INHALER 6GM INH SCH (19:32)
[2021-03-30] MEDS: ALBUTEROL SULFATE 2.5 MG/0.5 ML INH NEB SOLN NEB PRN (19:38)
--- NOTE | 2021-03-30 20:27 | ECGEPIP ---
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
[2021-03-30] MEDS ORDERED: PRAVASTATIN 20 MG TAB PO SCH (21:00)
[2021-03-30] MEDS ORDERED: ENTER DRUG NAME HERE (PATIENT'S OWN MED) PO SCH (21:00)
[2021-03-30] MEDS ORDERED: TACROLIMUS 1 MG CAP (J7507) PO SCH (21:00)
[2021-03-30] MEDS ORDERED: traZODone 100 MG TAB PO SCH (21:00)
[2021-03-30] MEDS ORDERED: LOSARTAN 50MG TABLET PO SCH (21:00)
[2021-03-30 22:00] VITALS: BP 113/73
[2021-03-31] MEDS: ACETAMINOPHEN TAB 650MG DOSE (2X325MG) PO PRN (05:26)
[2021-03-31] MEDS: NS 1,000 ML IV SCH (05:26)
[2021-03-31 06:00] VITALS: BP 116/75
[2021-03-31] MEDS: SYMBICORT 160/4.5MCG INHALER 6GM INH SCH (07:23)
[2021-03-31 09:00] VITALS: BP 102/68
[2021-03-31] MEDS ORDERED: predniSONE 20 MG TAB PO ONE (09:00)
[2021-03-31] MEDS: METOPROLOL SUCC *XL* 12.5MG PER 1/2 TAB (TopROL *XL*) PO SCH (09:00)
[2021-03-31] MEDS ORDERED: ENTER DRUG NAME HERE (PATIENT'S OWN MED) PO SCH (09:00)
[2021-03-31] MEDS: TORSEMIDE 10 MG TABLET PO SCH (09:00)
[2021-03-31] MEDS ORDERED: TACROLIMUS 1 MG CAP (J7507) PO SCH (09:00)
[2021-03-31 09:29] LABS: HEMATOCRIT 40.7 % (36.0-47.0); HEMOGLOBIN 13.7 g/dl (12.0-15.5); MEAN CORPUSCULAR HEMOGLOBIN 34.7 pg (27.0-33.0); MEAN CORPUSCULAR HGB CONC 33.7 g/dl (32.0-36.5); PLATELET COUNT, AUTOMATED 167 10^3/uL (150-450); RED BLOOD COUNT 3.95 10^6/uL (4.00-5.40); WHITE BLOOD COUNT 3.5 10^3/uL (4.0-10.0)
[2021-03-31] MEDS: methylPREDNISolone 125MG 2ML VIAL IV SCH (09:45)
[2021-03-31] MEDS: FOLIC ACID 1 MG TAB PO SCH (09:46)
[2021-03-31] MEDS: ASPIRIN 81MG ENTERIC TABLET PO SCH (09:46)
[2021-03-31] MEDS: CYANOCOBALAMIN 500 MCG TAB PO SCH (09:46)
[2021-03-31] MEDS: VENLAFAXINE **XR** 75MG CAPSULE PO SCH (09:46)
[2021-03-31] MEDS: MULTIVITAMINS/MINERALS THERAP 1 TAB PO SCH (09:46)
[2021-03-31] MEDS: PANTOPRAZOLE 40MG TAB (PROTONIX) PO SCH (09:46)
[2021-03-31] MEDS: SIROLIMUS 1 MG TAB (RAPAMUNE) PO SCH (09:46)
[2021-03-31] MEDS: MAGNESIUM OXIDE 400MG TAB (MAG-OX) PO SCH (09:47)
[2021-03-31 09:55] LABS: ALT/SGPT 23 U/L (12-78); BILIRUBIN,TOTAL 0.3 MG/DL (0.2-1.0); BLOOD UREA NITROGEN 11 MG/DL (7-18); CALCIUM LEVEL 8.7 MG/DL (8.5-10.1); CARBON DIOXIDE LEVEL 26 MEQ/L (21-32); CHLORIDE LEVEL 112 MEQ/L (98-107); CREATININE FOR GFR 0.78 MG/DL (0.55-1.30); GLOMERULAR FILTRATION RATE > 60.0 (>51); GLUCOSE, FASTING 122 MG/DL (70-100); POTASSIUM SERUM 3.8 MEQ/L (3.5-5.1); SODIUM LEVEL 145 MEQ/L (136-145); TOTAL PROTEIN 6.2 GM/DL (6.4-8.2)
[2021-03-31] MEDS: LevoFLOXacin IV 750 MG in IV 1 EA IV SCH (09:58)
[2021-03-31] MEDS ORDERED: LIDOCAINE 1% MDV 20ML VIAL As Ordered ONE (10:10)
[2021-03-31] MEDS ORDERED: ISOVUE-300 61% 50ML VIAL As Ordered ONE (10:10)
--- NOTE | 2021-03-31 10:11 | ER ---
ER CONSULTATION DATE: 03/30/2021 CHIEF COMPLAINT: Right shoulder pain. HISTORY OF PRESENT ILLNESS: I was called by Dr. Hassan the emergency department physician, this morning, 8:14 a.m. nn 03/30/2021. The patient has had increased shoulder pain over the last two days. She had a fever. It was a fever of unknown origin. She is a cardiac transplant patient. She was being admitted under the hospitalist service. I was called to assess to see if this patient had a shoulder infection. Per the emergency department provider's assessment, they were able to do a full range of motion of the shoulder, some posterior tenderness, no gross swelling and no redness. No pain with micro-motion. Plan was for the hospitalist to admit. I spoke with Dr. London in regards to assessing this patient and the urgency of the consultation. Dr. London and I spoke at 9:00 a.m. as well as 9:[address] London's assessment is that there is minimal suspicion for an acute septic joint or an acute need for me to assess the patient within the next hour, so we decided for me to see her in the evening. She was still pending workup, with high on the differential being respiratory infection. Per the patient, she has had a 1-2 day history of shoulder pain, an insidious onset, no injury. Has never had anything like this before. Located posteriorly, staying there, associated with a fever. PAST MEDICAL HISTORY: Per the hospitalist's note, past medical history includes: 1. Breast cancer status post radiation and chemotherapy. 2. Heart transplant 2019. 3. History of atrial fibrillation. 4. Rheumatoid arthritis. 5. Chronic obstructive pulmonary disease (COPD). 6. Gastroesophageal reflux disease (GERD). 7. Hypertension. 8. Hypomagnesemia. 9. Hyperlipidemia (HLD). 10. Anxiety. MEDICATIONS: Include: - amlodipine - aspirin - Symbicort - calcium - vitamin B12 - exemestane - folic acid - losartan - magnesium - methotrexate - metoprolol - multivitamins - pantoprazole - pravastatin - prednisone - sirolimus - tacrolimus - torsemide - trazodone - venlafaxine ALLERGIES: SULFA, VANCOMYCIN, MORPHINE, NONSTEROIDAL ANTIINFLAMMATORIES (NSAIDS), PSEUDOPHEDRINE. SURGICAL HISTORY: 1. Heart transplant. 2. Left ventricular assist device (LVAD). 3. Partial hysterectomy. 4. Automatic implantable cardioverter-defibrillator (AICD) placement. 5. Later removal of gastric sleeve. SOCIAL HISTORY: Prior smoker, one pack a day for 30 years, quit 2013. PHYSICAL EXAMINATION: GENERAL: This patient is ambulatory. She is up and moving around. She is alert and oriented times three. VITAL SIGNS: Temperature at this point 99.3, pulse rate 103, blood pressure 108/71, 93% on room air. EXAMINATION OF THE BILATERAL UPPER EXTREMITIES: Reveals some diffuse edema of the right upper extremity. There is very mild warmth posterior aspect of the right shoulder. There is minimal to no redness there. No pain with micro-motion. Active and passive forward in relation to the shoulder 0-140 degrees. Pain only at the range of motion internal and external rotation 0-40 degrees. Normal sensation and motor function. Axillary nerve as well as medial and ulnar nerves as well as anterior interosseous nerve (AIN)/proximal interosseous nerve (PIN). Hand warm and well perfused. Strong radial pulse. No pain with range of motion testing of the elbow or wrist. . LABORATORY EXAMINATION: Reveals white blood cell count 3.1 trending to 2.2. Erythrocyte sedimentation rate (ESR) 28. C-reactive protein (CRP) is 2.25. Neutrophil percentage 82.1. Serology pending. Urine negative for leukocyte esterase. Blood cultures pending. Respiratory panel is negative for COVID. IMAGING DATA: Shoulder x-ray reveals increased widening of subacromial space indicating significant joint effusion, could be infected. No obvious bone erosion. Shoulder MRI per the radiologist's assessment, and I agree, degenerative changes, rotator cuff tendinopathy without full thickness tear, very small glenohumeral joint effusion with small fluid in the subcortical bursa. Bursitis in the absence of full thickness rotator cuff tear. Either fluid could be septic in the appropriate clinical situation. Moderate enhancing edema involving the cortical brachialis muscle with more mild edema in the pectoralis minor. This could relate to strain or myositis. No evidence for osteomyelitis. ASSESSMENT AND PLAN: This is a 55-year-old female with right shoulder pain, fever of unknown origin. Had a discussion with Dr. London this morning in regards to this patient. The plan is to establish to assess for her fever of unknown origin from multiple other sites with the last step being if these were negative to go ahead and aspirate the shoulder for gram stains and sensitivities. At this point, I have a low suspicion for septic arthritis, given the clinical exam; however, the patient has been placed on intravenous (IV) antibiotics and may have a low grade cellulitis of the upper extremity. However, a low suspicion of acute septic joint. I will follow patient along while in hospital. INES
--- NOTE | 2021-03-31 11:44 | IPN ---
PROGRESS NOTE DATE: 03/31/2021 CHIEF COMPLAINT: Right shoulder pain. HISTORY OF PRESENT ILLNESS: This 55-year-old female was admitted yesterday with shoulder pain and fever of unknown origin. ASSESSMENT AND PLAN: I discussed with Dr. London the hospitalist this morning at 8:20 a.m. The workup so far including blood cultures, CT of the chest and other tests have been so far negative. Therefore, it was decided between myself and her that the best next course of action in terms of working out this problem despite normal shoulder exam would be to do a fluoroscopy-guided right shoulder intraarticular aspiration and send for cultures. Dr. London will order that and let me know if the gram stain is positive. INES
[2021-03-31 14:00] VITALS: BP 122/78
--- NOTE | 2021-03-31 14:08 | IPNPDOC ---
Date Seen The patient was seen on 03/31/21. Progress Note SUBJECTIVE: Right shoulder aspiration yielded nothing, no cultures sent. S/s of sinusitis more pronounced today. ID consulted. Afebrile since admission. Denies nausea, vomiting, fevers, chills, increased shortness of breath since admission. OBJECTIVE: PHYSICAL EXAMINATION: VS: Please see below, room air CONSTITUTIONAL: No acute distress, resting comfortably, AAO x 3 EYES: PERRLA, EOM intact HENT, MOUTH: Normocephalic, atraumatic, moist mucous membranes NECK: SUPPLE, no JVD, no lymphadenopathy, no carotid bruit CV: Regular rate and rhythm, S1S2 normal, no murmurs/rubs/gallops RESPIRATORY: CTAB. no rales/wheezes GI: BS positive in 4 quadrants, soft, nontender, nondistended, no rebound or guarding, no organomegaly : Deferred MUSCULOSKELETAL: Right upper extremity swellingpatient states this is baseline when she does not have her arm sleeve on, Nonpitting, no erythema. normal ROM of right upper extremity. Point tenderness behind the right scapula, improved. No cyanosis, clubbing, swelling, joint deformity, extremity edema INTEGUMENTARY: Intact, no rashes, no lesions, no erythema NEUROLOGIC: Cranial Nerves II-XII are intact, no focal deficits PSYCHIATRIC: Mood and affect are normal LABORATORY DATA: Please see below IMAGING: CT chest: Mild subtle linear fibroatelectatic changes in the left lung corresponding to findings on x-ray. No acute consolidation or effusion. CT right shoulder: 1. Degenerative changes as described. 2. Rotator cuff tendinopathy as described, without full-thickness tear identified. 3. Very small glenohumeral joint effusion with small fluid in the subcoracoid bursa, the latter which suggest bursitis in the absence of full-thickness rotator cuff tear. Either fluid could be septic in the appropriate clinical situation. 4. Moderate enhancing edema involving the coracobrachialis muscle with more mild edema of the pectoralis minor. This could relate to strain or myositis. 5. No evidence for osteomyelitis. MICRO: Blood cultures x 2 sets-NG UA neg Sputum culture: contaminated ASSESSMENT: 55-year-old female with past medical history of breast cancer status post radiation and chemotherapy, heart transplant 2019, history of atrial fibrillation, rheumatoid arthritis, COPD admitted for right shoulder pain, fever in immunocompromise patient, rule out right shoulder infection vs secondary to respiratory cause. PLAN: Fever in immunocompromised patient, rule out secondary to right shoulder infection vs sinusitis? -T-max 101.7 yesterday in ER, none since admission. Resolved SIRS -CT of the chest and chest x-ray negative for pneumonia -Procalcitonin low at 0.05 with mycoplasma, Legionella, strep pneumo studies to rule out atypical pneumonia -Resolved wheezing, negative respiratory panel -Blood cultures NG to date -UA neg -Right shoulder infection work-up, see below -Levofloxacin IV only now, Tylenol as needed -S/s of sinusitis. ID consulted, f/u recommendations Acute right upper extremity/right shoulder pain, rule out secondary to rotator cuff tendinopathy vs. bursitis in the absence of full-thickness rotator cuff tear vs. septic joint vs. muscle strain/myositis -Afebrile overnight -S/p aspiration of right shoulder, yielded nothing with no fluid obtained to send GS and cultures -No erythema, incr swelling from baseline, no ROM deficits -Denies recent trauma to the right upper extremity or shoulder, denies pushing, pulling or lifting anything heavy -Could not remember if she slept on her shoulder/right arm the wrong way -CT shoulder above -CRP elevated, Sed rate wnl -Orthopedic surgery, Dr. Ceja consulted, f/u note. -At this time low suspicion for septic joint, as exam did not illicit pain as it normally would with infected shoulder. F/u ID recommendations Shortness of breath likely secondary to COPD exacerbation -Saturating well on room air, no wheezing today -CT of the chest, chest x-ray negative for pneumonia -Resp panel negative -Continue with albuterol, methylprednisolone stopped and PO prednisone started 40 mg PO daily and will taper off, levofloxacin Chronic lymphedema right upper extremity secondary to right breast mastectomy -Per patient swelling of the right upper extremity is not worsened -Continue with right upper extremity sleeve Breast cancer status post radiation and chemotherapy -Continue with home meds -Follow-up with heme-onc, [facility] Hx of heart transplant 2019 -Follows with cardiology, transplant team through [facility] History of atrial fibrillation -Resolved after heart transplant -Currently sinus rhythm RA -C/w home meds GERD -PPI HTN -C/w home meds Hypomagnesemia -C/w home meds HLD -Home meds Anxiety -Home meds DVT px -Enoxaparin DISPOSITION: ID and ortho consulted. Admitted as observation status. Plan is d/c home when medically improved. VS, I&O, 24H, Fishbone Vital Signs/I&O Vital Signs Date Time Temp Pulse Resp B/P (MAP) Pulse Ox O2 Delivery O2 Flow Rate FiO2 03/31/21 09:00 96 102/68 03/31/21 06:00 97.5 16 94 Room Air I&O- Last 24 Hours up to 6 AM 03/31/21 06:00 Intake Total 1140 ml Output Total 0 ml Balance 1140 ml Laboratory Data 24H LABS Laboratory Tests 2 03/30/21 16:01: Methicillin-Resist S.aureus DNA PCR NOT DETECTED 03/30/21 16:53: Urine Color YELLOW, Urine Appearance CLEAR, Urine pH 5.0, Urine Specific Powell 1.012, Urine Protein NEGATIVE, Urine Glucose (UA) NEGATIVE, Urine Ketones NEGATIVE, Urine Blood 1+H, Urine Nitrite NEGATIVE, Urine Bilirubin NEGATIVE, Urine Urobilinogen 0.2, Urine Leukocyte Esterase NEGATIVE, Urine WBC (Auto) 0, Urine RBC (Auto) 3, Urine Hyaline Casts (Auto) 1, Urine Bacteria (Auto) NEGATIVE, Urine Squamous Epithelial Cells 2, Urine Mucus (Auto) SMALL, Urine Sperm (Auto) 03/31/21 09:03: Nucleated Red Blood Cells % (auto) 0.0, Anion Gap 7L, Glomerular Filtration Rate > 60.0, Calcium Level 8.7, Total Bilirubin 0.3, Aspartate Amino Transf (AST/SGOT) 18, Alanine Aminotransferase (ALT/SGPT) 23, Alkaline Phosphatase 68, Total Protein 6.2L, Albumin 3.0L, Albumin/Globulin Ratio 0.9L CBC/BMP Laboratory Tests 03/31/21 09:03 Microbiology Microbiology 03/30/21 Gram Stain - Final, Complete 03/30/21 Sputum Culture - Final, Complete 03/30/21 Blood Culture - Preliminary, Resulted No growth after 24 hours . All specim... 03/30/21 Respiratory Virus Panel (PCR) (JORDYN) - Final, Complete 03/30/21 Blood Culture - Preliminary, Resulted No growth after 24 hours . All specim... Robina London MD Mar 31, 2021 14:08
--- NOTE | 2021-03-31 15:21 | IPN ---
PROGRESS NOTE DATE: 03/31/2021 CHIEF COMPLAINT: Right shoulder pain and fever of unknown origin. I spoke with DR. London today at approximately 2 p.m. Apparently the attempt at right shoulder aspiration revealed a dry tap. The plan moving forward was to consult with Dr. Powell to obtain an infectious disease specialist for further workup and recommendations in terms of determining the cause of the fever of unknown origin. In addition we will make the patient nothing by mouth for now. ADDENDUM 04/04/21- on further discussion with Dr. London the patient is being discharged home with outpatient FU. INES
[2021-03-31] MEDS ORDERED: PRED20TA PO (16:39)
[2021-03-31] MEDS ORDERED: LEVO500T3 PO (16:39)
[2021-03-31] MEDS ORDERED: SYMB16INH INH (16:43)
[2021-03-31 17:07] LABS: MYCOPLASMA PNEUMONIAE IgG 106 U/mL (0-99); MYCOPLASMA PNEUMONIAE IgM <770 U/mL (0-769)
--- NOTE | 2021-03-31 17:40 | REP ---
INDICATION: aspiration R shoulder fluid, r/o joint/septic joint. COMPARISON: None TECHNIQUE: The procedure was performed by ZBIGNIEW Pike, under the direct supervision of Dr. Carrillo. The benefits and risks of the procedure were explained to the patient, and an informed consent was obtained. Directly prior to the start of the procedure, a formal time-out was completed in the procedure room. The right shoulder joint space was localized using fluoroscopic guidance. The skin was prepped and draped in a sterile fashion. Approximately 6 mL of 1% Lidocaine 10 mg/ml was used as a local anesthetic. Using fluoroscopic guidance, a #22 gauge spinal needle was inserted and advanced into the right shoulder joint space. Approximately 2 mL of Isovue 300 was injected to verify placement. After confirming successful needle placement within the right shoulder joint space an attempt was made to aspirate fluid. No fluid return was achieved. At this time the needle was removed. FINDINGS: The patient tolerated the procedure well and there were no immediate complications. IMPRESSION: 1. Attempted right shoulder joint aspiration with no fluid return. 0.1 minutes of fluoroscopy time was utilized for this procedure. Some fluoroscopic images are performed with last image hold technology. These images require no additional radiation. <Electronically signed by January Venegas > 03/31/21 [id number] <Electronically signed by Brody Carrillo > 03/31/21 [id number]
--- NOTE | 2021-03-31 17:51 | CR.PDOC ---
General Date of Consultation: Mar 31, 2021 Referring Provider: Robina London MD Attending Physician: Serena Powell MD Consultation REASON FOR CONSULTATION/CHIEF COMPLAINT: Suspected cellulitis, fevers. HISTORY OF PRESENT ILLNESS: Tom is 55-year-old female with extensive past medical history cardiac transplantation done in 2019 on chronic immunosuppression, breast cancer had chemotherapy and radiation in 2019, COPD, rheumatoid arthritis who presented to ED with right arm pain and fever. She reports to have right arm pain started on March 29 followed by she had a spiking fever of 102 F at home. Given her chronic immunosuppression and prior history of cellulitis in the same location she was concerned and was also having shortness of breath and chest heaviness so came to ED to check it out. Since presentation had one episode of 101.7 fever, no elevation of white count, her shortness of breath and chest heaviness have improved. Imaging of her right shoulder showed tear and bursitis she was also taken to the OR in order to drain the fluid but was a dry tap. She was already started on levofloxacin given her fever. ALLERGIES: Please see below. HOME MEDICATIONS: Please see below. PAST MEDICAL HISTORY: 1. Breast cancer status post radiation and chemotherapy 2. 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 3. Rheumatoid arthritis. 4. COPD. 5. GERD. 6. Hypertension 7. Dyslipidemia 8. Anxiety. 2.. PAST SURGICAL HISTORY: 1. Heart transplantation in 2019 2. LVAD placement 3. Mastectomy due to breast cancer. 4. Partial hysterectomy. 5. AICD placement and later removal 6. Gastric bypass. FAMILY HISTORY: Mother: Bladder cancer alive Siblings: Sister who had carcinoid and lung SOCIAL HISTORY: Tobacco use: Former smoker smoked 1 pack/day over 30 years, quit in 2013. ETOH: Occasionally Illicit drug use: Denies IV drug use: Denies REVIEW OF SYSTEMS: Constitutional: Denies fever, chills, night sweats, weight loss, headaches. Eyes: Denies any blurry vision or double vision. ENT: Denies any dysphagia, odynophagia, ear discharge, sore throat. Reports having pain in her left sinus region. Cardiovascular: Denies any chest pain, palpitations, orthopnea/PND. Respiratory: Denies shortness of breath, cough,pleuritic chest pain. Gastrointestinal (GI): Denies any nausea, vomiting, diarrhea, constipation, melena, hematochezia. Genitourinary: Denies dysuria, hematuria. Skin: Denies unsual rashes or ulcers. Hematology/Oncology: Denies any easy bleeding or bruising. Endocrine: Denies cold intolerance, heat intolerance, polydipsia, polyphagia, polyuria All other review of systems is negative. General: Patient is awake, alert, oriented times three, sitting in bed , no apparent distress. Eyes: Conjunctiva clear, pupils equal round and reactive to light and accommodation. Cardiovascular: S1, S2, normal rhythm, no murmur appreciated Respiratory: Chest is clear to auscultation bilaterally, No rhonchi, wheezes or rubs. Abdomen: Soft, bowel sounds positive, no bruits. Nontender on palpation. Liver edge, spleen, kidney not felt, no masses. Extremities: No clubbing or cyanosis. Patient has right extremity lymphedema following her right side breast cancer surgery and radiation and generally uses a arm sleeve and pump, however she did not bring her sleeve and pump to the hospital, no tenderness. Spine: No kyphosis, no paraspinal tenderness, no costovertebral tenderness. Central nervous system (LEAD [employer]GOMAN): Awake, alert and fully oriented. Skin: No rashes, lesions, ulcerations, subcutaneous nodules or induration. ASSESSMENT/PLAN: 55-year-old female with PMH of breast cancer s/p radiation chemotherapy, heart transplant on chronic immunosuppression with tacrolimus and sirolimus, RA, COPD, HTN who presented to ED with right arm pain with concern for cellulitis given that she had an episode of cellulitis in that arm and fevers. -Possible early cellulitis, given that patient was started on levofloxacin in time the cellulitis might have been under control. Consider continuing her levofloxacin for 1 week in total given her immunocompromise state. Patient can be discharged home on oral Levaquin for a total of 1 week. -She does report to have some mild tenderness in her left sinus, however she denies having any runny nose, postnasal drip. which will also be taken care of by Levaquin. -Given the history of C. difficile in the past patient she was educated about taking probiotics which will help her to prevent any reinfection with C. difficile. Vital Signs/I&O Vital Signs Date Time Temp Pulse Resp B/P (MAP) Pulse Ox O2 Delivery O2 Flow Rate FiO2 03/31/21 14:00 97.6 89 18 122/78 (93) 93 Room Air I&O- Last 24 Hours up to 6 AM 03/31/21 06:00 Intake Total 1140 ml Output Total 0 ml Balance 1140 ml Laboratory Data Labs 24H Laboratory Tests 2 03/31/21 09:03: Nucleated Red Blood Cells % (auto) 0.0, Anion Gap 7L, Glomerular Filtration Rate > 60.0, Calcium Level 8.7, Total Bilirubin 0.3, Aspartate Amino Transf (AST/SGOT) 18, Alanine Aminotransferase (ALT/SGPT) 23, Alkaline Phosphatase 68, Total Protein 6.2L, Albumin 3.0L, Albumin/Globulin Ratio 0.9L CBC/BMP Laboratory Tests 03/31/21 09:03 Microbiology Microbiology 03/30/21 Gram Stain - Final, Complete 03/30/21 Sputum Culture - Final, Complete 03/30/21 Blood Culture - Preliminary, Resulted No growth after 24 hours . All specim... 03/30/21 Respiratory Virus Panel (PCR) (JORDYN) - Final, Complete 03/30/21 Blood Culture - Preliminary, Resulted No growth after 24 hours . All specim... Allergies Coded Allergies: Sulfa (Sulfonamide Antibiotics) (Verified Allergy, Intermediate, RASH AND HIVES, 07/27/20) vancomycin (Verified Adverse Reaction, Intermediate, rash on chest, head felt hot, 07/27/20) morphine (Verified Adverse Reaction, Mild, lethargy, 07/27/20) NSAIDS (Non-Steroidal Anti-Inflamma (Verified Adverse Reaction, Unknown, states cant have due to heart transplant, 11/12/20) pseudoephedrine (Unverified Adverse Reaction, Unknown, CONTRAINDICATION, 07/27/20) CONTRAINDICATION Home Medications Scheduled Amlodipine Besylate (Norvasc) 10 Mg Tab, 10 MG PO DAILY, (Reported) Aspirin (Ecotrin) 81 Mg Tablet.dr, 81 MG PO DAILY, (Reported) Budesonide/Formoterol (Symbicort 160-4.5 Mcg Inhaler) 60 Puff/Inhaler Aers, 2 PUFF INH BID for 30 Days, #1 Calcium Carbonate/Vitamin D3 (Calcium 1,000 + D3 Caplet) 1 Each Tablet, 1 TAB PO BID, (Reported) Cyanocobalamin (Vitamin B-12) (Vitamin B-12) 1,000 Mcg Tablet, 1,000 MCG PO DAILY, (Reported) Exemestane (Exemestane) 25 Mg Tablet, 25 MG PO DAILY, (Reported) Folic Acid (Folic Acid) 1 Mg Tablet, 1 MG PO DAILY, (Reported) Levofloxacin (Levofloxacin) 500 Mg Tablet, 500 MG PO DAILY for 6 Days, #6 Losartan Potassium (Losartan Potassium) 50 Mg Tablet, 50 MG PO QHS, (Reported) Magnesium Oxide (Magnesium Oxide) 400 Mg Tablet, 400 MG PO BID, (Reported) Methotrexate Sodium (Methotrexate) 2.5 Mg Tablet, 10 MG PO 1XWK, (Reported) DOES ON THURSDAYS Metoprolol Succinate (Metoprolol Succinate) 25 Mg Tab.er.24h, 12.5 MG PO DAILY, (Reported) Multivitamins (Thera M Plus Tablet) 1 Each Tablet, 1 TAB PO DAILY, (Reported) Pantoprazole Sodium (Pantoprazole Sodium) 40 Mg Tablet.dr, 40 MG PO DAILY, (Reported) Pravastatin Sodium (Pravastatin Sodium) 40 Mg Tab, 40 MG PO QHS, (Reported) Prednisone (Prednisone) 20 Mg Tablet, 40 MG PO DAILY for 6 Days, #6 prednisone taper: 40 mg PO x 1 day, 20 mg PO x 3 days, 10 mg PO x 2 days. After that, can resume home prednisone 5 mg daily. Sirolimus (Sirolimus) 1 Mg Tablet, 1 TAB PO DAILY for 30 Days, #30 (Reported) Tacrolimus (Tacrolimus) 1 Mg Capsule, 2 CAP PO BID for 30 Days, #120 (Reported) Torsemide (Torsemide) 20 Mg Tablet, 10 MG PO DAILY, (Reported) Trazodone HCl (Trazodone HCl) 100 Mg Tablet, 200 MG PO QHS, (Reported) Venlafaxine HCl (Venlafaxine HCl ER) 75 Mg Cap.er.24h, 75 MG PO DAILY, (Reported) Scheduled PRN Acetaminophen (Acetaminophen) 325 Mg Tablet, 650 MG PO Q6HP PRN for PAIN / FEVER for 30 Days, #30 Albuterol Sulfate (Proair Respiclick) 90 Mcg Aer.pow.ba, 2 PUFF INH Q4-6HP PRN for shortness of breath, #1 Albuterol Sulfate (Albuterol Sulfate) 1.25 Mg/3 Ml Vial.neb, 1 VIAL NEB Q4-6HP PRN for SHORTNESS OF BREATH, (Reported) Alprazolam (Alprazolam) 0.5 Mg Tablet, 0.5 MG PO DAILY PRN for ANXIETY, (Reported) GME ATTESTATION GME ATTESTATION My faculty preceptor for this patient encounter was physically present during the encounter and was fully available. All aspects of the patient interview, examination, medical decision making process, and medical care plan development were reviewed and approved by the faculty preceptor. The faculty preceptor is aware and concurs with the plan as stated in the body of this note and will attest to such by his/her cosignature. Bijan Quinonez MD Mar 31, 2021 17:51
[2021-03-31] MEDS: ALBUTEROL SULFATE 2.5 MG/0.5 ML INH NEB SOLN NEB PRN (17:55)
--- NOTE | 2021-03-31 19:03 | DS.PDOC ---
Discharge Summary General Date of Admission Mar 30, 2021 at 09:55 Date of Discharge 03/31/21 Attending Physician: Robina London MD Discharge Summary PROCEDURES PERFORMED DURING STAY: Right shoulder aspiration under fluoro guidance ADMITTING DIAGNOSES: Fever in immunocompromised patient, rule out secondary to right shoulder infection vs respiratory cause Acute right upper extremity/right shoulder pain, rule out secondary to rotator cuff tendinopathy vs. bursitis in the absence of full-thickness rotator cuff tear vs. septic joint vs. muscle strain/myositis Shortness of breath likely secondary to COPD exacerbation Chronic lymphedema right upper extremity s/p right breast mastectomy Breast cancer status post radiation and chemotherapy Hx of heart transplant 2019 History of atrial fibrillation RA GERD HTN Hypomagnesemia HLD Anxiety DISCHARGE DIAGNOSES: Fever in immunocompromised patient likely 2/2 to sinusitis vs. early right arm cellulitis Acute right upper extremity/right shoulder pain 2/2 to ? cellulitis, cannot r/o rotator cuff tendinopathy vs. bursitis in the absence of full-thickness rotator cuff tear vs. muscle strain/myositis Shortness of breath 2/2 COPD exacerbation Chronic lymphedema right upper extremity s/p right breast mastectomy Breast cancer status post radiation and chemotherapy Hx of heart transplant 2019 History of atrial fibrillation RA GERD HTN Hypomagnesemia HLD Anxiety COMPLICATIONS/CHIEF COMPLAINT: FEVER. HISTORY OF PRESENT ILLNESS: Patient is a 55-year-old female with past medical history of breast cancer status post radiation and chemotherapy, heart transplant 2019, history of atrial fibrillation, rheumatoid arthritis, COPD who presented to [facility] emergency room with a chief complaint of increased right arm pain beginning 03/29/2020 1 in the AM. The patient states she has had no recent trauma to the right upper extremity yet yesterday morning she noticed increasing right posterior shoulder pain along with worsening right upper extremity pain throughout yesterday and today. The patient states that she has had similar pain in her arm in the past when she has had cellulitis. She describes the pain as sharp, nonradiating localized to the posterior shoulder and the right upper extremity but not extending to the hand. She has a history of lymphedema in the right upper extremity as well and always has swelling, no increased swelling from her baseline she states if she does not wear a compression sleeve. She also states to have had 3-4 days of increased shortness of breath from baseline, productive cough of clear sputum, weakness. She also states to have only recently began with fevers at home as high as 102. She also describes some mild chest heaviness in the central part of her chest, nonradiating and associated with increased shortness of breath. She denies any sick contacts, recent illnesses, nausea, vomiting diarrhea, abdominal pain. Due to right upper extremity pain and fevers the patient came in to be further evaluated. HOSPITAL COURSE: In the emergency room, vital signs showed fever 101.7, heart rate 96, respiratory rate 20, 105/59, 96% on room air. CXR showed atelectasis, no PNA. She had no elevated WBC; however, patient is on immunosuppressants with her history of cardiac transplant. Right shoulder MRI showed 1. Degenerative changes, 2. Rotator cuff tendinopathy as described, without full-thickness tear identified. 3. Very small glenohumeral joint effusion with small fluid in the subcoracoid bursa, the latter which suggest bursitis in the absence of full- thickness rotator cuff tear. Either fluid could be septic in the appropriate clinical situation. 4. Moderate enhancing edema involving the coracobrachialis muscle with more mild edema of the pectoralis minor. This could relate to strain or myositis. Orthopedic surgery was called and Dr. Elaine will see on the hospital floor. On exam the patient had increased wheezing, coughing suspicious for respiratory illness. Respiratory panel was negative. CT of the chest was ordered to get a better look. The patient was ultimately admitted for right shoulder pain, fever in immunocompromise patient, rule out right shoulder infection versus secondary to respiratory cause. During patient's hospitalization, the following issues were treated/addressed: Fever in immunocompromised patient likely 2/2 to sinusitis vs. early right upper arm cellulitis -T-max 101.7 yesterday in ER, none since admission. Resolved SIRS -CT of the chest and chest x-ray negative for pneumonia -Procalcitonin low at 0.05 with mycoplasma, Legionella, strep pneumo studies to rule out atypical pneumonia -Resolved wheezing, negative respiratory panel -Blood cultures NG to date -UA neg -Right shoulder infection work-up neg, see below -ID assessed. Recommends to complete 7 days of levofloxacin as o/p. If symptoms return or worsen, should see provider. Acute right upper extremity/right shoulder pain, rule out secondary to rotator cuff tendinopathy vs. bursitis in the absence of full-thickness rotator cuff tear vs. septic joint vs. muscle strain/myositis -Afebrile overnight -S/p aspiration of right shoulder, yielded nothing with no fluid obtained to send GS and cultures -No erythema, incr swelling from baseline, no ROM deficits -Denies recent trauma to the right upper extremity or shoulder, denies pushing, pulling or lifting anything heavy -CT shoulder above -CRP elevated, Sed rate wnl -Orthopedic surgery, Dr. Ceja consulted, f/u note. -At this time low suspicion for septic joint, as exam did not illicit pain as it normally would with infected shoulder. F/u with PCP Shortness of breath likely secondary to COPD exacerbation -Saturating well on room air, no wheezing today -CT of the chest, chest x-ray negative for pneumonia -Resp panel negative -Continue home spiriva, PO prednisone taper over additional 6 days, levofloxacin. Chronic lymphedema right upper extremity secondary to right breast mastectomy -Per patient swelling of the right upper extremity is not worsened -Continue with right upper extremity sleeve Breast cancer status post radiation and chemotherapy -Continue with home meds -Follow-up with heme-onc, [facility] Hx of heart transplant 2019 -Follows with cardiology, transplant team through [facility] History of atrial fibrillation -Resolved after heart transplant -Currently sinus rhythm RA -C/w home meds GERD -PPI HTN -C/w home meds Hypomagnesemia -C/w home meds HLD -Home meds Anxiety -Home meds DISCHARGE MEDICATIONS: Please see below. ALLERGIES: Please see below. PHYSICAL EXAMINATION ON DISCHARGE: VS: Please see below CONSTITUTIONAL: No acute distress, resting comfortably, AAO x 3 EYES: PERRLA, EOM intact HENT, MOUTH: Normocephalic, atraumatic, moist mucous membranes NECK: SUPPLE, no JVD, no lymphadenopathy, no carotid bruit CV: Regular rate and rhythm, S1S2 normal, no murmurs/rubs/gallops RESPIRATORY: CTAB. no rales/wheezes GI: BS positive in 4 quadrants, soft, nontender, nondistended, no rebound or guarding, no organomegaly : Deferred MUSCULOSKELETAL: Right upper extremity swelling patient states this is baseline when she does not have her arm sleeve on, nonpitting, no erythema. Normal ROM of RUE. Point tenderness behind the right scapula improved, below. No cyanosis, clubbing, swelling, joint deformity, extremity edema INTEGUMENTARY: Intact, no rashes, no lesions, no erythema NEUROLOGIC: Cranial Nerves II-XII are intact, no focal deficits PSYCHIATRIC: Mood and affect are normal LABORATORY DATA: Please see below. IMAGING: CT chest: Mild subtle linear fibroatelectatic changes in the left lung corresponding to findings on x-ray. No acute consolidation or effusion. CT right shoulder: 1. Degenerative changes as described. 2. Rotator cuff tendinopathy as described, without full-thickness tear identified. 3. Very small glenohumeral joint effusion with small fluid in the subcoracoid bursa, the latter which suggest bursitis in the absence of full-thickness rotator cuff tear. Either fluid could be septic in the appropriate clinical situation. 4. Moderate enhancing edema involving the coracobrachialis muscle with more mild edema of the pectoralis minor. This could relate to strain or myositis. 5. No evidence for osteomyelitis. MICRO: Blood cultures x 2 sets-NG UA neg Sputum culture: contaminated PROGNOSIS: good ACTIVITY: As tolerated DIET: 2 gm sodium DISPOSITION: 01 Home, Self-Care. DISCHARGE INSTRUCTIONS / ITEMS TO FOLLOWUP ON ON OUTPATIENT: Please follow up with primary care provider and other specialist as already scheduled. Please update them on your most recent hospital admission. DISCHARGE CONDITION: Stable TIME SPENT ON DISCHARGE: 35 minutes. Vital Signs/I&Os Vital Signs Date Time Temp Pulse Resp B/P (MAP) Pulse Ox O2 Delivery O2 Flow Rate FiO2 03/31/21 14:00 97.6 89 18 122/78 (93) 93 Room Air I&O- Last 24 Hours up to 6 AM 03/31/21 06:00 Intake Total 1140 ml Output Total 0 ml Balance 1140 ml Laboratory Data Labs 24H Laboratory Tests 2 03/31/21 09:03: Nucleated Red Blood Cells % (auto) 0.0, Anion Gap 7L, Glomerular Filtration Rate > 60.0, Calcium Level 8.7, Total Bilirubin 0.3, Aspartate Amino Transf (AST/SGOT) 18, Alanine Aminotransferase (ALT/SGPT) 23, Alkaline Phosphatase 68, Total Protein 6.2L, Albumin 3.0L, Albumin/Globulin Ratio 0.9L CBC/BMP Laboratory Tests 03/31/21 09:03 Microbiology Microbiology 03/30/21 Gram Stain - Final, Complete 03/30/21 Sputum Culture - Final, Complete 03/30/21 Blood Culture - Preliminary, Resulted No growth after 24 hours . All specim... 03/30/21 Respiratory Virus Panel (PCR) (JORDYN) - Final, Complete 03/30/21 Blood Culture - Preliminary, Resulted No growth after 24 hours . All specim... Discharge Medications Scheduled Amlodipine Besylate (Norvasc) 10 Mg Tab, 10 MG PO DAILY, (Reported) Aspirin (Ecotrin) 81 Mg Tablet.dr, 81 MG PO DAILY, (Reported) Budesonide/Formoterol (Symbicort 160-4.5 Mcg Inhaler) 60 Puff/Inhaler Aers, 2 PUFF INH BID Calcium Carbonate/Vitamin D3 (Calcium 1,000 + D3 Caplet) 1 Each Tablet, 1 TAB PO BID, (Reported) Cyanocobalamin (Vitamin B-12) (Vitamin B-12) 1,000 Mcg Tablet, 1,000 MCG PO DAILY, (Reported) Exemestane (Exemestane) 25 Mg Tablet, 25 MG PO DAILY, (Reported) Folic Acid (Folic Acid) 1 Mg Tablet, 1 MG PO DAILY, (Reported) Levofloxacin (Levofloxacin) 500 Mg Tablet, 500 MG PO DAILY Losartan Potassium (Losartan Potassium) 50 Mg Tablet, 50 MG PO QHS, (Reported) Magnesium Oxide (Magnesium Oxide) 400 Mg Tablet, 400 MG PO BID, (Reported) Methotrexate Sodium (Methotrexate) 2.5 Mg Tablet, 10 MG PO 1XWK, (Reported) DOES ON THURSDAYS Metoprolol Succinate (Metoprolol Succinate) 25 Mg Tab.er.24h, 12.5 MG PO DAILY, (Reported) Multivitamins (Thera M Plus Tablet) 1 Each Tablet, 1 TAB PO DAILY, (Reported) Pantoprazole Sodium (Pantoprazole Sodium) 40 Mg Tablet.dr, 40 MG PO DAILY, (Reported) Pravastatin Sodium (Pravastatin Sodium) 40 Mg Tab, 40 MG PO QHS, (Reported) Prednisone (Prednisone) 20 Mg Tablet, 40 MG PO DAILY prednisone taper: 40 mg PO x 1 day, 20 mg PO x 3 days, 10 mg PO x 2 days. After that, can resume home prednisone 5 mg daily. Sirolimus (Sirolimus) 1 Mg Tablet, 1 TAB PO DAILY, (Reported) Tacrolimus (Tacrolimus) 1 Mg Capsule, 2 CAP PO BID, (Reported) Torsemide (Torsemide) 20 Mg Tablet, 10 MG PO DAILY, (Reported) Trazodone HCl (Trazodone HCl) 100 Mg Tablet, 200 MG PO QHS, (Reported) Venlafaxine HCl (Venlafaxine HCl ER) 75 Mg Cap.er.24h, 75 MG PO DAILY, (Reported) Scheduled PRN Acetaminophen (Acetaminophen) 325 Mg Tablet, 650 MG PO Q6HP PRN for PAIN / FEVER Albuterol Sulfate (Proair Respiclick) 90 Mcg Aer.pow.ba, 2 PUFF INH Q4-6HP PRN for shortness of breath Albuterol Sulfate (Albuterol Sulfate) 1.25 Mg/3 Ml Vial.neb, 1 VIAL NEB Q4-6HP PRN for SHORTNESS OF BREATH, (Reported) Alprazolam (Alprazolam) 0.5 Mg Tablet, 0.5 MG PO DAILY PRN for ANXIETY, (Reported) Allergies Coded Allergies: Sulfa (Sulfonamide Antibiotics) (Verified Allergy, Intermediate, RASH AND HIVES, 07/27/20) vancomycin (Verified Adverse Reaction, Intermediate, rash on chest, head felt hot, 07/27/20) morphine (Verified Adverse Reaction, Mild, lethargy, 07/27/20) NSAIDS (Non-Steroidal Anti-Inflamma (Verified Adverse Reaction, Unknown, states cant have due to heart transplant, 11/12/20) pseudoephedrine (Unverified Adverse Reaction, Unknown, CONTRAINDICATION, 07/27/20) CONTRAINDICATION Robina London MD Mar 31, 2021 19:03
[2021-04-01] MEDS ORDERED: predniSONE 20 MG TAB PO SCH (09:00)
== END 2021-03-31 18:45 | disposition home or self-care (01) | DRG 603 ==
LOC: M ED 23:10 → M ED INP 03-30 09:55 → ENRESERV 03-30 14:33 → M MSPAV 03-30 15:17 → OBSVTOIN 03-31 08:24
PROVIDERS: ADMIT Internal Medicine; ATTEND Internal Medicine
PROC: 0R9J3ZX Drainage of Right Shoulder Joint, Percutaneous Approach, Diagnostic (ICD-10-PCS; principal; 2021-03-31)
DX: L03.115 Cellulitis of right lower limb (principal); J44.1 Chronic obstructive pulmonary disease with (acute) exacerbation; Z94.1 Heart transplant status; M75.51 Bursitis of right shoulder; R50.9 Fever, unspecified; I97.2 Postmastectomy lymphedema syndrome; E83.42 Hypomagnesemia; J32.9 Chronic sinusitis, unspecified; E78.5 Hyperlipidemia, unspecified; K21.9 Gastro-esophageal reflux disease without esophagitis; F41.9 Anxiety disorder, unspecified; M06.9 Rheumatoid arthritis, unspecified; Z79.82 Long term (current) use of aspirin; Z79.899 Other long term (current) drug therapy; Z88.2 Allergy status to sulfonamides; Z88.5 Allergy status to narcotic agent; Z88.1 Allergy status to other antibiotic agents; Z88.8 Allergy status to other drugs, medicaments and biological substances; Z85.3 Personal history of malignant neoplasm of breast; Z92.21 Personal history of antineoplastic chemotherapy; Z92.3 Personal history of irradiation; Z87.891 Personal history of nicotine dependence

== ENCOUNTER → 2021-04-27 | Outpatient (CLI) | payer MEDICARE ==
[~2021-04-27] MED LIST changes: +ECOT81TA5 PO; +SIRO1TAB3 PO
--- NOTE | 2021-04-27 09:19 | REPMRS ---
Patient History The patient states she had a clinical breast exam in January 2021. Patient has history of cancer in the right breast at age 53, had previous chest radiation therapy at age 53, had previous chemotherapy at age 53, and had first child at age 33. No known family history of cancer. Malignant US guided breast biopsy of the right breast, May 11, 2019. Malignant mastectomy of the right breast, 2019. Benign stereotatic breast biopsy of the right breast, 2007. Took hormonal contraceptives for 8 months. Taking tamoxifen for 1 year 6 months. Taking unspecified hormones for 15 years. Tomosynthesis is performed. Volpara breast density is b. Diagnostic Unilateral Mammo: Left Breast - April 27, 2021 - Exam #: [id number] CC and MLO view(s) were taken of the left breast. Technologist: RT Hue Prior study comparison: April 25, 2020, left breast diagnostic unilateral mammo performed at [facility]. May 11, 2019, right breast digital mammo diagnostic unilateral, performed at [facility]. FINDINGS: There are scattered fibroglandular densities. There has been no change in the appearance of the mammogram from the prior studies. There is a mild amount of residual fibroglandular tissue . There is no interval development of dominant mass, architectural distortion, or clustered microcalcification suggestive of malignancy. No significant changes when compared with prior studies. Assessment: BI-RADS/ACR category 1 mammogram. Negative Mammogram. Recommendation Routine screening mammogram in 1 year (for women over age 40). This mammogram was interpreted with the aid of an FDA-approved computer-aided dectection system. Electronically Signed By: Brody Carrillo MD 04/27/21 0918
== END ==
LOC: M WHC 08:22
PROVIDERS: ATTEND Surgery
DX: C50.111 Malignant neoplasm of central portion of right female breast (principal); Z17.0 Estrogen receptor positive status [ER+]
CPT/HCPCS: 77065; G0279

== ENCOUNTER 2021-05-11 11:22 | Outpatient (CLI) | payer MEDICARE, OTHER ==
[~2021-05-11] VITALS: Ht 170.2 cm; Wt 89.0 kg
[~2021-05-11 11:22] MED LIST changes: +ALBUTEROL 90 MCG/ACT 8GM HFA INHALER INH PRN; +ALBUTEROL SULFATE 2.5 MG/0.5 ML INH NEB SOLN INH PRN; -CEFD1CAP8 PO; +CEFD300C41 PO; +EPINEPHrine INJ 1 MG/ML 1ML AMP IM PRN; -LEVO500T3 PO; +LEVO500T4 PO; +LOSA50TA28 PO; -LOSA50TA88 PO; +NS 1,000 ML IV SCH; +POTA-151; -POTA20TA6; +diphenhydrAMINE 50MG/ML VIAL (J1200) IV PRN; +methylPREDNISolone 125MG 2ML VIAL IV PRN
[2021-05-11] MEDS ORDERED: SOTROVIMAB 500 MG in NS 100 ML IV ONE (12:00)
[2021-05-11 12:09] VITALS: BP 117/71
[2021-05-11 12:39] VITALS: BP 99/58
[2021-05-11 13:39] VITALS: BP 135/79
== END 2021-05-11 13:43 | disposition home or self-care (01) ==
LOC: M OPCLI4PR 11:22
PROVIDERS: ATTEND Physician Assistant
DX: U07.1 COVID-19 (principal)

== ENCOUNTER → 2021-05-24 | Outpatient (CLI) | payer MEDICARE, OTHER ==
[~2021-05-24] MED LIST changes: -ALBUTEROL 90 MCG/ACT 8GM HFA INHALER INH PRN; -ALBUTEROL SULFATE 2.5 MG/0.5 ML INH NEB SOLN INH PRN; -EPINEPHrine INJ 1 MG/ML 1ML AMP IM PRN; -NS 1,000 ML IV SCH; -diphenhydrAMINE 50MG/ML VIAL (J1200) IV PRN; -methylPREDNISolone 125MG 2ML VIAL IV PRN
[2021-05-24 11:36] LABS: BASO % 0.3 % (0.0-1.0); EOS % 1.3 % (0.0-3.0); HEMATOCRIT 43.4 % (36.0-47.0); HEMOGLOBIN 14.4 g/dl (12.0-15.5); LYMPH # 0.4 10^3/uL (1.5-5.0); LYMPH % 11.1 % (24.0-44.0); MEAN CORPUSCULAR HEMOGLOBIN 34.6 pg (27.0-33.0); MEAN CORPUSCULAR HGB CONC 33.2 g/dl (32.0-36.5); MEAN CORPUSCULAR VOLUME 104.3 fl (80.0-96.0); MONO # 0.5 10^3/uL (0.0-0.8); MONO % 16.1 % (2.0-8.0); NEUTROPHILS # 2.2 10^3/uL (1.5-8.5); NEUTROPHILS % 69.3 % (36.0-66.0); PLATELET COUNT, AUTOMATED 181 10^3/uL (150-450); RED BLOOD COUNT 4.16 10^6/uL (4.00-5.40); WHITE BLOOD COUNT 3.2 10^3/uL (4.0-10.0)
[2021-05-24 12:55] LABS: ALBUMIN 3.4 GM/DL (3.2-5.2); ALT/SGPT 51 U/L (12-78); BILIRUBIN,TOTAL 0.4 MG/DL (0.2-1.0); BLOOD UREA NITROGEN 15 MG/DL (7-18); CALCIUM LEVEL 8.4 MG/DL (8.5-10.1); CARBON DIOXIDE LEVEL 30 MEQ/L (21-32); CHLORIDE LEVEL 109 MEQ/L (98-107); CHOLESTEROL LEVEL 177 MG/DL (<200); CHOLESTEROL RISK RATIO 1.824 (<5); CREATININE FOR GFR 0.86 MG/DL (0.55-1.30); FREE T4 0.99 NG/DL (0.76-1.46); GLOMERULAR FILTRATION RATE > 60.0 (>51); GLUCOSE, FASTING 81 MG/DL (70-100); HDL CHOLESTEROL 97 MG/DL (>40); LDL CHOLESTEROL 58 MG/DL (<100); MAGNESIUM LEVEL 1.9 MG/DL (1.8-2.4); NON-HDL-C 80 MG/DL; POTASSIUM SERUM 3.9 MEQ/L (3.5-5.1); SODIUM LEVEL 144 MEQ/L (136-145); TOTAL 25(OH) VITAMIN D 47.6 NG/ML (30.0-100.0); TOTAL PROTEIN 6.4 GM/DL (6.4-8.2); TRIGLYCERIDES LEVEL 112 MG/DL (<150)
[2021-05-24 14:37] LABS: CREATININE, SERUM 0.8 MG/DL (0.6-1.0); CREATININE, URINE 45.7 MG/DL
== END ==
LOC: M PLALAB 08:07 → M LAB 08:07
PROVIDERS: ATTEND Nurse Practitioner Acute Care
DX: D84.9 Immunodeficiency, unspecified (principal); Z79.899 Other long term (current) drug therapy; Z94.1 Heart transplant status

== ENCOUNTER → 2021-06-05 | Outpatient (CLI) | payer OTHER, MEDICARE | LOC: M SOG 08:36 | PROVIDERS: ATTEND Orthopaedic Surgery Adult Reconstructive Orthopaedic Surgery | DX: M79.671 Pain in right foot (principal) ==

== ENCOUNTER 2021-06-30 04:42 | Inpatient (IN) | payer MEDICARE, OTHER ==
[~2021-06-30] VITALS: Ht 170.2 cm; Wt 92.1 kg
[2021-06-30] MEDS ORDERED: NS 1,000 ML IV ONE (05:05)
[2021-06-30] MEDS ORDERED: ACETAMINOPHEN TAB 650MG DOSE (2X325MG) PO ONE (05:05)
[2021-06-30] MEDS ORDERED: IPRATROPIUM 0.5MG/ALBUTEROL 2.5MG INH SOL UD 3ML (DUONEB) NEB ONE (05:05)
[2021-06-30 05:24] LABS: ABG BASE EXCESS 2.4 (-2.0-2.0); ABG HCO3 25.5 MEQ/L (22.0-26.0); ABG O2 SATURATION 94.9 % (95.0-99.0); ABG PARTIAL PRESSURE CO2 34.8 mmHg (35.0-45.0); ABG PARTIAL PRESSURE O2 72.5 mmHg (75.0-100.0); ABG STANDARD HCO3 26.5 MEQ/L (22.0-26.0); ABG TOTAL CO2 26.6 MEQ/L (22.0-29.0); ABG pH (ARTERIAL) 7.483 UNITS (7.350-7.450)
[2021-06-30 05:26] LABS: BASO % 0.2 % (0.0-1.0); EOS % 0.2 % (0.0-3.0); HEMATOCRIT 39.6 % (36.0-47.0); HEMOGLOBIN 13.2 g/dl (12.0-15.5); LYMPH # 0.2 10^3/uL (1.5-5.0); LYMPH % 3.9 % (24.0-44.0); MEAN CORPUSCULAR HEMOGLOBIN 34.6 pg (27.0-33.0); MEAN CORPUSCULAR HGB CONC 33.3 g/dl (32.0-36.5); MEAN CORPUSCULAR VOLUME 103.7 fl (80.0-96.0); MONO # 0.3 10^3/uL (0.0-0.8); MONO % 8.1 % (2.0-8.0); NEUTROPHILS # 3.5 10^3/uL (1.5-8.5); NEUTROPHILS % 86.6 % (36.0-66.0); PLATELET COUNT, AUTOMATED 146 10^3/uL (150-450); RED BLOOD COUNT 3.82 10^6/uL (4.00-5.40); WHITE BLOOD COUNT 4.1 10^3/uL (4.0-10.0)
[2021-06-30 05:44] LABS: CK-MB VALUE MASS < 1.0 NG/ML (<3.6); CPK CREATINE PHOSPHOKINASE 53 U/L (26-192); MB/CK RELATIVE INDEX 1.89 (< OR =4)
[2021-06-30 05:46] LABS: ALBUMIN 3.1 GM/DL (3.2-5.2); ALT/SGPT 18 U/L (12-78); BILIRUBIN,DIRECT 0.2 MG/DL (0.0-0.2); BILIRUBIN,TOTAL 0.5 MG/DL (0.2-1.0); BLOOD UREA NITROGEN 16 MG/DL (7-18); CALCIUM LEVEL 7.6 MG/DL (8.5-10.1); CARBON DIOXIDE LEVEL 28 MEQ/L (21-32); CHLORIDE LEVEL 107 MEQ/L (98-107); CREATININE FOR GFR 0.76 MG/DL (0.55-1.30); GLOMERULAR FILTRATION RATE > 60.0 (>51); GLUCOSE, FASTING 115 MG/DL (70-100); NT-PRO BNP 254 PG/ML (<125); POTASSIUM SERUM 3.5 MEQ/L (3.5-5.1); SODIUM LEVEL 141 MEQ/L (136-145)
[2021-06-30] MEDS ORDERED: PIPERACILLIN/TAZOBACTAM SOD 3.375 GM in D5W MINI-BAG PLUS 50 ML IV ONE (06:50)
[2021-06-30 07:05] LABS: CK-MB VALUE MASS < 1.0 NG/ML (<3.6); CPK CREATINE PHOSPHOKINASE 56 U/L (26-192); MB/CK RELATIVE INDEX 1.79 (< OR =4)
[2021-06-30] MEDS ORDERED: PRED25TA PO (08:12)
[2021-06-30] MEDS ORDERED: METOPROLOL SUCC *XL* 12.5MG PER 1/2 TAB (TopROL *XL*) PO SCH (09:00)
[2021-06-30] MEDS ORDERED: PIPERACILLIN/TAZOBACTAM SOD 3.375 GM in D5W MINI-BAG PLUS 50 ML IV SCH (10:35)
[2021-06-30] MEDS: IPRATROPIUM 0.5MG/ALBUTEROL 2.5MG INH SOL UD 3ML (DUONEB) NEB SCH ×3 (10:38→11:06)
[2021-06-30] MEDS ORDERED: ACET32TAB PO (10:52)
[2021-06-30] MEDS ORDERED: SIRO1TAB PO (10:52)
[2021-06-30] MEDS ORDERED: TACR1CAP3 PO (10:52)
[2021-06-30] MEDS ORDERED: PROAAER10 INH (10:52)
[2021-06-30] MEDS ORDERED: HOME MED LIST COMPLETE! XX SCH (10:55)
[2021-06-30] MEDS ORDERED: ACETAMINOPHEN 325 MG TAB PO ONE (10:55)
[2021-06-30 13:12] VITALS: BP 113/69
[2021-06-30] MEDS ORDERED: ALBUTEROL SULFATE 2.5 MG/0.5 ML INH NEB SOLN NEB PRN (13:15)
[2021-06-30] MEDS: ALBUTEROL SULFATE 2.5 MG/0.5 ML INH NEB SOLN NEB SCH ×3 (13:45→19:47)
[2021-06-30 14:00] VITALS: BP 115/69
[2021-06-30] MEDS: FOLIC ACID 1 MG TAB PO SCH (14:01)
[2021-06-30] MEDS: PIPERACILLIN/TAZOBACTAM SOD 4.5 GM in D5W MINI-BAG PLUS 50 ML IV SCH ×2 (14:01→18:16)
[2021-06-30] MEDS: MAGNESIUM OXIDE 400MG TAB (MAG-OX) PO SCH (18:17)
[2021-06-30] MEDS: ACETAMINOPHEN TAB 650MG DOSE (2X325MG) PO PRN (18:21)
[2021-06-30] MEDS ORDERED: ALBUTEROL 90 MCG/ACT 8GM HFA INHALER INH PRN (20:00)
[2021-06-30] MEDS: LOSARTAN 50MG TABLET PO SCH (20:46)
[2021-06-30] MEDS: ALPRAZolam 0.5 MG TAB PO SCH (20:47)
[2021-06-30] MEDS: traZODone 100 MG TAB PO SCH (20:47)
[2021-06-30] MEDS: PRAVASTATIN 20 MG TAB PO SCH (20:47)
[2021-06-30] MEDS: TACROLIMUS 1 MG CAP (J7507) PO SCH (20:48)
[2021-06-30] MEDS: ENOXAPARIN 40MG/0.4ML SYRINGE (J1650 PER 10MG) SC SCH (20:48)
[2021-06-30 22:00] VITALS: BP 110/64
[2021-07-01] MEDS: PIPERACILLIN/TAZOBACTAM SOD 4.5 GM in D5W MINI-BAG PLUS 50 ML IV SCH ×4 (00:48→18:23)
[2021-07-01] MEDS: ALBUTEROL SULFATE 2.5 MG/0.5 ML INH NEB SOLN NEB SCH ×4 (02:03→20:23)
[2021-07-01] MEDS: ACETAMINOPHEN TAB 650MG DOSE (2X325MG) PO PRN (05:31)
[2021-07-01 06:00] VITALS: BP 118/72
[2021-07-01 07:58] LABS: HEMATOCRIT 35.3 % (36.0-47.0); HEMOGLOBIN 11.6 g/dl (12.0-15.5); MEAN CORPUSCULAR HEMOGLOBIN 34.7 pg (27.0-33.0); MEAN CORPUSCULAR HGB CONC 32.9 g/dl (32.0-36.5); MEAN CORPUSCULAR VOLUME 105.7 fl (80.0-96.0); PLATELET COUNT, AUTOMATED 120 10^3/uL (150-450); RED BLOOD COUNT 3.34 10^6/uL (4.00-5.40); WHITE BLOOD COUNT 5.3 10^3/uL (4.0-10.0)
[2021-07-01] MEDS ORDERED: FIORICET TAB PO PRN (08:15)
[2021-07-01 08:20] LABS: BLOOD UREA NITROGEN 11 MG/DL (7-18); CALCIUM LEVEL 7.7 MG/DL (8.5-10.1); CARBON DIOXIDE LEVEL 29 MEQ/L (21-32); CHLORIDE LEVEL 109 MEQ/L (98-107); CREATININE FOR GFR 0.69 MG/DL (0.55-1.30); GLOMERULAR FILTRATION RATE > 60.0 (>51); GLUCOSE, FASTING 95 MG/DL (70-100); POTASSIUM SERUM 3.6 MEQ/L (3.5-5.1); SODIUM LEVEL 142 MEQ/L (136-145)
[2021-07-01] MEDS: TIOTROPIUM INHALER/CAPSULE (SPIRIVA) INH SCH (08:21)
[2021-07-01 08:40] LABS: LYMPHOCYTES 5 % (16-44); MONOCYTES 6 % (0-5); NEUTROPHILS 75 % (28-66)
[2021-07-01 08:42] LABS: PLATELET ESTIMATE DECREASED (NORMAL)
[2021-07-01 08:44] LABS: POLYCHROMASIA 1+
[2021-07-01] MEDS ORDERED: NON-FORMULARY 1 EA EA PO SCH (09:00)
[2021-07-01] MEDS ORDERED: oxyCODONE 5MG TAB PO ONE (09:00)
[2021-07-01] MEDS: ASPIRIN 81MG ENTERIC TABLET PO SCH ×2 (09:00→11:55)
[2021-07-01] MEDS: predniSONE 2.5 MG TAB PO SCH (09:38)
[2021-07-01] MEDS: CYANOCOBALAMIN 500 MCG TAB PO SCH (09:38)
[2021-07-01] MEDS: FOLIC ACID 1 MG TAB PO SCH (09:38)
[2021-07-01] MEDS: PANTOPRAZOLE 40MG TAB (PROTONIX) PO SCH (09:38)
[2021-07-01] MEDS: METOPROLOL SUCC *XL* 12.5MG PER 1/2 TAB (TopROL *XL*) PO SCH (09:39)
[2021-07-01] MEDS: TACROLIMUS 1 MG CAP (J7507) PO SCH ×2 (09:40→20:40)
[2021-07-01] MEDS: SIROLIMUS 1 MG TAB (RAPAMUNE) PO SCH (09:40)
[2021-07-01] MEDS: VENLAFAXINE **XR** 75MG CAPSULE PO SCH (09:40)
[2021-07-01] MEDS: MAGNESIUM OXIDE 400MG TAB (MAG-OX) PO SCH ×2 (12:42→18:23)
[2021-07-01 14:00] VITALS: BP 119/62
[2021-07-01] MEDS: ENOXAPARIN 40MG/0.4ML SYRINGE (J1650 PER 10MG) SC SCH (20:40)
[2021-07-01] MEDS: ALPRAZolam 0.5 MG TAB PO SCH (20:40)
[2021-07-01] MEDS: traZODone 100 MG TAB PO SCH (20:40)
[2021-07-01] MEDS: PRAVASTATIN 20 MG TAB PO SCH (20:40)
[2021-07-01] MEDS: LOSARTAN 50MG TABLET PO SCH (20:41)
[2021-07-01 22:00] VITALS: BP 107/65
[2021-07-02] MEDS: PIPERACILLIN/TAZOBACTAM SOD 4.5 GM in D5W MINI-BAG PLUS 50 ML IV SCH ×4 (00:25→18:15)
[2021-07-02] MEDS: ALBUTEROL SULFATE 2.5 MG/0.5 ML INH NEB SOLN NEB SCH ×5 (01:08→18:10)
[2021-07-02] MEDS: BENZONATATE 100MG CAPSULE PO PRN ×2 (05:31→20:27)
[2021-07-02 05:56] LABS: BASO % 0.4 % (0.0-1.0); EOS # 0.1 10^3/uL (0.0-0.5); EOS % 1.4 % (0.0-3.0); HEMATOCRIT 35.4 % (36.0-47.0); HEMOGLOBIN 11.7 g/dl (12.0-15.5); LYMPH # 0.3 10^3/uL (1.5-5.0); LYMPH % 6.6 % (24.0-44.0); MEAN CORPUSCULAR HGB CONC 33.1 g/dl (32.0-36.5); MONO # 0.4 10^3/uL (0.0-0.8); NEUTROPHILS # 4.1 10^3/uL (1.5-8.5); NEUTROPHILS % 79.9 % (36.0-66.0); PLATELET COUNT, AUTOMATED 153 10^3/uL (150-450); RED BLOOD COUNT 3.34 10^6/uL (4.00-5.40); WHITE BLOOD COUNT 5.2 10^3/uL (4.0-10.0)
[2021-07-02 06:00] VITALS: BP 117/69
[2021-07-02 06:14] LABS: BLOOD UREA NITROGEN 8 MG/DL (7-18); CALCIUM LEVEL 8.1 MG/DL (8.5-10.1); CARBON DIOXIDE LEVEL 30 MEQ/L (21-32); CHLORIDE LEVEL 108 MEQ/L (98-107); CREATININE FOR GFR 0.56 MG/DL (0.55-1.30); GLOMERULAR FILTRATION RATE > 60.0 (>51); GLUCOSE, FASTING 82 MG/DL (70-100); POTASSIUM SERUM 3.7 MEQ/L (3.5-5.1); SODIUM LEVEL 142 MEQ/L (136-145)
[2021-07-02] MEDS: TIOTROPIUM INHALER/CAPSULE (SPIRIVA) INH SCH (07:18)
[2021-07-02] MEDS: FOLIC ACID 1 MG TAB PO SCH (08:08)
[2021-07-02] MEDS: ASPIRIN 81MG ENTERIC TABLET PO SCH (08:08)
[2021-07-02] MEDS: CYANOCOBALAMIN 500 MCG TAB PO SCH (08:08)
[2021-07-02] MEDS: SIROLIMUS 1 MG TAB (RAPAMUNE) PO SCH (08:09)
[2021-07-02] MEDS: predniSONE 2.5 MG TAB PO SCH (08:09)
[2021-07-02] MEDS: PANTOPRAZOLE 40MG TAB (PROTONIX) PO SCH (08:09)
[2021-07-02] MEDS: METOPROLOL SUCC *XL* 12.5MG PER 1/2 TAB (TopROL *XL*) PO SCH (08:09)
[2021-07-02] MEDS: TACROLIMUS 1 MG CAP (J7507) PO SCH ×2 (08:09→20:24)
[2021-07-02] MEDS: VENLAFAXINE **XR** 75MG CAPSULE PO SCH (08:09)
[2021-07-02] MEDS: MAGNESIUM OXIDE 400MG TAB (MAG-OX) PO SCH ×2 (11:38→18:15)
[2021-07-02] MEDS: ACETAMINOPHEN 500 MG TAB PO PRN (11:38)
[2021-07-02 14:00] VITALS: BP 107/69
[2021-07-02] MEDS: ENOXAPARIN 40MG/0.4ML SYRINGE (J1650 PER 10MG) SC SCH (20:24)
[2021-07-02] MEDS: ALPRAZolam 0.5 MG TAB PO SCH (20:24)
[2021-07-02] MEDS: traZODone 100 MG TAB PO SCH (20:24)
[2021-07-02] MEDS: LOSARTAN 25 MG TAB PO SCH (20:25)
[2021-07-02] MEDS: PRAVASTATIN 20 MG TAB PO SCH (20:25)
[2021-07-02 22:00] VITALS: BP 128/77
[2021-07-03] MEDS: PIPERACILLIN/TAZOBACTAM SOD 4.5 GM in D5W MINI-BAG PLUS 50 ML IV SCH ×4 (00:36→18:31)
[2021-07-03] MEDS: ALBUTEROL SULFATE 2.5 MG/0.5 ML INH NEB SOLN NEB SCH ×4 (02:45→19:31)
[2021-07-03 06:00] VITALS: BP 122/75
[2021-07-03 06:24] LABS: BASO % 0.3 % (0.0-1.0); EOS # 0.1 10^3/uL (0.0-0.5); EOS % 2.7 % (0.0-3.0); HEMATOCRIT 34.9 % (36.0-47.0); HEMOGLOBIN 11.7 g/dl (12.0-15.5); LYMPH # 0.4 10^3/uL (1.5-5.0); LYMPH % 10.5 % (24.0-44.0); MEAN CORPUSCULAR HGB CONC 33.5 g/dl (32.0-36.5); MEAN CORPUSCULAR VOLUME 104.5 fl (80.0-96.0); MONO # 0.4 10^3/uL (0.0-0.8); MONO % 10.5 % (2.0-8.0); NEUTROPHILS # 2.8 10^3/uL (1.5-8.5); NEUTROPHILS % 74.1 % (36.0-66.0); PLATELET COUNT, AUTOMATED 174 10^3/uL (150-450); RED BLOOD COUNT 3.34 10^6/uL (4.00-5.40); WHITE BLOOD COUNT 3.7 10^3/uL (4.0-10.0)
[2021-07-03 06:54] LABS: BLOOD UREA NITROGEN 8 MG/DL (7-18); CALCIUM LEVEL 8.2 MG/DL (8.5-10.1); CARBON DIOXIDE LEVEL 32 MEQ/L (21-32); CHLORIDE LEVEL 109 MEQ/L (98-107); CREATININE FOR GFR 0.55 MG/DL (0.55-1.30); GLOMERULAR FILTRATION RATE > 60.0 (>51); GLUCOSE, FASTING 86 MG/DL (70-100); POTASSIUM SERUM 3.8 MEQ/L (3.5-5.1); SODIUM LEVEL 143 MEQ/L (136-145)
[2021-07-03] MEDS: TIOTROPIUM INHALER/CAPSULE (SPIRIVA) INH SCH (07:42)
[2021-07-03] MEDS: BUDESONIDE 0.5 MG/2 ML INHALATION SUSPENSION INH SCH ×2 (08:00→19:31)
[2021-07-03 08:37] LABS: C REACTIVE PROTEIN QUANTITATIV 7.11 MG/DL (0.00-0.30)
[2021-07-03] MEDS: FOLIC ACID 1 MG TAB PO SCH (08:47)
[2021-07-03] MEDS: ASPIRIN 81MG ENTERIC TABLET PO SCH (08:47)
[2021-07-03] MEDS: TACROLIMUS 1 MG CAP (J7507) PO SCH ×2 (08:48→21:15)
[2021-07-03] MEDS: SIROLIMUS 1 MG TAB (RAPAMUNE) PO SCH (08:48)
[2021-07-03] MEDS: VENLAFAXINE **XR** 75MG CAPSULE PO SCH (08:49)
[2021-07-03] MEDS: PANTOPRAZOLE 40MG TAB (PROTONIX) PO SCH (08:49)
[2021-07-03] MEDS: predniSONE 2.5 MG TAB PO SCH (08:49)
[2021-07-03] MEDS: CYANOCOBALAMIN 500 MCG TAB PO SCH (08:49)
[2021-07-03] MEDS: METOPROLOL SUCC *XL* 12.5MG PER 1/2 TAB (TopROL *XL*) PO SCH (08:50)
[2021-07-03] MEDS: MAGNESIUM OXIDE 400MG TAB (MAG-OX) PO SCH ×2 (12:09→18:31)
[2021-07-03 14:00] VITALS: BP 118/72
[2021-07-03] MEDS: PRAVASTATIN 20 MG TAB PO SCH (21:15)
[2021-07-03] MEDS: ALPRAZolam 0.5 MG TAB PO SCH (21:15)
[2021-07-03] MEDS: ENOXAPARIN 40MG/0.4ML SYRINGE (J1650 PER 10MG) SC SCH (21:15)
[2021-07-03] MEDS: traZODone 100 MG TAB PO SCH (21:15)
[2021-07-03] MEDS: LOSARTAN 25 MG TAB PO SCH (21:16)
[2021-07-03] MEDS: ACETAMINOPHEN 500 MG TAB PO PRN (21:26)
[2021-07-03 22:00] VITALS: BP 126/80
[2021-07-04] MEDS: PIPERACILLIN/TAZOBACTAM SOD 4.5 GM in D5W MINI-BAG PLUS 50 ML IV SCH ×2 (01:13→06:14)
[2021-07-04] MEDS: ALBUTEROL SULFATE 2.5 MG/0.5 ML INH NEB SOLN NEB SCH ×2 (02:43→05:53)
[2021-07-04] MEDS: BUDESONIDE 0.5 MG/2 ML INHALATION SUSPENSION INH SCH (05:53)
[2021-07-04] MEDS: TIOTROPIUM INHALER/CAPSULE (SPIRIVA) INH SCH (05:53)
[2021-07-04 06:00] VITALS: BP 131/86
[2021-07-04 06:26] LABS: BASO % 0.3 % (0.0-1.0); EOS # 0.1 10^3/uL (0.0-0.5); EOS % 2.1 % (0.0-3.0); HEMATOCRIT 35.3 % (36.0-47.0); HEMOGLOBIN 11.9 g/dl (12.0-15.5); LYMPH # 0.5 10^3/uL (1.5-5.0); LYMPH % 12.1 % (24.0-44.0); MEAN CORPUSCULAR HEMOGLOBIN 34.8 pg (27.0-33.0); MEAN CORPUSCULAR HGB CONC 33.7 g/dl (32.0-36.5); MEAN CORPUSCULAR VOLUME 103.2 fl (80.0-96.0); MONO # 0.5 10^3/uL (0.0-0.8); MONO % 11.8 % (2.0-8.0); NEUTROPHILS # 2.8 10^3/uL (1.5-8.5); NEUTROPHILS % 71.9 % (36.0-66.0); PLATELET COUNT, AUTOMATED 187 10^3/uL (150-450); RED BLOOD COUNT 3.42 10^6/uL (4.00-5.40); WHITE BLOOD COUNT 3.9 10^3/uL (4.0-10.0)
[2021-07-04 06:53] LABS: BLOOD UREA NITROGEN 9 MG/DL (7-18); C REACTIVE PROTEIN QUANTITATIV 3.66 MG/DL (0.00-0.30); CALCIUM LEVEL 8.3 MG/DL (8.5-10.1); CARBON DIOXIDE LEVEL 31 MEQ/L (21-32); CHLORIDE LEVEL 109 MEQ/L (98-107); CREATININE FOR GFR 0.64 MG/DL (0.55-1.30); GLOMERULAR FILTRATION RATE > 60.0 (>51); GLUCOSE, FASTING 102 MG/DL (70-100); POTASSIUM SERUM 3.7 MEQ/L (3.5-5.1); SODIUM LEVEL 142 MEQ/L (136-145)
[2021-07-04] MEDS ORDERED: CEFDINIR 300 MG CAP (OMNICEF) PO SCH (09:00)
[2021-07-04] MEDS ORDERED: PRED20TA PO (09:26)
[2021-07-04] MEDS ORDERED: CEFD300CAP PO (09:26)
[2021-07-04] MEDS: TACROLIMUS 1 MG CAP (J7507) PO SCH (09:53)
[2021-07-04] MEDS: CYANOCOBALAMIN 500 MCG TAB PO SCH (09:54)
[2021-07-04] MEDS: ASPIRIN 81MG ENTERIC TABLET PO SCH (09:54)
[2021-07-04] MEDS: FOLIC ACID 1 MG TAB PO SCH (09:54)
[2021-07-04] MEDS: VENLAFAXINE **XR** 75MG CAPSULE PO SCH (09:55)
[2021-07-04] MEDS: PANTOPRAZOLE 40MG TAB (PROTONIX) PO SCH (09:55)
[2021-07-04] MEDS: predniSONE 2.5 MG TAB PO SCH (09:55)
[2021-07-04 09:59] VITALS: BP 109/68
[2021-07-04] MEDS: METOPROLOL SUCC *XL* 12.5MG PER 1/2 TAB (TopROL *XL*) PO SCH (09:59)
[2021-07-04] MEDS: SIROLIMUS 1 MG TAB (RAPAMUNE) PO SCH (10:24)
[2021-07-06] MEDS ORDERED: METHOTREXATE 2.5 MG TAB (J8610 PER 2.5MG) PO SCH (09:00)
== END 2021-07-04 11:17 | disposition home or self-care (01) | DRG 871 ==
LOC: M ED 04:42 → M ED INP 10:33 → ENRESERV 12:16 → M MSPAV 13:14
PROVIDERS: ADMIT Internal Medicine Nephrology; ATTEND Internal Medicine Nephrology
DX: A41.9 Sepsis, unspecified organism (principal); J14 Pneumonia due to Hemophilus influenzae; J96.01 Acute respiratory failure with hypoxia; Z94.1 Heart transplant status; J44.0 Chronic obstructive pulmonary disease with (acute) lower respiratory infection; Z79.52 Long term (current) use of systemic steroids; Z79.899 Other long term (current) drug therapy; Z88.2 Allergy status to sulfonamides; K21.9 Gastro-esophageal reflux disease without esophagitis; Z88.1 Allergy status to other antibiotic agents; Z88.5 Allergy status to narcotic agent; Z88.6 Allergy status to analgesic agent; Z88.8 Allergy status to other drugs, medicaments and biological substances; F41.9 Anxiety disorder, unspecified; G47.33 Obstructive sleep apnea (adult) (pediatric); M06.9 Rheumatoid arthritis, unspecified; I10 Essential (primary) hypertension; E83.42 Hypomagnesemia; E78.5 Hyperlipidemia, unspecified; E03.9 Hypothyroidism, unspecified; Z87.891 Personal history of nicotine dependence; F32.A Depression, unspecified; G47.00 Insomnia, unspecified; Z92.21 Personal history of antineoplastic chemotherapy; Z90.11 Acquired absence of right breast and nipple; Z98.84 Bariatric surgery status; Z79.82 Long term (current) use of aspirin; Z92.3 Personal history of irradiation; Z85.3 Personal history of malignant neoplasm of breast

== ENCOUNTER → 2021-07-13 | Outpatient (REF) | payer OTHER ==
[~2021-07-13] MED LIST changes: +ACET32TAB PO; +CEFD300CAP PO; +PRED25TA PO; +PROAAER10 INH; +SIRO1TAB PO
[2021-07-13 14:20] LABS: CLOSTRIDIUM DIFFICILE PCR POSITIVE (NEGATIVE)
== END ==
LOC: M SFHCADAM 12:43
PROVIDERS: ATTEND Family Medicine
DX: K52.1 Toxic gastroenteritis and colitis (principal)

== ENCOUNTER → 2021-07-18 | Outpatient (CLI) | payer OTHER ==
[2021-07-18 10:34] LABS: BASO % 0.4 % (0.0-1.0); EOS % 1.4 % (0.0-3.0); HEMATOCRIT 41.4 % (36.0-47.0); HEMOGLOBIN 13.7 g/dl (12.0-15.5); LYMPH # 0.4 10^3/uL (1.5-5.0); LYMPH % 15.3 % (24.0-44.0); MEAN CORPUSCULAR HEMOGLOBIN 34.9 pg (27.0-33.0); MEAN CORPUSCULAR HGB CONC 33.1 g/dl (32.0-36.5); MEAN CORPUSCULAR VOLUME 105.3 fl (80.0-96.0); MONO # 0.6 10^3/uL (0.0-0.8); MONO % 21.4 % (2.0-8.0); NEUTROPHILS # 1.7 10^3/uL (1.5-8.5); NEUTROPHILS % 59.7 % (36.0-66.0); PLATELET COUNT, AUTOMATED 225 10^3/uL (150-450); RED BLOOD COUNT 3.93 10^6/uL (4.00-5.40); WHITE BLOOD COUNT 2.8 10^3/uL (4.0-10.0)
[2021-07-18 10:39] LABS: ALT/SGPT 28 U/L (12-78); BLOOD UREA NITROGEN 18 MG/DL (7-18); CALCIUM LEVEL 9.2 MG/DL (8.5-10.1); CARBON DIOXIDE LEVEL 31 MEQ/L (21-32); CHLORIDE LEVEL 107 MEQ/L (98-107); CREATININE FOR GFR 0.92 MG/DL (0.55-1.30); GLOMERULAR FILTRATION RATE > 60.0 (>51); GLUCOSE, FASTING 74 MG/DL (70-100); POTASSIUM SERUM 5.2 MEQ/L (3.5-5.1); SODIUM LEVEL 143 MEQ/L (136-145)
[2021-07-18 10:40] LABS: ALBUMIN 3.4 GM/DL (3.2-5.2); BILIRUBIN,TOTAL 0.4 MG/DL (0.2-1.0); MAGNESIUM LEVEL 1.9 MG/DL (1.8-2.4); TOTAL PROTEIN 6.4 GM/DL (6.4-8.2); TRIGLYCERIDES LEVEL 98 MG/DL (<150)
== END ==
LOC: M PLALAB 08:38
PROVIDERS: ATTEND Nurse Practitioner Acute Care
DX: E78.00 Pure hypercholesterolemia, unspecified (principal); Z94.1 Heart transplant status; D84.9 Immunodeficiency, unspecified; Z79.899 Other long term (current) drug therapy; Z91.89 Other specified personal risk factors, not elsewhere classified

== ENCOUNTER 2021-07-28 08:49 | Inpatient (IN) | payer OTHER ==
[2021-07-28] MEDS ORDERED: NS 1,000 ML IV ONE (09:20)
[2021-07-28] MEDS ORDERED: ACETAMINOPHEN 325 MG TAB PO ONE (09:20)
[2021-07-28] MEDS ORDERED: ALBUTEROL 90 MCG/ACT 8GM HFA INHALER INH ONE (09:25)
[2021-07-28 10:21] LABS: VENOUS BASE EXCESS 3.3 (-2.0-2.0); VENOUS HCO3 29.7 MEQ/L (23.0-27.0); VENOUS O2 SATURATION 81.9 % (60.0-80.0); VENOUS PARTIAL PRESSURE CO2 52.4 mmHg (38.0-50.0); VENOUS PARTIAL PRESSURE O2 46.4 mmHg (30.0-50.0); VENOUS PH 7.372 UNITS (7.330-7.430); VENOUS TOTAL CO2 31.4 MEQ/L (24.0-28.0)
[2021-07-28 10:30] LABS: BASO % 0.3 % (0.0-1.0); EOS # 0.1 10^3/uL (0.0-0.5); EOS % 2.1 % (0.0-3.0); HEMATOCRIT 40.8 % (36.0-47.0); LYMPH # 0.4 10^3/uL (1.5-5.0); LYMPH % 9.4 % (24.0-44.0); MEAN CORPUSCULAR HEMOGLOBIN 35.4 pg (27.0-33.0); MEAN CORPUSCULAR HGB CONC 34.3 g/dl (32.0-36.5); MONO # 0.5 10^3/uL (0.0-0.8); MONO % 11.7 % (2.0-8.0); NEUTROPHILS # 2.9 10^3/uL (1.5-8.5); NEUTROPHILS % 75.7 % (36.0-66.0); PLATELET COUNT, AUTOMATED 185 10^3/uL (150-450); RED BLOOD COUNT 3.96 10^6/uL (4.00-5.40); WHITE BLOOD COUNT 3.9 10^3/uL (4.0-10.0)
[2021-07-28 10:41] LABS: INR 0.94
[2021-07-28 10:42] LABS: PARTIAL THROMBOPLASTIN TIME 23.9 SECONDS (25.9-37.0)
[2021-07-28 10:59] LABS: CK-MB VALUE MASS < 1.0 NG/ML (<3.6); CPK CREATINE PHOSPHOKINASE 82 U/L (26-192); MB/CK RELATIVE INDEX 1.22 (< OR =4)
[2021-07-28 11:03] LABS: ALBUMIN 3.5 GM/DL (3.2-5.2); ALT/SGPT 27 U/L (12-78); BILIRUBIN,DIRECT 0.2 MG/DL (0.0-0.2); BILIRUBIN,TOTAL 0.5 MG/DL (0.2-1.0); C REACTIVE PROTEIN QUANTITATIV 0.45 MG/DL (0.00-0.30); FERRITIN 52 NG/ML (8-252); LDH LACTATE DEHYDROGENASE 258 U/L (84-246); LIPASE 53 U/L (73-393); MAGNESIUM LEVEL 1.7 MG/DL (1.8-2.4); NT-PRO BNP 120 PG/ML (<125); TOTAL PROTEIN 6.7 GM/DL (6.4-8.2)
[2021-07-28 11:39] LABS: BLOOD UREA NITROGEN 14 MG/DL (7-18); CALCIUM LEVEL 8.2 MG/DL (8.5-10.1); CARBON DIOXIDE LEVEL 30 MEQ/L (21-32); CHLORIDE LEVEL 106 MEQ/L (98-107); CREATININE FOR GFR 0.91 MG/DL (0.55-1.30); GLOMERULAR FILTRATION RATE > 60.0 (>51); GLUCOSE, FASTING 81 MG/DL (70-100); POTASSIUM SERUM 3.4 MEQ/L (3.5-5.1); SODIUM LEVEL 141 MEQ/L (136-145)
[2021-07-28] MEDS ORDERED: ISOVUE-370 76% 100ML VIAL As Ordered ONE (11:40)
[2021-07-28 11:41] LABS: ERYTHROCYTE SEDIMENTATION RATE 29 mm/hr (0-30)
[2021-07-28] MEDS ORDERED: HOME MED LIST COMPLETE! XX SCH (12:55)
[2021-07-28 13:14] LABS: RSV AMPLIFICATION NEGATIVE (NEGATIVE)
[2021-07-28] MEDS ORDERED: ALBUTEROL 90 MCG/ACT 8GM HFA INHALER INH PRN (14:10)
[2021-07-28] MEDS ORDERED: ACETAMINOPHEN TAB 650MG DOSE (2X325MG) PO PRN (14:10)
[2021-07-28 15:37] VITALS: BP 115/66
[2021-07-28] MEDS ORDERED: PROAAER10 INH (18:44)
[2021-07-28] MEDS ORDERED: REMDESIVIR 200 MG in NS 250 ML IV ONE (20:00)
[2021-07-28] MEDS ORDERED: ALPRAZolam 0.5 MG TAB PO SCH (21:00)
[2021-07-28] MEDS ORDERED: traZODone 100 MG TAB PO SCH (21:00)
[2021-07-28] MEDS ORDERED: MAGNESIUM OXIDE 400MG TAB (MAG-OX) PO SCH (21:00)
[2021-07-28] MEDS ORDERED: LOSARTAN 50MG TABLET PO SCH (21:00)
[2021-07-28] MEDS ORDERED: TACROLIMUS 1 MG CAP (J7507) PO SCH (21:00)
[2021-07-28] MEDS ORDERED: PRAVASTATIN 20 MG TAB PO SCH (21:00)
[2021-07-28] MEDS ORDERED: SODIUM CHLORIDE 0.9% INJ 10 ML SYR IV ONE (22:00)
[2021-07-29] MEDS ORDERED: METOPROLOL SUCC *XL* 12.5MG PER 1/2 TAB (TopROL *XL*) PO SCH (09:00)
[2021-07-29] MEDS ORDERED: SIROLIMUS 1 MG TAB (RAPAMUNE) PO SCH (09:00)
[2021-07-29] MEDS ORDERED: ASPIRIN 81MG ENTERIC TABLET PO SCH (09:00)
[2021-07-29] MEDS ORDERED: MULTIVITAMINS/MINERALS THERAP 1 TAB PO SCH (09:00)
[2021-07-29] MEDS ORDERED: ENTER DRUG NAME HERE (PATIENT'S OWN MED) PO SCH (09:00)
[2021-07-29] MEDS ORDERED: PANTOPRAZOLE 40MG TAB (PROTONIX) PO SCH (09:00)
[2021-07-29] MEDS ORDERED: VENLAFAXINE **XR** 75MG CAPSULE PO SCH (09:00)
[2021-07-29] MEDS ORDERED: predniSONE 2.5 MG TAB PO SCH (09:00)
[2021-07-29] MEDS ORDERED: FOLIC ACID 1 MG TAB PO SCH (09:00)
[2021-07-29] MEDS ORDERED: TORSEMIDE 10 MG TABLET PO SCH (09:00)
[2021-07-29] MEDS ORDERED: CYANOCOBALAMIN 500 MCG TAB PO SCH (09:00)
[2021-07-29] MEDS ORDERED: REMDESIVIR 100 MG in NS 250 ML IV SCH (18:00)
[2021-07-29] MEDS ORDERED: SODIUM CHLORIDE 0.9% INJ 10 ML SYR IV SCH (19:00)
[2021-08-03] MEDS ORDERED: METHOTREXATE 2.5 MG TAB (J8610 PER 2.5MG) PO SCH (09:00)
== END 2021-07-28 18:37 | disposition left against medical advice (07) | DRG 189 ==
LOC: M ED 08:49 → M ED INP 14:03 → ENRESERV 15:13
PROVIDERS: ADMIT Internal Medicine; ATTEND Internal Medicine
DX: J96.01 Acute respiratory failure with hypoxia (principal); Z94.1 Heart transplant status; D84.9 Immunodeficiency, unspecified; Z85.3 Personal history of malignant neoplasm of breast; Z92.21 Personal history of antineoplastic chemotherapy; Z90.11 Acquired absence of right breast and nipple; Z95.828 Presence of other vascular implants and grafts; Z98.84 Bariatric surgery status; G47.33 Obstructive sleep apnea (adult) (pediatric); I48.91 Unspecified atrial fibrillation; M06.9 Rheumatoid arthritis, unspecified; J44.9 Chronic obstructive pulmonary disease, unspecified; K21.9 Gastro-esophageal reflux disease without esophagitis; E83.42 Hypomagnesemia; E78.5 Hyperlipidemia, unspecified; E03.9 Hypothyroidism, unspecified; F41.9 Anxiety disorder, unspecified; Z90.79 Acquired absence of other genital organ(s); Z87.891 Personal history of nicotine dependence; Z20.822 Contact with and (suspected) exposure to COVID-19; Z79.82 Long term (current) use of aspirin; Z79.899 Other long term (current) drug therapy; Z88.1 Allergy status to other antibiotic agents; Z88.2 Allergy status to sulfonamides; Z88.5 Allergy status to narcotic agent; Z88.6 Allergy status to analgesic agent; Z79.52 Long term (current) use of systemic steroids; Z88.8 Allergy status to other drugs, medicaments and biological substances

== ENCOUNTER → 2021-08-16 | Outpatient (CLI) | payer OTHER ==
[2021-08-16 10:53] LABS: BASO % 0.7 % (0.0-1.0); EOS # 0.1 10^3/uL (0.0-0.5); EOS % 1.8 % (0.0-3.0); HEMATOCRIT 41.4 % (36.0-47.0); HEMOGLOBIN 14.1 g/dl (12.0-15.5); LYMPH # 0.7 10^3/uL (1.5-5.0); LYMPH % 24.4 % (24.0-44.0); MEAN CORPUSCULAR HGB CONC 34.1 g/dl (32.0-36.5); MEAN CORPUSCULAR VOLUME 102.7 fl (80.0-96.0); MONO # 0.4 10^3/uL (0.0-0.8); MONO % 15.6 % (2.0-8.0); NEUTROPHILS # 1.6 10^3/uL (1.5-8.5); NEUTROPHILS % 56.8 % (36.0-66.0); PLATELET COUNT, AUTOMATED 215 10^3/uL (150-450); RED BLOOD COUNT 4.03 10^6/uL (4.00-5.40); WHITE BLOOD COUNT 2.8 10^3/uL (4.0-10.0)
[2021-08-16 11:29] LABS: ALBUMIN 3.4 GM/DL (3.2-5.2); ALT/SGPT 42 U/L (12-78); BILIRUBIN,TOTAL 0.5 MG/DL (0.2-1.0); BLOOD UREA NITROGEN 17 MG/DL (7-18); CARBON DIOXIDE LEVEL 34 MEQ/L (21-32); CHLORIDE LEVEL 106 MEQ/L (98-107); CREATININE FOR GFR 0.89 MG/DL (0.55-1.30); GLOMERULAR FILTRATION RATE > 60.0 (>51); GLUCOSE, FASTING 73 MG/DL (70-100); MAGNESIUM LEVEL 1.5 MG/DL (1.8-2.4); POTASSIUM SERUM 4.2 MEQ/L (3.5-5.1); SODIUM LEVEL 143 MEQ/L (136-145); TOTAL PROTEIN 6.5 GM/DL (6.4-8.2); TRIGLYCERIDES LEVEL 65 MG/DL (<150)
[2021-08-20 17:07] LABS: SIROLIMUS (RAPAMUNE) LABCORP 2.9 ng/mL (3.0-20.0)
== END ==
LOC: M PLALAB 08:00
PROVIDERS: ATTEND Nurse Practitioner Acute Care
DX: D84.9 Immunodeficiency, unspecified (principal); E78.00 Pure hypercholesterolemia, unspecified; Z94.1 Heart transplant status; Z79.899 Other long term (current) drug therapy; Z91.89 Other specified personal risk factors, not elsewhere classified

== ENCOUNTER → 2021-08-28 | Outpatient (REF) | payer OTHER | LOC: M SFHCADAM 16:04 | PROVIDERS: ATTEND Family Medicine | DX: J06.9 Acute upper respiratory infection, unspecified (principal) | CPT/HCPCS: 87426; G0463 ==

== ENCOUNTER → 2021-09-13 | Outpatient (CLI) | payer OTHER | LOC: M ONCR 13:44 | PROVIDERS: ATTEND General Practice | DX: C50.111 Malignant neoplasm of central portion of right female breast (principal); I89.0 Lymphedema, not elsewhere classified; Z79.51 Long term (current) use of inhaled steroids; Z79.52 Long term (current) use of systemic steroids; Z79.82 Long term (current) use of aspirin; Z79.899 Other long term (current) drug therapy; Z79.811 Long term (current) use of aromatase inhibitors; Z86.19 Personal history of other infectious and parasitic diseases; Z87.891 Personal history of nicotine dependence; Z88.1 Allergy status to other antibiotic agents; Z88.2 Allergy status to sulfonamides; Z88.5 Allergy status to narcotic agent; Z88.6 Allergy status to analgesic agent; Z88.8 Allergy status to other drugs, medicaments and biological substances; Z90.11 Acquired absence of right breast and nipple; Z92.21 Personal history of antineoplastic chemotherapy; Z92.25 Personal history of immunosuppression therapy; Z92.3 Personal history of irradiation; Z86.16 Personal history of COVID-19; Z95.1 Presence of aortocoronary bypass graft ==

== ENCOUNTER → 2021-09-26 | Outpatient (CLI) | payer OTHER ==
[2021-09-26 10:30] LABS: BASO % 0.5 % (0.0-1.0); EOS % 0.5 % (0.0-3.0); HEMATOCRIT 43.7 % (36.0-47.0); HEMOGLOBIN 14.6 g/dl (12.0-15.5); LYMPH # 0.3 10^3/uL (1.5-5.0); LYMPH % 12.2 % (24.0-44.0); MEAN CORPUSCULAR HEMOGLOBIN 34.1 pg (27.0-33.0); MEAN CORPUSCULAR HGB CONC 33.4 g/dl (32.0-36.5); MEAN CORPUSCULAR VOLUME 102.1 fl (80.0-96.0); MONO # 0.4 10^3/uL (0.0-0.8); MONO % 18.9 % (2.0-8.0); NEUTROPHILS # 1.5 10^3/uL (1.5-8.5); PLATELET COUNT, AUTOMATED 162 10^3/uL (150-450); RED BLOOD COUNT 4.28 10^6/uL (4.00-5.40); WHITE BLOOD COUNT 2.2 10^3/uL (4.0-10.0)
[2021-09-26 11:07] LABS: ALBUMIN 3.4 GM/DL (3.2-5.2); ALT/SGPT 20 U/L (12-78); BILIRUBIN,TOTAL 0.5 MG/DL (0.2-1.0); BLOOD UREA NITROGEN 13 MG/DL (7-18); CALCIUM LEVEL 9.2 MG/DL (8.5-10.1); CARBON DIOXIDE LEVEL 33 MEQ/L (21-32); CHLORIDE LEVEL 107 MEQ/L (98-107); CREATININE FOR GFR 0.88 MG/DL (0.55-1.30); GLOMERULAR FILTRATION RATE > 60.0 (>51); GLUCOSE, FASTING 109 MG/DL (70-100); MAGNESIUM LEVEL 1.8 MG/DL (1.8-2.4); POTASSIUM SERUM 3.9 MEQ/L (3.5-5.1); SODIUM LEVEL 144 MEQ/L (136-145); TOTAL PROTEIN 6.8 GM/DL (6.4-8.2); TRIGLYCERIDES LEVEL 85 MG/DL (<150)
== END ==
LOC: M PLALAB 08:40
PROVIDERS: ATTEND Nurse Practitioner Acute Care
DX: D84.9 Immunodeficiency, unspecified (principal); E78.00 Pure hypercholesterolemia, unspecified; M05.79 Rheumatoid arthritis with rheumatoid factor of multiple sites without organ or systems involvement; M89.49 Other hypertrophic osteoarthropathy, multiple sites; Z94.1 Heart transplant status; Z91.89 Other specified personal risk factors, not elsewhere classified; Z79.52 Long term (current) use of systemic steroids; Z79.899 Other long term (current) drug therapy

== ENCOUNTER → 2021-09-26 | Outpatient (CLI) | payer OTHER ==
[2021-09-26 10:29] LABS: EOS % 0.5 % (0.0-3.0); HEMATOCRIT 44.1 % (36.0-47.0); HEMOGLOBIN 14.6 g/dl (12.0-15.5); LYMPH # 0.3 10^3/uL (1.5-5.0); LYMPH % 13.6 % (24.0-44.0); MEAN CORPUSCULAR HEMOGLOBIN 33.8 pg (27.0-33.0); MEAN CORPUSCULAR HGB CONC 33.1 g/dl (32.0-36.5); MEAN CORPUSCULAR VOLUME 102.1 fl (80.0-96.0); MONO # 0.4 10^3/uL (0.0-0.8); MONO % 16.8 % (2.0-8.0); NEUTROPHILS # 1.5 10^3/uL (1.5-8.5); NEUTROPHILS % 67.3 % (36.0-66.0); PLATELET COUNT, AUTOMATED 162 10^3/uL (150-450); RED BLOOD COUNT 4.32 10^6/uL (4.00-5.40); WHITE BLOOD COUNT 2.2 10^3/uL (4.0-10.0)
[2021-09-26 10:52] LABS: ERYTHROCYTE SEDIMENTATION RATE 25 mm/hr (0-30)
[2021-09-26 11:07] LABS: ALBUMIN 3.4 GM/DL (3.2-5.2); ALT/SGPT 20 U/L (12-78); BILIRUBIN,TOTAL 0.4 MG/DL (0.2-1.0); BLOOD UREA NITROGEN 14 MG/DL (7-18); CALCIUM LEVEL 8.9 MG/DL (8.5-10.1); CARBON DIOXIDE LEVEL 33 MEQ/L (21-32); CHLORIDE LEVEL 107 MEQ/L (98-107); CREATININE FOR GFR 0.88 MG/DL (0.55-1.30); GLOMERULAR FILTRATION RATE > 60.0 (>51); GLUCOSE, FASTING 108 MG/DL (70-100); SODIUM LEVEL 145 MEQ/L (136-145); TOTAL PROTEIN 6.7 GM/DL (6.4-8.2)
== END ==
LOC: M PLALAB 08:35
PROVIDERS: ATTEND Internal Medicine Rheumatology
DX: M05.79 Rheumatoid arthritis with rheumatoid factor of multiple sites without organ or systems involvement (principal); M89.49 Other hypertrophic osteoarthropathy, multiple sites; D72.819 Decreased white blood cell count, unspecified; Z79.52 Long term (current) use of systemic steroids; Z79.899 Other long term (current) drug therapy

== ENCOUNTER 2021-11-01 03:15 | Emergency (ER) | payer OTHER ==
[~2021-11-01] VITALS: Ht 170.2 cm; Wt 91.1 kg
[2021-11-01 03:16] VITALS: BP 132/78
== END 2021-11-01 04:01 | disposition left against medical advice (07) ==
LOC: M ED 03:15
DX: Z53.29 Procedure and treatment not carried out because of patient's decision for other reasons (principal)

== ENCOUNTER → 2021-12-11 | Outpatient (CLI) | payer OTHER ==
[~2021-12-11] MED LIST changes: +LEVO1TAB39 PO; -LEVO500T4 PO
[2021-12-11 11:11] LABS: BASO % 0.3 % (0.0-1.0); HEMATOCRIT 45.6 % (36.0-47.0); HEMOGLOBIN 14.9 g/dl (12.0-15.5); LYMPH # 0.4 10^3/uL (1.5-5.0); LYMPH % 12.9 % (24.0-44.0); MEAN CORPUSCULAR HEMOGLOBIN 33.7 pg (27.0-33.0); MEAN CORPUSCULAR HGB CONC 32.7 g/dl (32.0-36.5); MEAN CORPUSCULAR VOLUME 103.2 fl (80.0-96.0); MONO # 0.6 10^3/uL (0.0-0.8); MONO % 18.7 % (2.0-8.0); NEUTROPHILS # 2.1 10^3/uL (1.5-8.5); NEUTROPHILS % 66.8 % (36.0-66.0); PLATELET COUNT, AUTOMATED 162 10^3/uL (150-450); RED BLOOD COUNT 4.42 10^6/uL (4.00-5.40); WHITE BLOOD COUNT 3.1 10^3/uL (4.0-10.0)
[2021-12-11 12:21] LABS: ERYTHROCYTE SEDIMENTATION RATE 24 mm/hr (0-30)
[2021-12-11 12:27] LABS: ALBUMIN 3.4 GM/DL (3.2-5.2); ALT/SGPT 23 U/L (12-78); BILIRUBIN,TOTAL 0.4 MG/DL (0.2-1.0); BLOOD UREA NITROGEN 12 MG/DL (7-18); CALCIUM LEVEL 8.6 MG/DL (8.5-10.1); CARBON DIOXIDE LEVEL 30 MEQ/L (21-32); CHLORIDE LEVEL 106 MEQ/L (98-107); CREATININE FOR GFR 0.84 MG/DL (0.55-1.30); GLOMERULAR FILTRATION RATE > 60.0 (>51); GLUCOSE, FASTING 90 MG/DL (70-100); POTASSIUM SERUM 4.4 MEQ/L (3.5-5.1); SODIUM LEVEL 139 MEQ/L (136-145); TOTAL PROTEIN 6.6 GM/DL (6.4-8.2)
== END ==
LOC: M PLALAB 07:53
PROVIDERS: ATTEND Internal Medicine Rheumatology
DX: M05.79 Rheumatoid arthritis with rheumatoid factor of multiple sites without organ or systems involvement (principal); Z79.52 Long term (current) use of systemic steroids; Z79.899 Other long term (current) drug therapy; M89.49 Other hypertrophic osteoarthropathy, multiple sites; D72.819 Decreased white blood cell count, unspecified

== ENCOUNTER → 2022-01-02 | Outpatient (CLI) | payer MEDICARE, OTHER | LOC: M RAD 08:05 | PROVIDERS: ATTEND Physician Assistant | DX: J32.8 Other chronic sinusitis (principal) ==

== ENCOUNTER → 2022-01-09 | Outpatient (CLI) | payer OTHER ==
[2022-01-09 13:13] LABS: THYROID STIMULATING HORMONE 2.08 uIU/ML (0.358-3.740)
[2022-01-09 14:19] LABS: TOTAL 25(OH) VITAMIN D 65.2 NG/ML (30.0-100.0)
[2022-01-15 17:07] LABS: VITAMIN B1 LEVEL WHOLE BLOOD 151.5 nmol/L (66.5-200.0); VITAMIN B6,PYRIDOXAL PHOSPHATE 7.8 ug/L (3.4-65.2); VITAMIN E(ALPHA TOCOPHEROL) 11.2 mg/L (7.0-25.1); VITAMIN E(GAMMA TOCOPHEROL) 1.7 mg/L (0.5-5.5)
== END ==
LOC: M PLALAB 07:51
PROVIDERS: ATTEND Psychiatry & Neurology Neurology
DX: R53.1 Weakness (principal); E53.8 Deficiency of other specified B group vitamins; E55.9 Vitamin D deficiency, unspecified; E51.9 Thiamine deficiency, unspecified; D84.9 Immunodeficiency, unspecified; Z94.1 Heart transplant status; Z79.899 Other long term (current) drug therapy

== ENCOUNTER → 2022-01-09 | Outpatient (CLI) | payer OTHER ==
[2022-01-09 12:30] LABS: BASO % 0.4 % (0.0-1.0); EOS % 1.2 % (0.0-3.0); HEMATOCRIT 42.9 % (36.0-47.0); HEMOGLOBIN 14.3 g/dl (12.0-15.5); LYMPH # 0.4 10^3/uL (1.5-5.0); LYMPH % 13.7 % (24.0-44.0); MEAN CORPUSCULAR HEMOGLOBIN 34.5 pg (27.0-33.0); MEAN CORPUSCULAR HGB CONC 33.3 g/dl (32.0-36.5); MEAN CORPUSCULAR VOLUME 103.6 fl (80.0-96.0); MONO # 0.4 10^3/uL (0.0-0.8); MONO % 17.3 % (2.0-8.0); NEUTROPHILS # 1.7 10^3/uL (1.5-8.5); PLATELET COUNT, AUTOMATED 181 10^3/uL (150-450); RED BLOOD COUNT 4.14 10^6/uL (4.00-5.40); WHITE BLOOD COUNT 2.6 10^3/uL (4.0-10.0)
[2022-01-09 13:11] LABS: ALBUMIN 3.4 GM/DL (3.2-5.2); ALT/SGPT 22 U/L (12-78); BILIRUBIN,TOTAL 0.4 MG/DL (0.2-1.0); BLOOD UREA NITROGEN 10 MG/DL (7-18); CALCIUM LEVEL 8.6 MG/DL (8.5-10.1); CARBON DIOXIDE LEVEL 31 MEQ/L (21-32); CHLORIDE LEVEL 105 MEQ/L (98-107); CREATININE FOR GFR 0.81 MG/DL (0.55-1.30); GLOMERULAR FILTRATION RATE > 60.0 (>51); GLUCOSE, FASTING 80 MG/DL (70-100); MAGNESIUM LEVEL 1.8 MG/DL (1.8-2.4); POTASSIUM SERUM 3.9 MEQ/L (3.5-5.1); SODIUM LEVEL 140 MEQ/L (136-145); TOTAL PROTEIN 6.8 GM/DL (6.4-8.2)
== END ==
LOC: M PLALAB 07:48
PROVIDERS: ATTEND Nurse Practitioner Acute Care
DX: E83.42 Hypomagnesemia (principal); D84.9 Immunodeficiency, unspecified; Z94.1 Heart transplant status; Z79.899 Other long term (current) drug therapy

== ENCOUNTER → 2022-03-06 | Outpatient (CLI) | payer OTHER, MEDICARE ==
[~2022-03-06] MED LIST changes: +BENZ1LOZ2 PO; -DOXY-350 PO; +DOXY-444 PO; -SORE15LO PO
[2022-03-06 11:51] LABS: BASO % 0.3 % (0.0-1.0); EOS % 0.9 % (0.0-3.0); HEMATOCRIT 42.3 % (36.0-47.0); HEMOGLOBIN 14.2 g/dl (12.0-15.5); LYMPH # 0.5 10^3/uL (1.5-5.0); LYMPH % 14.4 % (24.0-44.0); MEAN CORPUSCULAR HEMOGLOBIN 35.1 pg (27.0-33.0); MEAN CORPUSCULAR HGB CONC 33.6 g/dl (32.0-36.5); MEAN CORPUSCULAR VOLUME 104.7 fl (80.0-96.0); MONO # 0.5 10^3/uL (0.0-0.8); MONO % 14.1 % (2.0-8.0); NEUTROPHILS # 2.4 10^3/uL (1.5-8.5); NEUTROPHILS % 69.4 % (36.0-66.0); PLATELET COUNT, AUTOMATED 182 10^3/uL (150-450); RED BLOOD COUNT 4.04 10^6/uL (4.00-5.40); WHITE BLOOD COUNT 3.4 10^3/uL (4.0-10.0)
[2022-03-06 15:02] LABS: ALBUMIN 3.2 GM/DL (3.2-5.2); ALT/SGPT 27 U/L (12-78); BILIRUBIN,TOTAL 0.3 MG/DL (0.2-1.0); BLOOD UREA NITROGEN 13 MG/DL (7-18); CALCIUM LEVEL 8.7 MG/DL (8.5-10.1); CARBON DIOXIDE LEVEL 30 MEQ/L (21-32); CHLORIDE LEVEL 106 MEQ/L (98-107); CREATININE FOR GFR 0.82 MG/DL (0.55-1.30); GLOMERULAR FILTRATION RATE > 60.0 (>51); GLUCOSE, FASTING 90 MG/DL (70-100); MAGNESIUM LEVEL 1.8 MG/DL (1.8-2.4); POTASSIUM SERUM 3.7 MEQ/L (3.5-5.1); SODIUM LEVEL 141 MEQ/L (136-145); TOTAL PROTEIN 6.6 GM/DL (6.4-8.2)
== END ==
LOC: M PLALAB 08:26
PROVIDERS: ATTEND Nurse Practitioner Acute Care
DX: E83.42 Hypomagnesemia (principal); D84.9 Immunodeficiency, unspecified; Z94.1 Heart transplant status; Z79.899 Other long term (current) drug therapy

== ENCOUNTER → 2022-05-01 | Outpatient (CLI) | payer MEDICARE, OTHER | LOC: M WHC 08:52 | PROVIDERS: ATTEND Surgery | DX: Z12.31 Encounter for screening mammogram for malignant neoplasm of breast (principal); Z85.3 Personal history of malignant neoplasm of breast; Z90.11 Acquired absence of right breast and nipple | CPT/HCPCS: 77065; G0279 ==

== ENCOUNTER → 2022-05-04 | Outpatient (CLI) | payer OTHER ==
[2022-05-04 14:14] LABS: BASO % 0.3 % (0.0-1.0); EOS % 0.7 % (0.0-3.0); HEMATOCRIT 44.4 % (36.0-47.0); HEMOGLOBIN 14.6 g/dl (12.0-15.5); LYMPH # 0.4 10^3/uL (1.5-5.0); LYMPH % 12.9 % (24.0-44.0); MEAN CORPUSCULAR HGB CONC 32.9 g/dl (32.0-36.5); MEAN CORPUSCULAR VOLUME 103.3 fl (80.0-96.0); MONO # 0.4 10^3/uL (0.0-0.8); MONO % 14.2 % (2.0-8.0); NEUTROPHILS # 2.1 10^3/uL (1.5-8.5); NEUTROPHILS % 71.6 % (36.0-66.0); PLATELET COUNT, AUTOMATED 176 10^3/uL (150-450)
[2022-05-04 14:42] LABS: MAGNESIUM LEVEL 1.6 MG/DL (1.8-2.4)
[2022-05-04 14:45] LABS: ALBUMIN 3.6 G/DL (3.2-5.2); ALKALINE PHOSPHATASE 93 U/L (46-116); ALT/SGPT 19 U/L (7.0-40); AST/SGOT 31 U/L (<34); BILIRUBIN,TOTAL 0.6 MG/DL (0.3-1.2); BLOOD UREA NITROGEN 17 MG/DL (9-23); CALCIUM LEVEL 8.6 MG/DL (8.5-10.1); CARBON DIOXIDE LEVEL 31 MMOL/L (20-31); CHLORIDE LEVEL 102 MMOL/L (98-107); CREATININE FOR GFR 0.85 MG/DL (0.55-1.30); GLOMERULAR FILTRATION RATE > 60.0 (>51); GLUCOSE, FASTING 74 MG/DL (60-100); POTASSIUM SERUM 3.9 MMOL/L (3.5-5.1); SODIUM LEVEL 140 MMOL/L (136-145); TOTAL PROTEIN 6.7 G/DL (5.7-8.2)
[2022-05-08 19:07] LABS: SIROLIMUS (RAPAMUNE) LABCORP 2.8 ng/mL (3.0-20.0)
== END ==
LOC: M PLALAB 09:06
PROVIDERS: ATTEND Nurse Practitioner Acute Care
DX: E83.42 Hypomagnesemia (principal); D84.9 Immunodeficiency, unspecified; Z94.1 Heart transplant status; Z79.899 Other long term (current) drug therapy

== ENCOUNTER → 2022-05-04 | Outpatient (CLI) | payer OTHER ==
[2022-05-04 14:15] LABS: EOS % 0.7 % (0.0-3.0); HEMATOCRIT 44.1 % (36.0-47.0); HEMOGLOBIN 14.8 g/dl (12.0-15.5); LYMPH # 0.4 10^3/uL (1.5-5.0); LYMPH % 13.4 % (24.0-44.0); MEAN CORPUSCULAR HEMOGLOBIN 34.5 pg (27.0-33.0); MEAN CORPUSCULAR HGB CONC 33.6 g/dl (32.0-36.5); MEAN CORPUSCULAR VOLUME 102.8 fl (80.0-96.0); MONO # 0.4 10^3/uL (0.0-0.8); MONO % 12.7 % (2.0-8.0); NEUTROPHILS # 2.1 10^3/uL (1.5-8.5); NEUTROPHILS % 72.9 % (36.0-66.0); PLATELET COUNT, AUTOMATED 172 10^3/uL (150-450); RED BLOOD COUNT 4.29 10^6/uL (4.00-5.40); WHITE BLOOD COUNT 2.9 10^3/uL (4.0-10.0)
[2022-05-04 14:20] LABS: ERYTHROCYTE SEDIMENTATION RATE 22 mm/hr (0-30)
[2022-05-04 15:53] LABS: C REACTIVE PROTEIN QUANTITATIV < 0.40 MG/DL (<1.0)
[2022-05-04 16:03] LABS: ALBUMIN 3.5 G/DL (3.2-5.2); ALKALINE PHOSPHATASE 93 U/L (46-116); ALT/SGPT 23 U/L (7.0-40); AST/SGOT 29 U/L (<34); BILIRUBIN,TOTAL 0.5 MG/DL (0.3-1.2); BLOOD UREA NITROGEN 17 MG/DL (9-23); CALCIUM LEVEL 8.5 MG/DL (8.5-10.1); CARBON DIOXIDE LEVEL 27 MMOL/L (20-31); CHLORIDE LEVEL 102 MMOL/L (98-107); CREATININE FOR GFR 0.83 MG/DL (0.55-1.30); GLOMERULAR FILTRATION RATE > 60.0 (>51); GLUCOSE, FASTING 73 MG/DL (60-100); POTASSIUM SERUM 4.1 MMOL/L (3.5-5.1); SODIUM LEVEL 141 MMOL/L (136-145); TOTAL PROTEIN 6.4 G/DL (5.7-8.2)
== END ==
LOC: M PLALAB 09:02
PROVIDERS: ATTEND Internal Medicine Rheumatology
DX: M05.79 Rheumatoid arthritis with rheumatoid factor of multiple sites without organ or systems involvement (principal); M89.49 Other hypertrophic osteoarthropathy, multiple sites; D72.819 Decreased white blood cell count, unspecified; Z79.52 Long term (current) use of systemic steroids; Z79.899 Other long term (current) drug therapy

== ENCOUNTER → 2022-05-18 | Outpatient (REF) | payer OTHER ==
[2022-05-18 17:09] LABS: BASO % 0.3 % (0.0-1.0); EOS % 1.1 % (0.0-3.0); HEMATOCRIT 44.3 % (36.0-47.0); HEMOGLOBIN 14.5 g/dl (12.0-15.5); LYMPH # 0.5 10^3/uL (1.5-5.0); LYMPH % 15.2 % (24.0-44.0); MEAN CORPUSCULAR HGB CONC 32.7 g/dl (32.0-36.5); MEAN CORPUSCULAR VOLUME 103.7 fl (80.0-96.0); MONO # 0.4 10^3/uL (0.0-0.8); MONO % 12.6 % (2.0-8.0); NEUTROPHILS # 2.5 10^3/uL (1.5-8.5); NEUTROPHILS % 70.5 % (36.0-66.0); PLATELET COUNT, AUTOMATED 223 10^3/uL (150-450); RED BLOOD COUNT 4.27 10^6/uL (4.00-5.40); WHITE BLOOD COUNT 3.5 10^3/uL (4.0-10.0)
[2022-05-18 17:23] LABS: ALBUMIN 3.4 G/DL (3.2-5.2); ALKALINE PHOSPHATASE 99 U/L (46-116); ALT/SGPT 23 U/L (7.0-40); AST/SGOT 28 U/L (<34); BILIRUBIN,TOTAL 0.6 MG/DL (0.3-1.2); BLOOD UREA NITROGEN 15 MG/DL (9-23); CARBON DIOXIDE LEVEL 30 MMOL/L (20-31); CHLORIDE LEVEL 106 MMOL/L (98-107); CREATININE FOR GFR 0.86 MG/DL (0.55-1.30); GLOMERULAR FILTRATION RATE > 60.0 (>51); GLUCOSE, FASTING 85 MG/DL (60-100); POTASSIUM SERUM 4.2 MMOL/L (3.5-5.1); SODIUM LEVEL 142 MMOL/L (136-145); TOTAL PROTEIN 6.8 G/DL (5.7-8.2)
[2022-05-18 17:49] LABS: ERYTHROCYTE SEDIMENTATION RATE 45 mm/hr (0-30)
== END ==
LOC: M SFHCRHEU 13:55
PROVIDERS: ATTEND Internal Medicine Rheumatology
DX: M05.79 Rheumatoid arthritis with rheumatoid factor of multiple sites without organ or systems involvement (principal); M89.49 Other hypertrophic osteoarthropathy, multiple sites; D72.819 Decreased white blood cell count, unspecified; J39.9 Disease of upper respiratory tract, unspecified; Z79.52 Long term (current) use of systemic steroids; Z79.899 Other long term (current) drug therapy

== ENCOUNTER → 2022-07-10 | Outpatient (CLI) | payer OTHER ==
[2022-07-10 10:49] LABS: BASO % 0.3 % (0.0-1.0); EOS # 0.1 10^3/uL (0.0-0.5); EOS % 1.3 % (0.0-3.0); HEMATOCRIT 43.2 % (36.0-47.0); HEMOGLOBIN 14.1 g/dl (12.0-15.5); LYMPH # 0.5 10^3/uL (1.5-5.0); LYMPH % 14.1 % (24.0-44.0); MEAN CORPUSCULAR HEMOGLOBIN 33.8 pg (27.0-33.0); MEAN CORPUSCULAR HGB CONC 32.6 g/dl (32.0-36.5); MEAN CORPUSCULAR VOLUME 103.6 fl (80.0-96.0); MONO # 0.4 10^3/uL (0.0-0.8); MONO % 11.7 % (2.0-8.0); NEUTROPHILS # 2.7 10^3/uL (1.5-8.5); NEUTROPHILS % 72.3 % (36.0-66.0); PLATELET COUNT, AUTOMATED 193 10^3/uL (150-450); RED BLOOD COUNT 4.17 10^6/uL (4.00-5.40); WHITE BLOOD COUNT 3.8 10^3/uL (4.0-10.0)
[2022-07-10 11:06] LABS: ERYTHROCYTE SEDIMENTATION RATE 29 mm/hr (0-30)
[2022-07-10 11:13] LABS: C REACTIVE PROTEIN QUANTITATIV < 0.40 MG/DL (<1.0)
[2022-07-10 12:35] LABS: ALBUMIN 3.3 G/DL (3.2-5.2); ALKALINE PHOSPHATASE 92 U/L (46-116); ALT/SGPT 20 U/L (7.0-40); AST/SGOT 24 U/L (<34); BILIRUBIN,TOTAL 0.7 MG/DL (0.3-1.2); BLOOD UREA NITROGEN 14 MG/DL (9-23); CALCIUM LEVEL 8.6 MG/DL (8.5-10.1); CARBON DIOXIDE LEVEL 32 MMOL/L (20-31); CHLORIDE LEVEL 103 MMOL/L (98-107); CREATININE FOR GFR 0.85 MG/DL (0.55-1.30); GLOMERULAR FILTRATION RATE > 60.0 (>51); GLUCOSE, FASTING 81 MG/DL (60-100); POTASSIUM SERUM 4.7 MMOL/L (3.5-5.1); SODIUM LEVEL 141 MMOL/L (136-145); TOTAL PROTEIN 6.2 G/DL (5.7-8.2)
== END ==
LOC: M PLALAB 08:59
PROVIDERS: ATTEND Internal Medicine Rheumatology
DX: M05.79 Rheumatoid arthritis with rheumatoid factor of multiple sites without organ or systems involvement (principal); M89.49 Other hypertrophic osteoarthropathy, multiple sites; D72.819 Decreased white blood cell count, unspecified; Z79.52 Long term (current) use of systemic steroids; Z79.899 Other long term (current) drug therapy

== ENCOUNTER → 2022-07-10 | Outpatient (CLI) | payer OTHER ==
[2022-07-10 10:48] LABS: BASO % 0.3 % (0.0-1.0); EOS # 0.1 10^3/uL (0.0-0.5); EOS % 1.6 % (0.0-3.0); HEMATOCRIT 42.9 % (36.0-47.0); HEMOGLOBIN 14.4 g/dl (12.0-15.5); LYMPH # 0.5 10^3/uL (1.5-5.0); LYMPH % 13.4 % (24.0-44.0); MEAN CORPUSCULAR HEMOGLOBIN 34.6 pg (27.0-33.0); MEAN CORPUSCULAR HGB CONC 33.6 g/dl (32.0-36.5); MEAN CORPUSCULAR VOLUME 103.1 fl (80.0-96.0); MONO # 0.4 10^3/uL (0.0-0.8); MONO % 11.1 % (2.0-8.0); NEUTROPHILS # 2.8 10^3/uL (1.5-8.5); NEUTROPHILS % 73.3 % (36.0-66.0); PLATELET COUNT, AUTOMATED 203 10^3/uL (150-450); RED BLOOD COUNT 4.16 10^6/uL (4.00-5.40); WHITE BLOOD COUNT 3.8 10^3/uL (4.0-10.0)
[2022-07-10 11:30] LABS: ALBUMIN 3.3 G/DL (3.2-5.2); ALKALINE PHOSPHATASE 93 U/L (46-116); ALT/SGPT 21 U/L (7.0-40); AST/SGOT 25 U/L (<34); BILIRUBIN,TOTAL 0.7 MG/DL (0.3-1.2); BLOOD UREA NITROGEN 14 MG/DL (9-23); CALCIUM LEVEL 8.6 MG/DL (8.5-10.1); CARBON DIOXIDE LEVEL 31 MMOL/L (20-31); CHLORIDE LEVEL 103 MMOL/L (98-107); CREATININE FOR GFR 0.83 MG/DL (0.55-1.30); GLOMERULAR FILTRATION RATE > 60.0 (>51); GLUCOSE, FASTING 81 MG/DL (60-100); MAGNESIUM LEVEL 1.7 MG/DL (1.8-2.4); SODIUM LEVEL 141 MMOL/L (136-145)
[2022-07-10 12:45] LABS: TOTAL PROTEIN 6.3 G/DL (5.7-8.2); TRIGLYCERIDES LEVEL 123 MG/DL (<150)
== END ==
LOC: M PLALAB 09:02
PROVIDERS: ATTEND Nurse Practitioner Acute Care
DX: M05.79 Rheumatoid arthritis with rheumatoid factor of multiple sites without organ or systems involvement (principal); M89.49 Other hypertrophic osteoarthropathy, multiple sites; D84.9 Immunodeficiency, unspecified; Z94.1 Heart transplant status; Z79.52 Long term (current) use of systemic steroids; Z79.899 Other long term (current) drug therapy

== ENCOUNTER → 2022-09-05 | Outpatient (CLI) | payer OTHER ==
[~2022-09-05] MED LIST changes: +FLUT50SP17 NARES; -FLUTISP NARES; +GASTROGRAFIN SOLUTION 30ML As Ordered ONE; +ISOVUE-370 76% 100ML VIAL As Ordered ONE
== END ==
LOC: M RAD 12:08
PROVIDERS: ATTEND Internal Medicine Hematology & Oncology
DX: C50.111 Malignant neoplasm of central portion of right female breast (principal); Z17.0 Estrogen receptor positive status [ER+]
CPT/HCPCS: 74177; Q9963; Q9967

== ENCOUNTER → 2022-09-11 | Outpatient (CLI) | payer OTHER ==
[~2022-09-11] MED LIST changes: -GASTROGRAFIN SOLUTION 30ML As Ordered ONE; -ISOVUE-370 76% 100ML VIAL As Ordered ONE
== END ==
LOC: M RAD 07:45
PROVIDERS: ATTEND Internal Medicine Rheumatology
DX: M15.4 Erosive (osteo)arthritis (principal); R60.9 Edema, unspecified

== ENCOUNTER → 2022-09-12 | Outpatient (CLI) | payer OTHER | LOC: M PLAIMG 07:13 | PROVIDERS: ATTEND Internal Medicine Rheumatology | DX: M25.432 Effusion, left wrist (principal); M94.232 Chondromalacia, left wrist; M94.231 Chondromalacia, right wrist; M05.79 Rheumatoid arthritis with rheumatoid factor of multiple sites without organ or systems involvement; M89.49 Other hypertrophic osteoarthropathy, multiple sites; D72.819 Decreased white blood cell count, unspecified; Z79.52 Long term (current) use of systemic steroids; Z79.899 Other long term (current) drug therapy ==

== ENCOUNTER → 2022-09-13 | Outpatient (REF) | payer OTHER | LOC: M SFHCRHEU 13:05 | PROVIDERS: ATTEND Internal Medicine Rheumatology | DX: M05.79 Rheumatoid arthritis with rheumatoid factor of multiple sites without organ or systems involvement (principal); M89.49 Other hypertrophic osteoarthropathy, multiple sites; D72.819 Decreased white blood cell count, unspecified; Z79.52 Long term (current) use of systemic steroids; Z79.899 Other long term (current) drug therapy ==

== ENCOUNTER → 2022-09-27 | Outpatient (CLI) | payer OTHER ==
[2022-09-27 11:17] LABS: BASO % 0.4 % (0.0-1.0); EOS # 0.1 10^3/uL (0.0-0.5); EOS % 4.6 % (0.0-3.0); HEMATOCRIT 41.6 % (36.0-47.0); LYMPH # 0.6 10^3/uL (1.5-5.0); LYMPH % 20.8 % (24.0-44.0); MEAN CORPUSCULAR HEMOGLOBIN 35.2 pg (27.0-33.0); MEAN CORPUSCULAR HGB CONC 33.7 g/dl (32.0-36.5); MEAN CORPUSCULAR VOLUME 104.5 fl (80.0-96.0); MONO # 0.5 10^3/uL (0.0-0.8); MONO % 15.8 % (2.0-8.0); NEUTROPHILS # 1.6 10^3/uL (1.5-8.5); NEUTROPHILS % 57.7 % (36.0-66.0); PLATELET COUNT, AUTOMATED 164 10^3/uL (150-450); RED BLOOD COUNT 3.98 10^6/uL (4.00-5.40); WHITE BLOOD COUNT 2.8 10^3/uL (4.0-10.0)
[2022-09-27 11:45] LABS: ALBUMIN 3.3 G/DL (3.2-5.2); BILIRUBIN,TOTAL 0.6 MG/DL (0.3-1.2); CALCIUM LEVEL 7.8 MG/DL (8.5-10.1); CREATININE FOR GFR 1.09 MG/DL (0.55-1.30); GLOMERULAR FILTRATION RATE 55.1 (>51); MAGNESIUM LEVEL 1.7 MG/DL (1.8-2.4)
== END ==
LOC: M PLALAB 08:33
PROVIDERS: ATTEND Nurse Practitioner Acute Care
DX: Z94.1 Heart transplant status (principal); D84.9 Immunodeficiency, unspecified; Z79.899 Other long term (current) drug therapy

== ENCOUNTER → 2022-10-10 | Outpatient (CLI) | payer OTHER ==
[~2022-10-10] MED LIST changes: +AZIT-12 PO; -HYDR200T3; -HYDR200T3 PO; +HYDR200T46; +HYDR200T46 PO
[2022-10-10 10:42] LABS: BASO % 1.1 % (0.0-1.0); EOS # 0.1 10^3/uL (0.0-0.5); EOS % 2.6 % (0.0-3.0); HEMATOCRIT 37.1 % (36.0-47.0); HEMOGLOBIN 12.2 g/dl (12.0-15.5); LYMPH # 0.3 10^3/uL (1.5-5.0); LYMPH % 17.5 % (24.0-44.0); MEAN CORPUSCULAR HGB CONC 32.9 g/dl (32.0-36.5); MEAN CORPUSCULAR VOLUME 106.3 fl (80.0-96.0); MONO # 0.2 10^3/uL (0.0-0.8); MONO % 7.9 % (2.0-8.0); NEUTROPHILS # 1.3 10^3/uL (1.5-8.5); NEUTROPHILS % 70.4 % (36.0-66.0); PLATELET COUNT, AUTOMATED 103 10^3/uL (150-450); RED BLOOD COUNT 3.49 10^6/uL (4.00-5.40); WHITE BLOOD COUNT 1.9 10^3/uL (4.0-10.0)
[2022-10-10 11:07] LABS: ALBUMIN 3.2 G/DL (3.2-5.2); ALKALINE PHOSPHATASE 156 U/L (46-116); ALT/SGPT 95 U/L (7.0-40); AST/SGOT 24 U/L (<34); BILIRUBIN,TOTAL 0.4 MG/DL (0.3-1.2); BLOOD UREA NITROGEN 12 MG/DL (9-23); CALCIUM LEVEL 8.4 MG/DL (8.5-10.1); CARBON DIOXIDE LEVEL 31 MMOL/L (20-31); CHLORIDE LEVEL 107 MMOL/L (98-107); CREATININE FOR GFR 1.01 MG/DL (0.55-1.30); GLOMERULAR FILTRATION RATE > 60.0 (>51); GLUCOSE, FASTING 97 MG/DL (60-100); POTASSIUM SERUM 4.6 MMOL/L (3.5-5.1); SODIUM LEVEL 140 MMOL/L (136-145); TOTAL PROTEIN 5.8 G/DL (5.7-8.2)
== END ==
LOC: M PLALAB 07:48
PROVIDERS: ATTEND Internal Medicine Hematology & Oncology
DX: C50.111 Malignant neoplasm of central portion of right female breast (principal); Z17.0 Estrogen receptor positive status [ER+]

== ENCOUNTER 2022-10-12 11:54 | Emergency (ER) | payer OTHER ==
[~2022-10-12] VITALS: Ht 170.2 cm; Wt 94.7 kg
[~2022-10-12 11:54] MED LIST changes: -AZIT-12 PO
[2022-10-12 12:46] LABS: BASO % 0.6 % (0.0-1.0); EOS % 1.9 % (0.0-3.0); HEMATOCRIT 40.1 % (36.0-47.0); HEMOGLOBIN 13.6 g/dl (12.0-15.5); LYMPH # 0.2 10^3/uL (1.5-5.0); LYMPH % 12.4 % (24.0-44.0); MEAN CORPUSCULAR HEMOGLOBIN 35.6 pg (27.0-33.0); MEAN CORPUSCULAR HGB CONC 33.9 g/dl (32.0-36.5); MONO # 0.1 10^3/uL (0.0-0.8); NEUTROPHILS # 1.3 10^3/uL (1.5-8.5); NEUTROPHILS % 79.5 % (36.0-66.0); PLATELET COUNT, AUTOMATED 111 10^3/uL (150-450); RED BLOOD COUNT 3.82 10^6/uL (4.00-5.40); WHITE BLOOD COUNT 1.6 10^3/uL (4.0-10.0)
[2022-10-12 12:55] LABS: INR 0.9; PROTHROMBIN TIME 12.3 SECONDS (12.5-14.5)
[2022-10-12 13:08] LABS: LIPASE 26 U/L (12-53)
[2022-10-12 13:10] LABS: CPK CREATINE PHOSPHOKINASE 69 U/L (34-145)
[2022-10-12] MEDS ORDERED: methylPREDNISolone 40MG 1ML VIAL IV ONE (13:10)
[2022-10-12] MEDS ORDERED: IPRATROPIUM 0.5MG/ALBUTEROL 2.5MG INH SOL UD 3ML (DUONEB) NEB ONE (13:10)
[2022-10-12 13:16] LABS: RSV AMPLIFICATION NEGATIVE (NEGATIVE)
[2022-10-12 13:20] LABS: ALBUMIN 3.5 G/DL (3.2-5.2); ALKALINE PHOSPHATASE 145 U/L (46-116); ALT/SGPT 65 U/L (7.0-40); AST/SGOT 18 U/L (<34); BILIRUBIN,DIRECT 0.2 MG/DL (<0.4); BILIRUBIN,TOTAL 0.5 MG/DL (0.3-1.2); BLOOD UREA NITROGEN 9 MG/DL (9-23); CALCIUM LEVEL 8.9 MG/DL (8.5-10.1); CARBON DIOXIDE LEVEL 29 MMOL/L (20-31); CHLORIDE LEVEL 107 MMOL/L (98-107); CK-MB VALUE MASS < 1.0 NG/ML (<3.6); CREATININE FOR GFR 0.84 MG/DL (0.55-1.30); GLOMERULAR FILTRATION RATE > 60.0 (>51); GLUCOSE, FASTING 107 MG/DL (60-100); MB/CK RELATIVE INDEX 1.44 (< OR =4); POTASSIUM SERUM 3.8 MMOL/L (3.5-5.1); SODIUM LEVEL 143 MMOL/L (136-145); TOTAL PROTEIN 6.4 G/DL (5.7-8.2)
[2022-10-12] MEDS ORDERED: PRED10TA2 PO (14:17)
[2022-10-12] MEDS ORDERED: AZIT-12 PO (14:17)
[2022-10-12 14:50] VITALS: BP 117/84; TEMP 97.3; O2SAT 98
== END 2022-10-12 14:50 | disposition home or self-care (01) ==
LOC: M ED 11:54
DX: J20.9 Acute bronchitis, unspecified (principal); J44.1 Chronic obstructive pulmonary disease with (acute) exacerbation; I10 Essential (primary) hypertension; Z85.3 Personal history of malignant neoplasm of breast; Z87.891 Personal history of nicotine dependence; Z88.6 Allergy status to analgesic agent; Z88.2 Allergy status to sulfonamides; Z88.1 Allergy status to other antibiotic agents; Z88.8 Allergy status to other drugs, medicaments and biological substances; Z79.899 Other long term (current) drug therapy; Z79.51 Long term (current) use of inhaled steroids
CPT/HCPCS: 70450; 71045; 80048; 80076; 82550; 82553; 83690; 84484; 85025; 85610; 87631; 93005; 93041; 94640; 94760; 96374; 99285; J2920

== ENCOUNTER → 2022-10-18 | Outpatient (CLI) | payer OTHER ==
[~2022-10-18] MED LIST changes: +AZIT-12 PO
== END ==
LOC: M RAD 17:30
PROVIDERS: ATTEND Physician Assistant
DX: Z94.1 Heart transplant status (principal); J44.1 Chronic obstructive pulmonary disease with (acute) exacerbation; Z90.49 Acquired absence of other specified parts of digestive tract; I70.0 Atherosclerosis of aorta; K91.1 Postgastric surgery syndromes

== ENCOUNTER → 2022-10-18 | Outpatient (REF) | payer OTHER ==
[2022-10-18 15:08] LABS: ALBUMIN 3.2 G/DL (3.2-5.2); BILIRUBIN,TOTAL 0.4 MG/DL (0.3-1.2); CALCIUM LEVEL 8.6 MG/DL (8.5-10.1); CREATININE FOR GFR 1.02 MG/DL (0.55-1.30); GLOMERULAR FILTRATION RATE 59.5 (>51); TOTAL PROTEIN 5.6 G/DL (5.7-8.2)
[2022-10-18 15:13] LABS: BASO % 0.4 % (0.0-1.0); EOS # 0.1 10^3/uL (0.0-0.5); HEMATOCRIT 36.3 % (36.0-47.0); HEMOGLOBIN 11.9 g/dl (12.0-15.5); LYMPH # 0.7 10^3/uL (1.5-5.0); LYMPH % 26.4 % (24.0-44.0); MEAN CORPUSCULAR HEMOGLOBIN 35.3 pg (27.0-33.0); MEAN CORPUSCULAR HGB CONC 32.8 g/dl (32.0-36.5); MEAN CORPUSCULAR VOLUME 107.7 fl (80.0-96.0); MONO # 0.3 10^3/uL (0.0-0.8); MONO % 11.6 % (2.0-8.0); NEUTROPHILS # 1.5 10^3/uL (1.5-8.5); NEUTROPHILS % 58.4 % (36.0-66.0); RED BLOOD COUNT 3.37 10^6/uL (4.00-5.40); WHITE BLOOD COUNT 2.5 10^3/uL (4.0-10.0)
[2022-10-18 15:48] LABS: PLATELET COUNT, AUTOMATED 94 10^3/uL (150-450)
== END ==
LOC: M SFHCADAM 09:09
PROVIDERS: ATTEND Physician Assistant
DX: J44.1 Chronic obstructive pulmonary disease with (acute) exacerbation (principal)

== ENCOUNTER → 2022-10-19 | Outpatient (CLI) | payer OTHER ==
[2022-10-22 21:07] LABS: CMV QUANT DNA PCR (PLASMA) Negative (Negative)
== END ==
LOC: M PLALAB 16:09
PROVIDERS: ATTEND Nurse Practitioner Acute Care
DX: Z94.1 Heart transplant status (principal); Z79.899 Other long term (current) drug therapy

== ENCOUNTER → 2022-11-12 | Outpatient (CLI) | payer OTHER ==
[2022-11-12 14:21] LABS: BASO % 0.4 % (0.0-1.0); EOS % 1.5 % (0.0-3.0); HEMATOCRIT 39.6 % (36.0-47.0); HEMOGLOBIN 13.2 g/dl (12.0-15.5); LYMPH # 0.4 10^3/uL (1.5-5.0); LYMPH % 13.9 % (24.0-44.0); MEAN CORPUSCULAR HEMOGLOBIN 36.4 pg (27.0-33.0); MEAN CORPUSCULAR HGB CONC 33.3 g/dl (32.0-36.5); MEAN CORPUSCULAR VOLUME 109.1 fl (80.0-96.0); MONO # 0.3 10^3/uL (0.0-0.8); MONO % 12.5 % (2.0-8.0); NEUTROPHILS # 1.9 10^3/uL (1.5-8.5); NEUTROPHILS % 69.1 % (36.0-66.0); PLATELET COUNT, AUTOMATED 222 10^3/uL (150-450); RED BLOOD COUNT 3.63 10^6/uL (4.00-5.40); WHITE BLOOD COUNT 2.7 10^3/uL (4.0-10.0)
[2022-11-12 14:44] LABS: ALBUMIN 3.2 G/DL (3.2-5.2); ALKALINE PHOSPHATASE 66 U/L (46-116); ALT/SGPT 24 U/L (7.0-40); AST/SGOT 22 U/L (<34); BILIRUBIN,TOTAL 0.6 MG/DL (0.3-1.2); BLOOD UREA NITROGEN 14 MG/DL (9-23); CALCIUM LEVEL 8.9 MG/DL (8.5-10.1); CARBON DIOXIDE LEVEL 31 MMOL/L (20-31); CHLORIDE LEVEL 108 MMOL/L (98-107); CREATININE FOR GFR 0.83 MG/DL (0.55-1.30); GLOMERULAR FILTRATION RATE > 60.0 (>51); GLUCOSE, FASTING 86 MG/DL (60-100); MAGNESIUM LEVEL 1.4 MG/DL (1.8-2.4); SODIUM LEVEL 145 MMOL/L (136-145); TOTAL PROTEIN 5.8 G/DL (5.7-8.2); TRIGLYCERIDES LEVEL 122 MG/DL (<150)
== END ==
LOC: M PLALAB 08:59
PROVIDERS: ATTEND Internal Medicine Advanced Heart Failure and Transplant Cardiology
DX: Z94.1 Heart transplant status (principal); D84.9 Immunodeficiency, unspecified; Z79.899 Other long term (current) drug therapy; M05.79 Rheumatoid arthritis with rheumatoid factor of multiple sites without organ or systems involvement; M89.49 Other hypertrophic osteoarthropathy, multiple sites; Z79.52 Long term (current) use of systemic steroids

== ENCOUNTER → 2022-11-12 | Outpatient (CLI) | payer OTHER ==
[2022-11-12 14:21] LABS: BASO % 0.4 % (0.0-1.0); EOS # 0.1 10^3/uL (0.0-0.5); EOS % 2.2 % (0.0-3.0); HEMATOCRIT 39.7 % (36.0-47.0); HEMOGLOBIN 13.2 g/dl (12.0-15.5); LYMPH # 0.4 10^3/uL (1.5-5.0); LYMPH % 14.9 % (24.0-44.0); MEAN CORPUSCULAR HEMOGLOBIN 36.4 pg (27.0-33.0); MEAN CORPUSCULAR HGB CONC 33.2 g/dl (32.0-36.5); MEAN CORPUSCULAR VOLUME 109.4 fl (80.0-96.0); MONO # 0.3 10^3/uL (0.0-0.8); MONO % 11.9 % (2.0-8.0); NEUTROPHILS # 1.8 10^3/uL (1.5-8.5); NEUTROPHILS % 68.4 % (36.0-66.0); PLATELET COUNT, AUTOMATED 220 10^3/uL (150-450); RED BLOOD COUNT 3.63 10^6/uL (4.00-5.40); WHITE BLOOD COUNT 2.7 10^3/uL (4.0-10.0)
[2022-11-12 14:27] LABS: ALBUMIN 3.2 G/DL (3.2-5.2); ALKALINE PHOSPHATASE 66 U/L (46-116); ALT/SGPT 25 U/L (7.0-40); AST/SGOT 23 U/L (<34); BILIRUBIN,TOTAL 0.6 MG/DL (0.3-1.2); BLOOD UREA NITROGEN 13 MG/DL (9-23); C REACTIVE PROTEIN QUANTITATIV < 0.40 MG/DL (<1.0); CALCIUM LEVEL 8.1 MG/DL (8.5-10.1); CARBON DIOXIDE LEVEL 31 MMOL/L (20-31); CHLORIDE LEVEL 108 MMOL/L (98-107); CREATININE FOR GFR 0.85 MG/DL (0.55-1.30); GLOMERULAR FILTRATION RATE > 60.0 (>51); GLUCOSE, FASTING 90 MG/DL (60-100); POTASSIUM SERUM 4.3 MMOL/L (3.5-5.1); SODIUM LEVEL 146 MMOL/L (136-145); TOTAL PROTEIN 5.7 G/DL (5.7-8.2)
[2022-11-12 14:36] LABS: ERYTHROCYTE SEDIMENTATION RATE 14 mm/hr (0-30)
== END ==
LOC: M PLALAB 09:03
PROVIDERS: ATTEND Internal Medicine Rheumatology
DX: M05.79 Rheumatoid arthritis with rheumatoid factor of multiple sites without organ or systems involvement (principal); M89.49 Other hypertrophic osteoarthropathy, multiple sites; D72.819 Decreased white blood cell count, unspecified; Z79.52 Long term (current) use of systemic steroids; Z79.899 Other long term (current) drug therapy

== ENCOUNTER 2022-12-15 06:23 | Emergency (ER) | payer OTHER ==
[~2022-12-15] VITALS: Ht 170.2 cm; Wt 92.3 kg
[2022-12-15] MEDS ORDERED: NS 1,000 ML IV ONE (09:10)
[2022-12-15] MEDS ORDERED: fentaNYL 100 MCG/2 ML INJECTION IV ONE ×2 (09:10→11:20)
[2022-12-15 09:43] LABS: BASO % 0.3 % (0.0-1.0); HEMATOCRIT 43.2 % (36.0-47.0); HEMOGLOBIN 14.5 g/dl (12.0-15.5); LYMPH # 0.2 10^3/uL (1.5-5.0); LYMPH % 7.4 % (24.0-44.0); MEAN CORPUSCULAR HEMOGLOBIN 37.5 pg (27.0-33.0); MEAN CORPUSCULAR HGB CONC 33.6 g/dl (32.0-36.5); MEAN CORPUSCULAR VOLUME 111.6 fl (80.0-96.0); MONO # 0.2 10^3/uL (0.0-0.8); MONO % 5.5 % (2.0-8.0); NEUTROPHILS # 2.6 10^3/uL (1.5-8.5); NEUTROPHILS % 84.2 % (36.0-66.0); PLATELET COUNT, AUTOMATED 139 10^3/uL (150-450); RED BLOOD COUNT 3.87 10^6/uL (4.00-5.40); WHITE BLOOD COUNT 3.1 10^3/uL (4.0-10.0)
[2022-12-15] MEDS ORDERED: cefTRIAXone SOD 1 GM in D5W MINI-BAG PLUS 50 ML IV ONE (09:45)
[2022-12-15 10:00] LABS: ERYTHROCYTE SEDIMENTATION RATE 36 mm/hr (0-30)
[2022-12-15 10:22] LABS: RSV AMPLIFICATION NEGATIVE (NEGATIVE)
[2022-12-15 10:41] LABS: BLOOD UREA NITROGEN 12 MG/DL (9-23); CALCIUM LEVEL 8.5 MG/DL (8.5-10.1); CARBON DIOXIDE LEVEL 29 MMOL/L (20-31); CHLORIDE LEVEL 104 MMOL/L (98-107); CREATININE FOR GFR 0.85 MG/DL (0.55-1.30); GLOMERULAR FILTRATION RATE > 60.0 (>51); GLUCOSE, FASTING 89 MG/DL (60-100); POTASSIUM SERUM 3.6 MMOL/L (3.5-5.1); SODIUM LEVEL 140 MMOL/L (136-145)
[2022-12-15] MEDS ORDERED: CEPH500C PO (11:29)
[2022-12-15 11:47] VITALS: BP 99/55; TEMP 97; O2SAT 94
== END 2022-12-15 11:49 | disposition home or self-care (01) ==
LOC: M ED 06:23
DX: L03.113 Cellulitis of right upper limb (principal); I10 Essential (primary) hypertension; J44.9 Chronic obstructive pulmonary disease, unspecified; Z86.718 Personal history of other venous thrombosis and embolism; Z94.1 Heart transplant status; Z88.6 Allergy status to analgesic agent; Z88.2 Allergy status to sulfonamides; Z88.8 Allergy status to other drugs, medicaments and biological substances; Z88.1 Allergy status to other antibiotic agents; Z98.84 Bariatric surgery status; Z85.3 Personal history of malignant neoplasm of breast; F41.9 Anxiety disorder, unspecified; Z79.52 Long term (current) use of systemic steroids; Z79.899 Other long term (current) drug therapy; Z79.82 Long term (current) use of aspirin; Z79.51 Long term (current) use of inhaled steroids
CPT/HCPCS: 36415; 80048; 83605; 85025; 85652; 86140; 87040; 87631; 93005; 93971; 96365; 96375; 96376; 99284; J0696; J3010

== ENCOUNTER 2022-12-16 10:37 | Emergency (ER) | payer OTHER ==
[~2022-12-16] VITALS: Ht 170.2 cm; Wt 93.3 kg
[~2022-12-16 10:37] MED LIST changes: +CEPH500C PO
[2022-12-16 13:03] LABS: BASO % 0.3 % (0.0-1.0); EOS % 1.4 % (0.0-3.0); HEMATOCRIT 40.8 % (36.0-47.0); HEMOGLOBIN 13.7 g/dl (12.0-15.5); LYMPH # 0.2 10^3/uL (1.5-5.0); LYMPH % 7.7 % (24.0-44.0); MEAN CORPUSCULAR HEMOGLOBIN 37.1 pg (27.0-33.0); MEAN CORPUSCULAR HGB CONC 33.6 g/dl (32.0-36.5); MEAN CORPUSCULAR VOLUME 110.6 fl (80.0-96.0); MONO # 0.2 10^3/uL (0.0-0.8); NEUTROPHILS # 2.3 10^3/uL (1.5-8.5); NEUTROPHILS % 81.2 % (36.0-66.0); PLATELET COUNT, AUTOMATED 145 10^3/uL (150-450); RED BLOOD COUNT 3.69 10^6/uL (4.00-5.40); WHITE BLOOD COUNT 2.9 10^3/uL (4.0-10.0)
[2022-12-16 13:44] VITALS: BP 139/78; TEMP 98.2; O2SAT 99
== END 2022-12-16 13:45 | disposition home or self-care (01) ==
LOC: M ED 10:37
DX: L03.113 Cellulitis of right upper limb (principal); Z85.3 Personal history of malignant neoplasm of breast; Z88.6 Allergy status to analgesic agent; Z88.2 Allergy status to sulfonamides; Z88.5 Allergy status to narcotic agent; Z88.8 Allergy status to other drugs, medicaments and biological substances; Z88.1 Allergy status to other antibiotic agents; I10 Essential (primary) hypertension; G47.30 Sleep apnea, unspecified; Z98.84 Bariatric surgery status; J44.9 Chronic obstructive pulmonary disease, unspecified; E03.9 Hypothyroidism, unspecified; F41.9 Anxiety disorder, unspecified; Z79.899 Other long term (current) drug therapy; Z79.52 Long term (current) use of systemic steroids; Z79.82 Long term (current) use of aspirin; Z79.51 Long term (current) use of inhaled steroids

== ENCOUNTER → 2022-12-18 | Outpatient (CLI) | payer OTHER | LOC: M ONCR 14:43 | PROVIDERS: ATTEND General Practice | DX: C50.111 Malignant neoplasm of central portion of right female breast (principal); I97.2 Postmastectomy lymphedema syndrome; L03.113 Cellulitis of right upper limb; Z87.891 Personal history of nicotine dependence; Z88.1 Allergy status to other antibiotic agents; Z88.2 Allergy status to sulfonamides; Z88.5 Allergy status to narcotic agent; Z88.6 Allergy status to analgesic agent; Z88.8 Allergy status to other drugs, medicaments and biological substances; Z79.52 Long term (current) use of systemic steroids; Z79.631 Long term (current) use of antimetabolite agent; Z79.811 Long term (current) use of aromatase inhibitors; Z79.82 Long term (current) use of aspirin; Z79.899 Other long term (current) drug therapy; Z86.718 Personal history of other venous thrombosis and embolism; Z90.11 Acquired absence of right breast and nipple; Z92.21 Personal history of antineoplastic chemotherapy; Z92.3 Personal history of irradiation; Z94.1 Heart transplant status ==

== ENCOUNTER → 2023-01-09 | Outpatient (CLI) | payer OTHER ==
[2023-01-09 10:49] LABS: BASO % 0.4 % (0.0-1.0); EOS # 0.1 10^3/uL (0.0-0.5); HEMATOCRIT 40.5 % (36.0-47.0); HEMOGLOBIN 13.5 g/dl (12.0-15.5); LYMPH # 0.4 10^3/uL (1.5-5.0); LYMPH % 16.3 % (24.0-44.0); MEAN CORPUSCULAR HEMOGLOBIN 37.7 pg (27.0-33.0); MEAN CORPUSCULAR HGB CONC 33.3 g/dl (32.0-36.5); MEAN CORPUSCULAR VOLUME 113.1 fl (80.0-96.0); MONO # 0.5 10^3/uL (0.0-0.8); MONO % 20.3 % (2.0-8.0); NEUTROPHILS # 1.4 10^3/uL (1.5-8.5); NEUTROPHILS % 58.2 % (36.0-66.0); PLATELET COUNT, AUTOMATED 130 10^3/uL (150-450); RED BLOOD COUNT 3.58 10^6/uL (4.00-5.40); WHITE BLOOD COUNT 2.5 10^3/uL (4.0-10.0)
[2023-01-09 11:29] LABS: ALBUMIN 3.3 G/DL (3.2-5.2); ALKALINE PHOSPHATASE 70 U/L (46-116); ALT/SGPT 24 U/L (7.0-40); AST/SGOT 20 U/L (<34); BILIRUBIN,TOTAL 0.4 MG/DL (0.3-1.2); BLOOD UREA NITROGEN 12 MG/DL (9-23); CALCIUM LEVEL 8.2 MG/DL (8.5-10.1); CARBON DIOXIDE LEVEL 32 MMOL/L (20-31); CHLORIDE LEVEL 106 MMOL/L (98-107); CREATININE FOR GFR 0.83 MG/DL (0.55-1.30); GLOMERULAR FILTRATION RATE > 60.0 (>51); GLUCOSE, FASTING 98 MG/DL (60-100); MAGNESIUM LEVEL 1.4 MG/DL (1.8-2.4); POTASSIUM SERUM 3.6 MMOL/L (3.5-5.1); SODIUM LEVEL 143 MMOL/L (136-145); TOTAL PROTEIN 5.8 G/DL (5.7-8.2); TRIGLYCERIDES LEVEL 145 MG/DL (<150)
== END ==
LOC: M PLALAB 08:19
PROVIDERS: ATTEND Nurse Practitioner Acute Care
DX: D84.9 Immunodeficiency, unspecified (principal); Z94.1 Heart transplant status; Z79.899 Other long term (current) drug therapy

== ENCOUNTER → 2023-01-18 | Outpatient (CLI) | payer OTHER | LOC: M WHC 07:58 | PROVIDERS: ATTEND Internal Medicine Hematology & Oncology | DX: C50.919 Malignant neoplasm of unspecified site of unspecified female breast (principal); Z51.81 Encounter for therapeutic drug level monitoring; Z79.811 Long term (current) use of aromatase inhibitors ==

== ENCOUNTER → 2023-02-27 | Outpatient (CLI) | payer OTHER ==
[~2023-02-27] MED LIST changes: -CEFD300C41 PO; +CEFD300C42 PO
[2023-02-28 14:08] LABS: CMV QUANT DNA PCR (PLASMA) Negative (Negative)
== END ==
LOC: M PLALAB 07:30
PROVIDERS: ATTEND Nurse Practitioner Acute Care
DX: Z94.1 Heart transplant status (principal); Z79.899 Other long term (current) drug therapy; M05.79 Rheumatoid arthritis with rheumatoid factor of multiple sites without organ or systems involvement

== ENCOUNTER → 2023-02-27 | Outpatient (CLI) | payer OTHER ==
[2023-02-27 10:21] LABS: BASO % 1.8 % (0.0-1.0); EOS % 1.8 % (0.0-3.0); HEMATOCRIT 35.8 % (36.0-47.0); HEMOGLOBIN 12.1 g/dl (12.0-15.5); LYMPH # 0.5 10^3/uL (1.5-5.0); LYMPH % 43.4 % (24.0-44.0); MEAN CORPUSCULAR HEMOGLOBIN 37.1 pg (27.0-33.0); MEAN CORPUSCULAR HGB CONC 33.8 g/dl (32.0-36.5); MEAN CORPUSCULAR VOLUME 109.8 fl (80.0-96.0); MONO # 0.1 10^3/uL (0.0-0.8); MONO % 11.5 % (2.0-8.0); NEUTROPHILS % 40.6 % (36.0-66.0); RED BLOOD COUNT 3.26 10^6/uL (4.00-5.40); WHITE BLOOD COUNT 1.1 10^3/uL (4.0-10.0)
[2023-02-27 10:25] LABS: C REACTIVE PROTEIN QUANTITATIV < 0.40 MG/DL (<1.0)
[2023-02-27 10:26] LABS: ALBUMIN 3.1 G/DL (3.2-5.2); ALKALINE PHOSPHATASE 61 U/L (46-116); ALT/SGPT 15 U/L (7.0-40); AST/SGOT 17 U/L (<34); BILIRUBIN,TOTAL 0.5 MG/DL (0.3-1.2); BLOOD UREA NITROGEN 11 MG/DL (9-23); CALCIUM LEVEL 8.3 MG/DL (8.5-10.1); CARBON DIOXIDE LEVEL 33 MMOL/L (20-31); CHLORIDE LEVEL 106 MMOL/L (98-107); CREATININE FOR GFR 0.94 MG/DL (0.55-1.30); GLOMERULAR FILTRATION RATE > 60.0 (>51); GLUCOSE, FASTING 63 MG/DL (60-100); POTASSIUM SERUM 4.1 MMOL/L (3.5-5.1); SODIUM LEVEL 143 MMOL/L (136-145); TOTAL PROTEIN 5.7 G/DL (5.7-8.2)
[2023-02-27 10:43] LABS: ERYTHROCYTE SEDIMENTATION RATE 14 mm/hr (0-30)
[2023-02-27 10:47] LABS: NEUTROPHILS # 0.5 10^3/uL (1.5-8.5); PLATELET COUNT, AUTOMATED 64 10^3/uL (150-450)
== END ==
LOC: M PLALAB 07:33
PROVIDERS: ATTEND Internal Medicine Rheumatology
DX: M05.79 Rheumatoid arthritis with rheumatoid factor of multiple sites without organ or systems involvement (principal)

== ENCOUNTER → 2023-03-06 | Outpatient (CLI) | payer OTHER ==
[2023-03-06 12:23] LABS: BASO % 0.7 % (0.0-1.0); EOS % 0.7 % (0.0-3.0); HEMATOCRIT 35.5 % (36.0-47.0); HEMOGLOBIN 11.8 g/dl (12.0-15.5); LYMPH # 0.4 10^3/uL (1.5-5.0); LYMPH % 28.1 % (24.0-44.0); MEAN CORPUSCULAR HEMOGLOBIN 36.9 pg (27.0-33.0); MEAN CORPUSCULAR HGB CONC 33.2 g/dl (32.0-36.5); MEAN CORPUSCULAR VOLUME 110.9 fl (80.0-96.0); MONO # 0.4 10^3/uL (0.0-0.8); MONO % 30.4 % (2.0-8.0); NEUTROPHILS % 38.6 % (36.0-66.0); PLATELET COUNT, AUTOMATED 135 10^3/uL (150-450); WHITE BLOOD COUNT 1.4 10^3/uL (4.0-10.0)
[2023-03-06 12:50] LABS: ALBUMIN 3.1 G/DL (3.2-5.2); BILIRUBIN,TOTAL 0.4 MG/DL (0.3-1.2); CALCIUM LEVEL 8.2 MG/DL (8.5-10.1); CREATININE FOR GFR 1.03 MG/DL (0.55-1.30); GLOMERULAR FILTRATION RATE 58.8 (>51); POTASSIUM SERUM 3.7 MMOL/L (3.5-5.1); TOTAL PROTEIN 5.7 G/DL (5.7-8.2)
[2023-03-06 12:57] LABS: NEUTROPHILS # 0.5 10^3/uL (1.5-8.5)
== END ==
LOC: M PLALAB 07:51
PROVIDERS: ATTEND Internal Medicine Hematology & Oncology
DX: C50.111 Malignant neoplasm of central portion of right female breast (principal); Z17.0 Estrogen receptor positive status [ER+]

== ENCOUNTER → 2023-03-13 | Outpatient (CLI) | payer OTHER ==
[2023-03-13 12:06] LABS: ALBUMIN 3.3 G/DL (3.2-5.2); BASO % 1.1 % (0.0-1.0); BILIRUBIN,TOTAL 0.4 MG/DL (0.3-1.2); CALCIUM LEVEL 8.6 MG/DL (8.5-10.1); CREATININE FOR GFR 1.03 MG/DL (0.55-1.30); EOS % 0.6 % (0.0-3.0); GLOMERULAR FILTRATION RATE 58.8 (>51); HEMATOCRIT 38.5 % (36.0-47.0); HEMOGLOBIN 12.7 g/dl (12.0-15.5); LYMPH # 0.4 10^3/uL (1.5-5.0); LYMPH % 23.6 % (24.0-44.0); MEAN CORPUSCULAR HEMOGLOBIN 36.9 pg (27.0-33.0); MEAN CORPUSCULAR VOLUME 111.9 fl (80.0-96.0); MONO # 0.6 10^3/uL (0.0-0.8); MONO % 31.6 % (2.0-8.0); NEUTROPHILS % 38.5 % (36.0-66.0); PLATELET COUNT, AUTOMATED 211 10^3/uL (150-450); POTASSIUM SERUM 3.9 MMOL/L (3.5-5.1); RED BLOOD COUNT 3.44 10^6/uL (4.00-5.40); TOTAL PROTEIN 5.9 G/DL (5.7-8.2); WHITE BLOOD COUNT 1.7 10^3/uL (4.0-10.0)
[2023-03-13 12:44] LABS: NEUTROPHILS # 0.7 10^3/uL (1.5-8.5)
== END ==
LOC: M PLALAB 07:27
PROVIDERS: ATTEND Internal Medicine Hematology & Oncology
DX: C50.111 Malignant neoplasm of central portion of right female breast (principal); Z17.0 Estrogen receptor positive status [ER+]

== ENCOUNTER 2023-04-09 15:50 | Outpatient (CLI) | payer OTHER ==
[~2023-04-09] VITALS: Ht 177.8 cm; Wt 94.0 kg
[~2023-04-09 15:50] MED LIST changes: +ALBU2.5V10 INH; +ALBU8.5H INH; -BENZ1LOZ2 PO; +BUDE10.7 INH; +CALC1TAB63 PO; +CEFD1CAP9 PO; -CEFD300C42 PO; +CEFU50TA PO; -FLUT50SP17 NARES; +FLUTISP NARES; +SORE15LO PO; +SYNT75TA PO; +VARE1TAB2 PO
[2023-04-09 16:00] VITALS: BP 115/71; O2SAT 98
[2023-04-09] MEDS ORDERED: DALBAVANCIN 1,500 MG in D5W 250 ML IV ONE (16:05)
== END 2023-04-09 17:39 | disposition home or self-care (01) ==
LOC: M INFU 15:50
PROVIDERS: ATTEND Internal Medicine Nephrology
DX: L03.114 Cellulitis of left upper limb (principal); Z88.2 Allergy status to sulfonamides; Z88.5 Allergy status to narcotic agent; Z88.6 Allergy status to analgesic agent; Z88.8 Allergy status to other drugs, medicaments and biological substances
CPT/HCPCS: 96365; J0875

== ENCOUNTER → 2023-05-02 | Outpatient (CLI) | payer OTHER | LOC: M WHC 10:14 | PROVIDERS: ATTEND Nurse Practitioner Women's Health | DX: C50.911 Malignant neoplasm of unspecified site of right female breast (principal); Z85.3 Personal history of malignant neoplasm of breast | CPT/HCPCS: 77065; G0279 ==

== ENCOUNTER → 2023-05-06 | Outpatient (REF) | payer OTHER | LOC: M SFHCADAM 16:55 | PROVIDERS: ATTEND Family Medicine | DX: Z86.19 Personal history of other infectious and parasitic diseases (principal); R19.7 Diarrhea, unspecified ==

== ENCOUNTER → 2023-05-06 | Outpatient (REF) | payer OTHER | LOC: M SFHCRHEU 15:06 | PROVIDERS: ATTEND Internal Medicine Rheumatology | DX: M05.79 Rheumatoid arthritis with rheumatoid factor of multiple sites without organ or systems involvement (principal); M89.49 Other hypertrophic osteoarthropathy, multiple sites; D72.819 Decreased white blood cell count, unspecified; Z79.52 Long term (current) use of systemic steroids; Z79.899 Other long term (current) drug therapy; M65.4 Radial styloid tenosynovitis [de Quervain] ==

== ENCOUNTER → 2023-05-20 | Outpatient (REF) | payer OTHER | LOC: M LAB REF 16:24 | PROVIDERS: ATTEND Physician Assistant | DX: A04.0 Enteropathogenic Escherichia coli infection (principal); R19.7 Diarrhea, unspecified ==

== ENCOUNTER → 2023-05-24 | Outpatient (CLI) | payer OTHER ==
[2023-05-24 13:57] LABS: ALBUMIN 3.2 G/DL (3.2-5.2); ALKALINE PHOSPHATASE 73 U/L (46-116); ALT/SGPT 50 U/L (7.0-40); AST/SGOT 78 U/L (<34); BASO % 0.3 % (0.0-1.0); BILIRUBIN,TOTAL 0.5 MG/DL (0.3-1.2); BLOOD UREA NITROGEN 13 MG/DL (9-23); CALCIUM LEVEL 8.8 MG/DL (8.5-10.1); CARBON DIOXIDE LEVEL 32 MMOL/L (20-31); CHLORIDE LEVEL 104 MMOL/L (98-107); CREATININE FOR GFR 0.87 MG/DL (0.55-1.30); EOS # 0.1 10^3/uL (0.0-0.5); EOS % 2.3 % (0.0-3.0); GLOMERULAR FILTRATION RATE > 60.0 (>51); GLUCOSE, FASTING 92 MG/DL (60-100); HEMATOCRIT 43.4 % (36.0-47.0); HEMOGLOBIN 14.1 g/dl (12.0-15.5); LYMPH # 0.5 10^3/uL (1.5-5.0); LYMPH % 16.7 % (24.0-44.0); MAGNESIUM LEVEL 1.7 MG/DL (1.8-2.4); MEAN CORPUSCULAR HGB CONC 32.5 g/dl (32.0-36.5); MEAN CORPUSCULAR VOLUME 107.7 fl (80.0-96.0); MONO # 0.5 10^3/uL (0.0-0.8); MONO % 15.4 % (2.0-8.0); NEUTROPHILS # 1.9 10^3/uL (1.5-8.5); NEUTROPHILS % 62.7 % (36.0-66.0); PLATELET COUNT, AUTOMATED 204 10^3/uL (150-450); POTASSIUM SERUM 4.9 MMOL/L (3.5-5.1); RED BLOOD COUNT 4.03 10^6/uL (4.00-5.40); SODIUM LEVEL 140 MMOL/L (136-145); TOTAL PROTEIN 6.9 G/DL (5.7-8.2); TRIGLYCERIDES LEVEL 70 MG/DL (<150); WHITE BLOOD COUNT 3.1 10^3/uL (4.0-10.0)
== END ==
LOC: M PLALAB 09:25
PROVIDERS: ATTEND Nurse Practitioner Acute Care
DX: Z94.1 Heart transplant status (principal); D84.9 Immunodeficiency, unspecified; Z79.899 Other long term (current) drug therapy; E78.00 Pure hypercholesterolemia, unspecified; E83.42 Hypomagnesemia

== ENCOUNTER 2023-06-13 07:25 | Emergency (ER) | payer OTHER ==
[~2023-06-13] VITALS: Ht 170.2 cm; Wt 93.9 kg
[2023-06-13 08:17] LABS: BASO % 0.4 % (0.0-1.0); EOS % 1.8 % (0.0-3.0); HEMATOCRIT 39.2 % (36.0-47.0); HEMOGLOBIN 13.5 g/dl (12.0-15.5); LYMPH # 0.5 10^3/uL (1.5-5.0); LYMPH % 24.1 % (24.0-44.0); MEAN CORPUSCULAR HEMOGLOBIN 35.4 pg (27.0-33.0); MEAN CORPUSCULAR HGB CONC 34.4 g/dl (32.0-36.5); MEAN CORPUSCULAR VOLUME 102.9 fl (80.0-96.0); MONO # 0.5 10^3/uL (0.0-0.8); MONO % 22.3 % (2.0-8.0); NEUTROPHILS # 1.1 10^3/uL (1.5-8.5); NEUTROPHILS % 50.5 % (36.0-66.0); PLATELET COUNT, AUTOMATED 164 10^3/uL (150-450); RED BLOOD COUNT 3.81 10^6/uL (4.00-5.40); WHITE BLOOD COUNT 2.2 10^3/uL (4.0-10.0)
[2023-06-13 08:50] LABS: BLOOD UREA NITROGEN 17 MG/DL (9-23); CALCIUM LEVEL 8.1 MG/DL (8.5-10.1); CARBON DIOXIDE LEVEL 30 MMOL/L (20-31); CHLORIDE LEVEL 107 MMOL/L (98-107); GLOMERULAR FILTRATION RATE > 60.0 (>51); GLUCOSE, FASTING 87 MG/DL (60-100); POTASSIUM SERUM 3.5 MMOL/L (3.5-5.1); SODIUM LEVEL 141 MMOL/L (136-145)
[2023-06-13 08:55] VITALS: O2SAT 96
[2023-06-13 10:25] VITALS: BP 133/78; TEMP 97.5
== END 2023-06-13 10:41 | disposition home or self-care (01) ==
LOC: M ED 07:25
DX: G44.099 Other trigeminal autonomic cephalgias (TAC), not intractable (principal); Z85.3 Personal history of malignant neoplasm of breast; Z94.1 Heart transplant status; Z79.82 Long term (current) use of aspirin; Z79.899 Other long term (current) drug therapy; Z88.6 Allergy status to analgesic agent; Z88.2 Allergy status to sulfonamides; Z88.5 Allergy status to narcotic agent; Z88.8 Allergy status to other drugs, medicaments and biological substances

== ENCOUNTER → 2023-07-30 | Outpatient (CLI) | payer OTHER ==
[2023-07-30 15:23] LABS: BASO % 0.4 % (0.0-1.0); EOS % 0.8 % (0.0-3.0); HEMATOCRIT 40.9 % (36.0-47.0); HEMOGLOBIN 13.7 g/dl (12.0-15.5); LYMPH # 0.2 10^3/uL (1.5-5.0); LYMPH % 8.8 % (24.0-44.0); MEAN CORPUSCULAR HEMOGLOBIN 34.9 pg (27.0-33.0); MEAN CORPUSCULAR HGB CONC 33.5 g/dl (32.0-36.5); MEAN CORPUSCULAR VOLUME 104.3 fl (80.0-96.0); MONO # 0.4 10^3/uL (0.0-0.8); MONO % 15.3 % (2.0-8.0); NEUTROPHILS # 1.9 10^3/uL (1.5-8.5); NEUTROPHILS % 73.2 % (36.0-66.0); PLATELET COUNT, AUTOMATED 164 10^3/uL (150-450); RED BLOOD COUNT 3.92 10^6/uL (4.00-5.40); WHITE BLOOD COUNT 2.6 10^3/uL (4.0-10.0)
[2023-07-30 15:44] LABS: C REACTIVE PROTEIN QUANTITATIV < 0.40 MG/DL (<1.0)
[2023-07-30 15:45] LABS: ERYTHROCYTE SEDIMENTATION RATE 22 mm/hr (0-30)
[2023-07-30 15:46] LABS: ALBUMIN 3.3 G/DL (3.2-5.2); ALKALINE PHOSPHATASE 88 U/L (46-116); ALT/SGPT 43 U/L (7.0-40); AST/SGOT 47 U/L (<34); BILIRUBIN,TOTAL 0.5 MG/DL (0.3-1.2); BLOOD UREA NITROGEN 16 MG/DL (9-23); CALCIUM LEVEL 8.4 MG/DL (8.5-10.1); CARBON DIOXIDE LEVEL 32 MMOL/L (20-31); CHLORIDE LEVEL 105 MMOL/L (98-107); CREATININE FOR GFR 0.89 MG/DL (0.55-1.30); GLOMERULAR FILTRATION RATE > 60.0 (>51); GLUCOSE, FASTING 124 MG/DL (60-100); POTASSIUM SERUM 4.1 MMOL/L (3.5-5.1); SODIUM LEVEL 139 MMOL/L (136-145); TOTAL PROTEIN 6.4 G/DL (5.7-8.2)
== END ==
LOC: M PLALAB 11:42
PROVIDERS: ATTEND Internal Medicine Rheumatology
DX: M05.79 Rheumatoid arthritis with rheumatoid factor of multiple sites without organ or systems involvement (principal)

== ENCOUNTER 2023-10-28 11:00 | Emergency (ER) | payer OTHER ==
[~2023-10-28] VITALS: Ht 170.2 cm; Wt 91.9 kg
[~2023-10-28 11:00] MED LIST changes: +DOXY-440 PO; -DOXY-444 PO; +ONDA-282; -ONDA4TAB6; +PIPE4.5F IV; -ZOSY1SOL6 IV
[2023-10-28 12:09] LABS: VENOUS BASE EXCESS 5.5 (-2.0-2.0); VENOUS HCO3 31.6 MMOL/L (23.0-27.0); VENOUS O2 SATURATION 56.6 % (60.0-80.0); VENOUS PARTIAL PRESSURE CO2 52.3 mmHg (38.0-50.0); VENOUS PARTIAL PRESSURE O2 28.8 mmHg (30.0-50.0); VENOUS PH 7.399 UNITS (7.330-7.430); VENOUS STANDARD HCO3 28.4 MMOL/L; VENOUS TOTAL CO2 33.2 MMOL/L (24.0-28.0)
[2023-10-28 12:26] LABS: HEMATOCRIT 38.7 % (36.0-47.0); HEMOGLOBIN 13.2 g/dl (12.0-15.5); MEAN CORPUSCULAR HEMOGLOBIN 36.2 pg (27.0-33.0); MEAN CORPUSCULAR HGB CONC 34.1 g/dl (32.0-36.5); PLATELET COUNT, AUTOMATED 149 10^3/uL (150-450); RED BLOOD COUNT 3.65 10^6/uL (4.00-5.40)
[2023-10-28 12:27] LABS: INR 0.97; PROTHROMBIN TIME 12.6 SECONDS (12.5-14.5)
[2023-10-28 12:44] LABS: ALBUMIN 2.9 G/DL (3.2-5.2); ALKALINE PHOSPHATASE 66 U/L (46-116); ALT/SGPT 24 U/L (7.0-40); AST/SGOT 26 U/L (<34); BILIRUBIN,DIRECT 0.3 MG/DL (<0.4); BILIRUBIN,TOTAL 0.7 MG/DL (0.3-1.2); BLOOD UREA NITROGEN 11 MG/DL (9-23); CALCIUM LEVEL 7.8 MG/DL (8.5-10.1); CARBON DIOXIDE LEVEL 32 MMOL/L (20-31); CHLORIDE LEVEL 106 MMOL/L (98-107); CREATININE FOR GFR 0.82 MG/DL (0.55-1.30); GLOMERULAR FILTRATION RATE > 60.0 (>51); GLUCOSE, FASTING 108 MG/DL (60-100); POTASSIUM SERUM 3.2 MMOL/L (3.5-5.1); SODIUM LEVEL 143 MMOL/L (136-145); TOTAL PROTEIN 5.8 G/DL (5.7-8.2)
[2023-10-28 12:46] LABS: THYROID STIMULATING HORMONE 4.496 uIU/ML (0.55-4.78)
[2023-10-28 12:54] LABS: CK-MB VALUE MASS < 1.0 NG/ML (<3.6)
[2023-10-28 12:56] LABS: CPK CREATINE PHOSPHOKINASE 34 U/L (34-145); MB/CK RELATIVE INDEX 2.94 (< OR =4)
[2023-10-28 12:58] LABS: FREE T4 1.09 NG/DL (0.89-1.76)
[2023-10-28 13:07] LABS: PROCALCITONIN 0.47 ng/ml
[2023-10-28 13:16] LABS: BASOPHILS 2 % (0-1); LYMPHOCYTES 4 % (16-44); MONOCYTES 6 % (0-5); NEUTROPHILS 82 % (28-66)
[2023-10-28 13:17] LABS: PLATELET ESTIMATE NORMAL (NORMAL)
[2023-10-28] MEDS: AZITHROMYCIN 250MG TABLET PO ONE (14:04)
[2023-10-28] MEDS: cefTRIAXone SOD 1 GM in D5W MINI-BAG PLUS 50 ML IV ONE (14:04)
[2023-10-28] MEDS: POTASSIUM CHLORIDE 10MEQ SR TABLET PO ONE (14:04)
[2023-10-28] MEDS: IPRATROPIUM 0.5MG/ALBUTEROL 2.5MG INH SOL UD 3ML (DUONEB) NEB ONE (14:20)
[2023-10-28] MEDS ORDERED: LEVO750T14 PO (16:03)
[2023-10-28] MEDS: LevoFLOXacin IV 750 MG in IV 1 EA IV ONE (16:27)
[2023-10-28 18:36] VITALS: BP 102/55; TEMP 98.4; O2SAT 94
== END 2023-10-28 18:40 | disposition home or self-care (01) ==
LOC: M ED 11:00
DX: J18.9 Pneumonia, unspecified organism (principal); J11.1 Influenza due to unidentified influenza virus with other respiratory manifestations; B34.8 Other viral infections of unspecified site; Z85.3 Personal history of malignant neoplasm of breast; Z79.899 Other long term (current) drug therapy; Z88.6 Allergy status to analgesic agent; Z88.2 Allergy status to sulfonamides; Z88.5 Allergy status to narcotic agent; Z88.8 Allergy status to other drugs, medicaments and biological substances
CPT/HCPCS: 71045; 80048; 80076; 82550; 82553; 82803; 83605; 83880; 84145; 84439; 84443; 84484; 85025; 85610; 86140; 87040; 87486; 87581; 87633; 87798; 93005; 93041; 94640; 94760; 96365; 96366; 96368; 99285; J0696; J1956

== ENCOUNTER → 2023-11-04 | Outpatient (CLI) | payer OTHER ==
[~2023-11-04] MED LIST changes: +LEVO750T14 PO
[2023-11-04 10:48] LABS: BASO % 0.6 % (0.0-1.0); EOS # 0.1 10^3/uL (0.0-0.5); EOS % 1.7 % (0.0-3.0); HEMATOCRIT 40.2 % (36.0-47.0); HEMOGLOBIN 13.7 g/dl (12.0-15.5); LYMPH # 0.5 10^3/uL (1.5-5.0); LYMPH % 13.5 % (24.0-44.0); MEAN CORPUSCULAR HGB CONC 34.1 g/dl (32.0-36.5); MEAN CORPUSCULAR VOLUME 105.5 fl (80.0-96.0); MONO # 0.6 10^3/uL (0.0-0.8); MONO % 17.5 % (2.0-8.0); NEUTROPHILS # 2.3 10^3/uL (1.5-8.5); NEUTROPHILS % 63.6 % (36.0-66.0); PLATELET COUNT, AUTOMATED 259 10^3/uL (150-450); RED BLOOD COUNT 3.81 10^6/uL (4.00-5.40); WHITE BLOOD COUNT 3.6 10^3/uL (4.0-10.0)
[2023-11-04 11:01] LABS: ALBUMIN 3.1 G/DL (3.2-5.2); ALKALINE PHOSPHATASE 66 U/L (46-116); ALT/SGPT 42 U/L (7.0-40); AST/SGOT 39 U/L (<34); BILIRUBIN,TOTAL 0.7 MG/DL (0.3-1.2); BLOOD UREA NITROGEN 12 MG/DL (9-23); CALCIUM LEVEL 8.1 MG/DL (8.5-10.1); CARBON DIOXIDE LEVEL 34 MMOL/L (20-31); CHLORIDE LEVEL 104 MMOL/L (98-107); CREATININE FOR GFR 0.93 MG/DL (0.55-1.30); GLOMERULAR FILTRATION RATE > 60.0 (>51); GLUCOSE, FASTING 77 MG/DL (60-100); MAGNESIUM LEVEL 1.6 MG/DL (1.8-2.4); POTASSIUM SERUM 3.6 MMOL/L (3.5-5.1); SODIUM LEVEL 141 MMOL/L (136-145); TOTAL PROTEIN 5.9 G/DL (5.7-8.2); TRIGLYCERIDES LEVEL 68 MG/DL (<150)
== END ==
LOC: M PLALAB 08:13
PROVIDERS: ATTEND Nurse Practitioner Acute Care
DX: M05.79 Rheumatoid arthritis with rheumatoid factor of multiple sites without organ or systems involvement (principal); M89.49 Other hypertrophic osteoarthropathy, multiple sites; M65.4 Radial styloid tenosynovitis [de Quervain]; E78.00 Pure hypercholesterolemia, unspecified; E83.42 Hypomagnesemia; D84.9 Immunodeficiency, unspecified; Z94.1 Heart transplant status; Z79.52 Long term (current) use of systemic steroids; Z79.899 Other long term (current) drug therapy

== ENCOUNTER → 2023-11-04 | Outpatient (CLI) | payer OTHER ==
[2023-11-04 10:56] LABS: BASO % 0.5 % (0.0-1.0); EOS # 0.1 10^3/uL (0.0-0.5); EOS % 1.9 % (0.0-3.0); HEMATOCRIT 40.2 % (36.0-47.0); HEMOGLOBIN 13.7 g/dl (12.0-15.5); LYMPH # 0.6 10^3/uL (1.5-5.0); LYMPH % 15.9 % (24.0-44.0); MEAN CORPUSCULAR HEMOGLOBIN 35.9 pg (27.0-33.0); MEAN CORPUSCULAR HGB CONC 34.1 g/dl (32.0-36.5); MEAN CORPUSCULAR VOLUME 105.2 fl (80.0-96.0); MONO # 0.6 10^3/uL (0.0-0.8); MONO % 14.8 % (2.0-8.0); NEUTROPHILS # 2.3 10^3/uL (1.5-8.5); NEUTROPHILS % 62.6 % (36.0-66.0); PLATELET COUNT, AUTOMATED 251 10^3/uL (150-450); RED BLOOD COUNT 3.82 10^6/uL (4.00-5.40); WHITE BLOOD COUNT 3.7 10^3/uL (4.0-10.0)
[2023-11-04 10:59] LABS: C REACTIVE PROTEIN QUANTITATIV < 0.40 MG/DL (<1.0)
[2023-11-04 11:01] LABS: ALBUMIN 3.1 G/DL (3.2-5.2); ALKALINE PHOSPHATASE 69 U/L (46-116); ALT/SGPT 39 U/L (7.0-40); AST/SGOT 38 U/L (<34); BILIRUBIN,TOTAL 0.8 MG/DL (0.3-1.2); BLOOD UREA NITROGEN 11 MG/DL (9-23); CALCIUM LEVEL 8.3 MG/DL (8.5-10.1); CARBON DIOXIDE LEVEL 34 MMOL/L (20-31); CHLORIDE LEVEL 105 MMOL/L (98-107); GLOMERULAR FILTRATION RATE > 60.0 (>51); GLUCOSE, FASTING 78 MG/DL (60-100); POTASSIUM SERUM 3.9 MMOL/L (3.5-5.1); SODIUM LEVEL 144 MMOL/L (136-145); TOTAL PROTEIN 5.9 G/DL (5.7-8.2)
[2023-11-04 11:03] LABS: ERYTHROCYTE SEDIMENTATION RATE 24 mm/hr (0-30)
== END ==
LOC: M PLALAB 08:11
PROVIDERS: ATTEND Internal Medicine Rheumatology
DX: M05.79 Rheumatoid arthritis with rheumatoid factor of multiple sites without organ or systems involvement (principal); M89.49 Other hypertrophic osteoarthropathy, multiple sites; D72.819 Decreased white blood cell count, unspecified; M65.4 Radial styloid tenosynovitis [de Quervain]; Z79.52 Long term (current) use of systemic steroids; Z79.899 Other long term (current) drug therapy

== ENCOUNTER → 2023-12-02 | Outpatient (CLI) | payer OTHER | LOC: M RAD 16:26 | PROVIDERS: ATTEND Internal Medicine Pulmonary Disease | DX: Z12.2 Encounter for screening for malignant neoplasm of respiratory organs (principal); Z87.891 Personal history of nicotine dependence ==

== ENCOUNTER → 2023-12-05 | Outpatient (CLI) | payer OTHER | LOC: M PLAIMG 13:40 | PROVIDERS: ATTEND Orthopaedic Surgery | DX: M17.0 Bilateral primary osteoarthritis of knee (principal); M25.562 Pain in left knee ==

== ENCOUNTER → 2024-01-02 | Outpatient (CLI) | payer OTHER | LOC: M ONCR 08:28 | PROVIDERS: ATTEND General Practice | DX: Z08 Encounter for follow-up examination after completed treatment for malignant neoplasm (principal); Z85.3 Personal history of malignant neoplasm of breast; I89.0 Lymphedema, not elsewhere classified; Z90.11 Acquired absence of right breast and nipple; Z92.3 Personal history of irradiation; Z79.51 Long term (current) use of inhaled steroids; Z79.52 Long term (current) use of systemic steroids; Z79.631 Long term (current) use of antimetabolite agent; Z79.811 Long term (current) use of aromatase inhibitors; Z79.82 Long term (current) use of aspirin; Z79.899 Other long term (current) drug therapy; Z87.891 Personal history of nicotine dependence; Z88.1 Allergy status to other antibiotic agents; Z88.2 Allergy status to sulfonamides; Z88.5 Allergy status to narcotic agent; Z88.6 Allergy status to analgesic agent; Z88.8 Allergy status to other drugs, medicaments and biological substances; Z92.21 Personal history of antineoplastic chemotherapy; Z94.1 Heart transplant status; Z95.1 Presence of aortocoronary bypass graft ==

== ENCOUNTER 2024-01-24 08:24 | Outpatient (RCR) | payer OTHER | END 2024-01-27 | LOC: M PT 08:24 | PROVIDERS: ATTEND General Practice | DX: I89.0 Lymphedema, not elsewhere classified (principal) ==

== ENCOUNTER 2024-01-29 12:52 | Outpatient (RCR) | payer OTHER ==
[~2024-01-29 12:52] MED LIST changes: +GABA-1172 PO; -GABA-282 PO
== END 2024-02-27 ==
LOC: M PT 12:52
PROVIDERS: ATTEND General Practice
DX: I89.0 Lymphedema, not elsewhere classified (principal)

== ENCOUNTER → 2024-02-26 | Outpatient (CLI) | payer OTHER ==
[2024-02-26 13:39] LABS: BASO % 0.6 % (0.0-1.0); EOS % 1.3 % (0.0-3.0); HEMATOCRIT 46.5 % (36.0-47.0); HEMOGLOBIN 15.9 g/dl (12.0-15.5); LYMPH # 0.4 10^3/uL (1.5-5.0); LYMPH % 14.2 % (24.0-44.0); MEAN CORPUSCULAR HGB CONC 34.2 g/dl (32.0-36.5); MEAN CORPUSCULAR VOLUME 105.2 fl (80.0-96.0); MONO # 0.5 10^3/uL (0.0-0.8); MONO % 17.5 % (2.0-8.0); NEUTROPHILS % 65.1 % (36.0-66.0); PLATELET COUNT, AUTOMATED 183 10^3/uL (150-450); RED BLOOD COUNT 4.42 10^6/uL (4.00-5.40); WHITE BLOOD COUNT 3.1 10^3/uL (4.0-10.0)
[2024-02-26 13:45] LABS: C REACTIVE PROTEIN QUANTITATIV < 0.40 MG/DL (<1.0)
[2024-02-26 13:47] LABS: ALBUMIN 3.2 G/DL (3.2-5.2); ALKALINE PHOSPHATASE 67 U/L (35-104); ALT/SGPT 27 U/L (7.0-40); AST/SGOT 31 U/L (<34); BILIRUBIN,TOTAL 0.5 MG/DL (0.3-1.2); BLOOD UREA NITROGEN 8 MG/DL (9-23); CALCIUM LEVEL 8.1 MG/DL (8.5-10.1); CARBON DIOXIDE LEVEL 36 MMOL/L (20-31); CHLORIDE LEVEL 107 MMOL/L (98-107); CREATININE FOR GFR 0.78 MG/DL (0.55-1.30); GLOMERULAR FILTRATION RATE > 60.0 (>51); GLUCOSE, FASTING 90 MG/DL (60-100); POTASSIUM SERUM 3.5 MMOL/L (3.5-5.1); SODIUM LEVEL 146 MMOL/L (136-145); TOTAL PROTEIN 6.2 G/DL (5.7-8.2)
[2024-02-26 14:47] LABS: ERYTHROCYTE SEDIMENTATION RATE 12 mm/hr (0-30)
== END ==
LOC: M PLALAB 10:18
PROVIDERS: ATTEND Internal Medicine Rheumatology
DX: M05.79 Rheumatoid arthritis with rheumatoid factor of multiple sites without organ or systems involvement (principal); M89.49 Other hypertrophic osteoarthropathy, multiple sites; D72.819 Decreased white blood cell count, unspecified; Z79.52 Long term (current) use of systemic steroids; Z79.899 Other long term (current) drug therapy; Z94.1 Heart transplant status

== ENCOUNTER → 2024-05-05 | Outpatient (CLI) | payer MEDICARE ==
[~2024-05-05] MED LIST changes: -LEVO750T14 PO; +LEVO75TAB PO
== END ==
LOC: M WHC 07:38
PROVIDERS: ATTEND Family Medicine
DX: C50.911 Malignant neoplasm of unspecified site of right female breast (principal); R92.323 Mammographic fibroglandular density, bilateral breasts
CPT/HCPCS: 77065; G0279

== ENCOUNTER → 2024-05-05 | Outpatient (CLI) | payer MEDICARE ==
[2024-05-05 11:23] LABS: HEMATOCRIT 42.5 % (36.0-47.0); HEMOGLOBIN 14.4 g/dl (12.0-15.5); MEAN CORPUSCULAR HEMOGLOBIN 35.6 pg (27.0-33.0); MEAN CORPUSCULAR HGB CONC 33.9 g/dl (32.0-36.5); MEAN CORPUSCULAR VOLUME 104.9 fl (80.0-96.0); PLATELET COUNT, AUTOMATED 159 10^3/uL (150-450); RED BLOOD COUNT 4.05 10^6/uL (4.00-5.40); WHITE BLOOD COUNT 2.5 10^3/uL (4.0-10.0)
[2024-05-05 11:33] LABS: ALBUMIN 3.5 G/DL (3.2-5.2); ALKALINE PHOSPHATASE 67 U/L (35-104); ALT/SGPT 29 U/L (7.0-40); AST/SGOT 30 U/L (<34); BILIRUBIN,TOTAL 0.6 MG/DL (0.3-1.2); BLOOD UREA NITROGEN 14 MG/DL (9-23); CALCIUM LEVEL 8.6 MG/DL (8.5-10.1); CARBON DIOXIDE LEVEL 36 MMOL/L (20-31); CHLORIDE LEVEL 105 MMOL/L (98-107); CHOLESTEROL LEVEL 187 MG/DL (<200); CHOLESTEROL RISK RATIO 1.64 (<5); CREATININE FOR GFR 0.75 MG/DL (0.55-1.30); GLOMERULAR FILTRATION RATE > 60.0 (>51); GLUCOSE, FASTING 94 MG/DL (60-100); HDL CHOLESTEROL 113.8 MG/DL (>40); LDL CHOLESTEROL 56.6 MG/DL (<100); NON-HDL-C 73.2 MG/DL; POTASSIUM SERUM 3.4 MMOL/L (3.5-5.1); SODIUM LEVEL 144 MMOL/L (136-145); TOTAL PROTEIN 6.3 G/DL (5.7-8.2); TRIGLYCERIDES LEVEL 83 MG/DL (<150)
[2024-05-05 11:37] LABS: THYROID STIMULATING HORMONE 4.464 uIU/ML (0.55-4.78)
[2024-05-05 12:03] LABS: HEMOGLOBIN A1c 4.9 % (4.0-6.0)
== END ==
LOC: M PLALAB 08:53
PROVIDERS: ATTEND Family Medicine
DX: Z13.1 Encounter for screening for diabetes mellitus (principal); E78.5 Hyperlipidemia, unspecified; E03.9 Hypothyroidism, unspecified; Z94.1 Heart transplant status

== ENCOUNTER → 2024-05-05 | Outpatient (CLI) | payer MEDICARE ==
[2024-05-05 11:23] LABS: BASO % 0.8 % (0.0-1.0); EOS % 1.2 % (0.0-3.0); HEMATOCRIT 42.7 % (36.0-47.0); HEMOGLOBIN 14.5 g/dl (12.0-15.5); LYMPH # 0.3 10^3/uL (1.5-5.0); LYMPH % 12.7 % (24.0-44.0); MEAN CORPUSCULAR HEMOGLOBIN 35.8 pg (27.0-33.0); MEAN CORPUSCULAR VOLUME 105.4 fl (80.0-96.0); MONO # 0.5 10^3/uL (0.0-0.8); MONO % 18.9 % (2.0-8.0); NEUTROPHILS # 1.7 10^3/uL (1.5-8.5); NEUTROPHILS % 65.2 % (36.0-66.0); PLATELET COUNT, AUTOMATED 166 10^3/uL (150-450); RED BLOOD COUNT 4.05 10^6/uL (4.00-5.40); WHITE BLOOD COUNT 2.6 10^3/uL (4.0-10.0)
[2024-05-05 12:11] LABS: ALBUMIN 3.4 G/DL (3.2-5.2); ALKALINE PHOSPHATASE 68 U/L (35-104); ALT/SGPT 29 U/L (7.0-40); AST/SGOT 32 U/L (<34); BILIRUBIN,TOTAL 0.6 MG/DL (0.3-1.2); BLOOD UREA NITROGEN 15 MG/DL (9-23); CALCIUM LEVEL 8.8 MG/DL (8.5-10.1); CARBON DIOXIDE LEVEL 35 MMOL/L (20-31); CHLORIDE LEVEL 103 MMOL/L (98-107); CREATININE FOR GFR 0.75 MG/DL (0.55-1.30); GLOMERULAR FILTRATION RATE > 60.0 (>51); GLUCOSE, FASTING 91 MG/DL (60-100); MAGNESIUM LEVEL 1.3 MG/DL (1.8-2.4); POTASSIUM SERUM 3.2 MMOL/L (3.5-5.1); SODIUM LEVEL 145 MMOL/L (136-145); TOTAL PROTEIN 6.6 G/DL (5.7-8.2); TRIGLYCERIDES LEVEL 73 MG/DL (<150)
== END ==
LOC: M PLALAB 08:49
PROVIDERS: ATTEND Nurse Practitioner Acute Care
DX: Z94.1 Heart transplant status (principal)

== ENCOUNTER → 2024-05-28 | Outpatient (CLI) | payer MEDICARE ==
[2024-05-28 11:15] LABS: BASO % 0.8 % (0.0-1.0); EOS % 1.1 % (0.0-3.0); HEMATOCRIT 45.5 % (36.0-47.0); HEMOGLOBIN 15.4 g/dl (12.0-15.5); LYMPH # 0.5 10^3/uL (1.5-5.0); LYMPH % 13.3 % (24.0-44.0); MEAN CORPUSCULAR HEMOGLOBIN 35.7 pg (27.0-33.0); MEAN CORPUSCULAR HGB CONC 33.8 g/dl (32.0-36.5); MEAN CORPUSCULAR VOLUME 105.6 fl (80.0-96.0); MONO # 0.7 10^3/uL (0.0-0.8); MONO % 19.5 % (2.0-8.0); NEUTROPHILS # 2.4 10^3/uL (1.5-8.5); NEUTROPHILS % 64.2 % (36.0-66.0); PLATELET COUNT, AUTOMATED 168 10^3/uL (150-450); RED BLOOD COUNT 4.31 10^6/uL (4.00-5.40); WHITE BLOOD COUNT 3.8 10^3/uL (4.0-10.0)
[2024-05-28 11:24] LABS: TOTAL PROTEIN,RANDOM URINE 33.2 MG/DL (0.0-14.0)
[2024-05-28 11:29] LABS: CREATININE,RANDOM URINE 242.8 MG/DL
[2024-05-28 11:31] LABS: ALBUMIN 3.3 G/DL (3.2-5.2); ALKALINE PHOSPHATASE 66 U/L (35-104); ALT/SGPT 25 U/L (7.0-40); AST/SGOT 28 U/L (<34); BILIRUBIN,TOTAL 0.6 MG/DL (0.3-1.2); BLOOD UREA NITROGEN 12 MG/DL (9-23); CALCIUM LEVEL 8.1 MG/DL (8.5-10.1); CARBON DIOXIDE LEVEL 36 MMOL/L (20-31); CHLORIDE LEVEL 104 MMOL/L (98-107); CHOLESTEROL LEVEL 188 MG/DL (<200); CHOLESTEROL RISK RATIO 1.57 (<5); GLOMERULAR FILTRATION RATE > 60.0 (>51); GLUCOSE, FASTING 86 MG/DL (60-100); HDL CHOLESTEROL 119.3 MG/DL (>40); LDL CHOLESTEROL 52.5 MG/DL (<100); MAGNESIUM LEVEL 1.2 MG/DL (1.8-2.4); NON-HDL-C 68.7 MG/DL; SODIUM LEVEL 146 MMOL/L (136-145); TOTAL PROTEIN 6.4 G/DL (5.7-8.2); TRIGLYCERIDES LEVEL 81 MG/DL (<150)
[2024-05-28 11:34] LABS: THYROID STIMULATING HORMONE 6.479 uIU/ML (0.55-4.78); TOTAL 25(OH) VITAMIN D 53.2 NG/ML (20.0-100.0)
[2024-05-28 11:35] LABS: FREE T4 1.33 NG/DL (0.89-1.76)
[2024-05-28 11:43] LABS: CREATININE CLEARANCE, URINE 99.5 ML/MIN (75-115); CREATININE, SERUM 0.8 MG/DL (0.55-1.02); CREATININE, URINE 33.24 MG/DL
[2024-05-28 12:01] LABS: HEMOGLOBIN A1c 4.8 % (4.0-6.0)
[2024-06-01 01:58] LABS: SIROLIMUS (RAPAMUNE) 4.4 mcg/L (3.0-18.0)
[2024-06-01 04:52] LABS: CMV QUANT DNA PCR (PLASMA) Not Detected; CMV SOURCE Whole Blood; log10 CMV QN DNA P1 Not Detected log IU/mL
[2024-06-01 17:38] LABS: EBV PCR QUANTITATIVE 423 copies/mL; EBV SOURCE Whole Blood; log10 EBV DNA QN PCR 2.63 Log cps/mL
== END ==
LOC: M PLALAB 07:42
PROVIDERS: ATTEND Nurse Practitioner Acute Care
DX: Z94.1 Heart transplant status (principal); Z79.899 Other long term (current) drug therapy; Z13.29 Encounter for screening for other suspected endocrine disorder; Z13.21 Encounter for screening for nutritional disorder

== ENCOUNTER → 2024-06-09 | Outpatient (CLI) | payer MEDICARE ==
[2024-06-09 11:22] LABS: BASO % 0.5 % (0.0-1.0); EOS % 1.5 % (0.0-3.0); HEMATOCRIT 42.7 % (36.0-47.0); HEMOGLOBIN 14.2 g/dl (12.0-15.5); LYMPH # 0.5 10^3/uL (1.5-5.0); LYMPH % 22.7 % (24.0-44.0); MEAN CORPUSCULAR HEMOGLOBIN 36.1 pg (27.0-33.0); MEAN CORPUSCULAR HGB CONC 33.3 g/dl (32.0-36.5); MEAN CORPUSCULAR VOLUME 108.7 fl (80.0-96.0); MONO # 0.4 10^3/uL (0.0-0.8); MONO % 18.7 % (2.0-8.0); NEUTROPHILS # 1.1 10^3/uL (1.5-8.5); NEUTROPHILS % 55.6 % (36.0-66.0); PLATELET COUNT, AUTOMATED 151 10^3/uL (150-450); RED BLOOD COUNT 3.93 10^6/uL (4.00-5.40)
[2024-06-09 11:56] LABS: HEMOGLOBIN A1c 4.8 % (4.0-6.0)
[2024-06-09 12:11] LABS: ALBUMIN 3.2 G/DL (3.2-5.2); ALKALINE PHOSPHATASE 67 U/L (35-104); ALT/SGPT 31 U/L (7.0-40); AST/SGOT 34 U/L (<34); BILIRUBIN,TOTAL 0.5 MG/DL (0.3-1.2); BLOOD UREA NITROGEN 11 MG/DL (9-23); CALCIUM LEVEL 8.3 MG/DL (8.5-10.1); CARBON DIOXIDE LEVEL 33 MMOL/L (20-31); CHLORIDE LEVEL 106 MMOL/L (98-107); CHOLESTEROL LEVEL 167 MG/DL (<200); CHOLESTEROL RISK RATIO 1.56 (<5); CREATININE FOR GFR 0.66 MG/DL (0.55-1.30); FREE T4 1.02 NG/DL (0.89-1.76); GLOMERULAR FILTRATION RATE > 60.0 (>51); GLUCOSE, FASTING 105 MG/DL (60-100); HDL CHOLESTEROL 106.8 MG/DL (>40); LDL CHOLESTEROL 52.4 MG/DL (<100); MAGNESIUM LEVEL 1.3 MG/DL (1.8-2.4); NON-HDL-C 60.2 MG/DL; POTASSIUM SERUM 3.5 MMOL/L (3.5-5.1); SODIUM LEVEL 146 MMOL/L (136-145); THYROID STIMULATING HORMONE 7.918 uIU/ML (0.55-4.78); TOTAL 25(OH) VITAMIN D 52.8 NG/ML (20.0-100.0); TOTAL PROTEIN 6.1 G/DL (5.7-8.2); TRIGLYCERIDES LEVEL 39 MG/DL (<150)
== END ==
LOC: M PLALAB 08:29
PROVIDERS: ATTEND Nurse Practitioner Acute Care
DX: Z94.1 Heart transplant status (principal); Z79.899 Other long term (current) drug therapy; E78.5 Hyperlipidemia, unspecified; Z13.29 Encounter for screening for other suspected endocrine disorder; Z13.1 Encounter for screening for diabetes mellitus; Z13.21 Encounter for screening for nutritional disorder

== ENCOUNTER → 2024-07-06 | Outpatient (REF) | payer MEDICARE ==
[~2024-07-06] MED LIST changes: +VANC125C13 PO; -VANC125C3 PO
[2024-07-06 11:29] LABS: BASO % 0.5 % (0.0-1.0); EOS # 0.1 10^3/uL (0.0-0.5); EOS % 2.5 % (0.0-3.0); HEMATOCRIT 43.4 % (36.0-47.0); HEMOGLOBIN 14.8 g/dl (12.0-15.5); LYMPH # 0.4 10^3/uL (1.5-5.0); LYMPH % 18.2 % (24.0-44.0); MEAN CORPUSCULAR HEMOGLOBIN 36.1 pg (27.0-33.0); MEAN CORPUSCULAR HGB CONC 34.1 g/dl (32.0-36.5); MEAN CORPUSCULAR VOLUME 105.9 fl (80.0-96.0); MONO # 0.3 10^3/uL (0.0-0.8); MONO % 15.3 % (2.0-8.0); NEUTROPHILS # 1.3 10^3/uL (1.5-8.5); NEUTROPHILS % 62.5 % (36.0-66.0); PLATELET COUNT, AUTOMATED 162 10^3/uL (150-450)
[2024-07-06 12:01] LABS: ALBUMIN 3.4 G/DL (3.2-5.2); ALKALINE PHOSPHATASE 65 U/L (35-104); ALT/SGPT 27 U/L (7.0-40); AST/SGOT 27 U/L (<34); BILIRUBIN,TOTAL 0.9 MG/DL (0.3-1.2); BLOOD UREA NITROGEN 14 MG/DL (9-23); CALCIUM LEVEL 8.3 MG/DL (8.5-10.1); CARBON DIOXIDE LEVEL 32 MMOL/L (20-31); CHLORIDE LEVEL 106 MMOL/L (98-107); CREATININE FOR GFR 0.78 MG/DL (0.55-1.30); GLOMERULAR FILTRATION RATE > 60.0 (>51); GLUCOSE, FASTING 138 MG/DL (60-100); MAGNESIUM LEVEL 1.5 MG/DL (1.8-2.4); POTASSIUM SERUM 3.6 MMOL/L (3.5-5.1); SODIUM LEVEL 146 MMOL/L (136-145); TOTAL PROTEIN 6.4 G/DL (5.7-8.2); TRIGLYCERIDES LEVEL 62 MG/DL (<150)
[2024-07-08 14:56] LABS: FK 506 (TACROLIMUS) 6.6 mcg/L (5.0-20.0)
[2024-07-08 19:57] LABS: EBV PCR QUANTITATIVE 200 copies/mL; EBV SOURCE Whole Blood
[2024-07-09 01:13] LABS: SIROLIMUS (RAPAMUNE) 4.4 mcg/L (3.0-18.0)
== END ==
LOC: M PLALAB 10:23
PROVIDERS: ATTEND Nurse Practitioner Acute Care
DX: Z94.1 Heart transplant status (principal); E83.42 Hypomagnesemia; Z91.89 Other specified personal risk factors, not elsewhere classified; D84.9 Immunodeficiency, unspecified; Z79.899 Other long term (current) drug therapy

== ENCOUNTER → 2024-11-16 | Outpatient (CLI) | payer MEDICARE ==
[~2024-11-16] MED LIST changes: +AMLO-751 PO; -AMLO10TA PO; -PRAV40TA2 PO; +PRAV40TA85 PO; +ZOLP-532 PO
[2024-11-16 11:04] LABS: BASO # 0.0 10^3/uL (0.0-0.2); BASO % 0.4 % (0.0-1.0); EOS # 0.0 10^3/uL (0.0-0.5); EOS % 1.5 % (0.0-3.0); LYMPH # 0.4 10^3/uL (1.5-5.0); LYMPH % 15.8 % (24.0-44.0); MONO # 0.4 10^3/uL (0.0-0.8); MONO % 16.2 % (2.0-8.0); NEUTROPHILS # 1.7 10^3/uL (1.5-8.5); NEUTROPHILS % 65.0 % (36.0-66.0); PLATELET COUNT, AUTOMATED 164 10^3/uL (150-450)
[2024-11-16 11:12] LABS: ERYTHROCYTE SEDIMENTATION RATE 14 mm/hr (0-30)
[2024-11-16 11:24] LABS: ALT/SGPT 27 U/L (7.0-40); AST/SGOT 34 U/L (<34); C REACTIVE PROTEIN QUANTITATIV < 0.50 MG/DL (<1.0); CALCIUM LEVEL 8.7 MG/DL (8.5-10.1); CARBON DIOXIDE LEVEL 32 MMOL/L (20-31); CHLORIDE LEVEL 103 MMOL/L (98-107); CREATININE FOR GFR 0.86 MG/DL (0.55-1.30); GLOMERULAR FILTRATION RATE 77.8 (>51); POTASSIUM SERUM 3.9 MMOL/L (3.5-5.1); SODIUM LEVEL 147 MMOL/L (136-145)
== END ==
LOC: M PLALAB 07:37
PROVIDERS: ATTEND Internal Medicine Rheumatology
DX: M05.79 Rheumatoid arthritis with rheumatoid factor of multiple sites without organ or systems involvement (principal)

== ENCOUNTER → 2024-11-16 | Outpatient (CLI) | payer MEDICARE ==
[2024-11-16 11:06] LABS: BASO # 0.0 10^3/uL (0.0-0.2); BASO % 0.4 % (0.0-1.0); EOS # 0.1 10^3/uL (0.0-0.5); EOS % 1.9 % (0.0-3.0); LYMPH # 0.5 10^3/uL (1.5-5.0); LYMPH % 17.5 % (24.0-44.0); MONO # 0.5 10^3/uL (0.0-0.8); MONO % 16.7 % (2.0-8.0); NEUTROPHILS # 1.7 10^3/uL (1.5-8.5); NEUTROPHILS % 62.0 % (36.0-66.0); PLATELET COUNT, AUTOMATED 158 10^3/uL (150-450)
[2024-11-16 11:23] LABS: ALT/SGPT 27.0 U/L (7.0-40); AST/SGOT 33.0 U/L (<34); CALCIUM LEVEL 8.7 MG/DL (8.5-10.1); CARBON DIOXIDE LEVEL 32.0 MMOL/L (20-31); CHLORIDE LEVEL 104.0 MMOL/L (98-107); CREATININE FOR GFR 0.86 MG/DL (0.55-1.30); GLOMERULAR FILTRATION RATE 77.8 (>51); MAGNESIUM LEVEL 1.4 MG/DL (1.8-2.4); POTASSIUM SERUM 4.0 MMOL/L (3.5-5.1); SODIUM LEVEL 147.0 MMOL/L (136-145); TRIGLYCERIDES LEVEL 62.0 MG/DL (<150)
== END ==
LOC: M PLALAB 07:39
PROVIDERS: ATTEND Nurse Practitioner Acute Care
DX: Z79.899 Other long term (current) drug therapy (principal); Z94.1 Heart transplant status; Z91.89 Other specified personal risk factors, not elsewhere classified; D84.9 Immunodeficiency, unspecified; E83.42 Hypomagnesemia

== ENCOUNTER → 2024-12-31 | Outpatient (CLI) | payer MEDICARE | LOC: M RAD 07:41 | PROVIDERS: ATTEND Internal Medicine Pulmonary Disease | DX: Z12.2 Encounter for screening for malignant neoplasm of respiratory organs (principal); Z87.891 Personal history of nicotine dependence; J98.11 Atelectasis; I70.0 Atherosclerosis of aorta ==

== ENCOUNTER → 2025-01-01 | Outpatient (CLI) | payer MEDICARE, OTHER | LOC: M ONCR 08:26 | PROVIDERS: ATTEND General Practice | DX: Z08 Encounter for follow-up examination after completed treatment for malignant neoplasm (principal); Z85.3 Personal history of malignant neoplasm of breast; I89.0 Lymphedema, not elsewhere classified; E66.9 Obesity, unspecified; Z87.891 Personal history of nicotine dependence; Z98.84 Bariatric surgery status; Z90.11 Acquired absence of right breast and nipple; Z92.21 Personal history of antineoplastic chemotherapy; Z92.3 Personal history of irradiation; Z79.52 Long term (current) use of systemic steroids; Z79.811 Long term (current) use of aromatase inhibitors; Z79.82 Long term (current) use of aspirin; Z79.899 Other long term (current) drug therapy; Z88.1 Allergy status to other antibiotic agents; Z88.2 Allergy status to sulfonamides; Z88.5 Allergy status to narcotic agent; Z88.6 Allergy status to analgesic agent; Z88.8 Allergy status to other drugs, medicaments and biological substances ==

== ENCOUNTER → 2025-02-03 | Outpatient (CLI) | payer MEDICARE ==
[2025-02-03 12:38] LABS: BASO # 0.0 10^3/uL (0.0-0.2); BASO % 1.1 % (0.0-1.0); EOS # 0.0 10^3/uL (0.0-0.5); EOS % 2.2 % (0.0-3.0); LYMPH # 0.3 10^3/uL (1.5-5.0); LYMPH % 18.5 % (24.0-44.0); MONO # 0.4 10^3/uL (0.0-0.8); MONO % 23.4 % (2.0-8.0); NEUTROPHILS # 1.0 10^3/uL (1.5-8.5); NEUTROPHILS % 53.2 % (36.0-66.0); PLATELET COUNT, AUTOMATED 139 10^3/uL (150-450)
[2025-02-03 12:42] LABS: ALT/SGPT 34 U/L (7.0-40); AST/SGOT 37 U/L (<34); C REACTIVE PROTEIN QUANTITATIV < 0.50 MG/DL (<1.0); CALCIUM LEVEL 7.9 MG/DL (8.5-10.1); CARBON DIOXIDE LEVEL 32 MMOL/L (20-31); CHLORIDE LEVEL 105 MMOL/L (98-107); CREATININE FOR GFR 0.79 MG/DL (0.55-1.30); GLOMERULAR FILTRATION RATE 86.1 (>51); POTASSIUM SERUM 3.7 MMOL/L (3.5-5.1); SODIUM LEVEL 144 MMOL/L (136-145)
[2025-02-03 12:56] LABS: ERYTHROCYTE SEDIMENTATION RATE 17 mm/hr (0-30)
== END ==
LOC: M PLALAB 07:33
PROVIDERS: ATTEND Internal Medicine Rheumatology
DX: M05.79 Rheumatoid arthritis with rheumatoid factor of multiple sites without organ or systems involvement (principal)

== ENCOUNTER → 2025-02-03 | Outpatient (CLI) | payer MEDICARE ==
[2025-02-03 12:49] LABS: BASO # 0.0 10^3/uL (0.0-0.2); BASO % 1.0 % (0.0-1.0); EOS # 0.0 10^3/uL (0.0-0.5); EOS % 1.5 % (0.0-3.0); LYMPH # 0.4 10^3/uL (1.5-5.0); LYMPH % 18.6 % (24.0-44.0); MONO # 0.5 10^3/uL (0.0-0.8); MONO % 26.3 % (2.0-8.0); NEUTROPHILS # 1.0 10^3/uL (1.5-8.5); NEUTROPHILS % 51.1 % (36.0-66.0); PLATELET COUNT, AUTOMATED 131 10^3/uL (150-450)
[2025-02-03 13:13] LABS: ALT/SGPT 31.0 U/L (7.0-40); AST/SGOT 35.0 U/L (<34); CALCIUM LEVEL 7.9 MG/DL (8.5-10.1); CARBON DIOXIDE LEVEL 31.0 MMOL/L (20-31); CHLORIDE LEVEL 105.0 MMOL/L (98-107); CREATININE FOR GFR 0.79 MG/DL (0.55-1.30); GLOMERULAR FILTRATION RATE 86.1 (>51); MAGNESIUM LEVEL 1.5 MG/DL (1.8-2.4); POTASSIUM SERUM 3.7 MMOL/L (3.5-5.1); SODIUM LEVEL 145.0 MMOL/L (136-145); TRIGLYCERIDES LEVEL 50.0 MG/DL (<150)
[2025-02-05 14:18] LABS: FK 506 (TACROLIMUS) 4.6 mcg/L (5.0-20.0)
[2025-02-06 16:56] LABS: SIROLIMUS (RAPAMUNE) 4.5 mcg/L (3.0-18.0)
== END ==
LOC: M PLALAB 07:35
PROVIDERS: ATTEND Nurse Practitioner Acute Care
DX: Z51.81 Encounter for therapeutic drug level monitoring (principal); Z79.899 Other long term (current) drug therapy; E83.42 Hypomagnesemia; D84.9 Immunodeficiency, unspecified; Z94.1 Heart transplant status

== ENCOUNTER → 2025-02-03 | Outpatient (CLI) | payer MEDICARE | LOC: M WHC 08:15 | PROVIDERS: ATTEND Family Medicine | DX: Z13.820 Encounter for screening for osteoporosis (principal); Z79.899 Other long term (current) drug therapy; Z79.51 Long term (current) use of inhaled steroids ==

== ENCOUNTER → 2025-03-30 | Outpatient (CLI) | payer MEDICARE ==
[~2025-03-30] MED LIST changes: +DAPS25TA17 PO; -DAPS25TA2 PO; -VALC450T PO; +VALG450T18 PO
== END ==
LOC: M PLAIMG 12:42
PROVIDERS: ATTEND Family Medicine
DX: R05.1 Acute cough (principal)

== ENCOUNTER 2025-04-15 07:34 | Inpatient (IN) | payer MEDICARE ==
[~2025-04-15] VITALS: Ht 170.2 cm; Wt 87.7 kg
[2025-04-15 08:32] LABS: VENOUS BASE EXCESS 5.9 (-2.0-2.0); VENOUS HCO3 32.0 MMOL/L (23.0-27.0); VENOUS O2 SATURATION 68.1 % (60.0-80.0); VENOUS PARTIAL PRESSURE CO2 51.6 mmHg (38.0-50.0); VENOUS PARTIAL PRESSURE O2 35.4 mmHg (30.0-50.0); VENOUS PH 7.411 UNITS (7.330-7.430); VENOUS STANDARD HCO3 28.9 MMOL/L; VENOUS TOTAL CO2 33.6 MMOL/L (24.0-28.0)
[2025-04-15 08:40] LABS: BASO # 0.0 10^3/uL (0.0-0.2); BASO % 0.4 % (0.0-1.0); EOS # 0.0 10^3/uL (0.0-0.5); EOS % 0.4 % (0.0-3.0); LYMPH # 0.1 10^3/uL (1.5-5.0); LYMPH % 3.2 % (24.0-44.0); MONO # 0.3 10^3/uL (0.0-0.8); MONO % 12.7 % (2.0-8.0); NEUTROPHILS # 2.1 10^3/uL (1.5-8.5); NEUTROPHILS % 81.7 % (36.0-66.0); PLATELET COUNT, AUTOMATED 120 10^3/uL (150-450)
[2025-04-15 09:12] LABS: CK-MB VALUE MASS < 1.0 NG/ML (<3.6); INR 0.94
[2025-04-15 09:14] LABS: ALT/SGPT 30 U/L (7.0-40); AST/SGOT 34 U/L (<34); CALCIUM LEVEL 7.6 MG/DL (8.5-10.1); CARBON DIOXIDE LEVEL 32 MMOL/L (20-31); CHLORIDE LEVEL 103 MMOL/L (98-107); CPK CREATINE PHOSPHOKINASE 120 U/L (34-145); CREATININE FOR GFR 0.80 MG/DL (0.55-1.30); GLOMERULAR FILTRATION RATE 84.8 (>51); POTASSIUM SERUM 3.7 MMOL/L (3.5-5.1); SODIUM LEVEL 143 MMOL/L (136-145)
[2025-04-15 09:50] LABS: CK-MB VALUE MASS < 1.0 NG/ML (<3.6)
[2025-04-15 09:52] LABS: CPK CREATINE PHOSPHOKINASE 106 U/L (34-145)
[2025-04-15] MEDS: IPRATROPIUM 0.5 MG/ALBUTEROL 2.5 MG INH SOL UD 3 ML NEB ONE (10:09)
[2025-04-15] MEDS: OSELTAMIVIR PHOSPHATE 75 MG CAP PO ONE (10:13)
[2025-04-15] MEDS: cefTRIAXone SOD 2 GM in DEXTROSE 5% (D5W) ADV/MINI-BAG 50 ML IV ONE (10:14)
[2025-04-15] MEDS: ACETAMINOPHEN 325 MG TAB PO ONE (10:14)
[2025-04-15] MEDS: NS (Normal Saline) 0.9% 1,000 ML IV ONE (10:20)
[2025-04-15] MEDS ORDERED: ISOVUE-370 76% 100 ML VIAL As Ordered ONE (11:23)
[2025-04-15] MEDS ORDERED: MULT-40 PO (11:24)
[2025-04-15] MEDS ORDERED: POTA-151 PO (11:24)
[2025-04-15] MEDS ORDERED: ROSU10TA90 PO (11:24)
[2025-04-15] MEDS ORDERED: HOME MED LIST COMPLETE! XX SCH (11:25)
[2025-04-15] MEDS: AZITHROMYCIN 250 MG TABLET PO ONE (11:27)
[2025-04-15 11:48] LABS: C REACTIVE PROTEIN QUANTITATIV 1.99 MG/DL (<1.0)
[2025-04-15] MEDS: MAGNESIUM OXIDE 400 MG TAB PO SCH (12:33)
[2025-04-15] MEDS: FOLIC ACID 1 MG TAB PO SCH (12:33)
[2025-04-15] MEDS: CYANOCOBALAMIN 500 MCG TAB PO SCH (12:33)
[2025-04-15] MEDS: POTASSIUM CHLORIDE 10MEQ SR TABLET PO SCH (12:33)
[2025-04-15] MEDS: ENOXAPARIN 40 MG/0.4 ML SYRINGE (J1650 PER 10MG) SC SCH (12:49)
[2025-04-15] MEDS: UNRESOLVED PATIENT OWN MED ORDER XX SCH (13:39)
[2025-04-15] MEDS: ALBUTEROL SULFATE 2.5 MG/0.5 ML INH CONCENTRATE NEB SOLN INH SCH (13:51)
[2025-04-15] MEDS: SODIUM CHLORIDE HYPERTONIC 3% 4ML NEB SOL INH SCH (14:00)
[2025-04-15 15:51] VITALS: BP 118/73; TEMP 99.8; O2SAT 93
[2025-04-15] MEDS ORDERED: ACETAMINOPHEN 325 MG TAB PO PRN (16:35)
[2025-04-15 20:09] VITALS: BP 102/63; TEMP 99.8; O2SAT 91
[2025-04-15] MEDS: SYMBICORT 160/4.5MCG INHALER 6GM INH SCH (20:24)
[2025-04-15] MEDS: OSELTAMIVIR PHOSPHATE 75 MG CAP PO SCH (20:41)
[2025-04-15] MEDS: traZODone 100 MG TAB PO SCH (20:41)
[2025-04-15] MEDS: TACROLIMUS 1MG CAP PO SCH (20:42)
[2025-04-15] MEDS: LOSARTAN 50 MG TABLET PO SCH (20:42)
[2025-04-15] MEDS: ALPRAZolam 0.5 MG TAB PO SCH (20:42)
[2025-04-15] MEDS: ROSUVASTATIN 10 MG TAB PO SCH (20:43)
[2025-04-16 04:49] VITALS: BP 96/54; TEMP 99; O2SAT 92
[2025-04-16] MEDS: LEVOTHYROXINE 75 MCG TABLET (0.075 MG) PO SCH (05:24)
[2025-04-16 07:13] LABS: PLATELET COUNT, AUTOMATED 107 10^3/uL (150-450)
[2025-04-16 07:33] LABS: CALCIUM LEVEL 7.0 MG/DL (8.5-10.1); CARBON DIOXIDE LEVEL 30 MMOL/L (20-31); CHLORIDE LEVEL 105 MMOL/L (98-107); CREATININE FOR GFR 0.66 MG/DL (0.55-1.30); GLOMERULAR FILTRATION RATE > 90.0 (>51); POTASSIUM SERUM 3.3 MMOL/L (3.5-5.1); SODIUM LEVEL 142 MMOL/L (136-145)
[2025-04-16] MEDS: TIOTROPIUM BROM 2.5MCG/ACTUATION 4GM INH INH SCH (07:47)
[2025-04-16] MEDS: TACROLIMUS 1MG CAP PO SCH (08:56)
[2025-04-16] MEDS: cefTRIAXone SOD 1 GM in DEXTROSE 5% (D5W) ADV/MINI-BAG 50 ML IV SCH (08:56)
[2025-04-16] MEDS: VENLAFAXINE **XR** 75MG CAPSULE PO SCH (08:57)
[2025-04-16] MEDS: AZITHROMYCIN 250 MG TABLET PO SCH (08:57)
[2025-04-16] MEDS: PANTOPRAZOLE 40MG TAB PO SCH (08:57)
[2025-04-16] MEDS: predniSONE 20 MG TAB PO SCH (08:58)
[2025-04-16] MEDS: ASPIRIN 81 MG ENTERIC TABLET PO SCH (08:58)
[2025-04-16] MEDS: POTASSIUM CHLORIDE 10MEQ SR TABLET PO ONE (11:19)
[2025-04-16] MEDS: SIROLIMUS 0.5MG TABLET (PATIENT'S OWN MED) PO SCH (11:23)
[2025-04-16 12:00] VITALS: BP 124/67; TEMP 97.9; O2SAT 94
[2025-04-16] MEDS: TORSEMIDE 10 MG TABLET PO SCH (13:00)
[2025-04-16] MEDS: amLODIPine 10 MG TAB PO SCH (13:00)
[2025-04-16] MEDS ORDERED: SENNA 8.6 MG TAB PO PRN (13:35)
[2025-04-16] MEDS ORDERED: MIRALAX *UNIT DOSE* 17 GM PACKET PO PRN (13:35)
[2025-04-16 16:00] LABS: MAGNESIUM LEVEL 1.6 MG/DL (1.8-2.4)
[2025-04-16 17:56] VITALS: O2SAT 93
[2025-04-16 20:00] VITALS: BP 144/64; TEMP 98.5; TEMP 99.1; O2SAT 100; O2SAT 96
[2025-04-17 03:34] VITALS: BP 109/69; TEMP 98.7; O2SAT 96
[2025-04-17 07:03] LABS: BASO # 0.0 10^3/uL (0.0-0.2); BASO % 0.4 % (0.0-1.0); EOS # 0.0 10^3/uL (0.0-0.5); EOS % 0.4 % (0.0-3.0); LYMPH # 0.3 10^3/uL (1.5-5.0); LYMPH % 11.5 % (24.0-44.0); MONO # 0.3 10^3/uL (0.0-0.8); MONO % 12.6 % (2.0-8.0); NEUTROPHILS # 1.9 10^3/uL (1.5-8.5); NEUTROPHILS % 73.6 % (36.0-66.0); PLATELET COUNT, AUTOMATED 118 10^3/uL (150-450)
[2025-04-17 07:30] LABS: ALT/SGPT 27 U/L (7.0-40); AST/SGOT 29 U/L (<34); CALCIUM LEVEL 7.5 MG/DL (8.5-10.1); CARBON DIOXIDE LEVEL 30 MMOL/L (20-31); CHLORIDE LEVEL 106 MMOL/L (98-107); CREATININE FOR GFR 0.59 MG/DL (0.55-1.30); GLOMERULAR FILTRATION RATE > 90.0 (>51); POTASSIUM SERUM 3.7 MMOL/L (3.5-5.1); SODIUM LEVEL 143 MMOL/L (136-145)
[2025-04-17] MEDS: MAG SULF 1GM/100ML (MAG RUN) 1 GM in IV 1 EA IV SCH (08:43)
[2025-04-17 08:46] VITALS: BP 118/63
[2025-04-17] MEDS: SIROLIMUS 0.5MG TABLET (PATIENT'S OWN MED) PO SCH (08:47)
[2025-04-17] MEDS ORDERED: OSEL75CA PO (09:09)
[2025-04-17] MEDS ORDERED: AZIT500T5 PO (09:09)
[2025-04-17] MEDS ORDERED: CEFP200T PO (09:09)
[2025-04-17] MEDS ORDERED: PRED10TA2 PO (09:09)
== END 2025-04-17 11:09 | disposition home or self-care (01) | DRG 190 ==
LOC: M ED 07:34 → M ED INP 11:18 → M MSPAV 15:44
PROVIDERS: ADMIT Internal Medicine; ATTEND Internal Medicine
DX: J44.0 Chronic obstructive pulmonary disease with (acute) lower respiratory infection (principal); J15.69 Pneumonia due to other Gram-negative bacteria; I50.22 Chronic systolic (congestive) heart failure; Z94.1 Heart transplant status; D64.9 Anemia, unspecified; Z98.84 Bariatric surgery status; Z85.3 Personal history of malignant neoplasm of breast; Z92.3 Personal history of irradiation; Z92.21 Personal history of antineoplastic chemotherapy; J40 Bronchitis, not specified as acute or chronic; J44.1 Chronic obstructive pulmonary disease with (acute) exacerbation; J11.1 Influenza due to unidentified influenza virus with other respiratory manifestations; I89.0 Lymphedema, not elsewhere classified; E78.5 Hyperlipidemia, unspecified; M06.9 Rheumatoid arthritis, unspecified; K21.9 Gastro-esophageal reflux disease without esophagitis; F39 Unspecified mood [affective] disorder; E03.9 Hypothyroidism, unspecified; I11.0 Hypertensive heart disease with heart failure; Z79.82 Long term (current) use of aspirin; Z79.890 Hormone replacement therapy; Z79.52 Long term (current) use of systemic steroids; Z79.899 Other long term (current) drug therapy; Z88.1 Allergy status to other antibiotic agents; Z88.2 Allergy status to sulfonamides; Z88.5 Allergy status to narcotic agent; Z88.6 Allergy status to analgesic agent; Z88.8 Allergy status to other drugs, medicaments and biological substances